=== PATIENT | female | born 1985 | race Caucasian/White ===

== ENCOUNTER 2017-05-02 11:37 | Emergency (ER) | payer MEDICAID, SELFPAY ==
[2017-05-02 11:39] VITALS: BP 131/87; PULSE 113; RESP 16; TEMP 37.2; O2SAT 97; BMI 32.8
--- NOTE | 2017-05-02 12:11 | CT_ITS ---
STUDY: CT BRAIN WITHOUT CONTRAST REASON FOR EXAM: Female, 31 years old. History of seizures. RADIATION DOSAGE (If Supplied By Facility): CTDIvol = ( 44.99 ) mGy, DLP = ( 796.11 ) mGycm TECHNIQUE: Transaxial CT imaging of the brain was performed without administration of intravenous contrast material. Individualized dose optimization techniques were used for this CT. COMPARISON: None. FINDINGS: Normal soft tissue structures. Normal calvarium. Normal size ventricles and extra-axial spaces for the patient's age. Normal white matter tracts of the cerebral hemispheres. Normal basal ganglia and thalami. Normal brainstem. Normal cerebellum. There is no intracranial hemorrhage. There are no findings of an acute ischemic infarction. Normal visualized paranasal sinuses. CT/Brain/Head without Contrast IMPRESSION: Normal unenhanced CT scan of the brain. Electronically Signed: Jorden Liu MD at 13:20 EST Tel [phone], Service support ,
[2017-05-02] MEDS: HYDROcodone Bitartrate/Apap 5/325 Tablet PO (12:34)
[2017-05-02 12:36] LABS: BUN 16 mg/dL (7-18); Creatinine, Serum 1.02 mg/dL (0.55-1.02); Estimated Creatinine Clearance 71.25 ml/min; Glucose 60 mg/dL (70-110)
[2017-05-02 12:37] LABS: Anion Gap 14 (5-15); BUN/Creat Ratio 15.7 RATIO (10-20); Calcium,Total 8.4 mg/dL (8.5-10.1); Chloride 106 mmol/L (98-107); EST Glomerular Filtration Rate 67 mL/min (>60); Est Glom Filt Rate - Afr Amer 81 mL/min (>60); Sodium Level 141 mmol/L (136-145)
[2017-05-02 12:41] LABS: Pregnancy, Serum, hCG Quali. NEGATIVE Negative (0-9 Nonpreg)
[2017-05-02 12:53] LABS: Absolute Lymphocyte Count 1.13 X10^3/ul (0.83-4.51); Absolute Neutrophil Count 3.8 X10^3/uL (2.0-7.7); Basophil# 0.03 X10^3/uL; Basophil% 0.5 % (0-1); Eosinophil# 0.19 X10^3/uL; Eosinophils% 3.4 % (0-5); Hematocrit 39.5 % (37-47); Hemoglobin 12.4 g/dl (12.0-15.0); Lymphocyte # 1.13 X10^3/ul (4.0); Lymphocyte % 19.9 % (19-41); Mean Corp Hgb Conc 31.4 g/gl (32-36); Mean Corpuscular Hgb 25.5 pg (27.0-32.0); Mean Corpuscular Volume 81.3 fL (81-99); Mean Platelet Vol. 10.1 fl (6.2-12.0); Monocyte% 8.8 % (0-10); Neutrophil # 3.82 X10^3/uL (2.7-7.7); Neutrophil % 67.4 % (47-70); Platelet Count 224 K/mm3 (150-450); RBC Distribution Width CV 15.9 % (11.6-14.6); RBC Distribution Width SD 47.3 fl (35.1-43.9); Red Blood Count 4.86 M/mm3 (4.2-5.4); White Blood Count 5.7 K/mm3 (4.4-11.0)
[2017-05-02 12:55] LABS: POSITIVE COUNT NO; POSITIVE DIFFERENTIAL NO; POSITIVE MORPHOLOGY NO
--- OUTSIDE RECORDS SUMMARY | 2017-05-02 13:24 | XMS RPT_ITS ---
:1985 Author Organization OHIP Care Team Providers Name Role Phone Minnie SELBY (PA-C) Attending Unavailable PAUL CHEEMA Referring Unavailable PAUL CHEEMA Referring Unavailable PAUL CHEEMA Attending Unavailable PAUL CHEEMA Attending Unavailable PAUL CHEEMA Attending Unavailable PAUL CHEEMA Attending Unavailable PAUL CHEEMA Attending Unavailable PAUL CHEEMA Referring Unavailable LETTY CURRY Attending Unavailable LILIANA PEREYRA (PA) Attending Unavailable HILARIO CAMPBELL Attending Unavailable Minnie SELBY (PA-C) Referring Unavailable HILARIO CAMPBELL Attending Unavailable HILARIO CAMPBELL Referring Unavailable Letty Curry Attending Unavailable Paul Cheema Primary Care Unavailable Paul Cheema Primary Care Unavailable Fredrick Harrell Attending Unavailable PROBLEMS PROBLEMS DATE TYPE CONDITION / CODE ATTENDING STATUS SOURCE 08/29/2016 Active Iron deficiency / NA Active [facility] E61.1(ICD-10) Clinic Main [place] Repository 09/22/2015 Active Personal history of NA Active [facility] urinary (tract) Clinic Main infections / [place] Z87.440(ICD-10) Repository 09/08/2015 Active Bariatric surgery NA Active [facility] status / Clinic Main Z98.84(ICD-10) [place] Repository 02/18/2017 Active Restless legs NA Active [facility] syndrome / Clinic Main G25.81(ICD-10) [place] Repository 02/18/2017 Active Other vitamin B12 NA Active [facility] deficiency anemias / Clinic Main D51.8(ICD-10) [place] Repository 08/23/2016 Admitting PERIANAL VENOUS [place], Active [facility] diagnosis THROMBOSIS / [facility] K64.5(ICD-10) Hospital Repository 08/23/2016 Admitting ANEMIA, UNSPECIFIED Rosa, Active [facility] diagnosis / D64.9(ICD-10) [facility] Hospital Repository 08/23/2016 Admitting PERSONAL HISTORY OF Rosa, Active [place] diagnosis OTH DISEASES OF THE [facility] FEMALE GEN / Hospital Z87.42(ICD-10) Repository 08/23/2016 Admitting PERSONAL HISTORY OF Rosa, Active [place] diagnosis URINARY CALCULI / [facility] Z87.442(ICD-10) Hospital Repository 05/31/2016 Active Other specified NA Active [place] [facility] Main states / [place] Z98.890(ICD-10) Repository 05/31/2016 Active Unknown / Minnie SELBY Active [place] UNK([address] (PA-C) Clinic Main Unknown) [place] Repository PROCEDURES PROCEDURES No Procedure Records FoundRESULTS RESULTS BASIC METABOLIC Collected: 05/02/2017 Status: F Source: EM PROFILE (BMP) 11:45 AM [facility] REPOSITORY TYPE CODE TESTS RESULT OUT OF RANGE REFERENCE UNITS LAB L501.0100 Low 70-110 mg/dL GLU 60 LAB L501.1000 Normal 7-18 mg/dL BUN 16 LAB L501.1100 Normal 0.55-1.02 mg/dL 1.02 CREAT,SERUM Result Comment: The validity of the calculated GFR AND GFRAA in patients over70 years has not been determined. Clinical correlation isessential. LAB L501.1110 Normal >60 mL/min EST GFR 67 Result Comment: Non- GFR Calc LAB L501.1115 Normal >60 mL/min EST GFR - 81 AA Result Comment: GFR Calc LAB L501.1255 Normal ml/min Estimated 71.25 CRCL LAB L501.1300 Normal 10-20 RATIO BUN/CRE 15.7 LAB L501.2200 Low 8.5-10 mg/dL CA 8.4 .1 LAB L501.5300 Normal 136-14 mmol/L NA 141 5 LAB L501.5600 Normal 3.5-5. mmol/L K 4.0 1 LAB L501.5900 Normal 98-107 mmol/L CL 106 LAB L501.6100 Normal 21.0-3 mmol/L CO2 21.0 2.0 LAB L501.6200 Normal 5-15 GAP 14 Performed By: #### L500.2500 ####[facility] [address] [place], [address] URINALYSIS WITH Collected: 05/01/2017 Status: F Source: [facility] 4:47 PM [facility] REPOSITORY TYPE CODE TESTS RESULT OUT OF RANGE REFERENCE UNITS LAB UCOL Abnormal Yellow Color Shyla Alert LAB [facility] Abnormal Clear Clarity Cloudy Alert LAB UGLUC Negative mg/dL Glucose, Urine Negative LAB UBIL Negative Bilirubin, Urine Negative LAB UKET Negative Ketones, Urine Negative LAB USPG 1.005-1.030 Specific 1.029 [place], Ur LAB UHGB Negative Hemoglobin/Blood, Negative Ur LAB UPH 4.5-8.0 pH 5.0 LAB UPROT Abnormal Negative mg/dL Protein, Urine 30 Alert LAB UUROB Normal Urobilinogen Normal LAB UNITR Abnormal Negative Nitrites Alert Positive LAB ULKEST Abnormal Negative Leukest 3+ Alert LAB UCOM Comments SEE COMMENT Result Comment: N/A LAB [facility] Urine [facility] SEE COMMENT Comment Result Comment: Interpret results with caution. Urine preservative tube not filled to the required volume. The BD Vacutainer Urinalysis preservative Plus tube must be filled with at least 7 mL and not more than 9 mL of urine in order to maintain the proper additive to urine ratio. LAB UWBC Abnormal Alert 0-5 /HPF WBC >25 LAB URBC 0-3 /HPF RBC 0-3 LAB UEPI /HPF Epithelial SEE Cells COMMENT Result Comment: FewSquamous Epithelial Cells LAB UCRYS Abnormal Alert 0 /HPF Crystals SEE COMMENT Result Comment: FewCalcium Oxalate Crystal Performed By: #### UAWMIC ####[facility] [address] [place], [place] [phone] IRON AND TIBC Collected: 05/01/2017 Status: F Source: [place] 4:42 PM [facility] REPOSITORY TYPE CODE TESTS RESULT OUT OF REFERENCE UNITS RANGE LAB IRN Low 41-186 ug/dL Iron 35 LAB TIBC High 232-386 ug/dL TIBC 525 LAB SAT Low 15-57 % Transferrin 7 Saturatn Performed By: #### IRON, CBCDIF ####[facility] [place], [place] [phone] CBC AND DIFFERENTIAL Collected: 05/01/2017 Status: F Source: [place] 4:42 PM [facility] REPOSITORY TYPE CODE TESTS RESULT OUT OF REFERENCE UNITS RANGE LAB WBC 3.70-11.00 k/uL WBC 6.26 LAB RBC 3.90-5.20 m/uL RBC 4.90 LAB HGB 11.5-15.5 g/dL Hemoglobin 12.7 LAB HCT 36.0-46.0 % Hematocrit 40.5 LAB MCV 80.0-100.0 fL MCV 82.7 LAB MCH Low 26.0-34.0 pG MCH 25.9 LAB MCHC 30.5-36.0 g/dL MCHC 31.4 LAB RDWCV High 11.5-15.0 % RDW-CV 15.9 LAB PLTCT 150-400 k/uL Platelet 272 Count LAB MPV 9.0-12.7 fL MPV 11.2 LAB ANEUT % Neut% 55.3 LAB AANEUT 1.45-7.50 k/uL Abs Neut 3.45 LAB ALYMP % Lymph% 32.4 LAB AALYMP 1.00-4.00 k/uL Abs Lymph 2.03 LAB AMONO % [place]% 8.3 LAB AAMONO <0.87 k/uL Abs [place] 0.52 LAB AEOS % Eosin% 3.5 LAB AAEOS <0.46 k/uL Abs Eosin 0.22 LAB ABASO % Baso% 0.5 LAB AABASO <0.11 k/uL Abs Baso 0.03 LAB AUNRBC 0 /100 WBC NRBCs 0.0 LAB ABNRBC <0.01 k/uL Absolute nRBC <0.01 LAB DTYP DTYPE Auto Diff Performed By: #### IRON, CBCDIF ####[facility] [place], [place] [phone] PROGRESS Observed: 05/01/2017 Status: COMPLETED Source: [place] 4:08 PM [facility] REPOSITORY HNO ID: [id number]: Paul Carbajal: (none) Author Type: PhysicianType: Progress NotesFiled: 05/01/2017 5:08 PMNote Text:Patient presents with:Anemia: discuss iron supplements and b12HPI: Patient presents today for office visit for office visit.Nursing Notes:Isabel Rodriges HEIDY 05/01/2017 4: 01 PM SignedStopped iron about 3 weeks ago due to constipation.Last B12 injection was January.Having issues with iron due to constipation.Is better since she stopped it.Discussed using fruit juice or try a different type of iron with stoolsoftener.No bloody or black stools.She wonders if she can have a uti. Has noticed an odor. No fever orchills.MEDICATIONS:Current Outpatient Prescriptions:buPROPion HCl ( WELLBUTRIN SR) 200 mg 12 hr tablet Take 1 tablet by mouthtwice daily.NUVARING 0.12-0.015 mg/24 hr vaginal ring INSERT 1 RING VAGINALLY ASDIRECTED. REMOVE AFTER 3 WEEKS AND WAIT 7 DAYS BEFORE INSERTING A NEW RINGcyanocobalamin (VITAMIN B-12) 1,000 mcg/mL soln Inject 1 mLintramuscularly once every month. 1 DOSE MONTHLYgabapentin ( NEURONTIN) 300 mg capsule Take 3 capsules by mouth daily atbedtime.valACYclovir (VALTREX) 500 mg tablet TAKE 1 TABLET BY MOUTH TWICE DAILY X3 DAYS THEN ONCE DAILYferrous sulfate 325 mg (65 mg iron) tablet Take 1 tablet by mouth twicedaily with meals. (Patient not taking: Reported on 05/01/2017)No current facility-administered medications for this visit.ALLERGIES:ALLERGIESAllergen Reactions- Adhesive Tape (Maite* Rash- Effexor [Venlafaxin* Other: See Comments Dry heaves, shaking uncotrollable- Latex RashPAST MEDICAL HISTORYDiagnosis Date- Anemia- Chlamydia 2003,2008,2013 x3 - Herpes simplex virus (HSV) infection- Hypoglycemia 08/12/13- Kidney stone- Marijuana use- Mental disorder- RLS (restless legs syndrome) Amezquita- Seizure Overdose of Wellbutrin- Thrombosed hemorrhoids 2013PA SURGICAL HISTORYProcedure Laterality Date- DELIVERY ONLY , low cervical- DELIVERY ONLY N/ A 04/23/2016- GASTRIC BYPASS HX 04/2011- PAST SURGICAL HISTORY OF kidney stoneFAMILY HISTORYProblem Relation Age of Onset- Alcohol/Drug Father- Hypertension Maternal Grandfather CHF- Heart Maternal Grandfather [place]- Cancer Paternal Grandmother throat cancer- Stroke Paternal Grandmother Social History Marital status: Spouse name: Years of education: 12 Number of children: 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 *Social History Main Topics Smoking status: Current Every Day Smoker Packs/day: 0.50 Years: 13.00 Types: Cigarettes Smokeless status: Never Used Alcohol use: Yes Comment: social, not while Drug use: No Comment: Hx marijuana use Sexual activity: Yes control/protection: Other Comment: depo provera, mirena removed 09/29/07Reviewed current medications, allergies, past medical history, surgicalhistory, family history and social history today.REVIEW OF SYSTEMSAll other reviewed and negative other than HPI.VITALS:BP 104/72 Pulse 88 Resp 14 Wt 91.2 kg (201 lb) BMI 33.45 kg/m2Last 4 Encounter Wt Readings: Date: Wt: 05/01/2017 91.2 kg (201 lb) 02/18/2017 91.6 kg (202 lb ) 12/26/2016 88.9 kg (196 lb) 11/05/2016 88.2 kg (194 lb 6.4 oz)PHYSICAL EXAMINATION:General appearance: Well appearing, alert, in no acute distress,well-hydrated, well nourished.Skin: Skin color, texture, turgor normal , no suspicious rashes or lesionsHead: Normocephalic, no masses, lesions, tenderness or abnormalitiesNeck: Supple, no adenopathy; thyroid symmetric, normal size, no bruitsBack: Normal examLungs: Lungs clear to auscultation. No wheezing, rhonchi , ralesHeart: RRR without murmur, gallop, or rubs. No ectopyAbdomen: Normal abdominal exam, Abdomen soft, non-tender. Bowel soundsnormal. No masses, organomegalyExtremities: No deformities, edema, skin discoloration, clubbing orcyanosis. Good capillary refill.ASSESSMENT/PLAN:1. Iron deficiency - ICD9: 280.9, ICD10: E61.1 (primary diagnosis)- recheck labs. Call if any issues. May need to consider other ways ofgetting iron as above or even iv iron. Check ifobt as ordered.- IRON + TIBC- CBC + DIFF2. Other vitamin B12 deficiency anemia - ICD9: 281.1, ICD10: D51.8- continue b123. History of gastric bypass - ICD9: V45.86, ICD10: Z98.84- IRON + TIBC- CBC + DIFF4. History of recurrent UTI (urinary tract infection) - ICD9 : V13.02,ICD10: Z87.440- recheck urine.- URINALYSIS WITH MICROSCOPIC- URINE CULTUREPaul Cheema MD CNOV Observed: 05/01/2017 Status: COMPLETED Source: [place] 3:40 PM [facility] REPOSITORY Office Visit (FAMPWS) ---------CITLALI BECKWITH ([id number]) 1985 [facility] Time Provider Department05/01/17 3:40 PM [facility] During your visit today, we recorded the following information about you: Pulse Respiration Blood pressure Weight 88/minute 14/minute 104/72 91.2 kgIsabel Ritchieherminio MOODY 05/01/2017 4:01 PM SignedStopped iron about 3 weeks ago due to constipation.Last B12 injection was January.Paul Cheema MD 05/01/2017 5:08 PM SignedPatient presents with:Anemia: discuss iron supplements and b12HPI: Patient presents today for office visit for office visit.Nursing Notes:Isabel Zahira MOODY 05/01/2017 4:01 PM SignedStopped iron about 3 weeks ago due to constipation.Last B12 injection was January.Having issues with iron due to constipation.Is better since she stopped it.Discussed using fruit juice or try a different type of iron with stoolsoftener.No bloody or black stools.She wonders if she can have a uti. Has noticed an odor. No fever or chills.MEDICATIONS:Current Outpatient Prescriptions:buPROPion HCl ( WELLBUTRIN SR) 200 mg 12 hr tablet Take 1 tablet by mouth twicedaily.NUVARING 0.12-0.015 mg/24 hr vaginal ring INSERT 1 RING VAGINALLY DIRECTED.REMOVE AFTER 3 WEEKS ANDamp; WAIT 7 DAYS BEFORE INSERTING A NEW RINGcyanocobalamin (VITAMIN B-12) 1,000 mcg/mL soln Inject 1 mL intramuscularlyonce every month. 1 DOSE MONTHLYgabapentin (NEURONTIN) 300 mg capsule Take 3 capsules by mouth daily atbedtime.valACYclovir (VALTREX) 500 mg tablet TAKE 1 TABLET BY MOUTH TWICE DAILY X 3DAYS THEN ONCE DAILYferrous sulfate 325 mg (65 mg iron) tablet Take 1 tablet by mouth twice dailywith meals. (Patient not taking: Reported on 05/01/2017)No current facility-administered medications for this visit.ALLERGIES:ALLERGIESAllergen Reactions- Adhesive Tape (Maite* Rash- Effexor [Venlafaxin* Other: See Comments Dry heaves, shaking uncotrollable- Latex RashPAST MEDICAL HISTORYDiagnosis Date- Anemia- Chlamydia 2003,2008,2013 x3- Herpes simplex virus (HSV) infection- Hypoglycemia 08/12/13- Kidney stone- Marijuana use- Mental disorder- RLS ( restless legs syndrome) Amezquita- Seizure Overdose of Wellbutrin- Thrombosed hemorrhoids 2013PA SURGICAL HISTORYProcedure Laterality Date- DELIVERY ONLY , low cervical- DELIVERY ONLY N/A 04/23/2016- GASTRIC BYPASS HX 04/2011- PAST SURGICAL HISTORY OF kidney stoneFAMILY HISTORYProblem Relation Age of Onset- Alcohol/Drug Father- Hypertension Maternal Grandfather CHF- Heart Maternal Grandfather [place]- Cancer Paternal Grandmother throat cancer- Stroke Paternal Grandmother Social History Marital status: Spouse name: Years of education: 12 Number of children: 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 *Social History Main Topics Smoking status: Current Every Day Smoker Packs/day: 0.50 Years: 13.00 Types: Cigarettes Smokeless status: Never Used Alcohol use: Yes Comment: social, not while Drug use: No Comment: Hx marijuana use Sexual activity: Yes control/protection: Other Comment: depo provera, mirena removed 09/29/07Reviewed current medications, allergies, past medical history, surgicalhistory, family history and social history today.REVIEW OF SYSTEMSAll other reviewed and negative other than HPI.VITALS:BP 104/72 Pulse 88 Resp 14 Wt 91.2 kg (201 lb) BMI 33.45 kg/ m2Last 4 Encounter Wt Readings: Date: Wt: 05/01/2017 91.2 kg (201 lb) 02/18/2017 91.6 kg (202 lb) 12/26/2016 88.9 kg (196 lb) 11/05/2016 88.2 kg (194 lb 6.4 oz)PHYSICAL EXAMINATION:General appearance: Well appearing, alert, in no acute distress, well-hydrated,well nourished.Skin: Skin color, texture, turgor normal, no suspicious rashes or lesionsHead: Normocephalic, no masses, lesions, tenderness or abnormalitiesNeck: Supple, no adenopathy; thyroid symmetric, normal size, no bruitsBack: Normal examLungs: Lungs clear to auscultation. No wheezing, rhonchi , ralesHeart: RRR without murmur, gallop, or rubs. No ectopyAbdomen: Normal abdominal exam, Abdomen soft, non-tender. Bowel sounds normal.No masses, organomegalyExtremities: No deformities, edema, skin discoloration, clubbing or cyanosis.Good capillary refill.ASSESSMENT/PLAN:1. Iron deficiency - ICD9: 280.9, ICD10: E61.1 (primary diagnosis)- recheck labs. Call if any issues. May need to consider other ways of gettingiron as above or even iv iron. Check ifobt as ordered.- IRON + TIBC- CBC + DIFF2. Other vitamin B12 deficiency anemia - ICD9: 281.1, ICD10: D51.8- continue b123. History of gastric bypass - ICD9: V45.86, ICD10: Z98.84- IRON + TIBC- CBC + DIFF4. History of recurrent UTI (urinary tract infection) - ICD9: V13.02, ICD10:Z87.440- recheck urine.- URINALYSIS WITH MICROSCOPIC- URINE CULTURESTEVE Ashleyeferring Provider: SELF [200]Allergies As of Date: Noted Allergy ReactionADHESIVE TAPE (ROSINS) 08/14/2013 2 - RashEFFEXOR ( VENLAFAXINE) 05/01/2017 14 - Other: See Comments Comments: Dry heaves, shaking uncotrollableLATEX 07/09/2007 2 - RashDate Reviewed: 05/01/2017Reviewed by: Isabel Rodriges LPN - Fully AssessedReason for Visit: Anemia [6] Cmt: discuss iron supplements and [id number] Visit Diagnosis:Iron deficiency [E61.1] Other Visit Diagnoses:Other vitamin B12 deficiency anemia [D51.8] 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] History of recurrent UTI (urinary tract infection) [Z87.440]Order(s ):IRON + TIBC [SQIRON] Order #: [id number] FUTURE CBC + DIFF [SQCBCDIF] Order #: [id number] FUTURE URINALYSIS WITH MICROSCOPIC [SQUAWMIC] Order #: [id number]. #: [id number] URINE CULTURE [SQURCUL] Order #: [id number] FUTURE cyanocobalamin 1,000 mcg/mL solnInject 1 mL intramuscularly once every month.Disp: 1 mLRfl: 12Prescriptions as of 05/01/2017 Sig: BUPROPION HCL SR 200 MG TABLE* Take 1 tablet by mouth twice * NUVARING 0.12 MG -0.015 MG/24* INSERT 1 RING VAGINALLY DI* CYANOCOBALAMIN (VIT B- 12) 1,0* Inject 1 mL intramuscularly o* GABAPENTIN 300 MG CAPSULE Take 3 capsules by mouth madina* CYANOCOBALAMIN (VIT B-12) 1,0* Inject 1 mL intramuscularly o* VALACYCLOVIR 500 MG TABLET TAKE 1 TABLET BY MOUTH TWICE * FERROUS SULFATE 325 MG (65 MG* Take 1 tablet by mouth twice * Patient not taking: Reported on 05/01/2017Problem List As Of Date Noted Resolved ADJUSTMENT REACTION NOS [F43.20] INVALID FOR*07/14/2007 Seborrheic dermatitis, unspecified [L21.9] INVALID FOR*08/29/2016 Attention deficit disorder [F98.8] INVALID FOR*08/29/2016 More... Adjustment disorder with depressed mood [F43.21]INVALID FOR*08/29/2016 Tobacco use disorder [F17.200] INVALID FOR*09/13/2015 More... [facility]* INVALID FOR*09/13/2015 Class: Chronic More... Routine gynecological examination [Z01.419] INVALID FOR*09/13/2015 Class: Chronic More... Morbid obesity (HCC) [E66.01] INVALID FOR*09/13/2015 Insomnia [G47.00] INVALID FOR* Thrombosed external hemorrhoid [K64.5] INVALID FOR*09/13/2015 Recurrent UTI ( urinary tract infection) complic*INVALID FOR*08/29/2016 More... Kidney stones [N20.0] INVALID FOR*09/13/2015 Marijuana abuse [F12.10] INVALID FOR* 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] INVALID FOR* History of delivery , currently pregnan*INVALID FOR*05/07/2016 More... History of recurrent UTI (urinary tract infecti*INVALID FOR* More... History of herpes genitalis [Z86.19] INVALID FOR* More... History of depression [Z86.59] INVALID FOR* More... Tobacco use in [O99.330] INVALID FOR*08/29/2016 More... History of marijuana use [Z87.898] INVALID FOR* More... H/O macrosomia in infant in prior , cu*INVALID FOR* More... Patient requested diagnostic testing [Z01.89] INVALID FOR*11/21/2015 More... History of kidney stones [Z87.442] INVALID FOR*09/13/2015 Trichomonal vaginitis during in secon*INVALID FOR*08/29/2016 More... Urgency of urination [R39.15] INVALID FOR*08/29/2016 Frequency of micturition [R35.0] INVALID FOR* UTI (urinary tract infection) in , ant*INVALID FOR*02/16/2016 RLS (restless legs syndrome) [G25.81] INVALID FOR* Iron deficiency [E61.1] INVALID FOR * Anemia due to vitamin B12 deficiency [D51.9] INVALID FOR*Visit Notes:>> Isabel Rodriges LPN Wed May 01, 2017 3:57 PM Status: SignedStopped iron about 3 weeks ago due to constipation.Last B12 injection was January.Prescriptions ordered this encounter Disp Refills Start End CYANOCOBALAMIN (VIT B-12) 1,000 MCG/* 1 mL 12 05/01/2017 Class: Back Office Route: INTRAMUSCULA Sig: Inject 1 mL intramuscularly once every month.Medications Discontinued During This Encounter cyanocobalamin (VITAMIN B-12) 1,000 * 1 mL 0 12/26/2016 05/01/2017 Class: Back Office Route: INTRAMUSCULAR Sig: Inject 1 mL intramuscularly one time only for 1 dose. Disc: Reason for discontinue is not on file. cyanocobalamin (VITAMIN B-12) 1,000 * 1 mL 11 12/28/2015 05/01/2017 Class: Back Office Route: INTRAMUSCULAR Sig: Inject 1 mL intramuscularly one time only for 1 dose. Disc: Reason for discontinue is not on file. cyanocobalamin 1,000 mcg/mL soln 1 mL 0 11/01/2015 05/01/2017 Class: Back Office Route: INTRAMUSCULAR Sig: Inject 1 mL intramuscularly one time only for 1 dose. Disc: Reason for discontinue is not on file.Disposition: Return in about 6 months (around 10/29/2017).Follow-up and Disposition History RecordedEncounter Number: [id number] Status:Closed by PAUL CHEEMA MD on 05/01/17 OBSOLETE Observed: 03/06/2017 Status: COMPLETED Source: [place] 12:00 AM [facility] REPOSITORY Refill (WOOB) -------CITLALI BECKWITH ([id number]) 1985 [facility] Time Provider Vjzormdhlt72/6/17 ANA SALINAS (JACKY) WOOB During your visit today, we recorded the following information about you:Christa Zaragoza RN 03/07/2017 8: 15 AM SignedPatient last seen for exam on 05/30/16.Christa BUCKLEYllergies As of Date: 03/06/2017 Noted Allergy ReactionADHESIVE TAPE (ROSINS) 08/14/2013 2 - RashLATEX 07/09/2007 2 - RashDate Reviewed: 02/18/2017Reviewed by: Isable Rodriges LPN - Fully AssessedReason for Visit: Refill Request [94]Order(s):valACYclovir (VALTREX) 500 mg tabletTAKE 1 TABLET BY MOUTH TWICE DAILY X 3 DAYS THEN ONCE DAILYDisp: 90 tabletRfl : 0Prescriptions as of 03/06/2017 Sig: VALACYCLOVIR 500 MG TABLET TAKE 1 TABLET BY MOUTH TWICE * NUVARING 0.12 MG -0.015 MG/24* INSERT 1 RING VAGINALLY DI* FERROUS SULFATE 325 MG (65 MG* Take 1 tablet by mouth twice * CYANOCOBALAMIN (VIT B-12) 1,0* Inject 1 mL intramuscularly o* BUPROPION XL 300 MG 24 HR TAB Take 1 tablet by mouth once d* GABAPENTIN 300 MG CAPSULE Take 3 capsules by mouth madina*Problem List As Of Date 03/06/2017 Noted Resolved ADJUSTMENT REACTION NOS [F43.20] INVALID FOR*2007 Seborrheic dermatitis, unspecified [L21.9] INVALID FOR*08/29/2016 Attention deficit disorder [F98.8] INVALID FOR*08/29/2016 More... Adjustment disorder with depressed mood [F43.21]INVALID FOR*08/29/2016 Tobacco use disorder [F17.200] INVALID FOR*09/13/2015 More... [facility]* INVALID FOR*09/13/2015 Class: Chronic More... Routine gynecological examination [Z01.419] INVALID FOR*09/13/2015 Class: Chronic More... Morbid obesity (HCC) [E66.01] INVALID FOR*09/13/2015 Insomnia [G47.00] INVALID FOR*09/13/2015 Thrombosed external hemorrhoid [K64.5] INVALID FOR*09/13/2015 Recurrent UTI (urinary tract infection) complic*INVALID FOR*08/29/2016 More... Kidney stones [ N20.0] INVALID FOR*09/13/2015 Marijuana abuse [F12.10] INVALID FOR*08/29/2016 History of gastric bypass [Z98.890] INVALID FOR* History of delivery, currently pregnan*INVALID FOR*05/07/2016 More... History of recurrent UTI (urinary tract infecti*INVALID FOR* More... History of herpes genitalis [Z86.19] INVALID FOR* More... History of depression [Z86.59] INVALID FOR* More... Tobacco use in [O99.330] INVALID FOR*08/29/2016 More... History of marijuana use [Z87.898] INVALID FOR* More... H/O macrosomia in in prior , cu*INVALID FOR*08/29/2016 More... Patient requested diagnostic testing [ Z01.89] INVALID FOR*11/21/2015 More... History of kidney stones [Z87.442] INVALID FOR*09/13/2015 Trichomonal vaginitis during in secon*INVALID FOR*08/29/2016 More... Urgency of urination [R39.15] INVALID FOR*08/29/2016 Frequency of micturition [R35.0] INVALID FOR*08/29/2016 UTI (urinary tract infection) in , ant*INVALID FOR*02/16/2016 RLS (restless legs syndrome) [G25.81] INVALID FOR* Iron deficiency [E61.1] INVALID FOR* Anemia due to vitamin B12 deficiency [D51.9] INVALID FOR*Prescriptions ordered this encounter Disp Refills Start End VALACYCLOVIR 500 MG TABLET 90 t* 0 03/07/2017 Sig: TAKE 1 TABLET BY MOUTH TWICE DAILY X 3 DAYS THEN ONCE DAILYEncounter Number: [id number] Status:Closed by LUCIO DAVID MD on 03/07/17 OBSOLETE Observed: 03/05/2017 Status: COMPLETED Source: [place] 12:00 AM [facility] REPOSITORY Refill (WOOB) -------CITLALI BECKWITH ([id number]) 1985 [facility] Time Provider Auapueztww47/5/17 HILARIO CAMPBELL During your visit today, we recorded the following information about you:Christa Zaragoza RN 03/05/2017 9: 33 AM SignedRefill request received from pharmacy for patients Nuvaring Rx. Patient lastseen in the office on 05/30/16 for exam. Please file refill ifappropriate.Christa Zaragoza RNAllergies As of Date: 03/05/2017 Noted Allergy ReactionADHESIVE TAPE (ROSINS) 08/14 2 - RashLATEX 07/09/2007 2 - RashDate Reviewed: 2016Reviewed by: Isabel Rodriges LPN - Fully AssessedReason for Visit: Refill Request [94]Order(s): NUVARING 0.12-0.015 mg/24 hr vaginal ringINSERT 1 RING VAGINALLY DIRECTED. REMOVE AFTER 3 WEEKS AND WAIT 7 DAYS BEFORE INSERTING A NEW RINGDisp: 1 EachRfl: 3Prescriptions as of 03/05/2017 Sig: NUVARING 0.12 MG -0.015 MG/24* INSERT 1 RING VAGINALLY DI* FERROUS SULFATE 325 MG (65 MG* Take 1 tablet by mouth twice * CYANOCOBALAMIN (VIT B-12) 1,0* Inject 1 mL intramuscularly o* BUPROPION XL 300 MG 24 HR TAB Take 1 tablet by mouth once d* GABAPENTIN 300 MG CAPSULE Take 3 capsules by mouth madina*Problem List As Of Date 03/05/2017 Noted Resolved ADJUSTMENT REACTION NOS [F43.20] INVALID FOR*2007 Seborrheic dermatitis, unspecified [L21.9] INVALID FOR*08/29/2016 Attention deficit disorder [F98.8] INVALID FOR*08/29/2016 More... Adjustment disorder with depressed mood [F43.21]INVALID FOR*08/29/2016 Tobacco use disorder [F17.200] INVALID FOR*09/13/2015 More... [facility]* INVALID FOR*09/13/2015 Class: Chronic More... Routine gynecological examination [Z01.419] INVALID FOR*09/13/2015 Class: Chronic More... Morbid obesity (HCC) [E66.01] INVALID FOR*09/13/2015 Insomnia [G47.00] INVALID FOR*09/13/2015 Thrombosed external hemorrhoid [K64.5] INVALID FOR*09/13/2015 Recurrent UTI (urinary tract infection) complic*INVALID FOR*08/29/2016 More... Kidney stones [ N20.0] INVALID FOR*09/13/2015 Marijuana abuse [F12.10] INVALID FOR*08/29/2016 History of gastric bypass [Z98.890] INVALID FOR* History of delivery, currently pregnan*INVALID FOR*05/07/2016 More... History of recurrent UTI (urinary tract infecti*INVALID FOR* More... History of herpes genitalis [Z86.19] INVALID FOR* More... History of depression [Z86.59] INVALID FOR* More... Tobacco use in [O99.330] INVALID FOR*08/29/2016 More... History of marijuana use [Z87.898] INVALID FOR* More... H/O macrosomia in in prior , cu*INVALID FOR*08/29/2016 More... Patient requested diagnostic testing [ Z01.89] INVALID FOR*11/21/2015 More... History of kidney stones [Z87.442] INVALID FOR*09/13/2015 Trichomonal vaginitis during in secon*INVALID FOR*08/29/2016 More... Urgency of urination [R39.15] INVALID FOR*08/29/2016 Frequency of micturition [R35.0] INVALID FOR*08/29/2016 UTI (urinary tract infection) in , ant*INVALID FOR*02/16/2016 RLS (restless legs syndrome) [G25.81] INVALID FOR* Iron deficiency [E61.1] INVALID FOR* Anemia due to vitamin B12 deficiency [D51.9] INVALID FOR*Prescriptions ordered this encounter Disp Refills Start End NUVARING 0.12 MG -0.015 MG/24 HR VAG* 1 Ea* 3 03/05/2017 Sig: INSERT 1 RING VAGINALLY DIRECTED. REMOVE AFTER 3 WEEKS AND WAIT 7 DAYS BEFORE INSERTING A NEW RINGMedications Discontinued During This Encounter Etonogestrel-Ethinyl Estradiol (NUVA* 1 Ea* 12 05/30/2016 03/05/2017 Class: Print RX Route: VAGINAL Sig: Use 1 Each vaginally as directed. use one ring for 3-4 weeks, remove for 4-7 days and repeat Disc: Reason for discontinue is not on file. Status:Closed by HILARIO CAMPBELL MD on 03/05/17 CBC AND DIFFERENTIAL Collected: 02/18/2017 Status: F Source: [place] 9:22 AM [facility] REPOSITORY TYPE CODE TESTS RESULT OUT OF REFERENCE UNITS RANGE LAB WBC 3.70-11.00 k/uL WBC 5.89 LAB RBC 3.90-5.20 m/uL RBC 4.57 LAB HGB Low 11.5-15.5 g/dL Hemoglobin 10.9 LAB HCT 36.0-46.0 % Hematocrit 36.3 LAB MCV Low 80.0-100.0 fL MCV 79.4 LAB MCH Low 26.0-34.0 pG MCH 23.9 LAB MCHC Low 30.5-36.0 g/dL MCHC 30.0 LAB RDWCV High 11.5-15.0 % RDW-CV 15.4 LAB PLTCT 150-400 k/uL Platelet 315 Count LAB MPV 9.0-12.7 fL MPV 10.6 LAB ANEUT % Neut% 70.3 LAB AANEUT 1.45-7.50 k/uL Abs Neut 4.12 LAB ALYMP % Lymph% 22.4 LAB AALYMP 1.00-4.00 k/uL Abs Lymph 1.32 LAB AMONO % [place]% 5.4 LAB AAMONO <0.87 k/uL Abs [place] 0.32 LAB AEOS % Eosin% 1.4 LAB AAEOS <0.46 k/uL Abs Eosin 0.08 LAB ABASO % Baso% 0.5 LAB AABASO <0.11 k/uL Abs Baso 0.03 LAB AUNRBC 0 /100 WBC NRBCs 0.0 LAB ABNRBC <0.01 k/uL Absolute nRBC <0.01 LAB DTYP DTYPE Auto Diff Performed By: #### CBCDIF, BMP, IRON, B12 ####[facility] [address] [place], [place] [phone] BASIC METABOLIC PANL Collected: 02/18/2017 Status: F Source: [place] 9:22 AM [facility] REPOSITORY TYPE CODE TESTS RESULT OUT OF REFERENCE UNITS RANGE LAB GLU 74-99 mg/dL Glucose 96 Result Comment: The [place] [employer] (ADA) provides guidance for cutoff values for fasting glucose and random glucose. The ADA defines fasting as no caloric intake for at least 8 hours. Fasting plasma glucose results between 100 to 125 mg/dL indicate increased risk for diabetes (prediabetes).Fasting plasma glucose results greater than or equal to 126 mg/dL meet the criteria for diagnosis of diabetes. In the absence of unequivocal hyperglycemia, results should be confirmed by repeat testing. In a patient with classic symptoms of hyperglycemia or hyperglycemic crisis, random plasma glucose results greater than or equal to 200 mg/dL meet the criteria for diagnosis of diabetes.Reference: Standards of Medical Care in Diabetes 2016 , [place] [employer] Association. Diabetes Care. 2016.39(Suppl 1). LAB BUN 7-21 mg/dL BUN 12 LAB CRET 0.58-0.96 mg/dL Creatinine 0.81 LAB NA 136-144 mmol/L Sodium 137 LAB K 3.7-5.1 mmol/L Potassium 3.9 LAB CL 97-105 mmol/L Chloride 101 LAB CO2 22-30 mmol/L CO2 24 LAB AGAP 9-18 mmol/L Anion Gap 12 LAB CA 8.5-10.2 mg/dL Calcium, Total 8.6 LAB GFRAA eGFR- Amer. >60 LAB GFRNAA . eGFR-All Other Races >60 Result Comment: eGFR (Estimated GFR) Units of measure: mL/min/1.73 meters squaredeGFR is derived from the reexpressed MDRD Study equation using the following parameters: serum creatinine, age, gender and race. The creatinine assay has been calibrated to be traceable to IDMS.An eGFR <60 mL/min/1.73m2 for >3 months is consistent with chronic kidney disease. Refer to KDOQI guidelines for clinical interpretation.In patients with unstable renal function, e.g. those with acute kidney injury, the eGFR may not accurately reflect actual GFR. Performed By: #### CBCDIF, BMP, IRON, B12 ####[facility] [place], [place] [phone] IRON AND TIBC Collected: 02/18/2017 Status: F Source: [place] 9:22 AM [facility] REPOSITORY TYPE CODE TESTS RESULT OUT OF REFERENCE UNITS RANGE LAB IRN Low 41-186 ug/dL Iron 30 LAB TIBC High 232-386 ug/dL TIBC 510 LAB SAT Low 15-57 % Transferrin 6 Saturatn Performed By: #### CBCDIF, BMP, IRON, B12 ####[facility] [place], [place] [phone] VITAMIN B12 Collected: 02/18/2017 Status: F Source: [place] 9:22 AM [facility] REPOSITORY TYPE CODE TESTS RESULT OUT OF REFERENCE UNITS RANGE LAB B12 High 211-946 pg/mL Vitamin B12 >2000 Performed By: #### CBCDIF, BMP, IRON, B12 ####[facility] [place], [place] [phone] PROGRESS Observed: 02/18/2017 Status: COMPLETED Source: [place] 8:51 AM [facility] REPOSITORY HNO ID: [id number]: Paul Carbajal: (none) Author Type: PhysicianType: Progress NotesFiled: 02/18/2017 9:52 AMNote Text:Patient presents with:RecheckPain (foot): bottom of left foot 2 months tried OTC wart treatmentHPI: Patient presents today for office visit for follow up.Psych: overall is better but could still improve. Set up an appt to [facility]. Sees them on 03/11.meds overall area doing well. No side effects. Has been able to decreasetobacco.Still doing b12. Overall doing well.DERM: has a spot on the bottom of her foot. Did several freeze offtreatments at home. Is not sure what it is.No trauma.RLS is stable.MEDICATIONS:Current Outpatient Prescriptions:buPROPion XL (WELLBUTRIN XL) 300 mg 24 hr tablet Take 1 tablet by mouthonce daily.gabapentin (NEURONTIN) 300 mg capsule Take 3 capsules by mouth daily atbedtime.cyanocobalamin (VITAMIN B-12) 1,000 mcg/mL soln Inject 1 mLintramuscularly once every month. 1 DOSE MONTHLYEtonogestrel-Ethinyl Estradiol (NUVARING) 0.12-0.015 mg/24 hr vaginal ringUse 1 Each vaginally as directed. use one ring for 3-4 weeks, remove for4-7 days and repeatNo current facility-administered medications for this visit.ALLERGIES:ALLERGIESAllergen Reactions- Adhesive Tape (Maite* Rash- Latex RashPAST MEDICAL HISTORYDiagnosis Date- Anemia- Chlamydia 2003,2008, 2013 x3- Herpes simplex virus (HSV) infection- Hypoglycemia 08/12/13- Kidney stone- Marijuana use- Mental disorder- RLS (restless legs syndrome) Amezquita- Seizure Overdose of Wellbutrin- Thrombosed hemorrhoids 2013PA SURGICAL HISTORYProcedure Laterality Date- DELIVERY ONLY , low cervical- DELIVERY ONLY N/ A 04/23/2016- GASTRIC BYPASS HX 04/2011- PAST SURGICAL HISTORY OF kidney stoneFAMILY HISTORYProblem Relation Age of Onset- Alcohol/Drug Father- Hypertension Maternal Grandfather CHF- Heart Maternal Grandfather [place]- Cancer Paternal Grandmother throat cancer- Stroke Paternal Grandmother Social History Marital status: Spouse name: Years of education: 12 Number of children: 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 *Social History Main Topics Smoking status: Current Every Day Smoker Packs/day: 0.50 Years: 13.00 Types: Cigarettes Alcohol use: Yes Comment: social, not while Drug use: No Comment: Hx marijuana use Sexual activity: Yes control/protection: Other Comment: depo provera, mirena removed 09/29/07Reviewed current medications, allergies, past medical history, surgicalhistory, family history and social history today.REVIEW OF SYSTEMSAll other reviewed and negative other than HPI.HEALTH MAINTENANCE:Reviewed health maintenance issues today and recommended the following indetail.ONE PNEUMOVAX PRIOR TO AGE 65 due on 12/30/2003HPV EVERY 5 YEARS due on 2014VITALS:BP 104/72 Pulse 80 Resp 14 Wt 91.6 kg (202 lb) BMI 33.61 kg/m2Last 4 Encounter Wt Readings: Date: Wt: 02/18/2017 91.6 kg (202 lb) 12/26/2016 88.9 kg (196 lb) 2016 88.2 kg (194 lb 6.4 oz) 08/29/2016 90.7 kg (200 lb)PHYSICAL EXAMINATION: General appearance: Well appearing, alert, in no acute distress,well-hydrated, well nourished.Skin: Skin color, texture, turgor normal, no suspicious rashes or lesionsLungs: Lungs clear to auscultation. No wheezing, rhonchi, ralesHeart: RRR without murmur, gallop, or rubs. No ectopyAbdomen: Normal abdominal exam, Abdomen soft, non-tender. Bowel soundsnormal. No masses, organomegalyExtremities: No deformities, edema, skin discoloration, clubbing orcyanosis. Good capillary refill.Small callus vs early plantars wart on right foot.ASSESSMENT/PLAN:1. RLS (restless legs syndrome) - ICD9: 333.94, ICD10: G25.81 (primarydiagnosis)- slightly worse. Check labs that were previously ordered.- BASIC METABOLIC PNL2. Other vitamin B12 deficiency anemia - ICD9: 281.1, ICD10: D51.8-continue.- CYANOCOBALAMIN ( VIT B-12) 1,000 MCG/ML INJECTION SOLUTION3. History of gastric bypass - ICD9: V45.86, ICD10: Z98.890- CYANOCOBALAMIN (VIT B-12) 1,000 MCG/ML INJECTION SOLUTION4. Iron deficiency - ICD9: 280.9, ICD10: E61.1- check labs.5. Plantar wart - ICD9: 078.12, ICD10: B07.0- try compound w treatments. Call if not better in a month and considercryo.SHERRI Ashley in six months and prn. CNOV Observed: 02/18/2017 Status: COMPLETED Source: [place] 8:40 AM [facility] REPOSITORY Office Visit (FAMPWS) ---------CITLALI BECKWITH ([id number]) 1985 [facility] Time Provider Zzandmyrzo80/20/17 8:40 AM PAUL CHEEMA During your visit today, we recorded the following information about you: Pulse Respiration Blood pressure Weight 80/minute 14/minute 104/72 91.6 kgIsabel Rodriges HEIDY 02/18/2017 8:41 AM SignedBottom of left foot with painful area for about 2 months. Thought was maybe aplantars wart so tried OTC treatment twice and no change. Not sure if maybejust area of dry skin.Paul Cheema MD 02/18/2017 9:52 AM SignedPatient presents with: RecheckPain (foot): bottom of left foot 2 months tried OTC wart treatmentHPI: Patient presents today for office visit for follow up.Psych: overall is better but could still improve. Set up an appt to [facility]. Sees them on 03/11.meds overall area doing well. No side effects. Has been able to decreasetobacco.Still doing b12. Overall doing well.DERM: has a spot on the bottom of her foot. Did several freeze off treatmentsat home. Is not sure what it is.No trauma.RLS is stable.MEDICATIONS:Current Outpatient Prescriptions:buPROPion XL (WELLBUTRIN XL ) 300 mg 24 hr tablet Take 1 tablet by mouth oncedaily.gabapentin (NEURONTIN) 300 mg capsule Take 3 capsules by mouth daily atbedtime.cyanocobalamin (VITAMIN B-12) 1,000 mcg/mL soln Inject 1 mL intramuscularlyonce every month. 1 DOSE MONTHLYEtonogestrel-Ethinyl Estradiol (NUVARING) 0.12- 0.015 mg/24 hr vaginal ring Use1 Each vaginally as directed. use one ring for 3-4 weeks, remove for 4- 7 daysand repeatNo current facility-administered medications for this visit.ALLERGIES: ALLERGIESAllergen Reactions- Adhesive Tape (Maite* Rash- Latex RashPAST MEDICAL HISTORYDiagnosis Date- Anemia- Chlamydia 2003,2008,2013 x3- Herpes simplex virus (HSV) infection- Hypoglycemia 08/12/13- Kidney stone- Marijuana use- Mental disorder- RLS (restless legs syndrome) Amezquita- Seizure Overdose of Wellbutrin- Thrombosed hemorrhoids 2013PA SURGICAL HISTORYProcedure Laterality Date- DELIVERY ONLY , low cervical- DELIVERY ONLY N/A 04/23/2016- GASTRIC BYPASS HX 04/2011- PAST SURGICAL HISTORY OF kidney stoneFAMILY HISTORYProblem Relation Age of Onset- Alcohol/Drug Father- Hypertension Maternal Grandfather CHF- Heart Maternal Grandfather [place]- Cancer Paternal Grandmother throat cancer- Stroke Paternal Grandmother Social History Marital status: Spouse name: Years of education: 12 Number of children: 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 *Social History Main Topics Smoking status: Current Every Day Smoker Packs/day: 0.50 Years: 13.00 Types: Cigarettes Alcohol use: Yes Comment: social, not while Drug use: No Comment: Hx marijuana use Sexual activity: Yes control/ protection: Other Comment: depo provera, mirena removed 09/29/07Reviewed current medications, allergies, past medical history, surgicalhistory, family history and social history today.REVIEW OF SYSTEMSAll other reviewed and negative other than HPI.HEALTH MAINTENANCE:Reviewed health maintenance issues today and recommended the following indetail.ONE PNEUMOVAX PRIOR TO AGE 64 due on 2003HPV EVERY 5 YEARS due on 2014VITALS:BP 104/72 Pulse 80 Resp 14 Wt 91.6 kg (202 lb) BMI 33.61 kg/m2Last 4 Encounter Wt Readings: Date: Wt: 02/18/2017 91.6 kg (202 lb) 88.9 kg (196 lb) 11/05/2016 88.2 kg (194 lb 6.4 oz) 08/29/2016 90.7 kg (200 lb) PHYSICAL EXAMINATION:General appearance: Well appearing, alert, in no acute distress, well-hydrated,well nourished.Skin: Skin color, texture, turgor normal, no suspicious rashes or lesionsLungs: Lungs clear to auscultation. No wheezing, rhonchi, ralesHeart: RRR without murmur, gallop, or rubs. No ectopyAbdomen: Normal abdominal exam, Abdomen soft, non-tender. Bowel sounds normal.No masses, organomegalyExtremities: No deformities, edema, skin discoloration, clubbing or cyanosis.Good capillary refill.Small callus vs early plantars wart on right foot.ASSESSMENT/ PLAN:1. RLS (restless legs syndrome) - ICD9: 333.94, ICD10: G25.81 (primarydiagnosis)- slightly worse. Check labs that were previously ordered.- BASIC METABOLIC PNL2. Other vitamin B12 deficiency anemia - ICD9: 281.1, ICD10: D51.8-continue.- CYANOCOBALAMIN (VIT B-12) 1,000 MCG/ML INJECTION SOLUTION3. History of gastric bypass - ICD9: V45.86, ICD10: Z98.890- CYANOCOBALAMIN (VIT B-12) 1, 000 MCG/ML INJECTION SOLUTION4. Iron deficiency - ICD9: 280.9, ICD10: E61.1- check labs.5. Plantar wart - ICD9: 078.12, ICD10: B07.0- try compound w treatments. Call if not better in a month and consider cryo.SHERRI Ashley in six months and prn.Referring Provider: SELF [200]Allergies As of Date: 02/18/2017 Noted Allergy ReactionADHESIVE TAPE (ROSINS) 08/14/2013 2 - RashLATEX 07/09/2007 2 - RashDate Reviewed: 02/18/2017Reviewed by: Isabel Rodriges LPN - Fully AssessedReason for Visit: Recheck [92] Pain (foot) [760] Cmt: bottom of left foot 2 months tried OTC wart treatmentReason For Visit History RecordedPrimary Visit Diagnosis:RLS (restless legs syndrome) [G25.81] Other Visit Diagnoses:Other vitamin B12 deficiency anemia [ D51.8] History of gastric bypass [Z98.890] Iron deficiency [E61.1] Plantar wart [B07.0]Order(s):cyanocobalamin (VITAMIN B-12) 1,000 mcg/mL solnInject 1 mL intramuscularly once every month. 1 DOSE MONTHLYDisp: 1 mLRfl: 11 BASIC METABOLIC PNL [SQBMP] Order #: [id number] FUTUREPrescriptions as of 02/18/2017 Sig : CYANOCOBALAMIN (VIT B-12) 1,0* Inject 1 mL intramuscularly o* BUPROPION XL 300 MG 24 HR TAB Take 1 tablet by mouth once d* GABAPENTIN 300 MG CAPSULE Take 3 capsules by mouth madina* ETONOGESTREL-ETHINYL ESTRADIO* Use 1 Each vaginally as direc*Problem List As Of Date 02/18/2017 Noted Resolved ADJUSTMENT REACTION NOS [F43.20] INVALID FOR*07/14/2007 Seborrheic dermatitis, unspecified [L21.9] INVALID FOR* Attention deficit disorder [F98.8] INVALID FOR*08/29/2016 More... Adjustment disorder with depressed mood [F43.21]INVALID FOR*08/29/2016 Tobacco use disorder [F17.200] INVALID FOR*09/13/2015 More... [facility]*INVALID FOR*09/13/2015 Class: Chronic More... Routine gynecological examination [Z01.419] INVALID FOR*09/13/2015 Class: Chronic More... Morbid obesity (HCC) [ E66.01] INVALID FOR*09/13/2015 Insomnia [G47.00] INVALID FOR*09/13/2015 Thrombosed external hemorrhoid [K64.5] INVALID FOR*09/13/2015 Recurrent UTI (urinary tract infection) complic*INVALID FOR*08/29/2016 More... Kidney stones [N20.0] INVALID FOR*09/13/2015 Marijuana abuse [F12.10] INVALID FOR*08/29/2016 History of gastric bypass [Z98.890] INVALID FOR* History of delivery, currently pregnan*INVALID FOR*05/07/2016 More... History of recurrent UTI ( urinary tract infecti*INVALID FOR* More... History of herpes genitalis [Z86.19] INVALID FOR* More... History of depression [Z86.59] INVALID FOR* More... Tobacco use in [O99.330] INVALID FOR*08/29/2016 More... History of marijuana use [Z87.898] INVALID FOR* More... H/O macrosomia in in prior , cu*INVALID FOR*08/29/2016 More... Patient requested diagnostic testing [ Z01.89] INVALID FOR*11/21/2015 More... History of kidney stones [Z87.442] INVALID FOR*09/13/2015 Trichomonal vaginitis during in secon*INVALID FOR*08/29/2016 More... Urgency of urination [R39.15] INVALID FOR*08/29/2016 Frequency of micturition [R35.0] INVALID FOR*08/29/2016 UTI (urinary tract infection) in , ant *INVALID FOR*02/16/2016 RLS (restless legs syndrome) [G25.81] INVALID FOR* Iron deficiency [E61.1] INVALID FOR* Anemia due to vitamin B12 deficiency [D51.9] INVALID FOR*Visit Notes:>> Isabel Rodriges LPN Mon Feb 18, 2017 8:40 AM Status: SignedBottom of left foot with painful area for about 2 months. Thought wasmaybe a plantars wart so tried OTC treatment twice and no change. Not sureif maybe just area of dry skin.Prescriptions ordered this encounter Disp Refills Start End CYANOCOBALAMIN (VIT B -12) 1,000 MCG/* 1 mL 11 02/18/2017 02/18/2018 Class: In Office Route: INTRAMUSCULA Sig: Inject 1 mL intramuscularly once every month. 1 DOSE MONTHLYMedications Discontinued During This Encounter cyanocobalamin (VITAMIN B-12) 1,000 * 1 mL 11 11/05/2016 02/18/2017 Class: In Office Route: INTRAMUSCULAR Sig: Inject 1 mL intramuscularly once every month. 1 DOSE MONTHLY Disc: Reason for discontinue is not on file. cyanocobalamin (VITAMIN B-12) 1,000 * 1 mL 11 08/29/2016 02/18/2017 Class: Back Office Route: INTRAMUSCULAR Sig: Inject 1 mL intramuscularly once every month. 1 DOSE MONTHLY Disc: Reason for discontinue is not on file. Ferrous Gluconate 324 mg (36 mg iron* 60 t* 5 06/01/2016 02/18/2017 Route: ORAL Sig: Take 1 tablet by mouth twice daily with meals. Patient not taking: Reported on 02/18/2017 Disc: Reason for discontinue is not on file. cyanocobalamin (VITAMIN B-12) 1, 000 * 1 mL 11 05/31/2016 02/18/2017 Class: In Office Route: INTRAMUSCULAR Sig: Inject 1 mL intramuscularly once every month. 1 DOSE MONTHLY Disc: Reason for discontinue is not on file.Disposition: Return in about 6 months (around 08/18/2017).Follow-up and Disposition History RecordedEncounter Number: [id number] Status:Closed by PAUL CHEEMA MD on 02/18/17 CNOV Observed: 12/26/2016 Status: COMPLETED Source: [place] 3:20 PM [facility] REPOSITORY Office Visit (FAMPWS) ---------CITLALI BECKWITH ([id number]) 1985 [facility] Time Provider Department12/26/16 3:20 PM PAUL CHEEMAWS During your visit today, we recorded the following information about you: Pulse Respiration Blood pressure Weight 98/minute 16/minute 120/82 88.9 kgPaul Cheema MD 12/26/2016 5:24 PM SignedPatient presents with:Medication Follow- upHPI: Patient presents today for office visit. Does feel like meds are helping.Less smoking.Increased to 300 mg on her own last week. Sleeping well. No suicidal ideation.Increased stress. Will be seeing psych in JanuaryMEDICATIONS:Current Outpatient Prescriptions:buPROPion XL (WELLBUTRIN XL) 300 mg 24 hr tablet Take 1 tablet by mouth oncedaily.gabapentin (NEURONTIN) 300 mg capsule Take 3 capsules by mouth daily atbedtime.Etonogestrel-Ethinyl Estradiol (NUVARING) 0.12-0.015 mg/ 24 hr vaginal ring Use1 Each vaginally as directed. use one ring for 3-4 weeks, remove for 4-7 daysand repeatcyanocobalamin (VITAMIN B-12) 1,000 mcg/mL soln Inject 1 mL intramuscularlyonce every month. 1 DOSE MONTHLYcyanocobalamin (VITAMIN B-12) 1,000 mcg/mL soln Inject 1 mL intramuscularlyonce every month. 1 DOSE MONTHLYFerrous Gluconate 324 mg (36 mg iron) tab Take 1 tablet by mouth twice dailywith meals.cyanocobalamin (VITAMIN B-12) 1,000 mcg/mL soln Inject 1 mL intramuscularlyonce every month. 1 DOSE MONTHLYNo current facility-administered medications for this visit.ALLERGIES:ALLERGIESAllergen Reactions- Adhesive Tape (Maite* Rash- Latex Rash- Wellbutrin [Bupropi* Other: See Comments Seizure-was on overdose. Has taken it since then and done fine.PAST MEDICAL HISTORYDiagnosis Date- Anemia- Chlamydia 2004,2008,2013 x3- Herpes simplex virus (HSV) infection- Hypoglycemia 08/12/13- Kidney stone- Marijuana use- Mental disorder- RLS (restless legs syndrome) Amezquita- Seizure Overdose of Wellbutrin- Thrombosed hemorrhoids 2014PAST SURGICAL HISTORYProcedure Laterality Date- DELIVERY ONLY , low cervical- DELIVERY ONLY N/A 04/23/2016- GASTRIC BYPASS HX 04/2011- PAST SURGICAL HISTORY OF kidney stoneFAMILY HISTORYProblem Relation Age of Onset- Alcohol/Drug Father- Hypertension Maternal Grandfather CHF- Heart Maternal Grandfather [place]- Cancer Paternal Grandmother throat cancer- Stroke Paternal Grandmother Social History Marital status: Spouse name: Years of education: 12 Number of children: 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 No BMI32.62 kg/m2PE:General:awake and alert today. Speech appropriate. orientedNeck:supple. No thyromegaly or masses.Lungs: breathing comfortably. No accessory muscle use. No rales or rhonchiHeart: RRR, s1 and s2 are normal. No new murmur noted.Abdomen: soft, nondistended, normal bowel sounds. No masses, guarding or reboundExtremities: no new edema on exam.PSYCH:Affect normal. Normal speech. Normal eye contactASSESSMENT/PLAN:1. Depression, unspecified depression type - ICD9: 311, ICD10: F32.9- call if any issues. Stay on higher dose.- BUPROPION XL 300 MG 24 HR TABWilliaJeanne Ravi Ma 2016 3:45 PM SignedThe patient is here for an injection of Vitamin B12 (Cyanocobalamin).Dose : 1 mlAmount wasted: none.Route: IntramuscularSite: left deltoidManufacturer: Haload.Lot #: [id number] Date: nov 2017The date due for the next injection is one monthNicolasa Cespedes MaReferring Provider: SELF [200]Allergies As of Date: 12/26/2016 Noted Allergy ReactionADHESIVE TAPE (ROSINS) 08/14/2013 2 - RashLATEX 07/09/2007 2 - RashDate Reviewed: 12/26/2016Reviewed by: Nicolasa Cespedes Ma - Fully AssessedReason for Visit: Medication Follow-up [270]Primary Visit Diagnosis: Other vitamin B12 deficiency anemia [D51.8] Other Visit Diagnosis:Depression, unspecified depression type [F32.9]Order(s):buPROPion XL (WELLBUTRIN XL) 300 mg 24 hr tabletTake 1 tablet by mouth once daily.Disp: 30 tabletRfl: 5 cyanocobalamin (VITAMIN B-12) 1,000 mcg/mL solnInject 1 mL intramuscularly one time only for 1 dose.Disp: 1 mLRfl: 0Prescriptions as of 12/26/2016 Sig: BUPROPION XL 300 MG 24 HR TAB Take 1 tablet by mouth once d* GABAPENTIN 300 MG CAPSULE Take 3 capsules by mouth madina* ETONOGESTREL-ETHINYL ESTRADIO* Use 1 Each vaginally as direc* CYANOCOBALAMIN (VIT B-12) 1,0* Inject 1 mL intramuscularly o* CYANOCOBALAMIN (VIT B-12) 1,0* Inject 1 mL intramuscularly o* CYANOCOBALAMIN (VIT B-12) 1,0* Inject 1 mL intramuscularly o* FERROUS GLUCONATE 324 MG (36 * Take 1 tablet by mouth twice * CYANOCOBALAMIN (VIT B-12) 1,0* Inject 1 mL intramuscularly o*Problem List As Of Date 12/26/2016 Noted Resolved ADJUSTMENT REACTION NOS [F43.20] INVALID FOR*07/14/2007 Seborrheic dermatitis, unspecified [L21.9] INVALID FOR*08/29/2016 Attention deficit disorder [ F98.8] INVALID FOR*08/29/2016 More... Adjustment disorder with depressed mood [ F43.21]INVALID FOR*08/29/2016 Tobacco use disorder [F17.200] INVALID FOR* More... Routine general medical examination at [facility]*INVALID FOR*09/13/2015 Class: Chronic More... Routine gynecological examination [Z01.419] INVALID FOR*2015 Class: Chronic More... Morbid obesity (HCC) [E66.01] INVALID FOR*2015 Insomnia [G47.00] INVALID FOR*09/13/2015 Thrombosed external hemorrhoid [K64.5] INVALID FOR*09/13/2015 Recurrent UTI (urinary tract infection ) complic*INVALID FOR*08/29/2016 More... Kidney stones [N20.0] INVALID FOR*09/13/2015 Marijuana abuse [F12.10] INVALID FOR*08/29/2016 History of gastric bypass [Z98.890] INVALID FOR* History of delivery, currently pregnan*INVALID FOR*05/07/2016 More... History of recurrent UTI (urinary tract infecti* INVALID FOR* More... History of herpes genitalis [Z86.19] INVALID FOR* More... History of depression [Z86.59] INVALID FOR* More... Tobacco use in [ O99.330] INVALID FOR*08/29/2016 More... History of marijuana use [Z87.898] INVALID FOR* More... H/O macrosomia in in prior , cu*INVALID FOR*2016 More... Patient requested diagnostic testing [Z01.89] INVALID FOR*11/21/2015 More... History of kidney stones [Z87.442] INVALID FOR*09/13/2015 Trichomonal vaginitis during in secon*INVALID FOR*08/29/2016 More... Urgency of urination [R39.15] INVALID FOR*08/29/2016 Frequency of micturition [R35.0] INVALID FOR* UTI (urinary tract infection) in , ant*INVALID FOR*02/16/2016 RLS (restless legs syndrome) [G25.81] INVALID FOR* Iron deficiency [E61.1] INVALID FOR * Anemia due to vitamin B12 deficiency [D51.9] INVALID FOR*Visit Notes:>> Nicolasa Erica Cespedes Ma SatDec 26, 2016 3:45 PM Status: SignedThe patient is here for an injection of Vitamin B12 (Cyanocobalamin).Dose: 1 mlAmount wasted: none.Route: IntramuscularSite: left deltoidManufacturer: Haload.Lot #: [id number] Date: nov 2017The date due for the next injection is one monthVilevon Cespedes MaPrescriptions ordered this encounter Disp Refills Start End BUPROPION XL 300 MG 24 HR TAB 30 t* 5 2016 Route: ORAL Sig: Take 1 tablet by mouth once daily. CYANOCOBALAMIN (VIT B-12) 1,000 MCG/* 1 mL 0 12/26/2016 12/26/2016 Class: Back Office Route: INTRAMUSCULA Sig: Inject 1 mL intramuscularly one time only for 1 dose.Medications Discontinued During This Encounter buPROPion XL ( WELLBUTRIN XL) 150 mg * 30 t* 5 11/05/2016 12/26/2016 Route: ORAL Sig: Take 1 tablet by mouth once daily. Disc: Reason for discontinue is not on file.Disposition: Return in about 6 weeks (around 02/06/2017).Follow-up and Disposition History RecordedEncounter Number: [id number] Status:Closed by APUL CHEEMA MD on 12/26/16 PROGRESS Observed: 12/26/2016 Status: COMPLETED Source: [place] 3:16 PM [facility] [place] REPOSITORY HNO ID: [id number]: Paul Carbajal: (none) Author Type: PhysicianType: Progress NotesFiled: 12/26/2016 5:24 PMNote Text:Patient presents with:Medication Follow-upHPI: Patient presents today for office visit. Does feel like meds arehelping. Less smoking.Increased to 300 mg on her own last week. Sleeping well. No suicidalideation.Increased stress. Will be seeing psych in JanuaryMEDICATIONS:Current Outpatient Prescriptions:buPROPion XL (WELLBUTRIN XL) 300 mg 24 hr tablet Take 1 tablet by mouthonce daily.gabapentin (NEURONTIN) 300 mg capsule Take 3 capsules by mouth daily atbedtime.Etonogestrel-Ethinyl Estradiol (NUVARING) 0.12-0.015 mg/24 hr vaginal ringUse 1 Each vaginally as directed. use one ring for 3-4 weeks, remove for4-7 days and repeatcyanocobalamin (VITAMIN B-12) 1,000 mcg/mL soln Inject 1 mLintramuscularly once every month. 1 DOSE MONTHLYcyanocobalamin (VITAMIN B-12) 1,000 mcg/mL soln Inject 1 mLintramuscularly once every month. 1 DOSE MONTHLYFerrous Gluconate 324 mg (36 mg iron) tab Take 1 tablet by mouth twicedaily with meals.cyanocobalamin (VITAMIN B-12) 1,000 mcg/mL soln Inject 1 mLintramuscularly once every month. 1 DOSE MONTHLYNo current facility-administered medications for this visit.ALLERGIES:ALLERGIESAllergen Reactions- Adhesive Tape (Maite* Rash- Latex Rash- Wellbutrin [Bupropi* Other: See Comments Seizure-was on overdose. Has taken it since then and done fine.PAST MEDICAL HISTORYDiagnosis Date- Anemia- Chlamydia 2003,2008,2013 x3- Herpes simplex virus (HSV) infection- Hypoglycemia 08/12/13- Kidney stone- Marijuana use- Mental disorder- RLS (restless legs syndrome) - Seizure Overdose of Wellbutrin- Thrombosed hemorrhoids 2013PA SURGICAL HISTORYProcedure Laterality Date- DELIVERY ONLY , low cervical- DELIVERY ONLY N/A 04/23/2016- GASTRIC BYPASS HX 04/2011- PAST SURGICAL HISTORY OF kidney stoneFAMILY HISTORYProblem Relation Age of Onset- Alcohol/ Drug Father- Hypertension Maternal Grandfather CHF- Heart Maternal Grandfather [place]- Cancer Paternal Grandmother throat cancer- Stroke Paternal Grandmother Social History Marital status: Spouse name: Years of education: 12 Number of children: 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 No BMI 32.62 kg/m2PE:General:awake and alert today. Speech appropriate. orientedNeck:supple. No thyromegaly or masses.Lungs: breathing comfortably. No accessory muscle use. No rales or rhonchiHeart: RRR, s1 and s2 are normal. No new murmur noted.Abdomen: soft, nondistended, normal bowel sounds. No masses, guarding orreboundExtremities: no new edema on exam.PSYCH:Affect normal. Normal speech. Normal eye contactASSESSMENT/PLAN:1. Depression, unspecified depression type - ICD9: 311, ICD10: F32.9- call if any issues. Stay on higher dose.- BUPROPION XL 300 MG 24 HR Belen Cheema MD OBSOLETE Observed: 12/20/2016 Status: COMPLETED Source: [place] 12:00 AM [facility] REPOSITORY Refill (FAMPWS) ---------[facility]ECK[facility] ([id number]) 1985 [facility] Department12[facility]20/16 Minnie SELBY ([facility]) [facility] During your visit today, we recorded the following information about you:Sveta Enrique, StanislavD 12/20/2016 3: 58 PM SignedPharmacist Refill Authorization ReviewName: Citlali BeckwithMRN: [id number]: 12/20/2016Time: 3:58 PMRefill authorization request(s) received via pharmacy request and reviewedunder effective consult agreement. Upon review, did confirm that an activepatient-provider relationship exists and that the prescriber is a participatingphysician under the consult agreement.The medication(s) fall under the following categories:Category 1: 1 corresponding medication(s) qualifies for renewal due to up todate labs and provider visits.Additional actions taken: Prescription(s ) issued.Sveta Enrique, PharmDPharmacy Managed Authorization [place] Current Outpatient Prescriptions:gabapentin (NEURONTIN) 300 mg capsule Take 3 capsules by mouth daily atbedtime.cyanocobalamin (VITAMIN B-12) 1,000 mcg/mL soln Inject 1 mL intramuscularlyonce every month. 1 DOSE MONTHLYbuPROPion XL (WELLBUTRIN XL) 150 mg 24 hr tablet Take 1 tablet by mouth oncedaily.cyanocobalamin (VITAMIN B-12) 1,000 mcg/mL soln Inject 1 mL intramuscularlyonce every month. 1 DOSE MONTHLYFerrous Gluconate 324 mg (36 mg iron) tab Take 1 tablet by mouth twice dailywith meals.cyanocobalamin (VITAMIN B-12) 1,000 mcg/mL soln Inject 1 mL intramuscularlyonce every month. 1 DOSE MONTHLYEtonogestrel-Ethinyl Estradiol (NUVARING) 0.12- 0.015 mg/24 hr vaginal ring Use1 Each vaginally as directed. use one ring for 3-4 weeks, remove for 4- 7 daysand repeatNo current facility-administered medications for this visit.Allergies As of Date: 12/20/2016 Noted Allergy ReactionADHESIVE TAPE (ROSINS) 08/14/2013 2 - RashLATEX 07/09/2007 2 - RashWELLBUTRIN (BUPROPION HCL) 11/28/2006 14 - Other: See Comments Comments: Seizure-was on overdose. Has taken it since then and done fine.Date Reviewed: 11/05/2016Reviewed by: Yvonne Sanchez [facility] - Fully AssessedReason for Visit: Refill Request [94]Order(s):gabapentin (NEURONTIN) 300 mg capsuleTake 3 capsules by mouth daily at bedtime.Disp: 270 capsuleRfl: 1Prescriptions as of 12/20/2016 Sig: GABAPENTIN 300 MG CAPSULE Take 3 capsules by mouth madina* CYANOCOBALAMIN (VIT B-12) 1,0* Inject 1 mL intramuscularly o* BUPROPION XL 150 MG TAB Take 1 tablet by mouth once d* CYANOCOBALAMIN (VIT B-12) 1,0* Inject 1 mL intramuscularly o* FERROUS GLUCONATE 324 MG (36 * Take 1 tablet by mouth twice * CYANOCOBALAMIN (VIT B-12) 1,0* Inject 1 mL intramuscularly o* ETONOGESTREL-ETHINYL ESTRADIO* Use 1 Each vaginally as direc*Problem List As Of Date 12/20/2016 Noted Resolved ADJUSTMENT REACTION NOS [F43.20] INVALID FOR*2007 Seborrheic dermatitis, unspecified [L21.9] INVALID FOR*08/29/2016 Attention deficit disorder [F98.8] INVALID FOR*08/29/2016 More... Adjustment disorder with depressed mood [F43.21]INVALID FOR*08/29/2016 Tobacco use disorder [F17.200] INVALID FOR* More... Routine general medical examination at [facility]*INVALID FOR*09/13/2015 Class: Chronic More... Routine gynecological examination [Z01.419] INVALID FOR*2015 Class: Chronic More... Morbid obesity (HCC) [E66.01] INVALID FOR*2015 Insomnia [G47.00] INVALID FOR*09/13/2015 Thrombosed external hemorrhoid [K64.5] INVALID FOR*09/13/2015 Recurrent UTI (urinary tract infection ) complic*INVALID FOR*08/29/2016 More... Kidney stones [N20.0] INVALID FOR*09/13/2015 Marijuana abuse [F12.10] INVALID FOR*08/29/2016 History of gastric bypass [Z98.890] INVALID FOR* History of delivery, currently pregnan*INVALID FOR*05/07/2016 More... History of recurrent UTI (urinary tract infecti* INVALID FOR* More... History of herpes genitalis [Z86.19] INVALID FOR* More... History of depression [Z86.59] INVALID FOR* More... Tobacco use in [ O99.330] INVALID FOR*08/29/2016 More... History of marijuana use [Z87.898] INVALID FOR* More... H/O macrosomia in infant in prior , cu*INVALID FOR*2016 More... Patient requested diagnostic testing [Z01.89] INVALID FOR*11/21/2015 More... History of kidney stones [Z87.442] INVALID FOR*09/13/2015 Trichomonal vaginitis during in secon*INVALID FOR*08/29/2016 More... Urgency of urination [R39.15] INVALID FOR*08/29/2016 Frequency of micturition [R35.0] INVALID FOR* UTI (urinary tract infection) in , ant*INVALID FOR*02/16/2016 RLS (restless legs syndrome) [G25.81] INVALID FOR* Iron deficiency [E61.1] INVALID FOR * Anemia due to vitamin B12 deficiency [D51.9] INVALID FOR*Prescriptions ordered this encounter Disp Refills Start End GABAPENTIN 300 MG CAPSULE 270 * 1 2016 Route: ORAL Sig: Take 3 capsules by mouth daily at bedtime.Medications Discontinued During This Encounter gabapentin (NEURONTIN) 300 mg capsule 90 c* 2 08/29/2016 12/20/2016 Route: ORAL Sig: Take 3 capsules by mouth daily at bedtime. Disc: Reason for discontinue is not on file. Status:Closed by IFRAH (PHARMACIST)SVETA on 12/20/16 PROGRESS Observed: 11/05/2016 Status: COMPLETED Source: [place] 2:27 PM [facility] REPOSITORY O ID: [id number]: Paul Carbajal: (none) Author Type: PhysicianType: Progress NotesFiled: 11/05/2016 6:34 PMNote Text:Patient presents with:B-12 InjectionHPI: Patient presents today for office visit.Patient presents today for a vitamin b12 injection. Overall doing well.Having increased depression. No suicidal ideation. Was on wellbutrinbefore. Had a seizure on wellbutrin with an overdose as a teenager. Hastaken it since and done well.Not breast feeding.MEDICATIONS:Current Outpatient Prescriptions:cyanocobalamin (VITAMIN B- 12) 1,000 mcg/mL soln Inject 1 mLintramuscularly once every month. 1 DOSE MONTHLYgabapentin (NEURONTIN) 300 mg capsule Take 3 capsules by mouth daily atbedtime.Ferrous Gluconate 324 mg (36 mg iron) tab Take 1 tablet by mouth twicedaily with meals.cyanocobalamin (VITAMIN B-12) 1,000 mcg/mL soln Inject 1 mLintramuscularly once every month. 1 DOSE MONTHLYEtonogestrel-Ethinyl Estradiol (NUVARING) 0.12- 0.015 mg/24 hr vaginal ringUse 1 Each vaginally as directed. use one ring for 3-4 weeks, remove for4-7 days and repeatNo current facility-administered medications for this visit.ALLERGIES:ALLERGIESAllergen Reactions- Adhesive Tape (Maite* Rash- Latex Rash- Wellbutrin [Bupropi* SeizurePAST MEDICAL HISTORYDiagnosis Date- Anemia- Chlamydia 2003,2008,2013 x3- Herpes simplex virus (HSV) infection- Hypoglycemia 08/12/13- Kidney stone- Marijuana use- Mental disorder- RLS (restless legs syndrome) Amezquita- Seizure Overdose of Wellbutrin- Thrombosed hemorrhoids 2013 PAST SURGICAL HISTORYNo date: DELIVERY ONLY Comment: , low [id number]: DELIVERY ONLY N/: GASTRIC BYPASS HXNo date: PAST SURGICAL HISTORY OF Comment: kidney stoneFAMILY HISTORY Alcohol/Drug Father Hypertension Maternal Grandfather Comment: CHF Heart Maternal Grandfather Comment: [place] Cancer Paternal Grandmother Comment: throat cancer Stroke Paternal Grandmother Social History Marital status: Spouse name: Years of education: 12 Number of children: 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 Speech appropriate. orientedPSYCH:Affect normal. Normal speech. Normal eye contactLungs: breathing comfortably. No accessory muscle use. No rales or rhonchiHeart: RRR, s1 and s2 are normal. No new murmur noted.Abdomen: soft, nondistended, normal bowel sounds. No masses, guarding orreboundExtremities: no new edema on exam.ASSESSMENT/PLAN:1. Other vitamin B12 deficiency anemia - ICD9: 281.1, ICD10: D51.8(primary diagnosis)- continue to follow progress.2. Depression, unspecified depression type - ICD9: 311, ICD10: F32.9- Discussed risks and benefits of new medication with the patient. Advisedthem to call if any side effects or questions.- follow up in one month or prn- BUPROPION XL 150 MG TAB3. Tobacco use - ICD9: 305.1, ICD10: Z72.0- Cessation encouraged.- Physiologic and physical aspects of tobacco addiction as well asstrategies for quitting were discussed.- Counseling was given focusing on the harmful effects of this addictionespecially given the patient's medical condition(s) which will be worsenedbecause of the chemicals in tobacco.Paul Cheema MDThe documentation for this note was completed byYvonne Sanchez Cma acting as scribe for Paul Cheema MD. October 2:27 PM. CNOV Observed: 11/05/2016 Status: COMPLETED Source: [place] 2:20 PM [facility] REPOSITORY Office Visit (FAMPWS) ---------CITLALI BECKWITH ([id number]) 1985 [facility] Time Provider Department11/05/16 2:20 PM PAUL CHEEMA During your visit today, we recorded the following information about you: Pulse Respiration Blood pressure Weight 72/minute 12/minute 132/66 88.2 kgWimickie Cheema MD 11/05/2016 6:34 PM SignedPatient presents with:B-12 InjectionHPI: Patient presents today for office visit.Patient presents today for a vitamin b12 injection. Overall doing well.Having increased depression. No suicidal ideation. Was on wellbutrin before.Had a ANDquot;seizureANDquot; on wellbutrin with an overdose as a teenager. Hastaken it since and done well.Not breast feeding.MEDICATIONS:Current Outpatient Prescriptions:cyanocobalamin (VITAMIN B- 12) 1,000 mcg/mL soln Inject 1 mL intramuscularlyonce every month. 1 DOSE MONTHLYgabapentin ( NEURONTIN) 300 mg capsule Take 3 capsules by mouth daily atbedtime.Ferrous Gluconate 324 mg (36 mg iron) tab Take 1 tablet by mouth twice dailywith meals.cyanocobalamin (VITAMIN B-12) 1,000 mcg/mL soln Inject 1 mL intramuscularlyonce every month. 1 DOSE MONTHLYEtonogestrel-Ethinyl Estradiol ( NUVARING) 0.12-0.015 mg/24 hr vaginal ring Use1 Each vaginally as directed. use one ring for 3-4 weeks, remove for 4-7 daysand repeatNo current facility-administered medications for this visit.ALLERGIES:ALLERGIESAllergen Reactions- Adhesive Tape (Maite* Rash- Latex Rash- Wellbutrin [Bupropi* SeizurePAST MEDICAL HISTORYDiagnosis Date- Anemia- Chlamydia 2003,2008,2013 x3- Herpes simplex virus (HSV) infection- Hypoglycemia 08/12/13- Kidney stone- Marijuana use- Mental disorder- RLS (restless legs syndrome) Amezquita- Seizure Overdose of Wellbutrin- Thrombosed hemorrhoids 2013 PAST SURGICAL HISTORYNo date: DELIVERY ONLY Comment: , low kppasypl97/23/2017: DELIVERY ONLY N/A1: GASTRIC BYPASS HXNo date : PAST SURGICAL HISTORY OF Comment: kidney stoneFAMILY HISTORY Alcohol/Drug Father Hypertension Maternal Grandfather Comment: CHF Heart Maternal Grandfather Comment: [place] Cancer Paternal Grandmother Comment: throat cancer Stroke Paternal Grandmother Social History Marital status: Spouse name: Years of education: 12 Number of children: 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 Speech appropriate. orientedPSYCH: Affect normal. Normal speech. Normal eye contactLungs: breathing comfortably. No accessory muscle use. No rales or rhonchiHeart: RRR, s1 and s2 are normal. No new murmur noted.Abdomen: soft, nondistended, normal bowel sounds. No masses, guarding or reboundExtremities: no new edema on exam.ASSESSMENT/PLAN:1. Other vitamin B12 deficiency anemia - ICD9: 281.1, ICD10: D51.8 ( primarydiagnosis)- continue to follow progress.2. Depression, unspecified depression type - ICD9: 311, ICD10: F32.9- Discussed risks and benefits of new medication with the patient. Advised themto call if any side effects or questions.- follow up in one month or prn- BUPROPION XL 150 MG TAB3. Tobacco use - ICD9: 305.1, ICD10: Z72.0- Cessation encouraged.- Physiologic and physical aspects of tobacco addiction as well as strategiesfor quitting were discussed.- Counseling was given focusing on the harmful effects of this addictionespecially given the patient's medical condition(s) which will be worsenedbecause of the chemicals in tobacco.Paul Cheema MDThe documentation for this note was completed by Chrissy Richards acting as scribe for Paul Cheema MD. November 05, 2016 2: 27 PM.Referring Provider: SELF [200]Allergies As of Date: 11/05/2016 Noted Allergy ReactionADHESIVE TAPE (ROSINS) 08/14/2013 2 - RashLATEX 07/08 2 - RashWELLBUTRIN (BUPROPION HCL) 11/28/2006 14 - Other: See Comments Comments: Seizure-was on overdose. Has taken it since then and done fine.Date Reviewed: 11/05/2016Reviewed by: Yvonne Sanchez Cma - Fully AssessedReason for Visit: B-12 Injection [247] Primary Visit Diagnosis:Other vitamin B12 deficiency anemia [D51.8] Other Visit Diagnoses: Depression, unspecified depression type [F32.9] Tobacco use [Z72.0]Order(s): cyanocobalamin (VITAMIN B-12) 1,000 mcg/mL solnInject 1 mL intramuscularly once every month. 1 DOSE MONTHLYDisp: 1 mLRfl: 11 buPROPion XL (WELLBUTRIN XL) 150 mg 24 hr tabletTake 1 tablet by mouth once daily.Disp: 30 tabletRfl: 5Prescriptions as of 11/05/2016 Sig: CYANOCOBALAMIN (VIT B-12) 1,0* Inject 1 mL intramuscularly o* GABAPENTIN 300 MG CAPSULE Take 3 capsules by mouth madina* FERROUS GLUCONATE 324 MG (36 * Take 1 tablet by mouth twice * CYANOCOBALAMIN (VIT B-12) 1,0* Inject 1 mL intramuscularly o* ETONOGESTREL-ETHINYL ESTRADIO* Use 1 Each vaginally as direc* CYANOCOBALAMIN (VIT B-12) 1,0* Inject 1 mL intramuscularly o* BUPROPION XL 150 MG TAB Take 1 tablet by mouth once d*Problem List As Of Date 11/05/2016 Noted Resolved ADJUSTMENT REACTION NOS [F43.20] INVALID FOR*2007 Seborrheic dermatitis, unspecified [L21.9] INVALID FOR*08/29/2016 Attention deficit disorder [F98.8] INVALID FOR*08/29/2016 More... Adjustment disorder with depressed mood [F43.21]INVALID FOR*08/29/2016 Tobacco use disorder [F17.200] INVALID FOR* More... [facility]*INVALID FOR*09/13/2015 Class: Chronic More... Routine gynecological examination [Z01.419] INVALID FOR*2015 Class: Chronic More... Morbid obesity (HCC) [E66.01] INVALID FOR*2015 Insomnia [G47.00] INVALID FOR*09/13/2015 Thrombosed external hemorrhoid [K64.5] INVALID FOR*09/13/2015 Recurrent UTI (urinary tract infection ) complic*INVALID FOR*08/29/2016 More... Kidney stones [N20.0] INVALID FOR*09/13/2015 Marijuana abuse [F12.10] INVALID FOR*08/29/2016 History of gastric bypass [Z98.890] INVALID FOR* History of delivery, currently pregnan*INVALID FOR*05/07/2016 More... History of recurrent UTI (urinary tract infecti* INVALID FOR* More... History of herpes genitalis [Z86.19] INVALID FOR* More... History of depression [Z86.59] INVALID FOR* More... Tobacco use in [ O99.330] INVALID FOR*08/29/2016 More... History of marijuana use [Z87.898] INVALID FOR* More... H/O macrosomia in infant in prior , cu*INVALID FOR*2016 More... Patient requested diagnostic testing [Z01.89] INVALID FOR*11/21/2015 More... History of kidney stones [Z87.442] INVALID FOR*09/13/2015 Trichomonal vaginitis during in secon*INVALID FOR*08/29/2016 More... Urgency of urination [R39.15] INVALID FOR*08/29/2016 Frequency of micturition [R35.0] INVALID FOR* UTI (urinary tract infection) in , ant*INVALID FOR*02/16/2016 RLS (restless legs syndrome) [G25.81] INVALID FOR* Iron deficiency [E61.1] INVALID FOR * Anemia due to vitamin B12 deficiency [D51.9] INVALID FOR*Prescriptions ordered this encounter Disp Refills Start End CYANOCOBALAMIN (VIT B-12) 1,000 MCG/* 1 mL 11 201611/05/2017 Class: In Office Route: INTRAMUSCULA Sig: Inject 1 mL intramuscularly once every month. 1 DOSE MONTHLY BUPROPION XL 150 MG TAB 30 t* 5 11/05/2016 Route: ORAL Sig: Take 1 tablet by mouth once daily.Disposition: Return in about 4 weeks (around ).Follow-up and Disposition History RecordedEncounter Number: [id number] Status: Closed by PAUL CHEEMA MD on 11/05/16 PROGRESS Observed: 08/29/2016 Status: COMPLETED Source: [place] 3:41 PM [facility] REPOSITORY HNO ID: [id number]: Paul Carbajal: (none) Author Type: PhysicianType: Progress NotesFiled: 08/29/2016 4:40 PMNote Text:Patient presents with:B-12 InjectionRefill Request: gabapentinHPI: Patient presents today for office visit.RLS is doing well. Using three gabapentin at hs. No side effects. Overallfeels is working well.Still on iron and b12. Energy level is fair. Still occasional labs. Has ahx of gastric bypass. No gi issues.MEDICATIONS:Current Outpatient Prescriptions:gabapentin (NEURONTIN) 300 mg capsule Take 300-900 mg by mouth daily atbedtime.Ferrous Gluconate 324 mg (36 mg iron) tab Take 1 tablet by mouth twicedaily with meals.cyanocobalamin (VITAMIN B-12) 1,000 mcg/mL soln Inject 1 mLintramuscularly once every month. 1 DOSE MONTHLYEtonogestrel-Ethinyl Estradiol (NUVARING) 0.12-0.015 mg/24 hr vaginal ringUse 1 Each vaginally as directed. use one ring for 3-4 weeks, remove for4-7 days and repeatNo current facility- administered medications for this visit.ALLERGIES:ALLERGIESAllergen Reactions- Adhesive Tape (Maite* Rash- Latex Rash- Wellbutrin [Bupropi* SeizurePAST MEDICAL HISTORYDiagnosis Date- Anemia- Chlamydia 2003,2008,2013 x3- Herpes simplex virus (HSV) infection- Hypoglycemia 08/12/13- Kidney stone- Marijuana use- Mental disorder- RLS (restless legs syndrome) Amezquita- Seizure Overdose of Wellbutrin- Thrombosed hemorrhoids 2013 PAST SURGICAL HISTORYNo date: DELIVERY ONLY Comment: , low mnjufzcy51/23/2017: DELIVERY ONLY N/A1: GASTRIC BYPASS HXNo date: PAST SURGICAL HISTORY OF Comment: kidney stoneFAMILY HISTORY Alcohol/Drug Father Hypertension Maternal Grandfather Comment: CHF Heart Maternal Grandfather Comment: [place] Cancer Paternal Grandmother Comment: throat cancer Stroke Paternal Grandmother Social History Marital status: Spouse name: Years of education: 12 Number of children: 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 *Social History Main Topics Smoking status: Current Every Day Smoker Packs/day: 0.50 Years: 13.00 Types: Cigarettes Alcohol use: Yes Comment: social, not while Drug use: No Comment: Hx marijuana use Sexual activity: Yes control/protection: Other Comment: depo provera, mirena removed 09/29/07Reviewed past medical history, surgical history, family history and socialhistory today.REVIEW OF SYSTEMSAll other reviewed and negative other than HPI.HEALTH MAINTENANCE:Reviewed health maintenance issues today.ONE PNEUMOVAX PRIOR TO AGE 64 due on 12/30/2003HPV EVERY 5 YEARS due on 2014VITALS:BP 102/72 Pulse 76 Resp 12 Wt 90.7 kg (200 lb) BMI 33.28 kg/m2PE:General:awake and alert today. Speech appropriate. orientedLungs: breathing comfortably. No accessory muscle use. No rales or rhonchiHeart: RRR, s1 and s2 are normal. No new murmur noted.Abdomen: soft, nondistended, normal bowel sounds. No masses, guarding orreboundExtremities: no new edema on exam.ASSESSMENT/PLAN:1. Other vitamin B12 deficiency anemia - ICD9: 281.1, ICD10: D51.8(primary diagnosis)- continue b12 shots- CYANOCOBALAMIN (VIT B-12) 1,000 MCG/ML INJECTION SOLUTION- CBC + DIFF- VITAMIN B12 BLOOD2. Iron deficiency - ICD9: 280.9, ICD10: E61.1- continue iron- CBC + DIFF - IRON + TIBC3. Tobacco use disorder - ICD9: 305.1, ICD10: F17.200- Cessation encouraged.- Physiologic and physical aspects of tobacco addiction as well asstrategies for quitting were discussed.- Counseling was given focusing on the harmful effects of this addictionespecially given the patient's medical condition(s) which will be worsenedbecause of the chemicals in tobacco.4. History of gastric bypass - ICD9: V45.86, ICD10: Z98.890- continue to follow5. RLS (restless legs syndrome) - ICD9: 333.94, ICD10: G25.81- continue meds- CBC + DIFF- IRON + TIBC- VITAMIN B12 BLOOD- GABAPENTIN 300 MG Deric Cheema MDThe documentation for this note was completed by Isabel Rodriges LPN acting asscribe for Paul Cheema MD. August 29, 2016 3:41 PM. CNOV Observed: 08/29/2016 Status: COMPLETED Source: [place] 3:00 PM [facility] REPOSITORY [facility] ([facility] ---------CITLALI BECKWITH ([id number]) 1985 [facility] Time Provider Department08/29/16 3:00 PM PAUL CHEEMA During your visit today, we recorded the following information about you: Pulse Respiration Blood pressure Weight 76/minute 12/minute 102/72 90.7 kgWilliam Wilmer Cheema MD 08/29/2016 4:40 PM SignedPatient presents with:B-12 InjectionRefill Request: gabapentinHPI: Patient presents today for office visit.RLS is doing well. Using three gabapentin at hs. No side effects. Overall feelsis working well.Still on iron and b12. Energy level is fair. Still occasional labs. Has a hx ofgastric bypass. No gi issues.MEDICATIONS:Current Outpatient Prescriptions:gabapentin (NEURONTIN) 300 mg capsule Take 300-900 mg by mouth daily atbedtime.Ferrous Gluconate 324 mg (36 mg iron) tab Take 1 tablet by mouth twice dailywith meals.cyanocobalamin (VITAMIN B-12) 1,000 mcg/mL soln Inject 1 mL intramuscularlyonce every month. 1 DOSE MONTHLYEtonogestrel-Ethinyl Estradiol (NUVARING) 0.12-0.015 mg/24 hr vaginal ring Use1 Each vaginally as directed. use one ring for 3-4 weeks, remove for 4-7 daysand repeatNo current facility-administered medications for this visit.ALLERGIES:ALLERGIESAllergen Reactions- Adhesive Tape (Maite* Rash- Latex Rash- Wellbutrin [Bupropi* SeizurePAST MEDICAL HISTORYDiagnosis Date- Anemia- Chlamydia 2003,2008,2013 x3- Herpes simplex virus (HSV) infection- Hypoglycemia 08/12/13- Kidney stone- Marijuana use- Mental disorder- RLS ( restless legs syndrome) Amezquita- Seizure Overdose of Wellbutrin- Thrombosed hemorrhoids 2013 PAST SURGICAL HISTORYNo date: DELIVERY ONLY Comment: , low /23/2017: DELIVERY ONLY N/: GASTRIC BYPASS HXNo date: PAST SURGICAL HISTORY OF Comment: kidney stoneFAMILY HISTORY Alcohol/Drug Father Hypertension Maternal Grandfather Comment: CHF Heart Maternal Grandfather Comment: [place] Cancer Paternal Grandmother Comment: throat cancer Stroke Paternal Grandmother Social History Marital status: Spouse name: Years of education: 12 Number of children: 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 *Social History Main Topics Smoking status: Current Every Day Smoker Packs/day: 0.50 Years: 13.00 Types: Cigarettes Alcohol use: Yes Comment: social, not while Drug use: No Comment: Hx marijuana use Sexual activity: Yes control/protection: Other Comment: depo provera, mirena removed Reviewed past medical history, surgical history, family history and socialhistory today.REVIEW OF SYSTEMSAll other reviewed and negative other than HPI.HEALTH MAINTENANCE:Reviewed health maintenance issues today.ONE PNEUMOVAX PRIOR TO AGE 64 due on 12/30/2003HPV EVERY 5 YEARS due on 2014VITALS:BP 102/72 Pulse 76 Resp 12 Wt 90.7 kg (200 lb) BMI 33.28 kg/m2PE:General:awake and alert today. Speech appropriate. orientedLungs: breathing comfortably. No accessory muscle use. No rales or rhonchiHeart: RRR, s1 and s2 are normal. No new murmur noted.Abdomen: soft, nondistended, normal bowel sounds. No masses, guarding or reboundExtremities: no new edema on exam.ASSESSMENT/PLAN:1. Other vitamin B12 deficiency anemia - ICD9: 281.1, ICD10: D51.8 ( primarydiagnosis)- continue b12 shots- CYANOCOBALAMIN (VIT B-12) 1,000 MCG/ML INJECTION SOLUTION- CBC + DIFF - VITAMIN B12 BLOOD2. Iron deficiency - ICD9: 280.9, ICD10: E61.1- continue iron- CBC + DIFF- IRON + TIBC3. Tobacco use disorder - ICD9: 305.1, ICD10: F17.200- Cessation encouraged.- Physiologic and physical aspects of tobacco addiction as well as strategiesfor quitting were discussed.- Counseling was given focusing on the harmful effects of this addictionespecially given the patient's medical condition(s) which will be worsenedbecause of the chemicals in tobacco.4. History of gastric bypass - ICD9: V45.86, ICD10: Z98.890- continue to follow5. RLS (restless legs syndrome) - ICD9: 333.94, ICD10: G25.81- continue meds- CBC + DIFF- IRON + TIBC- VITAMIN B12 BLOOD- GABAPENTIN 300 MG CAPSULEPaul Cheema MDThe documentation for this note was completed by Isabel Rodriges LPN acting asscribe for Paul Cheema MD. August 29, 2016 3:41 PM.Referring Provider: SELF [200]Allergies As of Date: 08/29/2016 Noted Allergy ReactionADHESIVE TAPE (ROSINS) 08/14/2013 2 - RashLATEX 07/09/2007 2 - RashWELLBUTRIN (BUPROPION HCL) 2006 Comments: SeizureDate Reviewed: 08/29/2016Reviewed by: Isabel Rodriges LPN - Fully AssessedReason for Visit: B-12 Injection [247] Refill Request [508] Cmt: gabapentinPrimary Visit Diagnosis: Other vitamin B12 deficiency anemia [D51.8] Other Visit Diagnoses:Iron deficiency [E61.1] Tobacco use disorder [F17.200] History of gastric bypass [Z98.890] RLS (restless legs syndrome) [G25.81]Order(s):cyanocobalamin ( VITAMIN B-12) 1,000 mcg/mL solnInject 1 mL intramuscularly once every month. 1 DOSE MONTHLYDisp: 1 mLRfl: 11 CBC + DIFF [SQCBCDIF] Order #: [id number] FUTURE IRON + TIBC [SQIRON] Order #: [id number] FUTURE VITAMIN B12 BLOOD [SQB12] Order #: [id number] FUTURE gabapentin (NEURONTIN) 300 mg capsuleTake 3 capsules by mouth daily at bedtime.Disp: 90 capsuleRfl: 2Prescriptions as of 08/29/2016 Sig: GABAPENTIN 300 MG CAPSULE Take 3 capsules by mouth madina* FERROUS GLUCONATE 324 MG (36 * Take 1 tablet by mouth twice * CYANOCOBALAMIN (VIT B-12) 1,0* Inject 1 mL intramuscularly o* ETONOGESTREL-ETHINYL ESTRADIO* Use 1 Each vaginally as direc* CYANOCOBALAMIN (VIT B-12) 1,0* Inject 1 mL intramuscularly o*Problem List As Of Date 08/29/2016 Noted Resolved ADJUSTMENT REACTION NOS [F43.20] INVALID FOR*07/14/2007 Seborrheic dermatitis, unspecified [L21.9] INVALID FOR* Attention deficit disorder [F98.8] INVALID FOR*08/29/2016 More... Adjustment disorder with depressed mood [F43.21]INVALID FOR*08/29/2016 Tobacco use disorder [F17.200] INVALID FOR*09/13/2015 More... [facility]*INVALID FOR*09/13/2015 Class: Chronic More... Routine gynecological examination [Z01.419] INVALID FOR*09/13/2015 Class: Chronic More... Morbid obesity (HCC) [ E66.01] INVALID FOR*09/13/2015 Insomnia [G47.00] INVALID FOR*09/13/2015 Thrombosed external hemorrhoid [K64.5] INVALID FOR*09/13/2015 Recurrent UTI (urinary tract infection) complic*INVALID FOR*08/29/2016 More... Kidney stones [N20.0] INVALID FOR*09/13/2015 Marijuana abuse [F12.10] INVALID FOR*08/29/2016 History of gastric bypass [Z98.890] INVALID FOR* History of delivery, currently pregnan*INVALID FOR*05/07/2016 More... History of recurrent UTI ( urinary tract infecti*INVALID FOR* More... History of herpes genitalis [Z86.19] INVALID FOR* More... History of depression [Z86.59] INVALID FOR* More... Tobacco use in [O99.330] INVALID FOR*08/29/2016 More... History of marijuana use [Z87.898] INVALID FOR* More... H/O macrosomia in infant in prior , cu*INVALID FOR*08/29/2016 More... Patient requested diagnostic testing [ Z01.89] INVALID FOR*11/21/2015 More... History of kidney stones [Z87.442] INVALID FOR*09/13/2015 Trichomonal vaginitis during in secon*INVALID FOR*08/29/2016 More... Urgency of urination [R39.15] INVALID FOR*08/29/2016 Frequency of micturition [R35.0] INVALID FOR*08/29/2016 UTI (urinary tract infection) in , ant *INVALID FOR*02/16/2016 RLS (restless legs syndrome) [G25.81] INVALID FOR* Iron deficiency [E61.1] INVALID FOR* Anemia due to vitamin B12 deficiency [D51.9] INVALID FOR*Prescriptions ordered this encounter Disp Refills Start End CYANOCOBALAMIN (VIT B-12) 1,000 MCG/* 1 mL 11 08/29/2016 08/29/2017 Class: Back Office Route: INTRAMUSCULA Sig: Inject 1 mL intramuscularly once every month. 1 DOSE MONTHLY GABAPENTIN 300 MG CAPSULE 90 c* 2 08/29/2016 Route: ORAL Sig: Take 3 capsules by mouth daily at bedtime.Medications Discontinued During This Encounter HYDROcodone- acetaminophen (NORCO) 5-* 3 ta* 0 08/15/2016 08/29/2016 Class: Print RX Route: ORAL Sig: Take 1 tablet by mouth every 6 hours as needed for Pain. Disc: Course of therapy completed gabapentin (NEURONTIN) 300 mg capsule 08/29/2016 Class: Historical Med Route: ORAL Sig: Take 300-900 mg by mouth daily at bedtime. Disc: Reason for discontinue is not on file.Disposition: Return in about 3 months (around 11/29/2016).Follow-up and Disposition History RecordedEncounter Number: [id number] Status:Closed by PAUL CHEEMA MD on 08/29/16 PROGRESS Observed: 08/23/2016 Status: COMPLETED Source: [place] 7:23 AM [facility] REPOSITORY O ID: [id number]: Letty Lawlerervice: (none) Author Type: PhysicianType: Progress NotesFiled: 08/23/2016 7:26 AMNote Text:OPERATIVE NOTATION FOR [facility] SURGICAL PROCEDURE.August 16, 2016Citlali Beckwith 1985 [id number] femalePROCEDURE: Examination Under Anesthesia, Hemorrhoidectomy - [id number]: Greg Curry M.D. FACS PHOTOGRAPHIC DOUBLE: NoneDEPT: CHUCHO PROVIDER: E63=VrjcwxyLetty Curry MD POS: 0K7=ZRPHIXIVTRIHJDKXFEW: (K64.5) External hemorrhoid, thrombosed (primary encounterdiagnosis)ASA CLASS: 2E - mild emergencyFINDINGS:COMPLICATIONS: NonePMHx -PAST MEDICAL HISTORYDiagnosis Date- Anemia- Chlamydia 2003,2008,2013 x3- Herpes simplex virus (HSV) infection- Hypoglycemia 08/12/13- Kidney stone- Marijuana use- Mental disorder- RLS (restless legs syndrome) Amezquita- Seizure Overdose of Wellbutrin- Thrombosed hemorrhoids 2013COMORBIDITIES - NonePost Op Occurrences - NoneWound Classification - ContaminatedOperative note dictated in the [facility] dictationsystem.Letty Curry MD OPERATIVE REPORT Observed: 08/17/2016 Status: F Source: [place] 6:05 AM [facility] REPOSITORY [facility] [id number] [facility]ATNEZM[facility]ERV[place]AL[place], [place] [address]Lsregrunz ReportMR#: [id number] Acct: [id number]: CITLALI BECKWITH Rep #: [id number]: 1985 30 From: Letty Curry MDPCP: Paul Cheema MD Status: DEP SDCDATE OF SERVICE: 2016DATE OF SERVICE:08/16/2016PREOPERATIVE DIAGNOSIS:Recurrent right posterior thrombosed hemorrhoid.POSTOPERATIVE DIAGNOSIS:Right recurrent posterolateral thrombosed hemorrhoid.PROCEDURES:Examination under anesthesia, single quadrant hemorrhoidectomy.SURGEON:Letty Curry M.D.ANESTHESIA:General endotracheal.ANESTHESIOLOGIST:Dr. Sharp:SHANEL FLUIDS:____ mL.ESTIMATED BLOOD LOSS:30 mL.URINE OUTPUT:No catheter.FINDINGS:Solitary thrombosed hemorrhoid. No other abnormalities on bi-digital anoscopy exam.Complex is right posterior hemorrhoidal complex.DISPOSITION:The patient was taken to PACU in stable condition.BRIEF DESCRIPTION OF PROCEDURE:The patient was brought to the operating suite. Sign-in was performed verifying patient,site, procedure, position, critical nursing information, VT and antibiotic prophylaxis.The patient received 1 g of cefotetan, had sequential compression devices placed.Following induction of general anesthetic, the patient was positioned in the modifiedlithotomy position. Perineal area was prepped and draped in sterile fashion. Time-outwas performed verifying patient, site, procedure, position. Bi-digital exam revealedright posterior re-thrombosed external hemorrhoidal complex approximately 4 x 2 cm insize. There were no other external anal abnormalities on bi-digital exam. Anoscopydemonstrated no other abnormalities. At this point, a single quadrant hemorrhoidectomywas performed. The intra-anal and lateral anoderm aspects were marked. An ellipticalincision made in the anoderm. The hemorrhoidal complex dissected bluntly off thesphincter complex initially sharply and then bluntly and then the internal analhemorrhoidal complex was excised with cautery. Ngzott-kd-lqbns 3-0 chromic suture wasused at the apex of the intra-anal external excision and hemorrhoidal complex transectedand sent to pathology. A running locking suture transitioned to a simple suture wasperformed and closed the hemorrhoidal complex. There was good hemostasis at this point intime. An 8 mL of 0.5% Marcaine was injected subcutaneously and slightly intra-anally withcare being taken to aspirate to avoid intravascular injection. Then, 8 mL of ____ wasinjected subcutaneously, mostly laterally and a smaller amount intra-anally with carebeing taken to assure that there is not intravascularly injected. Gelfoam was placed inthe anal canal. No dibucaine was used, dressing applied. The patient was awakened,extubated, brought to recovery in stable condition.Letty Curry MDT: NTSJOB: [id number] <Electronically signed by Letty Curry MD>Date Letty Curry MDCosigner Signature (If Indicated): Date CC: Letty Curry MD; Paul Cheema MD Date Dictated: 08/16/161717Date Transcribed: 08/16/161717Transcriptionist:Signed DISCHARGE INSTRUCTION Observed: 08/16/2016 Status: F Source: [place] 5:11 PM [facility] REPOSITORY [facility]ITAL[facility] Records [id number] [place] [address]Dfwtbudhshlu for Home/Discharge Kpafrpsmgyji22/18/17 1709MR #: [id number] Acct: [id number]: CITLALI BECKWITH Rep #: [id number]: 1985 30 From: Letty Curry MDPCP: Paul Cheema MD Status: REG SDCDischarge Diet: No RestrictionsDischarge Activity: Return to Normal Activity, May Not Drive - while taking narcotic painmedications.Additional Activity Instructions:: Do not drive or work with heavy equipment or sign legaldocuments for 24 hours. Be aware that pain medications may cause nausea. You should typicallyeat light foods as you take your pain medications. Pain medications may also causeconstipation, if you have difficulty with this please discuss with your doctor.Additional Dressing/Incision Instructions:: Leave the operative bandage on for 2 days. Sitzbaths twice daily and after bowel movements.Allergies/Adverse Reactions:Allergiesadhesive tape Allergy (Verified 08/16/16 15:37) Otherbupropion [From Wellbutrin] Allergy (Verified 08/16/16 15:37)Otherlatex Allergy (Verified 08/16/16 15:37)Otheraspirin Adverse Reaction (Verified 08/16/16 15:37) OtherNSAIDS (Non-Steroidal Anti-Inflamma Adverse Reaction (Verified 08/16/16 15:37)OtherMedications to take at DischargeEtonogestrel/Ethinyl Estradiol [ Nuvaring Vaginal Ring] 1 unit VAGINAL UD 08/16/16Gabapentin 300 mg PO QHS Hydrocodone Bitart/Apap 5-325 [Franklin 5/325] 1 - 2 tablet PO Q6H PRN PRN #30 tablet The following prescriptions were given:Hydrocodone Bitart/Apap 5-325 [Franklin 5/325] 1 - 2 tablet PO Q6H PRN PRN #30 tabletPRN Reason: Mild-Moderate Pain (1-08/08)Primary Care Physician:Paul Cheema MD [Primary Care Provider] -Please Follow Up With: Letty Curry - [phone]: Plan to have a follow up approximately 7 days after surgery.08/16/16 8220 <Electronically signed by Letty Curry MD&gt ;Date Letty Curry [facility]: Paul Cheema MD HEMORRHOIDS Observed: 08/16/2016 Status: F Source: [place] 4:40 PM [facility] REPOSITORY Patient: CITLALI BECKWITH : 1985 (30/F) Acct Num : [id number] Phys: Rosa MORRIS,Letty Unit Num: [id number] Loc: [facility] Specimen: [id number] Received: 08/17/16 - 1052 Spec Type: HEMORRHOID TISSUES TISSUES: GROSS DESCRIPTION Received is one container labeled with the patient's name and designated hemorrhoids. The specimen consists of a piece of pink, congested mucosal tissue measuring 2.5 x 2 x 1.2 cm. Sections reveal congested and hemorrhagic cut surfaces. Automotive Electrical Helper sections are submitted in one cassette. / SJ:shellie 08/17/16 TC:5 CPT: 96572 HEADER OPERATION: Exam under anesthesia, hemorrhoids PRE-OP DIAGNOSIS: Status post incision and evacuation of external thrombosed hemorrhoids with recurring pain TISSUE SUBMITTED: Hemorrhoids MICROSCOPIC DESCRIPTION Slides are reviewed. MICROSCOPIC DIAGNOSIS Hemorrhoids, hemorrhoidectomy: Submucosal vascular ectasia and thrombosis consistent with hemorrhoids. AM:shellie 08/20/16 Signed Je Camille 08/20/16 < signature on file> Performed By: #### PHEM ####[facility] [address] [place], [address] CBC W/DIFF, AUTOMATED Collected: 08/16/2016 Status: F Source: [place] 3:25 PM [facility] REPOSITORY Order Comment: Comments: room 11Comments: room 11 TYPE CODE TESTS RESULT OUT OF RANGE REFERENCE UNITS LAB L100.1000 Normal 4.4-11.0 K/mm3 WBC 6.2 LAB L100.1200 Normal 4.2-5.4 M/mm3 RBC 4.43 LAB L100.1300 Low 12.0-15.0 g/dl HGB 10.7 LAB L100.1400 Low 37-47 % HCT 35.0 LAB L100.1500 Low 81-99 fL MCV 79.0 LAB L100.1600 Low 27.0-32.0 pg MCH 24.2 LAB L100.1700 Low 32-36 g/gl MCHC 30.6 LAB L100.1810 High 11.6-14.6 % RDW 16.6 CV LAB L100.1820 High 35.1-43.9 fl RDW 48.3 SD LAB L100.1900 Normal 150-450 K/mm3 PLT 256 LAB L100.2000 Normal 6.2-12.0 fl MPV 9.6 LAB L100.2100 Normal 47-70 % NEUT% 60.4 LAB L100.2200 Normal 19-41 % LY% 30.9 LAB L100.2300 Normal 0-10 % MONO% 5.6 LAB L100.2400 Normal 0-5 % EO% 2.6 LAB L100.2500 Normal 0-1 % BASO% 0.5 LAB L100.2550 Normal 0.0-0.9 % IM 0.000 GRAN % Result Comment: IG% - Immature Granulocytes (promyelocytes, myelocytes andmetamyelocytes) > 1% indicates that a LEFT SHIFT is Present. LAB L100.2620 Normal 2.0-7.7 X10 3/uL Absolute Neut 3.8 LAB L100.2720 Normal 0.83-4.51 X10 3/ul Absolute Lymph 1.92 Performed By: #### L100.0100 ####[facility] [address] [facility]. [place], [place], [id number] ,SERUM,HCG QUALI. Collected: Status: F Source: [place] 08/16/2016 3:25 PM [facility] REPOSITORY TYPE CODE TESTS RESULT OUT OF REFERENCE UNITS RANGE LAB L700.7000 Normal 0-9 Nonpreg Negative HCGSQUAL NEGATIVE LAB L700.6700 Normal =>Qualitati mIU/mL HCG Qual < 1 ve triggr Performed By: #### L700.6800 ####[facility] [address] [facility]. [place], [place], [address] PROGRESS Observed: 08/16/2016 Status: COMPLETED Source: [place] 1:51 PM [facility] [place] REPOSITORY O ID: [id number]: Letty Lawlerervice: (none) Author Type: PhysicianType: Progress NotesFiled: 08/18/2016 10:35 AMNote Text:HISTORY AND PHYSICALDana Reid Tang1984REFERRING PHYSICIAN: Paul Cheema MDCKYAWILDA COMPLAINT: Thrombosed hemorrhoidHPI: Citlali is a 30 year old female with a complaint of a thrombosedhemorrhoid. she has noticed anal pain and swelling for the past 2 days. she denies drainage from the thrombosed hemorrhoid. Citlali notes aprior history of thrombosed hemorrhoids. she denies a history ofconstipation and straining.The patient was seen by her primary care physician and was referred fortreatment.Had incision and evacuation yesterday. Pain is worse todaySIGNIFICANT MEDICAL PROBLEMS:PAST MEDICAL HISTORYDiagnosis Date- Anemia- Chlamydia 2003, 2008,2013 x3- Herpes simplex virus (HSV) infection- Hypoglycemia 08/12/13- Kidney stone- Marijuana use- Mental disorder- RLS (restless legs syndrome) Amezquita- Seizure Overdose of Wellbutrin- Thrombosed hemorrhoids 2014OPERATIONS: PAST SURGICAL HISTORYNo date: DELIVERY ONLY Comment: , low /23/2017: DELIVERY ONLY N/: GASTRIC BYPASS HXNo date: PAST SURGICAL HISTORY OF Comment: kidney stoneCURRENT MEDICATIONS:Current Outpatient Prescriptions:HYDROcodone-acetaminophen (NORCO) 5-325 mg per tablet Take 1 tablet bymouth every 6 hours as needed for Pain. Disp: 3 tablet Rfl: 0Ferrous Gluconate 324 mg (36 mg iron) tab Take 1 tablet by mouth twicedaily with meals. Disp: 60 tablet Rfl: 5cyanocobalamin (VITAMIN B-12) 1,000 mcg/mL soln Inject 1 mLintramuscularly once every month. 1 DOSE MONTHLY Disp: 1 mL Rfl: 11Etonogestrel-Ethinyl Estradiol (NUVARING) 0.12-0.015 mg/24 hr vaginal ringUse 1 Each vaginally as directed. 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 *Social History Main Topics Smoking status: Former Smoker Packs/day: 0.50 Years: 13.00 Types: Cigarettes Quit date: 03/15/2016 Alcohol use: Yes Comment: social, not while Drug use: No Comment: Hx marijuana use Sexual activity: Yes control/protection: Other Comment: depo provera, mirena removed FAMILY HISTORY:FAMILY HISTORY Alcohol/Drug Father Hypertension Maternal Grandfather Comment: CHF Heart Maternal Grandfather Comment: [place] Cancer Paternal Grandmother Comment: throat cancer Stroke Paternal GrandmotherREVIEW OF SYMPTOMS: The review of systems data was entered by the nurse and reviewed by Elizabeth ramachandran no exam notes on file for this visit.PHYSICAL EXAMINATION:General: The patient is 30 year old female, well nourished, well hydratedin no acute distress. The patient is oriented to time, place, and person.VITALS: not currently . There is no height or weight on fileto calculate BMI.HEENT: exam deferredRespiratory: exam deferredCardiac : exam deferred.Abdominal exam: exam deferredRectal exam: prolapsing thrombosed hemorrhoids in right lateral. Digitalrectal exam - deferredExtremities: exam deferredOther:LABORATORY VALUES: As NotedRADIOLOGIC STUDIES: As NotedIMPRESSION: STATUS POST INCISION AND EVACUATION OF THROMBOSED HEMORRHOID- recurring painPLAN: I plan for EUA/hemorrhoidectomy. The planned surgical procedurewas discussed extensively with the patient. The risks, benefits andanticipated outcomes of the procedure, the risks and benefits of thealternatives to the procedure, and the roles and tasks of the personnel yosvany involved, were discussed with the patient. My staff has also explainedthe procedure in understandable terms and the patient was given the optionto take printed material concerning the planned procedure. The patienthad the opportunity to ask questions concerning the planned procedure.The patient freely consents to the planned procedure.Anticipated Surgical Procedure/ CPT Code: Examination Under Anesthesia,Hemorrhoidectomy - [id number] Anesthetic : GeneralPatient weight: not currently . BMI: There is no heightor weight on file to calculate BMI.Planned antibiotic: Cefotetan 1gm IVPB recreational specialist to ORSCDs needed - YesAssistant Needed - NoDiagnoses: (K64.5) External hemorrhoid, thrombosed (primary encounterdiagnosis)Return to Clinic: The patient is instructed to follow-up with me 1 weekpost operatively. Letty Curry MD CNOV Observed: 08/16/2016 Status: COMPLETED Source: [place] 1:00 PM [facility] REPOSITORY Office Visit (GENSWS) ---------CITLALI BECKWITH ([id number]) 1985 FDate Time Provider Department08/16/16 1:00 PM LETTY CURRY During your visit today, we recorded the following information about you:Letty Curry MD 08/18/2016 10:35 AM SignedHISTORY AND PHYSICALDana Reid Beckwith1985REFERRING PHYSICIAN: Paul Cheema [facility] COMPLAINT: Thrombosed hemorrhoidHPI: Citlali is a 30 year old female with a complaint of a thrombosed hemorrhoid.she has noticed anal pain and swelling for the past 2 days. she deniesdrainage from the thrombosed hemorrhoid. Citlali notes a prior history ofthrombosed hemorrhoids. she denies a history of constipation and straining.The patient was seen by her primary care physician and was referred fortreatment.Had incision and evacuation yesterday. Pain is worse todaySIGNIFICANT MEDICAL PROBLEMS:PAST MEDICAL HISTORYDiagnosis Date- Anemia- Chlamydia 2003,2008,2013 x3- Herpes simplex virus (HSV) infection- Hypoglycemia 08/12/13- Kidney stone- Marijuana use- Mental disorder- RLS (restless legs syndrome) Amezquita- Seizure Overdose of Wellbutrin- Thrombosed hemorrhoids 2013OPERATIONS: PAST SURGICAL HISTORYNo date: DELIVERY ONLY Comment : , low nrziqqxk13/23/2017: DELIVERY ONLY N/A1: GASTRIC BYPASS HXNo date : PAST SURGICAL HISTORY OF Comment: kidney stoneCURRENT MEDICATIONS:Current Outpatient Prescriptions:HYDROcodone-acetaminophen (NORCO) 5-325 mg per tablet Take 1 tablet by mouthevery 6 hours as needed for Pain. Disp: 3 tablet Rfl: 0Ferrous Gluconate 324 mg (36 mg iron) tab Take 1 tablet by mouth twice dailywith meals. Disp: 60 tablet Rfl: 5cyanocobalamin ( VITAMIN B-12) 1,000 mcg/mL soln Inject 1 mL intramuscularlyonce every month. 1 DOSE MONTHLY Disp: 1 mL Rfl: 11Etonogestrel-Ethinyl Estradiol (NUVARING) 0.12-0.015 mg/24 hr vaginal ring Use1 Each vaginally as directed. 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 *Social History Main Topics Smoking status: Former Smoker Packs/day: 0.50 Years: 13.00 Types: Cigarettes Quit date: 03/15/2016 Alcohol use: Yes Comment: social, not while Drug use: No Comment: Hx marijuana use Sexual activity: Yes control/ protection: Other Comment: depo provera, mirena removed 09/29/07FAMILY HISTORY:FAMILY HISTORY Alcohol/Drug Father Hypertension Maternal Grandfather Comment: CHF Heart Maternal Grandfather Comment: [place] Cancer Paternal Grandmother Comment: throat cancer Stroke Paternal GrandmotherREVIEW OF SYMPTOMS: The review of systems data was entered by the nurse and reviewed by Elizabeth are no exam notes on file for this visit.PHYSICAL EXAMINATION:General: The patient is 30 year old female , well nourished, well hydrated inno acute distress. The patient is oriented to time, place, and person.VITALS: not currently . There is no height or weight on file tocalculate BMI.HEENT: exam deferredRespiratory: exam deferredCardiac: exam deferred.Abdominal exam: exam deferredRectal exam: prolapsing thrombosed hemorrhoids in right lateral. Digitalrectal exam - deferredExtremities: exam deferredOther:LABORATORY VALUES: As NotedRADIOLOGIC STUDIES: As NotedIMPRESSION: STATUS POST INCISION AND EVACUATION OF THROMBOSED HEMORRHOID -recurring painPLAN: I plan for EUA/hemorrhoidectomy. The planned surgical procedure wasdiscussed extensively with the patient. The risks, benefits and anticipatedoutcomes of the procedure, the risks and benefits of the alternatives to theprocedure, and the roles and tasks of the personnel to be involved, werediscussed with the patient. My staff has also explained the procedure inunderstandable terms and the patient was given the option to take printedmaterial concerning the planned procedure. The patient had the opportunity toask questions concerning the planned procedure. The patient freely consents tothe planned procedure.Anticipated Surgical Procedure/ CPT Code: Examination Under Anesthesia,Hemorrhoidectomy - 82289-332Izqwvilzzwd Anesthetic: GeneralPatient weight: not currently . BMI: There is no height orweight on file to calculate BMI.Planned antibiotic: Cefotetan 1gm IVPB recreational specialist to ORSCDs needed - YesAssistant Needed - NoDiagnoses : (K64.5) External hemorrhoid, thrombosed (primary encounterdiagnosis)Return to Clinic: The patient is instructed to follow-up with me 1 week postoperatively. Letty Curry, MDReferring Provider: PAUL CHEEMA [[id number]]Allergies As of Date: 08/16/2016 Noted Allergy ReactionADHESIVE TAPE (ROSINS) 08/14/2013 2 - RashGABAPENTIN 08/15/2016 5 - IntoleranceLATEX 07/09/2007 2 - RashWELLBUTRIN (BUPROPION HCL) 11/28/2006 Comments: SeizureDate Reviewed: 2016Reviewed by: Yovani Norris LPN - Fully AssessedReason for Visit: Post Op [174] Cmt: f/u Thrombosed hemorrhoid IANDE 08/15/16Primary Visit Diagnosis:External hemorrhoid, thrombosed [K64.5] Prescriptions as of 08/16/2016 Sig: HYDROCODONE 5 MG-ACETAMINOPHE* Take 1 tablet by mouth every * FERROUS GLUCONATE 324 MG (36 * Take 1 tablet by mouth twice * CYANOCOBALAMIN (VIT B-12) 1,0* Inject 1 mL intramuscularly o* ETONOGESTREL-ETHINYL ESTRADIO* Use 1 Each vaginally as direc*Problem List As Of Date 08/16/2016 Noted Resolved ADJUSTMENT REACTION NOS [F43.20] INVALID FOR*07/14/2007 Unspecified Seborrheic Dermatitis [L21.9] INVALID FOR* Attention deficit disorder [F98.8] INVALID FOR* More... Adjustment Disorder with Depressed Mood [F43.21]INVALID FOR* Tobacco use disorder [F17.200] INVALID FOR*09/13/2015 More... Routine general medical examination at [facility]*INVALID FOR*2015 Class: Chronic More... Routine gynecological examination [Z01.419] INVALID FOR*2015 Class: Chronic More... Morbid obesity (HCC) [E66.01] INVALID FOR *09/13/2015 Insomnia [G47.00] INVALID FOR*09/13/2015 Thrombosed external hemorrhoid [K64.5] INVALID FOR*09/13/2015 Recurrent UTI (urinary tract infection ) complic*INVALID FOR* More... Kidney stones [N20.0] INVALID FOR* Marijuana abuse [F12.10] INVALID FOR* History of gastric bypass [ Z98.890] INVALID FOR* History of delivery, currently pregnan*INVALID FOR*05/07 More... History of recurrent UTI (urinary tract infecti*INVALID FOR* More... History of herpes genitalis [Z86.19] INVALID FOR* More... History of depression [Z86.59] INVALID FOR* More... Tobacco use in [O99.330] INVALID FOR* More... History of marijuana use [Z87.898] INVALID FOR* More... H/O macrosomia in in prior , cu*INVALID FOR* More... Patient requested diagnostic testing [ Z01.89] INVALID FOR*11/21/2015 More... History of kidney stones [Z87.442] INVALID FOR*09/13/2015 Trichomonal vaginitis during in secon*INVALID FOR* More... Urgency of urination [R39.15] INVALID FOR* Frequency of micturition [R35.0] INVALID FOR* UTI (urinary tract infection) in , ant*INVALID FOR*2015Letter TextNURSE'S SIGNATUREDOCTOR'S SIGNATURE TIMETIMEDATEMay 2016[facility]PITALDATEMay 2016Orders verified by readback: PRE-ADMISSION TESTING PHYSICIAN'S ORDER SHEET PREOPERATIVE ORDERS:X ANTIBIOTIC: _Cefotetan 1gm IVPB recreational specialist to OR__ aware of penicillin allergy ok to administer X SCD'S__ PREP LOCATION: ___[facility] [place]___ PAINT WITH BETADINE/ CHLORAHEXIDINE PREPPRE-ADMISSION TESTING PHYSICIAN'S ORDER [id number] REV 06.12.07ANESTHESIA:__ Surgeon has notified anesthesia. Date/Time Doctor OR__ Anesthesia not yet notified of consult by surgeon. Check area of concern.System of concern: __Cardiac __ Pulmonary __Neuro __ Airway__Allergies __Other Anesthesia to see patient at PAT appointment. (PAT appt must be between1-3 pm)LAB ORDERS:X Labs done at [facility] ( Copies enclosed for [facility])__ Duplicate order__ No Labs ordered___ CBC_X__ CBC/Diff___ Basic Metabolic Profile (BUN, Lytes, Glu, Cre, Calcium)__ Glucose__ Creatinine__ BUN__ Lytes__ Protime- Dx code: PTT - Dx code: Urinalysis__ Urinalysis (complete)__ Liver Profile__ Lipid Profile__ Alk Phosphatase__ Bilirubin__ Amylase/Lipase__ Magnesium__ Phosphorous__ PSA - Dx code: CEA - Dx code: Urine Pregnancy_X Serum (Age 11-52 years old unless sterilization or pt refuses)X Screen for MRSA (PCR) if guidelinesmetOther: BLOOD BANK:__ Type AND Screen__ Type AND Cross (RC) units__ Autologous units__ Fresh Frozen Plasma units__ Platelets units ANCILLARY DEPTS:__EKG-MD to read: PA/Lat CXR 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 Adhesive Tape (Rosins); Gabapentin; Latex; Wellbutrin [BupropionHcl]Patient's Name: Pascale Beckwith Birthdate: 1985Diagnosis: (K64.5) External hemorrhoid, thrombosed (primary encounterdiagnosis) [facility]: Examination Under Anesthesia, Hemorrhoidectomy -14516- 007Surgeon / Physician: Letty Curry MD My doctor and I talked about the recommended surgery/ procedure, the reasonsit is being recommended, andwhat it generally is expected to do. We talked about major risks orcomplications that could occur. We talkedabout options other than the recommended surgery/procedure (including notreatment) and the benefits and risksof each option. I received and understand information describing the surgeryor procedure, its potential risks andcomplications. I know surgery/medicine is not an exact science. No doctor, nurse oranyone from [facility] promised or guaranteed the success or clinical outcome of thesurgery/procedure, or that a risk orcomplication could not occur. I know every surgery/procedure has risks, including the risk ofanesthesia, the risk of unplanned injury, the riskof infection and the risk of failure. I know that not every possible riskcould be covered in the written materials or intalking with the doctor. Before signing this Consent, I had an opportunity todiscuss the recommendedsurgery/procedure, other options, and risks. I am satisfied with the answersto all of my questions. I understandabout risks and knowingly accept them. If you are (or believe you may be ), tell your doctor ornurse before you sign thisConsent. Your doctor will discuss with you if there are potential risks toyour unborn child. Your consentwill be for yourself and for the unborn child. It is the Hospital's policy to require that a responsible adult drive youdirectly home when you leavethe Hospital. By signing, you accept and agree with this policy.By signing, I voluntarily and knowingly give my informed consent:O To have the doctor perform the recommended surgery/procedure.O To have such anesthetics (including moderate sedation) that are necessaryand advisable.O To have the doctor perform additional, medically necessarysurgery/procedures to treat any unforeseen or newly-discovered condition that occurs during surgery/the procedure,which needs prompt attention.O To examine, record and dispose of any tissue or body parts that areremoved.O To allow photographs that will be used strictly for documenting my medicalcondition and treatment, which will be made a part of my confidential medical record.Check, if applicable:- To give me blood or blood products during surgery/procedure and duringmy hospital stay, as medicallynecessary. The risks , benefits, and alternatives to transfusions have beendiscussed with me and all myquestions have been answered.- To not give me blood or blood products. I fully understand that thismay adversely affect my medicalmanagement and may result in my . Alternatives to blood/blood productshave been discussed with me.I read this Form, or had it read to me. I understand what it says. Patient or Responsible Person Relationship to PatientWitness to Signature Only Reason Patient Does Not Sign-- __Date and Time signed Physician's [id number] Rev 10/05 InformedConsent [address] [place], [place] [address]Informed ConsentSurgery / Procedure: Examination Under Anesthesia, Hemorrhoidectomy -07928- 007Surgeon / Physician: Letty Curry MD My doctor and I talked about the recommended surgery / procedure, thereasons it is being recommended, and what it generally is expected to do. Wetalked about major risks or complications that could occur. We talked aboutoptions other than the recommended surgery / procedure (including notreatment) and the benefits and risks of each option. I received andunderstand information describing the surgery or procedure, its potentialrisks, and complications. I know surgery / medicine is not an exact science. No doctor , nurse oranyone from [facility] promised or guaranteed the success orclinical outcome of the surgery / procedure, or that a risk or complicationcould not occur. I know every surgery / procedure has risks, including the risk ofanesthesia, the risk of unplanned injury, the risk of infection and the riskof failure. I know that not every possible risk could be covered in thewritten materials or in talking with the doctor. Before signing thisConsent, I had an opportunity to discuss the recommended surgery / procedure,other options, risks, and what may occur if I choose not to have the surgery/ procedure. I am satisfied with the answers to all of my questions. Iunderstand about risks and knowingly accept them. If you are (or believe you may be ), tell your doctor ornurse before you sign this Consent. Your doctor will discuss with you ifthere are potential risks to your unborn child. Your consent will be foryourself and for the unborn child. It is the Hospital?s policy to require that a responsible adult drive youdirectly home when you leave the Hospital. By signing, you accept and agreewith this policy.By signing, I voluntarily and knowingly give my informed consent:To have the doctor perform the recommended surgery / procedureTo have such anesthetics (including moderate / deep sedation) that arenecessary and advisable.To have the doctor perform additional, medically necessary surgery /procedures to treat any unforeseen or newly-discovered condition that occursduring surgery / the procedure, which needs prompt attention.To examine, record and dispose of any tissue or body parts that are removed.To allow photographs that will be used strictly for documenting my medicalcondition and treatment, which will be made a part of my confidential medicalrecord.To allow [facility] employees, such as an Registered NurseFirst Delivery Lead (SUBSTATION OPERATOR TRANSFORMING) to assist with my surgeryTo allow Healthcare Industry Representatives to be present during my surgeryor procedureTo allow students to participate in the care, under appropriate situations. [address] [place], [place] [address]Informed ConsentCheck One:To give me blood or blood products during surgery / procedure and during myhospital stay, as medically necessary. The risks, benefits, and alternativesto transfusions have been discussed with me and all my questions have beenanswered.To not give me blood or blood products. I fully understand that this mayadversely affect my medical management and may result in my .Alternatives to blood / blood products have been discussed with me.I read this Form, or had it read to me. I understand what it says.Patient Signature Relationship to Patient Date AND Time SignedReason Patient Does Not SignWitness to Signature Only Date and Time SignedI certify that I have explained the nature, purpose, anticipated risks andbenefits, complications, and alternatives to the proposed procedure to thepatient. I have answered all questions fully and I believe the patient fullyunderstands what I have explained.Physician?s Signature Date and TimeWoosterDeencompass health rehabilitation hospital of [facility] Lcdjrmm[address] [place], [place] [address]Rzzor: Paul Cheema MD[address] [place], [place] [address]Cjatk: [phone]: [phone]/Dear Paul Cheema MD : Thank you for allowing me to evaluate your patient, Citlali Beckwith. I sawDana on 08/16/2016. I am planning to perform a wqefsadfjh. Enclosed is a copy ofmy office dictation for Citlali which includes my evaluation andrecommendations.Again, thank you for the referral of Citlali Beckwith. If I can be of anyassistance to you in the future, please don't hesitate to call.Sincerely yours,Letty Curry MD, FACSHISTORY AND PHYSICALDana Reid Beckwith1985REFERRING PHYSICIAN: Paul Cheema, [facility] COMPLAINT: Thrombosed hemorrhoidHPI: Citlali is a 30 year old female with a complaint of a thrombosedhemorrhoid. she has noticed anal pain and swelling for the past 2 days.she denies drainage from the thrombosed hemorrhoid. Citlali notes a priorhistory of thrombosed hemorrhoids. she denies a history of constipation andstraining.The patient was seen by her primary care physician and was referred fortreatment.Had incision and evacuation yesterday. Pain is worse todaySIGNIFICANT MEDICAL PROBLEMS:PAST MEDICAL HISTORYDiagnosis Date- Anemia- Chlamydia 2003,2008,2013 x3- Herpes simplex virus (HSV) infection- Hypoglycemia 08/12/13- Kidney stone- Marijuana use- Mental disorder- RLS (restless legs syndrome) Amezquita- Seizure Overdose of Wellbutrin- Thrombosed hemorrhoids 2014OPERATIONS: PAST SURGICAL HISTORYNo date: DELIVERY ONLY Comment: , low xlsrabsf70/23/2017: DELIVERY ONLY N/: GASTRIC BYPASS HXNo date: PAST SURGICAL HISTORY OF Comment: kidney stoneCURRENT MEDICATIONS:Current Outpatient Prescriptions:HYDROcodone-acetaminophen (NORCO) 5-325 mg per tablet Take 1 tablet bymouth every 6 hours as needed for Pain. Disp: 3 tablet Rfl: 0Ferrous Gluconate 324 mg (36 mg iron) tab Take 1 tablet by mouth twicedaily with meals. Disp: 60 tablet Rfl: 5cyanocobalamin (VITAMIN B-12) 1,000 mcg/mL soln Inject 1 mLintramuscularly once every month. 1 DOSE MONTHLY Disp: 1 mL Rfl: 11Etonogestrel-Ethinyl Estradiol (NUVARING) 0.12-0.015 mg/24 hr vaginal ringUse 1 Each vaginally as directed. 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 *Social History Main Topics Smoking status: Former Smoker Packs/day: 0.50 Years: 13.00 Types: Cigarettes Quit date: 03/15/2016 Alcohol use: Yes Comment: social, not while Drug use: No Comment: Hx marijuana use Sexual activity: Yes control/protection: Other Comment: depo provera, mirena removed 09/29/07FAMILY HISTORY:FAMILY HISTORY Alcohol/Drug Father Hypertension Maternal Grandfather Comment: CHF Heart Maternal Grandfather Comment: [place] Cancer Paternal Grandmother Comment: throat cancer Stroke Paternal GrandmotherREVIEW OF SYMPTOMS: The review of systems data was entered by the nurse and reviewed by meThere are no exam notes on file for this visit.PHYSICAL EXAMINATION:General: The patient is 30 year old female, well nourished, well hydrated inno acute distress. The patient is oriented to time , place, and person.VITALS: not currently . There is no height or weight on file tocalculate BMI.HEENT: exam deferredRespiratory: exam deferredCardiac: exam deferred.Abdominal exam: exam deferredRectal exam: prolapsing thrombosed hemorrhoids in right lateral. Digitalrectal exam - deferredExtremities: exam deferredOther:LABORATORY VALUES: As NotedRADIOLOGIC STUDIES: As NotedIMPRESSION: STATUS POST INCISION AND EVACUATION OF THROMBOSED HEMORRHOID -recurring painPLAN: I plan for EUA/hemorrhoidectomy. The planned surgical procedure wasdiscussed extensively with the patient. The risks, benefits and anticipatedoutcomes of the procedure, the risks and benefits of the alternatives to theprocedure, and the roles and tasks of the personnel to be involved, werediscussed with the patient. My staff has also explained the procedure inunderstandable terms and the patient was given the option to take printedmaterial concerning the planned procedure. The patient had the opportunityto ask questions concerning the planned procedure. The patient freelyconsents to the planned procedure.Anticipated Surgical Procedure/ CPT Code: Examination Under Anesthesia,Hemorrhoidectomy - 75124-510Nwgoyagpqtr Anesthetic: GeneralPatient weight: not currently . BMI: There is no height orweight on file to calculate BMI.Planned antibiotic: Cefotetan 1gm IVPB recreational specialist to ORSCDs needed - YesAssistant Needed - NoDiagnoses : (K64.5) External hemorrhoid, thrombosed (primary encounterdiagnosis)Return to Clinic: The patient is instructed to follow-up with me 1 week postoperatively. Letty Curry MD08/16/2016HISTORY AND PHYSICALDaluisana Beckwith1984REFERRING PHYSICIAN: Paul Cheema [facility] COMPLAINT: Thrombosed hemorrhoidHPI: Citlali is a 30 year old female with a complaint of a thrombosedhemorrhoid. she has noticed anal pain and swelling for the past 2 days.she denies drainage from the thrombosed hemorrhoid. Citlali notes a priorhistory of thrombosed hemorrhoids. she denies a history of constipation andstraining.The patient was seen by her primary care physician and was referred fortreatment.Had incision and evacuation yesterday. Pain is worse todaySIGNIFICANT MEDICAL PROBLEMS:PAST MEDICAL HISTORYDiagnosis Date- Anemia- Chlamydia 2003,2008,2013 x3- Herpes simplex virus (HSV) infection- Hypoglycemia 08/12/13- Kidney stone- Marijuana use- Mental disorder- RLS (restless legs syndrome) Amezquita- Seizure Overdose of Wellbutrin- Thrombosed hemorrhoids 2013OPERATIONS: PAST SURGICAL HISTORYNo date: DELIVERY ONLY Comment: , low szoujhzj67/23/2017: DELIVERY ONLY N/: GASTRIC BYPASS HXNo date: PAST SURGICAL HISTORY OF Comment: kidney stoneCURRENT MEDICATIONS:Current Outpatient Prescriptions:HYDROcodone-acetaminophen (NORCO) 5-325 mg per tablet Take 1 tablet bymouth every 6 hours as needed for Pain. Disp: 3 tablet Rfl: 0Ferrous Gluconate 324 mg (36 mg iron) tab Take 1 tablet by mouth twicedaily with meals. Disp: 60 tablet Rfl: 5cyanocobalamin (VITAMIN B-12) 1,000 mcg/mL soln Inject 1 mLintramuscularly once every month. 1 DOSE MONTHLY Disp: 1 mL Rfl: 11Etonogestrel-Ethinyl Estradiol (NUVARING) 0.12-0.015 mg/24 hr vaginal ringUse 1 Each vaginally as directed. 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 *Social History Main Topics Smoking status: Former Smoker Packs/day: 0.50 Years: 13.00 Types: Cigarettes Quit date: 03/15/2016 Alcohol use: Yes Comment: social, not while Drug use: No Comment: Hx marijuana use Sexual activity: Yes control/protection: Other Comment: aaron ford removed 09/29/07FAMILY HISTORY:FAMILY HISTORY Alcohol/Drug Father Hypertension Maternal Grandfather Comment: CHF Heart Maternal Grandfather Comment: [place] Cancer Paternal Grandmother Comment: throat cancer Stroke Paternal GrandmotherREVIEW OF SYMPTOMS: The review of systems data was entered by the nurse and reviewed by meThere are no exam notes on file for this visit.PHYSICAL EXAMINATION:General: The patient is 30 year old female, well nourished, well hydrated inno acute distress. The patient is oriented to time , place, and person.VITALS: not currently . There is no height or weight on file tocalculate BMI.HEENT: exam deferredRespiratory: exam deferredCardiac: exam deferred.Abdominal exam: exam deferredRectal exam: prolapsing thrombosed hemorrhoids in right lateral. Digitalrectal exam - deferredExtremities: exam deferredOther:LABORATORY VALUES: As NotedRADIOLOGIC STUDIES: As NotedIMPRESSION: STATUS POST INCISION AND EVACUATION OF THROMBOSED HEMORRHOID -recurring painPLAN: I plan for EUA/hemorrhoidectomy. The planned surgical procedure wasdiscussed extensively with the patient. The risks, benefits and anticipatedoutcomes of the procedure, the risks and benefits of the alternatives to theprocedure, and the roles and tasks of the personnel to be involved, werediscussed with the patient. My staff has also explained the procedure inunderstandable terms and the patient was given the option to take printedmaterial concerning the planned procedure. The patient had the opportunityto ask questions concerning the planned procedure. The patient freelyconsents to the planned procedure.Anticipated Surgical Procedure/ CPT Code: Examination Under Anesthesia,Hemorrhoidectomy - 54922-441Dohrckiqukr Anesthetic: GeneralPatient weight: not currently . BMI: There is no height orweight on file to calculate BMI.Planned antibiotic: Cefotetan 1gm IVPB recreational specialist to ORSCDs needed - YesAssistant Needed - NoDiagnoses : (K64.5) External hemorrhoid, thrombosed (primary encounterdiagnosis)Return to Clinic: The patient is instructed to follow-up with me 1 week postoperatively. HERIBERTO Gutierrez have reviewed the above history and physical exam.There have been no significant changes Letty Curry MD08/16/2016Encounter Number: [id number] Status:Closed by LETTY CURRY MD on 08/18/16 PROGRESS Observed: 08/16/2016 Status: COMPLETED Source: [place] 10:47 AM [facility] REPOSITORY HNO ID: [id number]: Liliana Dominique) GrafService: (none) Author Type: Physician AssistantType: Progress NotesFiled: 08/16/2016 10:49 AMNote Text:HISTORY AND PHYSICALDana Reid Tang1984REFERRING PHYSICIAN: SelfCHIEF COMPLAINT: Thrombosed hemorrhoidHPI: Citlali is a 30 year old female with a complaint of a thrombosedhemorrhoid. she has noticed anal pain and swelling for the past day.she denies drainage from the thrombosed hemorrhoid. Citlali NOTES a priorhistory of thrombosed hemorrhoids and states this feels just like when shehad had these in the past. she denies a history of constipation andstraining.SIGNIFICANT MEDICAL PROBLEMS:PAST MEDICAL HISTORYDiagnosis Date- Anemia- Chlamydia 2003,2008,2013 x3- Herpes simplex virus (HSV) infection- Hypoglycemia 08/12/13- Kidney stone- Marijuana use- Mental disorder- RLS (restless legs syndrome) Amezquita- Seizure Overdose of Wellbutrin- Thrombosed hemorrhoids 2014OPERATIONS: PAST SURGICAL HISTORYNo date : DELIVERY ONLY Comment: , low subvldux64/23/2017: DELIVERY ONLY N/: GASTRIC BYPASS HXNo date: PAST SURGICAL HISTORY OF Comment: kidney stoneCURRENT MEDICATIONS:Current Outpatient Prescriptions:HYDROcodone-acetaminophen (NORCO) 5-325 mg per tablet Take 1 tablet bymouth every 6 hours as needed for Pain. Disp: 3 tablet Rfl: 0Ferrous Gluconate 324 mg (36 mg iron) tab Take 1 tablet by mouth twicedaily with meals. Disp: 60 tablet Rfl: 5cyanocobalamin (VITAMIN B-12) 1,000 mcg/mL soln Inject 1 mLintramuscularly once every month. 1 DOSE MONTHLY Disp: 1 mL Rfl: 11Etonogestrel-Ethinyl Estradiol (NUVARING) 0.12-0.015 mg/24 hr vaginal ringUse 1 Each vaginally as directed. 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 *Social History Main Topics Smoking status: Former Smoker Packs/day: 0.50 Years: 13.00 Types: Cigarettes Quit date: 03/15/2016 Alcohol use: Yes Comment: social, not while Drug use: No Comment: Hx marijuana use Sexual activity: Yes control/protection: Other Comment: depo provera, mirena removed FAMILY HISTORY:FAMILY HISTORY Alcohol/Drug Father Hypertension Maternal Grandfather Comment: CHF Heart Maternal Grandfather Comment: [place] Cancer Paternal Grandmother Comment: throat cancer Stroke Paternal GrandmotherREVIEW OF SYMPTOMS: The review of systems data was entered by the nurse and reviewed by Elizabeth are no exam notes on file for this visit.PHYSICAL EXAMINATION:General: The patient is 30 year old female, well nourished, well hydratedin no acute distress. The patient is oriented to time, place, and person.VITALS: not currently . There is no height or weight on fileto calculate BMI.HEENT: exam deferredRespiratory: exam deferredCardiac : exam deferred.Abdominal exam: exam deferredRectal exam: Large prolapsing thrombosed hemorrhoids in right upperquadrant. Digital rectal exam - deferredExtremities : exam deferredOther:LABORATORY VALUES: As NotedRADIOLOGIC STUDIES: As NotedPROCEDURE : INCISION AND EVACUATION OF THROMBOSED HEMORRHOIDAfter consent was obtained and the site, person, and procedure verified,the patient`s skin was prepped and draped in the usual fashion. Acombination of Lidocaine and Marcaine was injected into the skin and thehemorrhoidal complex. A linear incision was made over the point ofthrombosis. A small amount of thrombus was evacuated. Pressure was heldto obtain hemostasis. The patient tolerated the procedure well.IMPRESSION: STATUS POST INCISION AND EVACUATION OF THROMBOSED HEMORRHOIDPLAN: Citlali is instructed to perform sitz baths twice a day and aftereach bowel movement. Place dibucaine ointment on anus as needed andbefore all bowel movements. Keep stools soft and avoid straining ifpossible.Some bleeding from the incision site where the blood clot was removed iscommon. If bleeding presists, press on the area with a clean gauze ortowel.If pain increases, a new thrombosed hemorrhoid may be present. Returnimmediately.Return if symptoms fail to improve.Diagnoses: (K64.5) External hemorrhoid, thrombosed (primary encounterdiagnosis) BRYANT Grace Observed: 08/16/2016 Status: COMPLETED Source: [place] 12:00 AM [facility] REPOSITORY Operative Note (Enc) (GENSWS) ---------Progress Notes:Letty Curry MD 08/23/2016 7:26 AM SignedOPERATIVE NOTATION FOR [facility] SURGICAL PROCEDURE.August 16, 2016Citlali Beckwith 1985 [id number] femalePROCEDURE: Examination Under Anesthesia, Hemorrhoidectomy - [id number]: Greg Curry M.D. FACS PHOTOGRAPHIC DOUBLE: NoneDEPT: CHUCHO PROVIDER: P38 =Letty Curry MD POS:3O8=[id number]: (K64.5) External hemorrhoid, thrombosed (primary encounterdiagnosis)ASA CLASS: 2E - mild emergencyFINDINGS:COMPLICATIONS: NonePMHx -PAST MEDICAL HISTORYDiagnosis Date- Anemia- Chlamydia 2003,2008,2013 x3- Herpes simplex virus (HSV) infection- Hypoglycemia 08/12/13- Kidney stone- Marijuana use- Mental disorder- RLS ( restless legs syndrome) Amezquita- Seizure Overdose of Wellbutrin- Thrombosed hemorrhoids 2013COMORBIDITIES - NonePost Op Occurrences - NoneWound Classification - ContaminatedOperative note dictated in the [facility] dictation system.Letty Curry MDEncounter Status:Closed by LETTY CURRY MD on 08/23/16Encounter Number: [id number] CNOV Observed: 08/15/2016 Status: COMPLETED Source: [place] 3:30 PM [facility] REPOSITORY Office Visit (GENSWS) ---------CITLALI BECKWITH ([id number]) 1985 [facility] Department08/15/16 3:30 PM LILIANA PEREYRA) GENSWS During your visit today, we recorded the following information about you:Liliana Pereyra PA-C 08/15/2016 3: 47 PM Signed-Follow up in 1 week or sooner if symptoms worsenThe following instructions are important for you related to your office visittoday with the [facility] General Surgeons.Instructions After THROMBOSED HEMORRHOID IANDamp;DSTATUS POST INCISION AND EVACUATION OF THROMBOSED HEMORRHOIDDana is instructed to perform sitz baths twice a day and after each bowelmovement. Place dibucaine ointment on anus as needed and before all bowelmovements. Keep stools soft and avoid straining if possible.Some bleeding from the incision site where the blood clot was removed iscommon. If bleeding presists, press on the area with a clean gauze or towel.If pain increases, a new thrombosed hemorrhoid may be present. Returnimmediately.Return if symptoms fail to improve.If you note any additional difficulties, questions, or concerns, you shouldcontact our office immediately @ [phone] and ask to be [facility].Liliana Pereyra PA-C 08/16/2016 10:49 AM SignedHISTORY AND PHYSICALDana Reid Beckwith1985REFERRING PHYSICIAN: SelfCHIEF COMPLAINT: Thrombosed hemorrhoidHPI: Citlali is a 30 year old female with a complaint of a thrombosed hemorrhoid.she has noticed anal pain and swelling for the past day. she deniesdrainage from the thrombosed hemorrhoid. Citlali NOTES a prior history ofthrombosed hemorrhoids and states this feels just like when she had had thesein the past. she denies a history of constipation and straining.SIGNIFICANT MEDICAL PROBLEMS:PAST MEDICAL HISTORYDiagnosis Date- Anemia- Chlamydia 2003,2008,2013 x3- Herpes simplex virus (HSV) infection- Hypoglycemia 08/12/13- Kidney stone- Marijuana use- Mental disorder- RLS (restless legs syndrome) Amezquita- Seizure Overdose of Wellbutrin- Thrombosed hemorrhoids 2014OPERATIONS: PAST SURGICAL HISTORYNo date: DELIVERY ONLY Comment: , low /23/2017: DELIVERY ONLY N/A1: GASTRIC BYPASS HXNo date: PAST SURGICAL HISTORY OF Comment: kidney stoneCURRENT MEDICATIONS: Current Outpatient Prescriptions:HYDROcodone-acetaminophen (NORCO) 5-325 mg per tablet Take 1 tablet by mouthevery 6 hours as needed for Pain. Disp: 3 tablet Rfl: 0Ferrous Gluconate 324 mg (36 mg iron) tab Take 1 tablet by mouth twice dailywith meals. Disp: 60 tablet Rfl: 5cyanocobalamin ( VITAMIN B-12) 1,000 mcg/mL soln Inject 1 mL intramuscularlyonce every month. 1 DOSE MONTHLY Disp: 1 mL Rfl: 11Etonogestrel-Ethinyl Estradiol (NUVARING) 0.12-0.015 mg/24 hr vaginal ring Use1 Each vaginally as directed. 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 *Social History Main Topics Smoking status: Former Smoker Packs/day: 0.50 Years: 13.00 Types: Cigarettes Quit date: 03/15/2016 Alcohol use: Yes Comment: social, not while Drug use: No Comment: Hx marijuana use Sexual activity: Yes control/ protection: Other Comment: aaron ford removed 09/29/07FAMILY HISTORY:FAMILY HISTORY Alcohol/Drug Father Hypertension Maternal Grandfather Comment: CHF Heart Maternal Grandfather Comment: [place] Cancer Paternal Grandmother Comment: throat cancer Stroke Paternal GrandmotherREVIEW OF SYMPTOMS: The review of systems data was entered by the nurse and reviewed by Elizabeth are no exam notes on file for this visit.PHYSICAL EXAMINATION:General: The patient is 30 year old female , well nourished, well hydrated inno acute distress. The patient is oriented to time, place, and person.VITALS: not currently . There is no height or weight on file tocalculate BMI.HEENT: exam deferredRespiratory: exam deferredCardiac: exam deferred.Abdominal exam: exam deferredRectal exam: Large prolapsing thrombosed hemorrhoids in right upper quadrant.Digital rectal exam - deferredExtremities: exam deferredOther:LABORATORY VALUES: As NotedRADIOLOGIC STUDIES: As NotedPROCEDURE: INCISION AND EVACUATION OF THROMBOSED HEMORRHOIDAfter consent was obtained and the site, person, and procedure verified, thepatient`s skin was prepped and draped in the usual fashion. A combination ofLidocaine and Marcaine was injected into the skin and the hemorrhoidal complex. A linear incision was made over the point of thrombosis. A small amount ofthrombus was evacuated. Pressure was held to obtain hemostasis. The patienttolerated the procedure well.IMPRESSION: STATUS POST INCISION AND EVACUATION OF THROMBOSED HEMORRHOIDPLAN: Citlali is instructed to perform sitz baths twice a day and after eachbowel movement. Place dibucaine ointment on anus as needed and before allbowel movements. Keep stools soft and avoid straining if possible.Some bleeding from the incision site where the blood clot was removed iscommon. If bleeding presists , press on the area with a clean gauze or towel.If pain increases, a new thrombosed hemorrhoid may be present. Returnimmediately.Return if symptoms fail to improve.Diagnoses: (K64.5) External hemorrhoid, thrombosed (primary encounterdiagnosis) MARCI Grace-CReferring Provider: SELF [200]Allergies As of Date: 08/15/2016 Noted Allergy ReactionADHESIVE TAPE (ROSINS) 08/14/2013 2 - RashGABAPENTIN 08/15 5 - IntoleranceLATEX 07/09/2007 2 - RashWELLBUTRIN ( BUPROPION HCL) 11/28/2006 Comments: SeizureDate Reviewed: 05/31/2016Reviewed by: Mirian Campbell LPN - Fully AssessedReason for Visit: Hemorrhoids [42306]Primary Visit Diagnosis:External hemorrhoid, thrombosed [K64.5]Order(s):HYDROcodone-acetaminophen (NORCO) 5-325 mg per tabletTake 1 tablet by mouth every 6 hours as needed for Pain.Disp: 3 tabletRfl: 0Prescriptions as of 08/15/2016 Sig: HYDROCODONE 5 MG-ACETAMINOPHE* Take 1 tablet by mouth every * FERROUS GLUCONATE 324 MG (36 * Take 1 tablet by mouth twice * CYANOCOBALAMIN (VIT B-12) 1,0* Inject 1 mL intramuscularly o* ETONOGESTREL-ETHINYL ESTRADIO* Use 1 Each vaginally as direc*Problem List As Of Date 08/15/2016 Noted Resolved ADJUSTMENT REACTION NOS [F43.20 ] INVALID FOR*07/14/2007 Unspecified Seborrheic Dermatitis [L21.9] INVALID FOR* Attention deficit disorder [F98.8] INVALID FOR* More... Adjustment Disorder with Depressed Mood [F43.21]INVALID FOR* Tobacco use disorder [F17.200] INVALID FOR*09/13/2015 More... [facility]*INVALID FOR*2015 Class: Chronic More... Routine gynecological examination [Z01.419] INVALID FOR*2015 Class: Chronic More... Morbid obesity (HCC) [E66.01] INVALID FOR *09/13/2015 Insomnia [G47.00] INVALID FOR*09/13/2015 Thrombosed external hemorrhoid [K64.5] INVALID FOR*09/13/2015 Recurrent UTI (urinary tract infection ) complic*INVALID FOR* More... Kidney stones [N20.0] INVALID FOR* Marijuana abuse [F12.10] INVALID FOR* History of gastric bypass [ Z98.890] INVALID FOR* History of delivery, currently pregnan*INVALID FOR*05/07 More... History of recurrent UTI (urinary tract infecti*INVALID FOR* More... History of herpes genitalis [Z86.19] INVALID FOR* More... History of depression [Z86.59] INVALID FOR* More... Tobacco use in [O99.330] INVALID FOR* More... History of marijuana use [Z87.898] INVALID FOR* More... H/O macrosomia in in prior , cu*INVALID FOR* More... Patient requested diagnostic testing [ Z01.89] INVALID FOR*11/21/2015 More... History of kidney stones [Z87.442] INVALID FOR*09/13/2015 Trichomonal vaginitis during in secon*INVALID FOR* More... Urgency of urination [R39.15] INVALID FOR* Frequency of micturition [R35.0] INVALID FOR* UTI (urinary tract infection) in , ant*INVALID FOR*02/16/2016 Other instructions from your clinician: -Follow up in 1 week or sooner if symptoms worsen The following instructions are important for you related to your office visit today with the [facility] General Surgeons. Instructions After THROMBOSED HEMORRHOID IANDD STATUS POST INCISION AND EVACUATION OF THROMBOSED HEMORRHOID Citlali is instructed to perform sitz baths twice a day and after each bowel movement. Place dibucaine ointment on anus as needed and before all bowel movements. Keep stools soft and avoid straining if possible. Some bleeding from the incision site where the blood clot was removed is common. If bleeding presists, press on the area with a clean gauze or towel. If pain increases, a new thrombosed hemorrhoid may be present. Return immediately. Return if symptoms fail to improve. If you note any additional difficulties, questions, or concerns, you should contact our office immediately @ [phone] and ask to be transferred to the General Surgery department.Prescriptions ordered this encounter Disp Refills Start End HYDROCODONE 5 MG-ACETAMINOPHEN 325 M* 3 ta* 0 2016 Class: Print RX Route: ORAL Sig: Take 1 tablet by mouth every 6 hours as needed for Pain.Medications Discontinued During This Encounter buPROPion SR (WELLBUTRIN SR) 150 mg * 60 t* 2 06/12/2016 08/15/2016 Route: ORAL Sig: Take 1 tablet by mouth twice daily. Disc: Reason for discontinue is not on file. gabapentin (NEURONTIN) 300 mg capsule 180 * 1 05/31/201608/15 Sig: Take 1 to 2 capsules by mouth daily at bedtime. Disc: Reason for discontinue is not on file. Status:Closed by LILIANA PEREYRA PA-C on 08/16/16 OBSOLETE Observed: 06/12/2016 Status: COMPLETED Source: [place] 12:00 AM [facility] REPOSITORY Refill (WOOB) -------CITLALI BECKWITH ([id number]) 1985 FDate Time Provider Department06/12/16 HILARIO CAMPBELL During your visit today, we recorded the following information about you:Kami Broderick RN 06/12/2016 10: 26 AM SignedPharmacy request for medication is as follows:Note Allergy Alert Patient last refill 3-17-60Jbrtcxr Prescriptions Disp Refills BUPROPION HCL SR 150 MG TABLET, SUSTAINED-RELEASE 60 tablet 2 Sig: Take 1 tablet by mouth twice daily. OSCAR: NoPrescription(s) as above. Please process accordingly.Kami Broderick RNAllergies As of Date: 06/12/2016 Noted Allergy ReactionADHESIVE TAPE (ROSINS) 08/14/2013 2 - RashLATEX 07/09/2007 2 - RashWELLBUTRIN (BUPROPION HCL) 11/28/2006 Comments : SeizureDate Reviewed: 05/31/2016Reviewed by: Mirian Quinn ADVERTISING EXECUTIVE - Fully AssessedReason for Visit: Refill Request [94]Order(s):buPROPion SR (WELLBUTRIN SR) 150 mg 12 hr tabletTake 1 tablet by mouth twice daily.Disp: 60 tabletRfl: 2Prescriptions as of 06/12/2016 Sig : BUPROPION HCL SR 150 MG TABLE* Take 1 tablet by mouth twice * FERROUS GLUCONATE 324 MG ( 36 * Take 1 tablet by mouth twice * GABAPENTIN 300 MG CAPSULE Take 1 to 2 capsules by mouth* CYANOCOBALAMIN (VIT B-12) 1,0* Inject 1 mL intramuscularly o* ETONOGESTREL- ETHINYL ESTRADIO* Use 1 Each vaginally as direc*Problem List As Of Date 06/12/2016 Noted Resolved ADJUSTMENT REACTION NOS [F43.20] INVALID FOR*2007 Unspecified Seborrheic Dermatitis [L21.9] INVALID FOR* Attention deficit disorder [ F98.8] INVALID FOR* More... Adjustment Disorder with Depressed Mood [F43.21] INVALID FOR* Tobacco use disorder [F17.200] INVALID FOR*09/13/2015 More... [facility]*INVALID FOR*09/13/2015 Class: Chronic More... Routine gynecological examination [Z01.419] INVALID FOR*09/13/2015 Class: Chronic More... Morbid obesity (HCC) [E66.01] INVALID FOR*09/13/2015 Insomnia [G47.00] INVALID FOR*09/13/2015 Thrombosed external hemorrhoid [ K64.5] INVALID FOR*09/13/2015 Recurrent UTI (urinary tract infection) complic* INVALID FOR* More... Kidney stones [N20.0] INVALID FOR*09/13/2015 Marijuana abuse [F12.10] INVALID FOR* History of gastric bypass [Z98.890] INVALID FOR* History of delivery, currently pregnan*INVALID FOR*05/07/2016 More... History of recurrent UTI (urinary tract infecti*INVALID FOR* More... History of herpes genitalis [Z86.19] INVALID FOR* More... History of depression [Z86.59] INVALID FOR* More... Tobacco use in [O99.330] INVALID FOR* More... History of marijuana use [Z87.898] INVALID FOR* More... H/O macrosomia in in prior , cu*INVALID FOR* More... Patient requested diagnostic testing [ Z01.89] INVALID FOR*11/21/2015 More... History of kidney stones [Z87.442] INVALID FOR*09/13/2015 Trichomonal vaginitis during in secon*INVALID FOR* More... Urgency of urination [R39.15] INVALID FOR* Frequency of micturition [R35.0] INVALID FOR* UTI (urinary tract infection) in , ant*INVALID FOR*2015Prescriptions ordered this encounter Disp Refills Start End BUPROPION HCL SR 150 MG TABLET,SUSTA* 60 t* 2 06/12/2016 Route: ORAL Sig: Take 1 tablet by mouth twice daily. Status:Closed by HILARIO CAMPBELL MD on 06/12/16 IRON AND TIBC Collected: 05/31/2016 Status: F Source: [place] 4:03 [facility] REPOSITORY TYPE CODE TESTS RESULT OUT OF REFERENCE UNITS RANGE LAB IRN Low 41-186 ug/dL Iron 19 LAB TIBC High 232-386 ug/dL TIBC 509 LAB SAT Low 15-57 % Transferrin 4 Saturatn Performed By: #### IRON, B12, SERFOL, CBCDIF ####[facility] [id number] [place], [place] [id number] VITAMIN B12 Collected: 05/31/2016 Status: F Source: [place] 4:03 [facility] REPOSITORY TYPE CODE TESTS RESULT OUT OF REFERENCE UNITS RANGE LAB B12 211-946 pg/mL Vitamin 436 B12 Performed By: #### IRON, B12, SERFOL, CBCDIF ####[facility] [id number] [place], [place] [phone] FOLATE, SERUM Collected: 05/31/2016 Status: F Source: [place] 4:03 [facility] REPOSITORY TYPE CODE TESTS RESULT OUT OF REFERENCE UNITS RANGE LAB SERFOL >4.7 ng/mL 16.0 Folate, Serum Performed By: #### IRON, B12, SERFOL, CBCDIF ####[facility] [place], [place] [phone] CBC AND DIFFERENTIAL Collected: 05/31/2016 Status: F Source: [place] 4:03 PM [facility] REPOSITORY TYPE CODE TESTS RESULT OUT OF REFERENCE UNITS RANGE LAB WBC 3.70-11.00 k/uL WBC 5.77 LAB RBC 3.90-5.20 m/uL RBC 4.47 LAB HGB Low 11.5-15.5 g/dL Hemoglobin 10.4 LAB HCT Low 36.0-46.0 % Hematocrit 35.7 LAB MCV Low 80.0-100.0 fL MCV 79.9 LAB MCH Low 26.0-34.0 pG MCH 23.3 LAB MCHC Low 30.5-36.0 g/dL MCHC 29.1 LAB RDWCV High 11.5-15.0 % RDW-CV 15.1 LAB PLTCT 150-400 k/uL Platelet 339 Count LAB MPV 9.0-12.7 fL MPV 10.0 LAB ANEUT % Neut% 57.7 LAB AANEUT 1.45-7.50 k/uL Abs Neut 3.33 LAB ALYMP % Lymph% 32.6 LAB AALYMP 1.00-4.00 k/uL Abs Lymph 1.88 LAB AMONO % [place]% 5.9 LAB AAMONO 0.00-0.86 k/uL Abs [place] 0.34 LAB AEOS % Eosin% 3.5 LAB AAEOS 0.00-0.45 k/uL Abs Eosin 0.20 LAB ABASO % Baso% 0.3 LAB AABASO 0.00-0.10 k/uL Abs Baso 0.02 LAB DTYP DTYPE Auto Diff Performed By: #### IRON, B12, SERFOL, CBCDIF ####[facility] [place], [place] [phone] PROGRESS Observed: 05/31/2016 Status: COMPLETED Source: [place] 3:23 PM [facility] REPOSITORY HNO ID: [id number]: Minnie Palomares (Bryant) BartonService: (none)Author Type: Physician AssistantType: Progress NotesFiled: 05/31/2016 3:45 PMNote Text:Patient presents with:Medication Follow-up: would like to go back on gabaentin and B12 injHPI: Patient presents today for office visit.30 y/o female here for renewal medication RLS: gabapentin before bed.MEDICATIONS:Current Outpatient Prescriptions:Etonogestrel-Ethinyl Estradiol (NUVARING) 0.12-0.015 mg/24 hr vaginal ringUse 1 Each vaginally as directed. use one ring for 3-4 weeks, remove for4- 7 days and repeatCYANOCOBALAMIN, VITAMIN B-12, (SHEET ROCK HANGER-B12 INJECTION) by INJECTION(UNSPECIFIEDPARENTERAL ROUTES) route.No current facility-administered medications for this visit.ALLERGIES:ALLERGIESAllergen Reactions- Adhesive Tape (Maite* Rash- Latex Rash- Wellbutrin [Bupropi* SeizurePAST MEDICAL HISTORYNo date: Dyakwc6190,2008,2013: Chlamydia Comment: x3No date: Herpes simplex virus (HSV) infection08/12/13: HypoglycemiaNo date: Kidney stoneNo date: Marijuana useNo date: Mental disorderNo date: RLS (restless legs syndrome) Comment: Janak date: Seizure Comment: Overdose of [id number]: Thrombosed hemorrhoids PAST SURGICAL HISTORYNo date: DELIVERY ONLY Comment: , low wivyijzt28/23/2017: DELIVERY ONLY N/: GASTRIC BYPASS HXNo date : PAST SURGICAL HISTORY OF Comment: kidney stoneFAMILY HISTORY Alcohol/Drug Father Hypertension Maternal Grandfather Comment: CHF Heart Maternal Grandfather Comment: [place] Cancer Paternal Grandmother Comment: throat cancer Stroke Paternal Grandmother Social History Marital status: Spouse name: Years of education: 12 Number of children: 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 *Social History Main Topics Smoking status: Former Smoker Packs/day: 0.50 Years: 13.00 Types: Cigarettes Quit date: 03/15/2016 Alcohol use: Yes Comment: social, not while Drug use: No Comment: Hx marijuana use Sexual activity: Yes control/protection: Other Comment: depo provera, mirena removed Reviewed past medical history, surgical history, family history and socialhistory today.HEALTH MAINTENANCE:Reviewed health maintenance issues today.ONE PNEUMOVAX PRIOR TO AGE 64 due on 12/30/2003HPV EVERY 5 YEARS due on 2014VITALS:BP 112/72 Pulse 68 Resp 12 Wt 93 kg (205 lb) LMP 05/30/2016 BMI34.11 kg/m2PE:General:awake and alert today. Speech appropriate. OrientedSkin warm, dry, pink to lips and nailbeds.Neck:supple. No thyromegaly or masses. Carotids show no bruitsbilaterallyLungs: breathing comfortably. No accessory muscle use. No rales or rhonchiHeart: RRR, s1 and s2 are normal. No new murmur noted.Assessment: Restless leg syndromeOther vitamin b12 deficiency anemia (primary encounter diagnosis) History of gastric bypassPlan:Office Visit on 05/31/16-VITAMIN B12 BLOOD-CBC + DIFF-FOLATE SERUM-IRON + TIBCThe following approved medication requests have been transmittedelectronically.Signed Prescriptions Disp Refills gabapentin ( NEURONTIN) 300 mg capsule 180 capsule 1 Sig: Take 1 to 2 capsules by mouth daily at bedtime. OSCAR: No cyanocobalamin (VITAMIN B-12) 1,000 mcg/mL soln 1 mL 11 Sig: Inject 1 mL intramuscularly once every month. 1 DOSE MONTHLYGreg Blum orders and/or patient instructions. Patient ( or Guardian) expressedunderstanding of instructions on review.Gosia Blum documentation for this note was completed by Mirian Campbell LPN actingas scribe for Minnie Selby PA-C. May 31, 2016 3:23 PM.Modified Minnie Selby PA-C May 31, 2016 3:44 PM. CNOV Observed: 05/31/2016 Status: COMPLETED Source: [place] 3:20 PM [facility] REPOSITORY Office Visit (FAMPWS) ---------CITLALI BECKWITH ([id number]) 1985 FDate Time Provider Department05/31/16 3:20 PM Minnie SELBY) FAMPWS During your visit today, we recorded the following information about you: Pulse Respiration Blood pressure Weight 68/minute 12/minute 112/72 93 kg Last Period 05/30/16M Ave Selby PA-C 05/31/2016 3:45 PM SignedPatient presents with:Medication Follow-up: would like to go back on gabaentin and B12 injHPI: Patient presents today for office visit.30 y/o female here for renewal medication RLS: gabapentin before bed.MEDICATIONS:Current Outpatient Prescriptions:Etonogestrel-Ethinyl Estradiol (NUVARING) 0.12-0.015 mg/24 hr vaginal ring Use1 Each vaginally as directed. use one ring for 3-4 weeks, remove for 4-7 daysand repeatCYANOCOBALAMIN, VITAMIN B-12, (SHEET ROCK HANGER-B12 INJECTION) by INJECTION( UNSPECIFIEDPARENTERAL ROUTES) route.No current facility-administered medications for this visit.ALLERGIES: ALLERGIESAllergen Reactions- Adhesive Tape (Maite* Rash- Latex Rash- Wellbutrin [ Bupropi* SeizurePAST MEDICAL HISTORYNo date: Tyaxyf8983,2008,2013: Chlamydia Comment: x3No date: Herpes simplex virus (HSV) infection08/12/13: HypoglycemiaNo date: Kidney stoneNo date: Marijuana useNo date: Mental disorderNo date: RLS (restless legs syndrome) Comment: Novak date: Seizure Comment: Overdose of [id number]: Thrombosed hemorrhoids PAST SURGICAL HISTORYNo date: DELIVERY ONLY Comment: , low apxzkhxi61/23/2017: DELIVERY ONLY N/: GASTRIC BYPASS HXNo date: PAST SURGICAL HISTORY OF Comment: kidney stoneFAMILY HISTORY Alcohol/ Drug Father Hypertension Maternal Grandfather Comment: CHF Heart Maternal Grandfather Comment: [place] Cancer Paternal Grandmother Comment: throat cancer Stroke Paternal Grandmother Social History Marital status: Spouse name: Years of education: 12 Number of children: 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 *Social History Main Topics Smoking status: Former Smoker Packs/day : 0.50 Years: 13.00 Types: Cigarettes Quit date: 03/15/2016 Alcohol use: Yes Comment: social, not while Drug use: No Comment: Hx marijuana use Sexual activity: Yes control/protection: Other Comment: depo provera, mirena removed Reviewed past medical history, surgical history, family history and socialhistory today.HEALTH MAINTENANCE:Reviewed health maintenance issues today.ONE PNEUMOVAX PRIOR TO AGE 64 due on 12/30/2003HPV EVERY 5 YEARS due on 2014VITALS:BP 112/72 Pulse 68 Resp 12 Wt 93 kg (205 lb) LMP 05/30 BMI 34.11kg/m2PE:General:awake and alert today. Speech appropriate. OrientedSkin warm, dry, pink to lips and nailbeds.Neck:supple. No thyromegaly or masses. Carotids show no bruits bilaterallyLungs: breathing comfortably. No accessory muscle use. No rales or rhonchiHeart: RRR, s1 and s2 are normal. No new murmur noted.Assessment:Restless leg syndromeOther vitamin b12 deficiency anemia (primary encounter diagnosis)History of gastric bypassPlan:Office Visit on 05/31/16- VITAMIN B12 BLOOD-CBC + DIFF-FOLATE SERUM-IRON + TIBCThe following approved medication requests have been transmitted electronically.Signed Prescriptions Disp Refills gabapentin (NEURONTIN) 300 mg capsule 180 capsule 1 Sig: Take 1 to 2 capsules by mouth daily at bedtime. OSCAR: No cyanocobalamin (VITAMIN B-12) 1,000 mcg/mL soln 1 mL 11 Sig: Inject 1 mL intramuscularly once every month. 1 DOSE MONTHLYGreg Blum orders and/or patient instructions. Patient ( or Guardian) expressedunderstanding of instructions on review.Gosia Blum documentation for this note was completed by Mirian Campbell LPN acting asscribe for Minnie Selby PA-C. May 31, 2016 3:23 PM.Modified Minnie Selby PA-C May 31, 2016 3:44 PM.Referring Provider: SELF [[id number]]Allergies As of Date: 05/31/2016 Noted Allergy ReactionADHESIVE TAPE (ROSINS) 08/14/2013 2 - RashLATEX 07/09/2007 2 - RashWELLBUTRIN (BUPROPION HCL) 2006 Comments: SeizureDate Reviewed: 05/31/2016Reviewed by: Mirian Campbell LPN - Fully AssessedReason for Visit: Medication Follow-up [270] Cmt: would like to go back on gabaentin and B12 injPrimary Visit Diagnosis:Other vitamin B12 deficiency anemia [D51.8 ] Other Visit Diagnoses:Restless leg syndrome [G25.81] History of gastric bypass [Z98.890]Order(s):gabapentin (NEURONTIN) 300 mg capsuleTake 1 to 2 capsules by mouth daily at bedtime.Disp: 180 capsuleRfl: 1 VITAMIN B12 BLOOD [SQB12] Order #: [id number] FUTURE CBC + DIFF [SQCBCDIF] Order #: [id number] FUTURE FOLATE SERUM [ SQSERFOL] Order #: [id number] FUTURE IRON + TIBC [SQIRON] Order #: [id number] FUTURE cyanocobalamin (VITAMIN B-12) 1,000 mcg/mL solnInject 1 mL intramuscularly once every month. 1 DOSE MONTHLYDisp: 1 mLRfl: 11Prescriptions as of 05/31/2016 Sig: ETONOGESTREL-ETHINYL ESTRADIO* Use 1 Each vaginally as direc* GABAPENTIN 300 MG CAPSULE Take 1 to 2 capsules by mouth* CYANOCOBALAMIN (VIT B-12) 1,0* Inject 1 mL intramuscularly o*Medication notes this encounter CYANOCOBALAMIN (VIT B-12) 1,000 MCG/ML INJECTION SOLUTION >> Mirian Campbell LPN 05/31/2016 4:17 PM >> MIRIAN CAMPBELL LPN SatMay 31, 2016 4:17 PM The patient is here for an injection of Vitamin B12 (Cyanocobalamin). Dose: 1000mcg/ml Amount wasted: n/ a. 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 Lot #: [id number] Expiration Date: 08/28/17 The date due for the next injection is 1 month Mirian Campbell LPNProblem List As Of Date 05/31/2016 Noted Resolved ADJUSTMENT REACTION NOS [F43.20] INVALID FOR*07/14/2007 Unspecified Seborrheic Dermatitis [L21.9] INVALID FOR* Attention deficit disorder [F98.8] INVALID FOR* More... Adjustment Disorder with Depressed Mood [F43.21]INVALID FOR* Tobacco use disorder [F17.200] INVALID FOR*09/13/2015 More... Routine general medical examination at [facility]* INVALID FOR*09/13/2015 Class: Chronic More... Routine gynecological examination [Z01.419] INVALID FOR*09/13/2015 Class: Chronic More... Morbid obesity (HCC) [E66.01] INVALID FOR*09/13/2015 Insomnia [G47.00] INVALID FOR* Thrombosed external hemorrhoid [K64.5] INVALID FOR*09/13/2015 Recurrent UTI ( urinary tract infection) complic*INVALID FOR* More... Kidney stones [N20.0] INVALID FOR*09/13/2015 Marijuana abuse [F12.10] INVALID FOR* History of gastric bypass [Z98.890] INVALID FOR* History of delivery, currently pregnan*INVALID FOR*05/07/2016 More... History of recurrent UTI (urinary tract infecti* INVALID FOR* More... History of herpes genitalis [Z86.19] INVALID FOR* More... History of depression [Z86.59] INVALID FOR* More... Tobacco use in [ O99.330] INVALID FOR* More... History of marijuana use [Z87.898] INVALID FOR* More... H/O macrosomia in infant in prior , cu*INVALID FOR* More... Patient requested diagnostic testing [Z01.89] INVALID FOR*11/21/2015 More... History of kidney stones [Z87.442] INVALID FOR*09/13/2015 Trichomonal vaginitis during in secon*INVALID FOR* More... Urgency of urination [R39.15] INVALID FOR* Frequency of micturition [R35.0] INVALID FOR* UTI (urinary tract infection) in , ant*INVALID FOR*02/16/2016Prescriptions ordered this encounter Disp Refills Start End GABAPENTIN 300 MG CAPSULE 180 * 1 05/31/2016 Sig: Take 1 to 2 capsules by mouth daily at bedtime. CYANOCOBALAMIN (VIT B-12) 1,000 MCG/* 1 mL 11 05/31/201605/2017 Class: In Office Route: INTRAMUSCULA Sig: Inject 1 mL intramuscularly once every month. 1 DOSE MONTHLYMedications Discontinued During This Encounter CYANOCOBALAMIN, VITAMIN B-12, (SHEET ROCK HANGER-B* 05/31/2016 Class: Historical Med Route: INJECTION( UNSPECIFIED PARENTERAL ROUTES) Sig: by INJECTION(UNSPECIFIED PARENTERAL ROUTES) route. Disc: Reason for discontinue is not on file. Status:Closed by Minnie MORALES on 05/31/16 PROGRESS Observed: 05/30/2016 Status: COMPLETED Source: [place] 3:27 [facility] REPOS[facility] HNO ID: [id number]: Hilario Wright: (none) Author Type: PhysicianType: Progress NotesFiled: 05/30/2016 3:40 PMNote Text: VISITObstetric History T2 TAB0 SAB0 E0 M0 L2Name of Baby 1 : Fabrice Date: 11/24/02 GA: 40w1d Delivery: , Other Apgar1: Not recorded Apgar5: Not recorded Living: YesName of Baby 2: Fadi Date: 04/23/16 GA: 38w5d Delivery: , LowTransverse Apgar1: 8 Apgar5: 9 Living: YesDaluisana Mathews Tang is a 30 year old year old here for visit.Delivery Summary:repeat c/sPostpartum Recovery:Feeding: Bottle feedingBreastfeeding problems: NoneMenses since delivery: Not resumedMenstrual pattern prior to : Regular periodsIntercourse since delivery: ResumedDepression: denies symptoms of depression. See depressionscreening tab.Emotional support: Yes,Bowel symptoms: Negative for abdominal discomfort, blood in stools orblack stools and change in bowel habitsBladder symptoms: No dysuria, gross hematuria, urinary frequency, urinaryurgency, or incontinenceOther issues: NoneLast Pap: 2016 normalPAST MEDICAL HISTORYNo date: Qkdbel6053,2009,2014: Chlamydia Comment: x3No date: Herpes simplex virus ( HSV) infection08/12/13: HypoglycemiaNo date: Kidney stoneNo date: Marijuana useNo date: Mental disorderNo date: RLS (restless legs syndrome) Comment: NovakNo date: Seizure Comment: Overdose of [id number]: Thrombosed hemorrhoidsPAST SURGICAL HISTORYNo date: DELIVERY ONLY Comment: , low phmydjxv6704/23: DELIVERY ONLY N/A1/2011: GASTRIC BYPASS HXNo date: PAST SURGICAL HISTORY OF Comment: kidney stoneFAMILY HISTORY Alcohol/Drug Father Hypertension Maternal Grandfather Comment: CHF Heart Maternal Grandfather Comment: [place] Cancer Paternal Grandmother Comment: throat cancer Stroke Paternal GrandmotherSOCIAL HISTORY Social History Marital status: Spouse name: Years of education: 12 Number of children: 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 *Social History Main Topics Smoking status: Former Smoker Packs/day: 0.50 Years: 13.00 Types: Cigarettes Quit date: 03/15/2016 Alcohol use: Yes Comment: social, not while Drug use: No Comment: Hx marijuana use Sexual activity: Yes control/protection: Other Comment: depo provera, mirena removed PHYSICAL EXAMINATION:There were no vitals taken for this visit.GENERAL: pleasant, female in no apparent distressHEENT: Normocephalic, atraumatic, mucus membranes moist and no lesionsNECK: Supple, full range of motion, no adenopathy and thyroid normalDERMATOLOGY: Normal, without lesions, non-icteric and non-hirsuteBREAST: soft, non-tender, symmetric, no dominant mass, normalnipple-areolar complex, no lymphadenopathy and no nipple dischargeCHEST: Normal inspiratory effortABDOMEN : soft, non-tender and no masses. No incisional redness, swelling,or drainage.PELVIC: external genitalia normal, normal Bartholin's glands, urethra,[place]'s glands, no vulvar lesions, no cervical lesions, good vaginalsupport, physiologic discharge present, normal appearing perineal body andperianal regionBIMANUAL: uterus normal size, shape and consistency, no adnexal masses andnon-tenderNEURO: alert and oriented x3,exam grossly non-focalEXTREMITIES: normalASSESSMENT AND PLAN:30 year old status post CS with normal course.Contraception plan: nuvaringFollow up: RTC for annual exams and Dary Campbell MD HOSP Observed: 05/30/2016 Status: COMPLETED Source: [place] 3:20 PM [facility] [place] REPOSITORY Office Visit (WOOB) -------CITLALI BECKWITH ([id number]) 1985 FDate Time Provider Department05/30/16 3:20 PM HILARIO CAMPBELL During your visit today, we recorded the following information about you: Blood pressure Weight 108/58 92.6 kgRejaci Campbell MD 05/30/2016 3:40 PM SignedPOSTPARTUM VISITObstetric History T2 TAB0 SAB0 E0 M0 L2Name of Baby 1: Fabrice Date: 11/24/02 GA: 40w1d Delivery: , Other Apgar1: Not recorded Apgar5: Not recorded Living: YesName of Baby 2: Fadi Date: 04/23/16 GA: 38w5d Delivery: , LowTransverse Apgar1: 8 Apgar5: 9 Living: YesDana Reid Tang is a 30 year old year old here for visit.Delivery Summary:repeat c/sPostpartum Recovery: Feeding: Bottle feedingBreastfeeding problems: NoneMenses since delivery: Not resumedMenstrual pattern prior to : Regular periodsIntercourse since delivery: ResumedDepression: denies symptoms of depression. See depression screeningtab.Emotional support: Yes, Bowel symptoms: Negative for abdominal discomfort, blood in stools or blackstools and change in bowel habitsBladder symptoms: No dysuria, gross hematuria, urinary frequency, urinaryurgency, or incontinenceOther issues: NoneLast Pap: 2016 normalPAST MEDICAL HISTORYNo date: Mlfmiv3660,2008,2013: Chlamydia Comment: x3No date: Herpes simplex virus ( HSV) infection08/12/13: HypoglycemiaNo date: Kidney stoneNo date: Marijuana useNo date: Mental disorderNo date: RLS (restless legs syndrome) Comment: Novak date: Seizure Comment: Overdose of [id number]: Thrombosed hemorrhoidsPAST SURGICAL HISTORYNo date : DELIVERY ONLY Comment: , low zvnaioam80/23/2017: DELIVERY ONLY N/: GASTRIC BYPASS HXNo date: PAST SURGICAL HISTORY OF Comment: kidney stoneFAMILY HISTORY Alcohol/Drug Father Hypertension Maternal Grandfather Comment: CHF Heart Maternal Grandfather Comment: [place] Cancer Paternal Grandmother Comment: throat cancer Stroke Paternal GrandmotherSOCIAL HISTORY Social History Marital status: Spouse name: Years of education: 12 Number of children: 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 *Social History Main Topics Smoking status: Former Smoker Packs/day: 0.50 Years: 13.00 Types: Cigarettes Quit date: 2015 Alcohol use: Yes Comment: social, not while Drug use: No Comment: Hx marijuana use Sexual activity: Yes control/protection: Other Comment: depo provera, mirena removed 09/29/07PHYSICAL EXAMINATION:There were no vitals taken for this visit.GENERAL: pleasant, female in no apparent distressHEENT: Normocephalic, atraumatic, mucus membranes moist and no lesionsNECK: Supple, full range of motion, no adenopathy and thyroid normalDERMATOLOGY: Normal, without lesions, non-icteric and non-hirsuteBREAST: soft, non-tender, symmetric , no dominant mass, normal nipple-areolarcomplex, no lymphadenopathy and no nipple dischargeCHEST: Normal inspiratory effortABDOMEN: soft, non-tender and no masses. No incisional redness, swelling , ordrainage.PELVIC: external genitalia normal, normal Bartholin's glands, urethra, [place]'sglands, no vulvar lesions, no cervical lesions, good vaginal support,physiologic discharge present, normal appearing perineal body and perianalregionBIMANUAL: uterus normal size, shape and consistency, no adnexal masses andnon-tenderNEURO: alert and oriented x3,exam grossly non- focalEXTREMITIES: normalASSESSMENT AND PLAN:30 year old status post CS with normal course.Contraception plan: nuvaringFollow up: RTC for annual exams and PRNREse Carballo MD 05/30/2016 3:41 PM SignedAddended by: HILARIO CAMPBELL MD on: 05/30/2016 03:41 PM Modules accepted: Luisa Campbell MD 05/30/2016 3:42 PM SignedAddended by: HILARIO CAMPBELL MD on: 05/30/2016 03:42 PM Modules accepted: OrdersReferring Provider: HILARIO CAMPBELL [[id number]]Allergies As of Date: 05/30/2016 Noted Allergy ReactionADHESIVE TAPE (ROSINS) 08/14/2013 2 - RashLATEX 07/09/2007 2 - RashWELLBUTRIN (BUPROPION HCL) 11/28/2006 Comments: SeizureDate Reviewed: 05/30/2016Reviewed by: Addis Song Ma - Fully AssessedPrimary Visit Diagnosis: care and examination [Z39.2]Order(s):Etonogestrel-Ethinyl Estradiol (NUVARING) 0.12- 0.015 mg/24 hr vaginal ringUse 1 Each vaginally as directed. use one ring for 3-4 weeks, remove for 4-7 days and repeatDisp: 1 EachRfl: 12Prescriptions as of 05/30/2016 Sig: ETONOGESTREL-ETHINYL ESTRADIO* Use 1 Each vaginally as direc* SHEET ROCK HANGER-B12 INJECTION by INJECTION(UNSPECIFIED PARE*Medication notes this encounter RANITIDINE 300 MG TABLET >> Addis Song Ma 05/30/2016 3:31 PM >> ADDIS SONG MA SatMay 30, 2016 3:31 PM Not taking PROMETHAZINE 25 MG TABLET >> Addis Song Ma 05/30/2016 3:30 PM >> ADDIS SONG MA SatMay 30, 2016 3:30 PM Not takingProblem List As Of Date 05/30/2016 Noted Resolved ADJUSTMENT REACTION NOS [F43.20] INVALID FOR*07/14/2007 Unspecified Seborrheic Dermatitis [L21.9] INVALID FOR* Attention deficit disorder [F98.8] INVALID FOR* More... Adjustment Disorder with Depressed Mood [F43.21]INVALID FOR* Tobacco use disorder [F17.200] INVALID FOR*09/13/2015 More... [facility]*INVALID FOR*2015 Class: Chronic More... Routine gynecological examination [Z01.419] INVALID FOR *09/13/2015 Class: Chronic More... Morbid obesity (HCC) [E66.01] INVALID FOR*09/13/2015 Insomnia [G47.00] INVALID FOR*09/13/2015 Thrombosed external hemorrhoid [K64.5] INVALID FOR*09/13/2015 Recurrent UTI (urinary tract infection) complic*INVALID FOR* More... Kidney stones [N20.0] INVALID FOR*09/13/2015 Marijuana abuse [F12.10] INVALID FOR* History of gastric bypass [Z98.890] INVALID FOR* History of delivery, currently pregnan*INVALID FOR*05/07/2016 More... History of recurrent UTI (urinary tract infecti* INVALID FOR* More... History of herpes genitalis [Z86.19] INVALID FOR* More... History of depression [Z86.59] INVALID FOR* More... Tobacco use in [ O99.330] INVALID FOR* More... History of marijuana use [Z87.898] INVALID FOR* More... H/O macrosomia in in prior , cu*INVALID FOR* More... Patient requested diagnostic testing [Z01.89] INVALID FOR*11/21/2015 More... History of kidney stones [Z87.442] INVALID FOR*09/13/2015 Trichomonal vaginitis during in secon*INVALID FOR* More... Urgency of urination [R39.15] INVALID FOR* Frequency of micturition [R35.0] INVALID FOR* UTI (urinary tract infection) in , ant*INVALID FOR*02/16/2016Prescriptions ordered this encounter Disp Refills Start End ETONOGESTREL-ETHINYL ESTRADIOL 0.12 * 1 Ea* 12 05/30/2016 Class: Print RX Route: VAGINAL Sig: Use 1 Each vaginally as directed. use one ring for 3-4 weeks, remove for 4-7 days and repeatMedications Discontinued During This Encounter buPROPion SR (WELLBUTRIN SR) 150 mg * 60 t* 2 02/13/2016 05/30/2016 Route: ORAL Sig: Take 1 tablet by mouth twice daily. Disc: Reason for discontinue is not on file. Ranitidine HCl ( ZANTAC) 300 mg tablet 30 t* 5 01/30/2016 05/30/2016 Route: ORAL Sig: Take 1 tablet by mouth daily at bedtime. Patient taking differently: Take 300 mg by mouth at bedtime as needed. Disc: Reason for discontinue is not on file. promethazine (PHENERGAN) 25 mg tablet 30 t* 1 10/13/2015 05/30/2016 Route: ORAL Sig: Take 0.5-1 tablets by mouth every 6 hours as needed. Disc: Reason for discontinue is not on file. Szdqzdnk-Sd-Vyr-Fe-FA tab 05/30/2016 Class: Historical Med Route: ORAL Sig: Take 1 tablet by mouth. Disc: Reason for discontinue is not on file. acyclovir (ZOVIRAX) 400 mg tablet 60 t* 1 03/29/2016 05/30/2016 Route: ORAL Sig: Take 1 tablet by mouth twice daily. Disc: Reason for discontinue is not on file.Disposition: Return in about 1 year ( around 05/30/2017).Follow-up and Disposition History RecordedLetter Femi Campbell M.D.[facility] [id number] [place] [id number]: [phone]: Citlali BeckwithDOB: 1985To Whom It May Concern:Citlali has been under my care and may return to work with no restrictions on06/04/2016SinHilario alaniz M.D. Status:Closed by HILARIO CAMPBELL MD on 05/30/16 PROGRESS Observed: 05/07/2016 Status: COMPLETED Source: [place] 11:25 AM [facility] REPOSITORY O ID: [id number]: Hilario CampbellService: (none) Author Type: PhysicianType: Progress NotesFiled: 05/07/2016 3:50 PMNote Text: VISITDaluisana Beckwith is a 30 year old year old here for visit.Delivery Summary:repeat c/sPostpartum Recovery:Feeding: Breast and bottle feedingBreastfeeding problems: NoneMenses since delivery: Not resumedMenstrual pattern prior to : Regular periodsIntercourse since delivery: Not resumedDepression: denies symptoms of depression. See depressionscreening tab.Emotional support: yesBowel symptoms: Negative for abdominal discomfort, blood in stools orblack stools and change in bowel habitsBladder symptoms: No dysuria, gross hematuria, urinary frequency, urinaryurgency, or incontinenceOther issues: NonePAST SURGICAL HISTORY DELIVERY ONLY Comment , low cervical GASTRIC BYPASS HX 04/2011 PAST SURGICAL HISTORY OF Comment kidney stone DELIVERY ONLY N/A 04/23/2016FAMILY HISTORY Alcohol/Drug Father Hypertension Maternal Grandfather Comment: CHF Heart Maternal Grandfather Comment: [place] Cancer Paternal Grandmother Comment: throat cancer Stroke Paternal GrandmotherSOCIAL HISTORY Social History Marital status: Spouse name: Years of education: 12 Number of children: 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 *Social History Main Topics Smoking status: Former Smoker Packs/day: 0.50 Years: 13.00 Types: Cigarettes Quit date: 03/15/2016 Alcohol use: Yes Comment: social, not while Drug use: No Comment: Hx marijuana use Sexual activity: Yes control/protection: Other Comment: depo provera, mirena removed PHYSICAL EXAMINATION:LMP 06/29/2015GENERAL: pleasant, female in no apparent distressABDOMEN: soft, non-tender, no masses and incision clean, dry and intact..ASSESSMENT AND PLAN:30 year old status post CS with normal course.plans nuvaring for contraceptionHilario Campbell MD HOSP Observed: 05/07/2016 Status: COMPLETED Source: [place] 11:10 AM [facility] REPOSITORY Office Visit (WOOB) -------CITLALI BECKWITH ([id number]) 1985 FDate Time Provider Department05/07/16 11:10 AM HILARIO CAMPBELL During your visit today, we recorded the following information about you: Blood pressure Weight 114/62 95.4 kgHilario Campbell MD 05/07/2016 3:50 PM SignedPOSTPARTUM VISITDaluisana Beckwith is a 30 year old year old here for visit.Delivery Summary:repeat c/ sPostpartum Recovery:Feeding: Breast and bottle feedingBreastfeeding problems: NoneMenses since delivery: Not resumedMenstrual pattern prior to : Regular periodsIntercourse since delivery: Not resumedDepression: denies symptoms of depression. See depression screeningtab.Emotional support: yesBowel symptoms: Negative for abdominal discomfort, blood in stools or blackstools and change in bowel habitsBladder symptoms: No dysuria, gross hematuria, urinary frequency, urinaryurgency, or incontinenceOther issues: NonePAST SURGICAL HISTORY DELIVERY ONLY Comment , low cervical GASTRIC BYPASS HX 04/2011 PAST SURGICAL HISTORY OF Comment kidney stone DELIVERY ONLY N/A 04/23/2016FAMILY HISTORY Alcohol/Drug Father Hypertension Maternal Grandfather Comment: CHF Heart Maternal Grandfather Comment: [place] Cancer Paternal Grandmother Comment: throat cancer Stroke Paternal GrandmotherSOCIAL HISTORY Social History Marital status: Spouse name: Years of education: 12 Number of children: 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 .ASSESSMENT AND PLAN:30 year old status post CS with normal course.plans nuvaring for contraceptionRejaci Campbell, MDReferring Provider: SELF [200]Allergies As of Date: 05/07/2016 Noted Allergy ReactionADHESIVE TAPE (ROSINS) 08/14/2013 2 - RashLATEX 07/09/2007 2 - RashWELLBUTRIN (BUPROPION HCL) 2006 Comments: SeizureDate Reviewed: 05/07/2016Reviewed by: Bryson Sales Tumble Tailstock Turret Lathe Operator - Fully AssessedReason for Visit: Follow Up [171] Cmt: diarrhea x 4 daysPrimary Visit Diagnosis: care and examination [Z39.2] Other Visit Diagnosis:Diarrhea of presumed infectious origin [A09] Order(s):C. DIFFICILE PCR [SQCDPCR] Order #: [id number] as of 05/07/2016 Sig: ACYCLOVIR 400 MG TABLET Take 1 tablet by mouth twice * BUPROPION HCL SR 150 MG TABLE * Take 1 tablet by mouth twice * RANITIDINE 300 MG TABLET Take 1 tablet by mouth daily * Patient taking differently: Take 300 mg by mouth at bedti* PROMETHAZINE 25 MG TABLET Take 0.5-1 tablets by mouth e* [id number]-F* Take 1 tablet by mouth. SHEET ROCK HANGER-B12 INJECTION by INJECTION(UNSPECIFIED PARE*Medication notes this encounter [id number]-FE-[id number] TABLET >> Bryson Sales Cma 05/07/2016 11:25 AM >> HUY RICHARDS, BRYSON Funes Mon May 07, 2016 11:25 AM No longer usingProblem List As Of Date 05/07/2016 Noted Resolved ADJUSTMENT REACTION NOS [F43.20] INVALID FOR*07/14/2007 Unspecified Seborrheic Dermatitis [L21.9] INVALID FOR* Attention deficit disorder [F98.8] INVALID FOR* More... Adjustment Disorder with Depressed Mood [ F43.21]INVALID FOR* Tobacco use disorder [F17.200] INVALID FOR*09/13/2015 More... Routine [facility]*INVALID FOR*09/13/2015 Class: Chronic More... Routine gynecological examination [Z01.419] INVALID FOR*09/13/2015 Class: Chronic More... Morbid obesity (HCC) [E66.01] INVALID FOR*09/13/2015 Insomnia [G47.00] INVALID FOR*09/13/2015 Thrombosed external hemorrhoid [ K64.5] INVALID FOR*09/13/2015 Recurrent UTI (urinary tract infection) complic* INVALID FOR* More... Kidney stones [N20.0] INVALID FOR*09/13/2015 Marijuana abuse [F12.10] INVALID FOR* History of gastric bypass [Z98.890] INVALID FOR* History of delivery, currently pregnan*INVALID FOR*05/07/2016 More... History of recurrent UTI (urinary tract infecti*INVALID FOR* More... History of herpes genitalis [Z86.19] INVALID FOR* More... History of depression [Z86.59] INVALID FOR* More... Tobacco use in [O99.330] INVALID FOR* More... History of marijuana use [Z87.898] INVALID FOR* More... H/O macrosomia in in prior , cu*INVALID FOR* More... Patient requested diagnostic testing [ Z01.89] INVALID FOR*11/21/2015 More... History of kidney stones [Z87.442] INVALID FOR*09/13/2015 Trichomonal vaginitis during in secon*INVALID FOR* More... Urgency of urination [R39.15] INVALID FOR* Frequency of micturition [R35.0] INVALID FOR* UTI (urinary tract infection) in , ant*INVALID FOR*2015Disposition: Return in about 1 year (around 05/07/2017).Follow-up and Disposition History RecordedEncounter Number: [id number] Status:Closed by HILARIO CAMPBELL MD on 05/07/16 ALLERGIES ALLERGIES DATE TYPE / NAME / CODE REACTION SEVERITY SOURCE CODE 05/02/2017 Drug NSAIDS Other Unknown Em Allergy/41 (Non-Steroidal Community [id number]( Anti-Inflamma/F00 [facility]) 2272355(RXNORM) Repository 05/02/2017 Drug aspirin/[id number] Other Unknown Em Allergy/41 7(RXNORM) [facility] [id number]([facility]) Repository 05/02/2017 Drug adhesive Other Unknown Em Allergy/41 tape/[id number](R Community 5641958( XNORM) [facility]) Repository 05/02/2017 Drug bupropion/[id number] Other Unknown Em Allergy/41 611(RXNORM) [facility] 9390449([facility]) Repository 05/02/2017 Drug latex/[id number]( Other Unknown Em Allergy/41 RXNORM) [facility] 5894370([facility]) Repository 05/01/2017 DRUG VENLAFAXINE OTHER: SEE C [facility] INGREDI/41 [place] 4007620(SN Repository OMED CT) 08/16/2016 AdvReac/42 NSAIDS Other [place] 8479155(SN (Non-Steroidal Community OMED CT) Anti-Inflamma Hospital Repository 08/16/2016 AdvReac/42 aspirin Other [place] 8402751(SN Community OMED CT) Hospital Repository 08/16/2016 Allergy/42 adhesive tape Other [place] 6316902( Community OMED CT) Hospital Repository 08/16/2016 Allergy/42 bupropion Other [place] 1571192(SN Community OMED CT) Hospital Repository 08/16/2016 Allergy/42 latex Other [place] 5050978( Community OMED CT) Hospital Repository 08/15/2016 DRUG GABAPENTIN INTOLERANCE [place] [address] [address] [place] 6774419(SN Repository OMED CT) 07/05/2014 Drug NSAIDS [facility] Class/4195 (NON-STEROIDAL [place] [address](SNOM ANTI-INFLAMMATORY Repository ED CT) DRUG) 08/14/2013 Chemical/4 ADHESIVE TAPE RASH [facility] [id number](S (ROSINS) [place] NOMED CT) Repository 08/14/[address] 7069814(SN Repository OMED CT) 07/09/2007 DRUG LATEX RASH [place] [address] [address] [place] 2261866(SN Repository OMED CT) 11/28/2006 DRUG BUPROPION HCL OTHER: SEE C [address] 2382358(SN Repository OMED CT) 11/28/2006 DRUG BUPROPION HCL [address] 4448942(SN Repository OMED CT) ENCOUNTERS ENCOUNTERS ADMIT/DISCHARGE ACCOUNT ADMITTING ENCOUNTER LOCATION SOURCE NUMBER CLASS 05/02/2017 [id number] Emergency [facility] ing:ED Repository 05/01/2017/05/01/19 [id number] Ambulatory [address] [place] Repository 05/01/2017/05/01/19 [id number] Ambulatory [address] [place] Repository 02/18/2017/02/19/20 [id number] Ambulatory [address] [place] Repository 02/18/2017/02/19/20 [id number] Ambulatory [address] [place] Repository 12/26/2016/12/29/19 [id number] Ambulatory [address] [place] Repository 11/05/2016/11/08/19 [id number] Ambulatory [address] [place] Repository 08/29/2016/08/31/19 [id number] Ambulatory [address] Repository 08/16/2016/08/17/19 [id number] Ambulatory Em Em [address] [place] [address] ing:SDC Repository 08/16/2016/10/10/19 [id number] Ambulatory [address] Repository 08/15/2016/09/05/19 [id number] Ambulatory [address] Repository 05/31/2016 [id number] Ambulatory [facility] Repository 05/31/2016/06/02/19 [id number] Ambulatory [address] Repository 05/30/2016/06/01/19 [id number] Ambulatory [address] Repository 05/07/2016/05/11/19 [id number] Ambulatory [address] Repository PAYERS PAYERS ENCOUNTER GUARANTOR PAYER SUBSCRIBER SOURCE 05/02/2017 Citlali Badillo9 Primary Citlali D Em [place] [id number] [address]ke: PLANPolicy Number: Repository [id number] (HP) Date:1783-10-59ZJ [address] [place] [address] 26028KQ: 05/02/2017 Secondary NOT GIVENUNK [place] Insurance:SELF PAY [facility] Number: Effective Repository Date:2017-05-02 08/16/2016 CITLALI BECKWITH829 Primary CITLALI HARRISDOB: [place] Insurance:VANDERWAGEN [id number] [facility] [address]Iyk: PLANPolicy Number: Repository [id number] (HP) Date:[address] [place] [address]JH:
--- NOTE | 2017-05-02 13:30 | ED.DCSUM_ITS ---
- ER Visit Summary Date of Service: 05/02/17 Chief Complaint: Seizure History of Present Illness: The patient is a [address] Cheema. She reports that she had a seizure today that coworker saw. It lasted approximately 1-2 minutes. She was diffuse convulsions. She did have a postictal episode. She did not bite her tongue. Did not have any urinary incontinence. Only complaint now is a headache that 6 out of 10 severity. Patient reports that she had a seizure approximately 15 years ago after an accidental overdose on Wellbutrin. She was placed back on Wellbutrin approximately 1 year ago and had not had problems until today. Review of systems: General: No fever, chills, cold sweats. Cardiovascular: No chest pain, palpitations. Respiratory: No cough, shortness of breath, dyspnea on exertion. Gastrointestinal: No abdominal pain, nausea, vomiting, diarrhea, melena, or hematochezia. Genitourinary: No dysuria, frequency, hematuria. Skin: No rash. Neuro: No headache, numbness, weakness. Physical Examination: Vitals: Stable. Afebrile. General: Well-nourished and well-developed. Head: Normocephalic atraumatic. Neck: Supple, no lymphadenopathy. No JVD. Nontender. Cardiovascular: Regular rate and rhythm. No murmurs. Respiratory: No respiratory distress. Clear to auscultation bilaterally. Abdominal: Soft, nontender, nondistended, normal bowel sounds. No guarding, rebound, or peritoneal signs. Back: Nontender. Extremities: Nontender, no edema. Skin: Normal color, no rash. Neurologic: Alert and oriented ?3. Cranial nerves II through XII are intact. Normal strength and sensation. Psych: Normal affect. Test Results: CT head is normal. CBC is normal. Chem-7 is more for glucose of 16 calcium 8.4. test is negative. Emergency Department Course and Treatment: Patient was able to eat here without difficulty. She is given [place] p.o. She is resting comfortably. Treatment Plan: The patient was discussed with Dr. Woods. She will be written for an outpatient EEG. She is instructed to stop the Wellbutrin. She will have Paxil given in place of this. She is instructed not to drive for 6 months. Follow-up with Dr. Woods in 3-4 weeks for another exam. Return to the emergency department for any worsening symptoms. Disposition: To home in improved and stable condition. Impression: 1. Seizure, new onset. This note was generated with [employer] dictation software. It may contain incorrect words, spelling, and punctuation that were not noted in review of the chart prior to signing ED Disposition - Plan for ED Patient: Disposition: Home or Assisted Living Chief Complaint: Seizure Instructions: ED Seizure New Onset Unk Cause Prescriptions: Paroxetine HCl [Paxil] 20 mg PO DAILY #30 tablet Referrals: Shelly Woods MD [STAFF PHYSICIAN] - 1-2 Weeks
[2017-05-02 14:03] VITALS: BP 127/84; PULSE 78; RESP 16; O2SAT 96
== END 2017-05-02 14:04 | disposition home or self-care (01) ==
LOC: ED 12:26
PROVIDERS: Emergency Provider Emergency Medicine; Family Provider Family Medicine; PCP Family Medicine
DX: R56.9 Unspecified convulsions (principal); Z87.442 Personal history of urinary calculi; Z72.0 Tobacco use; Z79.899 Other long term (current) drug therapy
CPT/HCPCS: 70450; 80048; 84703; 85025; 96360; 99285; J7030; J7040; A4216

== ENCOUNTER → 2018-01-29 14:08 | Outpatient (CLI) | payer MEDICAID, SELFPAY ==
--- NOTE | 2018-01-29 14:13 | CT_ITS ---
STUDY: CT ABDOMEN AND PELVIS WITHOUT CONTRAST REASON FOR EXAM: Female, 32 years old. UTI and chronic kidney stones RADIATION DOSAGE (If Supplied By Facility): CTDIvol = ( 12.93 ) mGy, DLP = ( 640.93 ) mGycm TECHNIQUE: Transaxial images were obtained from the dome of the diaphragm to the symphysis pubis without oral contrast, and without intravenous contrast. Sagittal and coronal images were reconstructed. Individualized dose optimization techniques were used for this CT. COMPARISON: None. FINDINGS: The visualized lung bases are unremarkable. The visualized portions of the heart are within normal limits. Hepatomegaly. The gallbladder is contracted. Normal spleen. Normal pancreas. Normal bilateral adrenal glands. Multiple nonobstructing right renal stones measuring up to 3 mm. Normal left kidney. Gastric bypass. Normal colon. The appendix is visualized and appears normal. Normal abdominal aorta. Normal inferior vena cava. Normal retroperitoneum. Normal urinary bladder. A cervical ring is present. Normal abdominal wall. Normal osseous structures. CT/Abdomen/Pelvis without Cont IMPRESSION: No CT evidence of acute abdominopelvic pathology. No evidence of appendicitis, acute intestinal pathology, or acute obstructive uropathy. Hepatomegaly. Electronically Signed: Paul Nolen MD at 6:42 EDT Tel , Service support ,
== END ==
PROVIDERS: Family Provider Family Medicine; PCP Family Medicine; Referring Provider Urology; Visit Provider Urology
DX: N39.0 Urinary tract infection, site not specified (principal); N20.0 Calculus of kidney
CPT/HCPCS: 74176

== ENCOUNTER → 2018-04-15 09:22 | Outpatient (CLI) | payer MEDICAID, SELFPAY ==
--- NOTE | 2018-04-15 09:28 | RAD_ITS ---
STUDY: X-RAY - ABDOMEN/PELVIS REASON FOR EXAM: Female, 32 years old. Follow-up renal calculus. Recent hernia surgery. TECHNIQUE: Two AP supine views of the abdomen and pelvis. COMPARISON: CT scan abdomen and pelvis 01/28 04/08. FINDINGS: Normal visualized lung bases. There is an unremarkable bowel gas pattern. There is no demonstrated free abdominal air. There are 4 mm and 3 mm right lower pole renal calculi. No other urinary calculi are identified. Other surgical clips overlying left upper quadrant of the abdomen, consistent with previous gastric bypass surgery. Normal soft tissue structures. Normal visualized osseous structures. RAD/Abdomen Single View IMPRESSION: 4 mm and 3 mm right lower pole renal calculi. Previous gastric bypass surgery. Nonspecific bowel gas pattern. Electronically Signed: Reagan Bautista MD at 2:16 EST , Service support ,
== END ==
PROVIDERS: Family Provider Family Medicine; PCP Family Medicine; Referring Provider Urology; Visit Provider Urology
DX: N20.0 Calculus of kidney (principal)
CPT/HCPCS: 74018

== ENCOUNTER → 2018-06-17 07:42 | Outpatient (CLI) | payer MEDICAID, SELFPAY ==
[2016-04-23 13:47] VITALS: BMI 38.1
--- NOTE | 2018-06-17 10:35 | NEURO ---
NCS and/or EMG Patient Report Ordering Doctor: Paul Cheema DATE OF SERVICE: 06/17/18 This is a right upper extremity EMG and nerve conduction study performed on this 32-year-old female with numbness tingling and pain in the right hand and arm worse while asleep progressively worse for years. She is healthy although she has had gastric bypass approximately 7 years ago and reports that she has been compliant with vitamin replacement therapy. Right upper extremity sensory and motor nerve conduction studies performed demonstrating mild to moderate prolongation of the median motor and sensory responses with preservation of amplitudes and conduction velocities. The ulnar motor and sensory and radial sensory responses are normal. The median and ulnar F-wave latencies are normal. Right upper extremity needle electromyography is performed. Muscles evaluated included the first interosseous, abductor pollicis brevis, brachioradialis, biceps, triceps and deltoid muscles. All muscles demonstrated normal insertional activity with absence of pathologic spontaneous activity. Motor unit potential recruitment pattern and amplitude is normal in all muscles tested. Impression: This is an abnormal electrophysiologic study of the right upper extremity consistent with mild carpal tunnel syndrome the right.
== END ==
PROVIDERS: Family Provider Family Medicine; PCP Family Medicine; Referring Provider Family Medicine; Visit Provider Family Medicine
DX: G56.01 Carpal tunnel syndrome, right upper limb (principal)
CPT/HCPCS: 95886; 95910

== ENCOUNTER 2019-09-09 10:30 | Outpatient (RCR) | payer MEDICAID, SELFPAY ==
[2019-08-11 09:47] VITALS: BMI 32.8
--- NOTE | 2019-08-18 11:53 | HP.OTEVAL ---
Patient's Visit Information CITLALI GOULD is a 33 year old F, referred to Occupational Therapy by Dr. Kala Ramirez DC, with a diagnosis of Bilateral CTS. Date of Evaluation: 08/17/19 Occupational Therapist: Karen Eugene, CHEIKH/Marin, CHT - Subjective This 33 year old female was seen for OT bryce with dx of CTS. Pt states she has had CTS for about 4 years and the symptoms continue to increase. pt states she has been doing more yard work and painting and has noticed a increase in symptoms the last few weeks. Pt has a brace for both wrist to wear at night but typically wears right as its symptoms of numb/tingling are more. 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 pt would like to decrease her symptoms to sleep throughout the night and perform ADLs and IADLs as needed. pt has wrist brace for bilateral hands. - Pain Bilateral hands 4 Pain Intensity Range: 0, 4 - ROM ROM Comments: pt demo BUE ROM WNL grossly throughout - Strength Liquid Flavor Compounder: right 50# left 60# Lateral Pinch: right 6# left 6# Tripod Pinch: right 12# left 12# Tip-to-Tip Pinch: right 10# left 10# - Sensation Thumb: right 2.83 left 2.83 Index: right 2.83 left 2.83 Middle: right 2.83 left 2.83 Ring: right 2.83 left 2.83 Little: right 2.83 left 2.83 Sensation Comments: pts tested sensation WNL - Special Tests Phalen's (Carpal Tunnel): positive R/L Median Nerve Compression Test: positive R/L - Quick DASH-Disab of Arm,Shoulder& Hand Quick DASH Score: 40.0000 - Carpal Tunnel Syndrome Total Score of Symptom & Functional Sections: 36 - Goals Goal:: Pt will demo a increase in bilateral data operations manager strength by 15# or greater by d/c to increase pts ind. with ADLs and IADls. Goal:: pt will report pain no greater than 1/10 to increase ind. with ADLS and IADLS by d/c Goal:: PT will report a decline in symptoms of numb/tingling to less than 3 x in two week period by d/c Goal:: Pt will demo the understanding of work station ergo to decrease nerve compression for extended periods of time while working by d/c - Rehabilitation General Assessment: Pt demo positive median nerve compression. Pt would benefit from skilled OT services 2x week for 3 weeks for therapist to ed. pt on median and ulnar nerve glides, UE stretches, and work station ergonomics to decrease pts symptoms of ting/numbness. Today pt was ed on nerve glide for median and ulnar nerve- pt was ed. on limiting prolong positions of wrist or elbow flex/ext. Rehabilitation Potential: Good - Anticipated Interventions A/AAROM/PROM, Sensory Retraining, Modalities, Joint Protection/Energy Conservation, Ergonomic Education, Home Program - Visit Plan Frequency: 1-2x /Week Duration: 3 Weeks TEXT: Thank you for the opportunity to evaluate your patient. For Medicare and Medicare HMO plans, please review the plan of care and approve it. It will need to be FAXED BACK to us at [phone] for Medicare purposes. Please let me know if there are questions or concerns regarding this plan of care. Physician Signature: Date:
--- NOTE | 2019-09-09 10:56 | HP.OTDCSUM ---
It has been my pleasure to treat CITLALI GOULD under orders from Dr. Kala Ramirez DC, for the diagnosis of Bilateral CTS for a total of 5 visit(s). Please see the following information for a summary of their discharge status. Objective/Function: pt demo understanding of conservative CTS tx as wearing wrist brace, forearm stretches and median nerve glides. pt to cont. with HEP until she is able to schedule apt. with DrYodit Patient Goals: Use Hand/Wrist/Arm Normally Again, Sleep Better, Decrease Tingling/Numbness, Be More Independent in ADLS Goal:: Pt will demo a increase in bilateral ocean forwarder strength by 15# or greater by d/c to increase pts ind. with ADLs and IADls. Goal:: pt will report pain no greater than 1/10 to increase ind. with ADLS and IADLS by d/c Goal:: PT will report a decline in symptoms of numb/tingling to less than 3 x in two week period by d/c Goal:: Pt will demo the understanding of work station ergo to decrease nerve compression for extended periods of time while working by d/c Plan: D/C Discharge Comments: pt was seen for 5 OT sessions. During this time pt had a right cortisone shot and this improved her right handed symptoms. Pt waited on the left but due to CTS on left have not changed in past 2 weeks pt would like to return to for cortisone shot. therapist advised pt to cont with median nerve glides, forearm stretches and use of wrist brace at night until she returns to pt demo understanding. If there are questions or concerns regarding this patient's occupational therapy, please fell free to call me at [phone]. Thank you for the referral of this patient. Sincerely, Karen Eugene, OTR/L, CHT
== END 2019-09-09 19:00 | disposition home or self-care (01) ==
LOC: OT 10:30
PROVIDERS: PCP Family Medicine; Referring Provider Chiropractor; Visit Provider Chiropractor
DX: G56.00 Carpal tunnel syndrome, unspecified upper limb (principal)
CPT/HCPCS: 97035; 97110; 97140; 97166; 97530

== ENCOUNTER → 2019-10-21 22:45 | Outpatient (CLI) | payer MEDICAID, SELFPAY ==
[2019-08-11 09:47] VITALS: BMI 32.8
== END ==
PROVIDERS: PCP Family Medicine; Visit Provider Family Medicine
DX: G47.9 Sleep disorder, unspecified (principal)
CPT/HCPCS: 95810

== ENCOUNTER 2020-10-18 12:02 | Emergency (ER) | payer MEDICAID, SELFPAY ==
[2019-08-11 09:47] VITALS: BMI 32.8
[2020-10-18 12:03] VITALS: BP 125/69; PULSE 75; RESP 16; TEMP 36.4; O2SAT 98; BMI 32.8
--- NOTE | 2020-10-18 12:27 | EX.ED.DYSGE1 ---
HPI History of Present Illness Chief Complaint: Complaint Detail of Chief Complaint: Patient presents with concern for possible UTI Informant: patient Narrative Narrative: Patient presents to the emergency department thinking she might have a urinary tract infection. Patient states that she used to get frequent urinary tract infections that were not responsive to certain antibiotics. Patient over the last week or so has been feeling fatigued and frequently urinating at night. She denies dysuria or hematuria. Patient has had history of kidney stones in the past and has seen a urologist at [facility]. Patient denies any fevers or sweats. She complains of some body aches. She denies cough. She denies Covid exposures. She has not had Covid and did not get the Covid vaccine. Prior similar symptoms: Yes PFSH PFSH Medical History (Updated 10/18/20 @ 13:[address] Gianluca Barajas, DO) Allergies Anemia Bilateral headaches Carpal tunnel syndrome history of gastric byoass History of seizures Hypoglycemia Vitamin D deficiency Home Medications famotidine 20 mg PO BID #28 tab 10/29/15 [Rx Last Taken 04/21/16] etonogestrel-ethinyl estradiol 1 unit VAGINAL UD 08/16/16 [History Last Taken Unknown] gabapentin 900 mg PO QHS 08/16/16 [History Last Taken Unknown] ciprofloxacin HCl [Cipro] 500 mg PO BID #14 tab 10/18/20 [Rx Last Taken Unknown] lisdexamfetamine [Vyvanse] 20 mg PO DAILY 10/18/20 [History Last Taken Unknown] Allergy/AdvReac Type Severity Reaction Status Date / Time adhesive tape Allergy Other Verified 10/18/20 12:05 aspirin Allergy Other Verified 10/18/20 12:05 bupropion [From Wellbutrin] Allergy Other Verified 10/18/20 12:05 latex Allergy Hives Verified 10/18/20 12:05 NSAIDS (Non-Steroidal Allergy Other Verified 10/18/20 12:05 Anti-Inflamma bupropion HCl AdvReac Other Verified 10/18/20 12:05 [From Wellbutrin] venlafaxine [From Effexor] AdvReac Upset Verified 10/18/20 12:05 Stomach Family History (Updated 08/11/19 @ 09:49 by Inga Santiago) Other Cancer Surgical History History of section Social History (Updated 08/11/19 @ 10:[address] Kala Ramirez, GARCIA) Smoking Status: Current every day smoker tobacco type: cigarettes quit status: not considering quitting counseling given: provider counseling alcohol intake: never substance use type: does not use what type of physical activity do you participate in: none ROS ROS ED ROS Narrative Generalized weakness and fatigue Constitutional Constitutional ED: Reports systems reviewed and no addt'l complaints, except as documented; Denies body ache(s), change in weight or chills Eyes Eyes: Denies acute decrease in peripheral vision, change in vision, double vision or loss of vision ENT ENT ED: Reports none; Denies ear pain, lip swelling, loss taste/smell, neck pain, otalgia or sore throat Cardiovascular Cardiovascular: Reports none; Denies abdominal pain, chest pain with activity, leg edema, lightheadedness, palpitations, rapid heart rate or syncope Respiratory/Chest Respiratory/Chest: Reports none; Denies change in mental status, dry cough, dyspnea, hemoptysis, shortness of breath at rest or shortness of breath with exertion Gastrointestinal Gastrointestinal: Reports none; Denies abdominal pain, change in stool character, diarrhea, hematemesis, hematochezia, melena, rectal bleeding or vomiting Genitourinary Genitourinary ED: Reports none and urinary frequency; Denies abdominal discomfort, anuria, dysuria, genital pain or polyuria Musculoskeletal Musculoskeletal: Reports none; Denies arthralgias, back pain, difficulty walking, extremity pain, muscle weakness or myalgias Integumentary Reports none; Denies abscess or rash Neurologic Neurologic: Reports none; Denies abnormal gait, confusion, focal weakness, frequent falls, headache(s), loss of vision, numbness, paresthesias, radicular pain, vertigo or weakness Psychiatric Psychiatric: Reports systems reviewed and no addt'l complaints, except as documented and none; Denies behavioral changes, confusion, difficulty concentrating, hallucinations, suicidal ideation, tactile hallucinations or visual hallucinations Endocrine Endocrinology: Denies none, cold intolerance, excessive sweating, fatigue or heat intolerance Hematologic/Lymphatic Hematologic/Lymphatic: Reports none; Denies anemia, easy bleeding or easy bruising Allergic/Immunologic Allergic/Immunologic ED: Denies as per HPI, none, lip swelling, mouth swelling, throat swelling, tongue swelling or hives EXAM Physical Exam Const Vital Signs: 10/18/20 12:03 Temperature 97.6 F L Temperature Source Temporal Pulse Rate 75 Respiratory Rate 16 Blood Pressure 125/69 H Blood Pressure Mean 87 Pulse Ox 98 Oxygen Delivery Method Room Air Positive well nourished and well developed General Appearance ED: well developed and NAD HEENT Reports TM's clear and moist mucous membranes normocephalic and atraumatic; Negative for trauma or tenderness Tympanic Membrane ED: Yes TM's clear Eyes PERRL and EOMs intact bilaterally General Eye ED: Negative for pale conjunctiva or scleral icterus Neck no lymphadenopathy, supple and no JVD General: Negative for tenderness Chest Wall inspection of chest normal and palpation of chest normal Chest: Negative for tenderness Resp normal respiratory effort and clear to auscultation bilaterally Effort and Inspection: Negative for respiratory distress or pain with movement Auscultation: Negative for rhonchi, wheezes or diminished lung sounds Cardio regular rate, regular rhythm, S1 normal heart sound, S2 normal heart sound and no murmurs Peripheral Pulses: pulses 2+ throughout GI normal to inspection, nondistended, normoactive bowel sounds, soft to palpation, non-tender, non-distended and no masses Back/Spine no CVA tenderness and no thoracic nor lumbar tenderness Extremity normal to inspection General Extremety ED: Negative for edema General Extremity: Negative for edema Neuro oriented x3, CN's II-XII intact bilaterally, no sensory deficits noted and gait normal Sensorium / Orientation: awake, alert, oriented to person, oriented to place and oriented to time Motor Exam: strength 5/5 throughout and strength abnormal Psych mental status grossly normal Skin no rashes or lesions noted and no wounds MDM MDM MDM Narrative Medical decision making narrative: Patient's lab work was unremarkable. Her urine was concerning for UTI and that she had positive nitrites as well as 500 leukocyte esterase and 5-10 WBCs and +1 bacteria. I did review her prior urine cultures similar which grew out Klebsiella as well as Enterococcus faecalis and E. coli. These bacteria seem to be sensitive at that time to Cipro. I will cover her with Cipro as she does not appear ill currently or toxic. Patient advised to follow-up with her primary care physician within next 3 to 5 days. She is to return if fever, vomiting, or condition should worsen anyway. Lab Data Attestation: I reviewed the patient's lab results. Labs: Laboratory Results - last 24 hr 10/18/20 10/18/20 10/18/20 12:24 12:35 12:35 WBC 5.4 RBC 4.61 Hgb 13.8 Hct 42.3 MCV 91.8 MCH 29.9 MCHC 32.6 RDW Std Deviation 40.9 RDW Coeff of Gail 12.2 Plt Count 195 MPV 10.2 Immature Gran % (Auto) 0.200 Neut % (Auto) 64.6 Lymph % (Auto) 24.7 [place] % (Auto) 7.7 Eos % (Auto) 2.4 Baso % (Auto) 0.4 Absolute Neuts (auto) 3.5 Absolute Lymphs (auto) 1.34 Nucleated RBC % 0 Sodium 140 Potassium 4.3 Chloride 111 H Carbon Dioxide 25.0 Anion Gap 4 L BUN 13 Creatinine 0.75 Estim Creat Clear Calc 94.21 Est GFR (MDRD) Af Amer 113 Est GFR (MDRD) Non-Af 93 BUN/Creatinine Ratio 17.4 Glucose 83 Lactic Acid Calcium 8.0 L Serum , Qual Urine Color Yellow Urine Clarity Clear Urine pH 5.0 Ur Specific [place] 1.025 Urine Protein 15 H Urine Glucose (UA) Normal Urine Ketones Negative Urine Occult Blood 150 H Urine Nitrite Positive H Urine Bilirubin Negative Urine Urobilinogen Normal Ur Leukocyte Esterase 500 H Urine RBC 0 SEEN Urine WBC 5-10 SEEN Ur Squamous Epith Cells 5-10 SEEN Urine Bacteria 1+ Urine Mucus 1+ 10/18/20 10/18/20 12:35 12:35 WBC RBC Hgb Hct MCV MCH MCHC RDW Std Deviation RDW Coeff of Gail Plt Count MPV Immature Gran % (Auto) Neut % (Auto) Lymph % (Auto) [place] % (Auto) Eos % (Auto) Baso % (Auto) Absolute Neuts (auto) Absolute Lymphs (auto) Nucleated RBC % Sodium Potassium Chloride Carbon Dioxide Anion Gap BUN Creatinine Estim Creat Clear Calc Est GFR (MDRD) Af Amer Est GFR (MDRD) Non-Af BUN/Creatinine Ratio Glucose Lactic Acid 0.7 Calcium Serum , Qual NEGATIVE Urine Color Urine Clarity Urine pH Ur Specific [place] Urine Protein Urine Glucose (UA) Urine Ketones Urine Occult Blood Urine Nitrite Urine Bilirubin Urine Urobilinogen Ur Leukocyte Esterase Urine RBC Urine WBC Ur Squamous Epith Cells Urine Bacteria Urine Mucus Discharge Plan Triage Chief Complaint: Complaint ED Provider: Gianluca Barajas Dx/Rx/DC Orders Clinical Impression: UTI (urinary tract infection) Instructions: ED CYSTITIS Female Adult Prescriptions: New ciprofloxacin HCl [Cipro] 500 mg tablet 500 mg PO BID Qty: 14 RF: 0 No Action famotidine 20 MG tablet 20 mg PO BID Qty: 28 RF: 0 gabapentin 300 MG capsule 900 mg PO QHS RF: 0 etonogestrel-ethinyl estradiol 1 EACH ring 1 unit vaginal UD RF: 0 Vyvanse 20 mg Capsule 20 mg PO DAILY RF: 0 Primary Care Provider: Paul Cheema Referrals: Paul Cheema MD [Primary Care Provider] - 3-5 Days Disposition Disposition: Home, Self Care
[2020-10-18 12:29] LABS: Red Blood Cells-Urine 0 SEEN /hpf (0-5)
[2020-10-18 12:38] LABS: Color, Urine Yellow (Yellow); Glucose, Dipstick Normal (Normal); Ketone-Dipstick Negative (Negative); Leukocyte Esterase-Dipstick 500 /ul (Negative); Nitrite-Dipstick Positive (Negative); Occult Blood-Urine 150 /ul (Negative); Protein-Dipstick 15 mg/dl (Negative); Specific Gravity, Urine 1.025 (1.002-1.030); Urine Bilirubin Dipstick Negative (Negative); Urine Clarity Clear (Clear); Urine Urobilinogen Normal (Normal)
[2020-10-18] MEDS: 0.9% Normal Saline 1,000 ML 150 ML IV (12:41)
[2020-10-18 12:45] LABS: Absolute Lymphocyte Count 1.34 X10^3/uL (0.83-4.51); Absolute Neutrophil Count 3.5 X10^3/uL (2.0-7.7); Basophil# 0.02 X10^3/uL; Basophil% 0.4 % (0-1); Eosinophil# 0.13 X10^3/uL; Eosinophils% 2.4 % (0-5); Hematocrit 42.3 % (37-47); Hemoglobin 13.8 g/dL (12.0-15.0); Lymphocyte # 1.34 X10^3/ul (0.83-4.51); Lymphocyte % 24.7 % (19-41); Mean Corp Hgb Conc 32.6 g/dL (32-36); Mean Corpuscular Hgb 29.9 pg (27.0-32.0); Mean Corpuscular Volume 91.8 fL (81-99); Mean Platelet Vol. 10.2 fl (6.2-12.0); Monocyte# 0.42 X10^3/uL; Monocyte% 7.7 % (0-10); NRBC Flagged by Analyzer 0 % (0-5); Neutrophil % 64.6 % (47-70); Platelet Count 195 K/mm3 (150-450); RBC Distribution Width CV 12.2 % (11.6-14.6); RBC Distribution Width SD 40.9 fl (35.1-43.9); Red Blood Count 4.61 M/mm3 (4.2-5.4); White Blood Count 5.4 K/mm3 (4.4-11.0)
[2020-10-18 12:46] LABS: Bacteria 1+ /hpf (None Seen); Mucous, Urine 1+ /hpf (<or=2+); Squamous Epithelial Cells - UA 5-10 SEEN /hpf (5-10); White Blood Cells 5-10 SEEN /hpf (0-5)
[2020-10-18 12:55] LABS: Internal QC Validated? YES +Cl - CLEAR BKGD; Pregnancy, Serum, hCG Quali. NEGATIVE Negative
[2020-10-18 12:57] LABS: BUN 13 mg/dL (7-18); BUN/Creat Ratio 17.4 RATIO (10-20); Chloride 111 mmol/L (98-107); Creatinine, Serum 0.75 mg/dL (0.55-1.02); EST Glomerular Filtration Rate 93 mL/min (>60); Est Glom Filt Rate - Afr Amer 113 mL/min (>60); Estimated Creatinine Clearance 94.21 ml/min; Glucose 83 mg/dL (74-106); Potassium 4.3 mmol/L (3.5-5.1); Sodium Level 140 mmol/L (136-145)
[2020-10-18 12:58] LABS: Anion Gap 4 (5-15)
[2020-10-18 13:11] LABS: Lactic Acid 0.7 mmol/L (0.4-1.9)
[2020-10-18] MEDS: Ciprofloxacin 250 MG Tablet 500 MG PO (13:58)
== END 2020-10-18 14:00 | disposition home or self-care (01) ==
PROVIDERS: Emergency Provider Emergency Medicine; PCP Family Medicine
DX: N39.0 Urinary tract infection, site not specified (principal); F17.210 Nicotine dependence, cigarettes, uncomplicated; Z87.440 Personal history of urinary (tract) infections; Z79.899 Other long term (current) drug therapy; Z87.442 Personal history of urinary calculi
CPT/HCPCS: 80048; 81001; 83605; 84703; 85025; 87077; 87086; 87088; 87186; 99282; J7030

== ENCOUNTER 2021-06-22 09:14 | Emergency (ER) | payer MEDICAID, SELFPAY ==
[2021-06-22 09:15] VITALS: BP 136/106; PULSE 124; RESP 22; TEMP 35.8; O2SAT 100; BMI 32.4
--- NOTE | 2021-06-22 09:44 | CT_ITS ---
STUDY: CT ABDOMEN AND PELVIS WITHOUT CONTRAST REASON FOR EXAM: Female, 35 years old. Abdominal pain. Prior gastric bypass surgery. History of renal calculi. RADIATION DOSAGE (If Supplied By Facility): CTDIvol = ( 9.70 ) mGy, DLP = ( 501.82 ) mGycm TECHNIQUE: Transaxial images were obtained from the dome of the diaphragm to the symphysis pubis without oral contrast, and without intravenous contrast. Sagittal and coronal images were reconstructed. Individualized dose optimization techniques were used for this CT. COMPARISON: None. FINDINGS: The visualized lung bases are unremarkable. The visualized portions of the heart are within normal limits. Normal liver. Mildly distended gallbladder lumen. Tiny gallstone seen along its dependent portion. Normal spleen. Normal pancreas. Normal bilateral adrenal glands. Moderate degree of the right sided hydronephrosis and right hydroureter due to a 5.9 mm calculus at the right ureterovesical junction. There is a 5.3 mm nonobstructive calculus in the lower pole calyx of the right kidney. 3 mm calculus in the lower pole calyx of the left kidney. Subtotal gastrectomy and compared with prior gastric bypass surgery. Normal small intestine. Normal colon. The appendix is visualized and appears normal. Normal abdominal aorta. Normal inferior vena cava. Normal retroperitoneum. Normal urinary bladder. IUD is seen within the uterus. Normal abdominal wall. Normal osseous structures. CT/Abdomen/Pelvis without Cont IMPRESSION: 5.9 mm calculus at the right ureterovesical junction causing right-sided hydronephrosis and hydroureter. Bilateral nonobstructive intrarenal calculi. Tiny gallstone seen within a mildly distended gallbladder. Status post gastric bypass surgery. Electronically Signed: Jorden Liu MD at 11:29 EDT ,
--- NOTE | 2021-06-22 09:46 | EDS_ITS ---
HPI <ROBERT Pavon - Last Filed: 06/22/21 12:10> History of Present Illness Chief Complaint: Flank Pain Narrative Narrative: 35-year-old female with history of kidney stones presents to the emergency department right-sided flank pain that began last evening. Patient states that it got much more severe this morning, she was unable to perform her daily activities, patient states she had blood in her urine and had difficulty urinating. She denies any fevers or chills. PFSH <ROBERT Pavon - Last Filed: 06/22/21 12:10> [facility] Medical History (Updated 06/30/21 @ 00:01 by Glenn Frost) Allergies Anemia Bilateral headaches Carpal tunnel syndrome history of gastric byoass History of seizures Hypoglycemia Sleep apnea Ureteral calculus Vitamin D deficiency Home Medications famotidine 20 mg PO BID #28 tab 10/29/15 [Rx Last Taken 04/21/16] gabapentin 900 mg PO QHS 08/16/16 [History Last Taken Unknown] Vyvanse 20 mg PO DAILY 10/18/20 [History Last Taken Unknown] cephalexin 500 mg PO Q6 #28 cap 06/22/21 [Rx Last Taken Unknown] ondansetron 4 mg PO Q8H PRN #10 tab 06/22/21 [Rx Last Taken Unknown] oxycodone-acetaminophen [Percocet] 1 tab PO Q6H PRN 3 Days #10 tab 06/22/21 [Rx Last Taken Unknown] trazodone 50 mg PO QHS 06/22/21 [History Last Taken Unknown] Allergy/AdvReac Type Severity Reaction Status Date / Time adhesive tape Allergy Other Verified 06/22/21 09:15 aspirin Allergy Other Verified 06/22/21 09:15 bupropion [From Wellbutrin] Allergy Other Verified 06/22/21 09:15 latex Allergy Hives Verified 06/22/21 09:15 NSAIDS (Non-Steroidal Allergy Other Verified 06/22/21 09:15 Anti-Inflamma bupropion HCl AdvReac Other Verified 06/22/21 09:15 [From Wellbutrin] venlafaxine [From Effexor] AdvReac Upset Verified 06/22/21 09:15 Stomach Family History Other Cancer Surgical History History of section S/P tubal ligation Social History Smoking Status: Current every day smoker tobacco type: cigarettes quit status: not considering quitting counseling given: provider counseling alcohol intake: never substance use type: does not use what type of physical activity do you participate in: none ROS <ROBERT Pavon - Last Filed: 06/22/21 12:10> ROS ED ROS Narrative Constitutional: Negative for fever, chills, weight loss or gain, weakness Eyes: Negative for vision loss, vision change, double vision ENT: Negative for any hearing changes, ringing in the ears, dizziness, discharge, pain Nose: Negative for any congestion, runny nose, sinus pain, allergies Throat: Negative for any sore throat hoarseness, voice changes, Cardiovascular: Negative for any chest pain, tightness, palpitations, racing heartbeat Respiratory: Negative for any coughs, sputum production, coughing, hemoptysis, shortness of breath, shortness of breath on exertion, Gastrointestinal: Negative for any vomiting, diarrhea, constipation, blood in stool, blood in vomit. Positive for right-sided flank pain, nausea : Negative for any incontinence, retention. Positive for dysuria, blood in urine Muscle skeletal: Negative for any muscle joint pain, stiffness, myalgias, arthralgias, neck pain, back pain Neurological: Negative for any headache, head injury, dizziness, syncope, numbness or tingling Skin: Negative for any rashes, lumps, itching, abrasions, lacerations Psychiatric: Negative for any depression, anxiety, stress, suicidal ideation, homicidal ideation Hematologic: Negative for any easy bruising, excessive bruising, easy bleeding Allergies: Negative for any eczema, hives, rash EXAM <ROBERT Pavon - Last Filed: 06/22/21 12:10> Physical Exam Const Vital Signs: 06/22/21 09:15 Temperature 96.4 F L Temperature Source Temporal Pulse Rate 124 H Respiratory Rate 22 H Blood Pressure 136/106 H Blood Pressure Mean 116 Pulse Ox 100 Oxygen Delivery Method Room Air Constitutional Narrative: Patient arrives in mild to moderate distress, patient is unconsolable during initial exam. Eyes PERRL Chest Wall inspection of chest normal Resp normal respiratory effort and clear to auscultation bilaterally Cardio Rate: tachycardic GI non-tender and non-distended Back/Spine General Back: CVA tenderness right Extremity normal to inspection Neuro oriented x3 and CN's II-XII intact bilaterally Sensorium / Orientation: alert Psych mental status grossly normal Skin no rashes or lesions noted <Dr. Sudhir Dubois DO - Last Filed: 07/03/21 07:18> Physical Exam Const Vital Signs: 06/22/21 09:15 Temperature 96.4 F L Temperature Source Temporal Pulse Rate 124 H Respiratory Rate 22 H Blood Pressure 136/106 H Blood Pressure Mean 116 Pulse Ox 100 Oxygen Delivery Method Room Air MDM <ROBERT Pavon - Last Filed: 06/22/21 12:10> [facility] Lab Data Labs: Laboratory Results - last 24 hr 06/22/21 06/22/21 06/22/21 10:05 10:05 10:05 WBC 6.0 RBC 4.33 Hgb 13.7 Hct 39.5 MCV 91.2 MCH 31.6 MCHC 34.7 RDW Std Deviation 41.3 RDW Coeff of Gail 12.6 Plt Count 201 MPV 10.4 Immature Gran % (Auto) 0.300 Neut % (Auto) 63.4 Lymph % (Auto) 26.6 [place] % (Auto) 7.9 Eos % (Auto) 1.3 Baso % (Auto) 0.5 Absolute Neuts (auto) 3.8 Absolute Lymphs (auto) 1.58 Nucleated RBC % 0 Sodium 139 Potassium 3.5 Chloride 106 Carbon Dioxide 26.0 Anion Gap 7 BUN 17 Creatinine 0.75 Estim Creat Clear Calc 93.31 Est GFR (MDRD) Af Amer 112 Est GFR (MDRD) Non-Af 92 BUN/Creatinine Ratio 22.6 H Glucose 97 Calcium 8.7 Serum , Qual NEGATIVE Urine Color Urine Clarity Urine pH Ur Specific [place] U Specif Grav (Refrac) Urine Protein Urine Glucose (UA) Urine Ketones Urine Occult Blood Urine Nitrite Urine Bilirubin Urine Urobilinogen Ur Leukocyte Esterase Urine RBC Urine WBC Ur Squamous Epith Cells Ur Transition Epith Cell Ur Renal Epithelial Cell Calcium Oxalate Crystal Uric Acid Crystals Triple Phos Crystals Other Crystals Amorphous Sediment Urine Bacteria Hyaline Casts Fine Granular Casts Coarse Granular Casts Waxy Casts RBC Casts WBC Casts Urine Mucus Urine Trichomonas Urine Yeast Urine Test 06/22/21 06/22/21 10:05 10:05 WBC RBC Hgb Hct MCV MCH MCHC RDW Std Deviation RDW Coeff of Gail Plt Count MPV Immature Gran % (Auto) Neut % (Auto) Lymph % (Auto) [place] % (Auto) Eos % (Auto) Baso % (Auto) Absolute Neuts (auto) Absolute Lymphs (auto) Nucleated RBC % Sodium Potassium Chloride Carbon Dioxide Anion Gap BUN Creatinine Estim Creat Clear Calc Est GFR (MDRD) Af Amer Est GFR (MDRD) Non-Af BUN/Creatinine Ratio Glucose Calcium Serum , Qual Urine Color Yellow Cancelled Urine Clarity Cloudy Cancelled Urine pH 6.0 Cancelled Ur Specific [place] 1.015 Cancelled U Specif Grav (Refrac) Cancelled Urine Protein 30 H Cancelled Urine Glucose (UA) Normal Cancelled Urine Ketones 5 H Cancelled Urine Occult Blood 150 H Cancelled Urine Nitrite Negative Cancelled Urine Bilirubin 1 H Cancelled Urine Urobilinogen 8 H Cancelled Ur Leukocyte Esterase 500 H Cancelled Urine RBC 0 SEEN Cancelled Urine WBC >100 SEEN Cancelled Ur Squamous Epith Cells 0-5 SEEN Cancelled Ur Transition Epith Cell Cancelled Ur Renal Epithelial Cell Cancelled Calcium Oxalate Crystal Cancelled Uric Acid Crystals Cancelled Triple Phos Crystals Cancelled Other Crystals Cancelled Amorphous Sediment Cancelled Urine Bacteria 3+ Cancelled Hyaline Casts Cancelled Fine Granular Casts Cancelled Coarse Granular Casts Cancelled Waxy Casts Cancelled RBC Casts Cancelled WBC Casts Cancelled Urine Mucus 0 SEEN Cancelled Urine Trichomonas Cancelled Urine Yeast Cancelled Urine Test Negative Radiography Diagnostic Testing: Clinical Impression(s) from Imaging Studies Abdomen/Pelvis CT 06/22/21 09:44 IMPRESSION: 5.9 mm calculus at the right ureterovesical junction causing right-sided hydronephrosis and hydroureter. Bilateral nonobstructive intrarenal calculi. Tiny gallstone seen within a mildly distended gallbladder. Status post gastric bypass surgery. Electronically Signed: Jorden Liu MD at 11:29 EDT , Patient is a 5.9 callus of the right UVJ junction. As well as hydronephrosis, hydroureter. Treatment and Re-Evaluation Narrative: Patient initial arrival was in mild to moderate distress secondary to pain to the right flank. Patient was medicated with IV morphine, Zofran, Toradol. These medications greatly reduce the patient's pain, patient did receive an abdominal flank pain work-up. Patient's laboratory studies were unremarkable, patient's urinalysis does show blood, infection. This will be sent for culture. Patient's CT scan showed a 5.9 m calculus at the right UVJ causing right-sided hydronephrosis hydroureter. This does explain the patient's pain. At this time, on reassessment, the patient was eating and drink, patient states that she feels very well and would like to be discharged. Patient will follow up closely with her established urologist, she will be placed on pain medicine, antibiotics, Zofran, Flomax for home. Patient given strict return precautions to return for any worsening pain, fever, chills, back pain, nausea or vomiting. Patient stable for discharge and will follow up outpatient. <Dr. Sudhir Dubois, DO - Last Filed: 07/03/21 07:18> [facility] MDM Narrative Medical decision making narrative: Patient seen in conjunction with nurse practitioner. I do agree with overall assessment, evaluation, treatment. Patient presented with flank pain secondary to likely kidney stone and was medicated with morphine, Zofran, Toradol. Pain was controlled. Patient CBC and BMP are unremarkable.Patient's urinalysis consistent with infection she does have a CT scan which shows concern for a5.9 mm calculus at the right ureterovesical junction causing right-sided hydronephrosis and hydroureter. On reevaluation patient is well-appearing, nontoxic, vital signs are stable. I believe she can be discharged home on antibiotics and pain medication. She will follow-up with her urologist. She is given return precautions. Impression: 1. Right flank pain 2. 5.9 mm UVJ calculus 3. Hydroureter 4. Hydronephrosis 5. Hematuria 6. Urinary tract infection Lab Data Labs: Laboratory Results - last 24 hr 06/22/21 06/22/21 06/22/21 10:05 10:05 10:05 WBC 6.0 RBC 4.33 Hgb 13.7 Hct 39.5 MCV 91.2 MCH 31.6 MCHC 34.7 RDW Std Deviation 41.3 RDW Coeff of Gail 12.6 Plt Count 201 MPV 10.4 Immature Gran % (Auto) 0.300 Neut % (Auto) 63.4 Lymph % (Auto) 26.6 [place] % (Auto) 7.9 Eos % (Auto) 1.3 Baso % (Auto) 0.5 Absolute Neuts (auto) 3.8 Absolute Lymphs (auto) 1.58 Nucleated RBC % 0 Sodium 139 Potassium 3.5 Chloride 106 Carbon Dioxide 26.0 Anion Gap 7 BUN 17 Creatinine 0.75 Estim Creat Clear Calc 93.31 Est GFR (MDRD) Af Amer 112 Est GFR (MDRD) Non-Af 92 BUN/Creatinine Ratio 22.6 H Glucose 97 Calcium 8.7 Serum , Qual NEGATIVE Urine Color Urine Clarity Urine pH Ur Specific [place] U Specif Grav (Refrac) Urine Protein Urine Glucose (UA) Urine Ketones Urine Occult Blood Urine Nitrite Urine Bilirubin Urine Urobilinogen Ur Leukocyte Esterase Urine RBC Urine WBC Ur Squamous Epith Cells Ur Transition Epith Cell Ur Renal Epithelial Cell Calcium Oxalate Crystal Uric Acid Crystals Triple Phos Crystals Other Crystals Amorphous Sediment Urine Bacteria Hyaline Casts Fine Granular Casts Coarse Granular Casts Waxy Casts RBC Casts WBC Casts Urine Mucus Urine Trichomonas Urine Yeast Urine Test 06/22/21 06/22/21 10:05 10:05 WBC RBC Hgb Hct MCV MCH MCHC RDW Std Deviation RDW Coeff of Gail Plt Count MPV Immature Gran % (Auto) Neut % (Auto) Lymph % (Auto) [place] % (Auto) Eos % (Auto) Baso % (Auto) Absolute Neuts (auto) Absolute Lymphs (auto) Nucleated RBC % Sodium Potassium Chloride Carbon Dioxide Anion Gap BUN Creatinine Estim Creat Clear Calc Est GFR (MDRD) Af Amer Est GFR (MDRD) Non-Af BUN/Creatinine Ratio Glucose Calcium Serum , Qual Urine Color Yellow Cancelled Urine Clarity Cloudy Cancelled Urine pH 6.0 Cancelled Ur Specific [place] 1.015 Cancelled U Specif Grav (Refrac) Cancelled Urine Protein 30 H Cancelled Urine Glucose (UA) Normal Cancelled Urine Ketones 5 H Cancelled Urine Occult Blood 150 H Cancelled Urine Nitrite Negative Cancelled Urine Bilirubin 1 H Cancelled Urine Urobilinogen 8 H Cancelled Ur Leukocyte Esterase 500 H Cancelled Urine RBC 0 SEEN Cancelled Urine WBC >100 SEEN Cancelled Ur Squamous Epith Cells 0-5 SEEN Cancelled Ur Transition Epith Cell Cancelled Ur Renal Epithelial Cell Cancelled Calcium Oxalate Crystal Cancelled Uric Acid Crystals Cancelled Triple Phos Crystals Cancelled Other Crystals Cancelled Amorphous Sediment Cancelled Urine Bacteria 3+ Cancelled Hyaline Casts Cancelled Fine Granular Casts Cancelled Coarse Granular Casts Cancelled Waxy Casts Cancelled RBC Casts Cancelled WBC Casts Cancelled Urine Mucus 0 SEEN Cancelled Urine Trichomonas Cancelled Urine Yeast Cancelled Urine Test Negative Radiography Diagnostic Testing: Clinical Impression(s) from Imaging Studies Abdomen/Pelvis CT 06/22/21 09:44 IMPRESSION: 5.9 mm calculus at the right ureterovesical junction causing right-sided hydronephrosis and hydroureter. Bilateral nonobstructive intrarenal calculi. Tiny gallstone seen within a mildly distended gallbladder. Status post gastric bypass surgery. Electronically Signed: Jorden Liu MD at 11:29 EDT , Discharge Plan Triage Chief Complaint: Flank Pain ED Midlevel Provider: Andrea Schaefer ED Provider: Sudhir Dubois Dx/Rx/DC Orders Clinical Impression: UTI (urinary tract infection), Kidney calculi, Hydronephrosis Instructions: Urinary Tract Infections in Women, ED Kidney Stone, Passed, ED Kidney Stone w/ Colic Prescriptions: New cephalexin 500 mg capsule 500 mg PO Q6 Qty: 28 RF: 0 oxycodone-acetaminophen [Percocet] 5-325 mg tablet 1 tab PO Q6H PRN (Reason: pain) 3 Days Qty: 10 RF: 0 ondansetron 4 mg tablet,disintegrating 4 mg PO Q8H PRN (Reason: nausea and vomiting) Qty: 10 RF: 0 No Action famotidine 20 MG tablet 20 mg PO BID Qty: 28 RF: 0 gabapentin 300 MG capsule 900 mg PO QHS RF: 0 Vyvanse 20 mg Capsule 20 mg PO DAILY RF: 0 trazodone 50 mg tablet 50 mg PO QHS RF: 0 Stand Alone Forms: ED Work / School Excuse Primary Care Provider: Paul Cheema Referrals: Desirae Steen MD [STAFF PHYSICIAN] - 3-5 Days (Please follow-up as soon as possible.) Paul Cheema MD [Primary Care Provider] - Print Language: Faroese Disposition Disposition: Home, Self Care Discharge Date/Time: 06/22/21 23:59
[2021-06-22] MEDS: Ondansetron 4 MG/2 ML Vial IV (10:11)
[2021-06-22] MEDS: Ketorolac 15 MG/ML Vial IV (10:11)
[2021-06-22] MEDS: Morphine 4 MG/ML Syringe IV (10:11)
[2021-06-22] MEDS: 0.9% Normal Saline 1,000 ML 1000 ML IV (10:11)
[2021-06-22 10:16] LABS: Mucous, Urine 0 SEEN /hpf (<or=2+); Red Blood Cells-Urine 0 SEEN /hpf (0-5)
[2021-06-22 10:19] LABS: Absolute Lymphocyte Count 1.58 X10^3/uL (0.83-4.51); Absolute Neutrophil Count 3.8 X10^3/uL (2.0-7.7); Basophil# 0.03 X10^3/uL; Basophil% 0.5 % (0-1); Eosinophil# 0.08 X10^3/uL; Eosinophils% 1.3 % (0-5); Hematocrit 39.5 % (37-47); Hemoglobin 13.7 g/dL (12.0-15.0); Lymphocyte # 1.58 X10^3/ul (0.83-4.51); Lymphocyte % 26.6 % (19-41); Mean Corp Hgb Conc 34.7 g/dL (32-36); Mean Corpuscular Hgb 31.6 pg (27.0-32.0); Mean Corpuscular Volume 91.2 fL (81-99); Mean Platelet Vol. 10.4 fl (6.2-12.0); Monocyte# 0.47 X10^3/uL; Monocyte% 7.9 % (0-10); NRBC Flagged by Analyzer 0 % (0-5); Neutrophil # 3.77 X10^3/uL (2.7-7.7); Neutrophil % 63.4 % (47-70); Platelet Count 201 K/mm3 (150-450); RBC Distribution Width CV 12.6 % (11.6-14.6); RBC Distribution Width SD 41.3 fl (35.1-43.9); Red Blood Count 4.33 M/mm3 (4.2-5.4)
[2021-06-22 10:21] LABS: Color, Urine Yellow (Yellow); Glucose, Dipstick Normal (Normal); Ketone-Dipstick 5 mg/dl (Negative); Leukocyte Esterase-Dipstick 500 /ul (Negative); Nitrite-Dipstick Negative (Negative); Occult Blood-Urine 150 /ul (Negative); Protein-Dipstick 30 mg/dl (Negative); Specific Gravity, Urine 1.015 (1.002-1.030); Urine Clarity Cloudy (Clear); Urine Urobilinogen 8 mg/dl (Normal)
[2021-06-22 10:22] LABS: Urine Bilirubin Dipstick 1 mg/dL (Negative)
[2021-06-22 10:27] LABS: Bacteria 3+ /hpf (None Seen); Squamous Epithelial Cells - UA 0-5 SEEN /hpf (5-10); White Blood Cells >100 SEEN /hpf (0-5)
[2021-06-22 10:45] LABS: Internal QC Validated? YES +Cl - CLEAR BKGD; Pregnancy, Serum, hCG Quali. NEGATIVE Negative
[2021-06-22 10:46] LABS: Anion Gap 7 (5-15); BUN 17 mg/dL (7-18); BUN/Creat Ratio 22.6 RATIO (10-20); Calcium,Total 8.7 mg/dL (8.5-10.1); Chloride 106 mmol/L (98-107); Creatinine, Serum 0.75 mg/dL (0.55-1.02); EST Glomerular Filtration Rate 92 mL/min (>60); Est Glom Filt Rate - Afr Amer 112 mL/min (>60); Estimated Creatinine Clearance 93.31 ml/min; Glucose 97 mg/dL (74-106); Potassium 3.5 mmol/L (3.5-5.1); Sodium Level 139 mmol/L (136-145)
[2021-06-22 10:53] LABS: Internal QC Validated? YES +Cl - CLEAR BKGD; Pregnancy, Urine Negative Negative
[2021-06-22] MEDS: Cephalexin 250 MG Capsule 500 MG PO (12:19)
[2021-06-22 12:20] VITALS: BP 128/79; PULSE 72; RESP 16; TEMP 36; O2SAT 98
== END 2021-06-22 12:22 | disposition home or self-care (01) ==
PROVIDERS: Nurse Practitioner; Emergency Provider Student in an Organized Health Care Education/Training Program; PCP Family Medicine; Visit Provider Student in an Organized Health Care Education/Training Program
DX: N39.0 Urinary tract infection, site not specified (principal); N13.2 Hydronephrosis with renal and ureteral calculous obstruction; F17.210 Nicotine dependence, cigarettes, uncomplicated
CPT/HCPCS: 84703; 80048; J2405; 74176; 81001; 87086; 81025; 85025; J7030; A4216

== ENCOUNTER 2021-06-22 19:04 | Observation (INO) | payer MEDICAID, SELFPAY ==
[2021-06-22 18:42] VITALS: BMI 32.4
[2021-06-22 18:50] VITALS: BP 124/83; PULSE 101; RESP 18; TEMP 36.4; O2SAT 90
[2021-06-22] MEDS: Morphine 4 MG/ML Syringe IV (19:25)
[2021-06-22] MEDS: 0.9% Saline Lock 10 ML Syringe IV ×2 (19:26→20:58)
[2021-06-22] MEDS: Dextrose 5%-Lactated Ringers 1,000 ML 150 ML IV (20:54)
[2021-06-22] MEDS: Ketorolac 30 MG/ML Syringe IV (20:55)
[2021-06-22] MEDS: Cefazolin 1 GM/50 ML BAG IV (20:55)
[2021-06-22 21:27] LABS: Internal QC Validated? YES +Cl - CLEAR BKGD; Pregnancy, Urine Negative Negative
[2021-06-22] MEDS: Famotidine 20 MG Tablet PO (22:13)
[2021-06-22] MEDS: Tamsulosin HCl 0.4 MG Capsule PO (22:13)
[2021-06-22] MEDS: traZODone 50 MG Tablet PO (22:13)
[2021-06-22] MEDS: Gabapentin 300 MG Capsule 900 MG PO (22:13)
[2021-06-23] VITALS (7 sets, daily range): BP systolic 90–110; BP diastolic 54–68; PULSE 62–83; RESP 16–18; TEMP 36.5–37.4; O2SAT 97–100; BMI 31.2
[2021-06-23] MEDS: 0.9% Normal Saline 1,000 ML 999 ML IV (00:26)
[2021-06-23] MEDS: Ketorolac 30 MG/ML Syringe IV ×2 (05:05→13:32)
[2021-06-23] MEDS: Cefazolin 1 GM/50 ML BAG IV (05:05)
[2021-06-23] MEDS: Dextrose 5%-Lactated Ringers 1,000 ML 150 ML IV (05:11)
[2021-06-23 05:43] LABS: Absolute Lymphocyte Count 0.81 X10^3/uL (0.83-4.51); Absolute Neutrophil Count 8.4 X10^3/uL (2.0-7.7); Basophil# 0.02 X10^3/uL; Basophil% 0.2 % (0-1); Eosinophil# 0.06 X10^3/uL; Eosinophils% 0.6 % (0-5); Hematocrit 33.6 % (37-47); Hemoglobin 11.6 g/dL (12.0-15.0); Lymphocyte # 0.81 X10^3/ul (0.83-4.51); Lymphocyte % 8.1 % (19-41); Mean Corp Hgb Conc 34.5 g/dL (32-36); Mean Corpuscular Hgb 31.4 pg (27.0-32.0); Mean Corpuscular Volume 91.1 fL (81-99); Mean Platelet Vol. 10.2 fl (6.2-12.0); Monocyte# 0.65 X10^3/uL; Monocyte% 6.5 % (0-10); NRBC Flagged by Analyzer 0 % (0-5); Neutrophil # 8.38 X10^3/uL (2.7-7.7); Neutrophil % 84.3 % (47-70); Platelet Count 142 K/mm3 (150-450); RBC Distribution Width CV 12.7 % (11.6-14.6); Red Blood Count 3.69 M/mm3 (4.2-5.4)
--- NOTE | 2021-06-23 05:55 | EKG12_ITS ---
Test Reason : PRE-OP Blood Pressure : / mmHG Vent. Rate : 068 BPM Atrial Rate : 068 BPM P-R Int : 122 ms QRS Dur : 100 ms QT Int : 398 ms P-R-T Axes : 035 082 047 degrees QTc Int : 423 ms Normal sinus rhythm Normal ECG No previous ECGs available Confirmed by GUILHERME MORRIS, [place] ([id number]), advertising editor ESTEPHANIA VAZQUEZ ([id number]) on 06/26/2021 10:48:47 AM Referred By: BERTA MARIANO Confirmed By:AUSTIN VANEGAS MD
[2021-06-23 05:56] LABS: Partial Thromboplast Time 29.9 Seconds (24.1-36.2)
--- NOTE | 2021-06-23 11:27 | NURSING ---
Pt taken off the floor via bed to go to surgery at this time.
--- NOTE | 2021-06-23 12:22 | HP.PCM_ITS ---
HPI - General General Date of Admission: 06/22/21 HPI Narrative CITLALI GOULD, is a 35 F who presents with uncontrolled pain, nausea from a distal right ureteral stone diagnosed in the ER. No fever or chills, but she is crying from the pain. History of stones and had gastric bypass. [facility] Medical History (Updated 06/23/21 @ 12:[address] Desirae Steen MD) Allergies Anemia Bilateral headaches Carpal tunnel syndrome history of gastric byoass History of seizures Hypoglycemia Sleep apnea Ureteral calculus Vitamin D deficiency Home Medications famotidine 20 mg PO BID #28 tab 10/29/15 [Rx Last Taken 04/21/16] gabapentin 900 mg PO QHS 08/16/16 [History Last Taken Unknown] lisdexamfetamine [Vyvanse] 20 mg PO DAILY 10/18/20 [History Last Taken Unknown] cephalexin 500 mg PO Q6 #28 cap 06/22/21 [Rx Last Taken Unknown] ondansetron 4 mg PO Q8H PRN #10 tab 06/22/21 [Rx Last Taken Unknown] oxycodone-acetaminophen [Percocet] 1 tab PO Q6H PRN 3 Days #10 tab 06/22/21 [Rx Last Taken Unknown] tamsulosin [Flomax] 0.4 mg PO DAILY #4 cap 06/22/21 [Rx Last Taken Unknown] trazodone 50 mg PO QHS 06/22/21 [History Last Taken Unknown] Allergy/AdvReac Type Severity Reaction Status Date / Time adhesive tape Allergy Other Verified 06/22/21 09:15 aspirin Allergy Other Verified 06/22/21 09:15 bupropion [From Wellbutrin] Allergy Other Verified 06/22/21 09:15 latex Allergy Hives Verified 06/22/21 09:15 NSAIDS (Non-Steroidal Allergy Other Verified 06/22/21 09:15 Anti-Inflamma bupropion HCl AdvReac Other Verified 06/22/21 09:15 [From Wellbutrin] venlafaxine [From Effexor] AdvReac Upset Verified 06/22/21 09:15 Stomach Family History Other Cancer Surgical History History of section S/P tubal ligation Social History Smoking Status: Current every day smoker tobacco type: cigarettes quit status: not considering quitting counseling given: provider counseling alcohol intake: never substance use type: does not use what type of physical activity do you participate in: none ROS Constitutional Constitutional: Denies chills, fatigue or fever(s) Eyes Eyes: Denies change in vision ENT HEENT: Reports systems reviewed and no addt'l complaints, except as documented Cardiovascular Cardiovascular: Reports abdominal pain and nausea; Denies chest pain or dyspnea Respiratory/Chest Respiratory/Chest: Denies chest congestion, cough or dyspnea Gastrointestinal Gastrointestinal: Reports abdominal pain, cramping and nausea Genitourinary Genitourinary: Reports difficulty urinating, flank pain and urinary urgency Musculoskeletal Musculoskeletal: Reports systems reviewed and no addt'l complaints, except as documented Integumentary Integumentary: Reports systems reviewed and no addt'l complaints, except as documented Neurologic Neurologic: Reports systems reviewed and no addt'l complaints, except as documented Psychiatric Psychiatric: Reports systems reviewed and no addt'l complaints, except as documented Endocrine Endocrinology: Reports systems reviewed and no addt'l complaints, except as documented Hematologic/Lymphatic Hematologic/Lymphatic: Reports systems reviewed and no addt'l complaints, except as documented Allergic/Immunologic Allergic/Immunologic: Reports systems reviewed and no addt'l complaints, except as documented Vital Signs Vital Signs Vital Signs: 06/22/21 18:50 06/22/21 19:50 06/23/21 02:00 Temperature 97.5 F L 97.7 F L Temperature Source Oral Temporal Pulse Rate 101 H 69 Respiratory Rate 18 16 Respiratory Effort Normal Non-Labored Respiratory Depth Normal Respiratory Pattern Normal Blood Pressure 124/83 H 110/61 Blood Pressure Mean 96 77 Blood Pressure Source Monitor Monitor Blood Pressure Position Semi-Fowlers Semi-Fowlers Blood Pressure Location Right Arm Right Forearm Pulse Ox 90 100 Oxygen Delivery Method Room Air Room Air Room Air 06/23/21 10:10 06/23/21 11:18 Temperature 99.1 F 99.1 F Temperature Source Oral Oral Pulse Rate 70 70 Respiratory Rate 16 18 Respiratory Effort Respiratory Depth Respiratory Pattern Blood Pressure 90/58 L 97/54 L Blood Pressure Mean 68 68 Blood Pressure Source Monitor Monitor Blood Pressure Position Semi-Fowlers Semi-Fowlers Blood Pressure Location Right Arm Left Arm Pulse Ox 99 99 Oxygen Delivery Method Room Air Room Air Weight Weight: 85.275 kg Body Mass Index (BMI) 31.2 Physical Exam Const alert and oriented x3 General Appearance: well kempt, well developed and ill appearing Positive for acutely (crying due to severe pain on right side abdomen and back) HEENT normocephalic, head/scalp atraumatic, hearing grossly normal bilaterally, external ears normal and external nose normal Eyes no scleral icterus General Eye: normal appearance of both eyes Neck supple General: trachea midline Lymph Lymphatic: no lymphedema noted Chest Chest: symmetrical chest wall rise Resp normal respiratory effort, normal air movement, no retractions and no use of accessory muscles Effort and Inspection: able to speak in complete sentences and symmetric chest movement Cardio regular rate and regular rhythm GI soft to palpation and non-distended Bladder / Kidney Exam: CVA tenderness right Back/Spine General Back: CVA tenderness right Extremity normal to inspection Skin no rashes or lesions noted, no wounds, skin turgor normal, no jaundice, no petechiae and no mottling Neuro oriented x3, CN's II-XII intact bilaterally and moves all extremities Psych mental status grossly normal and thought process normal Results Lab / Micro Data Result Diagrams: 06/23/21 05:35 Labs: Laboratory Results - last 24 hr 06/22/21 20:15: Urine Test Negative 06/23/21 05:35: WBC 10.0, RBC 3.69 L, Hgb 11.6 L, Hct 33.6 L, MCV 91.1, MCH 31.4, MCHC 34.5, RDW Std Deviation 42.0, RDW Coeff of Gail 12.7, Plt Count 142 L, MPV 10.2, Immature Gran % (Auto) 0.300, Neut % (Auto) 84.3 H, Lymph % (Auto) 8.1 L, [place] % (Auto) 6.5, Eos % (Auto) 0.6, Baso % (Auto) 0.2, Absolute Neuts (auto) 8.4 H, Absolute Lymphs (auto) 0.81 L, Nucleated RBC % 0 06/23/21 05:35: APTT 29.9 Micro: Microbiology 06/22/21 20:15 Nasal Secretion SARS-CoV-2 Antigen (Rapid) - Final Assessment & Plan Assessment/Plan (1) Hydronephrosis: (2) Kidney calculi: (3) Ureteral calculus: PLAN: supportive care antibiotics surgery with cystoscopy, ureteroscopy, laser lithotripsy and ureteral stent insertion informed consent obtained
--- NOTE | 2021-06-23 12:28 | OP.PCM_ITS ---
Problems Associated Problem List Diagnoses (1) Ureteral calculus: (2) Hydronephrosis: Report of Operation Date of Procedure: 06/23/21 Pre-Operative Diagnosis: right ureteral stone with hydronephrosis Post-Operative Diagnosis: same Surgery/Procedure Performed:: cystoscopy, right ureteral stent insertion Surgeon: Desirae tSeen Type of Anesthesia: General Description of Procedure: The patient is a 35-year-old female with a large right distal ureteral calculus and hydronephrosis who presents for surgical intervention. Informed consent was obtained. The patient was taken to the operating room placed on the operating room table. Anesthesia monitored the head, neck, airway, IV access and vital signs throughout the case. Once anest hesia was appropriate ministered, the patient was placed into dorsal lithotomy position was prepped and draped in usual sterile fashion. At this time the cystoscope was inserted through the urethra under direct visualization into the urinary bladder which was filled with cloudy purulent urine. At this time the bladder was emptied and a large stone was seen at the base of the bladder. It was grasped with forceps and removed. On further evaluation, the right ureteral orifice was emptying some purulent fluid and was edematous and erythematous and appearance. The decision was made to place a temporary ureteral stent in order to adequately drain the right kidney. A 6 [place] 24 JJ stent with a string intact was used. Good positioning was confirmed on fluoroscopic visualization in the kidney and the distal aspect was seen within the urinary bladder. At this time the patient's bladder was emptied and the case was terminated. The patient was awakened and taken the recovery room in good condition. There were no complications during this procedure. Grafts/Implants Used: [id number] JJ stent Complications None Admit VTE Documentation VTE Present on Admission: Yes VTE Mechan Device Prophylaxis: SCD's VTE Pharm Prophylaxis ordered?: No Reason prophylaxis not ordered:: Treatment Not Indicated
--- NOTE | 2021-06-23 12:30 | CALC_PTH ---
PATIENT: CITLALI GOULD LOC: MS3 U#:[id number] AGE/SX: 35/F ROOM: [facility] [place]06/22/[address]: Dr. Desirae Steen MD : 1985 BED: 1 DIS: 06/23/2021 SPEC #: [id number] RECD: 06/23/21 13:35 STATUS: KENDRA ESPINO #: [id number] BOBY: 06/23/21 12:[address]: Desirae Steen DEPT: SURGICAL PATHOLOGY RECD BY: Bri Anderson ENTERED: 06/26/21 08:08 SP TYPE: Calculi OTHR DR: Dr. Paul Cheema MD Tissues: CALCULI Procedures: Surgery Specimen Level I HEADER OPERATION: Cystoscopy, right ureteral stent insertion PRE-OP DIAGNOSIS: Right ureteral stone with hydronephrosis TISSUE SUBMITTED: Right ureteral calculi, urinary GROSS DIAGNOSIS A fragment of stone, clinically right ureteral calculus. SJ:shellie 06/26/2021 COMMENT The calculus is submitted in its entirety for chemical stone analysis. The results from this study will be reported separately. GROSS DESCRIPTION Received without fixative labeled with the patient's name and designated right ureteral calculi. The specimen consists of a alcantara-light brown stone measuring 0.7 x 0.4 x 0.3 cm. The entire specimen is submitted for stone analysis. / FRANC:shellie 06/26/2021 CPT: 51874
--- NOTE | 2021-06-23 12:32 | PCM.DC ---
Discharge Instructions Diet Discharge Diet: No restrictions Activity Discharge Activity: Return to Normal Activity Dressing / Incision Call your doctor if you observe: Fever of 101 or Higher, Inability to urinate and Inability to have a bowel movement Additional Dressing/Incision Instructions:: Carefully pulled the string and remove the right ureteral stent tomorrow morning Follow Up Care Please Follow Up With: Desirae Steen MD When: call office for follow up appt. Test Results: Test results from this visit will be discussed in further detail at your follow-up appointment, if applicable. Discharge Plan Admission Admit Date/Time: 06/22/21 19:04 Attending Provider: Desirae Steen Primary Care Provider: Paul Cheema Discharge Orders/Prescriptions Prescriptions: Continued famotidine 20 MG tablet 20 mg PO BID Qty: 28 RF: 0 gabapentin 300 MG capsule 900 mg PO QHS RF: 0 Vyvanse 20 mg Capsule 20 mg PO DAILY RF: 0 cephalexin 500 mg capsule 500 mg PO Q6 Qty: 28 RF: 0 oxycodone-acetaminophen [Percocet] 5-325 mg tablet 1 tab PO Q6H PRN (Reason: pain) 3 Days Qty: 10 RF: 0 ondansetron 4 mg tablet,disintegrating 4 mg PO Q8H PRN (Reason: nausea and vomiting) Qty: 10 RF: 0 trazodone 50 mg tablet 50 mg PO QHS RF: 0 Discontinued tamsulosin [Flomax] 0.4 mg capsule 0.4 mg PO DAILY Qty: 4 RF: 0 Referrals / Follow Up: Paul Cheema MD [Primary Care Provider] - Disposition Disposition (needs filled in before D/C Order can be placed): Home, Self Care
== END 2021-06-23 15:57 | disposition home or self-care (01) ==
PROVIDERS: Anesthesiology; Admitting Provider Urology; PCP Family Medicine; Visit Provider Urology
PROC: 0TJ98ZZ Inspection of Ureter, Via Natural or Artificial Opening Endoscopic (ICD-10-PCS; CPT 52352; principal; 2021-06-23 12:20)
DX: N13.2 Hydronephrosis with renal and ureteral calculous obstruction (principal); G40.909 Epilepsy, unspecified, not intractable, without status epilepticus; Z98.84 Bariatric surgery status; G47.30 Sleep apnea, unspecified; Z79.899 Other long term (current) drug therapy; F17.210 Nicotine dependence, cigarettes, uncomplicated
CPT/HCPCS: 52332; 00910; C2617; 36415; 74176; 76000; 80048; 81001; 81025; 82360; 84703; 85025; 85730; 87077; 87086; 87088; 87186; 87426; 88300; 93005; 96361; 96365; 96366; 96374; 96375; 96376; 99218; 99285; 99406; J7030; A4216; G0378; J2405

== ENCOUNTER 2021-09-14 12:43 | Day surgery (SDC) | payer MEDICAID, SELFPAY ==
[2021-09-14 13:17] VITALS: BP 103/67; PULSE 66; RESP 16; TEMP 36.2; O2SAT 100
[2021-09-14] MEDS: Lactated Ringers 1,000 ML 15 ML IV (13:24)
[2021-09-14] MEDS: Cefazolin 2 GM in 0.9% Normal Saline 100 ML IV (14:25)
--- NOTE | 2021-09-14 14:39 | PCM.DC.BLA ---
Discharge Plan Admission Attending Provider: Desirae Steen Primary Care Provider: Paul Cheema Discharge Orders/Prescriptions Prescriptions: No Action gabapentin 300 MG capsule 900 mg PO QHS Label Comments: TAKE 1 TO 2 CAPSULES BY MOUTH DAILY AT BEDTIME. Vyvanse 20 mg Capsule 60 mg PO DAILY ondansetron 4 mg tablet,disintegrating 4 mg PO Q8H PRN (Reason: nausea and vomiting) Qty: 10 0RF trazodone 50 mg tablet 50 mg PO QHS Label Comments: take 1 tablet by mouth at bedtime folic acid 1 mg tablet 1 mg PO DAILY ergocalciferol (vitamin D2) [Vitamin D2] 1,250 mcg (50,000 unit) capsule 50,000 mcg PO QWEEK Label Comments: take 1 capsule by mouth TWO TIMES PER WEEK vitamin B complex Injectable 1 ea QMONTH Referrals / Follow Up: Paul Cheema MD [Primary Care Provider] - Disposition Disposition (needs filled in before D/C Order can be placed): Home, Self Care
--- NOTE | 2021-09-14 14:40 | PCM.OPRPT ---
Report of Operation Date of Procedure: 09/14/21 Pre-Operative Diagnosis: Right renal calculus Post-Operative Diagnosis: Same Surgery/Procedure Performed:: Right renal extracorporal shockwave lithotripsy Surgeon: Desirae Steen Type of Anesthesia: General Description of Procedure: The patient is a 35-year-old female with a history of stones and identified as having a large right lower pole calculus. She now presents for definitive surgical intervention. We discussed placing a right ureteral stent, the patient does not tolerate stents well and she agreed to proceed with the risk that she may need to be present for insertion of a right ureteral stent if she has difficulty with passing stone fragments. Informed consent was obtained. The patient was taken the operating room and placed on the operating room table. Anesthesia monitored the head, neck, airway, IV access and vital signs throughout the case. Once anesthesia was appropriate ministered, the patient was aligned with the lithotripter. The stones were easily visualized. 3000 shocks were applied and the stones appeared to be well fragmented at the conclusion of the case. The patient was then awakened and taken the recovery room in good condition. There were no complications during this procedure. Complications None Admit VTE Documentation VTE Present on Admission: Yes VTE Mechan Device Prophylaxis: SCD's VTE Pharm Prophylaxis ordered?: No Reason prophylaxis not ordered:: Treatment Not Indicated
--- NOTE | 2021-09-14 14:44 | DCINST_ITS ---
Discharge Instructions Diet Discharge Diet: No restrictions Activity Discharge Activity: Return to Normal Activity Dressing / Incision Call your doctor if you observe: Fever of 101 or Higher, Inability to urinate and Inability to have a bowel movement Follow Up Care Please Follow Up With: Desirae Steen MD When: in 2-3 weeks with KUB, call for appt Test Results: Test results from this visit will be discussed in further detail at your follow- up appointment, if applicable. Discharge Plan Admission Attending Provider: Desirae Steen Primary Care Provider: Paul Cheema Discharge Orders/Prescriptions Prescriptions: New ondansetron HCl [ondansetron HCl] 8 mg tablet 8 mg PO Q8H PRN PRN (Reason: Nausea) 7 Days Qty: 20 0RF oxycodone-acetaminophen [oxycodone-acetaminophen] 5-325 mg tablet 2 tab PO Q8H PRN PRN (Reason: Pain) 7 Days Qty: 20 0RF Continued gabapentin 300 MG capsule 900 mg PO QHS Label Comments: TAKE 1 TO 2 CAPSULES BY MOUTH DAILY AT BEDTIME. Vyvanse 20 mg Capsule 60 mg PO DAILY ondansetron 4 mg tablet,disintegrating 4 mg PO Q8H PRN (Reason: nausea and vomiting) Qty: 10 0RF trazodone 50 mg tablet 50 mg PO QHS Label Comments: take 1 tablet by mouth at bedtime folic acid 1 mg tablet 1 mg PO DAILY ergocalciferol (vitamin D2) [Vitamin D2] 1,250 mcg (50,000 unit) capsule 50,000 mcg PO QWEEK Label Comments: take 1 capsule by mouth TWO TIMES PER WEEK vitamin B complex Injectable 1 ea QMONTH Referrals / Follow Up: Paul Cheema MD [Primary Care Provider] - Disposition Disposition (needs filled in before D/C Order can be placed): Home, Self Care
[2021-09-14 15:24] VITALS: BP 103/67; BP 114/82; PULSE 60; RESP 16; TEMP 36.3; O2SAT 93
[2021-09-14 15:30] VITALS: BP 101/76; BP 103/67; PULSE 59; RESP 16; O2SAT 97
[2021-09-14 15:40] VITALS: BP 103/67; BP 112/76; PULSE 59; RESP 16; O2SAT 97
[2021-09-14 15:47] VITALS: BP 103/67; BP 104/70; PULSE 55; RESP 16; TEMP 36.4; O2SAT 98
[2021-09-14 16:01] VITALS: BP 103/67; BP 110/70; PULSE 60; RESP 16; O2SAT 98
== END 2021-09-14 16:23 | disposition home or self-care (01) ==
LOC: SDC 12:44 → AC 12:46
PROVIDERS: PCP Family Medicine; Referring Provider Urology; Visit Provider Urology
PROC: (CPT 50590; principal; 2021-09-14 14:20)
DX: N20.0 Calculus of kidney (principal); Z98.84 Bariatric surgery status; N39.0 Urinary tract infection, site not specified; R35.0 Frequency of micturition; R39.15 Urgency of urination; F17.210 Nicotine dependence, cigarettes, uncomplicated; K21.9 Gastro-esophageal reflux disease without esophagitis
CPT/HCPCS: 50590; J7120; J2405

== ENCOUNTER → 2021-10-04 | Outpatient (CLI) | payer MEDICAID, SELFPAY ==
--- NOTE | 2021-10-04 15:11 | RAD_ITS ---
STUDY: X-RAY - ABDOMEN/PELVIS REASON FOR EXAM: Female, 35 years old. KIDNEY CALC TECHNIQUE: Single AP view of the abdomen / pelvis. COMPARISON: Comparison is made with prior study dated 04/04/2014. FINDINGS: There is a moderate amount of colonic fecal material. Questionable faint calcifications seen overlying the midportion of the right kidney. IUD is seen within the pelvis. Normal visualized osseous structures. RAD/Abdomen Single View IMPRESSION: Questionable faint calcification overlying the midportion of the right kidney. IUD is seen within the pelvis. Electronically Signed: Jorden Liu MD at 15:25 EDT ,
== END | disposition home or self-care (01) ==
LOC: MTRAD 15:10
PROVIDERS: PCP Family Medicine; Referring Provider Urology; Visit Provider Urology
DX: N20.0 Calculus of kidney (principal)
CPT/HCPCS: 74018

== ENCOUNTER → 2022-05-16 | Outpatient (CLI) | payer MEDICAID, SELFPAY ==
--- NOTE | 2022-05-16 13:24 | RAD_ITS ---
HISTORY: STONES. TECHNIQUE: XR Abdomen 1 View. COMPARISON: 10/04/2021. FINDINGS: BOWEL GAS PATTERN: Scattered mildly distended bowel loops. Possible small bowel wall thickening in the left lower quadrant. FREE AIR: Not assessed on supine view. CALCIFICATIONS: 5 mm calcification at the right renal shadow again noted. BONES: Unremarkable. SOFT TISSUES: Intrauterine device in the left pelvis again noted. RAD/Abdomen Single View IMPRESSION: Possible mild enteritis. Right nephrolithiasis. Electronically Signed: Luanne Martinez MD at 9:48 EST ,
== END | disposition home or self-care (01) ==
PROVIDERS: PCP Family Medicine; Referring Provider Urology; Visit Provider Urology
DX: N20.0 Calculus of kidney (principal)
CPT/HCPCS: 74018

== ENCOUNTER → 2022-07-11 | Outpatient (CLI) | payer MEDICAID, SELFPAY ==
--- NOTE | 2022-07-11 15:33 | US_ITS ---
INDICATION: R FLANK PAIN EXAMINATION: Ultrasound US Kidney(s) complete (eg, kidneys and bladder) TECHNIQUE: Gomez scale and color doppler images were obtained of the kidneys. COMPARISON: None. FINDINGS: RIGHT KIDNEY:11.4 x 5.7 x 3.9 cm. The cortex is 13 mm. There is no hydronephrosis. There is a lower pole nonobstructive 7 x 11 mm stone. LEFT KIDNEY: 10.9 x 5.2 x 5.6 cm. The cortex is 20 mm. There is no hydronephrosis. No shadowing calculus or perinephric collection is demonstrated. There is a 1 cm cyst. URINARY BLADDER: Partially distended with a volume of 39 cc. US/Kidney and Bladder IMPRESSION: Nonobstructing right renal stone. Left renal cyst. Electronically Signed: John Angeles DO at 17:59 EDT ,
== END | disposition home or self-care (01) ==
LOC: US 15:32
PROVIDERS: PCP Family Medicine; Referring Provider Urology; Visit Provider Urology
DX: R10.9 Unspecified abdominal pain (principal); N20.0 Calculus of kidney
CPT/HCPCS: 76770

== ENCOUNTER → 2022-07-17 | Outpatient (CLI) | payer MEDICAID, SELFPAY ==
--- NOTE | 2022-07-17 12:37 | RAD_ITS ---
INDICATION: KUB- KIDNEY STONE EXAMINATION/TECHNIQUE: X-RAY - XR Abdomen 1 View COMPARISON: None FINDINGS: BOWEL GAS PATTERN: Non-obstructive. Moderate amount retained stool in the colon. FREE AIR: Not assessed on a single supine view. ORGANOMEGALY: Not seen. CALCIFICATIONS: No abnormal calcifications observed. LOWER CHEST: No acute pathology. BONES AND SOFT TISSUES: No acute pathology. RAD/Abdomen Single View IMPRESSION: No calcifications seen projecting over the expected locations of the kidneys or ureters. Electronically Signed: Romeo Hernandez MD at 19:21 EDT ,
== END | disposition home or self-care (01) ==
LOC: MTRAD 12:35
PROVIDERS: PCP Family Medicine; Referring Provider Urology; Visit Provider Urology
DX: N20.0 Calculus of kidney (principal)
CPT/HCPCS: 74018

== ENCOUNTER → 2024-03-02 | Outpatient (CLI) | payer OTHER, SELFPAY ==
--- NOTE | 2024-03-02 11:09 | RAD_ITS ---
EXAM: XR LUMBOSACRAL SPINE, 2 OR 3 VIEWS CLINICAL INDICATION: LUMBAR RADIOPATHY TECHNIQUE: Frontal and lateral views of the lumbar spine and sacrum. COMPARISON: No relevant prior studies available. FINDINGS: VERTEBRAE: Unremarkable. Preserved vertebral body height. No fracture. No spondylolisthesis. Preservation of the normal lumbar lordosis. No significant facet arthropathy. DISC SPACES: There is mild disc space narrowing at L5-S1. GASTROINTESTINAL TRACT: Unremarkable as visualized. Included bowel gas pattern is non-obstructive. RAD/Lumbar Spine 2 or 3 Views IMPRESSION: Mild degenerative changes with disc space narrowing at L5-S1. There are no acute osseous abnormalities. Electronically Signed: Jace Raines MD at 0:13 EST ,
== END | disposition home or self-care (01) ==
PROVIDERS: PCP Family Medicine; Referring Provider Chiropractor; Visit Provider Chiropractor
DX: M54.16 Radiculopathy, lumbar region (principal)
CPT/HCPCS: 72100

== ENCOUNTER 2024-03-03 09:13 | Emergency (ER) | payer OTHER, SELFPAY ==
[2024-03-03 09:13] VITALS: BP 127/104; PULSE 104; RESP 20; TEMP 36.8; O2SAT 99; BMI 33.8
[2024-03-03] MEDS: Ondansetron 4 MG/2 ML Vial IV (10:07)
[2024-03-03] MEDS: morphine 8 MG/ML Syringe IV (10:07)
--- NOTE | 2024-03-03 10:18 | EDS_ITS ---
HPI History of Present Illness Chief Complaint: Back Informant: patient Narrative Narrative: Patient is a 38-year-old female with history of kidney stones, gastric bypass, seizure disorder presenting for worsening back pain. Patient states that about 2 and half months ago she thought she maybe pulled a muscle in her left butt cheek. She been dealing with that pain however it became unbearable about 2 and half weeks ago. She saw a chiropractor who told her that she had muscle spasms and a ruptured disc in her back. She states that she has been having severe pain since yesterday. She notes that she had outpatient x-ray ordered yesterday. She tells me the past 2 and half weeks she does not feel it she has had much control of her bladder. She denies any incontinence but states that she has to really push to urinate. She denies any saddle anesthesia. She does feel that she has decrease in station her left calf and she states just be careful when shaving her legs. She notes that she has been taking ibuprofen with only minimal relief of the pain but she is not supposed to take NSAIDs because of her history of gastric bypass. Denies any trauma or injuries. Does not feel that she is dragging her legs. Says she has a hard time getting comfor table. Movement makes it worse. States the pain in her back is over her tailbone. [facility] Medical History Right renal stone Wears glasses Wears contact lenses Restless legs Smoker Ureteral calculus Sleep apnea history of gastric byoass Vitamin D deficiency History of seizures Hypoglycemia Bilateral headaches Carpal tunnel syndrome Anemia Allergies Home Medications ?Medication ?Instructions ?Recorded ?Last Taken ?Type gabapentin 300 mg capsule 900 mg PO QHS 08/16/16 Unknown History lisdexamfetamine 20 mg capsule 60 mg PO DAILY 10/18/20 Unknown History (Vyvanse) ondansetron 4 mg disintegrating 4 mg PO Q8H PRN nausea and 06/22/21 Unknown Rx tablet vomiting #10 tabs trazodone 50 mg tablet 50 mg PO QHS 06/22/21 Unknown History ergocalciferol (vitamin D2) 1,250 50,000 mcg PO QWEEK 09/07/21 Unknown History mcg (50,000 unit) capsule (Vitamin D2) folic acid 1 mg tablet 1 mg PO DAILY 09/07/21 Unknown History vitamin B complex 1 ea QMONTH 09/07/21 Unknown History ondansetron HCl 8 mg tablet 8 mg PO Q8H PRN PRN Nausea 7 days 09/14/21 Unknown Rx #20 TABLETS oxycodone-acetaminophen 5 mg-325 2 tab PO Q8H PRN PRN Pain 7 days 09/14/21 Unknown Rx mg tablet #20 tabs omeprazole 20 mg capsule,delayed 20 mg PO DAILY #14 CAPSULES 03/03/24 Unknown Rx release ondansetron 4 mg disintegrating 4 mg PO Q8H PRN PRN Nausea #20 tabs 03/03/24 Unknown Rx tablet oxycodone-acetaminophen 5 mg-325 1 tab PO Q6H PRN pain 3 days #12 03/03/24 Unknown Rx mg tablet (Percocet) tabs prednisone 20 mg tablet 40 mg (2 x 20 mg) PO DAILY #10 tabs 03/03/24 Unknown Rx Allergy/AdvReac Type Severity Reaction Status Date / Time adhesive tape Allergy Other Verified 03/03/24 09:15 aspirin Allergy Other Verified 03/03/24 09:15 bupropion (From Wellbutrin) Allergy Other Verified 03/03/24 09:15 latex Allergy Hives Verified 03/03/24 09:15 NSAIDS (Non-Steroidal Allergy Other Verified 03/03/24 09:15 Anti-Inflamma bupropion HCl (From AdvReac Other Verified 03/03/24 09:15 Wellbutrin) venlafaxine (From Effexor) AdvReac Upset Verified 03/03/24 09:15 Stomach Family History Other Cancer Surgical History History of gastric bypass History of ear surgery History of lithotripsy Hx of carpal tunnel repair S/P tubal ligation History of section Social History Smoking Status: Current every day smoker tobacco type: cigarettes quit status: not considering quitting alcohol intake: never substance use type: does not use what type of physical activity do you participate in: none ROS ROS ED Constitutional Constitutional ED: Denies chills or fever(s) Respiratory/Chest Respiratory/Chest: Denies dyspnea Gastrointestinal Gastrointestinal: Denies abdominal pain, nausea or vomiting Genitourinary Genitourinary ED: Denies dysuria, hematuria or urinary frequency Musculoskeletal Musculoskeletal: Reports back pain Integumentary Denies rash Neurologic Neurologic: Reports paresthesias LLE Psychiatric Psychiatric: Reports anxiety EXAM Physical Exam Const Vital Signs: 03/03/24 09:13 03/03/24 11:13 Temperature 98.2 F Temperature Source Oral Pulse Rate 104 H 78 Respiratory Rate 20 H 16 Blood Pressure 127/104 H 126/89 H Blood Pressure Mean 111 101 Pulse Ox 99 96 Oxygen Delivery Method Room Air Room Air Positive well nourished and well developed Constitutional Narrative: Sobbing in the room, uncomfortable secondary to pain General Appearance ED: well developed HEENT Reports moist mucous membranes Eyes PERRL Neck supple Resp normal respiratory effort and clear to auscultation bilaterally Cardio regular rate and regular rhythm Cardio Narrative: 2+ DP pulses GI normal to inspection, nondistended, normoactive bowel sounds, soft to palpation and non-tender Back/Spine no thoracic nor lumbar tenderness Back/Spine Narrative: Patient points to her sacrum as her area of pain. Is not highly reproducible with palpation. General Back: Negative for CVA tenderness Cervical Spine: Negative for cervical spine tenderness Thoracic Spine / Upper Back: Negative for paraspinal muscle tenderness Lumbar Spine / Lower Back: straight leg raise positive right and straight leg raise positive - left Extremity normal to inspection General Extremety ED: Negative for edema General Extremity: Negative for edema Neuro oriented x3 Neuro Narrative: Sensation intact to light touch in all dermatomes of the lower extremity. 5/5 strength with dorsal and plantarflexion of the feet. 5/5 strength with flexion of the hips. Sensorium / Orientation: alert Motor Exam: strength 5/5 throughout Psych mental status grossly normal Psych Narrative: Anxious Mood & Affect: tearful Skin no rashes or lesions noted and no wounds MDM MDM MDM Narrative Medical decision making narrative: Patient is evaluated for worsening back pain. The back pain seems more over her sacrum and radiates down her legs. She reports subjective paresthesias to her left calf. Vital signs upon arrival significant for mild tachycardia. Patient is sobbing upon arrival. She is able to ambulate however. Physical exam highly consistent with sciatica. Differential also includes piriformis syndrome, cauda equina syndrome, epidural abscess. Patient does not have any red flag symptoms consistent with cauda equina syndrome or risk factors for epidural abscess. She has normal rectal tone on exam (performed chaperoned with nursing staff) and does not have any urinary retention on postvoid bladder scan. Her symptoms are not consistent with kidney stone. She has 0-5 red blood cells with epithelial contamination. I do not think she requires kidney stone workup. Patient initially given 8 mg IV morphine as well as Zofran for symptom control. She has improvement until she walks to the bathroom. After coming back from the bathroom she starts crying again saying her pain is back. She is given dose of IV Toradol and additional 6 mg IV morphine. On repeat evaluation patient is now laying much more comfortably in the bed. She still has pain but has improved. At this time I do not think she requires admission for intractable back pain. I do not think she requires an emergent MRI. Will be discharged home with short course of steroids, Percocet and Zofran. Given return precautions and follow-up information for spine. Patient verbalized agreement or stands plan. Mother at the bedside is also in agreement. Patient discharged home in stable and improved condition. Discussed risk and benefits of patient of prednisone since she has had prior gastric surgery. She is over 10 years out at this time I think a short course of prednisone (in addition to starting an antacid) outweighs the risk. Lab Data Attestation: I reviewed the patient's lab results. Labs: Laboratory Results - last 24 hr 03/03/24 10:55 Urine Color Yellow Urine Clarity Sl. Cloudy Urine pH 6.0 Ur Specific Galliano 1.020 Urine Protein 30 H Urine Glucose (UA) Normal Urine Ketones Negative Urine Occult Blood 50 H Urine Nitrite Negative Urine Bilirubin 1 H Urine Urobilinogen 4 H Ur Leukocyte Esterase 25 H Urine RBC 0-5 SEEN Urine WBC 0-5 SEEN Ur Squamous Epith Cells 5-10 SEEN Calcium Oxalate Crystal 1+ Urine Bacteria 2+ Urine Mucus 0 SEEN Urine Test Negative Discharge Plan Triage Chief Complaint: Back ED Provider: Virginia Peter Dx/Rx/DC Orders Clinical Impression: Acute left-sided back pain with sciatica Instructions: ED Sciatica Prescriptions: New oxycodone-acetaminophen [Percocet] 5-325 mg tablet 1 tab PO Q6H PRN (Reason: pain) 3 Days Qty: 12 0RF ondansetron 4 mg tablet,disintegrating 4 mg PO Q8H PRN PRN (Reason: Nausea) Qty: 20 0RF prednisone 20 mg tablet 40 mg PO DAILY Qty: 10 0RF omeprazole 20 mg capsule,delayed release(DR/EC) 20 mg PO DAILY Qty: 14 0RF No Action gabapentin 300 MG capsule 900 mg PO QHS Patient Comments: TAKE 1 TO 2 CAPSULES BY MOUTH DAILY AT BEDTIME. Vyvanse 20 mg Capsule 60 mg PO DAILY ondansetron 4 mg tablet,disintegrating 4 mg PO Q8H PRN (Reason: nausea and vomiting) Qty: 10 0RF trazodone 50 mg tablet 50 mg PO QHS Patient Comments: take 1 tablet by mouth at bedtime folic acid 1 mg tablet 1 mg PO DAILY ergocalciferol (vitamin D2) [Vitamin D2] 1,250 mcg (50,000 unit) capsule 50,000 mcg PO QWEEK Patient Comments: take 1 capsule by mouth TWO TIMES PER WEEK vitamin B complex Injectable 1 ea QMONTH ondansetron HCl [ondansetron HCl] 8 mg tablet 8 mg PO Q8H PRN PRN (Reason: Nausea) 7 Days Qty: 20 0RF oxycodone-acetaminophen [oxycodone-acetaminophen] 5-325 mg tablet 2 tab PO Q8H PRN PRN (Reason: Pain) 7 Days Qty: 20 0RF Primary Care Provider: Paul Cheema Referrals: Barney Rajan MD [Med Staff - Active Staff] - As soon as possible Paul Cheema MD [Primary Care Provider] - Activity Restrictions/Additional Instructions: Please follow-up with your primary care doctor as well as spinal specialist (you were given referral for Dr. Rajan). Call to arrange follow-up. If you develop fever, inability to walk, urinary incontinence or intractable pain please return to the emergency room. I have also prescribed an antacid to help align of your stomach while you are taking the steroids. Print Language: German Disposition Disposition: Home, Self Care
[2024-03-03 10:58] LABS: Mucous, Urine 0 SEEN /hpf (<or=2+)
[2024-03-03 11:04] LABS: Color, Urine Yellow (Yellow); Glucose, Dipstick Normal (Normal); Ketone-Dipstick Negative (Negative); Leukocyte Esterase-Dipstick 25 /ul (Negative); Nitrite-Dipstick Negative (Negative); Occult Blood-Urine 50 /ul (Negative); Protein-Dipstick 30 mg/dl (Negative); Urine Clarity Sl. Cloudy (Clear); Urine Urobilinogen 4 mg/dl (Normal)
[2024-03-03 11:06] LABS: Urine Bilirubin Dipstick 1 mg/dL (Negative)
[2024-03-03] MEDS: Ketorolac 15 MG/ML Vial IV (11:11)
[2024-03-03 11:13] VITALS: BP 126/89; PULSE 78; RESP 16; O2SAT 96
[2024-03-03 11:15] LABS: Bacteria 2+ /hpf (None Seen); Calcium Oxalate Crystals Ur 1+ /hpf (<or=2+); Red Blood Cells-Urine 0-5 SEEN /hpf (0-5); Squamous Epithelial Cells - UA 5-10 SEEN /hpf (5-10); White Blood Cells 0-5 SEEN /hpf (0-5)
[2024-03-03 11:16] LABS: Internal QC Validated? YES +Cl - CLEAR BKGD; Pregnancy, Urine Negative Negative
[2024-03-03] MEDS: morphine 8 MG/ML Syringe 6 MG IV (12:14)
[2024-03-03 13:09] VITALS: BP 133/71; PULSE 81; RESP 19; TEMP 36.7; O2SAT 99
== END 2024-03-03 13:10 | disposition home or self-care (01) ==
PROVIDERS: Emergency Provider Emergency Medicine; PCP Family Medicine; Visit Provider Emergency Medicine
DX: M54.42 Lumbago with sciatica, left side (principal); G40.909 Epilepsy, unspecified, not intractable, without status epilepticus; E55.9 Vitamin D deficiency, unspecified; G25.81 Restless legs syndrome; F17.210 Nicotine dependence, cigarettes, uncomplicated; Z98.84 Bariatric surgery status; Z87.442 Personal history of urinary calculi; Z79.899 Other long term (current) drug therapy
CPT/HCPCS: 81001; 81025; 96374; 96375; 96376; 99282; A4216; J2405

== ENCOUNTER → 2024-04-13 | Outpatient (CLI) | payer OTHER, SELFPAY ==
--- NOTE | 2024-04-13 08:45 | MRI_ITS ---
STUDY: MRI LUMBAR SPINE WITHOUT CONTRAST REASON FOR EXAM: Female, 38 years old. RADICULOPATHY, LOW BACK PAIN INTO L LEG TECHNIQUE: Standardized fat and water weighted pulse sequences were obtained in the sagittal and axial planes. COMPARISON: Lumbar spine x-rays March 02, 2024 FINDINGS: T12-L1: Normal endplates. Narrowed disc space with minimal annular bulge. Normal bilateral facet joints. Normal central canal and bilateral lateral recesses. Normal bilateral intervertebral neural foramina. Normal lumbar lordosis. There is no substantial scoliosis. Normal conus medullaris that terminates at T12-L1 L1-2: Normal endplates. Normal disc height, hydration and morphology. Normal bilateral facet joints. Normal central canal and bilateral lateral recesses. Normal bilateral intervertebral neural foramina. L2-3: Normal endplates. Normal disc height, hydration and morphology. Normal bilateral facet joints. Normal central canal and bilateral lateral recesses. Normal bilateral intervertebral neural foramina. L3-4: Normal endplates. Normal disc height, hydration and morphology. Normal bilateral facet joints. Normal central canal and bilateral lateral recesses. Normal bilateral intervertebral neural foramina. L4-5: Normal endplates. Normal disc height, hydration and morphology. Normal bilateral facet joints. Normal central canal and bilateral lateral recesses. Normal bilateral intervertebral neural foramina. L5-S1: Normal endplates. Normal disc height, desiccation and minor annular bulge with large broad-based left paracentral/posterolateral disc extrusion with posterior and inferior migration as well as mild superior migration of disc fragment. Normal bilateral facet joints. There is minor narrowing of the central canal but severe left recess and subarticular stenosis with compression of the thecal sac which is mildly displaced posteriorly towards the right as well as displacement and compression of the descending S1 nerve root. Normal visualized sacral ala. Normal visualized paraspinous soft tissue structures. No significant change since prior exam given inherent differences in imaging modalities MRI/Spine Lumbar (Routine) IMPRESSION: No acute fracture or other significant bony pathology. Severe spinal stenosis on the left at L5-S1 with compression and displacement of the thecal sac as well as the descending left S1 nerve root secondary to large broad-based left paracentral/posterolateral disc extrusion Electronically Signed: Abilio Sparrow MD at 16:11 EST Reading Location ID and State: [address] [place] [address] Tel , Service support ,
== END | disposition home or self-care (01) ==
PROVIDERS: PCP Family Medicine; Referring Provider Anesthesiology; Visit Provider Anesthesiology
DX: M54.16 Radiculopathy, lumbar region (principal)
CPT/HCPCS: 72148

== ENCOUNTER 2024-04-16 17:30 | Outpatient (RCR) | payer OTHER, SELFPAY ==
--- NOTE | 2024-04-10 07:03 | HP.PTEVAL ---
Patient's Visit Information Visit Information Visit Information: CITLALI GOULD is a 38 year old F referred to Physical Therapy by Dr. Shayne Blas MD with a diagnosis of LBP with L LE radiculopathy. Date of Evaluation: 04/09/24 Physical Therapist: Ambrose Calixto, PT, ATC Visit Plan Frequency: 2x /Week Duration: 2 Weeks Plan: Postural edu, REIL, core stab ex's, body mechanics, and HEP Subjective Subjective: Pt reports she has had LBP for 4 months. Pt reports she has been in severe pain, as the pain has progressively worsened over this time span. Pt reports she has had x-rays, pain injections, and director critical care recently which has not given her any relief. Pt reports her pain is severe in nature, and notes her pain radiates down her L LE all the way to her foot. Pt notes her L foot is numb today. Pt notes she continues to have sleep difficulty secondary to pain. 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 Pt reports she has to negotiate them one step at a time. No PMHx of LBP. Pt reports her LBP had an insidious onset in nature. Pain LBP: Pain Intensity (Out of 10): 0 Pain Intensity Range: 10 L LE pain: Pain Intensity (Out of 10): 10 Pain Intensity Range: 10 Objective Objective: Neuro: B LE sensation is WNL to light touch MMT: L hip flexion and knee flex= 4-/5. All other B LE MMT 5/5 throughout ROM: Pt is limited in all planes this date Repeated movements: Prone prop 1 min x 2 decreased pain, REIL 10x2 abolished L LE radiculopathy Balance/Special Test Scores Oswestry Low Back Score: 36 Goals Goal 1:: Decrease LBP x 50% to aid with sleep Goal Time Frame: 2-4 Weeks Goal 2:: Decrease the frequency and intensity of L LE radiculopathy x 50% to aid with ambulation Goal Time Frame: 2-4 Weeks Goal 3:: I with HEP Goal Time Frame: 2-4 Weeks Rehabilitation Potential Physical Therapy Diagnosis: Pt has LBP, L LE radiculopathy, and difficulty with ambulation secondary to L/S disc derrangement Rehabilitation Potential: Good Anticipated Interventions Patient/Client Instruction: Educate patient on: Condition and Plan of Care For the Purpose of:: To improve self management Therapeutic Exercise to Include: Strength training, Body mechanics, Postural training, Dynamic Lumbar Stabilization and Shyla Exercises For the Purpose of:: To decrease pain, To increase ROM and To improve muscle performance and motor function Text: Thank you for the opportunity to evaluate your patient. For Medicare and Medicare HMO plans, please review the plan of care and approve it. It will need to be FAXED BACK to us at [phone] for Medicare purposes. For Medicare only, by signing this I certify the plan of care. Please let me know if there are questions or concerns regarding this plan of care. Physician Signature: Date:
--- NOTE | 2024-06-16 08:55 | HP.PT.NRP ---
Patient Information Patient Information: CITLALI GOULD was seen in my office for initial evaluation on 04/09/24. The following Plan of Care was established for this patient: POC Established Initial Frequency: 2x /Week Initial Duration: 2 Weeks Anticipated Interventions Patient/Client Instruction: Educate patient on: Condition and Plan of Care For the Purpose of:: To improve self management Therapeutic Exercise to Include: Strength training, Body mechanics, Postural training, Dynamic Lumbar Stabilization and Shyla Exercises For the Purpose of:: To decrease pain, To increase ROM and To improve muscle performance and motor function Last Seen Last Seen: This patient was last seen in our office . Pertinent comments regarding their Physical therapy will appear below: Pt has not returned for greater than 30 days and is discontinued at this time. At this point I will be discontinuing this patient from physical therapy. I would be happy to see this patient again in the future if found appropriate by the physician. Thank you! Ambrose Calixto, PT, ATC Balance/Gait/Functional tests Balance/Special Test Scores Oswestry Low Back Score: 36
== END 2024-04-16 19:00 | disposition home or self-care (01) ==
LOC: PT 17:30
PROVIDERS: PCP Family Medicine; Referring Provider Anesthesiology; Visit Provider Anesthesiology
DX: M54.16 Radiculopathy, lumbar region (principal)
CPT/HCPCS: 97110; 97161

== ENCOUNTER → 2024-09-23 | Outpatient (CLI) | payer OTHER, SELFPAY ==
[2024-09-23 16:40] LABS: ALB/GLOB Ratio 1.6 RATIO (0.9-2.4); AST(SGOT) 23 U/L (<=31); Alanine Aminotransfer ALT/SGPT 24 U/L (<=34); Alkaline Phosphatase 72 U/L (35-104); Anion Gap 9 (5-15); BUN 13 mg/dL (4-19); BUN/Creat Ratio 14.3 RATIO (10-20); Calcium,Total 8.8 mg/dL (7.6-11.0); Carbon Dioxide 24.9 mmol/L (21.0-32.0); Chloride 106 mmol/L (98-108); Creatinine, Serum 0.89 mg/dL (0.70-1.20); EST Glomerular Filtration Rate 84 (>60); Globulin 2.6 g/dL (2.2-4.2); Glucose 94 mg/dL (70-99); Potassium 3.8 mmol/L (3.3-5.1); Protein, Total 6.6 g/dL (5.9-8.4); Sodium Level 140 mmol/L (133-145); Total Bilirubin 1.56 mg/dL (0.00-1.30)
[2024-09-23 17:30] LABS: Iron 48 ug/dL (50-170); Iron Binding Capacity,Total 361 ug/dL (250-450); Iron Binding Capacity,Unsat 313 ug/dL (228-428)
[2024-09-23 17:32] LABS: Vitamin B12 1160 pg/mL (180-914)
== END | disposition home or self-care (01) ==
LOC: LAB 14:19
PROVIDERS: PCP Family Medicine; Referring Provider Family Medicine; Visit Provider Family Medicine
DX: Z98.84 Bariatric surgery status (principal)
CPT/HCPCS: 80053; 82607; 82746; 83540; 83550; 84425

== ENCOUNTER 2024-09-30 05:27 | Day surgery (SDC) | payer OTHER, SELFPAY ==
[2024-09-23 14:59] LABS: Hematocrit 36.7 % (37-47); Hemoglobin 12.4 g/dL (12.0-15.0); Immature Granulocytes Count 0.010 X10^3/uL (0.0-0.0); Mean Corp Hgb Conc 33.8 g/dL (32-36); Mean Corpuscular Volume 87.8 fL (81-99); Mean Platelet Vol. 10.0 fl (6.2-12.0); NRBC Flagged by Analyzer 0 % (0-5); Platelet Count 240 K/mm3 (150-450); RBC Distribution Width CV 12.4 % (11.6-14.6); RBC Distribution Width SD 39.7 fl (35.1-43.9); Red Blood Count 4.18 M/mm3 (4.2-5.4); White Blood Count 5.8 K/mm3 (4.4-11.0)
[2024-09-23 16:21] LABS: Anion Gap 11 (5-15); BUN 13 mg/dL (4-19); BUN/Creat Ratio 14.0 RATIO (10-20); Calcium,Total 8.8 mg/dL (7.6-11.0); Carbon Dioxide 23.7 mmol/L (21.0-32.0); Chloride 106 mmol/L (98-108); Glucose 92 mg/dL (70-99); Potassium 3.8 mmol/L (3.3-5.1)
[2024-09-23 16:25] LABS: Magnesium 2.1 mg/dL (1.5-2.2)
[2024-09-23 17:38] LABS: HIV Nonreactive (Nonreactive); Hepatitis C Antibody Nonreactive (Nonreactive)
[2024-09-30] VITALS (13 sets, daily range): BP systolic 97–134; BP diastolic 70–86; PULSE 49–86; RESP 14–18; TEMP 36.4–36.8; O2SAT 97–100; BMI 34.0
--- OUTSIDE RECORDS SUMMARY | 2024-09-30 05:31 | XMS RPT_ITS | CCD ---
Author Organization [facility] Care Team Providers Care Hospice Art Therapist Name Role Phone KERRIE KOLB Unavailable Unavailable KERRIE KOLB Unavailable Unavailable Paul Kendrick MD Primary Care Provider Dr. Paul Kendrick Primary Care Provider Dr. Anselmo Maritn Attending Provider Dr. Lyle Mas Referring Provider Paul Kendrick MD Primary Care Provider Paul Kendrick MD Primary Care Provider Paul Kendrick MD Primary Care Provider Paul Kendrick MD Primary Care Provider Dr. Paul Kendrick MD Primary Care Provider [facility] GARCIA, Dr. Ang Attending Provider [facility] GARCIA, Dr. Ang Referring Provider Dr. Virginia Peter DO Attending Provider Dr. Virginia Peter DO Emergency Provider Dr. Shayne Blas MD Attending Provider Dr. Shayne Blas MD Referring Provider Dr. Barney Rajan MD Attending Provider Dr. Anselmo Martin MD Attending Provider Haagen CUSTOM FEED MILL OPERATOR HELPER.CERTIFIED CODING SPECIALIST, Adelia Unavailable Suppan CUSTOM FEED MILL OPERATOR HELPER.CERTIFIED CODING SPECIALIST, Marry A Unavailable Dr. Paul Kendrick MD Primary Care Provider Dr. Paul Kendrick MD Referring Provider Dr. Barney Rajan MD Attending Provider Dr. Paul Kendrick MD Attending Provider MARRY PAREDES Attending Unavailable PAUL KENDRICK Primary Care Unavailable AROLDO, PAUL Guillen Primary Care Unavailable AROLDO, PAUL Guillen Attending Unavailable MARRY PAREDES Attending Unavailable AROLDO, PAUL Guillen Primary Care Unavailable Aroldo, Paul Primary Care Unavailable Anselmo Martin Attending Unavailable Barney Rajan Attending Unavailable [place], Paul Primary Care Unavailable Aroldo, Paul Referring Unavailable Barney Rajan Attending Unavailable Aroldo, Paul Primary Care Unavailable PraShayne corley Referring Unavailable PraysShayne holland Attending Unavailable PraShayne corley Referring Unavailable [place], Paul Primary Care Unavailable Aroldo, Paul Primary Care Unavailable Virginia Peter Attending Unavailable Barney Rajan Referring Unavailable Aroldo, Paul Primary Care Unavailable Barney Rajan Attending Unavailable Aroldo, Paul Primary Care Unavailable Aroldo, Paul Attending Unavailable Aroldo, Paul Referring Unavailable [place], Paul Primary Care Unavailable Sav Montes Attending Unavailable Sav Montes Referring Unavailable PraShayne corley Attending Unavailable Shayne Blas Referring Unavailable Aroldo, Paul Primary Care Unavailable Allergies Allergy Classification Reported Allergen(s) Allergy Type Date of Onset Reaction(s) Facility (20 sources) Adhesive Tape; Translations: [ADHESIVE TAPE (ROSINS)] Propensity to adverse reactions (disorder) 4 [facility] Repository (20 sources) Aspirin; Translations: [ASPIRIN] Drug Allergy 4 Other [facility] Repository (20 sources) buPROPion; Translations: [BUPROPION HCL] Drug Allergy 7 Other: See Comments [facility] Repository (20 sources) Latex; Translations: [LATEX] Propensity to adverse reactions to drug (disorder) 8 [facility] Repository (20 sources) NSAIDs; Translations: [NSAIDS (NON-STEROIDAL ANTI-INFLAMMATO RY DRUG)] Propensity to adverse reactions to drug (disorder) 5 [facility] Repository (20 sources) venlafaxine; Translations: [VENLAFAXINE] Drug Allergy 8 Other: See Comments [facility] Repository (10 sources) Adhesive Tape; Translations: [adhesive tape] Allergy to substance 2 Other [facility] (9 sources) buPROPion Drug Allergy 2 Other [facility] (10 sources) NSAIDS (Non-Steroidal Anti-Inflamma; Translations: [NSAIDS (Non-Steroidal Anti-Inflamma] Allergy to substance 2 Other [facility] (1 source) buPROPion Drug Allergy 5 [facility] Repository Medications Current Medications Medication Drug Class(es) Dates Sig (Normalized) Sig (Original) cephalexin 250 mg oral capsule (20 sources) Cephalosporin Antibacterial Start: 04-30-2023 End: 11-30-2024 take 1 capsule by mouth once daily cephALEXin (KEFLEX) 250 mg capsule Indications: Recurrent UTI (urinary tract infection) Take 1 capsule by mouth once daily. 90 capsule 09/01/2024 11/30/2024 Active Start: 06-22-2021 take 500 mg by mouth every six hours Cephalexin Active 500 MG PO EVERY 6 HOURS June 22, 2021 12:05pm hasn't started yet Comment on above: TAKE ONE TABLET BY M OUTH AT BEDTIME FOR 90 DAYS, THEN AFTER intercourse cholecalciferol 0.025 mg oral capsule (20 sources) Vitamin D Start: 2022 End: 2024 take 1 capsule by mouth once daily Cholecalciferol, Vitamin D3, 25 mcg (1,000 unit) cap Take 1 capsule by mouth once daily. 30 capsule 11 10/19/2022 Active Comment on above: Take 1 capsule by mo uth once daily. ciprofloxacin 500 mg oral tablet (1 source) Quinolone Antimicrobial Start: 2020 take 1 tablet by mouth twice daily Ciprofloxacin Hcl (Cipro) 500 mg tablet Active 500 MG PO TWICE A DAY October 18, 2020 1:43pm clindamycin 20 mg/ml vaginal cream (2 sources) Lincosamide Antibacterial Start: 2024 End: 2024 clindamycin phosphate 2 % vaginal cream Indications: Recurrent UTI (urinary tract infection) Use 1 applicatorful vaginally daily at bedtime for 7 days. 40 g 09/01/2024 09/08/2024 Active dextroamphetamine sulfate 15 mg oral tablet (19 sources) Central Nervous System Stimulant Start: 2024 Dextroamphetamine Sulfate 15 mg tablet Active 15 mg PO 1600 September 22, 2024 12:00am Start: 05-05-2024 Dextroamphetam ine Sulfate 15 mg capsule, extended release Active mg PO May 05, 2024 1:00am Start: 12-24-2023 take 2 capsules by m outh twice daily dextroamphetamine SR (DEXEDRINE SPANSULE) 15 mg biphasic capsule TAKE 2 CAPSULES BY MOUTH 2 TIMES A DAY (MORNING AND AFTERNOON) 12/24/2023 Active famotidine 20 mg oral tablet (2 sources) Histamine-2 Receptor Antagonist Start: 10-29-2015 take 20 mg by mouth twice daily Famotidine Active 20 MG PO TWICE A DAY October 29, 2015 10:03pm ferrous gluconate 324 mg oral tablet (2 sources) Start: 09-28-2024 End: 09-28-2025 take 1 tablet by mouth once daily ferrous gluconate 324 mg (37.5 mg iron) tablet Indications: Low iron Take 1 tablet by mouth once daily. 30 tablet 11 09/28/2024 09/28/2025 Active fluconazole 150 mg oral tablet (4 sources) Azole Antifungal Start: 09-01-2024 End: 09-01-2024 take 1 tablet by mouth once fluconazole (DIFLUCAN) 150 mg tablet Indications: Recurrent UTI (urinary tract infection) Take 1 tablet by mouth one time only for 1 dose. 1 tablet 1 09/01/2024 09/01/2024 Active Start: 05-17-2023 End: 05-17-2023 take 1 tablet by mouth once fluconazole (DIFLUCAN) 150 mg tablet Take 1 tablet by mouth one time only for 1 dose. 1 tablet 0 05/17/2023 05/17/2023 Active Start: 07-31-2021 End: 07-31-2021 take 1 tablet by mouth once fluconazole (DIFLUCAN) 150 mg tablet Take 1 tablet by mouth one time only for 1 dose. 1 tablet 0 07/31/2021 07/31/2021 Active Comment on above: Take 1 tablet by vira one time only for 1 dose. gabapentin 300 mg oral capsule (20 sources) Anti-epileptic Agent Start: 05-07-2023 End: 02-28-2025 take 3 capsules by mouth once daily at bedtime gabapentin (NEURONTIN) 300 mg capsule Indications: RLS (restless legs syndrome) Take 3 capsules by mouth daily at bedtime for 180 days. 270 capsule 1 09/01/2024 02/28/2025 Active Start: 12-17-2022 End: 03-17-2023 take 3 capsules by mouth once daily at bedtime gabapentin (NEURONTIN) 300 mg capsule Indications: RLS (restless legs syndrome) Take 3 capsules by mouth daily at bedtime for 90 days. 90 capsule 5 12/17/2022 03/17/2023 Active Start: 08-16-2016 End: 12-13-2022 take 3 capsules by mouth once daily at bedtime gabapentin (NEURONTIN) 300 mg capsule Indications: RLS (restless legs syndrome) Take 3 capsules by mouth daily at bedtime for 90 days. 90 capsule 2 09/14/2022 12/13/2022 Active Start: 08-16-2016 take 900 mg by mouth at bedtim e Gabapentin Active 900 MG PO AT BEDTIME August 16, 2016 12:00am Comment on above: Take 3 capsules by m outh daily at bedtime for 90 days. Take 3 capsules by m outh daily at bedtime for 180 days. lactobacillus acidophilus [id number] unt / pectin 100 mg oral tablet (20 sources) Start: 2023 take 1 tablet by mouth once Acidophilus-Pectin, [place]Daisy 25 million cell -100 mg tab Take 1 tablet by mouth every afternoon. 05/08/2023 Active Comment on above: Take 1 tablet by vira th every afternoon. lansoprazole 30 mg delayed release oral capsule (20 sources) Proton Pump Inhibitor Start: 2023 End: 2024 take 1 capsule by mouth once daily before breakfast lansoprazole (PREVACID) 30 mg capsule Indications: GERD without esophagitis Take 1 capsule by mouth daily before breakfast. 1/2 hr before meal. 90 capsule 3 01/13/2024 01/12/2025 Active Comment on above: Take 1 capsule by mo uth daily before breakfast. 1/2 hr before meal. levonorgestrel 0.529366 mg/hr intrauterine system (20 sources) Progestin, Progestin-containing Intrauterine Device Start: 2021 End: 2026 levonorgestrel (MIRENA) 20 mcg/24 hours (7 yrs) 52 mg IUD Indications: Encounter for IUD insertion 1 Each by INTRAUTERINE route as directed. 1 Each 06/07/2021 06/06/2026 Active Comment on above: 1 Each by INTRAUTERI NE route as directed. lidocaine hydrochloride 0.02 mg/mg topical gel (20 sources) Antiarrhythmic, Amide Local Anesthetic Start: 2023 take 5 mL transmucosal route every eight hours as needed lidocaine urojet (GLYDO) 2 % jelp Apply 5 mL to affected area three times a day as needed. 20 mL 1 05/17/2023 Active Comment on above: Apply 5 mL to affect ed area three times a day as needed. metroNIDAZOLE 0.0075 mg/mg vaginal gel (8 sources) Nitroimidazole Antimicrobial Start: 2022 End: 2022 metroNIDAZOLE (METROGEL VAGINAL) 0.75 % (37.5mg/5 gram) Vaginal Gel Use 1 Applicator vaginally twice daily for 5 days. 70 g 0 06/07/2022 06/12/2022 Active Start: 06-07-2022 End: 06-07-2022 take 1 tablet by mouth twice daily metroNIDAZOLE (FLAGYL) 500 mg tablet Take 1 tablet by mouth twice daily for 7 days. 14 tablet 0 06/07/2022 06/07/2022 Discontinued (Allergic response) Start: 02-12-2022 End: 02-19-2022 take 1 tablet by mouth twice daily metroNIDAZOLE (FLAGYL) 500 mg tablet Indications: BV (bacterial vaginosis) Take 1 tablet by mouth twice daily for 7 days. 14 tablet 0 02/12/2022 02/19/2022 Active Start: 03-01-2021 End: 07-13-2021 metroNIDAZOLE (METROGEL VAGI NAL) 0.75 % Vaginal Gel Use 1 Applicator vaginally twice daily. 70 g 0 03/01/2021 07/13/2021 Discontinued Comment on above: Use 1 Applicator vag inally twice daily. Take 1 tablet by vira twice daily for 7 days. Use 1 Applicator vag inally twice daily for 5 days. nitrofurantoin, macrocrystals 25 mg / nitrofurantoin, monohydrate 75 mg oral capsule (1 source) Nitrofuran Antibacterial Start: End: take 1 capsule by mouth twice daily at mealtime nitrofurantoin monohydrate and macrocrystal (MACROBID) 100 mg capsule Indications: Recurrent UTI (urinary tract infection) Take 1 capsule by mouth two times a day with meals for 7 days. 14 capsule 09/01/2024 09/08/2024 Active omeprazole 20 mg delayed release oral capsule (20 sources) Proton Pump Inhibitor Start: 024 take 1 capsule by mouth once daily Omeprazole 20 mg capsule,delayed release(DR/EC) Active 20 mg PO DAILY 14 March 03, 2024 1:00am Start: 10-03-2021 End: 04-05-2022 take 1 capsule by mouth once daily before breakfast omeprazole (PRILOSEC) 20 mg capsule Indications: GERD without esophagitis Take 1 capsule by mouth daily before breakfast. 1/2 hr before meal. 30 capsule 1 10/03/2021 04/05/2022 Discontinued Comment on above: Take 1 capsule by mo [facility] daily before breakfast. 1/2 hr before meal. traZODone hydrochloride 100 mg oral tablet (20 sources) Serotonin Reuptake Inhibitor Start: End: take 1 tablet by mouth once daily at bedtime traZODone (DESYREL) 100 mg tablet Indications: Seizure disorder (HCC) Take 1 tablet by mouth daily at bedtime. 90 tablet 1 08/27/2024 02/23/2025 Active Start: 05-19-2023 End: 07-11-2024 take 1 tablet by mouth once daily at bedtime traZODone (DESYREL) 100 mg tablet Indications: Seizure disorder (HCC) Take 1 tablet by mouth daily at bedtime. 90 tablet 1 01/13/2024 07/11/2024 Active Start: 06-11-2022 End: 05-16-2023 take 1 tablet by mouth once daily at bedtime traZODone (DESYREL) 100 mg tablet Take 1 tablet by mouth daily at bedtime. 30 tablet 5 05/07/2023 05/16/2023 Discontinued Start: 09-30-2022 take 1 tablet by vira th once daily at bedtime traZODone (DESYREL) 100 mg tablet Take 1 tablet by mouth daily at bedtime. 30 tablet 5 2021 Active Start: 10-10-2021 End: 04-08-2022 take 1.5 tablets by mouth once daily at bedtime traZODone (DESYREL) 50 mg tablet Indications: Chronic insomnia Take 1.5 tablets by mouth daily at bedtime. 135 tablet 1 10/10/2021 2021 Discontinued Start: 06-22-2021 take 2 tablets by mo uth at bedtime Trazodone 50 mg tablet Active 100 mg PO AT BEDTIME June 22, 2021 12:00am Start: 06-05-2021 End: 11-27-2021 take 1 tablet by mouth at bedtime Trazodone 50 mg tablet Active 50 mg PO AT BEDTIME June 22, 2021 12:00am Start: 06-02-2020 End: 09-01-2020 take 1 tablet by mouth once daily at bedtime traZODone (DESYREL) 50 mg tablet Indications: Chronic insomnia Take 1 tablet by mouth daily at bedtime. 30 tablet 2 06/02/2020 09/01/2020 Discontinued Comment on above: Take 1 tablet by vira th daily at bedtime. Take 1.5 tablets by mouth daily at bedtime. tretinoin 0.001 mg/mg topical gel (20 sources) Retinoid Start: 10-03-2022 End: 04-01-2023 tretinoin Microsphere (RETIN-A MICRO) 0.1 % gel Indications: Acne comedone Apply to affected area daily at bedtime. 30 g 2 10/03/2022 04/01/2023 Active Start: 10-03-2021 End: 04-01-2022 tretinoin Microsphere (RETIN -A MICRO) 0.1 % gel Indications: Acne comedone Apply to affected area daily at bedtime. 30 g 2 10/03/2021 04/01/2022 Active Comment on above: Apply to affected ar ea daily at bedtime. valACYclovir 500 mg oral tablet (20 sources) Herpesvirus Nucleoside Analog DNA Polymerase Inhibitor, Herpes Simplex Virus Nucleoside Analog DNA Polymerase Inhibitor, Herpes Zoster Virus Nucleoside Analog DNA Polymerase Inhibitor Start: take 1 tablet by mouth once daily valACYclovir (VALTREX) 500 mg tablet Take one tablet by mouth once a day. 90 tablet 2 05/29/2023 Active Comment on above: Take one tablet by m outh once a day. Vitamin B Complex (4 sources) Start: Vitamin B Complex Active 1 EACH EVERY MONTH September 06, 2021 11:00pm Start: 09-07-2021 Vitamin B Comp genevieve Active 1 EACH EVERY MONTH September 07, 2021 12:00am vitamin b12 1 mg/ml injectable solution (20 sources) Vitamin B12 Start: 05-05-2024 Cyanocobalamin (Vitamin B-12) 1,000 mcg/mL solution Active 1000 ug IM every 4 weeks May 05, 2024 1:00am Start: 05-19-2023 End: 09-01-2024 inject 1 mL by intramuscular injection every month cyanocobalamin 1,000 mcg/mL Inject 1 mL intramuscularly once every month. 1 mL 11/26/2023 Active Start: 11-12-2022 End: 05-16-2023 inject 1 mL by intramuscular injection every month cyanocobalamin 1,000 mcg/mL Indications: Other vitamin B12 deficiency anemia Inject 1 mL intramuscularly once every month. 1 mL 12 11/12/2022 05/16/2023 Discontinued Start: 10-03-2022 inject 1 mL by intra muscular injection every month cyanocobalamin 1,000 mcg/mL Indications: Other vitamin B12 deficiency anemia Inject 1 mL intramuscularly once every month. 1 mL 12 10/03/2022 Active Start: 12-08-2021 End: 12-02-2022 cyanocobalamin 1,000 mcg inj ection Start: 12-07-2020 End: 12-01-2021 cyanocobalamin 1,000 mcg inj ection Comment on above: Inject 1 mL intramus cularly once every month. Completed/Discontinued Medications Medication Drug Class(es) Dates Sig (Normalized) Sig (Original) acetaminophen 325 mg / oxyCODONE hydrochloride 5 mg oral tablet (12 sources) Opioid Agonist Start: 03-03-2024 End: 05-05-2024 Oxycodone-Acetamino phen (Percocet) 5-325 mg tablet Discontinued 1 {tbl} PO EVERY 6 HOURS as needed for pain 12 3 0 March 03, 2024 May 05, 2024 9:44am Acute left-sided back pain with sciatica Lumbago with sciatica, left side Start: 09-14-2021 End: 05-05-2024 Oxycodone-Acetaminophen 5-32 5 mg tablet Discontinued 2 {tbl} PO EVERY 8 HOURS NEEDED as needed for Pain 20 7 0 September 14, 2021 May 05, 2024 9:43am Calculus of right kidney Calculus of kidney Start: 09-14-2021 take 2 tablets by mo uth every eight hours as needed Oxycodone-Acetaminophen Active 2 TABLET PO EVERY 8 HOURS NEEDED 20 7 September 14, 2021 Start: 06-22-2021 take 1 tablet by vira th every six hours Oxycodone-Acetaminophen (Percocet) 5-325 mg tablet Active 1 TABLET PO EVERY 6 HOURS 10 3 June 22, 2021 12:06pm cetirizine hydrochloride 10 mg oral tablet (1 source) Histamine-1 Receptor Antagonist End: 01-25-2021 take 1 tablet by mouth once daily cetirizine (ZYRTEC) 10 mg tablet Take 10 mg by mouth once daily. 01/25/2021 Discontinued (Course of therapy completed) CPAP (12 sources) Start: 04-28-2020 End: 07-31-2021 CPAP Indications: FLOR (obstructive sleep apnea) 30 day download, send 30 day detailed download. mask (pt pref), nasal pillows may be too big, try nasal, filters, heated humidity & tubing. Lifetime supplies. FLOR G47.33npi [id number] 1 Device 04/28/2020 07/31/2021 Discontinued (Course of therapy completed) Start: 04-28-2020 End: 07-31-2021 CPAP Indications: FLOR (obstr uctive sleep apnea) 30 day download, send 30 day detailed download. mask (pt pref), nasal pillows may be too big, try nasal, filters, heated humidity & tubing. Lifetime supplies. FLOR G47.33npi [id number] 1 Device 0 04/28/2020 07/31/2021 Discontinued (Course of therapy completed) Start: 04-28-2020 CPAP Indicatio ns: FLOR (obstructive sleep apnea) 30 day download, send 30 day detailed download. mask (pt pref), nasal pillows may be too big, try nasal, filters, heated humidity & tubing. Lifetime supplies. FLOR G47.33npi [id number] 1 Device 0 04/28/2020 Active Start: 10-28-2019 End: 07-13-2021 CPAP Indications: FLOR (obstr uctive sleep apnea) Initiate Auto PAP @ 5-20 cm of water with humidification. Mask (per patient preference) optional chin strap (if indicated) , filters, tubing, humidifier and lifetime supplies. 1 Device 10/28/2019 07/13/2021 Discontinued Start: 10-28-2019 End: 07-13-2021 CPAP Indications: FLOR (obstr uctive sleep apnea) Initiate Auto PAP @ 5-20 cm of water with humidification. Mask (per patient preference) optional chin strap (if indicated) , filters, tubing, humidifier and lifetime supplies. 1 Device 0 10/28/2019 07/13/2021 Discontinued Start: 10-28-2019 CPAP Indicatio ns: FLOR (obstructive sleep apnea) Initiate Auto PAP @ 5-20 cm of water with humidification. Mask (per patient preference) optional chin strap (if indicated) , filters, tubing, humidifier and lifetime supplies. 1 Device 0 10/28/2019 Active Comment on above: Initiate Auto PAP @ 5-20 cm of water with humidification. Mask (per patient preference) optional chin strap (if indicated) , filters, tubing, humidifier and lifetime supplies. 30 day download, sen d 30 day detailed download. mask (pt pref), nasal pillows may be too big, try nasal, filters, heated humidity & tubing. Lifetime supplies. FLOR G47.33npi [id number] doxycycline hyclate 100 mg oral capsule (20 sources) Tetracycline-class Drug Start: 05-27-19 End: 09-15-19 take 1 capsule by mouth twice daily doxycycline hyclate (VIBRAMYCIN) 100 mg capsule Take 1 capsule by mouth two times a day. 6 capsule 05/27/2023 09/14/2024 Discontinued Start: 05-21-2023 End: 05-28-2023 take 1 tablet by mouth twice daily doxycycline (VIBRA-TABS) 100 mg tablet Take 1 tablet by mouth two times a day for 7 days. 14 tablet 0 05/21/2023 05/28/2023 Comment on above: Take 1 tablet by vira th two times a day for 7 days. Take 1 capsule by mo [facility] two times a day. ergocalciferol 1.25 mg oral capsule (20 sources) Provitamin D2 Compound Start: 09-07-2021 End: 05-05-2024 Ergocalciferol (Vitamin D2) (Vitamin D2) 1,250 mcg (50,000 unit) capsule Discontinued 30971 ug PO EVERY WEEK September 07, 2021 12:00am May 05, 2024 9:43am Start: 07-14-2021 End: 04-04-2022 take 1 capsule by mouth two times weekly ergocalciferol 50,000 unit capsule (VITAMIN D2, DRISDOL) Indications: Vitamin D deficiency , History of Angelika-en-Y gastric bypass Take 1 capsule by mouth two times a week. 24 capsule 3 07/14/2021 04/04/2022 Discontinued Start: 01-22-2019 End: 01-25-2021 take 1 capsule by mouth every week ergocalciferol 50,000 unit capsule (VITAMIN D2, DRISDOL) Indications: Vitamin D deficiency Take 1 capsule by mouth one time a week. 4 capsule 5 01/22/2019 01/25/2021 Discontinued (Course of therapy completed) Comment on above: Take 1 capsule by [facility] two times a week. 21 day ethinyl estradiol 0.349764 mg/hr / etonogestrel 0.005 mg/hr vaginal system (2 sources) Progestin, Estrogen Start: 02-03-2020 End: 10-24-2020 ELURYNG 0.12-0.015 mg/24 hr vaginal ring INSERT 1 RING VAGINALLY DIRECTED. REMOVE AFTER 3 WEEKS & WAIT 7 DAYS BEFORE INSERTING A NEW RING 3 Each 3 02/03/2020 10/24/2020 Discontinued Start: 08-16-2016 Etonogestrel-E thinyl Estradiol Active 1 UNIT VAGINAL DIRECTED August 16, 2016 3:37pm ferrous sulfate 325 mg oral tablet (2 sources) Start: 09-28-2024 End: 09-28-2024 take 1 tablet by mouth twice daily ferrous sulfate (IRON) 325 mg (65 mg iron) tablet Indications: Low iron Take 1 tablet by mouth two times a day. 60 tablet 5 09/28/2024 09/28/2024 Discontinued fluticasone propionate 0.05 mg/actuat metered dose nasal spray (1 source) Corticosteroid End: 01-25-2021 take 1 spray(s) nasal route once daily fluticasone (FLONASE ALLERGY RELIEF) 50 mcg/actuation nasal spray Use 1 [place] in each nostril once daily. 01/25/2021 Discontinued (Course of therapy completed) folic acid 1 mg oral tablet (20 sources) Start: 04-11-2021 End: 05-05-2024 take 1 tablet by mouth once daily Folic Acid 1 mg tablet Discontinued 1 mg PO DAILY September 07, 2021 12:00am May 05, 2024 9:43am Comment on above: Take 1 tablet by vira th once daily. lisdexamfetamine dimesylate 20 mg oral capsule (20 sources) Central Nervous System Stimulant Start: 10-18-2020 End: 05-05-2024 take 1 capsule by mouth once daily Lisdexamfetamine (Vyvanse) 20 mg Capsule Discontinued 60 mg PO DAILY October 18, 2020 12:00am May 05, 2024 9:43am Start: 01-17-2018 End: 05-17-2023 VYVANSE 60 mg capsule 1 caps ule once daily. 01/17/2018 05/17/2023 Discontinued (Course of therapy completed) Comment on above: 1 capsule once daily . bx rating 24 hr methylphenidate hydrochloride 54 mg extended release oral tablet (12 sources) Central Nervous System Stimulant Start: End: take 1 tablet by mouth once daily methylphenidate ER (CONCERTA) 54 mg biphasic tablet Take 1 tablet by mouth once daily for 30 days. 0 05/19/2023 01/13/2024 Discontinued (Discontinued by another Health Care Provider) Comment on above: Take 1 tablet by vira th once daily for 30 days. 24 hr nicotine 0.875 mg/hr transdermal system (1 source) Cholinergic Nicotinic Agonist Start: End: apply 1 dose transdermal route every twenty-four hours nicotine (NICODERM) 21 mg/24 hr Indications: Tobacco use Apply 1 Patch as directed every 24 hours. 30 Patch 08/05/2019 01/25/2021 Discontinued (Course of therapy completed) ondansetron 4 mg disintegrating oral tablet (19 sources) Serotonin-3 Receptor Antagonist Start: 022 End: 025 take 1 tablet by mouth every eight hours as needed for nausea Ondansetron Hcl 8 mg tablet Discontinued 8 mg PO EVERY 8 HOURS NEEDED as needed for Nausea 20 7 0 September 14, 2021 12:00am May 05, 2024 9:43am Start: 06-22-2021 End: 05-05-2024 take 1 tablet by mouth every eight hours as needed for nausea Ondansetron 4 mg tablet,disintegrating Discontinued 4 mg PO EVERY 8 HOURS NEEDED as needed for Nausea 20 0 March 03, 2024 1:00am May 05, 2024 9:43am pantoprazole 40 mg delayed release oral tablet (20 sources) Proton Pump Inhibitor Start: 05-19-2023 End: 05-18-2024 take 1 tablet by mouth once daily before breakfast pantoprazole DR (PROTONIX) 40 mg tablet Take 1 tablet by mouth daily before breakfast. Take on empty stomach, 1/2 hr before meal. 30 tablet 11 05/19/2023 01/13/2024 Discontinued (Discontinued by Patient) Start: 04-05-2022 End: 05-16-2023 take 1 tablet by mouth once daily before breakfast pantoprazole DR (PROTONIX) 40 mg tablet Take 1 tablet by mouth daily before breakfast. Take on empty stomach, 1/2 hr before meal. 30 tablet 11 04/05/2022 05/16/2023 Discontinued Comment on above: Take 1 tablet by vira th daily before breakfast. Take on empty stomach, 1/2 hr before meal. predniSONE 20 mg oral tablet (3 sources) Start: 4 End: 5 take 2 tablets by mouth once daily Prednisone 20 mg tablet Discontinued 40 mg PO DAILY 10 March 03, 2024 1:00am May 05, 2024 9:44am tamsulosin hydrochloride 0.4 mg oral capsule (9 sources) alpha-Adrenergic Roman Start: 2 End: 2 take 1 capsule by mouth once daily Tamsulosin (Flomax) 0.4 mg capsule Discontinued 0.4 mg PO DAILY 4 June 22, 2021 12:00am June 23, 2021 12:34pm Vitamin B Complex Injectable (3 sources) Start: 2 End: 5 Vitamin B Complex Injectable Discontinued 1 NMA EVERY MONTH September 07, 2021 12:00am May 05, 2024 9:44am Problems Active Problems Problem Classification Problem Date Documented Da te Episodic/Chronic Abdominal pain (1 source) Vaginal pain; Translations: [Pelvic and perineal pain] 05-17-2023 Episodic Complication of device; implant or graft (1 source) IUD threads lost; Translations: [Displacement of intrauterine contraceptive device, initial encounter] Episodic Contraceptive and procreative management (1 source) Intrauterine contraceptive device in situ; Translations: [Presence of (intrauterine) contraceptive device] Episodic Deficiency and other anemia (2 sources) Deficiency anemias; Translations: [Other specified nutritional anemias] Episodic Epilepsy; convulsions (3 sources) Seizure disorder; Translations: [Epilepsy, unspecified, not intractable, without status epilepticus] Onset: 4 01-13-2024 Chronic Esophageal disorders (20 sources) Gastroesophageal reflux disease without esophagitis; Translations: [Gastro-esophageal reflux disease without esophagitis] Onset: 2 Chronic Immunizations and screening for infectious disease (2 sources) Patient encounter status; Translations: [Encounter for screening for infections with a predominantly sexual mode of transmission] Episodic Inflammatory diseases of female pelvic organs (1 source) Bacterial vaginosis; Translations: [Acute vaginitis] Episodic Miscellaneous mental health disorders (3 sources) Chronic insomnia; Translations: [Psychophysiologic insomnia] Chronic Noninfectious gastroenteritis (1 source) Gastroenteritis; Translations: [Noninfective gastroenteritis and colitis, unspecified] Episodic Nutritional deficiencies (20 sources) Vitamin D deficiency; Translations: [Vitamin D deficiency, unspecified] Onset: 2 07-12-2021 Chronic Other connective tissue disease (1 source) Tendinitis of hand; Translations: [Other enthesopathies, not elsewhere classified] 06-11-2020 Episodic Other diseases of kidney and ureters (9 sources) Hydronephrosis; Translations: [Unspecified hydronephrosis] 06-30-2021 Episodic Other diseases of kidney and ureters (1 source) Unspecified hydronephrosis; Translations: [Hydronephrosis] Episodic Other female genital disorders (5 sources) Vaginal discharge; Translations: [Other specified noninflammatory disorders of vagina] Episodic Other female genital disorders (1 source) Pruritus of vagina; Translations: [Other specified noninflammatory disorders of vagina] Episodic Other female genital disorders (1 source) Vaginal odor; Translations: [Other specified noninflammatory disorders of vagina] Episodic Other gastrointestinal disorders (2 sources) Bariatric surgery status; Translations: [History of Angelika-en-Y gastric bypass] Onset: 0 Episodic Other hereditary and degenerative nervous system conditions (20 sources) Restless legs; Translations: [Restless legs syndrome] Onset: 7 Chronic Other hereditary and degenerative nervous system conditions (1 source) Restless legs syndrome; Translations: [RLS (restless legs syndrome)] Onset: 7 Chronic Other nervous system disorders (20 sources) Carpal tunnel syndrome; Translations: [Carpal tunnel syndrome, bilateral upper limbs] Onset: 3 04-04-2022 Chronic Other nervous system disorders (1 source) Carpal tunnel syndrome, unspecified upper limb; Translations: [Carpal tunnel syndrome, unspecified laterality] Onset: 3 Chronic Other nervous system disorders (1 source) Other acute postprocedural pain; Translations: [Other acute postprocedural pain] Onset: 9 Episodic Other nutritional; endocrine; and metabolic disorders (20 sources) Hyperbilirubinemia; Translations: [Other disorders of bilirubin metabolism] Onset: 3 Chronic Other nutritional; endocrine; and metabolic disorders (1 source) Other disorders of bilirubin metabolism; Translations: [Hyperbilirubinemia] Onset: 3 Chronic Other screening for suspected conditions (not mental disorders or infectious disease) (4 sources) Raised TSH level; Translations: [Other specified abnormal findings of blood chemistry] Onset: 5 Episodic Other skin disorders (2 sources) Comedonal acne; Translations: [Acne vulgaris] Episodic Other skin disorders (1 source) Loss of hair; Translations: [Nonscarring hair loss, unspecified] Episodic Poisoning by other medications and drugs (1 source) Poisoning by vitamin D; Translations: [Poisoning by vitamins, undetermined, sequela] Episodic Residual codes; unclassified (20 sources) Obstructive sleep apnea syndrome; Translations: [Obstructive sleep apnea (adult) (pediatric)] Onset: 0 10-28-2019 Chronic Residual codes; unclassified (1 source) Obstructive sleep apnea (adult) (pediatric); Translations: [FLOR (obstructive sleep apnea)] Onset: 3 Chronic Spondylosis; intervertebral disc disorders; other back problems (4 sources) Prolapsed lumbar intervertebral disc; Translations: [Other intervertebral disc displacement, lumbar region] 05-05-2024 Chronic Substance-related disorders (20 sources) History of clinical finding in subject; Translations: [History of marijuana use] Onset: 6 Resolved: 7 03-27-2021 Chronic Unclassified (1 source) Low back pain, unspecified; Translations: [Low back pain, unspecified] Onset: 5 Urinary tract infections (13 sources) Urinary tract infectious disease; Translations: [Urinary tract infection, site not specified] Onset: 5 06-22-2021 Episodic Past or Other Problems Problem Classification Problem Date Documented Da te Episodic/Chronic Adjustment disorders (20 sources) Adjustment disorder; Translations: [Adjustment disorder, unspecified] Onset: 7 Resolved: 7 10-10-2023 Chronic Calculus of urinary tract (20 sources) Kidney stone; Translations: [Calculus of kidney] Onset: 5 Resolved: 6 Episodic Cancer of cervix (20 sources) Atypical squamous cells of undetermined significance on cervical Papanicolaou smear; Translations: [Atypical squamous cells of undetermined significance on cytologic smear of cervix (ASC-US)] Onset: 4 05-29-2023 Episodic Deficiency and other anemia (20 sources) Nutritional anemia; Translations: [Vitamin B12 deficiency anemia, unspecified] Onset: 7 08-29-2016 Episodic Deficiency and other anemia (20 sources) Anemia; Translations: [Anemia, unspecified] Onset: 8 08-07-2017 Episodic Deficiency and other anemia (1 source) Other specified nutritional anemias; Translations: [Other specified nutritional anemias] Onset: 8 Episodic Deficiency and other anemia (1 source) Other vitamin B12 deficiency anemias; Translations: [Other vitamin B12 deficiency anemia] Onset: 7 Episodic Disorders usually diagnosed in infancy, childhood, or adolescence (20 sources) Attention deficit hyperactivity disorder, predominantly inattentive type; Translations: [Other specified behavioral and emotional disorders with onset usually occurring in childhood and adolescence] Onset: 8 Resolved: 7 10-10-2023 Chronic Epilepsy; convulsions (20 sources) Seizure; Translations: [Unspecified convulsions] Onset: 0 03-09-2020 Episodic Genitourinary symptoms and ill-defined conditions (20 sources) History of recurrent urinary tract infection; Translations: [Personal history of urinary (tract) infections] Onset: 6 Resolved: 7 03-27-2021 Episodic Hemorrhoids (20 sources) Thrombosed external hemorrhoids; Translations: [Perianal venous thrombosis] Onset: 4 Resolved: 6 09-13-2015 Episodic Nutritional deficiencies (20 sources) Folic acid deficiency (non anemic); Translations: [Deficiency of other specified B group vitamins] Onset: 7 Resolved: 0 Episodic Other complications of (20 sources) Urinary tract infection in ; Translations: [Unspecified infection of urinary tract in , unspecified trimester] Onset: 5 Resolved: 7 03-27-2021 Episodic Other complications of (20 sources) Maternal tobacco use in ; Translations: [Smoking (tobacco) complicating , unspecified trimester] Onset: 6 Resolved: 7 03-27-2021 Episodic Other complications of (20 sources) History of delivery of macrosomal infant; Translations: [Supervision of with other poor reproductive or obstetric history, unspecified trimester] Onset: 6 Resolved: 7 03-27-2021 Episodic Other complications of (20 sources) Trichomonal vaginitis in ; Translations: [Infection of other part of genital tract in , second trimester] Onset: 6 Resolved: 7 08-29-2016 Episodic Other gastrointestinal disorders (20 sources) H/O: GIT by-pass; Translations: [Bariatric surgery status] Onset: 0 03-09-2020 Episodic Other gastrointestinal disorders (20 sources) History of bypass of stomach; Translations: [Bariatric surgery status] Onset: 6 Resolved: 0 Episodic Other infections; including parasitic (20 sources) History of sexually transmitted disease; Translations: [Personal history of other infectious and parasitic diseases] Onset: 6 03-27-2021 Episodic Other inflammatory condition of skin (20 sources) Seborrheic dermatitis; Translations: [Seborrheic dermatitis, unspecified] Onset: 8 Resolved: 7 08-29-2016 Episodic Other nutritional; endocrine; and metabolic disorders (20 sources) Morbid obesity; Translations: [Morbid (severe) obesity due to excess calories] Onset: 0 Resolved: 6 09-13-2015 Chronic Residual codes; unclassified (20 sources) Tobacco use and exposure - finding; Translations: [Tobacco use] Onset: 8 03-09-2020 Episodic Residual codes; unclassified (19 sources) History of clinical finding in subject; Translations: [Personal history of other specified conditions] Onset: 6 03-27-2021 Episodic Residual codes; unclassified (20 sources) Insomnia; Translations: [Insomnia, unspecified] Onset: 0 Resolved: 6 09-13-2015 Episodic Screening and history of mental health and substance abuse codes (20 sources) H/O: depression; Translations: [Personal history of other mental and behavioral disorders] Onset: 6 03-27-2021 Episodic Sexually transmitted infections (not HIV or hepatitis) (20 sources) Human papillomavirus deoxyribonucleic acid test positive, high risk on cervical specimen; Translations: [Cervical high risk human papillomavirus (HPV) DNA test positive] Onset: 9 08-06-2018 Episodic Spondylosis; intervertebral disc disorders; other back problems (10 sources) Lumbar radiculopathy; Translations: [Radiculopathy, lumbar region] Onset: 5 03-03-2024 Episodic Unclassified (5 sources) history of gastric byoass 10-19-2021 Comment on above: 2011 Unclassified (1 source) Patient encounter status 09-14-2024 Results Test Name Value Interpretation Reference Range Facility [facility] 09-29-2024 [facility] Telephone ([facility]) -- CITLALI BECKWITH ([id number]) 1985 F Date Time Provider Department 09/29/24 PAUL KENDRICK [facility] During your visit today, we recorded the following information about you: Liliana Smith RN 09/29/2024 9:13 AM Signed Shanna with [facility] called in and was asking about the ferrous gluconate and ferrous sulfate that were called in yesterday. I told her the ferrous sulfate had been canceled. She verbalized understanding. Liliana Smith RN Allergies As of Date: 09/29/2024 Noted Allergy Reaction ADHESIVE TAPE (ROSINS) 08/14/2013 2 - Rash ASPIRIN 08/14/2013 Comments: Unable to take aspirin after having gastric bypass surgery EFFEXOR (VENLAFAXINE) 05/01/2017 14 - Other: See Comments Comments: Dry heaves, shaking uncotrollable LATEX 07/09/2007 2 - Rash NSAIDS (NON-STEROIDAL ANTI-INFLAM*07/05/2014 Comments: due to gastric bypass WELLBUTRIN (BUPROPION HCL) 11/28/2006 14 - Other: See Comments Comments: Seizure-was on overdose. Has taken it since then and done fine. Date Reviewed: 09/14/2024 Reviewed by: Isabel Rodriges LPN - Fully Assessed Prescriptions as of 09/29/2024 - ferrous gluconate 324 mg (37.5 mg iron) tablet Take 1 tablet by mouth once daily. - cephALEXin (KEFLEX) 250 mg capsule Take 1 capsule by mouth once daily. - gabapentin (NEURONTIN) 300 mg capsule Take 3 capsules by mouth daily at bedtime for 180 days. - traZODone (DESYREL) 100 mg tablet Take 1 tablet by mouth daily at bedtime. - dextroamphetamine SR (DEXEDRINE SPANSULE) 15 mg biphasic capsule TAKE 2 CAPSULES BY MOUTH 2 TIMES A DAY (MORNING AND AFTERNOON) - lansoprazole (PREVACID) 30 mg capsule Take 1 capsule by mouth daily before breakfast. 1/2 hr before meal. - cyanocobalamin 1,000 mcg/mL Inject 1 mL intramuscularly once every month. - valACYclovir (VALTREX) 500 mg tablet Take one tablet by mouth once a day. - lidocaine urojet (GLYDO) 2 % jelp Apply 5 mL to affected area three times a day as needed. - Acidophilus-Pectin, Soddy-Daisy 25 million cell -100 mg tab Take 1 tablet by mouth every afternoon. - Cholecalciferol, Vitamin D3, 25 mcg (1,000 unit) cap Take 1 capsule by mouth once daily. - levonorgestrel (MIRENA) 20 mcg/24 hours (7 yrs) 52 mg IUD 1 Each by INTRAUTERINE route as directed. Problem List As Of Date 09/29/2024 Noted Resolved ADJUSTMENT REACTION NOS [F43.20] 12/19/2006 07/14/2007 Seborrheic dermatitis, unspecified [L21.9] 06/12/2007 08/29/2016 Attention deficit disorder [F98.8] 07/14/2007 08/29/2016 Adjustment disorder with depressed mood [F43.21]07/14/2007 08/29/2016 Tobacco use [Z72.0] 08/26/2007 Routine general medical examination at [facility]*06/30/2009 09/13/2015 Class: Chronic Routine gynecological examination [Z01.419] 06/30/2009 09/13/2015 Class: Chronic Morbid obesity (HCC) [E66.01] 06/30/2009 09/13/2015 Insomnia [G47.00] 06/30/2009 09/13/2015 Thrombosed external hemorrhoid [K64.5] 08/14/2013 09/13/2015 Recurrent UTI (urinary tract infection) complic*07/22/2014 08/29/2016 Kidney stones [N20.0] 07/22/2014 09/13/2015 Marijuana abuse [F12.10] 04/27/2015 08/29/2016 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] 09/08/2015 12/04/2019 History of delivery, currently pregnan*09/08/2015 05/07/2016 History of recurrent UTI (urinary tract infecti*09/08/2015 History of herpes genitalis [Z86.19] 09/08/2015 History of depression [Z86.59] 09/08/2015 Tobacco use in [O99.330] 09/08/2015 08/29/2016 History of marijuana use [F12.91] 09/08/2015 H/O macrosomia in in prior , cu*09/08/2015 08/29/2016 Patient requested diagnostic testing [Z01.89] 09/08/2015 11/21/2015 History of kidney stones [Z87.442] 09/08/2015 09/13/2015 Trichomonal vaginitis during in secon*11/28/2015 08/29/2016 Urgency of urination [R39.15] 01/19/2016 08/29/2016 Frequency of micturition [R35.0] 01/19/2016 08/29/2016 UTI (urinary tract infection) in , ant*02/16/2016 02/16/2016 RLS (restless legs syndrome) [G25.81] 08/29/2016 Iron deficiency [E61.1] 08/29/2016 12/04/2019 Anemia due to vitamin B12 deficiency [D51.9] 08/29/2016 Anemia [D64.9] 08/07/2017 Cervical high risk HPV (human papillomavirus) t*08/06/2018 FLOR (obstructive sleep apnea) [G47.33] 10/28/2019 Seizures (HCC) [R56.9] 03/09/2020 History of Angelika-en-Y gastric bypass [Z98.84] 03/09/2020 Vitamin D deficiency [E55.9] 07/12/2021 Folic acid deficiency (non anemic) [E53.8] 07/13/2021 GERD without esophagitis [K21.9] 10/03/2021 Carpal tunnel syndrome [G56.00] 04/04/2022 Hyperbilirubinemia [E80.6] 04/04/2022 ASCUS with positive high risk HPV cervical [R87*05/29/2023 Encounter Status:Closed by LILIANA SMITH on 09/29/24 Normal [facility] Vitamin B1, Thiamineon 09-28 VIT B1 THIAMINE 98.5 nmol/L Normal 66.5-200.0 [facility] Comment on above: Order Comment: Test( s) [id number]-Nrq. B1, Whole Bloodwas developed and its performance characteristicsdetermined by [facility]. It has not been cleared or approvedby the Food and Drug Administration. Result Comment: Perf ormed at: - [facility] [id number] Director Of Academic Support: Lisa Ruvalcaba MD, Phone: [phone] Performed By: #### L 506.0200, L503.0106, L503.6030, L500.4050, L3300.8000 ####[facility] [address] [place], [address] [facility] 09-25-2024 [facility] -- CITLALI BECKWITH ([id number]) 1985 F Date Time Provider Department 09/25/24 [facility]ENDRICK [facility] During your visit today, we recorded the following information about you: Nicole Duff MA 09/25/2024 9:53 AM Signed View External Labs - Miscellaneous Lab [ID [id number]] View External Labs - Miscellaneous Lab [ID [id number]] View External Labs - [facility]-Blood type [ID [id number]] Paul Kendrick MD 09/28/2024 11:58 AM Signed Blood counts are ok. Iron is low. Likely due to her history of gi surgery. After surgery, start on iron iron once a day. Recheck cbc and iron in four to six weeks. Make sure no signs of black or bloody stools. Nicole Duff MA 09/28/2024 12:56 PM Signed Patient made aware of provider message. She declines of any black or bloody stools. She will start the iron as advised and recheck labs Allergies As of Date: 09/25/2024 Noted Allergy Reaction ADHESIVE TAPE (ROSINS) 08/14/2013 2 - Rash ASPIRIN 08/14/2013 Comments: Unable to take aspirin after having gastric bypass surgery EFFEXOR (VENLAFAXINE) 05/01/2017 14 - Other: See Comments Comments: Dry heaves, shaking uncotrollable LATEX 07/09/2007 2 - Rash NSAIDS (NON-STEROIDAL ANTI-INFLAM*07/05/2014 Comments: due to gastric bypass WELLBUTRIN (BUPROPION HCL) 11/28/2006 14 - Other: See Comments Comments: Seizure-was on overdose. Has taken it since then and done fine. Date Reviewed: 09/14/2024 Reviewed by: Isabel Rodriges LPN - Fully Assessed Reason for Visit: Results [95] Primary Visit Diagnosis:Low iron [E61.1] Order(s):COMPLETE BLOOD COUNT AND DIFFERENTIAL [SQCBCDIF] Order #: [id number] FUTURE IRON AND TIBC [SQIRON] Order #: [id number] FUTURE ferrous sulfate (IRON) 325 mg (65 mg iron) tabletTake 1 tablet by mouth two times a day.Disp: 60 tabletRfl: 5 Prescriptions as of 09/28/2024 - ferrous sulfate (IRON) 325 mg (65 mg iron) tablet Take 1 tablet by mouth two times a day. - cephALEXin (KEFLEX) 250 mg capsule Take 1 capsule by mouth once daily. - gabapentin (NEURONTIN) 300 mg capsule Take 3 capsules by mouth daily at bedtime for 180 days. - traZODone (DESYREL) 100 mg tablet Take 1 tablet by mouth daily at bedtime. - dextroamphetamine SR (DEXEDRINE SPANSULE) 15 mg biphasic capsule TAKE 2 CAPSULES BY MOUTH 2 TIMES A DAY (MORNING AND AFTERNOON) - lansoprazole (PREVACID) 30 mg capsule Take 1 capsule by mouth daily before breakfast. 1/2 hr before meal. - cyanocobalamin 1,000 mcg/mL Inject 1 mL intramuscularly once every month. - valACYclovir (VALTREX) 500 mg tablet Take one tablet by mouth once a day. - lidocaine urojet (GLYDO) 2 % jelp Apply 5 mL to affected area three times a day as needed. - Acidophilus-Pectin, Soddy-Daisy 25 million cell -100 mg tab Take 1 tablet by mouth every afternoon. - Cholecalciferol, Vitamin D3, 25 mcg (1,000 unit) cap Take 1 capsule by mouth once daily. - levonorgestrel (MIRENA) 20 mcg/24 hours (7 yrs) 52 mg IUD 1 Each by INTRAUTERINE route as directed. Problem List As Of Date 09/25/2024 Noted Resolved ADJUSTMENT REACTION NOS [F43.20] 12/19/2006 07/14/2007 Seborrheic dermatitis, unspecified [L21.9] 06/12/2007 08/29/2016 Attention deficit disorder [F98.8] 07/14/2007 08/29/2016 Adjustment disorder with depressed mood [F43.21]07/14/2007 08/29/2016 Tobacco use [Z72.0] 08/26/2007 Routine general medical examination at [facility]*06/30/2009 09/13/2015 Class: Chronic Routine gynecological examination [Z01.419] 06/30/2009 09/13/2015 Class: Chronic Morbid obesity (HCC) [E66.01] 06/30/2009 09/13/2015 Insomnia [G47.00] 06/30/2009 09/13/2015 Thrombosed external hemorrhoid [K64.5] 08/14/2013 09/13/2015 Recurrent UTI (urinary tract infection) complic*07/22/2014 08/29/2016 Kidney stones [N20.0] 07/22/2014 09/13/2015 Marijuana abuse [F12.10] 04/27/2015 08/29/2016 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] 09/08/2015 12/04/2019 History of delivery, currently pregnan*09/08/2015 05/07/2016 History of recurrent UTI (urinary tract infecti*09/08/2015 History of herpes genitalis [Z86.19] 09/08/2015 History of depression [Z86.59] 09/08/2015 Tobacco use in [O99.330] 09/08/2015 08/29/2016 History of marijuana use [F12.91] 09/08/2015 H/O macrosomia in infant in prior , cu*09/08/2015 08/29/2016 Patient requested diagnostic testing [Z01.89] 09/08/2015 11/21/2015 History of kidney stones [Z87.442] 09/08/2015 09/13/2015 Trichomonal vaginitis during in secon*11/28/2015 08/29/2016 Urgency of urination [R39.15] 01/19/2016 08/29/2016 Frequency of micturition [R35.0] 01/19/2016 08/29/2016 UTI (urinary tract infection) in , ant*02/16/2016 02/16/2016 RLS (restless legs syndrome) [G25.81] 08/29/2016 Iron deficiency [E61.1] 08/29/2016 12/04/2019 Anemia due to vitamin B12 deficiency [D51.9] 08/29/2016 Anemia [D64.9] 08/07/2017 Cervical high risk HPV (human (more content not included)... Normal [facility] Hepatitis A AB, Totalon 08-31 HEPATITIS A,TOT Negative Normal Negative [facility] Comment on above: Result Comment: Comm ent: The HAV total antibody assay detects both IgG and IgM but does not differentiate between them. A negative result suggests susceptibility to infection. A positive result could be due to vaccination, previously resolved infection or active infection. Testing for HAV IgM should be performed if active HAV infection is suspected. [facility] offers profiles that will automatically reflex positive HAV total antibody results to IgM (e.g., panel #[id number] HAV Antibody w/ Rfx). Performed at: [place] [id number] Director Of Academic Support: Shashi Jarvis PhD, Phone: [phone] Performed By: #### L 501.9985, BTSPAT, M100.651, L3100.0300, L100.0100, L3890.6006, L500.2500, L3890.6202, L3890.6301 ####[facility] [address] [place], [address] Anion gap in Serum or Plasma Ordered By: aPul Kendrick on 09-23-2024 Anion gap [Moles/Vol] 9 mmol/L 08-13 [facility] BUN/creatinine ratioOrdered By: Paul Kendrick on 09-23-2024 Urea nitrogen/Creatinine [Mass ratio] 14.3 mg/mg 01-18 [facility] Basic Metabolic Profile (BMP )on 09-23-2024 BUN/CRE 14.0 RATIO Normal 10-20 [facility] Comment on above: Performed By: #### L 501.9985, BTSPAT, M100.651, L3100.0300, L100.0100, L3890.6006, L500.2500, L3890.6202, L3890.6301 ####[facility] [address] [place], [address] Calcium [Mass/Vol] 8.8 mg/dL Normal 7.6-11.0 [facility] Comment on above: Performed By: #### L 501.9985, BTSPAT, M100.651, L3100.0300, L100.0100, L3890.6006, L500.2500, L3890.6202, L3890.6301 ####[facility] [address] [place], [address] Chloride [Moles/Vol] 106 mmol/L Normal 98-108 [facility] Comment on above: Performed By: #### L 501.9985, BTSPAT, M100.651, L3100.0300, L100.0100, L3890.6006, L500.2500, L3890.6202, L3890.6301 ####[facility] [address] [place], [address] CO2 [Moles/Vol] 23.7 mmol/L Normal 21.0-32.0 [facility] Comment on above: Performed By: #### L 501.9985, BTSPAT, M100.651, L3100.0300, L100.0100, L3890.6006, L500.2500, L3890.6202, L3890.6301 ####[facility] [address] [place], [address] Creatinine [Mass/Vol] 0.91 mg/dL Normal 0.70-1.20 [facility] Comment on above: Performed By: #### L 501.9985, BTSPAT, M100.651, L3100.0300, L100.0100, L3890.6006, L500.2500, L3890.6202, L3890.6301 ####[facility] [address] [place], [address] GAP 11 Normal 5-15 [facility] Comment on above: Performed By: #### L 501.9985, BTSPAT, M100.651, L3100.0300, L100.0100, L3890.6006, L500.2500, L3890.6202, L3890.6301 ####[facility] [address] [place], [address] GFR/1.73 sq M.predicted among non-blacks MDRD (S/P/Bld) [Vol rate/Area] 82 mL/min/{1.73_m2} Normal >60 [facility] Comment on above: Result Comment: mL/m in/1.73m2 CKD-EPI Creatinine Equation (2020) Performed By: #### L 501.9985, BTSPAT, M100.651, L3100.0300, L100.0100, L3890.6006, L500.2500, L3890.6202, L3890.6301 ####[facility] [address] [place], [address] Glucose [Mass/Vol] 92 mg/dL Normal 70-99 [facility] Comment on above: Performed By: #### L 501.9985, BTSPAT, M100.651, L3100.0300, L100.0100, L3890.6006, L500.2500, L3890.6202, L3890.6301 ####[facility] [address] [place], [address] Potassium [Moles/Vol] 3.8 mmol/L Normal 3.3-5.1 [facility] Comment on above: Performed By: #### L 501.9985, BTSPAT, M100.651, L3100.0300, L100.0100, L3890.6006, L500.2500, L3890.6202, L3890.6301 ####[facility] [address] [place], [address] Sodium [Moles/Vol] 140 mmol/L Normal 133-145 [facility] Comment on above: Performed By: #### L 501.9985, BTSPAT, M100.651, L3100.0300, L100.0100, L3890.6006, L500.2500, L3890.6202, L3890.6301 ####[facility] [address] [place], [address] Urea nitrogen [Mass/Vol] 13 mg/dL Normal 4-19 [facility] Comment on above: Performed By: #### L 501.9985, BTSPAT, M100.651, L3100.0300, L100.0100, L3890.6006, L500.2500, L3890.6202, L3890.6301 ####[facility] [address] [place], [address] Bilirubin, totalOrdered By: Paul Kendrick on 09-23-2024 Bilirubin [Mass/Vol] 1.56 mg/dL High 0.00-1.30 [facility] CBC W/Diff, Automatedon 08-31 Absolute Lymph 1.50 X10 3/uL Normal 0.83-4.51 [facility] Comment on above: Order Comment: DR CHAVIRA ALSO ORDERED CBCD Performed By: #### L 501.9985, BTSPAT, M100.651, L3100.0300, L100.0100, L3890.6006, L500.2500, L3890.6202, L3890.6301 #### [facility] [address] [place], [address] Absolute Neut 3.7 X10 3/uL Normal 2.0-7.7 [facility] Comment on above: Order Comment: DR CHAVIRA ALSO ORDERED CBCD Performed By: #### L 501.9985, BTSPAT, M100.651, L3100.0300, L100.0100, L3890.6006, L500.2500, L3890.6202, L3890.6301 #### [facility] [address] [place], [address] Basophils/100 WBC (Bld) 0.7 % Normal 0-1 [facility] Comment on above: Order Comment: DR CHAVIRA ALSO ORDERED CBCD Performed By: #### L 501.9985, BTSPAT, M100.651, L3100.0300, L100.0100, L3890.6006, L500.2500, L3890.6202, L3890.6301 #### [facility] [address] [place], [address] Eosinophils/100 WBC (Bld) 2.1 % Normal 0-5 [facility] Comment on above: Order Comment: DR CHAVIRA ALSO ORDERED CBCD Performed By: #### L 501.9985, BTSPAT, M100.651, L3100.0300, L100.0100, L3890.6006, L500.2500, L3890.6202, L3890.6301 #### [facility] [address] [place], [address] Erythrocyte distribution width (RBC) [Ratio] 12.4 % Normal 11.6-14.6 [facility] Comment on above: Order Comment: DR CHAVIRA ALSO ORDERED CBCD Performed By: #### L 501.9985, BTSPAT, M100.651, L3100.0300, L100.0100, L3890.6006, L500.2500, L3890.6202, L3890.6301 #### [facility] [address] [facility] [place], [address] Hematocrit (Bld) [Volume fraction] 36.7 % Low 37-47 [facility] Comment on above: Order Comment: DR CHAVIRA ALSO ORDERED CBCD Performed By: #### L 501.9985, BTSPAT, M100.651, L3100.0300, L100.0100, L3890.6006, L500.2500, L3890.6202, L3890.6301 #### [facility] [address] [place], [address] Hemoglobin (Bld) [Mass/Vol] 12.4 g/dL Normal 12.0-15.0 [facility] Comment on above: Order Comment: DR CHAVIRA ALSO ORDERED CBCD Performed By: #### L 501.9985, BTSPAT, M100.651, L3100.0300, L100.0100, L3890.6006, L500.2500, L3890.6202, L3890.6301 #### [facility] [address] [place], [address] IG% 0.200 Normal 0.0-0.9 [facility] Comment on above: Order Comment: DR CHAVIRA ALSO ORDERED CBCD Result Comment: IG% - Immature Granulocytes (promyelocytes, myelocytes and metamyelocytes) > 1% indicates that a LEFT SHIFT is Present. Performed By: #### L 501.9985, BTSPAT, M100.651, L3100.0300, L100.0100, L3890.6006, L500.2500, L3890.6202, L3890.6301 #### [facility] [address] [place], [address] Lymphocytes/100 WBC (Bld) 26.0 % Normal 19-41 [facility] Comment on above: Order Comment: DR CHAVIRA ALSO ORDERED CBCD Performed By: #### L 501.9985, BTSPAT, M100.651, L3100.0300, L100.0100, L3890.6006, L500.2500, L3890.6202, L3890.6301 #### [facility] [address] [place], [address] MCH (RBC) [Entitic mass] 29.7 pg Normal 27.0-32.0 [facility] Comment on above: Order Comment: DR CHAVIRA ALSO ORDERED CBCD Performed By: #### L 501.9985, BTSPAT, M100.651, L3100.0300, L100.0100, L3890.6006, L500.2500, L3890.6202, L3890.6301 #### [facility] [address] [place], [address] MCHC (RBC) [Mass/Vol] 33.8 g/dL Normal 32-36 [facility] Comment on above: Order Comment: DR CHAVIRA ALSO ORDERED CBCD Performed By: #### L 501.9985, BTSPAT, M100.651, L3100.0300, L100.0100, L3890.6006, L500.2500, L3890.6202, L3890.6301 #### [facility] [address] [place], [address] MCV (RBC) [Entitic vol] 87.8 fL Normal 81-99 [facility] Comment on above: Order Comment: DR CHAVIRA ALSO ORDERED CBCD Performed By: #### L 501.9985, BTSPAT, M100.651, L3100.0300, L100.0100, L3890.6006, L500.2500, L3890.6202, L3890.6301 #### [facility] [address] [place], [address] Monocytes/100 WBC (Bld) 6.4 % Normal 0-10 [facility] Comment on above: Order Comment: DR CHAVIRA ALSO ORDERED CBCD Performed By: #### L 501.9985, BTSPAT, M100.651, L3100.0300, L100.0100, L3890.6006, L500.2500, L3890.6202, L3890.6301 #### [facility] [address], [address] Neutrophils/100 WBC (Bld) 64.6 % Normal 47-70 [facility] Comment on above: Order Comment: DR CHAVIRA ALSO ORDERED CBCD Performed By: #### L 501.9985, BTSPAT, M100.651, L3100.0300, L100.0100, L3890.6006, L500.2500, L3890.6202, L3890.6301 #### [facility] [address] [place], [address] Nucleated RBC (Bld) [#/Vol] 0 10*3/uL Normal 0-5 [facility] Comment on above: Order Comment: DR CHAVIRA ALSO ORDERED CBCD Performed By: #### L 501.9985, BTSPAT, M100.651, L3100.0300, L100.0100, L3890.6006, L500.2500, L3890.6202, L3890.6301 #### [facility] [address] [facility] [place], [address] Platelet mean volume (Bld) [Entitic vol] 10.0 fL Normal 6.2-12.0 [facility] Comment on above: Order Comment: DR CHAVIRA ALSO ORDERED CBCD Performed By: #### L 501.9985, BTSPAT, M100.651, L3100.0300, L100.0100, L3890.6006, L500.2500, L3890.6202, L3890.6301 #### [facility] [address] [facility] [place], [address] Platelets (Bld) [#/Vol] 240 10*3/uL Normal 150-450 [facility] Comment on above: Order Comment: DR CHAVIRA ALSO ORDERED CBCD Performed By: #### L 501.9985, BTSPAT, M100.651, L3100.0300, L100.0100, L3890.6006, L500.2500, L3890.6202, L3890.6301 #### [facility] [address] [place], [address] RBC (Bld) [#/Vol] 4.18 10*6/uL Low 4.2-5.4 [facility] Comment on above: Order Comment: DR CHAVIRA ALSO ORDERED CBCD Performed By: #### L 501.9985, BTSPAT, M100.651, L3100.0300, L100.0100, L3890.6006, L500.2500, L3890.6202, L3890.6301 #### [facility] [address] [place], [address] RDW SD 39.7 fl Normal 35.1-43.9 [facility] Comment on above: Order Comment: DR CHAVIRA ALSO ORDERED CBCD Performed By: #### L 501.9985, BTSPAT, M100.651, L3100.0300, L100.0100, L3890.6006, L500.2500, L3890.6202, L3890.6301 #### [facility] [address] [place], [address] WBC (Bld) [#/Vol] 5.8 10*3/uL Normal 4.4-11.0 [facility] Comment on above: Order Comment: DR CHAVIRA ALSO ORDERED CBCD Performed By: #### L 501.9985, BTSPAT, M100.651, L3100.0300, L100.0100, L3890.6006, L500.2500, L3890.6202, L3890.6301 #### [facility] [address] [place], [address] Carbon dioxide, total [Moles /volume] in Central venous bloodOrdered By: Paul Kendrick on 09-23-2024 CO2 [Moles/Vol] 24.9 mmol/L 21.0-32.0 [facility] Chloride assayOrdered By: Rosa millscassius Aroldo on 09-23-2024 Chloride [Moles/Vol] 106 mmol/L 98-108 [facility] Comprehensive Metabolic Prof ilon 09-23-2024 Albumin [Mass/Vol] 4.0 g/dL Normal 3.5-5.0 [facility] Comment on above: Performed By: #### L 506.0200, L503.0106, L503.6030, L500.4050, L3300.8000 ####[facility] [address] [place], [address] Albumin/Globulin [Mass ratio] 1.6 {ratio} Normal 0.9-2.4 [facility] Comment on above: Performed By: #### L 506.0200, L503.0106, L503.6030, L500.4050, L3300.8000 ####[facility] [address] [place], [address] ALK PHOS 72 U/L Normal 35-104 [facility] Comment on above: Performed By: #### L 506.0200, L503.0106, L503.6030, L500.4050, L3300.8000 ####[facility] [address] [place], [address] ALT [Catalytic activity/Vol] 24 U/L Normal <=34 [facility] Comment on above: Performed By: #### L 506.0200, L503.0106, L503.6030, L500.4050, L3300.8000 ####[facility] [address] [place], [address] AST [Catalytic activity/Vol] 23 U/L Normal <=31 [facility] Comment on above: Performed By: #### L 506.0200, L503.0106, L503.6030, L500.4050, L3300.8000 ####[facility] [address] [place], [address] Bilirubin [Mass/Vol] 1.56 mg/dL High 0.00-1.30 [facility] Comment on above: Performed By: #### L 506.0200, L503.0106, L503.6030, L500.4050, L3300.8000 ####[facility] [address] [place], [address] BUN/CRE 14.3 RATIO Normal 10-20 [facility] Comment on above: Performed By: #### L 506.0200, L503.0106, L503.6030, L500.4050, L3300.8000 ####[facility] [address] [place], [address] Calcium [Mass/Vol] 8.8 mg/dL Normal 7.6-11.0 [facility] Comment on above: Performed By: #### L 506.0200, L503.0106, L503.6030, L500.4050, L3300.8000 ####[facility] [address] [place], [address] Chloride [Moles/Vol] 106 mmol/L Normal 98-108 [facility] Comment on above: Performed By: #### L 506.0200, L503.0106, L503.6030, L500.4050, L3300.8000 ####[facility] [address] [place], [address] CO2 [Moles/Vol] 24.9 mmol/L Normal 21.0-32.0 [facility] Comment on above: Performed By: #### L 506.0200, L503.0106, L503.6030, L500.4050, L3300.8000 ####[facility] [address] [place], [address] Creatinine [Mass/Vol] 0.89 mg/dL Normal 0.70-1.20 [facility] Comment on above: Performed By: #### L 506.0200, L503.0106, L503.6030, L500.4050, L3300.8000 ####[facility] [address] [place], [address] GAP 9 Normal 5-15 [facility] Comment on above: Performed By: #### L 506.0200, L503.0106, L503.6030, L500.4050, L3300.8000 ####[facility] [address] [place], [address] GFR/1.73 sq M.predicted among non-blacks MDRD (S/P/Bld) [Vol rate/Area] 84 mL/min/{1.73_m2} Normal >60 [facility] Comment on above: Result Comment: mL/m in/1.73m2 CKD-EPI Creatinine Equation (2020) Performed By: #### L 506.0200, L503.0106, L503.6030, L500.4050, L3300.8000 ####[facility] [address] [place], [address] Globulin (S) [Mass/Vol] 2.6 g/dL Normal 2.2-4.2 [facility] Comment on above: Performed By: #### L 506.0200, L503.0106, L503.6030, L500.4050, L3300.8000 ####[facility] [address] [place], [address] Glucose [Mass/Vol] 94 mg/dL Normal 70-99 [facility] Comment on above: Performed By: #### L 506.0200, L503.0106, L503.6030, L500.4050, L3300.8000 ####[facility] [address] [place], [address] Potassium [Moles/Vol] 3.8 mmol/L Normal 3.3-5.1 [facility] Comment on above: Performed By: #### L 506.0200, L503.0106, L503.6030, L500.4050, L3300.8000 ####[facility] [address] [place], [address] Sodium [Moles/Vol] 140 mmol/L Normal 133-145 [facility] Comment on above: Performed By: #### L 506.0200, L503.0106, L503.6030, L500.4050, L3300.8000 ####[facility] [address] [place], [address] T PROT 6.6 g/dL Normal 5.9-8.4 [facility] Comment on above: Performed By: #### L 506.0200, L503.0106, L503.6030, L500.4050, L3300.8000 ####[facility] [address] [place], [address] Urea nitrogen [Mass/Vol] 13 mg/dL Normal 4-19 [facility] Comment on above: Performed By: #### L 506.0200, L503.0106, L503.6030, L500.4050, L3300.8000 ####[facility] [address] [place], [address] Folate [Moles/volume] in Ser um or PlasmaOrdered By: Paul Kendrick on 09-23-2024 Folate [Moles/Vol] 18.00 ng/mL 4.60-34.80 [facility] Folates,Serum (Folic Acid)on 09-23-2024 FOLATES,SERUM 18.00 ng/mL Normal 4.60-34.80 [facility] Comment on above: Order Comment: N Performed By: #### L 506.0200, L503.0106, L503.6030, L500.4050, L3300.8000 ####[facility] [address] [place], [place], [address] Glomerular filtration rate ( GFR) estimation/1.73 sq m using serum, plasma, or whole bOrdered By: Paul Kendrick on 09-23-2024 GFR/1.73 sq M.predicted among non-blacks MDRD (S/P/Bld) [Vol rate/Area] 84 mL/min/{1.73_m2} >60 [facility] Comment on above: mL/min/1.73m2 CKD-EP I Creatinine Equation (2020) HIVon 09-23-2024 HIV Non-Reactive Normal Nonreactive [facility] Comment on above: Result Comment: Non- Reactive Reactive Repeatedly reactive samples must be confirmed according to CDC recommended confirmatory algorithms. The subresults for either HIVAG or AHIV can be used as an aid in the selection of the confirmation algorithm for reactive samples. Send out specimens with Reactive results to [facility] for confirmation. Order the HIV antibody detection and differentiation: #[id number] AMENDED REPORT 09/23/24 1738 HIV previously reported as: No_Result Non-Reactive Reactive Repeatedly reactive samples must be confirmed according to CDC recommended confirmatory algorithms. The subresults for either HIVAG or AHIV can be used as an aid in the selection of the confirmation algorithm for reactive samples. Send out specimens with Reactive results to [facility] for confirmation. Order the HIV antibody detection and differentiation: lc#[id number] Performed By: #### L 501.9985, BTSPAT, M100.651, L3100.0300, L100.0100, L3890.6006, L500.2500, L3890.6202, L3890.6301 ####[facility] [address] [place], [place], [address] Hemoglobin A1con 09-23-2024 HbA1c (Bld) [Mass fraction] 5.2 % Normal <=5.6 [facility] Comment on above: Result Comment: Norm al < 5.7 % Prediabetic 5.7 - 6.4 % Diabetic >or= 6.5 % Please note range changes. Performed By: #### L 501.9985, BTSPAT, M100.651, L3100.0300, L100.0100, L3890.6006, L500.2500, L3890.6202, L3890.6301 #### [facility] [address] [facility] [place], [place], [address] Hepatitis B Surface Antibody on 09-23-2024 HEP B Surf Ab Non-Reactive Normal [facility] Comment on above: Result Comment: <8.5 mIU/mL: Non-Reactive 8.5<= x <11.5 mIU/mL: Indeterminate >=11.5 mIU/mL: Reactive Non Reactive: Inconsistent with immunity less than <10 mIU/mL Reactive: Consistent with immunity greater than or equal to 10 mIU/mL Performed By: #### L 501.9985, BTSPAT, M100.651, L3100.0300, L100.0100, L3890.6006, L500.2500, L3890.6202, L3890.6301 #### [facility] [address] [facility] [place], [place], [address] Hepatitis C Antibodyon 09-23 Hepatitis C Ab Non-Reactive Normal Nonreactive [facility] Comment on above: Result Comment: Reac tive: Presumptive evidence of antibodies to HCV. Follow CDC recommendations for supplemental testing. Non-Reactive: Antibodies to HCV were not detected; does not exclude the possibility of exposure to HCV Reactive Results are presumptive evidence of antibodies to HCV. Follow CDC recommendations for supplemental testing. Order confirmation testing: HCV Quant by PCR testing - HCVPCR lc#[id number] Non Reactive: < 0.8 Equivocal: >/= 0.8 to < 1.0 Reactive: >/= 1.0 The CDC requires that a reactive/equivocal HCV antibody result be sent out for confirmation. HCV Quant by PCR testing. AMENDED REPORT 09/23/24 1738 HEPATITIS C AB previously reported as: No_Result Reactive: Presumptive evidence of antibodies to HCV. Follow CDC recommendations for supplemental testing. Non-Reactive: Antibodies to HCV were not detected; does not exclude the possibility of exposure to HCV Reactive Results are presumptive evidence of antibodies to HCV. Follow CDC recommendations for supplemental testing. Order confirmation testing: HCV Quant by PCR testing - HCVPCR lc#[id number] Performed By: #### L 501.9985, BTSPAT, M100.651, L3100.0300, L100.0100, L3890.6006, L500.2500, L3890.6202, L3890.6301 ####[facility] [address] [place], [address] Iron measurement (mass/mass) Ordered By: Paul Kendrick on 09-23-2024 Iron (Unsp spec) [Mass/Mass] 48 ug/dL Low 50-170 [facility] Iron+Iron Binding Capacityon 09-23-2024 Iron [Mass/Vol] 48 ug/dL Low 50-170 [facility] Comment on above: Performed By: #### L 506.0200, L503.0106, L503.6030, L500.4050, L3300.8000 ####[facility] [address] [place], [address] IRON SATURATION 13.0 Normal 13-59 [facility] Comment on above: Performed By: #### L 506.0200, L503.0106, L503.6030, L500.4050, L3300.8000 ####[facility] [address] [place], [address] TIBC 361 ug/dL Normal 250-450 [facility] Comment on above: Performed By: #### L 506.0200, L503.0106, L503.6030, L500.4050, L3300.8000 ####[facility] [address] [place], [address] UIBC 313 ug/dL Normal 228-428 [facility] Comment on above: Performed By: #### L 506.0200, L503.0106, L503.6030, L500.4050, L3300.8000 ####[facility] [address] [place], [address] Laboratory - Chemistry and C hemistry - challengeOrdered By: Paul Kendrick on 09-23-2024 AST [Catalytic activity/Vol] 23 U/L <32 [facility] MRSA/SAID NASAL SCREENon MRSA+SAID SCRN Reason for Exam: Salima ruy MRSA MRSA Negative S. AUREUS S. aureus Negative Normal [facility] Comment on above: Performed By: #### L 501.9985, BTSPAT, M100.651, L3100.0300, L100.0100, L3890.6006, L500.2500, L3890.6202, L3890.6301 ####[facility] [address] [place], [place], [address] Magnesiumon 09-23-2024 Magnesium [Mass/Vol] 2.1 mg/dL Normal 1.5-2.2 [facility] Comment on above: Performed By: #### L 501.5200 ####[facility] [address] [place], [place], [address] No Panel InformationOrdered By: Paul Kendrick on 09-23-2024 Unsaturated Iron Binding Capacity 313 ug/dL 228-428 [facility] Potassium measurement (mass/ volume)Ordered By: Paul Kendrick on 09-23-2024 Potassium (Unsp spec) [Mass/Vol] 3.8 mmol/L 3.3-5.1 [facility] Serum creatinine measurement (mass/volume)Ordered By: Paul Kendrick on 09-23-2024 Creatinine [Mass/Vol] 0.89 mg/dL 0.70-1.20 [facility] Serum globulin measurementOr dered By: Paul Kendrick on 09-23-2024 Globulin (S) [Mass/Vol] 2.6 g/dL 2.2-4.2 [facility] Serum glucose measurement (m ass/volume)Ordered By: Paul Kendrick on 09-23-2024 Glucose [Mass/Vol] 94 mg/dL 70-99 [facility] Serum or plasma alanine barrow otransferase (ALT) measurementOrdered By: Paul Kendrick on 09-23-2024 ALT [Catalytic activity/Vol] 24 U/L <35 [facility] Serum or plasma albumin sheryl urement (mass/volume)Ordered By: Paul Kendrick on 09-23-2024 Albumin [Mass/Vol] 4.0 g/dL 3.5-5.0 [facility] Serum or plasma albumin/glob ulin mass ratioOrdered By: Paul Kendrick on 09-23-2024 Albumin/Globulin [Mass ratio] 1.6 {ratio} 0.9-2.4 [facility] Serum or plasma alkaline suzy sphatase measurementOrdered By: Paul Kendrick on 09-23-2024 ALP [Catalytic activity/Vol] 72 U/L 35-104 [facility] Serum or plasma calcium sheryl urement (mass/volume)Ordered By: Paul Kendrick on 09-23-2024 Calcium [Mass/Vol] 8.8 mg/dL 7.6-11.0 [facility] Serum or plasma iron saturat ion measurement (mass fraction)Ordered By: Paul Kendrick on 09-23-2024 Iron saturation [Mass fraction] 13.0 % 13-59 [facility] Serum or plasma urea nitroge n measurement (mass/volume)Ordered By: Paul Kendrick on 09-23-2024 Urea nitrogen [Mass/Vol] 13 mg/dL 4-19 [facility] Sodium levelOrdered By: Pepe harveym Aroldo on 09-23-2024 Sodium [Moles/Vol] 140 mmol/L 133-145 [facility] Total proteinOrdered By: Erick Kendrick on 09-23-2024 Protein [Mass/Vol] 6.6 g/dL 5.9-8.4 [facility] Type AND Screen - PAT ONLYon 09-23-2024 ABO and Rh group Nom (Bld) Blood group A Rh(D) positive Normal [facility] Comment on above: Order Comment: Surge ry Date: 09/30/24 Reason for Laboratory Test PREOP [id number] No N N S LUMBER DISCECTOMY L5-S1 Performed By: #### L 501.9985, BTSPAT, M100.651, L3100.0300, L100.0100, L3890.6006, L500.2500, L3890.6202, L3890.6301 #### [facility] [address] [place], [place], [address] Vitamin B12on 09-23-2024 Cobalamin (Vitamin B12) [Mass/Vol] 1160 pg/mL High 180-914 [facility] Comment on above: Performed By: #### L 506.0200, L503.0106, L503.6030, L500.4050, L3300.8000 ####[facility] [address] [place], [address] Vitamin B12 ser/plasOrdered By: Paul Kendrick on 09-23-2024 Cobalamin (Vitamin B12) [Mass/Vol] 1160 pg/mL High 180-914 [facility] CNPNon 09-22-2024 CNPN Telephone (TENZIN) -- CITLALI BECKWITH ([id number]) 1985 F Date Time Provider Department 09/22/24 [facility] During your visit today, we recorded the following information about you: Mercedez Rojas, RN 09/22/2024 9:14 AM Signed Pt calling in as she is scheduled for surgery on 09/30. Pt had an EKG in the office on 09/[address] Kendrick. No report found yet. Pt states the hospital pre op dept had called over for it and was told no report. Pt wanted to call and confirm that she had it done. Per Dr. Kendrick's OV note under assessment and plan, he documents the following: ASSESSMENT AND PLAN 1. 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 - Scheduled for L5-S1 left microdiscectomy on 09/30/24 by Dr. Pizano at [facility]. - No previous anesthesia complications reported. - Ordered EKG to ensure cardiac stability prior to surgery. EKG normal with NSR - Medical clearance form completed. Pt is going to call and see if that will suffice and if it doesn't, she will send [facility] ms requesting report. Mercedez Rjoas RN 09/22/2024 9:40 AM Signed Called pt and got phone number for nurse at [facility]. Called and spoke with Carmita and fax # is [phone]. She would like the actual copy of the EKG faxed when we get it. Nicole Duff MA 09/22/2024 9:41 AM Signed EKG was retransmitted and printed and faxed as requested. Will scan to the chart as well Allergies As of Date: 09/22/2024 Noted Allergy Reaction ADHESIVE TAPE (ROSINS) 08/14/2013 2 - Rash ASPIRIN 08/14/2013 Comments: Unable to take aspirin after having gastric bypass surgery EFFEXOR (VENLAFAXINE) 05/01/2017 14 - Other: See Comments Comments: Dry heaves, shaking uncotrollable LATEX 07/09/2007 2 - Rash NSAIDS (NON-STEROIDAL ANTI-INFLAM*07/05/2014 Comments: due to gastric bypass WELLBUTRIN (BUPROPION HCL) 11/28/2006 14 - Other: See Comments Comments: Seizure-was on overdose. Has taken it since then and done fine. Date Reviewed: 09/14/2024 Reviewed by: Isabel Rodriges LPN - Fully Assessed Reason for Visit: Patient Question [6143] Cmt: Re: EKG report Prescriptions as of 09/22/2024 - cephALEXin (KEFLEX) 250 mg capsule Take 1 capsule by mouth once daily. - gabapentin (NEURONTIN) 300 mg capsule Take 3 capsules by mouth daily at bedtime for 180 days. - traZODone (DESYREL) 100 mg tablet Take 1 tablet by mouth daily at bedtime. - dextroamphetamine SR (DEXEDRINE SPANSULE) 15 mg biphasic capsule TAKE 2 CAPSULES BY MOUTH 2 TIMES A DAY (MORNING AND AFTERNOON) - lansoprazole (PREVACID) 30 mg capsule Take 1 capsule by mouth daily before breakfast. 1/2 hr before meal. - cyanocobalamin 1,000 mcg/mL Inject 1 mL intramuscularly once every month. - valACYclovir (VALTREX) 500 mg tablet Take one tablet by mouth once a day. - lidocaine urojet (GLYDO) 2 % jelp Apply 5 mL to affected area three times a day as needed. - Acidophilus-Pectin, Soddy-Daisy 25 million cell -100 mg tab Take 1 tablet by mouth every afternoon. - Cholecalciferol, Vitamin D3, 25 mcg (1,000 unit) cap Take 1 capsule by mouth once daily. - levonorgestrel (MIRENA) 20 mcg/24 hours (7 yrs) 52 mg IUD 1 Each by INTRAUTERINE route as directed. Problem List As Of Date 09/22/2024 Noted Resolved ADJUSTMENT REACTION NOS [F43.20] 12/19/2006 07/14/2007 Seborrheic dermatitis, unspecified [L21.9] 06/12/2007 08/29/2016 Attention deficit disorder [F98.8] 07/14/2007 08/29/2016 Adjustment disorder with depressed mood [F43.21]07/14/2007 08/29/2016 Tobacco use [Z72.0] 08/26/2007 Routine general medical examination at [facility]*06/30/2009 09/13/2015 Class: Chronic Routine gynecological examination [Z01.419] 06/30/2009 09/13/2015 Class: Chronic Morbid obesity (HCC) [E66.01] 06/30/2009 09/13/2015 Insomnia [G47.00] 06/30/2009 09/13/2015 Thrombosed external hemorrhoid [K64.5] 08/14/2013 09/13/2015 Recurrent UTI (urinary tract infection) complic*07/22/2014 08/29/2016 Kidney stones [N20.0] 07/22/2014 09/13/2015 Marijuana abuse [F12.10] 04/27/2015 08/29/2016 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] 09/08/2015 12/04/2019 History of delivery, currently pregnan*09/08/2015 05/07/2016 History of recurrent UTI (urinary tract infecti*09/08/2015 History of herpes genitalis [Z86.19] 09/08/2015 History of depression [Z86.59] 09/08/2015 Tobacco use in [O99.330] 09/08/2015 08/29/2016 History of marijuana use [F12.91] 09/08/2015 H/O macrosomia in in prior , cu*09/08/2015 08/29/2016 Patient requested diagnostic testing [Z01.89] 09/08/2015 11/21/2015 History of kidney stones [Z87.442] 09/08/2015 09/13/2015 Trichomonal vaginitis during in secon*11/28/2015 08/29/2016 Urgency of urination [R39.15] 01/19/2016 08/29/2016 Frequency of micturition [R35.0] 01/19/2016 08/29/2016 UTI (urinary tract infection) in pregna (more content not included)... Normal [facility] CNOVon 09-14-2024 CNOV Office Visit (FAMPWS ) -- CITLALI BECKWITH ([id number]) 1985 F Date Time Provider Department 09/14/24 6:40 PM [facility] During your visit today, we recorded the following information about you: Pulse Blood pressure Weight 95/minute 122/64 93.4 kg Paul Kendrick MD 09/14/2024 7:44 PM Signed - Expect a phone call on September 14 to confirm your surgery time for the L5-S1 left microdiscectomy with Dr. Pizano at [facility], and another call the day before. If you do not receive these calls, contact the surgical scrub technician?s office. - Arrange blood tests (complete blood count, B12 level, iron, folate) at your convenience - Continue taking your nightly dose of Keflex as prescribed for your urinary tract infection prophylaxis. - Remind the surgical and anesthesia teams that you have mild sleep apnea so they can monitor your breathing after surgery. Paul Kendrick MD 09/14/2024 8:17 PM Signed Citlali Beckwith is a 38-year-old female with a history of recurrent UTIs, nephrolithiasis, and sleep apnea, presenting for preoperative evaluation prior to L5-S1 microdiscectomy. HPI Preoperative Evaluation: - Scheduled for L5-S1 left microdiscectomy on 09/30/2024 at [facility]. - No known personal or family history of anesthesia complications. - No history of cardiac or pulmonary issues. - No history of coagulopathy or bleeding disorders. - No recent seizures. - No current signs of infection, cough, urinary symptoms, nausea, or emesis. - History of severe sleep apnea, now mild; not currently treated. - History of Angelika-en-Y gastric bypass; previously diagnosed with B12 and folate deficiencies. L5-S1 Disc Herniation: - Symptoms began at the end of November, initially perceived as a cold muscle in the buttock. - MRI revealed a large disc herniation causing left S1 radiculopathy. - Last corticosteroid injection was in April. - Reports significant pain exacerbated by chiropractic adjustments. - Denies known trauma or injury. - She states she has a phone call before surgery but does not require preop testing. Recurrent UTIs: - Ongoing UTI issues secondary to nephrolithiasis. - Recent UTI treated with Keflex. - Currently on low-dose Keflex nightly for UTI prophylaxis. - Concerns about antibiotic resistance due to recurrent infections. - No current urinary symptoms. MEDICATIONS: Current Outpatient Medications Medication Sig cephALEXin (KEFLEX) 250 mg capsule Take 1 capsule by mouth once daily. gabapentin (NEURONTIN) 300 mg capsule Take 3 capsules by mouth daily at bedtime for 180 days. traZODone (DESYREL) 100 mg tablet Take 1 tablet by mouth daily at bedtime. dextroamphetamine SR (DEXEDRINE SPANSULE) 15 mg biphasic capsule TAKE 2 CAPSULES BY MOUTH 2 TIMES A DAY (MORNING AND AFTERNOON) lansoprazole (PREVACID) 30 mg capsule Take 1 capsule by mouth daily before breakfast. 1/2 hr before meal. cyanocobalamin 1,000 mcg/mL Inject 1 mL intramuscularly once every month. levonorgestrel (MIRENA) 20 mcg/24 hours (7 yrs) 52 mg IUD 1 Each by INTRAUTERINE route as directed. valACYclovir (VALTREX) 500 mg tablet Take one tablet by mouth once a day. lidocaine urojet (GLYDO) 2 % jelp Apply 5 mL to affected area three times a day as needed. Acidophilus-Pectin, Soddy-Daisy 25 million cell -100 mg tab Take 1 tablet by mouth every afternoon. Cholecalciferol, Vitamin D3, 25 mcg (1,000 unit) cap Take 1 capsule by mouth once daily. No current facility-administered medications for this visit. ALLERGIES: ALLERGIES Allergen Reactions Adhesive Tape (Maite* Rash Aspirin Unable to take aspirin after having gastric bypass surgery Effexor [Venlafaxin* Other: See Comments Dry heaves, shaking uncotrollable Latex Rash Nsaids (Non-Steroid* due to gastric bypass Wellbutrin [Bupropi* Other: See Comments Seizure-was on overdose. Has taken it since then and done fine. PAST MEDICAL HISTORY Diagnosis Date Anemia ASCUS with positive high risk HPV cervical 05/29/2023 Chlamydia 2003,2008,2013 x3 Herpes simplex virus (HSV) infection History of gastric bypass 09/08/2015 Hypoglycemia 08/12/13 Iron deficiency 08/29/2016 Kidney stone Marijuana use Mental disorder RLS (restless legs syndrome) Amezquita Seizure Overdose of Wellbutrin Seizures (HCC) Thrombosed hemorrhoids 2013 PAST SURGICAL HISTORY Procedure Laterality Date DELIVERY ONLY 2002 , low cervical DELIVERY ONLY N/A 04/23/2016 GASTRIC BYPASS HX 04/2011 HEMORRHOIDECTOMY NEUROPLASTY AND/TRANSPOS MEDIAN NRV CARPAL TUNNE Right 02/11/2020 Right carpal tunnel release PAST SURGICAL HISTORY OF kidney stone PAST SURGICAL HISTORY OF 01/2020 bilateral fallopian tubes removed REPAIR FIRST ABDOMINAL WALL HERNIA 04/08/2018 Hernia repair, incisional REVISE MEDIAN N/CARPAL TUNNEL SURG Left 03/11/2020 (more content not included)... Normal [facility] UA DIP, URINE (POC)on 2024 BILIRUBIN UA (POCT) Negative Negative [facility] CLARITY UA (POCT) Clear [facility] COLOR UA (POCT) Yellow [facility] GLUCOSE UA (POCT) Negative Negative mg/dL [facility] Hemoglobin Ql (U) Negative Negative [facility] Interpretation and review of laboratory results Abnormal [facility] KETONE UA (POCT) Negative Negative mg/dL [facility] LEUKOCYTES UA (POCT) Negative Negative [facility] NITRITE UA (POCT) Negative Negative [facility] PH UA (POCT) 6.5 4.5 - 8.0 [facility] Protein Ql (U) Trace Abnormal Negative mg/dL [facility] SPECIFIC GRAVITY UA (POCT) 1.025 1.005 - 1.030 [facility] UROBILINOGEN UA (POCT) 1 Normal E.U./dL [facility] Location:[address], [place], [address] [facility] POINT OF CARE [facility] Orthopedic Visit Reporton Orthopedic Visit Report [facility] [facility] [address] [place] [address] OFFICE VISIT Date of Service: 09/08/24 MR#: [id number] Acct: [id number] Name: CITLALI BECKWITH Rep #: [id number] : 1985 Provider: Dr. Barney Rajan MD Age/Sex: 38/F Location: [facility].JOSSIE Status: Signed Intake Vital Signs 05/05/24 08:22 Height 5 ft 5 in Weight: 204 lb 2 oz BMI 34.0 Intake Visit Reasons: lumbar spine Allergies adhesive tape Allergy (Verified 09/08/24 13:38) Other aspirin Allergy (Verified 09/08/24 13:38) Other bupropion (From Wellbutrin) Allergy (Verified 09/08/24 13:38) Other latex Allergy (Verified 09/08/24 13:38) Hives NSAIDS (Non-Steroidal Anti-Inflamma Allergy (Verified 09/08/24 13:38) Other bupropion HCl (From Wellbutrin) Adverse Reaction (Verified 09/08/24 13:38) Other venlafaxine (From Effexor) Adverse Reaction (Verified 09/08/24 13:38) Upset Stomach Medications ???Medication ???Instructions ???Recorded ???Confirmed ???Type gabapentin 300 mg capsule 900 mg PO QHS 08/16/16 09/08/24 Hi story trazodone 50 mg tablet 50 mg PO QHS 06/22/21 09/08/24 His tory omeprazole 20 mg capsule,delayed 20 mg PO DAILY #14 CAPSULES 09/08/24 Rx release cyanocobalamin (vitamin B-12) 1,000 mcg IM Q4W 05/05/24 09/08/24 History 1,000 mcg/mL injection solution dextroamphetamine sulfate 15 mg mg PO 05/05/24 09/08/24 History capsule,extended release PFSH Medical History Right renal stone Wears glasses Wears contact lenses Restless legs Smoker Ureteral calculus Sleep apnea history of gastric byoass Vitamin D deficiency History of seizures Hypoglycemia Bilateral headaches Carpal tunnel syndrome Anemia Allergies Surgical History History of gastric bypass History of ear surgery History of lithotripsy Hx of carpal tunnel repair S/P tubal ligation History of section Family History Other Cancer Social History Smoking Status: Current every day smoker tobacco type: cigarettes quit status: not considering quitting alcohol intake: never substance use type: does not use what type of physical activity do you participate in: none HPI lumbar spine Details: This documentation accurately reflects the service provided and the decisions made by me, Dr. Barney Rajan MD 09/08/24 2615. Part of today???s visit was documented by Violeta EDUARDO and May Ramsey RN, acting as scribe. CITLALI BECKWIHT is a 38 year old F here today for f/u on lumbar spine to discuss surgery. She denies having any recent injections since her last visit. Her last injection was in April and she reports this was helpful until . She reports working in the yard and garden the day before the pain started. She has not been on oral steroids recently. Since she has been experiencing low back pain that is worse on the left side. The pain does radiate down into her left hip and posterior leg. The pain is interfering with her daily activities and she is not able to garden. She is able to walk the entire grocery store but she does limp She reports standing from a seated position is difficult and she has weakness in her left leg. She feels as though this is affecting her function and quality of life. 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 She denies diabetes, heart or lung problems. She does not take blood thinners. 05/05/24: CITLALI BECKWITH is a 38 year old F here today NEW patient for low back pain that she has been having since the end of December of 2023. She denies any known injury. She does have pain that radiates into her left leg and sometimes extends into her foot. She does have numbness in her calf and the heel of her left foot. She does see Dr. Roth for pain management. She has had an MRI and xrays done at [facility] of her lumbar spine. She states that in March Dr. Blas gave her injection that helped but only for 2 weeks then about 3 weeks ago she has an injection by Dr. Roth that has been seeming to last a little longer. She has been doing PT here at [facility] which seems to be helping some with her pain. She denies taking anything for pain. Ortho Exam General General: Yes no acute distress Neurologic: Yes alert Psychologic: Yes reasonable and appropriate Spine SPINE TESTING CERVICAL THORACIC LUMBAR Musculoskeletal Strength 0=absent - 5=normal Details: Examination the back shows left paraspinal tenderness. Neurologic valuation of lower extremity shows 5 x 5 power normal shows normal sensations in all dermatomes. Passive straight leg raise test (more content not included)... Normal [facility] Bacteria Ur Culton 5 Bacteria identified Cx Nom (U) ORGANISM ID: 1 >=100,000 CFU/ml Escherichia coli ORGANISM ID: 1 (ESCHERICHIA COLI) ANTIBIOTIC INTERPRETATION GLENN STATUS REFERENCE RANGE Ampicillin S 4 F Susceptible <=8 , Intermediate >8 , Resistant >16 Cefazolin S <=4 F Susceptible 0-16 , Intermediate <0 or >16 , Resistant >16 For uncomplicated urinary tract infections, cefazolin results can be used to predict susceptibility or resistance to cephalexin. Ceftriaxone S <=1 F Susceptible <=1 , Intermediate >1 , Resistant >=4 Cefepime S <=1 F Susceptible <=2 , Susceptible-Dose Dependent >2 , Resistant >=16 Ertapenem S <=0.5 F Susceptible <=0.5 , Intermediate >.5 , Resistant >1 Meropenem S <=0.25 F Susceptible <=1 , Intermediate >1 , Resistant >2 Ampicillin/Sulbact S <=2 F Susceptible <=8 , Intermediate >8 , Resistant >16 Piperacillin/Tazobac S <=4 F Susceptible <16 , Susceptible-Dose Dependent >=16 , Resistant >=32 Gentamicin S <=1 F Susceptible <=2 , Intermediate >2 , Resistant >=8 Tobramycin S <=1 F Susceptible <4 , Intermediate >=4 , Resistant >=8 Trimeth sulfameth S <=20 F Susceptible <=40 , Resistant >40 Ciprofloxacin S <=0.25 F Susceptible <0.5 , Intermediate >=.5 , Resistant >=1 Nitrofurantoin S <=16 F Susceptible <=32 , Intermediate >32 , Resistant >64 Abnormal [facility] Comment on above: Performed By: #### 6 - ####[facility] LABCLIA [id number] [address] OF [facility] CNOVon 09-01-2024 CNOV Office Visit (FAMPWS ) -- CITLALI BECKWITH ([id number]) 1985 F Date Time Provider Department 09/01/24 11:40 AM [facility] During your visit today, we recorded the following information about you: Pulse Blood pressure Weight 84/minute 118/78 93.9 kg Marry Paredes APRN.CNP 09/01/2024 12:14 PM Signed This is a 38 year old female who presents today with: Patient presents with: UTI HISTORY OF PRESENT ILLNESS: Citlali Beckwith is a 38 year old female. Patient presents with: UTI Ran out of cephalexin that she uses daily for UTI prevention with history of kidney stones. Burning with urination. No fever or chills. Citlali is a 38-year-old female with a history of recurrent UTIs and nephrolithiasis, presenting for UTI prophylaxis management and back pain. Recurrent UTIs: - History of recurrent UTIs, managed with daily cephalexin. - Ran out of cephalexin; last dose taken on Saturday. - Noted gradual worsening of symptoms since missing doses. - Reports that cephalexin has been less effective over the past year. - Denies fever or chills. - Allergic to Flagyl; tolerates Macrobid. Nephrolithiasis: - History of nephrolithiasis; taking cephalexin for prophylaxis. Back Pain: - Severe back pain; scheduling back surgery next week. - Previously prescribed gabapentin, but prescription . PAST MEDICAL HISTORY: PAST MEDICAL HISTORY Diagnosis Date Anemia ASCUS with positive high risk HPV cervical 05/29/2023 Chlamydia 2004,2008,2013 x3 Herpes simplex virus (HSV) infection History of gastric bypass 09/08/2015 Hypoglycemia 08/12/13 Iron deficiency 08/29/2016 Kidney stone Marijuana use Mental disorder RLS (restless legs syndrome) Amezquita Seizure Overdose of Wellbutrin Seizures (HCC) Thrombosed hemorrhoids 2013 PAST SURGICAL HISTORY Procedure Laterality Date DELIVERY ONLY 2002 , low cervical DELIVERY ONLY N/A 04/23/2016 GASTRIC BYPASS HX 04/2011 HEMORRHOIDECTOMY NEUROPLASTY AND/TRANSPOS MEDIAN NRV CARPAL TUNNE Right 02/11/2020 Right carpal tunnel release PAST SURGICAL HISTORY OF kidney stone PAST SURGICAL HISTORY OF 01/2020 bilateral fallopian tubes removed REPAIR FIRST ABDOMINAL WALL HERNIA 04/08/2018 Hernia repair, incisional REVISE MEDIAN N/CARPAL TUNNEL SURG Left 03/11/2020 ALLERGIES Adhesive Tape (Rosins), Aspirin, Effexor [Venlafaxine], Latex, Nsaids (Non-Steroidal Anti-Inflammatory Drug), and Wellbutrin [Bupropion Hcl] MEDICATIONS Current Outpatient Medications Medication Sig cephALEXin (KEFLEX) 250 mg capsule Take 1 capsule by mouth once daily. fluconazole (DIFLUCAN) 150 mg tablet Take 1 tablet by mouth one time only for 1 dose. clindamycin phosphate 2 % vaginal cream Use 1 applicatorful vaginally daily at bedtime for 7 days. traZODone (DESYREL) 100 mg tablet Take 1 tablet by mouth daily at bedtime. traZODone (DESYREL) 100 mg tablet Take 1 tablet by mouth daily at bedtime for 7 days. dextroamphetamine SR (DEXEDRINE SPANSULE) 15 mg biphasic capsule TAKE 2 CAPSULES BY MOUTH 2 TIMES A DAY (MORNING AND AFTERNOON) gabapentin (NEURONTIN) 300 mg capsule Take 3 capsules by mouth daily at bedtime for 180 days. lansoprazole (PREVACID) 30 mg capsule Take 1 capsule by mouth daily before breakfast. 1/2 hr before meal. cyanocobalamin 1,000 mcg/mL Inject 1 mL intramuscularly once every month. cyanocobalamin 1,000 mcg/mL Inject 1 mL intramuscularly once every month. valACYclovir (VALTREX) 500 mg tablet Take one tablet by mouth once a day. doxycycline hyclate (VIBRAMYCIN) 100 mg capsule Take 1 capsule by mouth two times a day. lidocaine urojet (GLYDO) 2 % jelp Apply 5 mL to affected area three times a day as needed. Acidophilus-Pectin, Soddy-Daisy 25 million cell -100 mg tab Take 1 tablet by mouth every afternoon. Cholecalciferol, Vitamin D3, 25 mcg (1,000 unit) cap Take 1 capsule by mouth once daily. Cholecalciferol, Vitamin D3, 25 mcg (1,000 unit) cap Take 1 capsule by mouth once daily. levonorgestrel (MIRENA) 20 mcg/24 hours (7 yrs) 52 mg IUD 1 Each by INTRAUTERINE route as directed. No current facility-administered medications for this visit. FAMILY HISTORY Problem Relation Age of Onset Alcohol/Drug Father Hypertension Maternal Grandfather CHF Heart Maternal Grandfather [place] Cancer Paternal Grandmother throat cancer Stroke Paternal Grandmother Blood Clots No Family History Clotting Disorder No Family History Anesthesia Problems No Family History Social History Tobacco Use Smoking status: Every Day Current packs/day: 0.50 Average packs/day: 0.5 packs/day for 15.0 years (7.5 ttl pk-yrs) Types: Cigarettes Smokeless tobacco: Never Vaping Use Vaping status: Never Used Substance Use Topics Alcohol use: Yes Comment: social Drug use: No Comment: Hx marijuana use REVIEW OF SYSTEMS Co (more content not included)... Normal [facility] UA DIP, URINE (POC)on 2024 BILIRUBIN UA (POCT) Negative Negative [facility] CLARITY UA (POCT) Slightly Cloudy Cl [facility] COLOR UA (POCT) Yellow [facility] GLUCOSE UA (POCT) Negative Negative mg/dL [facility] Hemoglobin Ql (U) Moderate Abnormal Negative [facility] Interpretation and review of laboratory results Abnormal [facility] KETONE UA (POCT) Negative Negative mg/dL [facility] LEUKOCYTES UA (POCT) Trace Abnormal Negative [facility] NITRITE UA (POCT) Positive Abnormal Negative [facility] PH UA (POCT) 7 4.5 - 8.0 [facility] Protein Ql (U) Negative Negative mg/dL [facility] SPECIFIC GRAVITY UA (POCT) 1.02 1.005 - 1.030 [facility] UROBILINOGEN UA (POCT) 2 Abnormal Normal E.U./dL [facility] Location:[address], [id number] [place] [address] POINT OF CARE [facility] L/S Spine Bending Flex/Jackson 05-05-2024 L/S Spine Bending Flex/Ext [facility] Imaging Services [address] [place] [address] L/S Spine Bending Flex/Ext MR#: [id number] Acct: [id number] Name: CITLALI BECKWITH Rep #: [id number] : 1985 F 38 From: Abilio Tran DO PCP: Dr. Paul Kendrick MD Status: DEP [facility] Study: L/S Spine Bending Flex/Ext Date of Exam: 05/05 Exam# [id number] Ordering Dr: Nupur Canales PROCEDURE: L/S SPINE BENDING FLEX/EXT REASON FOR EXAM: Back pain TECHNIQUE: Flexed, and extended lateral views of the lumbar spine. COMPARISON: None. FINDINGS: Normal lumbar vertebral heights. No acute fractures or dislocations are identified. No malalignment. No abnormal motion. Mild disc space height loss minimal endplate changes seen at the L5-S1 level. Remaining intervertebral disc spaces appear relatively well preserved. Remaining visualized osseous structures appear intact. Intrauterine device is suggested. RAD/L/S Spine Bending Flex/Ext IMPRESSION: 1. No acute lumbar spine fractures or dislocations are identified. 2. No abnormal motion. 3. Mild spondylotic changes involving the L5-S1 level, as described Reading [facility] CC: MARCI Catherine; Dr. Paul Kendrick MD Electrical Estimator: Signed Normal [facility] Orthopedic Visit Reporton Orthopedic Visit Report [facility] [address] [place] [address] OFFICE VISIT Date of Service: 05/05/24 MR#: [id number] Acct: [id number] Name: CITLALI BECKWITH Rep #: [id number] : 1985 Provider: Dr. Barney Rajan MD Age/Sex: 38/F Location: [facility] [facility] Status: Signed Intake Vital Signs 03/03/24 09:13 04/28/24 12:10 05/05/24 08:22 Height 5 ft 5 in 5 ft 5 in 5 ft 5 in Weight: 204 lb 2 oz BMI 34.0 Intake Visit Reasons: LUMBAR SPINE Allergies adhesive tape Allergy (Verified 05/05/24 08:24) Other aspirin Allergy (Verified 05/05/24 08:24) Other bupropion (From Wellbutrin) Allergy (Verified 05/05/24 08:24) Other latex Allergy (Verified 05/05/24 08:24) Hives NSAIDS (Non-Steroidal Anti-Inflamma Allergy (Verified 05/05/24 08:24) Other bupropion HCl (From Wellbutrin) Adverse Reaction (Verified 05/05/24 08:24) Other venlafaxine (From Effexor) Adverse Reaction (Verified 05/05/24 08:24) Upset Stomach Medications ???Medication ???Instructions ???Recorded ???Confirmed ???Type gabapentin 300 mg capsule 900 mg PO QHS 08/16/16 05/05/24 Hi story trazodone 50 mg tablet 50 mg PO QHS 06/22/05/05/24 His tory omeprazole 20 mg capsule,delayed 20 mg PO DAILY #14 CAPSULES Rx release cyanocobalamin (vitamin B-12) 1,000 mcg IM Q4W 05/05/24 05/05/24 History 1,000 mcg/mL injection solution dextroamphetamine sulfate 15 mg mg PO 05/05/24 05/05/24 History capsule,extended release [facility] Medical History Right renal stone Wears glasses Wears contact lenses Restless legs Smoker Ureteral calculus Sleep apnea history of gastric byoass Vitamin D deficiency History of seizures Hypoglycemia Bilateral headaches Carpal tunnel syndrome Anemia Allergies Surgical History History of gastric bypass History of ear surgery History of lithotripsy Hx of carpal tunnel repair S/P tubal ligation History of section Family History Other Cancer Social History Smoking Status: Current every day smoker tobacco type: cigarettes quit status: not considering quitting alcohol intake: never substance use type: does not use what type of physical activity do you participate in: none HPI LUMBAR SPINE Details: This documentation accurately reflects the service provided and the decisions made by me, Dr. Barney Rajan MD 05/05/24 08. Part of today???s visit was documented by Violeta EDUARDO, acting as scribe. CITLALI BECKWITH is a 38 year old F here today NEW patient for low back pain that she has been having since the end of December of 2023. She denies any known injury. She does have pain that radiates into her left leg and sometimes extends into her foot. She does have numbness in her calf and the heel of her left foot. She does see Dr. Roth for pain management. She has had an MRI and xrays done at [facility] of her lumbar spine. She states that in March Dr. Blas gave her injection that helped but only for 2 weeks then about 3 weeks ago she has an injection by Dr. Roth that has been seeming to last a little longer. She has been doing PT here at [facility] which seems to be helping some with her pain. She denies taking anything for pain. Ortho Exam General General: Yes no acute distress Neurologic: Yes alert and Yes oriented x3 Spine SPINE TESTING CERVICAL THORACIC LUMBAR Musculoskeletal Strength 0=absent - 5=normal Details: Examination the back shows left paraspinal tenderness. Neurologic valuation of lower extremity shows 5 x 5 power normal shows normal sensations in all dermatomes. Passive straight leg raise test is positive on the left. Coding Level of Care Code Off vis,new,level 4 Diagnoses Lumbar disc herniation M51.26 Time Spent (min) 45 Assessment and Plan Assessment and Plan (1) Lumbar disc herniation: Status: Acute Orders: Orders L/S Spine Bending Flex/Ext Today M54.50 - Low back pain, unspecified Plan Reviewed x-rays and MRI of the lumbar spine. These show L5-S1 disc height loss with large left paracentral disc herniation causing lateral recess stenosis. No dynamic instability on flexion- extension views. Explained imaging findings in detail. Patient has a large disc herniation causing left S1 radiculopathy. She has had the radicular pain at least since November. She has undergone 2 epidural steroid injections as well as multiple courses of oral steroids along with chiropractic treatment without significant help. She is also been doing physical therapy without much help. She continues to avoid bending forward and has been usin (more content not included)... Normal [facility] Spine Lumbar (Routine)on Spine Lumbar (Routine) [facility] Imaging Services [address] [place] [address] Spine Lumbar (Routine) MR#: [id number] Acct: [id number] Name: CITLALI BECKWITH Rep #: [id number] : 1985 F 38 From: Abilio Sparrow MD PCP: Dr. Paul Kendrick MD Status: REG CLI Study: Spine Lumbar (Routine) Date of Exam: 04/13/24 Exam# [id number] Ordering Dr: Shayne Blas MD [id number] STUDY: MRI LUMBAR SPINE WITHOUT CONTRAST REASON FOR EXAM: Female, 38 years old. RADICULOPATHY, LOW BACK PAIN INTO L LEG TECHNIQUE: Standardized fat and water weighted pulse sequences were obtained in the sagittal and axial planes. COMPARISON: Lumbar spine x-rays March 02, 2024 FINDINGS: T12-L1: Normal endplates. Narrowed disc space with minimal annular bulge. Normal bilateral facet joints. Normal central canal and bilateral lateral recesses. Normal bilateral intervertebral neural foramina. Normal lumbar lordosis. There is no substantial scoliosis. Normal conus medullaris that terminates at T12-L1 L1-2: Normal endplates. Normal disc height, hydration and morphology. Normal bilateral facet joints. Normal central canal and bilateral lateral recesses. Normal bilateral intervertebral neural foramina. L2-3: Normal endplates. Normal disc height, hydration and morphology. Normal bilateral facet joints. Normal central canal and bilateral lateral recesses. Normal bilateral intervertebral neural foramina. L3-4: Normal endplates. Normal disc height, hydration and morphology. Normal bilateral facet joints. Normal central canal and bilateral lateral recesses. Normal bilateral intervertebral neural foramina. L4-5: Normal endplates. Normal disc height, hydration and morphology. Normal bilateral facet joints. Normal central canal and bilateral lateral recesses. Normal bilateral intervertebral neural foramina. L5-S1: Normal endplates. Normal disc height, desiccation and minor annular bulge with large broad-based left paracentral/posterolateral disc extrusion with posterior and inferior migration as well as mild superior migration of disc fragment. Normal bilateral facet joints. There is minor narrowing of the central canal but severe left recess and subarticular stenosis with compression of the thecal sac which is mildly displaced posteriorly towards the right as well as displacement and compression of the descending S1 nerve root. Normal visualized sacral ala. Normal visualized paraspinous soft tissue structures. No significant change since prior exam given inherent differences in imaging modalities MRI/Spine Lumbar (Routine) IMPRESSION: No acute fracture or other significant bony pathology. Severe spinal stenosis on the left at L5-S1 with compression and displacement of the thecal sac as well as the descending left S1 nerve root secondary to large broad-based left paracentral/posterolateral disc extrusion Electronically Signed: Abilio Sparrow MD at 16:11 EST , CC: Dr. Shayne Blas MD; Dr. Paul Kendrick MD Electrical Estimator: Signed Normal [facility] Inital Evaluation (1) - PTon 04-10-2024 Inital Evaluation (1) - PT [facility] Physical Therapy [facility] [address] [place] [address] / REHABILITATION SERVICES INITIAL EVALUATION MR#: [id number] Acct: [id number] Name: CITLALI BECKWITH Rep #: [id number] : 1985 38 From: Ambrose Calixto PT, ATC Referring Dr.: Dr. Shayne Blas MD Status: REG RCR Insurance: [employer] SELF PAY INSURANCE Patient's Visit Information Visit Information Visit Information: CITLALI BECKWITH is a 38 year old F referred to Physical Therapy by Dr. Shayne Blas MD with a diagnosis of LBP with L LE radiculopathy. Date of Evaluation: 04/09/24 Physical Therapist: Ambrose Calixto, PT, ATC Visit Plan Frequency: 2x /Week Duration: 2 Weeks Plan: Postural edu, REIL, core stab ex's, body mechanics, and HEP Subjective Subjective: Pt reports she has had LBP for 4 months. Pt reports she has been in severe pain, as the pain has progressively worsened over this time span. Pt reports she has had x-rays, pain injections, and care transitions nurse recently which has not given her any relief. Pt reports her pain is severe in nature, and notes her pain radiates down her L LE all the way to her foot. Pt notes her L foot is numb today. Pt notes she continues to have sleep difficulty secondary to pain. Pt works for the formerly [employer] in a building with 3 floors, which requires her to negotiate stairs throughout the day. Pt reports she has to negotiate them one step at a time. No PMHx of LBP. Pt reports her LBP had an insidious onset in nature. Pain LBP: Pain Intensity (Out of 10): 0 Pain Intensity Range: 10 L LE pain: Pain Intensity (Out of 10): 10 Pain Intensity Range: 10 Objective Objective: Neuro: B LE sensation is WNL to light touch MMT: L hip flexion and knee flex= 4-/5. All other B LE MMT 5/5 throughout ROM: Pt is limited in all planes this date Repeated movements: Prone prop 1 min x 2 decreased pain, REIL 10x2 abolished L LE radiculopathy Balance/Special Test Scores Oswestry Low Back Score: 36 Goals Goal 1:: Decrease LBP x 50% to aid with sleep Goal Time Frame: 2-4 Weeks Goal 2:: Decrease the frequency and intensity of L LE radiculopathy x 50% to aid with ambulation Goal Time Frame: 2-4 Weeks Goal 3:: I with HEP Goal Time Frame: 2-4 Weeks Rehabilitation Potential Physical Therapy Diagnosis: Pt has LBP, L LE radiculopathy, and difficulty with ambulation secondary to L/S disc derrangement Rehabilitation Potential: Good Anticipated Interventions Patient/Client Instruction: Educate patient on: Condition and Plan of Care For the Purpose of:: To improve self management Therapeutic Exercise to Include: Strength training, Body mechanics, Postural training, Dynamic Lumbar Stabilization and Shyla Exercises For the Purpose of:: To decrease pain, To increase ROM and To improve muscle performance and motor function Text: Thank you for the opportunity to evaluate your patient. For Medicare and Medicare HMO plans, please review the plan of care and approve it. It will need to be FAXED BACK to us at [phone] for Medicare purposes. For Medicare only, by signing this I certify the plan of care. Please let me know if there are questions or concerns regarding this plan of care. Physician Signature: Date: 04/10/24 0703 CC: Dr. Shayne Blas MD; Dr. Paul Kendrick MD [facility] Signed [facility] CITLALI BECKWITH ([id number]) 1985 F Date Time Provider Department 03/04/24 PAUL KENDRICK During your visit today, we recorded the following information about you: Gina Kim RN 03/04/2024 11:11 AM Signed Patient calls to request referral to pain management, demographics, and x-ray results be faxed to Dr. Roth. Faxed per request to [phone]. Gina Kim RN Allergies As of Date: 03/04/2024 Noted Allergy Reaction ADHESIVE TAPE (ROSINS) 08/14/2013 2 - Rash ASPIRIN 08/14/2013 Comments: Unable to take aspirin after having gastric bypass surgery EFFEXOR (VENLAFAXINE) 05/01/2017 14 - Other: See Comments Comments: Dry heaves, shaking uncotrollable LATEX 07/09/2007 2 - Rash NSAIDS (NON-STEROIDAL ANTI-INFLAM*07/05/2014 Comments: due to gastric bypass WELLBUTRIN (BUPROPION HCL) 11/28/2006 14 - Other: See Comments Comments: Seizure-was on overdose. Has taken it since then and done fine. Date Reviewed: 01/13/2024 Reviewed by: Marry Paredes APRN.CERTIFIED CODING SPECIALIST - Fully Assessed Reason for Visit: Consult [502] Prescriptions as of 03/04/2024 - dextroamphetamine SR (DEXEDRINE SPANSULE) 15 mg biphasic capsule TAKE 2 CAPSULES BY MOUTH 2 TIMES A DAY (MORNING AND AFTERNOON) - gabapentin (NEURONTIN) 300 mg capsule Take 3 capsules by mouth daily at bedtime for 180 days. - lansoprazole (PREVACID) 30 mg capsule Take 1 capsule by mouth daily before breakfast. 1/2 hr before meal. - traZODone (DESYREL) 100 mg tablet Take 1 tablet by mouth daily at bedtime. - cyanocobalamin 1,000 mcg/mL Inject 1 mL intramuscularly once every month. - cyanocobalamin 1,000 mcg/mL Inject 1 mL intramuscularly once every month. - valACYclovir (VALTREX) 500 mg tablet Take one tablet by mouth once a day. - doxycycline hyclate (VIBRAMYCIN) 100 mg capsule Take 1 capsule by mouth two times a day. - lidocaine urojet (GLYDO) 2 % jelp Apply 5 mL to affected area three times a day as needed. - cephALEXin (KEFLEX) 250 mg capsule TAKE ONE TABLET BY MOUTH AT BEDTIME FOR 90 DAYS, THEN AFTER intercourse - Acidophilus-Pectin, Soddy-Daisy 25 million cell -100 mg tab Take 1 tablet by mouth every afternoon. - Cholecalciferol, Vitamin D3, 25 mcg (1,000 unit) cap Take 1 capsule by mouth once daily. - Cholecalciferol, Vitamin D3, 25 mcg (1,000 unit) cap Take 1 capsule by mouth once daily. - levonorgestrel (MIRENA) 20 mcg/24 hours (7 yrs) 52 mg IUD 1 Each by INTRAUTERINE route as directed. Problem List As Of Date 03/04/2024 Noted Resolved ADJUSTMENT REACTION NOS [F43.20] 12/19/2006 07/14/2007 Seborrheic dermatitis, unspecified [L21.9] 06/12/2007 08/29/2016 Attention deficit disorder [F98.8] 07/14/2007 08/29/2016 Adjustment disorder with depressed mood [F43.21]07/14/2007 08/29/2016 Tobacco use [Z72.0] 08/26/2007 Routine general medical examination at [facility]*06/30/2009 09/13/2015 Class: Chronic Routine gynecological examination [Z01.419] 06/30/2009 09/13/2015 Class: Chronic Morbid obesity (HCC) [E66.01] 06/30/2009 09/13/2015 Insomnia [G47.00] 06/30/2009 09/13/2015 Thrombosed external hemorrhoid [K64.5] 08/14/2013 09/13/2015 Recurrent UTI (urinary tract infection) complic*07/22/2014 08/29/2016 Kidney stones [N20.0] 07/22/2014 09/13/2015 Marijuana abuse [F12.10] 04/27/2015 08/29/2016 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] 09/08/2015 12/04/2019 History of delivery, currently pregnan*09/08/2015 05/07/2016 History of recurrent UTI (urinary tract infecti*09/08/2015 History of herpes genitalis [Z86.19] 09/08/2015 History of depression [Z86.59] 09/08/2015 Tobacco use in [O99.330] 09/08/2015 08/29/2016 History of marijuana use [F12.91] 09/08/2015 H/O macrosomia in in prior , cu*09/08/2015 08/29/2016 Patient requested diagnostic testing [Z01.89] 09/08/2015 11/21/2015 History of kidney stones [Z87.442] 09/08/2015 09/13/2015 Trichomonal vaginitis during in secon*11/28/2015 08/29/2016 Urgency of urination [R39.15] 01/19/2016 08/29/2016 Frequency of micturition [R35.0] 01/19/2016 08/29/2016 UTI (urinary tract infection) in , ant*02/16/2016 02/16/2016 RLS (restless legs syndrome) [G25.81] 08/29/2016 Iron deficiency [E61.1] 08/29/2016 12/04/2019 Anemia due to vitamin B12 deficiency [D51.9] 08/29/2016 Anemia [D64.9] 08/07/2017 Cervical high risk HPV (human papillomavirus) t*08/06/2018 FLOR (obstructive sleep apnea) [G47.33] 10/28/2019 Seizures (HCC) [R56.9] 03/09/2020 History of Angelika-en-Y gastric bypass [Z98.84] 03/09/2020 Vitamin D deficiency [E55.9] 07/12/2021 Folic acid deficiency (non anemic) [E53.8] 07/13/2021 GERD without esophagitis [K21.9] 10/03/2021 Carpal tunnel syndrome [G56.00] 04/04/2022 Hyperbilirubinemia [E80.6] 04/04/2022 ASCUS with positive high risk HPV cervical [R87*05/29/2023 Encount (more content not included)... Normal [facility] Bilirubin Test strip Ql (U)O rdered By: Virginia Peter on 03-03-2024 Bilirubin Ql (U) 1 mg/dL High Negative [facility] Comment on above: COLOR OF URINE MAY A FFECT DIPSTICK RESULTS. Calcium oxalate crystals LM Ql (Urine sed)Ordered By: Virginia Peter on 03-03-2024 Urine Calcium Oxalate Crystals 1+ /hpf [facility] Emergency Department Summary on 03-03-2024 Emergency Department Summary [facility] Medical Records Department [address] [place] [address] Emergency Department Summary 03/03/24 MR#: [id number] Acct: [id number] Name: CITLALI BECKWITH Rep #: [id number] : 1985 38 From: Virginia Peter DO PCP: Dr. Paul Kendrick MD Status:DEP ER Location: ED HPI History of Present Illness Chief Complaint: Back Informant: patient Narrative Narrative: Patient is a 38-year-old female with history of kidney stones, gastric bypass, seizure disorder presenting for worsening back pain. Patient states that about 2 and half months ago she thought she maybe pulled a muscle in her left butt cheek. She been dealing with that pain however it became unbearable about 2 and half weeks ago. She saw a chiropractor who told her that she had muscle spasms and a ruptured disc in her back. She states that she has been having severe pain since yesterday. She notes that she had outpatient x-ray ordered yesterday. She tells me the past 2 and half weeks she does not feel it she has had much control of her bladder. She denies any incontinence but states that she has to really push to urinate. She denies any saddle anesthesia. She does feel that she has decrease in station her left calf and she states just be careful when shaving her legs. She notes that she has been taking ibuprofen with only minimal relief of the pain but she is not supposed to take NSAIDs because of her history of gastric bypass. Denies any trauma or injuries. Does not feel that she is dragging her legs. Says she has a hard time getting comfortable. Movement makes it worse. States the pain in her back is over her tailbone. [facility] Medical History Right renal stone Wears glasses Wears contact lenses Restless legs Smoker Ureteral calculus Sleep apnea history of gastric byoass Vitamin D deficiency History of seizures Hypoglycemia Bilateral headaches Carpal tunnel syndrome Anemia Allergies Home Medications ???Medication ???Instructions ???Recorded ???Last Taken ???Type gabapentin 300 mg capsule 900 mg PO QHS 08/16/16 Unknown History lisdexamfetamine 20 mg capsule 60 mg PO DAILY 10/18/20 Unknown History (Vyvanse) ondansetron 4 mg disintegrating 4 mg PO Q8H PRN nausea and 06/22/21 Unknown Rx tablet vomiting #10 tabs trazodone 50 mg tablet 50 mg PO QHS 06/22/21 Unknown History ergocalciferol (vitamin D2) 1,250 50,000 mcg PO QWEEK 09/07/21 Unknown History mcg (50,000 unit) capsule (Vitamin D2) folic acid 1 mg tablet 1 mg PO DAILY 09/07/21 Unknown History vitamin B complex 1 ea QMONTH 09/07/21 Unknown History ondansetron HCl 8 mg tablet 8 mg PO Q8H PRN PRN Nausea 7 days 09/14/21 Unknown Rx #20 TABLETS oxycodone-acetaminophen 5 mg-325 2 tab PO Q8H PRN PRN Pain 7 days 09/14/21 Unknown Rx mg tablet #20 tabs omeprazole 20 mg capsule,delayed 20 mg PO DAILY #14 CAPSULES 03/03/24 Unknown Rx release ondansetron 4 mg disintegrating 4 mg PO Q8H PRN PRN Nausea #20 tabs 03/03/24 Unknown Rx tablet oxycodone-acetaminophen 5 mg-325 1 tab PO Q6H PRN pain 3 days #12 03/03/24 Unknown Rx mg tablet (Percocet) tabs prednisone 20 mg tablet 40 mg (2 x 20 mg) PO DAILY #10 tabs 03/03/24 Unknown Rx Allergy/AdvReac Type Severity Reaction Status Date / Time adhesive tape Allergy Other Verified 03/03/24 09:15 aspirin Allergy Other Verified 03/03/24 09:15 bupropion (From Wellbutrin) Allergy Other Verified 03/03/24 09:15 latex Allergy Hives Verified 03/03/24 09:15 NSAIDS (Non-Steroidal Allergy Other Verified 03/03/24 09:15 Anti-Inflamma bupropion HCl (From AdvReac Other Verified 03/03/24 09:15 Wellbutrin) venlafaxine (From Effexor) AdvReac Upset Verified 03/03/24 09:15 Stomach Family History Other Cancer Surgical History History of gastric bypass History of ear surgery History of lithotripsy Hx of carpal tunnel repair S/P tubal ligation History of section Social History Smoking Status: Current every day smoker tobacco type: cigarettes quit status: not considering quitting alcohol intake: never substance use type: does not use what type of physical activity do you participate in: none ROS ROS ED Constitutional Constitutional ED: Denies chills or fever(s) Respiratory/Chest Respiratory/Chest: Denies dyspnea Gastrointestinal Gastrointestinal: Denies abdominal pain, nausea or vomiting Genitourinary Genitourinary ED: Denies dysuria, hematuria or urinary frequency Musculoskeletal Musculoskeletal: Reports back pain Integumentary Denies rash Neurologic Neurologic: Reports paresthesias LLE Psychiatric (more content not included)... Normal [facility] Epithelial cells.squamous LM Ql (Urine sed)Ordered By: Virginia Peter on 03-03-2024 Epithelial cells.squamous LM.HPF (Urine sed) [#/Area] 5 /[HPF] 5-10 [facility] Glucose Ql (U)Ordered By: Ronald Peter on 03-03-2024 Urine Glucose (UA) Normal mg/dl Normal [facility] Ketones Test strip Ql (U)Ord ered By: Virginia Peter on 03-03-2024 Ketones Ql (U) Negative Negative [facility] Microscopic analysis of urin e for red blood cells (RBC)Ordered By: Virginia Peter on 03-03-2024 Urine RBC 0-5 SEEN /hpf 0-5 [facility] Mucus LM Ql (Urine sed)Order ed By: Virginia Peter on 03-03-2024 Mucus Ql (Urine sed) 0 SEEN /hpf [facility] Nitrite Test strip Ql (U)Ord ered By: Virginia Peter on 03-03-2024 Nitrite Ql (U) Negative Negative [facility] ,Urineon 03-03-2024 Beta HCG ( test) Ql (U) Negative Normal [facility] Comment on above: Order Comment: NENITA TYSONOR TO SPECIFY Result Comment: Very dilute urine specimens, as indicated by a low specific gravity, may not contain financial services sales representative levels of hCG. If is still suspected, a first morning urine specimen should be collected 48 hours later and tested. Performed By: #### L 400.7600, L400.0001 ####[facility] [address] [place], [address] Protein Test strip Ql (U)Ord ered By: Virginia Peter on 03-03-2024 Protein Ql (U) 30 mg/dl High Negative [facility] Urinalysis, Completeon 03-03 BACTERIA 2+ /hpf Normal None Seen [facility] Comment on above: Order Comment: NENITA TYSONOR TO SPECIFY Performed By: #### L 400.7600, L400.0001 ####[facility] [address] [place], [address] CA OX CRYSTAL 1+ /hpf Normal [facility] Comment on above: Order Comment: NENITA TYSONOR TO SPECIFY Performed By: #### L 400.7600, L400.0001 ####[facility] [address] [place], [address] EPI,SQUAMOUS 5-10 SEEN Normal 5-10 [facility] Comment on above: Order Comment: NENITA CTOR TO SPECIFY Performed By: #### L 400.7600, L400.0001 ####[facility] [address] [place], [address] RBC 0-5 SEEN Normal 0-5 [facility] Comment on above: Order Comment: NENITA CTOR TO SPECIFY Performed By: #### L 400.7600, [id number] ####[facility] [address] [place], [address] WBC 0-5 SEEN Normal 0-5 [facility] Comment on above: Order Comment: NENITA CTOR TO SPECIFY Performed By: #### L 400.7600, L400.0001 ####[facility] [address] [place], [address] Mucus Ql (Urine sed) 0 SEEN Normal [facility] Comment on above: Order Comment: NENITA CTOR TO SPECIFY Performed By: #### L 400.7600, L400.0001 ####[facility] [address] [place], [address] Urine blood detectionOrdered By: Virginia Peter on 03-03-2024 Urine Occult Blood 50 /ul High Negative [facility] Urine clarityOrdered By: Linsey Peter on 03-03-2024 Clarity (U) Sl. Cloudy Clear [facility] Urine color determinationOrd ered By: Virginia Peter on 03-03-2024 Color (U) Yellow Yellow [facility] Urine leukocyte esterase det ection by dipstickOrdered By: Virginia Peter on 03-03-2024 Leukocyte esterase Test strip Ql (U) 25 /ul High Negative [facility] Urine pHOrdered By: Virginia forrest on 03-03-2024 pH (U) 6.0 [pH] 5.0 - 8.0 [facility] Urine testOrdered By: Virginia Peter on 03-03-2024 HCG ( test) Ql (U) Negative [facility] Comment on above: Very dilute urine sp ecimens, as indicated by a low specificgravity, may not contain financial services sales representative levels of hCG. If is still suspected, a first morning urinespecimen should be collected 48 hours later and tested. Urine sediment bacteria coun t by microscopy (number/high power field)Ordered By: Virginia Peter on 03-03-2024 Bacteria LM.HPF (Urine sed) [#/Area] 2 /[HPF] None Seen [facility] Urine specific gravity measu rementOrdered By: Virginia Peter on 03-03-2024 Specific gravity (U) [Rel density] 1.020 1.002-1.030 [facility] Urobilinogen Ql (U)Ordered B y: Virginia Peter on 03-03-2024 Urobilinogen (U) [Mass/Vol] 4 mg/dL High Normal [facility] White blood cell countOrdere d By: Virginia Peter on 03-03-2024 Urine WBC 0-5 SEEN /hpf 0-5 [facility] CNPNon 03-02-2024 CNPN Telephone (FAMPWS) -- CITLALI BECKWITH ([id number]) 1985 F Date Time Provider Department 03/02/24 PAUL KENDRICK [facility] During your visit today, we recorded the following information about you: Mirian Campbell LPN 03/02/2024 12:00 PM Signed Citlali calling with complaints of a shifted pelvis. Complains of pain in left buttocks that radiates down her thigh into calf and causes foot to be numb. Denies any incontinence in bowel or bladder. Has been seeing the chiropractor with no relief in the pain. Rates pain 10:10 currently. Pain started about 2 months ago and has worsened in the last 3 weeks. Did see a nurse at her work who gave her prednisone 40mg daily for 10 days but this was not effective at all. Denies any injury. Had x-ray completed today at [facility] but not resulted yet. Is asking about a cortisone injection? Is aware may need to see ortho for injection and she had seen Dr. Coronado in the past. Is not able to afford multiply co-payments and declined an appointment with PCP at this time. Paul Kendrick MD 03/02/2024 12:11 PM Signed Usually injections like that involve seeing someone like pain management, not ortho. What she describes actually sounds like spine. Hard to decide without one of us seeing her. Sometimes do physical therapy also. Likely needs seen Liliana Smith, CARINA 03/02/2024 1:00 PM Signed Pt called and is notified of providers message and instructions. Pt voices understanding. She states she has been to the chiropractor and they told her she has two ruptured discs. Pt states she doesn't have enough money to keep seeing doctors when I asked if she would like me to make her an appointment. She states I would have to have an appointment with them and that would be a co-pay, then they would refer me to a specialist and that co-pay would be double. Pt states she will wait for the results from the x-rays from [facility]. CARINA Dhaliwal Lisa, MA 03/03/2024 8:42 AM Signed X-ray scanned in for review Nicole Duff MA March 03, 2024 8:27 AM Paul Kendrick MD 03/03/2024 11:04 AM Signed Xray shows some degenerative changes. I can refer her to pain management or spine med. Let me know if interested. Meche Walsh MA 03/03/2024 1:53 PM Signed Patient was notified and will do pain management please file order Meche Walsh MA Allergies As of Date: 03/02/2024 Noted Allergy Reaction ADHESIVE TAPE (ROSINS) 08/14/2013 2 - Rash ASPIRIN 08/14/2013 Comments: Unable to take aspirin after having gastric bypass surgery EFFEXOR (VENLAFAXINE) 05/01/2017 14 - Other: See Comments Comments: Dry heaves, shaking uncotrollable LATEX 07/09/2007 2 - Rash NSAIDS (NON-STEROIDAL ANTI-INFLAM*07/05/2014 Comments: due to gastric bypass WELLBUTRIN (BUPROPION HCL) 11/28/2006 14 - Other: See Comments Comments: Seizure-was on overdose. Has taken it since then and done fine. Date Reviewed: 01/13/2024 Reviewed by: Marry Paredes APRN.CERTIFIED CODING SPECIALIST - Fully Assessed Reason for Visit: Back Pain [12] Primary Visit Diagnosis:Lumbar radiculopathy [M54.16] Order(s):CONSULT TO PAIN MGT [668805] Order #: [id number]: 1 FUTURE Prescriptions as of 03/05/2024 - dextroamphetamine SR (DEXEDRINE SPANSULE) 15 mg biphasic capsule TAKE 2 CAPSULES BY MOUTH 2 TIMES A DAY (MORNING AND AFTERNOON) - gabapentin (NEURONTIN) 300 mg capsule Take 3 capsules by mouth daily at bedtime for 180 days. - lansoprazole (PREVACID) 30 mg capsule Take 1 capsule by mouth daily before breakfast. 1/2 hr before meal. - traZODone (DESYREL) 100 mg tablet Take 1 tablet by mouth daily at bedtime. - cyanocobalamin 1,000 mcg/mL Inject 1 mL intramuscularly once every month. - cyanocobalamin 1,000 mcg/mL Inject 1 mL intramuscularly once every month. - valACYclovir (VALTREX) 500 mg tablet Take one tablet by mouth once a day. - doxycycline hyclate (VIBRAMYCIN) 100 mg capsule Take 1 capsule by mouth two times a day. - lidocaine urojet (GLYDO) 2 % jelp Apply 5 mL to affected area three times a day as needed. - cephALEXin (KEFLEX) 250 mg capsule TAKE ONE TABLET BY MOUTH AT BEDTIME FOR 90 DAYS, THEN AFTER intercourse - Acidophilus-Pectin, Soddy-Daisy 25 million cell -100 mg tab Take 1 tablet by mouth every afternoon. - Cholecalciferol, Vitamin D3, 25 mcg (1,000 unit) cap Take 1 capsule by mouth once daily. - Cholecalciferol, Vitamin D3, 25 mcg (1,000 unit) cap Take 1 capsule by mouth once daily. - levonorgestrel (MIRENA) 20 mcg/24 hours (7 yrs) 52 mg IUD 1 Each by INTRAUTERINE route as directed. Problem List As Of Date 03/02/2024 Noted Resolved ADJUSTMENT REACTION NOS [F43.20] 12/19/2006 07/14/2007 Seborrheic dermatitis, unspecified [L21.9] 06/12/2007 08/29/2016 Attention deficit disorder [F98.8] 07/14/2007 08/29/2016 Adjustment disorder with depressed mood [F43.21]07/14/2007 08/29/2016 Tobacco use [Z72.0] 08/26/2007 Routine (more content not included)... Normal [facility] Lumbar Spine 2 or 3 Viewson 03-02-2024 Lumbar Spine 2 or 3 Views [facility] [address] [place] [address] Lumbar Spine 2 or 3 Views MR#: [id number] Acct: [id number] Name: CITLALI BECKWITH Rep #: [id number] : 1985 F 38 From: Jace Raines MD PCP: Dr. Paul Kendrick MD Status: REG CLI Study: Lumbar Spine 2 or 3 Views Date of Exam: Exam# [id number] Ordering Dr: Sav Montes D.C. [id number] EXAM: XR LUMBOSACRAL SPINE, 2 OR 3 VIEWS CLINICAL INDICATION: LUMBAR RADIOPATHY TECHNIQUE: Frontal and lateral views of the lumbar spine and sacrum. COMPARISON: No relevant prior studies available. FINDINGS: VERTEBRAE: Unremarkable. Preserved vertebral body height. No fracture. No spondylolisthesis. Preservation of the normal lumbar lordosis. No significant facet arthropathy. DISC SPACES: There is mild disc space narrowing at L5-S1. GASTROINTESTINAL TRACT: Unremarkable as visualized. Included bowel gas pattern is non-obstructive. RAD/Lumbar Spine 2 or 3 Views IMPRESSION: Mild degenerative changes with disc space narrowing at L5-S1. There are no acute osseous abnormalities. Electronically Signed: Jace Raines MD at 0:13 EST , CC: GARCIA Montes; Dr. Paul Kendrick MD Electrical Estimator: Signed [facility] 01-15-2024 [facility] Telephone (FAMPWS) -- CITLALI BECKWITH ([id number]) 1985 F Date Time Provider Department 01/15/24 [facility] During your visit today, we recorded the following information about you: Meche Walsh MA 01/15/2024 11:46 AM Signed Received PA request from pharmacy for lansoprazole submitted through covermymeds Méndez:[id number] JAMIE Morel Elizabeth, MA 01/15/2024 1:51 PM Signed PA approved till 01/25 Patient notified Allergies As of Date: 01/15/2024 Noted Allergy Reaction ADHESIVE TAPE (ROSINS) 08/14/2013 2 - Rash ASPIRIN 08/14/2013 Comments: Unable to take aspirin after having gastric bypass surgery EFFEXOR (VENLAFAXINE) 05/01/2017 14 - Other: See Comments Comments: Dry heaves, shaking uncotrollable LATEX 07/09/2007 2 - Rash NSAIDS (NON-STEROIDAL ANTI-INFLAM*07/05/2014 Comments: due to gastric bypass WELLBUTRIN (BUPROPION HCL) 11/28/2006 14 - Other: See Comments Comments: Seizure-was on overdose. Has taken it since then and done fine. Date Reviewed: 01/13/2024 Reviewed by: Marry Paredes APRN.CERTIFIED CODING SPECIALIST - Fully Assessed Reason for Visit: Insurance Authorization [[id number]] Cmt: lansoprazole Prescriptions as of 01/15/2024 - dextroamphetamine SR (DEXEDRINE SPANSULE) 15 mg biphasic capsule TAKE 2 CAPSULES BY MOUTH 2 TIMES A DAY (MORNING AND AFTERNOON) - gabapentin (NEURONTIN) 300 mg capsule Take 3 capsules by mouth daily at bedtime for 180 days. - lansoprazole (PREVACID) 30 mg capsule Take 1 capsule by mouth daily before breakfast. 1/2 hr before meal. - traZODone (DESYREL) 100 mg tablet Take 1 tablet by mouth daily at bedtime. - cyanocobalamin 1,000 mcg/mL Inject 1 mL intramuscularly once every month. - cyanocobalamin 1,000 mcg/mL Inject 1 mL intramuscularly once every month. - valACYclovir (VALTREX) 500 mg tablet Take one tablet by mouth once a day. - doxycycline hyclate (VIBRAMYCIN) 100 mg capsule Take 1 capsule by mouth two times a day. - lidocaine urojet (GLYDO) 2 % jelp Apply 5 mL to affected area three times a day as needed. - cephALEXin (KEFLEX) 250 mg capsule TAKE ONE TABLET BY MOUTH AT BEDTIME FOR 90 DAYS, THEN AFTER intercourse - Acidophilus-Pectin, Soddy-Daisy 25 million cell -100 mg tab Take 1 tablet by mouth every afternoon. - Cholecalciferol, Vitamin D3, 25 mcg (1,000 unit) cap Take 1 capsule by mouth once daily. - Cholecalciferol, Vitamin D3, 25 mcg (1,000 unit) cap Take 1 capsule by mouth once daily. - levonorgestrel (MIRENA) 20 mcg/24 hours (7 yrs) 52 mg IUD 1 Each by INTRAUTERINE route as directed. Problem List As Of Date 01/15/2024 Noted Resolved ADJUSTMENT REACTION NOS [F43.20] 12/19/2006 07/14/2007 Seborrheic dermatitis, unspecified [L21.9] 06/12/2007 08/29/2016 Attention deficit disorder [F98.8] 07/14/2007 08/29/2016 Adjustment disorder with depressed mood [F43.21]07/14/2007 08/29/2016 Tobacco use [Z72.0] 08/26/2007 Routine general medical examination at [facility]*06/30/2009 09/13/2015 Class: Chronic Routine gynecological examination [Z01.419] 06/30/2009 09/13/2015 Class: Chronic Morbid obesity (HCC) [E66.01] 06/30/2009 09/13/2015 Insomnia [G47.00] 06/30/2009 09/13/2015 Thrombosed external hemorrhoid [K64.5] 08/14/2013 09/13/2015 Recurrent UTI (urinary tract infection) complic*07/22/2014 08/29/2016 Kidney stones [N20.0] 07/22/2014 09/13/2015 Marijuana abuse [F12.10] 04/27/2015 08/29/2016 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] 09/08/2015 12/04/2019 History of delivery, currently pregnan*09/08/2015 05/07/2016 History of recurrent UTI (urinary tract infecti*09/08/2015 History of herpes genitalis [Z86.19] 09/08/2015 History of depression [Z86.59] 09/08/2015 Tobacco use in [O99.330] 09/08/2015 08/29/2016 History of marijuana use [F12.91] 09/08/2015 H/O macrosomia in in prior , cu*09/08/2015 08/29/2016 Patient requested diagnostic testing [Z01.89] 09/08/2015 11/21/2015 History of kidney stones [Z87.442] 09/08/2015 09/13/2015 Trichomonal vaginitis during in secon*11/28/2015 08/29/2016 Urgency of urination [R39.15] 01/19/2016 08/29/2016 Frequency of micturition [R35.0] 01/19/2016 08/29/2016 UTI (urinary tract infection) in , ant*02/16/2016 02/16/2016 RLS (restless legs syndrome) [G25.81] 08/29/2016 Iron deficiency [E61.1] 08/29/2016 12/04/2019 Anemia due to vitamin B12 deficiency [D51.9] 08/29/2016 Anemia [D64.9] 08/07/2017 Cervical high risk HPV (human papillomavirus) t*08/06/2018 FLOR (obstructive sleep apnea) [G47.33] 10/28/2019 Seizures (HCC) [R56.9] 03/09/2020 History of Angelika-en-Y gastric bypass [Z98.84] 03/09/2020 Vitamin D deficiency [E55.9] 07/12/2021 Folic acid deficiency (non anemic) [E53.8] 07/13/2021 GERD without esophagitis [K21.9] 10/03/2021 Carpal tunnel syndrome [G56.00] 04/04/2022 Hyperbilirubinemia [E80.6] 04/04/2022 ASCUS with positiv (more content not included)... Normal [facility] CNOVon 01-13-2024 CNOV Office Visit (FAMPWS ) -- CITLALI BECKWITH ([id number]) 1985 F Date Time Provider Department 01/13/24 3:40 PM MARRY PAREDES During your visit today, we recorded the following information about you: Pulse Respiration Blood pressure Weight 71/minute 16/minute 120/76 91.2 kg Marry Paredes APRN.CERTIFIED CODING SPECIALIST 01/13/2024 4:30 PM Signed Chief Reason For Appointment Patient presents with: Yearly Exam Citlali Beckwith is a 38 year old female who presents for annual exam. Last office visit date: 10/03/2022 Accompanied By self only Have you had any critical events, hospital stays, ER visits, surgeries or procedures since your last visit here in our office: No Specialists/Other Healthcare Providers Seen: Patient Care Team: Paul Kendrick MD as PCP - General (Family Medicine) Concerns today: None HPI Hasn't slept well since 2018 Active Problems ACTIVE PROBLEM LIST Ascus With Positive High Risk Hpv Cervical - 05/29/2023 Comment: 2023. Colpo ordered. Carpal Tunnel Syndrome - 04/04/2022 Hyperbilirubinemia - 04/04/2022 Gerd Without Esophagitis - 10/03/2021 Folic Acid Deficiency (Non Anemic) - 07/13/2021 Vitamin D Deficiency - 07/12/2021 Seizures (Hcc) - 03/09/2020 History of Angelika-En-Y Gastric Bypass - 03/09/2020 Flor (Obstructive Sleep Apnea) - 10/28/2019 Comment: Not treating. Cervical High Risk Hpv (Human Papillomavirus) Test Positive - 08/06/2018 Comment: 07/29/18-Pap smear negative. HPV HR type positive. Repeat co-testing in one year. Benita Scott APRN.CNM Anemia - 08/07/2017 Comment: Added automatically from request for surgery [id number] Rls (Restless Legs Syndrome) - 08/29/2016 Anemia Due to Vitamin B12 Deficiency - 08/29/2016 History of Recurrent Uti (Urinary Tract Infection) - 09/08/2015 Comment: 09/08/2015Pt has a history of recurrent UTI.Sees Dr Rushing. Discussed importance of reporting the onset of any symptoms of a UTI should it occur during .TKRN September 22, 2015 Klebsiella bacturia, treated w/ keflex. Carlie Campbell MD History of Herpes Genitalis - 09/08/2015 Comment: 10/13/15 Outbreak reported. Rx Valtex sent and will continue suppressive therapy. 09/08/2015Pt has a history of genital herpes. Discussed with pt. importance of reporting any outbreaks during should they occur.TKRN History of Depression - 09/08/2015 Comment: 09/18/2015Pt has a history of depression diagnosed at age 14. She has been off medication since April . Discussed increased risks of depression during and and importance of reporting the development or worsening of symptoms should they occur.Pt denies ever having any suicidal thoughts or tendencies or thoughts of hurting others.TKRN History of Marijuana Use - 09/08/2015 Comment: 09/08/2015Patient states she has used marijuana in the past, but none for the past 1-2 months. Denies any other drug use. Discussed with patient importance of avoiding any drug use in . TKRN January 31, 2016 + tox for amphetamines and THC. Carlie Campbell MD Tobacco Use - 08/26/2007 Comment: Since age 14 or so, currently at 1/2 ppd (05/2009) ROS: REVIEW OF SYSTEMS GENERAL: No weight loss, malaise or fevers/chills HEENT: Negative for frequent or significant headaches, No changes in hearing or vision. NECK: Negative for lumps, goiter, pain and significant neck swelling RESPIRATORY: Negative for cough, hemoptysis, wheezing, dyspnea or shortness of breath CARDIOVASCULAR: Negative for chest pain, leg swelling, orthopnea, or palpitations GI: No nausea, vomiting, or diarrhea/constipation. No hematochezia/melena. No heartburn or reflux symptoms. : No history of dysuria, frequency or incontinence MUSCULOSKELETAL: Negative for joint pain or swelling. SKIN: Negative for lesions, rash, and itching ENDOCRINE: Negative for cold or heat intolerance, polyuria, polydipsia and goiter NEURO: No history of headaches, syncope, paralysis, seizures or tremors MOOD: Negative for depression, anxiety, or suicidal ideation. PAST MEDICAL HISTORY Diagnosis Date Anemia ASCUS with positive high risk HPV cervical 05/29/2023 Chlamydia 2004,2008,2013 x3 Herpes simplex virus (HSV) infection History of gastric bypass 09/08/2015 Hypoglycemia 08/12/13 Iron deficiency 08/29/2016 Kidney stone Marijuana use Mental disorder RLS (restless legs syndrome) Amezquita Seizure Overdose of Wellbutrin Seizures (HCC) Thrombosed hemorrhoids 2013 PAST SURGICAL HISTORY Procedure Laterality Date DELIVERY ONLY 2002 , low cervical DELIVERY ONLY N/A 04/23/2016 GASTRIC BYPASS HX 04/2011 HEMORRHOIDECTOMY NEUROPLASTY AND/TRANSPOS MEDIAN NRV CARPAL TUNNE Right 02/11/2020 Right carpal tunnel release PAST SURGICAL HISTORY OF kidney stone PAST SURGICAL HISTORY OF 01/2020 b (more content not included)... Normal [facility] CNPNon 12-18-2023 CNPN Telephone (FAMPWS) -- CITLALI BECKWITH ([id number]) 1985 F Date Time Provider Department 12/18/23 PAUL KENDRICK [facility] During your visit today, we recorded the following information about you: Liliana Smith RN 12/18/2023 9:13 AM Signed Pt called in and reports the employee health nurse at their work gives her her B12 injections. She states she needs Reid Kendrick to send in a new letter stating she can get them done there. Provider had written a letter on 11/15/22, that was good for a year. She is asking if he could write a new one and send it to Kristin Tejdea at the [facility], fax # [phone]. Pt states she is due to have an injection today. Paul Kendrick MD 12/18/2023 9:51 AM Signed written Liliana Smith RN 12/18/2023 11:10 AM Signed Letter printed and faxed to Kristinyissel Tejeda at the [facility], fax # [phone]. Allergies As of Date: 12/18/2023 Noted Allergy Reaction ADHESIVE TAPE (ROSINS) 08/14/2013 2 - Rash ASPIRIN 08/14/2013 Comments: Unable to take aspirin after having gastric bypass surgery EFFEXOR (VENLAFAXINE) 05/01/2017 14 - Other: See Comments Comments: Dry heaves, shaking uncotrollable LATEX 07/09/2007 2 - Rash NSAIDS (NON-STEROIDAL ANTI-INFLAM*07/05/2014 Comments: due to gastric bypass WELLBUTRIN (BUPROPION HCL) 11/28/2006 14 - Other: See Comments Comments: Seizure-was on overdose. Has taken it since then and done fine. Date Reviewed: 05/17/2023 Reviewed by: Evelin Lund APRN.CERTIFIED CODING SPECIALIST - Fully Assessed Reason for Visit: Injection Letter [Other] Prescriptions as of 12/18/2023 - traZODone (DESYREL) 100 mg tablet Take 1 tablet by mouth daily at bedtime. - gabapentin (NEURONTIN) 300 mg capsule Take 3 capsules by mouth daily at bedtime for 180 days. - cyanocobalamin 1,000 mcg/mL Inject 1 mL intramuscularly once every month. - cyanocobalamin 1,000 mcg/mL Inject 1 mL intramuscularly once every month. - valACYclovir (VALTREX) 500 mg tablet Take one tablet by mouth once a day. - doxycycline hyclate (VIBRAMYCIN) 100 mg capsule Take 1 capsule by mouth two times a day. - pantoprazole DR (PROTONIX) 40 mg tablet Take 1 tablet by mouth daily before breakfast. Take on empty stomach, 1/2 hr before meal. - lansoprazole (PREVACID) 30 mg capsule Take 1 capsule by mouth daily before breakfast. 1/2 hr before meal. - methylphenidate ER (CONCERTA) 54 mg biphasic tablet Take 1 tablet by mouth once daily for 30 days. - lidocaine urojet (GLYDO) 2 % jelp Apply 5 mL to affected area three times a day as needed. - cephALEXin (KEFLEX) 250 mg capsule TAKE ONE TABLET BY MOUTH AT BEDTIME FOR 90 DAYS, THEN AFTER intercourse - Acidophilus-Pectin, Soddy-Daisy 25 million cell -100 mg tab Take 1 tablet by mouth every afternoon. - Cholecalciferol, Vitamin D3, 25 mcg (1,000 unit) cap Take 1 capsule by mouth once daily. - Cholecalciferol, Vitamin D3, 25 mcg (1,000 unit) cap Take 1 capsule by mouth once daily. - levonorgestrel (MIRENA) 20 mcg/24 hours (7 yrs) 52 mg IUD 1 Each by INTRAUTERINE route as directed. Problem List As Of Date 12/18/2023 Noted Resolved ADJUSTMENT REACTION NOS [F43.20] 12/19/2006 07/14/2007 Seborrheic dermatitis, unspecified [L21.9] 06/12/2007 08/29/2016 Attention deficit disorder [F98.8] 07/14/2007 08/29/2016 Adjustment disorder with depressed mood [F43.21]07/14/2007 08/29/2016 Tobacco use [Z72.0] 08/26/2007 Routine general medical examination at [facility]*06/30/2009 09/13/2015 Class: Chronic Routine gynecological examination [Z01.419] 06/30/2009 09/13/2015 Class: Chronic Morbid obesity (HCC) [E66.01] 06/30/2009 09/13/2015 Insomnia [G47.00] 06/30/2009 09/13/2015 Thrombosed external hemorrhoid [K64.5] 08/14/2013 09/13/2015 Recurrent UTI (urinary tract infection) complic*07/22/2014 08/29/2016 Kidney stones [N20.0] 07/22/2014 09/13/2015 Marijuana abuse [F12.10] 04/27/2015 08/29/2016 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] 09/08/2015 12/04/2019 History of delivery, currently pregnan*09/08/2015 05/07/2016 History of recurrent UTI (urinary tract infecti*09/08/2015 History of herpes genitalis [Z86.19] 09/08/2015 History of depression [Z86.59] 09/08/2015 Tobacco use in [O99.330] 09/08/2015 08/29/2016 History of marijuana use [F12.91] 09/08/2015 H/O macrosomia in in prior , cu*09/08/2015 08/29/2016 Patient requested diagnostic testing [Z01.89] 09/08/2015 11/21/2015 History of kidney stones [Z87.442] 09/08/2015 09/13/2015 Trichomonal vaginitis during in secon*11/28/2015 08/29/2016 Urgency of urination [R39.15] 01/19/2016 08/29/2016 Frequency of micturition [R35.0] 01/19/2016 08/29/2016 UTI (urinary tract infection) in , ant*02/16/2016 02/16/2016 RLS (restless legs syndrome) [G25.81] 08/29/2016 Iron deficiency [E61.1] 08/29/2016 12/04/2019 Anemia due to vitamin B12 de (more content not included)... Normal [facility] CBC W Auto Differential pane l (Bld)on 10-03-2022 Basophils (Bld) [#/Vol] 0.06 10*3/uL <0.11 k/uL [facility] Basophils/100 WBC (Bld) 1.0 % [facility] Differential cell count method Nom (Bld) Auto [facility] Eosinophils (Bld) [#/Vol] 0.13 10*3/uL <0.46 k/uL [facility] Eosinophils/100 WBC (Bld) 2.2 % [facility] Erythrocyte distribution width (RBC) [Ratio] 12.2 % 11.5 - 15.0 % [facility] Hematocrit (Bld) [Volume fraction] 37.5 % 36.0 - 46.0 % [facility] Hemoglobin (Bld) [Mass/Vol] 12.5 g/dL 11.5 - 15.5 g/dL [facility] Immature granulocytes (Bld) [#/Vol] <0.10 k/uL [facility] Immature granulocytes/100 WBC (Bld) 0.2 % [facility] Lymphocytes (Bld) [#/Vol] 1.73 10*3/uL 1.00 - 4.00 k/uL [facility] Lymphocytes/100 WBC (Bld) 29.3 % [facility] MCH (RBC) [Entitic mass] 30.6 pg 26.0 - 34.0 pg [facility] MCHC (RBC) [Mass/Vol] 33.3 g/dL 30.5 - 36.0 g/dL [facility] MCV (RBC) [Entitic vol] 91.9 fL 80.0 - 100.0 fL [facility] Monocytes (Bld) [#/Vol] 0.47 10*3/uL <0.87 k/uL [facility] Monocytes/100 WBC (Bld) 8.0 % [facility] Neutrophils (Bld) [#/Vol] 3.50 10*3/uL 1.45 - 7.50 k/uL [facility] Neutrophils/100 WBC (Bld) 59.3 % [facility] Nucleated RBC (Bld) [#/Vol] <0.01 k/uL [facility] Nucleated RBC/100 WBC (Bld) [Ratio] 0.0 /100 WBC [facility] Platelet mean volume (Bld) [Entitic vol] 10.5 fL 9.0 - 12.7 fL [facility] Platelets (Bld) [#/Vol] 195 10*3/uL 150 - 400 k/uL [facility] RBC (Bld) [#/Vol] 4.08 10*6/uL 3.90 - 5.2 0 m/uL [facility] WBC (Bld) [#/Vol] 5.90 10*3/uL 3.70 - 11. 00 k/uL [facility] Comprehensive metabolic 2000 panelon 10-03-2022 Albumin [Mass/Vol] 4.5 g/dL 3.9 - 4.9 g/dL [facility] ALP [Catalytic activity/Vol] 57 U/L 34 - 123 U/L [facility] ALT [Catalytic activity/Vol] 25 U/L 7 - 38 U/L [facility] Anion gap [Moles/Vol] 12 mmol/L 9 - 18 mmol/L [facility] AST [Catalytic activity/Vol] 24 U/L 13 - 35 U/L [facility] Bilirubin [Mass/Vol] 1.9 mg/dL High 0.2 - 1 .3 mg/dL [facility] Calcium [Mass/Vol] 8.9 mg/dL 8.5 - 10. 2 mg/dL [facility] Chloride [Moles/Vol] 104 mmol/L 97 - 10 5 mmol/L [facility] CO2 [Moles/Vol] 23 mmol/L 22 - 30 mmol/L [facility] Creatinine [Mass/Vol] 0.76 mg/dL 0.58 - 0.96 mg/dL [facility] Estimated Glomerular Filtration Rate 104 mL/min/1.73m >=60 mL/min/1.73m [facility] Glucose [Mass/Vol] 97 mg/dL 74 - 99 mg/dL [facility] Potassium [Moles/Vol] 3.9 mmol/L 3.7 - 5.1 mmol/L [facility] Protein [Mass/Vol] 6.3 g/dL 6.3 - 8.0 g/dL [facility] Sodium [Moles/Vol] 139 mmol/L 136 - 144 mmol/L [facility] Urea nitrogen [Mass/Vol] 15 mg/dL 7 - 21 mg/dL [facility] FOLATE SERUMon 10-03-2022 Folate [Mass/Vol] >4.7 ng/mL [facility] Iron and Iron binding capaci ty panelon 10-03-2022 Iron [Mass/Vol] 72 ug/dL 41 - 186 ug/dL [facility] [facility] Iron binding capacity [Mass/Vol] 337 ug/dL 232 - 386 ug/dL [facility] Iron/TIBC [Molar ratio] 21.4 % 15.0 - 57.0 % [facility] VITAMIN B12 BLOODon 10-04-19 Cobalamin (Vitamin B12) [Mass/Vol] High 232 - 1,245 pg/mL [facility] Absolute lymphocyte counton 06-23-2021 Lymphocytes Auto (Unsp spec) [#/Vol] 0.81 10*3/uL 0.83-4.51 [facility] Work Phone: Basophil percentageon 2021 Basophils/100 WBC (Bld) 0.2 % 0-1 [facility] Work Phone: Eosinophils/100 WBC (Bld) 0.6 % 0-5 [facility] Work Phone: Neutrophils (Bld) [#/Vol] 8.4 10*3/uL 2.0-7.7 [facility] Work Phone: Neutrophils/100 WBC (Bld) 84.3 % 47-70 [facility] Work Phone: WBC (Bld) [#/Vol] 10.0 10*3/uL 4.4-11.0 [facility] Work Phone: Blood erythrocytes count (nu mber/volume)on 06-23-2021 RBC (Bld) [#/Vol] 3.69 10*6/uL 4.2-5.4 [facility] Work Phone: Blood hemoglobin measurement (mass/volume)on 06-23-2021 Hemoglobin (Bld) [Mass/Vol] 11.6 g/dL 12.0-15.0 [facility] Work Phone: Blood lymphocytes/100 leukoc yteson 06-23-2021 Lymphocytes/100 WBC (Bld) 8.1 % 19-41 [facility] Work Phone: Blood monocytes/100 leukocyt eson 06-23-2021 Monocytes/100 WBC (Bld) 6.5 % 0-10 [facility] Work Phone: Blood platelet mean volumeon 06-23-2021 Platelet mean volume (Bld) [Entitic vol] 10.2 fL 6.2-12.0 [facility] Work Phone: Color of specimen determinat ionon 06-23-2021 Color (Unsp spec) Not Reportable [facility] Work Phone: Determination of erythrocyte mean corpuscular volume (MCV)on 06-23-2021 MCV (RBC) [Entitic vol] 91.1 fL 81-99 [facility] Work Phone: Hematocrit Auto (Bld) [Volum e fraction]on 06-23-2021 Hematocrit (Bld) [Volume fraction] 33.6 % 37-47 [facility] Work Phone: Laboratory - Coagulationon 0 06-23-2021 aPTT Coag (Bld) [Time] 29.9 s 24.1-36.2 [facility] Work Phone: Laboratory - Hematology and Cell countson 06-23-2021 Erythrocyte distribution width (RBC) [Entitic vol] 42.0 fL 35.1-43.9 [facility] Work Phone: Erythrocyte distribution width (RBC) [Ratio] 12.7 % 11.6-14.6 [facility] Work Phone: Immature granulocytes/100 WBC (Bld) 0.300 % 0.0-0.9 [facility] Work Phone: Comment on above: IG% - Immature Granu locytes (promyelocytes, myelocytes and metamyelocytes) > 1% indicates that a LEFT SHIFT is Present. MCH (RBC) [Entitic mass] 31.4 pg 27.0-32.0 [facility] Work Phone: Nucleated RBC/100 WBC (Bld) [Ratio] 0 % 0-5 [facility] Work Phone: MCHC Auto (RBC) [Mass/Vol]on 06-23-2021 MCHC (RBC) [Mass/Vol] 34.5 g/dL 32-36 [facility] Work Phone: Measurement of weight of sto neon 06-23-2021 Weight (Stone) Not Reportable [facility] Work Phone: Origin of Stoneon 06-23-2021 Origin Nom (Stone) See comment [facility] Work Phone: Comment on above: TEST RESULT UNITS RE F INTERVALStone AnalysisSource Right UreterColor TanSize 6x4 mm Single piece received.Weight 89 mgComposition Percentage (Represents the % composition)Calcium OxalateMonohydrate 75 %Calcium Oxalate Dihydrate 20 %Hydroxyapatite 5 %Comment Calculus received in liquid. Wet calculi must be driedbefore analysis, which delays reporting of results. Leavingcalculi in liquid (such as water, saline, blood, urine) maylead to changes in composition.Photo Photograph will follow under a separate coverComment: Physician questions regarding Calculi Analysis [facility] at: [phone].Please note: Calculi report will follow via computer, mail or courierdelivery.Disclaimer: This test was developed and its performance characteristicsdetermined by [employer]. It has not been cleared or approvedby the Food and Drug Administration. TESTING PERFORMED AT [facility]. ORIGINAL REPORT ON FILE IN LAB CONTAINS ADDITIONAL TEST SITE INFORMATION. Platelets bldon 06-23-2021 Platelets (Bld) [#/Vol] 142 10*3/uL 150-450 [facility] Work Phone: Size of stoneon 06-23-2021 Size (Stone) [Entitic vol] Not Reportable [facility] Work Phone: Absolute lymphocyte counton 06-22-2021 Lymphocytes Auto (Unsp spec) [#/Vol] 1.58 10*3/uL 0.83-4.51 [facility] Work Phone: Basophil percentageon 2021 Basophil percentage >100 SEEN /hpf 0-5 [facility] Work Phone: Basophils/100 WBC (Bld) 0.5 % 0-1 [facility] Work Phone: Chloride [Moles/Vol] 106 mmol/L 98-107 [facility] Work Phone: Eosinophils/100 WBC (Bld) 1.3 % 0-5 [facility] Work Phone: Glucose [Mass/Vol] 97 mg/dL 74-106 [facility] Work Phone: Neutrophils (Bld) [#/Vol] 3.8 10*3/uL 2.0-7.7 [facility] Work Phone: Neutrophils/100 WBC (Bld) 63.4 % 47-70 [facility] Work Phone: Potassium [Moles/Vol] 3.5 mmol/L 3.5-5.1 [facility] Work Phone: Sodium [Moles/Vol] 139 mmol/L 136-145 [facility] Work Phone: WBC (Bld) [#/Vol] 6.0 10*3/uL 4.4-11.0 [facility] Work Phone: Beta hCG serum qualon 2021 Beta HCG ( test) Ql Negative [facility] Work Phone: Bilirubin Test strip Ql (U)o n 06-22-2021 Bilirubin Ql (U) 1 mg/dL Negative [facility] Work Phone: Comment on above: COLOR OF URINE MAY A FFECT DIPSTICK RESULTS. Blood erythrocytes count (nu mber/volume)on 06-22-2021 RBC (Bld) [#/Vol] 4.33 10*6/uL 4.2-5.4 [facility] Work Phone: Blood hemoglobin measurement (mass/volume)on 06-22-2021 Hemoglobin (Bld) [Mass/Vol] 13.7 g/dL 12.0-15.0 [facility] Work Phone: Blood lymphocytes/100 leukoc yteson 06-22-2021 Lymphocytes/100 WBC (Bld) 26.6 % 19-41 [facility] Work Phone: Blood monocytes/100 leukocyt eson 06-22-2021 Monocytes/100 WBC (Bld) 7.9 % 0-10 [facility] Work Phone: Blood platelet mean volumeon 06-22-2021 Platelet mean volume (Bld) [Entitic vol] 10.4 fL 6.2-12.0 [facility] Work Phone: Determination of erythrocyte mean corpuscular volume (MCV)on 06-22-2021 MCV (RBC) [Entitic vol] 91.2 fL 81-99 [facility] Work Phone: Hematocrit Auto (Bld) [Volum e fraction]on 06-22-2021 Hematocrit (Bld) [Volume fraction] 39.5 % 37-47 [facility] Work Phone: Ketones Test strip Ql (U)on 06-22-2021 Ketones Ql (U) 5 mg/dl Negative [facility] Work Phone: Laboratory - Chemistry and C hemistry - challengeon 06-22-2021 HCG ( test) Ql (U) Negative [facility] Work Phone: Comment on above: Very dilute urine sp ecimens, as indicated by a low specificgravity, may not contain financial services sales representative levels of hCG. If is still suspected, a first morning urinespecimen should be collected 48 hours later and tested. CO2 [Moles/Vol] 26.0 mmol/L 21.0-32.0 [facility] Work Phone: HCG ( test) Ql (U) Negative [facility] Work Phone: Comment on above: Very dilute urine sp ecimens, as indicated by a low specificgravity, may not contain financial services sales representative levels of hCG. If is still suspected, a first morning urinespecimen should be collected 48 hours later and tested. Urea nitrogen/Creatinine [Mass ratio] 22.6 mg/mg 10-20 [facility] Work Phone: Laboratory - Hematology and Cell countson 06-22-2021 Erythrocyte distribution width (RBC) [Entitic vol] 41.3 fL 35.1-43.9 [facility] Work Phone: Erythrocyte distribution width (RBC) [Ratio] 12.6 % 11.6-14.6 [facility] Work Phone: Immature granulocytes/100 WBC (Bld) 0.300 % 0.0-0.9 [facility] Work Phone: Comment on above: IG% - Immature Granu locytes (promyelocytes, myelocytes and metamyelocytes) > 1% indicates that a LEFT SHIFT is Present. MCH (RBC) [Entitic mass] 31.6 pg 27.0-32.0 [facility] Work Phone: Nucleated RBC/100 WBC (Bld) [Ratio] 0 % 0-5 [facility] Work Phone: MCHC Auto (RBC) [Mass/Vol]on 06-22-2021 MCHC (RBC) [Mass/Vol] 34.7 g/dL 32-36 [facility] Work Phone: Mucus LM Ql (Urine sed)on Mucus Ql (Urine sed) 0 SEEN /hpf [facility] Work Phone: Nitrite Test strip Ql (U)on 06-22-2021 Nitrite Ql (U) Negative Negative [facility] Work Phone: No Panel Informationon 06-22 Estimated Creatinine Clearance Calc 93.31 ml/min [facility] Work Phone: Estimated GFR (MDRD) Amer 112 mL/min >60 [facility] Work Phone: Comment on above: GFR Calc Estimated GFR (MDRD) Non-Af Amer 92 mL/min >60 [facility] Work Phone: Comment on above: Non- GFR Calc Platelets bldon 06-22-2021 Platelets (Bld) [#/Vol] 201 10*3/uL 150-450 [facility] Work Phone: Protein Test strip Ql (U)on 06-22-2021 Protein Ql (U) 30 mg/dl Negative [facility] Work Phone: Serum or plasma calcium sheryl urement (mass/volume)on 06-22-2021 Calcium [Mass/Vol] 8.7 mg/dL 8.5-10.1 [facility] Work Phone: Serum or plasma creatinine m easurement (mass/volume)on 06-22-2021 Creatinine [Mass/Vol] 0.75 mg/dL 0.55-1.02 [facility] Work Phone: Comment on above: The validity of the calculated GFR & GFRAA in patients over 70 years has not been determined. Clinical correlation is essential. Serum or plasma urea nitroge n measurement (mass/volume)on 06-22-2021 Urea nitrogen [Mass/Vol] 17 mg/dL 7-18 [facility] Work Phone: Squamous epithelial cells de tection in urine sediment by light microscopyon 06-22-2021 Epithelial cells.squamous LM Ql (Urine sed) 0-5 SEEN /hpf 5-10 [facility] Work Phone: Thin prep Papanicolaou smear with manual screeningon 06-22-2021 Thin prep Papanicolaou smear with manual screening 7 5-15 [facility] Work Phone: Urine blood detectionon 05-31 RBC Ql (U) 150 /ul Negative [facility] Work Phone: RBC Ql (U) 0 SEEN /hpf 0-5 [facility] Work Phone: Urine clarityon 06-22-2021 Clarity (U) Cloudy Clear [facility] Work Phone: Urine color determinationon 06-22-2021 Color (U) Yellow Yellow [facility] Work Phone: Urine glucose detectionon Glucose Ql (U) Normal mg/dl Normal [facility] Work Phone: Urine leukocyte esterase det ection by dipstickon 06-22-2021 Leukocyte esterase Test strip Ql (U) 500 /ul Negative [facility] Work Phone: Urine pHon 06-22-2021 pH (U) 6.0 [pH] 5.0 - 8.0 [facility] Work Phone: Urine sediment bacteria coun t by microscopy (number/high power field)on 06-22-2021 Bacteria LM.HPF (Urine sed) [#/Area] 3 /[HPF] None Seen [facility] Work Phone: Urine specific gravity measu rementon 06-22-2021 Specific gravity (U) [Rel density] 1.015 1.002-1.030 [facility] Work Phone: Urobilinogen Auto test strip Ql (U)on 06-22-2021 Urobilinogen Ql (U) 8 mg/dl Normal [facility] Work Phone: XR Finger - right AP and Lat eral and obliqueon 06-12-2020 IMPRESSION: Negative Electrical Estimator: ARMEN Transcribe Date/Time: Jun 12 2020 10:08A Dictated by : FRANKIE COBB MD This examination was interpreted and the report reviewed and electronically signed by: FRANKIE COBB MD on Jun 12 2020 10:09AM [facility] DIVISION OF RADIOLOGY * * *Final Report* * * DATE OF EXAM: Jun 11 2020 9:26AM WOX [id number] - XR DIGIT 3V FRONTAL/LAT/OBL RT / PROCEDURE REASON: Thumb tendonitis * * * * Physician Interpretation * * * * PROCEDURE: Right thumb INDICATION: Thumb tendonitis .right PIP joint pain in thumb 1st finger. Can't do buttons or small things. TECHNIQUE: XR DIGIT 3V FRONTAL/LAT/OBL RT COMPARISON: None FINDINGS: No fractures or dislocations are seen. The bones, joint spaces and soft tissues are unremarkable. DIVISION OF RADIOLOGY Provider, [facility] - 06/12/2020 * * *Final Report* * * DATE OF EXAM: Jun 11 2020 9:26AM WOX [id number] - XR DIGIT 3V FRONTAL/LAT/OBL RT / PROCEDURE REASON: Thumb tendonitis * * * * Physician Interpretation * * * * PROCEDURE: Right thumb INDICATION: Thumb tendonitis .right PIP joint pain in thumb 1st finger. Can't do buttons or small things. TECHNIQUE: XR DIGIT 3V FRONTAL/LAT/OBL RT COMPARISON: None FINDINGS: No fractures or dislocations are seen. The bones, joint spaces and soft tissues are unremarkable. IMPRESSION IMPRESSION: Negative Electrical Estimator: PSCB Transcribe Date/Time: Jun 12 2020 10:08A Dictated by : FRANKIE COBB MD This examination was interpreted and the report reviewed and electronically signed by: FRANKIE COBB MD on Jun 12 2020 10:09AM EST [facility] XR Finger - right AP and Lat eral and obliqueOrdered By: [facility] Provider on 06-12-2020 [facility] XR Finger - right AP and Lat eral and obliqueon 06-11-2020 Radiology Study observation (narrative) [facility] ANES POSTPROC EVALon 020 ANES POSTPROC EVAL HNO ID: [id number] Author: Yovani Danielle Service: ? Author Type: Anesthesiologist Type: Anesthesia Postprocedure Evaluation Filed: 03/11/2020 2:47 PM Note Text: POST ANESTHESIA EVALUATION NOTE : 1985 Procedure Summary Date: 03/11/20 Room / Location: [facility] OR03 / [facility] OR Anesthesia Start: 1010 Anesthesia Stop: 104 Procedure: DECOMPRESSION NERVE MEDIAN CARPAL TUNNEL (Left Hand) Diagnosis: Carpal tunnel syndrome of left wrist Surgeons: Asif Coronado Responsible Provider: Yovani Danielle Anesthesia Type: MAC ASA Status: 2 Anesthesia Type: MAC Last vitals Vitals Value Taken Time BP 99/63 03/11/20 1122 Temp 36 03/11/20 1446 Pulse 88 03/11/20 1122 Resp 16 03/11/20 1122 SpO2 98 % 03/11/20 1122 Post Anesthesia Patient Status Patient Evaluation: PACU. PACU/ICU Patient Condition: stable. Anticipated Disposition: phase 2 then home. Neurological Status: aware and responsive. Pulmonary Status: breathing comfortably on room air Airway Control: returned to baseline unsupported. Cardiovascular Status: stable. Pain Management: clinically adequate - multimodal analgesia pain management approach Postoperative Hydration: acceptable. Intraoperative Events: no significant anesthesia events Post Operative Nausea/Vomiting Status: Anesthetic Observations: no significant anesthetic observations Recommendation: continue current plan of care. SIGNATURE: Yovani Danielle MD PATIENT NAME: Citlali Beckwith DATE: March 11, 2020 TIME: 2:46 PM CSN: [id number] [facility] ANES PRE-OPon 03-11-2020 ANES PRE-OP HNO ID: [id number] Author: Yovani Danielle Service: ? Author Type: Anesthesiologist Type: Anesthesia Preprocedure Evaluation Filed: 03/11/2020 9:22 AM Note Text: ANESTHESIOLOGY DAY OF SURGERY NOTE : 1985 Procedure(s) (LRB): DECOMPRESSION NERVE MEDIAN CARPAL TUNNEL (Left) Surgeon(s): Asif Coronado Estimated body mass index is 33.28 kg/m? as calculated from the following: Height as of this encounter: 165.1 cm (5' 5). Weight as of this encounter: 90.7 kg (200 lb). Most recent hematocrit and potassium results: Hematocrit 40.8 01/18/2020 Potassium 3.7 01/21/2019 Relevant Problems ANESTHESIA (+) FLOR (obstructive sleep apnea) NEURO-PSYCH (+) History of depression (+) History of herpes genitalis (+) History of marijuana use (+) History of recurrent UTI (urinary tract infection) (+) Seizures (HCC) PULMONARY (+) History of herpes genitalis (+) History of recurrent UTI (urinary tract infection) (+) FLOR (obstructive sleep apnea) I - PHYSICAL EVALUATION AIRWAY Patient intubated: No. Mallampati: II. TM distance: >3 FB. Neck ROM: full ROM without neurological symptoms. Mouth opening: adequate. Short neck: no. Thick neck: no DENTAL Normal dental observations. Dental findings: teeth intact. II - ANESTHESIA PLAN ASA Score: 2 Anesthetic Plan: spinal and regional Anesthetic plan additional comments: (pre op adductor canal block) + MAC Sedation. NPO Status: adequate Monitoring plan: Standard ASA. Postoperative analgesic plan: parenteral or oral opioids, multimodal analgesia and peripheral nerve block. Anesthetic Risks, Benefits, Alternatives, Personnel Discussed. Consent obtained from: patient. Patient / Surrogate agrees to blood products: yes DNR status not reviewed with patient and/or family prior to surgery. Significant changes in the patient condition since the History and Physical, not otherwise documented in primary service progress note: no. Potential Anesthesia issues that may suggest increased risk of complications or contraindication to planned procedure: none. Vitals Value Taken Time BP 140/77 03/11/20 0847 Pulse 75 03/11/20 0847 Resp 16 03/11/2047 Temp 36.9 ?C (98.4 ?F) 03/11/20 0847 SpO2 100 % 03/11/20 0847 Facility-Administered Medications as of 03/11/2020 Medication Dose Route Frequency - lidocaine 10 mg/mL (1 %) 1-2 mg injection (XYLOCAINE) 0.1-0.2 mL INTRADERMAL PRN - lactated ringers infusion 5-30 mL/hr INTRAVENOUS CONTINUOUS - ceFAZolin iv piggyback 2 g in D5W (iso-osmotic) 100 mL (ANCEF) 2 g INTRAVENOUS Pre-Op Once Outpatient Medications as of 03/11/2020 Medication Sig - traZODone (DESYREL) 50 mg tablet Take 1 tablet by mouth daily at bedtime. - ELURYNG 0.12-0.015 mg/24 hr vaginal ring INSERT 1 RING VAGINALLY DIRECTED. REMOVE AFTER 3 WEEKS AND WAIT 7 DAYS BEFORE INSERTING A NEW RING - CPAP [place] access to [facility], send detailed download. mask (pt pref), nasal pillows may be too big, try nasal, filters, heated humidity AND tubing. Lifetime supplies. FLOR G47.33npi [id number] - gabapentin (NEURONTIN) 300 mg capsule Take 3 capsules by mouth daily at bedtime for 90 days. TAKE 4 CAPSULES BY MOUTH DAILY AT BEDTIME. - CPAP Initiate Auto PAP @ 5-20 cm of water with humidification. Mask (per patient preference) optional chin strap (if indicated) , filters, tubing, humidifier and lifetime supplies. - nicotine (NICODERM) 21 mg/24 hr Apply 1 Patch as directed every 24 hours. - fluticasone (FLONASE ALLERGY RELIEF) 50 mcg/actuation nasal spray Use 1 [place] in each nostril once daily. - cetirizine (ZYRTEC) 10 mg tablet Take 10 mg by mouth once daily. - ergocalciferol 50,000 unit capsule (VITAMIN D2, DRISDOL) Take 1 capsule by mouth one time a week. - VYVANSE 60 mg capsule 1 capsule once daily. I have interviewed and examined the patient. I have reviewed the medical record and/or the pre-anesthesia evaluation, pertinent labs, and test results. This contains updated information obtained within 48 hours of Surgery/Procedure. SIGNATURE: Yovani Danielle MD PATIENT NAME: Citlali Beckwith DATE: March 11, 2020 TIME: 9:22 AM CSN: [id number] [facility] OPERATIVE NOon 03-11-2020 OPERATIVE NO HNO ID: [id number] Author: Asif Coronado Service: Orthopaedic Surgery Author Type: Physician Type: Operative Report Filed: 03/15/2020 7:46 AM Note Text: [place] [id number] [place] OPERATIVE REPORT NAME:Citlali Beckwith [id number] DATE: March 15, 2020 AGE: [age] year old SURGEON 1: Asif Coronado M.D. OPERATION: Left carpal tunnel release, open. ANESTHESIA: MAC with local. PREOPERATIVE DIAGNOSIS: Left carpal tunnel syndrome. POSTOPERATIVE DIAGNOSIS: Left carpal tunnel syndrome. OPERATIVE INDICATIONS: This is a pleasant 34 year old female who had worsening, numbness, and tingling. She declined nerve testing, but had successful previous cortisone injection. She exhausted conservative management and in the office, we discussed the risks, benefits, alternatives, and potential complications involving carpal tunnel release and she wished to pursue surgical intervention. OPERATIVE FINDINGS: Consistent with postoperative diagnosis. OPERATIVE PROCEDURE: On March 15, 2020, the patient was clearly identified in the preoperative area and marked accordingly on the Left palm by myself. She was taken to the operative suite and placed in the supine position with an armboard on the Left. She received 2 g of Ancef in the IV within 1 hour of incision or tourniquet. Anesthesia assumed care of the head and neck for the remainder of the case and began a MAC anesthetic. All other bony landmarks were appropriately padded in standard fashion. The upper extremity had a well-padded upper brachium tourniquet applied with Webril padding and set at 250 mmHg, but not yet inflated. The arm was then sterilely prepped and draped in standard fashion. An appropriate time-out was conducted and all in the room were in agreement, signed consent form was on the chart. The upper extremity was exsanguinated with an Esmarch bandage and the tourniquet was applied at 250 mmHg. Local anesthetic was provided at the palm and wrist with 1% lidocaine plain and 0.25% Marcaine plain in a 1:1 ratio for total of 4 mL. A longitudinal incision was made with in line with the third web space from 1 cm distal of the wrist crease to Faustin's cardinal line. I used Aguila Rakes to retract the soft tissues. Bipolar electrocautery was used for hemostasis. I bluntly dissected down with Littler scissors to distal edge of the transverse carpal ligament until a flash of fat was noted. I directly divided distal edge of the transverse carpal ligament with a #15 blade. Attention was then focused on the proximal portion and I used Littler scissors to bluntly dissect off the volar surface of the transverse carpal ligament. A carpal tunnel and median nerve protection guide was slid directly under the ligament for dilation and a second time for appropriate positioning, this was passed freely without any resistance. Subsequently, I selected a mini meniscotome Craig blade and slid this in the protective guide, completely dividing the transverse carpal ligament. Aguila rakes were used to view up the wound to visualize for complete release and a Helton elevator was used to palpate for complete release. At this point, the tourniquet was taken down and hemostasis was observed. The wound was copiously irrigated with normal saline and I closed with 3-0 nylons in horizontal mattress fashion for a total of 3. Xeroform gauze, sterile 4 x 4 gauze, Webril padding, and a Bias roll was used for final bandage. There were no complications during the procedure. The patient was safely awoken and transferred to the Postanesthetic Care Unit in stable condition. Incision/Procedure Start Time: 10:19 AM Incision Close/Procedure End Time: 10:33 AM ESTIMATED BLOOD LOSS: None. DRAINS: None SPECIMENS: None. Asif Coronado M.D. [facility] 02-29-2020 [facility] Patient:Citlali Beckwith MRN: Height:5' 5(1.651 m) Weight:200 lb (90.719 kg) Outpatient Medications as of 03/11/20: traZODone (DESYREL) 50 mg tablet ELURYNG 0.12-0.015 mg/24 hr vaginal ring CPAP gabapentin (NEURONTIN) 300 mg capsule CPAP nicotine (NICODERM) 21 mg/24 hr fluticasone (FLONASE ALLERGY RELIEF) 50 mcg/actuation nasal spray cetirizine (ZYRTEC) 10 mg tablet ergocalciferol 50,000 unit capsule (VITAMIN D2, DRISDOL) VYVANSE 60 mg capsule Admission/Clinic Administered Medications as of 03/11/20: lidocaine 10 mg/mL (1 %) 1-2 mg injection (XYLOCAINE) lactated ringers infusion ceFAZolin iv piggyback 2 g in D5W (iso-osmotic) 100 mL (ANCEF) Problem List: Tobacco use [Z72.0] History of recurrent UTI (urinary tract infection) [Z87.440] History of herpes genitalis [Z86.19] History of depression [Z86.59] History of marijuana use [Z87.898] RLS (restless legs syndrome) [G25.81] Anemia due to vitamin B12 deficiency [D51.9] Anemia [D64.9] Cervical high risk HPV (human papillomavirus) test positive [R87.810] FLOR (obstructive sleep apnea) [G47.33] Seizures (HCC) [R56.9] 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 SURGERY AND DATE: 02/11/20 PATHOLOGY: benign SUBJECTIVE/INTERVAL HISTORY: Citlali Beckwith reports that she feels well. No fever or chills. minimal pain. States she did well overall. BM and urination back to normal. OBJECTIVE: ABDOMEN: Abdomen soft, non-tender, no hepatosplenomegaly. Incisions healing well. ASSESSMENT: postp bilateral salpingectomy PLAN: 1. Discussed results of pathology and implications with patient. 2. Postop restrictions reviewed. Carlie Campbell MD Previous Version Progress Notes ([facility]): Radha Dickens RN 03/01/2020 8:00 AM Signed Called pt. and appt. changed. [facility] ANES POSTPROC EVALon 020 ANES POSTPROC EVAL HNO ID: [id number] Author: Get Ramirez Service: ? Author Type: Physician Type: Anesthesia Postprocedure Evaluation Filed: 02/11/2020 10:30 AM Note Text: POST ANESTHESIA EVALUATION NOTE : 1985 Procedure Summary Date: 02/11/20 Room / Location: PA OR03 / PA OR Anesthesia Start: 738 Anesthesia Stop: 902 Procedures: LAPAROSCOPIC SALPINGECTOMY (Bilateral Abdomen quadrant lower) DECOMPRESSION NERVE MEDIAN CARPAL TUNNEL (Right ) Diagnosis: Request for sterilization Surgeons: Carlie Campbell; Asif Coronado Responsible Provider: Get Ramirez Anesthesia Type: general ASA Status: 2 Anesthesia Type: general Last vitals Vitals Value Taken Time BP 100/61 02/11/20 1004 Temp 36.2 ?C (97.2 ?F) 02/11/20 1000 Pulse 52 02/11/20 1005 Resp 33 02/11/20 1005 SpO2 95 % 02/11/20 1005 Vitals shown include unvalidated device data. Post Anesthesia Patient Status Patient Evaluation: bedside. Anticipated Disposition: phase 2 then home. Neurological Status: aware and responsive. Pulmonary Status: breathing comfortably on room air Airway Control: returned to baseline unsupported. Cardiovascular Status: stable. Pain Management: clinically adequate Postoperative Hydration: acceptable. Intraoperative Events: no significant anesthesia events Post Operative Nausea/Vomiting Status: no significant post operative nausea or vomiting Anesthetic Observations: no significant anesthetic observations Recommendation: continue current plan of care. SIGNATURE: Get Ramirez MD PATIENT NAME: Citlali Beckwith DATE: February 11, 2020 TIME: 10:30 AM CSN: [id number] [facility] ANES PRE-OPon 02-11-2020 ANES PRE-OP HNO ID: [id number] Author: Get Ramirez Service: ? Author Type: Physician Type: Anesthesia Preprocedure Evaluation Filed: 02/11/2020 7:06 AM Note Text: ANESTHESIOLOGY DAY OF SURGERY NOTE : 1985 Procedure(s) (LRB): LAPAROSCOPIC SALPINGECTOMY (Bilateral) DECOMPRESSION NERVE MEDIAN CARPAL TUNNEL (Right) Surgeon(s): Carlie Coronado Estimated body mass index is 33.92 kg/m? as calculated from the following: Height as of this encounter: 166.4 cm (5' 5.5). Weight as of this encounter: 93.9 kg (207 lb). Most recent hematocrit and potassium results: Hematocrit 40.8 01/18/2020 Potassium 3.7 01/21/2019 Relevant Problems ANESTHESIA (+) FLOR (obstructive sleep apnea) NEURO-PSYCH (+) History of depression (+) History of herpes genitalis (+) History of marijuana use (+) History of recurrent UTI (urinary tract infection) PULMONARY (+) History of herpes genitalis (+) History of recurrent UTI (urinary tract infection) (+) FLOR (obstructive sleep apnea) I - PHYSICAL EVALUATION AIRWAY Patient intubated: No. Mallampati: II. Neck ROM: full ROM without neurological symptoms. Mouth opening: adequate. Short neck: no. Thick neck: no DENTAL Dental findings: teeth intact. Additional exam findings: yes. CARDIOVASCULAR Normal cardiovascular observations. Rhythm: regular Rate: normal Additional comments: Normal S1 and S2. PULMONARY Additional comments: Normal vesicular breath sounds. II - ANESTHESIA PLAN ASA Score: 2 Anesthetic Plan: general Airway type: ETT The patient is not a current smoker. NPO Status: adequate Monitoring plan: standard ASA. Postoperative analgesic plan: multimodal analgesia. Anesthetic Risks, Benefits, Alternatives, Personnel Discussed. Consent obtained from: patient. Patient / Surrogate agrees to blood products: blood products not planned Significant changes in the patient condition since the History and Physical, not otherwise documented in primary service progress note: no. Potential Anesthesia issues that may suggest increased risk of complications or contraindication to planned procedure: none. Vitals Value Taken Time BP 108/66 02/11/20 0642 Pulse 66 02/11/20 0642 Resp 16 02/11/20641 Temp 36.3 ?C (97.3 ?F) 02/11/20641 SpO2 98 % 02/11/20641 Facility-Administered Medications as of 02/11/2020 Medication Dose Route Frequency - lidocaine 10 mg/mL (1 %) 1-2 mg injection (XYLOCAINE) 0.1-0.2 mL INTRADERMAL PRN - lactated ringers infusion 5-30 mL/hr INTRAVENOUS CONTINUOUS - [COMPLETED] ketorolac 60 mg injection (TORADOL) 60 mg INTRAMUSCULAR Pre-Op Once - [COMPLETED] acetaminophen 1,000 mg tab(s) (TYLENOL) 1,000 mg ORAL Pre-Op Once - [COMPLETED] gabapentin 600 mg tab(s) (NEURONTIN) 600 mg ORAL Pre-Op Once - scopolamine 1 mg over 3 days 1 Patch (TRANSDERM-SCOP) 1 Patch TRANSDERMAL ONCE Outpatient Medications as of 02/11/2020 Medication Sig - gabapentin (NEURONTIN) 300 mg capsule Take 3 capsules by mouth daily at bedtime for 90 days. TAKE 4 CAPSULES BY MOUTH DAILY AT BEDTIME. - traZODone (DESYREL) 50 mg tablet Take 1 tablet by mouth daily at bedtime. - CPAP Initiate Auto PAP @ 5-20 cm of water with humidification. Mask (per patient preference) optional chin strap (if indicated) , filters, tubing, humidifier and lifetime supplies. - nicotine (NICODERM) 21 mg/24 hr Apply 1 Patch as directed every 24 hours. - fluticasone (FLONASE ALLERGY RELIEF) 50 mcg/actuation nasal spray Use 1 [place] in each nostril once daily. - cetirizine (ZYRTEC) 10 mg tablet Take 10 mg by mouth once daily. - ergocalciferol 50,000 unit capsule (VITAMIN D2, DRISDOL) Take 1 capsule by mouth one time a week. - VYVANSE 60 mg capsule 1 capsule once daily. I have interviewed and examined the patient. I have reviewed the medical record and/or the pre-anesthesia evaluation, pertinent labs, and test results. This contains updated information obtained within 48 hours of Surgery/Procedure. SIGNATURE: Get Ramirez MD PATIENT NAME: Citlali Beckwith DATE: February 11, 2020 TIME: 7:06 AM CSN: [id number] [facility] NURSING PROGon 02-11-2020 NURSING PROG HNO ID: [id number] Author: Radha BurrRn) CARINA Mcarthur Service: Nursing Author Type: Registered Nurse Type: Nursing Progress Note Filed: 02/11/2020 9:48 AM Note Text: 09 report from Rama LIM in PACU. Pt shivering, Demerol given per Rama LIM, will continue to monitor. Pt. c/o 9/10 abd pain. R wrist drsg DANDI. Abd lap sites x3 PATIENT SERVICE REPRESENTATIVE no drng with skin glue. Joseline pad in place mesh panties applies. PIV DANDI. VSS no s/sx of distress. 0927 pt continues to shiver, Demerol given. 0945 pt c/o pain 3/10 denies pain meds @ this time. Takes PO ice chips denies nausea. [facility] NURSING PROG HNO ID: [id number] Author: Leslie BurrRn) CARINA Madsen Service: ? Author Type: Registered Nurse Type: Nursing Progress Note Filed: 02/11/2020 8:34 AM Note Text: DR CAMPBELL END 0822. DR CORONADO START 0832 [facility] OPERATIVE NOon 02-11-2020 OPERATIVE NO HNO ID: [id number] Author: Asif Coronado Service: Orthopaedic Surgery Author Type: Physician Type: Operative Report Filed: 02/11/2020 9:09 AM Note Text: [place] [id number] [place] OPERATIVE REPORT NAME:Citlali Beckwith [id number] DATE: February 11, 2020 AGE: [age] year old SURGEON 1: Asif Coronado M.D. OPERATION: Right carpal tunnel release, open. ANESTHESIA: MAC with local. PREOPERATIVE DIAGNOSIS: Right carpal tunnel syndrome. POSTOPERATIVE DIAGNOSIS: Right carpal tunnel syndrome. OPERATIVE INDICATIONS: This is a pleasant 34 year old female who had worsening, numbness, and tingling. Her electrodiagnostic showed Mild carpal tunnel syndrome. She exhausted conservative management and in the office, we discussed the risks, benefits, alternatives, and potential complications involving carpal tunnel release and she wished to pursue surgical intervention. She hoped to have her surgery at the same time as her tubal. Thus, a second note by Dr. Campbell was independently completed. OPERATIVE FINDINGS: Consistent with postoperative diagnosis. OPERATIVE PROCEDURE: On February 11, 2020, the patient was clearly identified in the preoperative area and marked accordingly on the Right palm by myself. She was taken to the operative suite and had her set up for her STITCHDOWN TOE FORMER procedure. At the completion of her tubal ligation, she was then positioned in the supine position with an armboard on the Right. She did not require joseline-operative abx. Anesthesia assumed care of the head and neck for the remainder of the case and continued her anesthetic. All other bony landmarks were appropriately padded in standard fashion. The upper extremity had a well-padded upper brachium tourniquet applied with Webril padding and set at 250 mmHg, but not yet inflated. The arm was then sterilely prepped and draped in standard fashion. An appropriate time-out was conducted for this portion of her procedures and all in the room were in agreement, signed consent form was on the chart. The upper extremity was exsanguinated with an Esmarch bandage and the tourniquet was applied at 250 mmHg. Local anesthetic was provided at the palm and wrist with 1% lidocaine plain and 0.25% Marcaine plain in a 1:1 ratio for total of 4 mL. A longitudinal incision was made with in line with the third web space from 1 cm distal of the wrist crease to Faustin's cardinal line. I used Aguila Rakes to retract the soft tissues. Bipolar electrocautery was used for hemostasis. I bluntly dissected down with Littler scissors to distal edge of the transverse carpal ligament until a flash of fat was noted. I directly divided distal edge of the transverse carpal ligament with a #15 blade. Attention was then focused on the proximal portion and I used Littler scissors to bluntly dissect off the volar surface of the transverse carpal ligament. A carpal tunnel and median nerve protection guide was slid directly under the ligament for dilation and a second time for appropriate positioning, this was passed freely without any resistance. Subsequently, I selected a mini meniscotome Craig blade and slid this in the protective guide, completely dividing the transverse carpal ligament. Aguila rakes were used to view up the wound to visualize for complete release and a Helton elevator was used to palpate for complete release. At this point, the tourniquet was taken down and hemostasis was observed. The wound was copiously irrigated with normal saline and I closed with 3-0 nylons in horizontal mattress fashion for a total of 3. Xeroform gauze, sterile 4 x 4 gauze, Webril padding, and a Bias roll was used for final bandage. There were no complications during the procedure. The patient was safely awoken and transferred to the Postanesthetic Care Unit in stable condition. Incision/Procedure Start Time: 7:58 AM Incision Close/Procedure End Time: 8:54 AM ESTIMATED BLOOD LOSS: None. DRAINS: None SPECIMENS: None. Asif Coronado M.D. [facility] OPERATIVE NO HNO ID: [id number] Author: Carlie Campbell Service: Gynecology Author Type: Physician Type: Operative Report Filed: 02/11/2020 8:34 AM Note Text: STITCHDOWN TOE FORMER OPERATIVE/PROCEDURE REPORT LOG ID: [id number] Surgery/Procedure Date: 02/11/2020 Incision/Procedure Start Time: 7:58 AM Incision Close/Procedure End Time: 0822 Surgeon(s)/Proceduralist(s ) and [employer](s): Surgeon(s) and Role: Panel 1: * Carlie Campbell - Primary Panel 2: * Asif Coronado - Primary Informed Consent: Informed Consent obtained and on the chart Procedure: Laparoscopy Salpingectomy- bilateral Pre-Op/Pre-Procedure Diagnosis: sterilization request Post-Op/Post-Procedure Diagnosis: Same as pre-op diagnosis Antibiotic: None Procedure Details: Patient was taken to the operating room where the sign-in and time out were completed. General anesthesia was induced and found to be adequate. Once anesthesia was found to be adequate, her arms were then tucked to the side, she was placed in dorsal lithotomy position her legs were placed in Yellowfin stirrups with careful attention not to hyperflex or hyperextend the knees or hips. SCDs were placed and turned on for DVT prophylaxis. Exam under anesthesia was performed. Patient was prepped and draped in the usual fashion. The urinary bladder was drained with a straight catheter. A weighted speculum was placed in the patient's vagina with clear visualization of the cervix. The anterior lip of the cervix was grasped with a single tooth tenaculum. and the cervix was serially dilated to allow placement of a Rumy device was placed in the uterus and left in place throughout the laparoscopic portion of the procedure. Attention was turned to the abdomen with clean sterile gloves. Prior to making the incision the area was injected with 0.5%. , A 5 mm intraumbilical incision was made with the knife. and An optical visualization trochar was placed into the peritoneal cavity while the anterior abdominal wall was elevated. The abdomen was insufflated with CO2 gas. The lower abdominal wall was transilluminated and an avascular site was selected in the Left lower abdominal quadrant. Under direction visualization the following trochars were placed LLQ 5 mm . Through these sites a 5 mm trochar and sleeve were inserted under direct visualization. Inferior to the trochar site the Alligator grasping forceps were placed under direct visualization Findings: Uterus: Normal Right Ovary: Normal Left Ovary: Normal Right Fallopian Tube: Normal Left Fallopian Tube: Normal Posterior cul-de-sac: Normal Appendix: Not seen Liver: Seen: normal Other: n/a Additional techniques Include: SALPINGECTOMY: An atraumatic grasping forceps was passed through the Left port and used to elevate the Left tube away from the sidewall. Placing the LigaSure across the fallopian tube. The LigaSure was used to serially transect the fallopian tube from the mesosalpinx. The tube was then transected from the uterus. The same procedure was performed on the contralateral side. All skin incisions were closed. The skin was closed with skin glue.. The instruments were removed from the vagina. Sign-out was completed. IV Fluids: 800 Urine Output: 100 mL Estimated Blood Loss: 10 mL Specimens: Left fallopian tube and Right fallopian tube Implantable Devices: None Drains: None Complications: None A digital sweep of the vaginal canal was performed by Carlie Campbell MD and it was ascertained that no instruments or other foreign bodies are retained within the cavity. Sponge, lap, and needle counts were correct times two and the patient was taken to the recovery room with stable vital signs after tolerating the procedure well. I/primary surgeon/proceduralist performed the procedure with assistance. SIGNATURE: Carlie Campbell MD PATIENT NAME: Citlali Beckwith DATE: February 11, 2020 TIME: 8:29 AM PAGER/CONTACT #: Normal [facility] SURGICAL PATHOLOGYon 020 SURGICAL PATHOLOGY Specimen originated from [facility] Specimen #: [id number] Submitting Physician: Carlie Campbell M.D. FINAL DIAGNOSIS Fallopian tubes, bilateral salpingectomy - Two fallopian tubes, each with complete cross section and fimbriated end represented. NAYA/tara 02/15/2020 Kaden Proctor M.D. (Electronic Signature) SPECIMEN SUBMITTED A: BILATERAL FALLOPIAN TUBES CLINICAL DATA DESIRES STERILIZATION LAPAROSCOPIC BILATERAL SALPINGECTOMY GROSS DESCRIPTION Received in formalin labeled bilateral fallopian tubes are two undesignated fallopian tubes with attached fimbriated ends. Fallopian tube #1 measures 6 cm in length x 0.4 cm in diameter without paratubal cysts. The fimbriated end is scant and villous. Sectioning reveals a pinpoint lumen. Fallopian tube #2 measures 6 cm in length x 0.5 cm in diameter. The fimbriated end is scant and villous without paratubal cysts. Sectioning reveals an unremarkable pinpoint lumen. Credit Risk Analytics Manager sections are submitted as follows: A1 fallopian tube #1 fimbriated end bisected and mid cross section, A2 fallopian tube #2 fimbriated end bisected and mid cross section. OLS/td 02/11/2020 Gross examination performed at [facility], [address] [place] [id number] Date of Report: 02/15/2020 Date of Procedure: 02/11/2020 Date of Receipt: 02/11/2020 Submitted by: Carlie Campbell M.D. Location: [facility] Diagnostic interpretation performed at [facility], [facility] [place] [address]. IA Number: [id number] [facility] JESICAAndie 02-04-2020 CNPN Telephone (PREANME) -- LUIS FERNANDOCITLALI Reid ([id number]) 1985 F Date Time Provider Department 02/04/20 FLAVIO RIVERA (RN) PREANME During your visit today, we recorded the following information about you: Flavio Rivera RN, RN 02/04/2020 10:37 AM Addendum Site clarification: Per patient she is having surgery to right hand by Dr. Coronado on 02/11/2020. Danyelle Fleming Ma 02/05/2020 9:02 AM Signed I called and spoke with patient. She would like to have right hand carpal tunnel release. Lian at [facility] has been notified. Allergies As of Date: 02/04/2020 Noted Allergy Reaction ADHESIVE TAPE (ROSINS) 08/14/2013 2 - Rash ASPIRIN 08/14/2013 Comments: Unable to take aspirin after having gastric bypass surgery EFFEXOR (VENLAFAXINE) 05/01/2017 14 - Other: See Comments Comments: Dry heaves, shaking uncotrollable LATEX 07/09/2007 2 - Rash NSAIDS (NON-STEROIDAL ANTI-INFLAM*07/05/2014 Comments: due to gastric bypass WELLBUTRIN (BUPROPION HCL) 11/28/2006 14 - Other: See Comments Comments: Seizure-was on overdose. Has taken it since then and done fine. Date Reviewed: 02/03/2020 Reviewed by: Jael Marie RN, RN - Fully Assessed Reason for Visit: Preparations For Surgery [898] Prescriptions as of 02/04/2020 Sig: ELURYNG 0.12 MG-0.015 MG/24 H* INSERT 1 RING VAGINALLY DI* CPAP Modem access to [place] [facility]* GABAPENTIN 300 MG CAPSULE Take 3 capsules by mouth maidna* TRAZODONE 50 MG TABLET Take 1 tablet by mouth daily * CPAP Initiate Auto PAP @ 5-20 cm o* NICOTINE 21 MG/24 HR DAILY TR* Apply 1 Patch as directed lesli* FLUTICASONE PROPIONATE 50 MCG* Use 1 [place] in each nostril o* CETIRIZINE 10 MG TABLET Take 10 mg by mouth once madina* ERGOCALCIFEROL (VITAMIN D2) 1* Take 1 capsule by mouth one t* VYVANSE 60 MG CAPSULE 1 capsule once daily. Problem List As Of Date 02/04/2020 Noted Resolved ADJUSTMENT REACTION NOS [F43.20] 12/19/2006 07/14/2007 Seborrheic dermatitis, unspecified [L21.9] 06/12/2007 08/29/2016 Attention deficit disorder [F98.8] 07/14/2007 08/29/2016 More... Adjustment disorder with depressed mood [F43.21]07/14/2007 08/29/2016 Tobacco use disorder [F17.200] 08/26/2007 09/13/2015 More... Routine general medical examination at [facility]*06/30/2009 09/13/2015 Class: Chronic More... Routine gynecological examination [Z01.419] 06/30/2009 09/13/2015 Class: Chronic More... Morbid obesity (HCC) [E66.01] 06/30/2009 09/13/2015 Insomnia [G47.00] 06/30/2009 09/13/2015 Thrombosed external hemorrhoid [K64.5] 08/14/2013 09/13/2015 Recurrent UTI (urinary tract infection) complic*07/22/2014 08/29/2016 More... Kidney stones [N20.0] 07/22/2014 09/13/2015 Marijuana abuse [F12.10] 04/27/2015 08/29/2016 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] 09/08/2015 12/04/2019 History of delivery, currently pregnan*09/08/2015 05/07/2016 More... History of recurrent UTI (urinary tract infecti*09/08/2015 More... History of herpes genitalis [Z86.19] 09/08/2015 More... History of depression [Z86.59] 09/08/2015 More... Tobacco use in [O99.330] 09/08/2015 08/29/2016 More... History of marijuana use [Z87.898] 09/08/2015 More... H/O macrosomia in in prior , cu*09/08/2015 08/29/2016 More... Patient requested diagnostic testing [Z01.89] 09/08/2015 11/21/2015 More... History of kidney stones [Z87.442] 09/08/2015 09/13/2015 Trichomonal vaginitis during in secon*11/28/2015 08/29/2016 More... Urgency of urination [R39.15] 01/19/2016 08/29/2016 Frequency of micturition [R35.0] 01/19/2016 08/29/2016 UTI (urinary tract infection) in , ant*02/16/2016 02/16/2016 RLS (restless legs syndrome) [G25.81] 08/29/2016 Iron deficiency [E61.1] 08/29/2016 12/04/2019 Anemia due to vitamin B12 deficiency [D51.9] 08/29/2016 Anemia [D64.9] 08/07/2017 More... Cervical high risk HPV (human papillomavirus) t*08/06/2018 More... FLOR (obstructive sleep apnea) [G47.33] 10/28/2019 Encounter Status:Closed by WENDIE RIVERA on 02/04/20 [facility] HOSPon 12-11-2019 HOSP Patient:Citlali Beckwith MRN: Height:5' 5.5(1.664 m) Weight:207 lb 8 oz (94.121 kg) Outpatient Medications as of 02/11/20: ELURYNG 0.12-0.015 mg/24 hr vaginal ring CPAP gabapentin (NEURONTIN) 300 mg capsule traZODone (DESYREL) 50 mg tablet CPAP nicotine (NICODERM) 21 mg/24 hr fluticasone (FLONASE ALLERGY RELIEF) 50 mcg/actuation nasal spray cetirizine (ZYRTEC) 10 mg tablet ergocalciferol 50,000 unit capsule (VITAMIN D2, DRISDOL) VYVANSE 60 mg capsule Admission/Clinic Administered Medications as of 02/11/20: lidocaine 10 mg/mL (1 %) 1-2 mg injection (XYLOCAINE) lactated ringers infusion scopolamine 1 mg over 3 days 1 Patch (TRANSDERM-SCOP) Problem List: History of recurrent UTI (urinary tract infection) [Z87.440] History of herpes genitalis [Z86.19] History of depression [Z86.59] History of marijuana use [Z87.898] RLS (restless legs syndrome) [G25.81] Anemia due to vitamin B12 deficiency [D51.9] Anemia [D64.9] Cervical high risk HPV (human papillomavirus) test positive [R87.810] FLOR (obstructive sleep apnea) [G47.33] Allergies: Adhesive Tape (Rosins) Aspirin Effexor [Venlafaxine] Latex Nsaids (Non-Steroidal Anti-Inflammatory Drug) Wellbutrin [Bupropion Hcl] Date Verified: 02/11/20 Lab Values Lab Value Units Date High Low NUHA* 40.8 % 01/18/2020 46.0 36.0 Progress Notes ([facility]): Flavio Rivera RN, RN 02/04/2020 10:37 AM Addendum Site clarification: Per patient she is having surgery to right hand by Dr. Coronado on 02/11/2020. Previous Version Danyelle Fleming Ma 02/05/2020 9:02 AM Signed I called and spoke with patient. She would like to have right hand carpal tunnel release. Lian at [facility] scheduling has been notified. Progress Notes ([facility] [employer] [employer] [facility]): Sarah Martinez RN 02/03/2020 8:51 AM Signed Scheduled for tubal 02/11/20. Planning to continue control after surgery still. Patient has been identified by name and date of : Yes Pending Prescriptions Disp Refills ELURYNG 0.12 MG-0.015 MG/24 HR VAGINAL RING 3 Each 3 Sig: INSERT 1 RING VAGINALLY DIRECTED. REMOVE AFTER 3 WEEKS AND WAIT 7 DAYS BEFORE INSERTING A NEW RING OSCAR: Yes RX INSTRUCTIONS: Patient aware RX will be sent to pharmacy. No need to notify patient. Sarah Martinez RN [facility] .Auto Diffon 04-01-2018 Ammonia (P) [Mass/Vol] 0.40 10 3/mcL Normal 0.15-1.00 [facility] ([place]) Comment on above: Performed By: #### B MP, GFR, LAC #### [place] [address] #### CBC, ADIFF, ANEU #### [address] [address] Basophils (Bld) [#/Vol] 0.00 10 3/mcL Normal 0.00-0.19 [facility] ([place]) Comment on above: Performed By: #### B MP, GFR, LAC #### [place] [address] #### CBC, ADIFF, ANEU #### [address] [address] Basophils/100 WBC (Bld) 0.6 % Normal 0.0-2.5 [facility] ([place]) Comment on above: Performed By: #### B MP, GFR, LAC #### [place] [address] #### CBC, ADIFF, ANEU #### [address] [address] Eosinophils (Bld) [#/Vol] 0.20 10 3/mcL Normal 0.00-0.40 [facility] ([place]) Comment on above: Performed By: #### B MP, GFR, LAC #### [place] [address] #### CBC, ADIFF, ANEU #### [address] [address] Eosinophils/100 WBC (Bld) 2.5 % Normal 0.0-7.0 [facility] ([place]) Comment on above: Performed By: #### B MP, GFR, LAC #### [place] [address] #### CBC, ADIFF, ANEU #### [address] [address] Lymphocytes (Bld) [#/Vol] 1.10 10 3/mcL Normal 0.77-3.85 Formerly [facility] ([place]) Comment on above: Performed By: #### B MP, GFR, LAC #### [address] [address] #### CBC, ADIFF, ANEU #### [address] [address] Lymphocytes/100 WBC (Bld) 17.7 % Normal 10.0-50.0 Formerly [facility] ([place]) Comment on above: Performed By: #### B MP, GFR, LAC #### [place] [address] #### CBC, ADIFF, ANEU #### [address] [address] Monocytes/100 WBC (Bld) 7.2 % Normal 1.7-13.0 Formerly [facility] ([place]) Comment on above: Performed By: #### B MP, GFR, LAC #### [place] [address] #### CBC, ADIFF, ANEU #### [address] [address] Neutrophils/100 WBC (Bld) 72.0 % Normal 37.0-80.0 Formerly [facility] ([place]) Comment on above: Performed By: #### B MP, GFR, LAC #### [place] [address] #### CBC, ADIFF, ANEU #### [address] [address] .GFRon 04-01-2018 GFR Non- 95 ml/min/1.73sqm Normal Formerly [facility] ([place]) Comment on above: Result Comment: GFR Population mean for , Non- Americans Ages 20-29 = 116 mL/min/1.73 sq.m. Ages 30-39 = 107 mL/min/1.73 sq.m. Ages 40-49 = 99 mL/min/1.73 sq.m. Ages 50-59 = 93 mL/min/1.73 sq.m. Ages 60-69 = 85 mL/min/1.73 sq.m. Ages 70+ = 75 mL/min/1.73 sq.m. Chronic Kidney Disease: Less than 60 mL/min/1.73 square meters End Stage Renal Disease: Less than 15 mL/min/1.73 square meters Performed By: #### B MP, GFR, LAC #### [place] [address] #### CBC, ADIFF, ANEU #### [address] [address] GFR 115 ml/min/1.73sqm Normal Formerly [facility] ([place]) Comment on above: Result Comment: GFR Population mean for , Non- Americans Ages 20-29 = 116 mL/min/1.73 sq.m. Ages 30-39 = 107 mL/min/1.73 sq.m. Ages 40-49 = 99 mL/min/1.73 sq.m. Ages 50-59 = 93 mL/min/1.73 sq.m. Ages 60-69 = 85 mL/min/1.73 sq.m. Ages 70+ = 75 mL/min/1.73 sq.m. Chronic Kidney Disease: Less than 60 mL/min/1.73 square meters End Stage Renal Disease: Less than 15 mL/min/1.73 square meters Performed By: #### B MP, GFR, LAC #### [place] [address] #### CBC, ADIFF, ANEU #### [address] [address] .NEUABSon 04-01-2018 Neutrophils (Bld) [#/Vol] 4.50 10 3/mcL Normal 2.85-6.16 Formerly [facility] ([place] Comment on above: Performed By: #### B MP, GFR, LAC #### [place] [address] #### CBC, ADIFF, ANEU #### [address] [address] BMPon 04-01-2018 Calcium [Mass/Vol] 8.1 mg/dL Low 8.4-10.2 [facility] ([place]) Comment on above: Performed By: #### B MP, GFR, LAC #### [address] [address] #### CBC, ADIFF, ANEU #### [address] [address] Chloride [Moles/Vol] 106 mmol/L Normal 98-107 [facility] ([place]) Comment on above: Performed By: #### B MP, GFR, LAC #### [address] [address] #### CBC, ADIFF, ANEU #### [address] [address] CO2 [Moles/Vol] 28 mmol/L Normal 22-29 [facility]ly [facility] ([place] Comment on above: Performed By: #### B MP, GFR, LAC #### [address] [address] #### CBC, ADIFF, ANEU #### [address] [address] Creatinine [Mass/Vol] 0.71 mg/dL Normal 0.55-1.02 [facility] ([place]) Comment on above: Performed By: #### B MP, GFR, LAC #### [place] [address] #### CBC, ADIFF, ANEU #### [address] [address] Electrolyte Balance 9.0 mEq/L Normal [facility] ([place]) Comment on above: Performed By: #### B MP, GFR, LAC #### [address] [address] #### CBC, ADIFF, ANEU #### [address] [address] Glucose [Mass/Vol] 82 mg/dL Normal 70-105 [facility] ([place]) Comment on above: Performed By: #### B MP, GFR, LAC #### [address] [address] #### CBC, ADIFF, ANEU #### [address] [address] Potassium [Moles/Vol] 4.2 mmol/L Normal 3.5-5.1 [facility] ([place] Comment on above: Performed By: #### B MP, GFR, LAC #### [address] [address] #### CBC, ADIFF, ANEU #### [address] [address] Sodium [Moles/Vol] 143 mmol/L Normal 136-145 [facility] ([place]) Comment on above: Performed By: #### B MP, GFR, LAC #### [address] [address] #### CBC, ADIFF, ANEU #### [address] [address] Urea nitrogen [Mass/Vol] 20 mg/dL High 7-18 [facility] ([place] Comment on above: Performed By: #### B MP, GFR, LAC #### [place] [address] #### CBC, ADIFF, ANEU #### [address] [address] Urea nitrogen/Creatinine [Mass ratio] 28 ratio High 7 [facility] ([place] Comment on above: Performed By: #### B MP, GFR, LAC #### [place] [address] #### CBC, ADIFF, ANEU #### [address] [address] CBCon 04-01-2018 Erythrocyte distribution width (RBC) [Ratio] 13.3 % Normal 11.5-14.5 [facility] ([place] Comment on above: Performed By: #### B MP, GFR, LAC #### [address] [address] #### CBC, ADIFF, ANEU #### [address] [address] Hematocrit (Bld) [Volume fraction] 37.5 % Normal 37.0-47.0 [facility] ([place] Comment on above: Performed By: #### B MP, GFR, LAC #### [place] [address] #### CBC, ADIFF, ANEU #### [address] [address] Hemoglobin (Bld) [Mass/Vol] 12.8 G/dL Normal 12.0-16.0 [facility] ([place] Comment on above: Performed By: #### B MP, GFR, LAC #### [place] [address] #### CBC, ADIFF, ANEU #### [address] [address] MCH (RBC) [Entitic mass] 31.0 pg Normal 27.0-31.2 [facility] ([place] Comment on above: Performed By: #### B MP, GFR, LAC #### [place] [address] #### CBC, ADIFF, ANEU #### [address] [address] MCHC (RBC) [Mass/Vol] 34.2 G/dL Normal 33.0-37.0 [facility] ([place] Comment on above: Performed By: #### B MP, GFR, LAC #### [place] [address] #### CBC, ADIFF, ANEU #### [address] [address] MCV (RBC) [Entitic vol] 90.7 fL Normal 80.0-94.0 [facility] ([place] Comment on above: Performed By: #### B MP, GFR, LAC #### [place] [address] #### CBC, ADIFF, ANEU #### [address] [address] Platelet mean volume (Bld) [Entitic vol] 8.4 fL Normal 7.4-10.4 [facility] ([place] Comment on above: Performed By: #### B MP, GFR, LAC #### [place] [address] #### CBC, ADIFF, ANEU #### [address] [address] Platelets (Bld) [#/Vol] 182 10 3/mcL Normal 130-400 [facility] ([place] Comment on above: Performed By: #### B MP, GFR, LAC #### [place] [address] #### CBC, ADIFF, ANEU #### [address] [address] RBC (Bld) [#/Vol] 4.14 10 6/mcL Low 4.20-5.40 [facility] ([place]) Comment on above: Performed By: #### B MP, GFR, LAC #### [place] [address] #### CBC, ADIFF, ANEU #### [address] [address] WBC (Bld) [#/Vol] 6.20 10 3/mcL Normal 4.60-10.80 [facility] ([place]) Comment on above: Performed By: #### B MP, GFR, LAC #### [place] [address] #### CBC, ADIFF, ANEU #### [address] [address] [address] ABD/PELVIS W/ IV CONTRAST ONLYon 04-01-2018 CT ABD/PELVIS W/ IV CONTRAST ONLY ORIGINAL CT Abdomen and Pelvis with IV contrast enhancement Clinical Statement: r/o strangulated hernia, abdominal pain, supraumbilical lump, gastric bypass surgery 2011 Comparison: None This exam was performed according to our departmental dose-optimization program which includes automated exposure control, adjustment of the mA and/or kVp according to patient size and/or use of iterative reconstruction technique where applicable. Findings: A somewhat heterogeneous appearance of the liver could be related to timing of contrast enhancement. The gallbladder, pancreas, and spleen are unremarkable. No bowel dilatation, ascites, or pneumoperitoneum is seen. The appendix is normal. No abdominal or pelvic adenopathy is noted. There is a 2.6 cm ventral hernia containing omental fat with some soft tissue stranding. There is no bowel herniation. No aortic aneurysm. The kidneys show no hydronephrosis. There is a 6 mm nonobstructing stone in the inferior pole of the RIGHT kidney. The partially distended urinary bladder is grossly unremarkable. IMPRESSION: Small 2.6 cm ventral hernia containing omental fat with some soft tissue stranding may be due to fat infarction. No bowel herniation. Otherwise, no acute process. Interpreted By: Sotero Herrera DO Preliminary Report By: Sotero Herrera DO Electronically Signed By: Sotero Herrera DO Dictated Date: 04/01/2018 12:14:02 PM Prelim Date: 04/01/2018 12:14:02 PM Sign Date: 04/01/2018 12:20:12 PM Normal [facility] ([place]) LACon 04-01-2018 Lactic Acid Lvl 0.6 mmol/L Normal 0.4-2.0 [facility]ly [facility] ([place] Comment on above: Performed By: #### B MP, GFR, LAC #### [place] [address] #### CBC, ADIFF, ANEU #### [address] [address] PREGUon 04-01-2018 HCG ( test) Ql (U) Negative Normal [facility] ([place] Comment on above: Performed By: #### P REGU #### [address] [address] test (u) int HCG not detected. [facility] ([place] Comment on above: Performed By: #### P REGU #### [address] [address] Culture, urine Bacteria identified Cx Nom (U) Klebsiella pneumoniae sp pneum [facility] Work Phone: Vital Signs Date Time Vital Sign Value Performing Clinician Facility 09-14-2024 18:49-0400 Body mass index (BMI) [Ratio] 34.28 kg/m2 Paul Kendrick MD Work Phone: [facility] 09-14-2024 18:49-0400 Body weight 93.44 kg Paul Kendrick MD Work Phone: [facility] 09-14-2024 18:49-0400 Diastolic blood pressure 64 mm[Hg] Paul Kendrick MD Work Phone: [facility] 09-14-2024 18:49-0400 Heart rate 95 /min Paul Kendrick MD Work Phone: [facility] 09-14-2024 18:49-0400 SaO2% (BldA) [Mass fraction] 98 % Paul Kendrick MD Work Phone: [facility] 09-14-2024 18:49-0400 Systolic blood pressure 122 mm[Hg] Paul Kendrick MD Work Phone: [facility] 09-01-2024 11:48-0400 Body mass index (BMI) [Ratio] 34.45 kg/m2 Marry Suppan CUSTOM FEED MILL OPERATOR HELPER.CERTIFIED CODING SPECIALIST Work Phone: [facility] 09-01-2024 11:48-0400 Body weight 93.89 kg Marry Suppan CUSTOM FEED MILL OPERATOR HELPER.CERTIFIED CODING SPECIALIST Work Phone: [facility] 09-01-2024 11:48-0400 Diastolic blood pressure 78 mm[Hg] Marry Suppan CUSTOM FEED MILL OPERATOR HELPER.CERTIFIED CODING SPECIALIST Work Phone: [facility] 09-01-2024 11:48-0400 Heart rate 84 /min Marry Suppan CUSTOM FEED MILL OPERATOR HELPER.CERTIFIED CODING SPECIALIST Work Phone: [facility] 09-01-2024 11:48-0400 SaO2% (BldA) [Mass fraction] 98 % Marry Suppan CUSTOM FEED MILL OPERATOR HELPER.CERTIFIED CODING SPECIALIST Work Phone: [facility] 09-01-2024 11:48-0400 Systolic blood pressure 118 mm[Hg] Marry Suppan CUSTOM FEED MILL OPERATOR HELPER.CERTIFIED CODING SPECIALIST Work Phone: [facility] 05-05-2024 08:22-0500 Body height 165.[address] Paul Kendrick MD Work Phone: [facility] 05-05-2024 08:22-0500 Body mass index (BMI) [Ratio] 34 kg/m2 Dr. Paul Kendrick MD Work Phone: 6(516)194-949535 [place] [address] 05-05-2024 08:22-0500 Body weight 92.[address] Paul Kendrick MD Work Phone: 8(389)694-250835 [place] [address] 03-03-2024 13:09-0500 Body temperature 98.1 [degF] Dr. Paul Kendrick MD Work Phone: 6(510)730-373535 [place] [address] 03-03-2024 13:09-0500 Diastolic blood pressure 71 mm[Hg] Dr. Paul Kendrick MD Work Phone: 7(991)067-614535 [place] [address] 03-03-2024 13:09-0500 Heart rate 81 /min Dr. Paul Kendrick MD Work Phone: 8(504)263-170235 [place] [address] 03-03-2024 13:09-0500 Respiratory rate 19 /min Dr. Paul Kendrick MD Work Phone: 2(671)773-138535 [place] [address] 03-03-2024 13:09-0500 SaO2% (BldA) [Mass fraction] 99 % Dr. Paul Kendrick MD Work Phone: 5(285)989-858635 [place] [address] 03-03-2024 13:09-0500 Systolic blood pressure 133 mm[Hg] Dr. Paul Kendrick MD Work Phone: 1(127)749-265035 [place] [address] 03-03-2024 09:13-0500 Body mass index (BMI) [Ratio] 33.8 kg/m2 Dr. Paul Kendrick MD Work Phone: 3(184)373-535935 [place] [address] 03-03-2024 09:13-0500 Body weight 92.[address] Paul Kendrick MD Work Phone: 0(200)713-175735 [place] [address] 01-13-2024 16:01-0400 Body mass index (BMI) [Ratio] 33.45 kg/m2 Marry Paredes CUSTOM FEED MILL OPERATOR HELPER.CERTIFIED CODING SPECIALIST Work Phone: 9(031)020-859794 [place] [address] 01-13-2024 16:01-0400 Body weight 91.17 kg Marry Paredes APRN.CERTIFIED CODING SPECIALIST Work Phone: 0(691)841-316994 [place] [address] 01-13-2024 16:01-0400 Diastolic blood pressure 76 mm[Hg] Marry Suppan CUSTOM FEED MILL OPERATOR HELPER.CERTIFIED CODING SPECIALIST Work Phone: [facility] 01-13-2024 16:01-0400 Heart rate 71 /min Marry Suppan CUSTOM FEED MILL OPERATOR HELPER.CERTIFIED CODING SPECIALIST Work Phone: [facility] 01-13-2024 16:01-0400 Respiratory rate 16 /min Marry Suppan CUSTOM FEED MILL OPERATOR HELPER.CERTIFIED CODING SPECIALIST Work Phone: [facility] 01-13-2024 16:01-0400 SaO2% (BldA) [Mass fraction] 98 % Marry Suppan CUSTOM FEED MILL OPERATOR HELPER.CERTIFIED CODING SPECIALIST Work Phone: [facility] 01-13-2024 16:01-0400 Systolic blood pressure 120 mm[Hg] Marry Suppan CUSTOM FEED MILL OPERATOR HELPER.CERTIFIED CODING SPECIALIST Work Phone: [facility] 05-17-2023 13:20-0500 Body weight 89.09 kg Evelin Haury CUSTOM FEED MILL OPERATOR HELPER.CERTIFIED CODING SPECIALIST Work Phone: [facility] 05-17-2023 13:20-0500 Diastolic blood pressure 76 mm[Hg] Evelin Haury CUSTOM FEED MILL OPERATOR HELPER.CERTIFIED CODING SPECIALIST Work Phone: [facility] 05-17-2023 13:20-0500 Systolic blood pressure 110 mm[Hg] Evelin Haury CUSTOM FEED MILL OPERATOR HELPER.CERTIFIED CODING SPECIALIST Work Phone: [facility] 05-15-2023 09:09-0500 Body temperature 98.49 [degF] Krislyn Aberegg PA Work Phone: [facility] 05-15-2023 09:09-0500 Body weight 88.72 kg Krislyn Aberegg PA Work Phone: [facility] 05-15-2023 09:09-0500 Diastolic blood pressure 78 mm[Hg] Krislyn Aberegg PA Work Phone: [facility] 05-15-2023 09:09-0500 Heart rate 97 /min Krislyn Aberegg PA Work Phone: [facility] 05-15-2023 09:09-0500 Respiratory rate 21 /min Krislyn Aberegg PA Work Phone: [facility] 05-15-2023 09:09-0500 SaO2% (BldA) [Mass fraction] 98 % Krislyn Aberegg PA Work Phone: [facility] 05-15-2023 09:09-0500 Systolic blood pressure 100 mm[Hg] Krislyn Aberegg PA Work Phone: [facility] 10-03-2022 10:35-0400 Body height 165.1 cm Paul Kendrick MD Work Phone: [facility] 10-03-2022 10:35-0400 Body weight 83.01 kg Paul Kendrick MD Work Phone: [facility] 10-03-2022 10:35-0400 Diastolic blood pressure 68 mm[Hg] Paul Kendrick MD Work Phone: [facility] 10-03-2022 10:35-0400 Heart rate 81 /min Paul Kendrick MD Work Phone: [facility] 10-03-2022 10:35-0400 SaO2% (BldA) [Mass fraction] 98 % Paul Kendrick MD Work Phone: [facility] 10-03-2022 10:35-0400 Systolic blood pressure 108 mm[Hg] Paul Kendrick MD Work Phone: [facility] 06-05-2022 14:44-0500 Body height 165.1 cm Tomasa Alarcon APRN.CNM Work Phone: [facility] 06-05-2022 14:44-0500 Body weight 81.19 kg Tomasa Alarcon CUSTOM FEED MILL OPERATOR HELPER.CNM Work Phone: [facility] 06-05-2022 14:44-0500 Diastolic blood pressure 70 mm[Hg] Tomasa Alarcon CUSTOM FEED MILL OPERATOR HELPER.CNM Work Phone: [facility] 06-05-2022 14:44-0500 Systolic blood pressure 110 mm[Hg] Tomasa Alarcon CUSTOM FEED MILL OPERATOR HELPER.CNM Work Phone: [facility] 04-04-2022 14:06-0500 Body height 165.1 cm Paul Kendrick MD Work Phone: [facility] 04-04-2022 14:06-0500 Body weight 82.1 kg Paul Kendrick MD Work Phone: [facility] 04-04-2022 14:06-0500 Diastolic blood pressure 68 mm[Hg] Paul Kendrick MD Work Phone: [facility] 04-04-2022 14:06-0500 Heart rate 89 /min Paul Kendrick MD Work Phone: [facility] 04-04-2022 14:06-0500 SaO2% (BldA) [Mass fraction] 98 % Paul Kendrick MD Work Phone: [facility] 04-04-2022 14:06-0500 Systolic blood pressure 112 mm[Hg] Paul Kendrick MD Work Phone: [facility] 02-09-2022 10:48-0500 Body weight 81.28 kg Asia Miller MD Work Phone: [facility] 02-09-2022 10:48-0500 Diastolic blood pressure 64 mm[Hg] Asia Miller MD Work Phone: [facility] 02-09-2022 10:48-0500 Systolic blood pressure 100 mm[Hg] Asia Miller MD Work Phone: [facility] 10-03-2021 13:43-0400 Body weight 83.01 kg NA Selby PA-C Work Phone: [facility] 10-03-2021 13:43-0400 Diastolic blood pressure 72 mm[Hg] NA Selby PA-C Work Phone: [facility] 10-03-2021 13:43-0400 Heart rate 60 /min NA Selby PA-C Work Phone: [facility] 10-03-2021 13:43-0400 Respiratory rate 16 /min NA Selby PA-C Work Phone: [facility] 10-03-2021 13:43-0400 SaO2% (BldA) [Mass fraction] 98 % NA Selby PA-C Work Phone: [facility] 10-03-2021 13:43-0400 Systolic blood pressure 120 mm[Hg] NA Selby PA-C Work Phone: [facility] 09-14-2021 16:01-0400 Diastolic blood pressure 70 mm[Hg] Dr. Paul Kendrick Work Phone: [facility] Work Phone: 09-14-2021 16:01-0400 Heart rate 60 /min Dr. Paul Kendrick Work Phone: [facility] Work Phone: 09-14-2021 16:01-0400 Respiratory rate 16 /min Dr. Paul Kendrick Work Phone: [facility] Work Phone: 09-14-2021 16:01-0400 SaO2% (BldA) [Mass fraction] 98 % Dr. Paul Kendrick Work Phone: [facility] Work Phone: 09-14-2021 16:01-0400 Systolic blood pressure 110 mm[Hg] Dr. Paul Kendrick Work Phone: [facility] Work Phone: 09-14-2021 15:47-0400 Body temperature 97.5 [degF] Dr. Paul Kendrick Work Phone: [facility] Work Phone: 09-14-2021 13:17-0400 Body height 165.[address] Paul Kendrick Work Phone: [facility] Work Phone: 09-14-2021 13:17-0400 Body mass index (BMI) [Ratio] 30 kg/m2 Dr. Paul Kendrick Work Phone: [facility] Work Phone: 09-14-2021 13:17-0400 Body weight [address] Paul Kendrick Work Phone: [facility] Work Phone: 07-31-2021 13:35-0400 Body weight 86.18 kg Tomasa Alarcon CUSTOM FEED MILL OPERATOR HELPER.CNM Work Phone: [facility] 07-31-2021 13:35-0400 Diastolic blood pressure 70 mm[Hg] Tomasa Plotts CUSTOM FEED MILL OPERATOR HELPER.CNM Work Phone: [facility] 07-31-2021 13:35-0400 Systolic blood pressure 108 mm[Hg] Tomasa Plotts CUSTOM FEED MILL OPERATOR HELPER.CNM Work Phone: [facility] 07-12-2021 15:11-0400 Body weight 84.6 kg Asia Miller MD Work Phone: [facility] 07-12-2021 15:11-0400 Diastolic blood pressure 80 mm[Hg] Asia Miller MD Work Phone: [facility] 07-12-2021 15:11-0400 Systolic blood pressure 120 mm[Hg] Asia Miller MD Work Phone: [facility] 07-12-2021 14:43-0400 Body temperature 98.49 [degF] Milan Hernandez MD Work Phone: [facility] 07-12-2021 14:43-0400 Body weight 84.82 kg Milan Hernandez MD Work Phone: [facility] 07-12-2021 14:43-0400 Diastolic blood pressure 75 mm[Hg] Milan Hernandez MD Work Phone: [facility] 07-12-2021 14:43-0400 Heart rate 82 /min Milan Hernandez MD Work Phone: [facility] 07-12-2021 14:43-0400 Systolic blood pressure 157 mm[Hg] Milan Hernandez MD Work Phone: [facility] 06-23-2021 14:35-0400 Body temperature 98.1 [degF] [facility] Work Phone: 06-23-2021 14:35-0400 Diastolic blood pressure 54 mm[Hg] [facility] Work Phone: 06-23-2021 14:35-0400 Heart rate 83 /min [facility] Work Phone: 06-23-2021 14:35-0400 Respiratory rate 16 /min [facility] Work Phone: 06-23-2021 14:35-0400 SaO2% (BldA) [Mass fraction] 99 % [facility] Work Phone: 06-23-2021 14:35-0400 Systolic blood pressure 101 mm[Hg] [facility] Work Phone: 06-23-2021 11:18-0400 Body height 165.1 cm [facility] Work Phone: 06-23-2021 11:18-0400 Body mass index (BMI) [Ratio] 31.2 kg/m2 [facility] Work Phone: 06-23-2021 11:18-0400 Body weight 85.27 kg [facility] Work Phone: 06-22-2021 12:20-0400 Body temperature 96.8 [degF] [facility] Work Phone: 06-22-2021 12:20-0400 Diastolic blood pressure 79 mm[Hg] [facility] Work Phone: 06-22-2021 12:20-0400 Heart rate 72 /min [facility] Work Phone: 06-22-2021 12:20-0400 Respiratory rate 16 /min [facility] Work Phone: 06-22-2021 12:20-0400 SaO2% (BldA) [Mass fraction] 98 % [facility] Work Phone: 06-22-2021 12:20-0400 Systolic blood pressure 128 mm[Hg] [facility] Work Phone: 06-22-2021 09:15-0400 Body height 165.1 cm [facility] Work Phone: 06-22-2021 09:15-0400 Body mass index (BMI) [Ratio] 32.4 kg/m2 [facility] Work Phone: 06-22-2021 09:15-0400 Body weight 88.45 kg [facility] Work Phone: Encounters Encounter Date Encounter Type Care Provider Facility Start: 09-30-2024 ambulatory [facility] Facility:[facility] Start: 09-29-2024 End: 09-29-2024 Telephone encounter Paul Kendrick MD Work Phone: [facility] Start: 09-29-2024 Encounter for other preprocedural examination [facility] Start: 09-28-2024 End: 09-28-2024 ambulatory Paul Kendrick MD Work Phone: [facility] Comment on above: Iron supplements Start: 09-25-2024 End: 09-28-2024 Telephone encounter Paul Kendrick MD Work Phone: [facility] Comment on above: Results Start: 09-23-2024 End: 09-23-[address] Paul Kendrick MD Work Phone: -Laboratory Start: 09-23-2024 End: 09-23-[address] Paul Kendrick MD -Laboratory Work Phone: Start: 09-22-2024 End: 09-23-2024 Get Medical Advice Paul Kendrick MD Work Phone: [facility] Comment on above: Lab orders Patient Question (Re : EKG report) Start: 09-14-2024 End: 09-14-2024 Patient encounter procedure Paul Kendrick MD Work Phone: [facility] Comment on above: Lumbar radiculopathy (Primary Dx); RLS (restless legs syndrome); Seizures (HCC); Carpal tunnel syndrome, unspecified laterality; FLOR (obstructive sleep apnea); Other vitamin B12 deficiency anemia; GERD without esophagitis; Hyperbilirubinemia; Other specified nutritional anemias; Vitamin D deficiency; Folic acid deficiency (non anemic); History of Angelika-en-Y gastric bypass; Frequent UTI; Screening, heart disease, ischemic Start: 09-14-2024 End: 09-14-2024 ambulatory PAUL KENDRICK Facility:[facility] Start: 09-08-2024 End: 09-08-[address] Barney Rajan MD -[facility] Work Phone: Start: 09-08-2024 End: 09-08-[address] Paul Kendrick MD Work Phone: [facility] Work Phone: Start: 09-01-2024 End: 09-01-2024 ambulatory MARRY Torie PAREDES Facility:[facility] Start: 09-01-2024 End: 09-01-2024 Office outpatient visit 15 minutes Marry Torie Paredes CUSTOM FEED MILL OPERATOR HELPER.CERTIFIED CODING SPECIALIST Work Phone: [facility] Comment on above: Recurrent UTI (urina ry tract infection) (Primary Dx); RLS (restless legs syndrome) Start: 08-27-2024 End: 08-27-2024 ambulatory Paul Kendrick MD Work Phone: [facility] Comment on above: Trazodone Start: 05-05-2024 End: 05-05-2024 Patient encounter procedure Dr. Barney Rajan MD -[facility] Work Phone: Start: 05-05-2024 End: 05-05-2024 ambulatory Barney Rajan Facility:[facility] [place] Start: 04-16-2024 End: 04-16-[address] Paul Kendrick MD Work Phone: [facility] Work Phone: Start: 04-16-2024 End: 04-16-[address] Shayne Blas MD -Physical Therapy Work Phone: Start: 04-13-2024 End: 04-13-[address] Shayne Blas MD -MRI - [facility] Work Phone: Start: 04-13-2024 End: 04-13-2024 ambulatory Shayne Blas Facility:[facility] Start: 03-04-2024 End: 03-04-2024 ambulatory No Pcp CUSTOM FEED MILL OPERATOR HELPER [facility] Start: 03-04-2024 End: 03-04-2024 Patient encounter procedure No Pcp CUSTOM FEED MILL OPERATOR HELPER [facility] Start: 03-04-2024 End: 03-04-2024 Telephone encounter Paul Kendrick MD Work Phone: [facility] Comment on above: Consult Start: 03-03-2024 End: 03-03-2024 ambulatory Paul Kendrick MD Work Phone: [facility] Comment on above: Low Back Pain Start: 03-03-2024 End: 03-03-2024 Emergency department patient visit Dr. Virginia Peter DO -Emergency Department Work Phone: Start: 03-02-2024 End: 03-03-2024 Telephone encounter Pual Kendrick MD Work Phone: [facility] Comment on above: Back Pain Start: 03-02-2024 End: 03-02-[address] Sav Montes DC -Radiology, [facility] Work Phone: Start: 03-02-2024 End: 03-02-2024 [facility] Facility[facility] Start: 01-15-2024 End: 01-15-2024 ambulatory Marry A Suppan CUSTOM FEED MILL OPERATOR HELPER.CERTIFIED CODING SPECIALIST Work Phone: [facility] Comment on above: Prior Authorization Start: 01-15-2024 End: 01-15-2024 Telephone encounter Paul Kendrick MD Work Phone: [facility] Comment on above: Insurance Authorizat ion (lansoprazole) Start: 01-13-2024 End: 01-13-2024 ambulatory MARRY A SUPPAN Facility:[facility] Start: 01-13-2024 End: 01-13-2024 Periodic preventive med est patient 18-39 yrs Marry Vogt Yovani CORTESN.CERTIFIED CODING SPECIALIST Work Phone: [facility] Comment on above: GERD without esophag itis (Primary Dx); RLS (restless legs syndrome); Seizures (HCC); Seizure disorder (HCC); Screening for depression; Encounter for screening examination for other mental health and behavioral disorders; Other vitamin B12 deficiency anemia; History of Angelika-en-Y gastric bypass Start: 12-26-2023 End: 12-27-2023 Refill Paul Kendrick MD Work Phone: [facility] [place] Comment on above: Refill Request Start: 12-18-2023 End: 12-18-2023 Telephone encounter Paul Kendrick MD Work Phone: [facility] Comment on above: Injection Letter Start: 11-26-2023 End: 11-26-2023 Refill Paul Kendrick MD Work Phone: [facility] Comment on above: Refill Request Start: 11-13-2023 ambulatory Paul Kendrick MD Work Phone: [facility] [place] Comment on above: B12 Start: 10-28-2023 Refill Paul Kendrick MD Work Phone: [facility] Comment on above: Refill Request Start: 07-17-2023 Refill Paul Kendrick MD Work Phone: [facility] Comment on above: Refill Request Start: 06-29-2023 ambulatory Paul Kendrick MD Work Phone: [facility] Comment on above: [facility] Start: 05-29-2023 Telephone encounter Evelin dey APRN.CERTIFIED CODING SPECIALIST Work Phone: OB/Gynecology Comment on above: Results; Orders Start: 05-28-2023 ambulatory Cassius holland PA-C Work Phone: [facility] [place] Comment on above: [facility] Start: 05-28-2023 Telephone encounter Paul Kendrick MD Work Phone: [facility] Comment on above: Medication Problem Start: 05-21-2023 Telephone encounter Evelin dey KIRTI.CERTIFIED CODING SPECIALIST Work Phone: OB/Gynecology Comment on above: Results Start: 05-17-2023 End: 05-17-2023 Patient encounter procedure Evelin Lund KIRTI.CERTIFIED CODING SPECIALIST Work Phone: OB/Gynecology Comment on above: Vaginal pain (Primar y Dx); Vaginal discharge; Cervical cancer screening; Special screening examination for human papillomavirus (HPV) Start: 05-16-2023 End: 05-16-2023 ambulatory Cassius Jelani Selby PA-C Work Phone: [facility] Comment on above: GERD without esophag itis (Primary Dx); Seizures (HCC); FLOR (obstructive sleep apnea); RLS (restless legs syndrome); History of recurrent UTI (urinary tract infection); History of herpes genitalis; Tobacco use; Other vitamin B12 deficiency anemia Start: 05-16-2023 End: 05-16-2023 Telemedicine consultation with patient Cassius Palomares Bal HURTADO Work Phone: [facility] Start: 05-15-2023 End: 05-15-2023 Patient encounter procedure Radha COVARRUBIAS Work Phone: [facility] Comment on above: Vaginal discharge (P rimary Dx) Start: 05-06-2023 Refill Paul Kendrick MD Work Phone: [facility] Comment on above: Refill Request Start: 12-16-2022 Refill Paul Kendrick MD Work Phone: [facility] [place] Comment on above: Refill Request Start: 11-28-2022 Telephone encounter Paul Kendrick MD Work Phone: [facility] [place] Comment on above: Patient Question Start: 11-15-2022 ambulatory Paul Kendrick MD Work Phone: [facility] Comment on above: B12 Start: 11-04-2022 ambulatory Paul Kendrick MD Work Phone: [facility] [place] Comment on above: Trazodone Start: 10-03-2022 End: 10-03-2022 Patient encounter procedure Paul Kendrick MD Work Phone: [facility] Comment on above: RLS (restless legs s yndrome) (Primary Dx); Seizures (HCC); FLOR (obstructive sleep apnea); Other vitamin B12 deficiency anemia; Folic acid deficiency (non anemic); History of Angelika-en-Y gastric bypass; Vitamin D deficiency; Acne comedone Start: 08-08-2022 End: 08-08-2022 Nursing evaluation of patient and report Mi Nurse Work Phone: [facility] Comment on above: Other vitamin B12 de ficiency anemia (Primary Dx); History of gastric bypass Start: 07-17-2022 End: 07-17-2022 ambulatory [facility] Work Phone: Start: 07-17-2022 End: 07-17-2022 Patient encounter procedure [facility]-Radiology, [place] Start: 07-11-2022 End: 07-11-2022 Patient encounter procedure [facility]-Ultrasound, [facility] Start: 07-09-2022 End: 07-09-2022 Nursing evaluation of patient and report Mi Nurse Work Phone: [facility] Comment on above: Other vitamin B12 de ficiency anemia (Primary Dx); History of gastric bypass Start: 07-03-2022 ambulatory Paul Kendrick MD Work Phone: [facility] Comment on above: Gabapentin Start: 07-02-2022 Refill Paul Kendrick MD Work Phone: [facility] Comment on above: Refill Request; Refi ll Request Start: 06-08-2022 End: 06-08-2022 Nursing evaluation of patient and report Mi Nurse Work Phone: [facility] Comment on above: Other vitamin B12 de ficiency anemia (Primary Dx); History of gastric bypass Start: 06-07-2022 Telephone encounter Tomasa rodriguez APRN.CNM Work Phone: OB/Gynecology Comment on above: Medication Problem Start: 06-05-2022 End: 06-05-2022 Patient encounter procedure Tomasa Alarcon CUSTOM FEED MILL OPERATOR HELPER.CNM Work Phone: OB/Gynecology Comment on above: Encounter for gyneco logical examination (general) (routine) without abnormal findings (Primary Dx); Screening for STD (sexually transmitted disease); Intrauterine contraceptive device threads lost, initial encounter Start: 06-05-2022 End: 06-05-2022 Patient encounter status Tomasa Alarcon CUSTOM FEED MILL OPERATOR HELPER.CNM Work Phone: OB/Gynecology Start: 05-16-2022 End: 05-16-2022 ambulatory [facility] Work Phone: Start: 05-16-2022 End: 05-16-2022 Patient encounter procedure [facility] Start: 05-11-2022 End: 05-11-2022 Nursing evaluation of patient and report Mi Nurse Work Phone: [facility] Comment on above: Other vitamin B12 de ficiency anemia (Primary Dx); History of gastric bypass Start: 04-26-2022 Telephone encounter Paul Kendrick MD Work Phone: [facility] Comment on above: Vit D Rx Start: 04-24-2022 Telephone encounter Paul Kendrick MD Work Phone: [facility] [place] Comment on above: Results Start: 04-10-2022 End: 04-10-2022 Nursing evaluation of patient and report Mi Nurse Work Phone: [facility] [place] Comment on above: Other vitamin B12 de ficiency anemia (Primary Dx); History of gastric bypass Start: 04-09-2022 ambulatory Cassius holland PA-C Work Phone: [facility] [place] Comment on above: vit D level Start: 04-09-2022 E-mail encounter fro m caregiver Cassius Selby PA-C Work Phone: [facility] Start: 04-04-2022 End: 04-04-2022 Patient encounter procedure Paul Kendrick MD Work Phone: [facility] Comment on above: Seizures (HCC) (Prim roe Dx); RLS (restless legs syndrome); FLOR (obstructive sleep apnea); Other vitamin B12 deficiency anemia; Folic acid deficiency (non anemic); Other specified nutritional anemias; Vitamin D deficiency; History of depression; Poisoning by vitamin D, undetermined intent, sequela; Folate deficiency; History of gastric bypass; Hair loss; Hyperbilirubinemia Start: 03-08-2022 End: 03-08-2022 Nursing evaluation of patient and report Mi Nurse Work Phone: [facility] Comment on above: Other vitamin B12 de ficiency anemia (Primary Dx); History of gastric bypass Start: 02-12-2022 Telephone encounter Asia langford MD Work Phone: OB/Gynecology Comment on above: Orders Start: 02-09-2022 End: 02-09-2022 Patient encounter procedure Asia Miller MD Work Phone: OB/Gynecology Comment on above: Vaginal discharge (P rimary Dx); Vaginal odor Start: 02-08-2022 End: 02-08-2022 Nursing evaluation of patient and report Mi Nurse Work Phone: [facility] [place] Comment on above: Other vitamin B12 de ficiency anemia (Primary Dx) Start: 02-04-2022 Refill Paul Kendrick MD Work Phone: [facility] Comment on above: Refill Request Start: 01-04-2022 Refill Cassius Holder on PA-C Work Phone: [facility] Comment on above: Refill Request Start: 2021 ambulatory Cassius Holder on PA-C Work Phone: [facility] Comment on above: Trazodone Start: 12-08-2021 End: 12-08-2021 Nursing evaluation of patient and report Mi Nurse Work Phone: [facility] [place] Comment on above: Other vitamin B12 de ficiency anemia (Primary Dx); History of gastric bypass Start: 12-06-2021 Telephone encounter Paul Kendrick MD Work Phone: [facility] Comment on above: Orders Start: 11-08-2021 End: 11-08-2021 Nursing evaluation of patient and report Mi Nurse Work Phone: [facility] Comment on above: Other vitamin B12 de ficiency anemia (Primary Dx); History of gastric bypass Start: 10-17-2021 Telephone encounter Paul Kendrick MD Work Phone: [facility] Comment on above: Insurance Authorizat ion (RETINA-A cream ) Start: 10-08-2021 ambulatory Cassius Jelani holland PA-C Work Phone: [facility] Start: 10-08-2021 Follow-up encounter Cassius Jelani COVARRUBIAS-C Work Phone: [facility] Comment on above: Follow up Start: 10-06-2021 Telephone encounter Paul Kendrick MD Work Phone: [facility] Comment on above: Opened In Error Start: 10-06-2021 End: 10-06-2021 Nursing evaluation of patient and report Mi Nurse Work Phone: [facility] Comment on above: Other vitamin B12 de ficiency anemia (Primary Dx); History of gastric bypass Start: 10-04-2021 End: 10-04-[address] Paul Kendrick Work Phone: [facility] Start: 10-03-2021 Telephone encounter Paul Kendrick MD Work Phone: [facility] Comment on above: Insurance Authorizat ion (Tretinoin Microsphere Gel) Start: 10-03-2021 End: 10-03-2021 Patient encounter procedure Cassius Jelani COVARRUBIAS-C Work Phone: [facility] Comment on above: GERD without esophag itis (Primary Dx); RLS (restless legs syndrome); Gastroenteritis; Acne comedone; Chronic insomnia; FLOR (obstructive sleep apnea); Vitamin D deficiency Start: 09-14-2021 End: 09-14-2021 Admission to same day surgery center Dr. Paul Kendrick Work Phone: [facility] Start: 09-08-2021 End: 09-08-2021 Nursing evaluation of patient and report Mi Nurse Work Phone: [facility] Comment on above: Other vitamin B12 de ficiency anemia (Primary Dx); History of gastric bypass Start: 08-28-2021 Refill Paul Kendrick MD Work Phone: [facility] Comment on above: Refill Request Start: 08-08-2021 End: 08-08-2021 Nursing evaluation of patient and report Ny Nurse Work Phone: [facility] Comment on above: Other vitamin B12 de ficiency anemia (Primary Dx); History of gastric bypass Start: 07-31-2021 End: 07-31-2021 Patient encounter procedure Tomasa Alarcon APRN.CNM Work Phone: OB/Gynecology Comment on above: Vaginal discharge (P rimary Dx); Vaginal pruritus Start: 07-14-2021 Telephone encounter Milan Hernandez MD Work Phone: Hematology/Oncology Comment on above: Results; Medication Problem Start: 07-12-2021 End: 07-12-2021 ambulatory Milan Hernandez MD Work Phone: Hematology/Oncology Comment on above: History of Angelika-en-Y gastric bypass (Primary Dx); Vitamin D deficiency; Folic acid deficiency (non anemic); Anemia due to vitamin B12 deficiency, unspecified B12 deficiency type Start: 07-12-2021 End: 07-12-2021 Patient encounter procedure Asia Miller MD Work Phone: OB/Gynecology Comment on above: Vaginal discharge (P rimary Dx); IUD (intrauterine device) in place Start: 07-10-2021 End: 07-10-2021 Refill Paul Kendrick MD Work Phone: [facility] Comment on above: Refill Request Other vitamin B12 de ficiency anemia (Primary Dx) Start: 06-23-2021 Non-patient / Non-visit Dr. Rosa Kendrick Work Phone: [facility] Start: 06-22-2021 End: 06-23-2021 Evaluation and management of inpatient [facility] 3 Start: 06-22-2021 End: 06-22-2021 [facility] Start: 06-11-2020 End: 06-11-2020 Subsequent hospital visit by physician [facility] Work Phone: Radiology Comment on above: Thumb tendonitis [M7 7.8] Start: 04-08-2018 End: 04-08-2018 Patient encounter procedure KERRIE KOLB [facility] Start: 09-08-2015 End: 11-21-2015 Patient requested procedure Paul Kendrick MD Work Phone: [facility] Start: 06-30-2009 End: 09-13-2015 Patient encounter status Paul Kendrick MD Work Phone: [facility] Procedures Date Procedure Procedure Detail Performing Clinician Start: 09-23-2024 Total iron binding capacity measurement Dr. Paul Kendrick MD Work Phone: Start: 09-14-2024 Urnls dip stick/tablet rgnt auto w/o microscopy Paul Kendrick MD Work Phone: Start: 09-01-2024 Urnls dip stick/tablet rgnt auto w/o microscopy Marry Paredes CUSTOM FEED MILL OPERATOR HELPER.CERTIFIED CODING SPECIALIST Work Phone: Start: 05-05-2024 X-ray of lumbosacral spine Dr. Paul abdi MD Work Phone: Start: 04-13-2024 MRI of lumbar spine Dr. Paul Kendrick MD Work Phone: Start: 03-02-2024 X-ray of lumbar spine, two or three views Dr. Paul Kendrick MD Work Phone: Start: 01-13-2024 Adult depression screening assessment Marry Paredes CUSTOM FEED MILL OPERATOR HELPER.CERTIFIED CODING SPECIALIST Work Phone: Start: 07-17-2022 Diagnostic radiography of abdomen Start: 07-11-2022 US urinary tract Start: 05-16-2022 Diagnostic radiography of abdomen Start: 10-04-2021 Diagnostic radiography of abdomen Dr. Paul Kendrick Work Phone: Start: 09-14-[address] 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 Paul Chavira Work Phone: Viral antigen assay Dr. Pepe Kendrick Work Phone: Plan of Treatment Date Care Activity Detail Author Start: 05-17-2028 Screening for malignant neoplasm of cervix [facility] Start: 06-06-2027 HPV TESTING HPV TESTING [facility] Start: 06-06-2027 PAP TESTING PAP TESTING [facility] Start: 06-06-2027 Screening for malignant neoplasm of cervix [facility] Start: 02-12-2026 Urine microalbumin profile [facility] Start: 01-12-2025 Anxiety Screening Anxiety Screening [facility] Start: 01-12-2025 Covid-19 Vaccine ( season) Covid-19 Vaccine () [facility] Comment on above: Postponed from 12/01/2023 (Declined at t his time) Start: 01-12-2025 Depression Screening Depression Screening [facility] Start: 01-12-2025 Pneumococcal vaccination Pneumococcal Vaccine (1 of 2 - PCV) [facility] Comment on above: Postponed from 1990 (Declined at t his time) Postponed from 12/29 (Declined at this time) Start: 11-30-2024 Influenza vaccination [facility] Start: 10-28-2024 End: 01-27-2025 CBC W Auto Differential panel - Blood COMPLETE BLOOD COUNT AND DIFFERENTIAL Lab Routine Low iron Expected: 10/28/2024, Expires: 01/27/2025 [facility] Work Phone: Comment on above: Expected: 10/28/2024, Expires: Start: 10-28-2024 End: 01-27-2025 Iron and Iron binding capacity panel - Serum or Plasma IRON AND TIBC Lab Routine Low iron Expected: 10/28/2024, Expires: 01/27/2025 [facility] Comment on above: Expected: 10/28/2024, Expires: Start: 10-26-2024 End: 10-26-2024 Patient encounter procedure 10/26/2024 8:15 AM EDT Office Visit OB/Gynecology [address] [place] [address] Tomasa Alarcon APRN.[facility] [address] [place] [address] Annual OB/Gynecology Comment on above: Annual Start: 09-28-2024 Influenza vaccination Influenza Vaccine (#1) [place] Cynthia marks Comment on above: Postponed from 12/01/2023 (Declined at t his time) Start: 09-23-2024 [facility] Start: 09-14-2024 End: 12-14-2024 CBC W Auto Differential panel - Blood COMPLETE BLOOD COUNT AND DIFFERENTIAL Lab Routine History of Angelika-en-Y gastric bypass Expected: 09/14/2024, Expires: 12/14/2024 [facility] Work Phone: Comment on above: Expected: 09/14/2024, Expires: Start: 09-14-2024 End: 12-14-2024 Cobalamin (Vitamin B12) [Mass/volume] in Serum or Plasma VITAMIN B12 Lab Routine History of Angelika-en-Y gastric bypass Expected: 09/14/2024, Expires: 12/14/2024 [facility] Comment on above: Expected: 09/14/2024, Expires: Start: 09-14-2024 End: 12-14-2024 Comprehensive metabolic 2000 panel - Serum or Plasma COMPREHENSIVE METABOLIC PANEL Lab Routine History of Angelika-en-Y gastric bypass Expected: 09/14/2024, Expires: 12/14/2024 [facility] Comment on above: Expected: 09/14/2024, Expires: Start: 09-14-2024 End: 12-14-2024 Folate [Mass/volume] in Serum or Plasma FOLATE, SERUM Lab Routine History of Angelika-en-Y gastric bypass Expected: 09/14/2024, Expires: 12/14/2024 [facility] Comment on above: Expected: 09/14/2024, Expires: Start: 09-14-2024 End: 12-14-2024 Iron and Iron binding capacity panel - Serum or Plasma IRON AND TIBC Lab Routine History of Angelika-en-Y gastric bypass Expected: 09/14/2024, Expires: 12/14/2024 [facility] Comment on above: Expected: 09/14/2024, Expires: Start: 09-14-2024 End: 12-14-2024 VITAMIN B1 (THIAMINE), WHOLE BLOOD VITAMIN B1 (THIAMINE), WHOLE BLOOD Lab Routine History of Angelika-en-Y gastric bypass Expected: 09/14/2024, Expires: 12/14/2024 [facility] Comment on above: Expected: 09/14/2024, Expires: Start: 09-08-2024 HPV TESTING HPV TESTING [facility] Start: 09-08-2024 PAP TESTING PAP TESTING [facility] Start: 05-17-2024 Screening for malignant neoplasm of cervix Cervical Cancer Screening [facility] Start: 03-03-2024 [facility] Start: 01-13-2024 End: 01-13-2024 Patient encounter procedure 01/13/2024 3:40 PM EDT Office Visit [facility] [address] [place] [address] Marry Paredes APRN.CERTIFIED CODING SPECIALIST [address] [place] [address] Physical [facility] [place] Comment on above: Physical Start: 01-13-2024 End: 04-13-2024 25-hydroxyvitamin D3 [Mass/volume] in Serum or Plasma VITAMIN D 25 HYDROXY Lab Routine History of Angelika-en-Y gastric bypass Expected: 01/13/2024, Expires: 04/13/2024 [facility] Comment on above: Expected: 01/13/2024, Expires: Start: 01-13-2024 End: 04-13-2024 CBC W Auto Differential panel - Blood COMPLETE BLOOD COUNT AND DIFFERENTIAL Lab Routine RLS (restless legs syndrome) History of Angelika-en-Y gastric bypass Expected: 01/13/2024, Expires: 04/13/2024 [facility] Work Phone: Comment on above: Expected: 01/13/2024, Expires: Start: 01-13-2024 End: 04-13-2024 Cobalamin (Vitamin B12) [Mass/volume] in Serum or Plasma VITAMIN B12 Lab Routine Other vitamin B12 deficiency anemia Expected: 01/13/2024, Expires: 04/13/2024 [facility] Comment on above: Expected: 01/13/2024, Expires: Start: 01-13-2024 End: 04-13-2024 Comprehensive metabolic 2000 panel - Serum or Plasma COMPREHENSIVE METABOLIC PANEL Lab Routine History of Angelika-en-Y gastric bypass Expected: 01/13/2024, Expires: 04/13/2024 [facility] Comment on above: Expected: 01/13/2024, Expires: Start: 01-13-2024 End: 04-13-2024 Hemoglobin A1c in Blood HEMOGLOBIN A1C Lab Routine History of Angelika-en-Y gastric bypass Expected: 01/13/2024, Expires: 04/13/2024 [facility] Comment on above: Expected: 01/13/2024, Expires: Start: 01-13-2024 End: 04-13-2024 LIPID PANEL, NONFASTING LIPID PANEL, NONFASTING Lab Routine History of Angelika-en-Y gastric bypass Expected: 01/13/2024, Expires: 04/13/2024 [facility] Comment on above: Expected: 01/13/2024, Expires: Start: 01-13-2024 End: 04-13-2024 Magnesium [Mass/volume] in Serum or Plasma MAGNESIUM Lab Routine RLS (restless legs syndrome) Expected: 01/13/2024, Expires: 04/13/2024 [facility] Comment on above: Expected: 01/13/2024, Expires: Start: 01-13-2024 End: 04-13-2024 Thyrotropin [Units/volume] in Serum or Plasma THYROID STIMULATING HORMONE Lab Routine Seizure disorder (HCC) Other vitamin B12 deficiency anemia Expected: 01/13/2024, Expires: 04/13/2024 [facility] Comment on above: Expected: 01/13/2024, Expires: Start: 12-01-2023 Covid-19 Vaccine ( season) Covid-19 Vaccine ( season) [facility] Start: 12-01-2023 Covid-19 Vaccine ( season) Covid-19 Vaccine ( season) [facility] Start: 12-01-2023 Influenza vaccination [facility] Start: 11-14-2023 End: 02-13-2024 CBC W Auto Differential panel - Blood CBC + DIFF Lab Routine GERD without esophagitis Seizures (HCC) Expected: 11/14/2023, Expires: 02/13/2024 [facility] Work Phone: Comment on above: Expected: 11/14/2023, Expires: Start: 11-14-2023 End: 02-13-2024 Comprehensive metabolic 2000 panel - Serum or Plasma COMP METABOLIC PANEL Lab Routine GERD without esophagitis Seizures (HCC) Expected: 11/14/2023, Expires: 02/13/2024 [facility] Work Phone: Comment on above: Expected: 11/14/2023, Expires: 4 Start: 04-04-2023 COVID-19 VACCINE (#1) COVID-19 VACCINE (#1) [facility] Comment on above: Postponed from 06/28/1985 (Declined at t his time) Start: 04-04-2023 PNEUMOCOCCAL (1 - PCV) PNEUMOCOCCAL (1 - PCV) [facility] Comment on above: Postponed from 1990 (Declined at t his time) Start: 04-04-2023 Pneumococcal vaccination Pneumococcal Vaccine (1 - PCV) [facility] Comment on above: Postponed from 1990 (Declined at t his time) Start: 04-01-2023 Behavioral Health Screening Behavioral Health Screening [facility] Start: 04-01-2023 Depression Assessment Depression Assessment [facility] Start: 11-30-2022 Covid-19 Vaccine ( season) Covid-19 Vaccine ( season) [facility] Start: 11-30-2022 Influenza vaccination [facility] Start: 10-03-2022 End: 12-03-2022 25-hydroxyvitamin D3 [Mass/volume] in Serum or Plasma [facility] Work Phone: Comment on above: Expected: 10/03/2022, Expires: 3 Start: 10-03-2022 End: 12-03-2022 VITAMIN B1 (THIAMINE), WHOLE BLOOD [facility] Work Phone: Comment on above: Expected: 10/03/2022, Expires: 3 Start: 09-28-2022 Influenza vaccination INFLUENZA (#1) [facility] Comment on above: Postponed from 11/30/2021 (Declined at t his time) Start: 07-11-2022 Adult depression screening assessment DEPRESSION SCREENING [facility] Start: 04-24-2022 End: 06-24-2022 THYROID PEROXIDASE ANTIBODY BLOOD THYROID PEROXIDASE ANTIBODY BLOOD Lab Routine Elevated TSH Expected: 04/24/2022, Expires: 06/24/2022 [facility] Work Phone: Comment on above: Expected: 04/24/2022, Expires: 3 Start: 04-24-2022 End: 06-24-2022 Thyrotropin [Units/volume] in Serum or Plasma TSH BLD Lab Routine Elevated TSH Expected: 04/24/2022, Expires: 06/24/2022 [facility] Work Phone: Comment on above: Expected: 04/24/2022, Expires: Start: 04-24-2022 End: 06-24-2022 Thyroxine (T4) free [Mass/volume] in Serum or Plasma T4 FREE/FREE THYROX Lab Routine Elevated TSH Expected: 04/24/2022, Expires: 06/24/2022 [facility] Work Phone: Comment on above: Expected: 04/24/2022, Expires: 3 Start: 04-24-2022 End: 06-24-2022 Triiodothyronine (T3) [Mass/volume] in Serum or Plasma T3 BLD Lab Routine Elevated TSH Expected: 04/24/2022, Expires: 06/24/2022 [facility] Work Phone: Comment on above: Expected: 04/24/2022, Expires: Start: 04-05-2022 End: 06-05-2022 25-hydroxyvitamin D3 [Mass/volume] in Serum or Plasma VITAMIN D 25 HYDROXY Lab Routine Vitamin D deficiency Expected: 04/05/2022, Expires: 06/05/2022 [facility] Work Phone: Comment on above: Expected: 04/05/2022, Expires: Start: 04-05-2022 End: 06-05-2022 CBC W Auto Differential panel - Blood CBC + DIFF Lab Routine RLS (restless legs syndrome) Gastroenteritis GERD without esophagitis Expected: 04/05/2022, Expires: 06/05/2022 [facility] Work Phone: Comment on above: Expected: 04/05/2022, Expires: 3 Start: 04-05-2022 End: 06-05-2022 Comprehensive metabolic 2000 panel - Serum or Plasma COMP METABOLIC PANEL Lab Routine RLS (restless legs syndrome) Gastroenteritis GERD without esophagitis Expected: 04/05/2022, Expires: 06/05/2022 [facility] Work Phone: Comment on above: Expected: 04/05/2022, Expires: 3 Start: 04-05-2022 End: 06-05-2022 Magnesium [Mass/volume] in Serum or Plasma MAGNESIUM BLD Lab Routine Gastroenteritis GERD without esophagitis Expected: 04/05/2022, Expires: 06/05/2022 [facility] Work Phone: Comment on above: Expected: 04/05/2022, Expires: Start: 04-04-2022 End: 06-04-2022 25-hydroxyvitamin D3 [Mass/volume] in Serum or Plasma VITAMIN D 25 HYDROXY Lab Routine Poisoning by vitamin D, undetermined intent, sequela Expected: 04/04/2022, Expires: 06/04/2022 [facility] Work Phone: Comment on above: Expected: 04/04/2022, Expires: 3 Start: 04-04-2022 End: 06-04-2022 Cobalamin (Vitamin B12) [Mass/volume] in Serum or Plasma VITAMIN B12 BLOOD Lab Routine Other vitamin B12 deficiency anemia History of gastric bypass Expected: 04/04/2022, Expires: 06/04/2022 [facility] Work Phone: Comment on above: Expected: 04/04/2022, Expires: 3 Start: 04-04-2022 End: 06-04-2022 Folate [Mass/volume] in Serum or Plasma FOLATE SERUM Lab Routine Folate deficiency Expected: 04/04/2022, Expires: 06/04/2022 [facility] Work Phone: Comment on above: Expected: 04/04/2022, Expires: 3 Start: 04-04-2022 End: 06-04-2022 Iron and Iron binding capacity panel - Serum or Plasma IRON + TIBC Lab Routine History of gastric bypass Expected: 04/04/2022, Expires: 06/04/2022 [facility] Work Phone: Comment on above: Expected: 04/04/2022, Expires: 3 Start: 04-04-2022 End: 06-04-2022 bilirubin panel [Mass/volume] - Serum or Plasma BILIRUBIN FRACTION Lab Routine Hyperbilirubinemia Expected: 04/04/2022, Expires: 06/04/2022 [facility] Work Phone: Comment on above: Expected: 04/04/2022, Expires: 3 Start: 04-04-2022 End: 06-04-2022 Thyrotropin [Units/volume] in Serum or Plasma TSH BLD Lab Routine Hair loss Expected: 04/04/2022, Expires: 06/04/2022 [facility] Work Phone: Comment on above: Expected: 04/04/2022, Expires: 3 Start: 04-04-2022 End: 06-04-2022 VITAMIN B1 (THIAMINE), WHOLE BLOOD VITAMIN B1 (THIAMINE), WHOLE BLOOD Lab Routine History of gastric bypass Expected: 04/04/2022, Expires: 06/04/2022 [facility] Work Phone: Comment on above: Expected: 04/04/2022, Expires: 3 Start: 04-01-2022 Adult depression screening assessment DEPRESSION SCREENING [facility] Start: 11-30-2021 Influenza vaccination [facility] Start: 09-14-2021 Patient discharge [facility] Work Phone: Start: 09-14-2021 Anes lithotrp xtrcorp shock wave w/o water bath ANESTH KIDNEY STONE DESTRUCT [facility] Work Phone: Start: 09-14-2021 Lithotripsy xtrcorp shock wave FRAGMENTING OF KIDNEY STONE [facility] Work Phone: Start: 07-12-2021 End: 09-11-2021 VITAMIN D 25 HYDROXY [facility] Work Phone: Comment on above: Expected: 07/12/2021, Expires: Start: 06-23-2021 Patient discharge [facility] Work Phone: Start: 06-22-2021 Application of intermittent pneumatic compression device [facility] Work Phone: Start: 06-22-2021 Collection of urine and strain for calculus [facility] Work Phone: Start: 06-22-2021 Incentive spirometry [facility] Work Phone: Start: 06-22-2021 Admission procedure [facility] Work Phone: Start: 06-22-2021 Assessment of risk of venous thromboembolism [facility] Work Phone: Start: 06-22-2021 Insertion of catheter into peripheral vein [facility] Work Phone: Start: 06-22-2021 Providing care according to standard [facility] Work Phone: Start: 06-22-2021 End: 06-22-2021 [facility] Work Phone: Start: 06-22-2021 Ambulation without limitation [facility] Work Phone: Start: 06-22-2021 Measuring intake and output [facility] Work Phone: Start: 06-22-2021 Following clinical pathway protocol [facility] Work Phone: Start: 06-22-2021 Anes transurethral w/urethrocystoscopy nos ANESTH BLADDER SURGERY [facility] Work Phone: Start: 06-22-2021 Basic metabolic panel calcium total METABOLIC PANEL TOTAL CA [facility] Work Phone: Start: 06-22-2021 Blood count complete auto&auto difrntl wbc COMPLETE CBC W/AUTO DIFF WBC [facility] Work Phone: Start: 06-22-2021 Ct abdomen & pelvis w/o contrast material CT ABD & PELVIS W/O CONTRAST [facility] Work Phone: Start: 06-22-2021 Culture bacterial quanttative colony count urine URINE CULTURE/COLONY COUNT [facility] Work Phone: Start: 06-22-2021 Cysto w/insert ureteral stent CYSTOSCOPY AND TREATMENT [facility] Work Phone: Start: 06-22-2021 Gonadotropin chorionic qualitative CHORIONIC GONADOTROPIN ASSAY [facility] Work Phone: Start: 06-22-2021 Urine culture Urine Culture [facility] Work Phone: Start: 06-22-2021 Urine test visual color cmprsn meths URINE TEST [facility] Work Phone: Start: 06-22-2021 Urnls dip stick/tablet reagent auto microscopy URINALYSIS AUTO W/SCOPE [facility] Work Phone: Start: 04-01-2021 DEPRESSION ASSESSMENT DEPRESSION ASSESSMENT [facility] Start: 12-30-2003 ONE PNEUMOVAX PRIOR TO AGE 65 ONE PNEUMOVAX PRIOR TO AGE 64 [facility] Start: 2002 Anxiety Screening Anxiety Screening [facility] Start: 2002 Depression Screening Depression Screening [facility] Start: 1990 PNEUMOCOCCAL (1 - PCV) PNEUMOCOCCAL (1 - PCV) [facility] Start: 1990 Pneumococcal vaccination Pneumococcal Vaccine (1 of 2 - PCV) [facility] Start: 1989 COVID-19 VACCINE (#1) COVID-19 VACCINE (#1) [facility] Start: 1989 COVID-19 VACCINE (1) COVID-19 VACCINE (1) [facility] Start: 06-28-1985 COVID-19 VACCINE (#1) COVID-19 VACCINE (#1) [facility] Start: 1984 HEPATITIS B (1 of 3 - 3-dose series) HEPATITIS B (1 of 3 - 3-dose series) [facility] Bacteria identified in Urine by Culture BACTERIAL CULTURE, URINE Microbiology Routine Recurrent UTI (urinary tract infection) 09/01/2024 12:22 PM EDT [facility] Work Phone: BACTERIAL VAGINOSIS AMPLIFICATION BACTERIAL VAGINOSIS AMPLIFICATION Lab Routine Vaginal discharge Vaginal odor 02/09/2022 11:29 AM EST [facility] Work Phone: BACTERIAL VAGINOSIS AMPLIFICATION BACTERIAL VAGINOSIS AMPLIFICATION Lab Routine Screening for STD (sexually transmitted disease) 06/05/2022 5:00 PM EST [facility] Work Phone: BACTERIAL VAGINOSIS NAAT BACTERI AL VAGINOSIS NAAT Lab Routine Vaginal discharge Ordered: 05/15/2023 [facility] Work Phone: Comment on above: Ordered: 05/15/2023 BACTERIAL VAGINOSIS NAAT BACTERI AL VAGINOSIS NAAT Lab Routine Vaginal discharge 05/17/2023 1:47 PM EST [facility] Work Phone: BARRIE / TRICHOMONA S AMPLIFICATION BARRIE / TRICHOMONAS AMPLIFICATION Microbiology Routine Vaginal discharge Vaginal odor 02/09/2022 11:29 AM EST [facility] Work Phone: BARRIE / TRICHOMONA S AMPLIFICATION BARRIE / TRICHOMONAS AMPLIFICATION Microbiology Routine Screening for STD (sexually transmitted disease) 06/05/2022 5:00 PM EST [facility] Work Phone: BARRIE/TRICHOMONAS NAAT BARRIE /TRICHOMONAS NAAT Lab Routine Vaginal discharge Ordered: 05/15/2023 [facility] Work Phone: Comment on above: Ordered: 05/15/2023 BARRIE/TRICHOMONAS NAAT BARRIE /TRICHOMONAS NAAT Lab Routine Vaginal discharge 05/17/2023 1:47 PM EST [facility] Work Phone: Chlamydia trachomatis+Neisseria gonorrhoeae DNA [Presence] in Unspecified specimen by NADIR with probe detection GC/CHLAMYDIA DNA DET Lab Routine Vaginal discharge Vaginal odor 02/09/2022 11:29 AM EST [facility] Work Phone: Chlamydia trachomatis+Neisseria gonorrhoeae DNA [Presence] in Unspecified specimen by NADIR with probe detection GC/CHLAMYDIA DNA DET Lab Routine Screening for STD (sexually transmitted disease) 06/05/2022 3:28 PM EST [facility] Work Phone: Chlamydia trachomatis+Neisseria gonorrhoeae DNA [Presence] in Unspecified specimen by NADIR with probe detection GONORRHEA/CHLAMYDIA NAAT Lab Routine Vaginal discharge Ordered: 05/15/2023 [facility] Work Phone: Comment on above: Ordered: 05/15/2023 COLPOSCOPY COLPOSCOPY Proce dures Routine ASCUS with positive high risk HPV cervical Ordered: 05/29/2023 [facility] Work Phone: Comment on above: Ordered: 05/29/2023 ECG COMPLETE ECG COMPLETE ECG Routine Screening, heart disease, ischemic Ordered: 09/14/2024 [facility] Comment on above: Ordered: 09/14/2024 Microscopic observat ion [Identifier] in Vaginal fluid by Gram stain BACT/BARRIE VAG GRAM STAIN Microbiology Routine Vaginal discharge 07/12/2021 3:36 PM EDT [facility] Work Phone: Microscopic observat ion [Identifier] in Vaginal fluid by Gram stain BACT/BARRIE VAG GRAM STAIN Microbiology Routine Vaginal discharge 07/31/2021 1:51 PM EDT [facility] Work Phone: PAP FLUID CERVICAL SCREENING PAP FLUID CERVICAL SCREENING Lab Routine Encounter for gynecological examination (general) (routine) without abnormal findings 06/05/2022 3:28 PM [facility] Work Phone: PAP TEST PAP TEST Lab [facility] Cervical cancer screening Special screening examination for human papillomavirus (HPV) 05/17/2023 1:47 PM [facility] Work Phone: Patient Education [facility] Work Phone: Patient referral [facility] Work Phone: UROGENITAL UREAPLASM A AND MYCOPLASMA SPECIES BY PCR, FOR GENITAL, RECTAL, URINE SAMPLES UROGENITAL UREAPLASMA AND MYCOPLASMA SPECIES BY PCR, FOR GENITAL, RECTAL, URINE SAMPLES Lab Routine Vaginal pain 05/17/2023 1:47 PM [facility] Work Phone: End: 07-07-2023 Us transvaginal US FEMALE PELVIS TRANSVAG Radiology Routine Intrauterine contraceptive device threads lost, initial encounter 1 Occurrences starting 06/05/2022 until 07/07/2023 [facility] Work Phone: Comment on above: 1 Occurrences starting 06/05/2022 until 07/07/2023 [facility] Immunizations Immunization Date Immunization Notes Care Provider [facility] 03-31-2018 influenza virus vacc ine, unspecified formulation Paul Kendrick MD Work Phone: [facility] 02-13-2016 influenza, injectabl e, quadrivalent, preservative free Paul Kendrick MD Work Phone: [facility] 02-13-2016 tetanus toxoid, redu anjel diphtheria toxoid, and acellular pertussis vaccine, adsorbed Paul Kendrick MD Work Phone: [facility] 02-19-2014 influenza, live, intranasal, quadrivalent NA Bal HURTADO Work Phone: [facility] Payers Date Payer Category Payer Self-pay [id number] 2023 Private Health Insurance [id number] 2022 Private Health Insurance [id number] 2016 Unknown [id number] 2014 Medicaid [employer] [place] [id number] 2014-Present [phone] [place] [address] Medicaid [id number] 2014 Medicaid [id number] Unknown [id number] 62 Unknown [id number] 62 Unknown [id number] 62 Unknown [id number] 62 Unknown [id number] 62 Unknown [id number] 62 Unknown [id number] 62 Unknown [id number] 62 Unknown [id number] 62 Social History Date Type Detail Facility [facility] Work Phone: Start: 06-22-2021 End: 09-07-2021 Tobacco smoking status OKIS Unknown if ever smoked [facility] Start: 1985 Sex Assigned At Female [facility] Start: 08-29-2016 End: 01-13-2024 Tobacco smoking status NHIS Smokes tobacco daily [facility] History of tobacco use Cigarette Smoker C [facility] Start: 08-29-2016 End: 08-08-2022 Cigarettes smoked current (pack per day) - Reported 0.5 [facility] Start: 08-29-2016 End: 01-13-2024 Tobacco use and exposure Smokeless tobacco non-user [facility] Start: 06-07-2021 End: 09-24-2024 Alcohol intake Current drinker of alcohol (finding) [facility] Start: 04-01-2021 End: 03-28-2022 History SDOH Alcohol Frequency 4 [facility] Start: 04-01-2021 End: 03-28-2022 History SDOH Alcohol Std Drinks 1 [facility] Start: 02-14-2021 History SDOH Alcohol Comment social [facility] Start: 04-01-2021 End: 03-28-2022 History SDOH Social Connections Phone 5 [facility] Start: 04-01-2021 End: 03-28-2022 History SDOH Social Connections Yazdanism 3 [facility] Start: 04-01-2021 End: 03-28-2022 History SDOH Physical Activity DPW 2 [facility] Start: 08-04-2019 Education 12 [facility] Start: 04-24-2020 End: 07-31-2021 Exposure to SARS-CoV-2 (event) Not sure [facility] Start: 03-28-2022 History SDOH Physical Activity MPS 6 [facility] Start: 03-28-2022 End: 08-08-2022 Social connection and isolation panel [facility] Do you belong to any clubs or organizations such as judaism groups, unions, fraternal or athletic groups, or school groups? Yes [facility] Are you now , , , , never or living with a partner? [facility] How often to you hav e a drink containing alcohol? 2-3 time sa week [facility] How many standard dr inks containing alcohol do you have on a typical day? 1 or 2 [facility] How often do you hav e 6 or more drinks on 1 occasion? Never [facility] How hard is it for y ou to pay for the very basics like food, housing, medical care, and heating Not very hard [facility] Adult Depression Screening Assessment 0 [facility] Do you feel stress - tense, restless, nervous, or anxious, or unable to sleep at night because your mind is troubled all the time - these days [OSQ] Only a little [facility] (I/We) worried chrissy er (my/our) food would run out before (I/we) got money to buy more. Never true [facility] In the past 12 month s, was there a time when you were not able to pay the mortgage or rent on time? No [facility] Start: 04-09-2020 Gender identity Identifies as female gender (finding) [facility] Start: 04-09-2020 Sexual orientation Heterosexual (finding) [facility] How often to you hav e a drink containing alcohol? Monthly or less [facility] How hard is it for y ou to pay for the very basics like food, housing, medical care, and heating Somewhat hard [facility] Do you feel stress - tense, restless, nervous, or anxious, or unable to sleep at night because your mind is troubled all the time - these days [OSQ] Rather much [facility] Start: 03-09-2020 Alcohol Comment one drink a month [facility] Start: 06-16-2024 Sex Female (finding) [facility] Do you feel stress - tense, restless, nervous, or anxious, or unable to sleep at night because your mind is troubled all the time - these days [OSQ] To some extent [facility] Start: 09-22-2024 Tobacco smoking status NHIS Ex-smoker (finding) [facility] Medical Equipment Procedure Code Equipment Code Equipment Origin al Text Equipment Identifier Dates Cystoscopy, with retrograde pyelogram, ureteroscopy, laser procedure, and stent inser STENT,URETERAL PIGTAIL [id number] FDA Start: 06-23-2021 Cystoscopy, with retrograde pyelogram, ureteroscopy, laser procedure, and stent inser STENT,URETERAL PIGTAIL [id number] FDA Start: 06-23-2021 Cystoscopy, with retrograde pyelogram, ureteroscopy, laser procedure, and stent inser STENT,URETERAL PIGTAIL [id number] FDA Start: 06-23-2021 Cystoscopy, with retrograde pyelogram, ureteroscopy, laser procedure, and stent inser STENT,URETERAL PIGTAIL [id number] FDA Start: 06-23-2021 Cystoscopy, with retrograde pyelogram, ureteroscopy, laser procedure, and stent inser STENT,URETERAL PIGTAIL [id number] FDA Start: 06-23-2021 Cystoscopy, with retrograde pyelogram, ureteroscopy, laser procedure, and stent inser STENT,URETERAL PIGTAIL [id number] FDA Start: 06-23-2021 Cystoscopy, with retrograde pyelogram, ureteroscopy, laser procedure, and stent inser STENT,URETERAL PIGTAIL [id number] FDA Start: 06-23-2021 Goals Date Patient Goal Desired Activity /State Functional Status Date Assessment Result Facility 09-01-2024 Total score [AUDIT-C] 0 09/02/19 7:03 AM EDT User, Nemesio [facility] 09-01-2024 How often to you hav e a drink containing alcohol? Never 09/01/2024 7:03 AM EDT User, Jasmint Never [facility] 09-01-2024 Functional status Patient does n ot drink 09/01/2024 7:03 AM EDT User, Nemesio Patient does not drink [facility] 09-01-2024 How often do you hav e 6 or more drinks on 1 occasion? Never 09/01/2024 7:03 AM EDT User, Jasmint Never [facility] 06-23-2021 Functional status Ambulates [facility] Work Phone: 10-19-2014 Are you deaf, or do you have serious difficulty hearing No 10/19/2014 9:45 AM Debby Short RN No [facility] 10-19-2014 Are you blind, or do you have serious difficulty seeing, even when wearing glasses No 10/19/2014 9:45 AM Debby Short RN No [facility] 10-19-2014 Do you have serious difficulty walking or climbing stairs No 10/19/2014 9:45 AM Debby Short RN No [facility] 10-19-2014 Do you have difficul ty dressing or bathing No 10/19/2014 9:45 AM Debby Short RN No [facility] 10-19-2014 Because of a physica l, mental, or emotional condition, do you have difficulty doing errands alone such as visiting a physician's office or shopping No 10/19/2014 9:45 AM Debby Short RN No [facility] Mental Status Date Assessment Result Facility 09-14-2021 Cognitive function Voice/Name [facility] Work Phone: 06-23-2021 Cognitive function Level Of Cons ciousness Awake;Alert;Appropriate;Fol lows Commands [facility] Work Phone: 06-23-2021 Cognitive function Voice/Name [facility] Work Phone: 10-19-2014 Because of a physica l, mental, or emotional condition, do you have serious difficulty concentrating, remembering, or making decisions No 10/19/2014 9:45 AM EDT Debby Wilkins RN No [facility] Clinical Notes 08-29-2016 to 09-29-2024 Telephone Encounter - Liliana Smith RN - 09/29/2024 9:10 AM EDTTelephone Encounter - Liliana Smith RN - 09/29/2024 9:10 AM EDTTelephone Encounter - Nicole Duff MA - 09/28/2024 12:55 PM EDT Note Date & Type Note Facility 09-29-2024 Telephone encounter Note Shanna with [facility] called in and was asking about the ferrous gluconate and ferrous sulfate that were called in yesterday. I told her the ferrous sulfate had been canceled. She verbalized understanding. Liliana Smith RN [facility] 09-29-2024 Miscellaneous Notes Shanna with [facility] called in and was asking about the ferrous gluconate and ferrous sulfate that were called in yesterday. I told her the ferrous sulfate had been canceled. She verbalized understanding. Liliana Smith RN documented in this encounter [facility] 09-28-2024 Telephone encounter Note Patient made aware of provider message. She declines of any black or bloody stools. She will start the iron as advised and recheck labs [facility] 09-28-2024 Miscellaneous Notes Patient made aware of provider message. She declines of any black or bloody stools. She will start the iron as advised and recheck labs Blood counts are ok. Iron is low. Likely due to her history of gi surgery. After surgery, start on iron iron once a day. Recheck cbc and iron in four to six weeks. Make sure no signs of black or bloody stools. View External Labs - Miscellaneous Lab [ID [id number]] View External Labs - Miscellaneous Lab [ID [id number]] View External Labs - [facility]-Blood type [ID [id number]] documented in this encounter [facility] 09-28-2024 Telephone encounter Note Blood counts are ok. Iron is low. Likely due to her history of gi surgery. After surgery, start on iron iron once a day. Recheck cbc and iron in four to six weeks. Make sure no signs of black or bloody stools. [facility] 09-25-2024 Telephone encounter Note View External Labs - Miscellaneous Lab [ID [id number]] View External Labs - Miscellaneous Lab [ID [id number]] View External Labs - [facility]-Blood type [ID [id number]] [facility] 09-22-2024 Telephone encounter Note EKG was retransmitted and printed and faxed as requested. Will scan to the chart as well [facility] 09-22-2024 Miscellaneous Notes EKG was retransmitted and printed and faxed as requested. Will scan to the chart as well Called pt and got phone number for nurse at [facility]. Called and spoke with Carmita and fax # is [phone]. She would like the actual copy of the EKG faxed when we get it. Pt calling in as she is scheduled for surgery on 09/30. Pt had an EKG in the office on 09/[address] Kendrick. No report found yet. Pt states the hospital pre op dept had called over for it and was told no report. Pt wanted to call and confirm that she had it done. Per Dr. Kendrick's OV note under assessment and plan, he documents the following: ASSESSMENT AND PLAN 1. 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 - Scheduled for L5-S1 left microdiscectomy on 09/30/[address] Pizano at [facility]. - No previous anesthesia complications reported. - Ordered EKG to ensure cardiac stability prior to surgery. EKG normal with NSR - Medical clearance form completed. Pt is going to call and see if that will suffice and if it doesn't, she will send [facility] msg requesting report. documented in this encounter [facility] 09-22-2024 Telephone encounter Note Called pt and got phone number for nurse at [facility]. Called and spoke with Carmita and fax # is [phone]. She would like the actual copy of the EKG faxed when we get it. [facility] 09-22-2024 Telephone encounter Note Pt calling in as she is scheduled for surgery on 09/30. Pt had an EKG in the office on 09/[address] Kendrick. No report found yet. Pt states the hospital pre op dept had called over for it and was told no report. Pt wanted to call and confirm that she had it done. Per Dr. Kendrick's OV note under assessment and plan, he documents the following: ASSESSMENT AND PLAN 1. 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 - Scheduled for L5-S1 left microdiscectomy on 09/30/[address] Pizano at [facility]. - No previous anesthesia complications reported. - Ordered EKG to ensure cardiac stability prior to surgery. EKG normal with NSR - Medical clearance form completed. Pt is going to call and see if that will suffice and if it doesn't, she will send [facility] msg requesting report. [facility] 09-14-2024 Note HNO ID: [id number] Author: PAUL KENDRICK MD Service: ? Author Type: Physician Type: Progress Notes Filed: 09/14/2024 20:17 Note Text: Citlali Beckwith is a 38-year-old female with a history of recurrent UTIs, nephrolithiasis, and sleep apnea, presenting for preoperative evaluation prior to L5-S1 microdiscectomy. HPI Preoperative Evaluation: - Scheduled for L5-S1 left microdiscectomy on 09/30/2024 at [facility]. - No known personal or family history of anesthesia complications. - No history of cardiac or pulmonary issues. - No history of coagulopathy or bleeding disorders. - No recent seizures. - No current signs of infection, cough, urinary symptoms, nausea, or emesis. - History of severe sleep apnea, now mild; not currently treated. - History of Angelika-en-Y gastric bypass; previously diagnosed with B12 and folate deficiencies. L5-S1 Disc Herniation: - Symptoms began at the end of November, initially perceived as a cold muscle in the buttock. - MRI revealed a large disc herniation causing left S1 radiculopathy. - Last corticosteroid injection was in April. - Reports significant pain exacerbated by chiropractic adjustments. - Denies known trauma or injury. - She states she has a phone call before surgery but does not require preop testing. Recurrent UTIs: - Ongoing UTI issues secondary to nephrolithiasis. - Recent UTI treated with Keflex. - Currently on low-dose Keflex nightly for UTI prophylaxis. - Concerns about antibiotic resistance due to recurrent infections. - No current urinary symptoms. MEDICATIONS: Current Outpatient Medications Medication Sig cephALEXin (KEFLEX) 250 mg capsule Take 1 capsule by mouth once daily. gabapentin (NEURONTIN) 300 mg capsule Take 3 capsules by mouth daily at bedtime for 180 days. traZODone (DESYREL) 100 mg tablet Take 1 tablet by mouth daily at bedtime. dextroamphetamine SR (DEXEDRINE SPANSULE) 15 mg biphasic capsule TAKE 2 CAPSULES BY MOUTH 2 TIMES A DAY (MORNING AND AFTERNOON) lansoprazole (PREVACID) 30 mg capsule Take 1 capsule by mouth daily before breakfast. 1/2 hr before meal. cyanocobalamin 1,000 mcg/mL Inject 1 mL intramuscularly once every month. levonorgestrel (MIRENA) 20 mcg/24 hours (7 yrs) 52 mg IUD 1 Each by INTRAUTERINE route as directed. valACYclovir (VALTREX) 500 mg tablet Take one tablet by mouth once a day. lidocaine urojet (GLYDO) 2 % jelp Apply 5 mL to affected area three times a day as needed. Acidophilus-Pectin, Soddy-Daisy 25 million cell -100 mg tab Take 1 tablet by mouth every afternoon. Cholecalciferol, Vitamin D3, 25 mcg (1,000 unit) cap Take 1 capsule by mouth once daily. No current facility-administered medications for this visit. ALLERGIES: ALLERGIES Allergen Reactions Adhesive Tape (Maite* Rash Aspirin Unable to take aspirin after having gastric bypass surgery Effexor [Venlafaxin* Other: See Comments Dry heaves, shaking uncotrollable Latex Rash Nsaids (Non-Steroid* due to gastric bypass Wellbutrin [Bupropi* Other: See Comments Seizure-was on overdose. Has taken it since then and done fine. PAST MEDICAL HISTORY Diagnosis Date Anemia ASCUS with positive high risk HPV cervical 05/29/2023 Chlamydia 2003,2008,2013 x3 Herpes simplex virus (HSV) infection History of gastric bypass 09/08/2015 Hypoglycemia 08/12/13 Iron deficiency 08/29/2016 Kidney stone Marijuana use Mental disorder RLS (restless legs syndrome) Amezquita Seizure Overdose of Wellbutrin Seizures (HCC) Thrombosed hemorrhoids 2013 PAST SURGICAL HISTORY Procedure Laterality Date DELIVERY ONLY 2002 , low cervical DELIVERY ONLY N/A 04/23/2016 GASTRIC BYPASS HX 04/2011 HEMORRHOIDECTOMY NEUROPLASTY AND/TRANSPOS MEDIAN NRV CARPAL TUNNE Right 02/11/2020 Right carpal tunnel release PAST SURGICAL HISTORY OF kidney stone PAST SURGICAL HISTORY OF 01/2020 bilateral fallopian tubes removed REPAIR FIRST ABDOMINAL WALL HERNIA 04/08/2018 Hernia repair, incisional REVISE MEDIAN N/CARPAL TUNNEL SURG Left 03/11/2020 FAMILY HISTORY Problem Relation Age of Onset Alcohol/Drug Father Hypertension Maternal Grandfather CHF Heart Maternal Grandfather [place] Cancer Paternal Grandmother throat cancer Stroke Paternal Grandmother Blood Clots No Family History Clotting Disorder No Family History Anesthesia Problems No Family History Social History Tobacco Use Smoking status: Every Day Current packs/day: 0.50 Average packs/day: 0.5 packs/day for 15.0 years (7.5 ttl pk-yrs) Types: Cigarettes Smokeless tobacco: Never Vaping Use Vaping status: Never Used Substance Use Topics Alcohol use: Yes Comment: social Drug use: No Comment: Hx marijuana use Reviewed current medications, allergies, past medical history, surgical history, family history and social history today. REVIEW OF SYSTEMS Cardiovascular: (-) chest pain, (-) swelling Respiratory: (more content not included)... [facility] 09-14-2024 History of Present illness Narrative Citlali Beckwith is a 38-year-old female with a history of recurrent UTIs, nephrolithiasis, and sleep apnea, presenting for preoperative evaluation prior to L5-S1 microdiscectomy. HPI Preoperative Evaluation: - Scheduled for L5-S1 left microdiscectomy on 09/30/2024 at [facility]. - No known personal or family history of anesthesia complications. - No history of cardiac or pulmonary issues. - No history of coagulopathy or bleeding disorders. - No recent seizures. - No current signs of infection, cough, urinary symptoms, nausea, or emesis. - History of severe sleep apnea, now mild; not currently treated. - History of Angelika-en-Y gastric bypass; previously diagnosed with B12 and folate deficiencies. L5-S1 Disc Herniation: - Symptoms began at the end of November, initially perceived as a cold muscle in the buttock. - MRI revealed a large disc herniation causing left S1 radiculopathy. - Last corticosteroid injection was in April. - Reports significant pain exacerbated by chiropractic adjustments. - Denies known trauma or injury. - She states she has a phone call before surgery but does not require preop testing. Recurrent UTIs: - Ongoing UTI issues secondary to nephrolithiasis. - Recent UTI treated with Keflex. - Currently on low-dose Keflex nightly for UTI prophylaxis. - Concerns about antibiotic resistance due to recurrent infections. - No current urinary symptoms. MEDICATIONS: Current Outpatient Medications Medication Sig cephALEXin (KEFLEX) 250 mg capsule Take 1 capsule by mouth once daily. gabapentin (NEURONTIN) 300 mg capsule Take 3 capsules by mouth daily at bedtime for 180 days. traZODone (DESYREL) 100 mg tablet Take 1 tablet by mouth daily at bedtime. dextroamphetamine SR (DEXEDRINE SPANSULE) 15 mg biphasic capsule TAKE 2 CAPSULES BY MOUTH 2 TIMES A DAY (MORNING AND AFTERNOON) lansoprazole (PREVACID) 30 mg capsule Take 1 capsule by mouth daily before breakfast. 1/2 hr before meal. cyanocobalamin 1,000 mcg/mL Inject 1 mL intramuscularly once every month. levonorgestrel (MIRENA) 20 mcg/24 hours (7 yrs) 52 mg IUD 1 Each by INTRAUTERINE route as directed. valACYclovir (VALTREX) 500 mg tablet Take one tablet by mouth once a day. lidocaine urojet (GLYDO) 2 % jelp Apply 5 mL to affected area three times a day as needed. Acidophilus-Pectin, Soddy-Daisy 25 million cell -100 mg tab Take 1 tablet by mouth every afternoon. Cholecalciferol, Vitamin D3, 25 mcg (1,000 unit) cap Take 1 capsule by mouth once daily. No current facility-administered medications for this visit. ALLERGIES: ALLERGIES Allergen Reactions Adhesive Tape (Maite* Rash Aspirin Unable to take aspirin after having gastric bypass surgery Effexor [Venlafaxin* Other: See Comments Dry heaves, shaking uncotrollable Latex Rash Nsaids (Non-Steroid* due to gastric bypass Wellbutrin [Bupropi* Other: See Comments Seizure-was on overdose. Has taken it since then and done fine. PAST MEDICAL HISTORY Diagnosis Date Anemia ASCUS with positive high risk HPV cervical 05/29/2023 Chlamydia 2003,2008,2013 x3 Herpes simplex virus (HSV) infection History of gastric bypass 09/08/2015 Hypoglycemia 08/12/13 Iron deficiency 08/29/2016 Kidney stone Marijuana use Mental disorder RLS (restless legs syndrome) Amezquita Seizure Overdose of Wellbutrin Seizures (HCC) Thrombosed hemorrhoids 2013 PAST SURGICAL HISTORY Procedure Laterality Date DELIVERY ONLY 2002 , low cervical DELIVERY ONLY N/A 04/23/2016 GASTRIC BYPASS HX 04/2011 HEMORRHOIDECTOMY NEUROPLASTY &/TRANSPOS MEDIAN NRV CARPAL TUNNE Right 02/11/2020 Right carpal tunnel release PAST SURGICAL HISTORY OF kidney stone PAST SURGICAL HISTORY OF 01/2020 bilateral fallopian tubes removed REPAIR FIRST ABDOMINAL WALL HERNIA 04/08/2018 Hernia repair, incisional REVISE MEDIAN N/CARPAL TUNNEL SURG Left 03/11/2020 FAMILY HISTORY Problem Relation Age of Onset Alcohol/Drug Father Hypertension Maternal Grandfather CHF Heart Maternal Grandfather [place] Cancer Paternal Grandmother throat cancer Stroke Paternal Grandmother Blood Clots No Family History Clotting Disorder No Family History Anesthesia Problems No Family History Social History Tobacco Use Smoking status: Every Day Current packs/day: 0.50 Average packs/day: 0.5 packs/day for 15.0 years (7.5 ttl pk-yrs) Types: Cigarettes Smokeless tobacco: Never Vaping Use Vaping status: Never Used Substance Use Topics Alcohol use: Yes Comment: social Drug use: No Comment: Hx marijuana use Reviewed current medications, allergies, past medical history, surgical history, family history and social history today. REVIEW OF SYSTEMS Cardiovascular: (-) chest pain, (-) swelling Respiratory: (-) breathing problems, (-) cough Gastrointestinal: (-) nausea, (-) vomiting Genitourinary: (-) urinary symptoms Musculoskeletal: (+) buttock pain Neurological: (-) seizures Hematologic/Lymphatic: (-) bleeding HEALTH MAINTENANCE: Reviewed health maintenance issues today and recommended the following in detail. Cervical Cancer Screening due on 05/17/2024 LAB REVIEWED: Labs: - Urine culture: 100,000 CFU of Escherichia coli Imaging: - MRI: Large disc herniation causing left S1 radiculopathy VITALS: BP 122/64 Pulse 95 Wt 93.4 kg (206 lb) LMP 05/10/2021 SpO2 98% BMI 34.28 kg/m Last 4 Encounter Wt Readings: Date: Wt: 09/14/2024 93.4 kg (206 lb) 09/01/2024 93.9 kg (207 lb) 01/13/2024 91.2 kg (201 lb) 05/17/2023 89.1 kg (196 lb 6.4 oz) PHYSICAL EXAMINATION: GENERAL: NAD, alert and oriented. SKIN: Unremarkable, no rash or skin lesions. NECK: Supple, no lymphadenopathy, normal thyroid, no carotid bruits. LUNGS: Clear to auscultation bilaterally, no wheezes/rhonchi/rales. HEART: Regular rate and rhythm, no murmurs. No ectopy. EXTREMITIES: Normal, no deformities, no skin discoloration, no edema. NEURO: Awake, alert and oriented x3, cranial nerves II-XII grossly intact, normal gait, no involuntary motions. ASSESSMENT AND PLAN 1. 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 - Scheduled for L5-S1 left microdiscectomy on 09/30/[address] Pizano at [facility]. - No previous anesthesia complications reported. - Ordered EKG to ensure cardiac stability prior to surgery. EKG normal with NSR - Medical clearance form completed. 2. RLS (restless legs syndrome) (G25.81) stable. 3. Seizures (HCC) (R56.9) - No recent seizure activity reported; history of seizures secondary to medication. 4. Carpal tunnel syndrome, unspecified laterality (G56.00) - stable. 5. FLOR (obstructive sleep apnea) (G47.33) - Previously severe, now mild tycw-Ipmv-gc-Y gastric bypass. - No current treatment; anesthesia team to be informed for postoperative monitoring. 6. Other vitamin B12 deficiency anemia (D51.8) 7. Other specified nutritional anemias (D53.8) 8. Vitamin D deficiency (E55.9) 9. Folic acid deficiency (non anemic) (E53.8) - History of deficiencies; ordered preoperative labs including CBC, B12, folate, and vitamin D levels. - Labs to be completed at patient's convenience , will do soon if can find transportation. 10. GERD without esophagitis (K21.9) - stable. 11. Hyperbilirubinemia (E80.6) - stable. 12. History of Angelika-en-Y gastric bypass (Z98.84) - as above. check labs. 13. Frequent UTI (N39.0) - Chronic UTIs secondary to kidney stones; currently on Keflex prophylaxis. - Recent urine culture showed 100,000 colonies of E. coli. - Ordered urine dipstick test today to ensure clearance before surgery. - urine negative. 14. Screening, heart disease, ischemic (Z13.6) - No history of cardiac issues; EKG ordered to rule out ischemic heart disease prior to surgery. (See patient after visit summary for additional instructions to patient) Paul Kendrick MD Recording using [facility] software for draft documentation of the visit was discussed with the patient/authorized financial services sales representative; all questions welcomed and answered. Patient/authorized financial services sales representative agreed to proceed documented in this encounter [facility] 09-14-2024 Instructions Paul Kendrick MD - 09/14/2024 7:44 PM EDT - Expect a phone call on September 14 to confirm your surgery time for the L5-S1 left microdiscectomy with Dr. Pizano at [facility], and another call the day before. If you do not receive these calls, contact the surgical scrub technician s office. - Arrange blood tests (complete blood count, B12 level, iron, folate) at your convenience - Continue taking your nightly dose of Keflex as prescribed for your urinary tract infection prophylaxis. - Remind the surgical and anesthesia teams that you have mild sleep apnea so they can monitor your breathing after surgery. documented in this encounter [facility] 09-08-2024 Evaluation note Diagnosis Onset Date Resolution Lumbar disc herniation with radiculopathy acute September 08 1:35pm [facility] Work Phone: [phone]) 132-211806-03-2025 Instructions* Patient Instructions* Marry Paredes APRN.JESICA - 09/01/2024 12:13 PM EDT - Continue your nightly cephalexin; refill has been sent to [facility]. - Start clindamycin and fluconazole (Diflucan) from your local pharmacy to treat your current bacterial and yeast symptoms. - You may use nitrofurantoin (Macrobid) for urinary infection management; prescription sent to [facility]. - A urine culture has been sent; results are expected in 1-2 days and will guide any changes in your treatment. - Your gabapentin prescription has been renewed; please pick it up at your pharmacy. - Follow up with Dr. Degroot (urologist) for long-term management of your antibiotic regimen. [facility] NoteHNO ID: [id number] Author: MARRY PAREDES APRN.CNP Service: ? Author Type: Nurse Practitioner Type: Progress Notes Filed: 09/01/2024 12:14 Note Text: This is a 38 year old female who presents today with: Patient presents with: UTI HISTORY OF PRESENT ILLNESS: Citlali Beckwith is a 38 year old female. Patient presents with: UTI Ran out of cephalexin that she uses daily for UTI prevention with history of kidney stones. Burning with urination. No fever or chills. Citlali is a 38-year-old female with a history of recurrent UTIs and nephrolithiasis, presenting for UTI prophylaxis management and back pain. Recurrent UTIs: - History of recurrent UTIs, managed with daily cephalexin. - Ran out of cephalexin; last dose taken on Saturday. - Noted gradual worsening of symptoms since missing doses. - Reports that cephalexin has been less effective over the past year. - Denies fever or chills. - Allergic to Flagyl; tolerates Macrobid. Nephrolithiasis: - History of nephrolithiasis; taking cephalexin for prophylaxis. Back Pain: - Severe back pain; scheduling back surgery next week. - Previously prescribed gabapentin, but prescription . PAST MEDICAL HISTORY: PAST MEDICAL HISTORY Diagnosis Date Anemia ASCUS with positive high risk HPV cervical 05/29/2023 Chlamydia 2003,2008,2013 x3 Herpes simplex virus (HSV) infection History of gastric bypass 09/08/2015 Hypoglycemia 08/12/13 Iron deficiency 08/29/2016 Kidney stone Marijuana use Mental disorder RLS (restless legs syndrome) Amezquita Seizure Overdose of Wellbutrin Seizures (HCC) Thrombosed hemorrhoids 2013 PAST SURGICAL HISTORY Procedure Laterality Date DELIVERY ONLY 2002 , low cervical DELIVERY ONLY N/A 04/23/2016 GASTRIC BYPASS HX 04/2011 HEMORRHOIDECTOMY NEUROPLASTY AND/TRANSPOS MEDIAN NRV CARPAL TUNNE Right 02/11/2020 Right carpal tunnel release PAST SURGICAL HISTORY OF kidney stone PAST SURGICAL HISTORY OF 01/2020 bilateral fallopian tubes removed REPAIR FIRST ABDOMINAL WALL HERNIA 04/08/2018 Hernia repair, incisional REVISE MEDIAN N/CARPAL TUNNEL SURG Left 03/11/2020 ALLERGIES Adhesive Tape (Rosins), Aspirin, Effexor [Venlafaxine], Latex, Nsaids (Non-Steroidal Anti-Inflammatory Drug), and Wellbutrin [Bupropion Hcl] MEDICATIONS Current Outpatient Medications Medication Sig cephALEXin (KEFLEX) 250 mg capsule Take 1 capsule by mouth once daily. fluconazole (DIFLUCAN) 150 mg tablet Take 1 tablet by mouth one time only for 1 dose. clindamycin phosphate 2 % vaginal cream Use 1 applicatorful vaginally daily at bedtime for 7 days. traZODone (DESYREL) 100 mg tablet Take 1 tablet by mouth daily at bedtime. traZODone (DESYREL) 100 mg tablet Take 1 tablet by mouth daily at bedtime for 7 days. dextroamphetamine SR (DEXEDRINE SPANSULE) 15 mg biphasic capsule TAKE 2 CAPSULES BY MOUTH 2 TIMES A DAY (MORNING AND AFTERNOON) gabapentin (NEURONTIN) 300 mg capsule Take 3 capsules by mouth daily at bedtime for 180 days. lansoprazole (PREVACID) 30 mg capsule Take 1 capsule by mouth daily before breakfast. 1/2 hr before meal. cyanocobalamin 1,000 mcg/mL Inject 1 mL intramuscularly once every month. cyanocobalamin 1,000 mcg/mL Inject 1 mL intramuscularly once every month. valACYclovir (VALTREX) 500 mg tablet Take one tablet by mouth once a day. doxycycline hyclate (VIBRAMYCIN) 100 mg capsule Take 1 capsule by mouth two times a day. lidocaine urojet (GLYDO) 2 % jelp Apply 5 mL to affected area three times a day as needed. Acidophilus-Pectin, Soddy-Daisy 25 million cell -100 mg tab Take 1 tablet by mouth every afternoon. Cholecalciferol, Vitamin D3, 25 mcg (1,000 unit) cap Take 1 capsule by mouth once daily. Cholecalciferol, Vitamin D3, 25 mcg (1,000 unit) cap Take 1 capsule by mouth once daily. levonorgestrel (MIRENA) 20 mcg/24 hours (7 yrs) 52 mg IUD 1 Each by INTRAUTERINE route as directed. No current facility-administered medications for this visit. FAMILY HISTORY Problem Relation Age of Onset Alcohol/Drug Father Hypertension Maternal Grandfather CHF Heart Maternal Grandfather [place] Cancer Paternal Grandmother throat cancer Stroke Paternal Grandmother Blood Clots No Family History Clotting Disorder No Family History Anesthesia Problems No Family History Social History Tobacco Use Smoking status: Every Day Current packs/day: 0.50 Average packs/day: 0.5 packs/day for 15.0 years (7.5 ttl pk-yrs) Types: Cigarettes Smokeless tobacco: Never Vaping Use Vaping status: Never Used Substance Use Topics Alcohol use: Yes Comment: social Drug use: No Comment: Hx marijuana use REVIEW OF SYSTEMS Constitutional: (-) fever, (-) chills Musculoskeletal: (+) back pain EXAM: BP 118/78 Pulse 84 Wt 93.9 kg (207 lb) LMP 05/10/2021 SpO2 98% BMI 34.45 kg/m? PHYSICAL EXAM: GENERAL: NAD, alert and oriented NECK: Supple, no lymph (more content not included)...[facility] 09-01-2024 History of Present illness Narrative* Marry Paredes APRN.CERTIFIED CODING SPECIALIST - 09/01/2024 12:00 PM EDT This is a 38 year old female who presents today with: Patient presents with: UTI HISTORY OF PRESENT ILLNESS: Citlali Beckwith is a 38 year old female. Patient presents with: UTI Ran out of cephalexin that she uses daily for UTI prevention with history of kidney stones. Burningwith urination. No fever or chills. Citlali is a 38-year-old female with a history of recurrent UTIs and nephrolithiasis, presenting for UTI prophylaxis management and back pain. Recurrent UTIs: - History of recurrent UTIs, managed with daily cephalexin. - Ran out of cephalexin; last dose taken on Saturday. - Noted gradual worsening of symptoms since missing doses. - Reports that cephalexin has been less effective over the past year. - Denies fever or chills. - Allergic to Flagyl; tolerates Macrobid. Nephrolithiasis: - History of nephrolithiasis; taking cephalexin for prophylaxis. Back Pain: - Severe back pain; scheduling back surgery next week. - Previously prescribed gabapentin, but prescription . PAST MEDICAL HISTORY: PAST MEDICAL HISTORY Diagnosis Date Anemia ASCUS with positive high risk HPV cervical 05/29/2023 Chlamydia 2004,2009,2014 x3 Herpes simplex virus (HSV) infection History of gastric bypass 09/08/2015 Hypoglycemia 08/12/13 Iron deficiency 08/29/2016 Kidney stone Marijuana use Mental disorder RLS (restless legs syndrome) Amezquita Seizure Overdose of Wellbutrin Seizures (HCC) Thrombosed hemorrhoids 2013 PAST SURGICAL HISTORY Procedure Laterality Date DELIVERY ONLY 2002 , low cervical DELIVERY ONLY N/A 04/23/2016 GASTRIC BYPASS HX 04/2011 HEMORRHOIDECTOMY NEUROPLASTY &/TRANSPOS MEDIAN NRV CARPAL TUNNE Right 02/11/2020 Right carpal tunnel release PAST SURGICAL HISTORY OF kidney stone PAST SURGICAL HISTORY OF 01/2020 bilateral fallopian tubes removed REPAIR FIRST ABDOMINAL WALL HERNIA 04/08/2018 Hernia repair, incisional REVISE MEDIAN N/CARPAL TUNNEL SURG Left 03/11/2020 ALLERGIES Adhesive Tape (Rosins), Aspirin, Effexor [Venlafaxine], Latex, Nsaids (Non-Steroidal Anti-Inflammatory Drug), and Wellbutrin [Bupropion Hcl] MEDICATIONS Current Outpatient Medications Medication Sig cephALEXin (KEFLEX) 250 mg capsule Take 1 capsule by mouth once daily. fluconazole (DIFLUCAN) 150 mg tablet Take 1 tablet by mouth one time only for 1 dose. clindamycin phosphate 2 % vaginal cream Use 1 applicatorful vaginally daily at bedtime for 7 days. traZODone (DESYREL) 100 mg tablet Take 1 tablet by mouth daily at bedtime. traZODone (DESYREL) 100 mg tablet Take 1 tablet by mouth daily at bedtime for 7 days. dextroamphetamine SR (DEXEDRINE SPANSULE) 15 mg biphasic capsule TAKE 2 CAPSULES BY MOUTH 2 TIMES ADAY (MORNING AND AFTERNOON) gabapentin (NEURONTIN) 300 mg capsule Take 3 capsules by mouth daily at bedtime for 180 days. lansoprazole (PREVACID) 30 mg capsule Take 1 capsule by mouth daily before breakfast. 1/2 hr beforemeal. cyanocobalamin 1,000 mcg/mL Inject 1 mL intramuscularly once every month. cyanocobalamin 1,000 mcg/mL Inject 1 mL intramuscularly once every month. valACYclovir (VALTREX) 500 mg tablet Take one tablet by mouth once a day. doxycycline hyclate (VIBRAMYCIN) 100 mg capsule Take 1 capsule by mouth two times a day. lidocaine urojet (GLYDO) 2 % jelp Apply 5 mL to affected area three times a day as needed. Acidophilus-Pectin, Soddy-Daisy 25 million cell -100 mg tab Take 1 tablet by mouth every afternoon. Cholecalciferol, Vitamin D3, 25 mcg (1,000 unit) cap Take 1 capsule by mouth once daily. Cholecalciferol, Vitamin D3, 25 mcg (1,000 unit) cap Take 1 capsule by mouth once daily. levonorgestrel (MIRENA) 20 mcg/24 hours (7 yrs) 52 mg IUD 1 Each by INTRAUTERINE route as directed. No current facility-administered medications for this visit. FAMILY HISTORY Problem Relation Age of Onset Alcohol/Drug Father Hypertension Maternal Grandfather CHF Heart Maternal Grandfather [place] Cancer Paternal Grandmother throat cancer Stroke Paternal Grandmother Blood Clots No Family History Clotting Disorder No Family History Anesthesia Problems No Family History Social History Tobacco Use Smoking status: Every Day Current packs/day: 0.50 Average packs/day: 0.5 packs/day for 15.0 years (7.5 ttl pk-yrs) Types: Cigarettes Smokeless tobacco: Never Vaping Use Vaping status: Never Used Substance Use Topics Alcohol use: Yes Comment: social Drug use: No Comment: Hx marijuana use REVIEW OF SYSTEMS Constitutional: (-) fever, (-) chills Musculoskeletal: (+) back pain EXAM: BP 118/78 Pulse 84 Wt 93.9 kg (207 lb) LMP 05/10/2021 SpO2 98% BMI 34.45 kg/m PHYSICAL EXAM: GENERAL: NAD, alert and oriented NECK: Supple, no lymphadenopathy, normal thyroid, no carotid bruits. LUNGS: Clear to auscultation bilaterally, no wheezes/rhonchi/rales. HEART: Regular rate and rhythm, no murmurs. No ectopy. LABS: urine dip- + nitrates, leukocytes, and mod blood ASSESSMENT/PLAN: 1. Recurrent UTI (urinary tract infection) (N39.0) - Patient has been on daily cephalexin prophylaxis prescribed by urology, but has run out and has not taken it since Saturday night. - Reports feeling progressively worse each day without the medication. - Urine culture ordered to identify causative organism and guide further treatment. - Refilled cephalexin for daily use. - Prescribed Macrobid for 7 days; patient has tolerated this medication well in the past. - Discussed that bacterial resistance can develop, necessitating changes in antibiotic therapy. - Advised patient to continue using clindamycin and Diflucan locally as needed. - Long-term management to be addressed by Dr. Degroot after culture results are available. 2. RLS (restless legs syndrome) (G25.81) - Renew gabapentin Discussed treatment plan and patient voices understanding. Patient's questions answered appropriately. Medications and potential side effects were discussed and patient voices understanding. Return to the office as scheduled or as needed for worsening/no improvement. Marry Paredes APRN.CERTIFIED CODING SPECIALIST [facility] Note* Addendum Note - Paul Kendrick MD - 08/27/2024 8:21 AM EDTAddended by: PAUL KENDRICK on: 08/27/2024 08:21 AM Modules accepted: Orders [facility]05-29-2025 Miscellaneous Notes* Addendum Note - Paul Kendrick MD - 08/27/2024 8:21 AM EDTAddended by: PAUL KENDRICK on: 08/27/2024 08:21 AM Modules accepted: Orders * Telephone Encounter - Isabel Rodriges LPN - 08/27/2024 7:03 AM EDT Prescription Refill Information The patient has been identified by name and date of : Yes Caregiver verified no other encounters exist for this prescription request: Yes Caregiver confirmed with patient/requestor that no other refills are due, in the near future, with this provider at this time: Yes The last office visit in the department: Oct Does the patient have a future office visit with this provider/department: No Requested Prescriptions Pending Prescriptions Disp Refills traZODone (DESYREL) 100 mg tablet 90 tablet 1 Sig: Take 1 tablet by mouth daily at bedtime. Isabel Rodriges LPN August 27, 2024 7:04 AM documented in this encounter[facility]05-29-2025 Telephone encounter Note * Telephone Encounter - Isabel Rodriges LPN - 08/27/2024 7:03 AM EDT Prescription Refill Information The patient has been identified by name and date of : Yes Caregiver verified no other encounters exist for this prescription request: Yes Caregiver confirmed with patient/requestor that no other refills are due, in the near future, with this provider at this time: Yes The last office visit in the department: Oct Does the patient have a future office visit with this provider/department: No Requested Prescriptions Pending Prescriptions Disp Refills traZODone (DESYREL) 100 mg tablet 90 tablet 1 Sig: Take 1 tablet by mouth daily at bedtime. Isabel Rodriges LPN August 27, 2024 7:04 AM [facility]03-18-2025 Discharge summary Author Ambrose Calixto [facility] Note Date/Time June 16, 2024 8:5 5am [facility] Physical [facility] [address] [place] [address] [address] [place] [address] / REHABILITATION SERVICES DISCHARGE SUMMARY MR#: [id number] Acct: [id number] Name: CITLALI BECKWITH Rep #: [id number] : 1985 38 From: Ambrose Calixto PT, ATC Referring Dr.: Dr. Shayne Blas MD Status : REG RCR Insurance: [employer] INSURANCE Patient Information Patient Information: CITLALI BECKWITH was seen in my office for initial evaluation on 04/09/24. The following Plan of Care was established for this patient: POC Established Initial Frequency: 2x /Week Initial Duration: 2 Weeks Anticipated Interventions Patient/Client Instruction: Educate patient on: Condition and Plan of Care For the Purpose of:: To improve self management Therapeutic Exercise to Include: Strength training, Body mechanics, Postural training, Dynamic Lumbar Stabilization and Shyla Exercises For the Purpose of:: To decrease pain, To increase ROM and To improve muscle performance and motor function Last Seen Last Seen: This patient was last seen in our office . Pertinent comments regarding their Physical therapy will appear below: Pt has not returned for greater than 30 days and is discontinued at this time. At this point I will be discontinuing this patient from physical therapy. I would be happy to see this patient again in the future if found appropriate by the physician. Thank you! Ambrose Calixto PT, ATC Balance/Gait/Functional tests Balance/Special Test Scores Oswestry Low Back Score: 36 <Electronically signed by Ambrose Calixto PT, ATC> 06/16/24 0855 CC: Dr. Shayne Blas MD; Dr. Paul Kendrick MD ~ [facility] Signed [facility] Work Phone: 1(101) 897-781003-18-2025 Discharge summary [facility] [address] [place] [address] [address] [place] [address] / REHABILITATION SERVICES DISCHARGE SUMMARY MR#: [id number] Acct: [id number] Name: CITLALI BECKWITH Rep #: [id number] : 1985 38 From: Ambrose Calixto PT, ATC Referring Dr.: Dr. Shayne Blas MD Status : REG RCR Insurance: [employer] SELF PAY INSURANCE Patient Information Patient Information: CITLALI BECKWITH was seen in my office for initial evaluation on 04/09/24. The following Plan of Care was established for this patient: POC Established Initial Frequency: 2x /Week Initial Duration: 2 Weeks Anticipated Interventions Patient/Client Instruction: Educate patient on: Condition and Plan of Care For the Purpose of:: To improve self management Therapeutic Exercise to Include: Strength training, Body mechanics, Postural training, Dynamic Lumbar Stabilization and Shyla Exercises For the Purpose of:: To decrease pain, To increase ROM and To improve muscle performance and motor function Last Seen Last Seen: This patient was last seen in our office . Pertinent comments regarding their Physical therapy willappear below: Pt has not returned for greater than 30 days and is discontinued at this time. At this point I will be discontinuing this patient from physical therapy. I would be happy to see this patient again in the future if found appropriate by the physician. Thank you! Ambrose Calixto, PT, ATC Balance/Gait/Functional tests Balance/Special Test Scores Oswestry Low Back Score: 36 06/16/24 0855 CC: Dr. Shayne Blas MD; Dr. Paul Kendrick MD ~ [facility] Signed [facility]02-04-2025 Evaluation note* Diagnosis Onset Date Resolution Status Admit Date Lumbar disc herniation acute Fe brubronx 2024 8:12am [facility] Work Phone: 1(578) 431-223512-04-2024 Telephone encounter Note* Telephone Encounter - Gina Kim RN - 03/04/2024 11:10 AM EST Patient calls to request referral to pain management, demographics, and x-ray results be faxed to Dr. Roth. Faxed per request to [phone]. Gina Kim RN [facility]12-04-2024 Miscellaneous Notes* Telephone Encounter - Gina Kim RN - 03/04/2024 11:10 AM EST Patient calls to request referral to pain management, demographics, and x-ray results be faxed to Dr. Roth. Faxed per request to [phone]. Gina Kim RN documented in this encounterU[facility]12-04-2024 NoteHNO ID: [id number] Author: ?, ?, ? Service: ? Author Type: ? Type: Progress Notes Filed: 03/04/2024 11:05 Note Text: POPULATION HEALTH NAVIGATION OUTREACH Action/[facility] Support: Called pt to schedule an appt in Pain Management. Wants to see a provider closer to home Reason for Outreach Care Gap/HCC or Scheduling Wellness Visits Care Gaps due: N/A Patient Contacted: Spoke to patient/parent/or legal guardian Patient identified by name and : Yes Care Gap/HCC/Scheduling Wellness actions taken: Patient declined: Patient Declines Navigation Scheduling / Outreach Navigation Signature: Paulina Wiley March 04, 2024 11:04 [facility]12-04-2024 History of Present illness Narrative* Paulina Wiley - 03/04/2024 11:04 AM EST POPULATION HEALTH NAVIGATION OUTREACH Action/[facility] Support: Called pt to schedule an appt in Pain Management. Wants to see a provider closer to home Reason for Outreach Care Gap/HCC or Scheduling Wellness Visits Care Gaps due: N/A Patient Contacted: Spoke to patient/parent/or legal guardian Patient identified by name and : Yes Care Gap/HCC/Scheduling Wellness actions taken: Patient declined: Patient Declines Navigation Scheduling / Outreach Navigation Signature: Paulina Wiley March 04, 2024 11:04 AM documented in this encounterU[facility]12-04-2024 NotePatient Outreach (NETNAV) CITLALI BECKWITH ([id number]) 1985 F Date Time Provider Department 03/04/24 NO PCP NETNAV During your visit today, we recorded the following information about you: Paulina Wiley 03/04/2024 11:05 AM Signed POPULATION HEALTH NAVIGATION OUTREACH [facility] Support: Called pt to schedule an appt in Pain Management. Wants to see a provider closer to home Reason for Outreach Care Gap/HCC or Scheduling Wellness Visits Care Gaps due: N/A Patient Contacted: Spoke to patient/parent/or legal guardian Patient identified by name and : Yes Care Gap/HCC/Scheduling Wellness actions taken: Patient declined: Patient Declines Navigation Scheduling / Outreach Navigation Signature: Paulina Wiley March 04, 2024 11:04 AM Allergies As of Date: 03/04/2024 Noted Allergy Reaction ADHESIVE TAPE (ROSINS) 08/14/2013 2 - Rash ASPIRIN 08/14/2013 Comments: Unable to take aspirin after having gastric bypass surgery EFFEXOR (VENLAFAXINE) 05/01/2017 14 - Other: See Comments Comments: Dry heaves, shaking uncotrollable LATEX 07/09/2007 2 - Rash NSAIDS (NON-STEROIDAL ANTI-INFLAM*07/05/2014 Comments: due to gastric bypass WELLBUTRIN (BUPROPION HCL) 11/28/2006 14 - Other: See Comments Comments: Seizure-was on overdose. Has taken it since then and done fine. Date Reviewed: 01/13/2024 Reviewed by: Marry Paredes APRN.CERTIFIED CODING SPECIALIST - Fully Assessed Prescriptions as of 03/04/2024 - dextroamphetamine SR (DEXEDRINE SPANSULE) 15 mg biphasic capsule TAKE 2 CAPSULES BY MOUTH 2 TIMES A DAY (MORNING AND AFTERNOON) - gabapentin (NEURONTIN) 300 mg capsule Take 3 capsules by mouth daily at bedtime for 180 days. - lansoprazole (PREVACID) 30 mg capsule Take 1 capsule by mouth daily before breakfast. 1/2 hr before meal. - traZODone (DESYREL) 100 mg tablet Take 1 tablet by mouth daily at bedtime. - cyanocobalamin 1,000 mcg/mL Inject 1 mL intramuscularly once every month. - cyanocobalamin 1,000 mcg/mL Inject 1 mL intramuscularly once every month. - valACYclovir (VALTREX) 500 mg tablet Take one tablet by mouth once a day. - doxycycline hyclate (VIBRAMYCIN) 100 mg capsule Take 1 capsule by mouth two times a day. - lidocaine urojet (GLYDO) 2 % jelp Apply 5 mL to affected area three times a day as needed. - cephALEXin (KEFLEX) 250 mg capsule TAKE ONE TABLET BY MOUTH AT BEDTIME FOR 90 DAYS, THEN AFTER intercourse - Acidophilus-Pectin, Soddy-Daisy 25 million cell -100 mg tab Take 1 tablet by mouth every afternoon. - Cholecalciferol, Vitamin D3, 25 mcg (1,000 unit) cap Take 1 capsule by mouth once daily. - Cholecalciferol, Vitamin D3, 25 mcg (1,000 unit) cap Take 1 capsule by mouth once daily. - levonorgestrel (MIRENA) 20 mcg/24 hours (7 yrs) 52 mg IUD 1 Each by INTRAUTERINE route as directed. Problem List As Of Date 03/04/2024 Noted Resolved ADJUSTMENT REACTION NOS [F43.20] 12/19/2006 07/14/2007 Seborrheic dermatitis, unspecified [L21.9] 06/12/2007 08/29/2016 Attention deficit disorder [F98.8] 07/14/2007 08/29/2016 Adjustment disorder with depressed mood [F43.21]07/14/2007 08/29/2016 Tobacco use [Z72.0] 08/26/2007 Routine general medical examination at [facility]*06/30/2009 09/13/2015 Class: Chronic Routine gynecological examination [Z01.419] 06/30/2009 09/13/2015 Class: Chronic Morbid obesity (HCC) [E66.01] 06/30/2009 09/13/2015 Insomnia [G47.00] 06/30/2009 09/13/2015 Thrombosed external hemorrhoid [K64.5] 08/14/2013 09/13/2015 Recurrent UTI (urinary tract infection) complic*07/22/2014 08/29/2016 Kidney stones [N20.0] 07/22/2014 09/13/2015 Marijuana abuse [F12.10] 04/27/2015 08/29/2016 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] 09/08/2015 12/04/2019 History of delivery, currently pregnan*09/08/2015 05/07/2016 History of recurrent UTI (urinary tract infecti*09/08/2015 History of herpes genitalis [Z86.19] 09/08/2015 History of depression [Z86.59] 09/08/2015 Tobacco use in [O99.330] 09/08/2015 08/29/2016 History of marijuana use [F12.91] 09/08/2015 H/O macrosomia in infant in prior , cu*09/08/2015 08/29/2016 Patient requested diagnostic testing [Z01.89] 09/08/2015 11/21/2015 History of kidney stones [Z87.442] 09/08/2015 09/13/2015 Trichomonal vaginitis during in secon*11/28/2015 08/29/2016 Urgency of urination [R39.15] 01/19/2016 08/29/2016 Frequency of micturition [R35.0] 01/19/2016 08/29/2016 UTI (urinary tract infection) in , ant*02/16/2016 02/16/2016 RLS (restless legs syndrome) [G25.81] 08/29/2016 Iron deficiency [E61.1] 08/29/2016 12/04/2019 Anemia due to vitamin B12 deficiency [D51.9] 08/29/2016 Anemia [D64.9] 08/07/2017 Cervical high risk HPV (human papillomavirus) t*08/06/2018 FLOR (obstructive sleep apnea) [G47.33] 10/28/2019 Seizures (HCC) [R56.9] 03/09/2020 History of Angelika-en-Y gastric bypass [Z98.84] 12 (more content not included)... [facility]12-03-2024 Telephone encounter Note* Telephone Encounter - Meche Walsh MA - 03/03/2024 1:50 PM EST Patient was notified and will do pain management please file order Meche Walsh MA [facility]12-03-2024 Miscellaneous Notes* Telephone Encounter - Meche Walsh MA - 03/03/2024 1:50 PM EST Patient was notified and will do pain management please file order Meche Walsh MA * Telephone Encounter - Paul Kendrick MD - 03/03/2024 11:04 AM EST Xray shows some degenerative changes. I can refer her to pain management or spine med. Let me know if interested. * Telephone Encounter - Nicole Duff MA - 03/03/2024 8:26 AM EST X-ray scanned in for review Nicole Duff MA March 03, 2024 8:27 AM * Telephone Encounter - Liliana Smith, CARINA - 03/02/2024 12:56 PM EST Pt called and is notified of providers message and instructions. Pt voices understanding. She states she has been to the chiropractor and they told her she has two ruptured discs. Pt states she doesn't have enough money to keep seeing doctors when I asked if she would like me to make her an appointment. She states I would have to have an appointment with them and that would be a co-pay, then theywould refer me to a specialist and that co-pay would be double. Pt states she will wait for the results from the x-rays from [facility]. Liliana Smith, RN * Telephone Encounter - Paul Kendrick MD - 03/02/2024 12:09 PM EST Usually injections like that involve seeing someone like pain management, not ortho. What she describes actually sounds like spine. Hard to decide without one of us seeing her. Sometimes do physical therapy also. Likely needs seen * Telephone Encounter - Mirian Campbell LPN - 03/02/2024 11:46 AM EST Citlali calling with complaints of a shifted pelvis. Complains of pain in left buttocks that radiates down her thigh into calf and causes foot to be numb. Denies any incontinence in bowel or bladder. Has been seeing the chiropractor with no relief in the pain. Rates pain 10:10 currently. Pain started about 2 months ago and has worsened in the last 3 weeks. Did see a nurse at her work who gave her prednisone 40mg daily for 10 days but this was not effective at all. Denies any injury. Had x-ray completed today at [facility] but not resulted yet. Is asking about a cortisone injection? Is aware may need to see ortho for injection and she had seen Dr. Coronado in the past. Is not able to afford multiply co-payments and declined an appointment with PCP at this time. documented in [facility] encounter[facility]12-[facility]-2024 Telephone encounter Note * Telephone Encounter - Paul Kendrick MD - 03/03/2024 11:04 AM EST Xray shows some degenerative changes. I can refer her to pain management or spine med. Let me know if interested. [facility]12-03-[facility] Telephone encounter Note* Telephone Encounter - Liliana Smith RN - 03/03/2024 8:36 AM EST Protocol recommends go to ER now. Pt will be going to [facility] ER. Care plan reviewed with patient. Patient voices understanding. Advised patient that if symptoms get worse to call 911. Reason for Disposition [1] Unable to urinate (or only a few drops) > 4 hours AND [2] bladder feels very full (e.g., palpable bladder or strong urge to urinate) Answer Assessment - Initial Assessment Questions 1. ONSET: Pain begain 2 1/2 months ago, excruciating pain began 3 weeks ago 2. LOCATION: Pt reports it's whole lower back, goes into L buttock, L thigh, L calf, and L foot. 3. SEVERITY: - MILD (1-3): Doesn't interfere with normal activities. - MODERATE (4-7): Interferes with normal activities or awakens from sleep. - SEVERE (8-10): Excruciating pain, unable to do any normal activities. 1000/10 constant for past 3 weeks but transfers over past 3 weeks and sharp burning. 4. PATTERN: The pain constant. 5. RADIATION: The pain shoots into L leg. 6. CAUSE: Does not know. 7. BACK OVERUSE: Denies any recent lifting of heavy objects, strenuous work or exercise. 8. MEDICINES: Has taken Ibuprofen for the pain, doesn't take the edge off. 9. NEUROLOGIC SYMPTOMS: Weakness in the L side but states she can control it, numbness in L calf and foot, or problems with bowel/bladder control (When has to urinate has to push it out). 10. OTHER SYMPTOMS: Pt denies fever, abdomen pain, burning with urination, blood in urine. 11. : Pt had a tubal but has a Mirania. Protocols used: Back [id number] [facility]12-03-2024 Miscellaneous Notes* Telephone Encounter - Liliana Smith RN - 03/03/2024 8:36 AM EST Protocol recommends go to ER now. Pt will be going to [facility] ER. Care plan reviewed with patient. Patient voices understanding. Advised patient that if symptoms get worse to call 911. Reason for Disposition [1] Unable to urinate (or only a few drops) > 4 hours AND [2] bladder feels very full (e.g., palpable bladder or strong urge to urinate) Answer Assessment - Initial Assessment Questions 1. ONSET: Pain begain 2 1/2 months ago, excruciating pain began 3 weeks ago 2. LOCATION: Pt reports it's whole lower back, goes into L buttock, L thigh, L calf, and L foot. 3. SEVERITY: - MILD (1-3): Doesn't interfere with normal activities. - MODERATE (4-7): Interferes with normal activities or awakens from sleep. - SEVERE (8-10): Excruciating pain, unable to do any normal activities. 1000/10 constant for past 3 weeks but transfers over past 3 weeks and sharp burning. 4. PATTERN: The pain constant. 5. RADIATION: The pain shoots into L leg. 6. CAUSE: Does not know. 7. BACK OVERUSE: Denies any recent lifting of heavy objects, strenuous work or exercise. 8. MEDICINES: Has taken Ibuprofen for the pain, doesn't take the edge off. 9. NEUROLOGIC SYMPTOMS: Weakness in the L side but states she can control it, numbness in L calf and foot, or problems with bowel/bladder control (When has to urinate has to push it out). 10. OTHER SYMPTOMS: Pt denies fever, abdomen pain, burning with urination, blood in urine. 11. : Pt had a tubal but has a Mirania. Protocols used: Back [id number] documented in this encounter[facility]12-[facility]-2024 Telephone encounter Note * Telephone Encounter - Nicole Duff MA - 03/03/2024 8:26 AM EST X-ray scanned in for review Nicole Duff MA March 03, 2024 8:27 AM [facility]12-02-2024 Telephone encounter Note* Telephone Encounter - Liliana Smith RN - 03/02/2024 12:56 PM EST Pt called and is notified of providers message and instructions. Pt voices understanding. She states she has been to the chiropractor and they told her she has two ruptured discs. Pt states she doesn't have enough money to keep seeing doctors when I asked if she would like me to make her an appointment. She states I would have to have an appointment with them and that would be a co-pay, then theywould refer me to a specialist and that co-pay would be double. Pt states she will wait for the results from the x-rays from [facility]. Liliana Smith RN [facility] [facility] Telephone encounter Note* Telephone Encounter - Paul Kendrick MD - 03/02/2024 12:09 PM EST Usually injections like that involve seeing someone like pain management, not ortho. What she describes actually sounds like spine. Hard to decide without one of us seeing her. Sometimes do physical therapy also. Likely [facility]12-02[facility] Telephone encounter Note* Telephone Encounter - Mirian Campbell LPN - 03/02/2024 11:46 AM EST Citlali calling with complaints of a shifted pelvis. Complains of pain in left buttocks that radiates down her thigh into calf and causes foot to be numb. Denies any incontinence in bowel or bladder. Has been seeing the chiropractor with no relief in the pain. Rates pain 10:10 currently. Pain started about 2 months ago and has worsened in the last 3 weeks. Did see a nurse at her work who gave her prednisone 40mg daily for 10 days but this was not effective at all. Denies any injury. Had x-ray completed today at [facility] but not resulted yet. Is asking about a cortisone injection? Is aware may need to see ortho for injection and she had seen Dr. Coronado in the past. Is not able to afford multiply co-payments and declined an appointment with PCP at this time. [facility]10-16-2024 Telephone encounter Note* Telephone Encounter - Meche Walsh MA - 01/15/2024 1:51 PM EDT Images from the original note were not included. PA approved till 01/25 Patient notified [facility]10-16-2024 Miscellaneous Notes* Telephone Encounter - Meche Walsh MA - 01/15/2024 1:51 PM EDT Images from the original note were not included. PA approved till 01/25 Patient notified * Telephone Encounter - Meche Walsh MA - 01/15/2024 11:44 AM EDT Received PA request from pharmacy for lansoprazole submitted through [employer] Méndez:[email or web address] Meche Walsh MA [facility] Telephone encounter Note * Telephone Encounter - Meche Walsh MA - 01/15/2024 11:44 AM EDT Received PA request from pharmacy for lansoprazole submitted through [employer] Méndez:[email or web address] Meche Walsh MA [facility]10-14-2024 Instructions* Patient Instructions* Marry Paredes APRN.CNP - 01/13/2024 4:29 PM EDT 1) Check labs - non fasting 2) Follow up in 6 months documented in [facility]-2024 NoteHNO ID: [id number] Author: MARRY PAREDES APRN.CNP Service: ? Author Type: Clinical Nurse Specialist Type: Progress Notes Filed: 01/13/2024 16:30 Note Text: Chief Reason For Appointment Patient presents with: Yearly Exam Citlali Beckwith is a 38 year old female who presents for annual exam. Last office visit date: 10/03/2022 Accompanied By self only Have you had any critical events, hospital stays, ER visits, surgeries or procedures since your last visit here in our office: No Specialists/Other Healthcare Providers Seen: Patient Care Team: Paul Kendrick MD as PCP - General (Family Medicine) Concerns today: None HPI Hasn't slept well since 2018 Active Problems ACTIVE PROBLEM LIST Ascus With Positive High Risk Hpv Cervical - 05/29/2023 Comment: 2023. Colpo ordered. Carpal Tunnel Syndrome - 04/04/2022 Hyperbilirubinemia - 04/04/2022 Gerd Without Esophagitis - 10/03/2021 Folic Acid Deficiency (Non Anemic) - 07/13/2021 Vitamin D Deficiency - 07/12/2021 Seizures (Hcc) - 03/09/2020 History of Angelika-En-Y Gastric Bypass - 03/09/2020 Flor (Obstructive Sleep Apnea) - 10/28/2019 Comment: Not treating. Cervical High Risk Hpv (Human Papillomavirus) Test Positive - 08/06/2018 Comment: 07/29/18-Pap smear negative. HPV HR type positive. Repeat co-testing in one year. Benita Scott APRN.CNM Anemia - 08/07/2017 Comment: Added automatically from request for surgery [id number] Rls (Restless Legs Syndrome) - 08/29/2016 Anemia Due to Vitamin B12 Deficiency - 08/29/2016 History of Recurrent Uti (Urinary Tract Infection) - 09/08/2015 Comment: 09/08/2015Pt has a history of recurrent UTI.Sees Dr Rushing. Discussed importance of reporting the onset of any symptoms of a UTI should it occur during .TKRN September 22, 2015 Klebsiella bacturia, treated w/ keflex. Carlie Campbell MD History of Herpes Genitalis - 09/08/2015 Comment: 10/13/15 Outbreak reported. Rx Valtex sent and will continue suppressive therapy. MH 09/08/2015Pt has a history of genital herpes. Discussed with pt. importance of reporting any outbreaks during should they occur.TKRN History of Depression - 09/08/2015 Comment: 09/18/2015Pt has a history of depression diagnosed at age 14. She has been off medication since April . Discussed increased risks of depression during and and importance of reporting the development or worsening of symptoms should they occur.Pt denies ever having any suicidal thoughts or tendencies or thoughts of hurting others.TKRN History of Marijuana Use - 09/08/2015 Comment: 09/08/2015Patient states she has used marijuana in the past, but none for the past 1-2 months. Denies any other drug use. Discussed with patient importance of avoiding any drug use in . TKRN January 31, 2016 + tox for amphetamines and THC. Carlie Campbell MD Tobacco Use - 08/26/2007 Comment: Since age 14 or so, currently at 1/2 ppd (05/2009) ROS: REVIEW OF SYSTEMS GENERAL: No weight loss, malaise or fevers/chills HEENT: Negative for frequent or significant headaches, No changes in hearing or vision. NECK: Negative for lumps, goiter, pain and significant neck swelling RESPIRATORY: Negative for cough, hemoptysis, wheezing, dyspnea or shortness of breath CARDIOVASCULAR: Negative for chest pain, leg swelling, orthopnea, or palpitations GI: No nausea, vomiting, or diarrhea/constipation. No hematochezia/melena. No heartburn or reflux symptoms. : No history of dysuria, frequency or incontinence MUSCULOSKELETAL: Negative for joint pain or swelling. SKIN: Negative for lesions, rash, and itching ENDOCRINE: Negative for cold or heat intolerance, polyuria, polydipsia and goiter NEURO: No history of headaches, syncope, paralysis, seizures or tremors MOOD: Negative for depression, anxiety, or suicidal ideation. PAST MEDICAL HISTORY Diagnosis Date Anemia ASCUS with positive high risk HPV cervical 05/29/2023 Chlamydia 2004,2008,2013 x3 Herpes simplex virus (HSV) infection History of gastric bypass 09/08/2015 Hypoglycemia 08/12/13 Iron deficiency 08/29/2016 Kidney stone Marijuana use Mental disorder RLS (restless legs syndrome) Amezquita Seizure Overdose of Wellbutrin Seizures (HCC) Thrombosed hemorrhoids 2013 PAST SURGICAL HISTORY Procedure Laterality Date DELIVERY ONLY 2003 , low cervical DELIVERY ONLY N/A 04/23/2016 GASTRIC BYPASS HX 04/2011 HEMORRHOIDECTOMY NEUROPLASTY AND/TRANSPOS MEDIAN NRV CARPAL TUNNE Right 02/11/2020 Right carpal tunnel release PAST SURGICAL HISTORY OF kidney stone PAST SURGICAL HISTORY OF 01/2020 bilateral fallopian tubes removed REPAIR FIRST ABDOMINAL WALL HERNIA 04/08/2018 Hernia repair, incisional REVISE MEDIAN N/CARPAL TUNNEL SURG Left 03/11/2020 Medication List Current Outpatient Medications Medication Sig Dispense Refill dextroamphetami (more content not included)...[facility] 01-13-2024 History of Present illness Narrative* Marry Paredes APRN.CERTIFIED CODING SPECIALIST - 01/13/2024 4:13 PM EDT Chief Reason For Appointment Patient presents with: Yearly Exam Citlali Beckwith is a 38 year old female who presents for annual exam. Last office visit date: 10/03/2022 Accompanied By self only Have you had any critical events, hospital stays, ER visits, surgeries or procedures since your last visit here in our office: No Specialists/Other Healthcare Providers Seen: Patient Care Team: Paul Kendrick MD as PCP - General (Family Medicine) Concerns today: None HPI Hasn't slept well since 2018 Active Problems ACTIVE PROBLEM LIST Ascus With Positive High Risk Hpv Cervical - 05/29/2023 Comment: 2023. Colpo ordered. Carpal Tunnel Syndrome - 04/04/2022 Hyperbilirubinemia - 04/04/2022 Gerd Without Esophagitis - 10/03/2021 Folic Acid Deficiency (Non Anemic) - 07/13/2021 Vitamin D Deficiency - 07/12/2021 Seizures (Hcc) - 03/09/2020 History of Angelika-En-Y Gastric Bypass - 03/09/2020 Flor (Obstructive Sleep Apnea) - 10/28/2019 Comment: Not treating. Cervical High Risk Hpv (Human Papillomavirus) Test Positive - 08/06/2018 Comment: 07/29/18-Pap smear negative. HPV HR type positive. Repeat co-testing in one year. Benita Scott APRN.CNM Anemia - 08/07/2017 Comment: Added automatically from request for surgery [id number] Rls (Restless Legs Syndrome) - 08/29/2016 Anemia Due to Vitamin B12 Deficiency - 08/29/2016 History of Recurrent Uti (Urinary Tract Infection) - 09/08/2015 Comment: 09/08/2015Pt has a history of recurrent UTI.Sees Dr Rushing. Discussed importance of reporting the onset of any symptoms of a UTI should it occur during .TKRN September 22, 2015 Klebsiella bacturia, treated w/ keflex. Carlie Campbell MD History of Herpes Genitalis - 09/08/2015 Comment: 10/13/15 Outbreak reported. Rx Valtex sent and will continue suppressive therapy. MH 09/08/2015Pt has a history of genital herpes. Discussed with pt. importance of reporting any outbreaks during should they occur.TKRN History of Depression - 09/08/2015 Comment: 09/18/2015Pt has a history of depression diagnosed at age 14. She has been off medication since April . Discussed increased risks of depression during and and importance of reporting the development or worsening of symptoms should they occur.Pt denies ever having any suicidal thoughts or tendencies or thoughts of hurting others.TKRN History of Marijuana Use - 09/08/2015 Comment: 09/08/2015Patient states she has used marijuana in the past, but none for the past 1-2 months. Denies any other drug use. Discussed with patient importance of avoiding any drug use in . TKRN January 31, 2016 + tox for amphetamines and THC. Carlie Campbell MD Tobacco Use - 08/26/2007 Comment: Since age 14 or so, currently at 1/2 ppd (05/2009) ROS: REVIEW OF SYSTEMS GENERAL: No weight loss, malaise or fevers/chills HEENT: Negative for frequent or significant headaches, No changes in hearing or vision. NECK: Negative for lumps, goiter, pain and significant neck swelling RESPIRATORY: Negative for cough, hemoptysis, wheezing, dyspnea or shortness of breath CARDIOVASCULAR: Negative for chest pain, leg swelling, orthopnea, or palpitations GI: No nausea, vomiting, or diarrhea/constipation. No hematochezia/melena. No heartburn or reflux symptoms. : No history of dysuria, frequency or incontinence MUSCULOSKELETAL: Negative for joint pain or swelling. SKIN: Negative for lesions, rash, and itching ENDOCRINE: Negative for cold or heat intolerance, polyuria, polydipsia and goiter NEURO: No history of headaches, syncope, paralysis, seizures or tremors MOOD: Negative for depression, anxiety, or suicidal ideation. PAST MEDICAL HISTORY Diagnosis Date Anemia ASCUS with positive high risk HPV cervical 05/29/2023 Chlamydia 2004,2008,2014 x3 Herpes simplex virus (HSV) infection History of gastric bypass 09/08/2015 Hypoglycemia 08/12/13 Iron deficiency 08/29/2016 Kidney stone Marijuana use Mental disorder RLS (restless legs syndrome) Amezquita Seizure Overdose of Wellbutrin Seizures (HCC) Thrombosed hemorrhoids 2013 PAST SURGICAL HISTORY Procedure Laterality Date DELIVERY ONLY 2003 , low cervical DELIVERY ONLY N/A 04/23/2016 GASTRIC BYPASS HX 04/2011 HEMORRHOIDECTOMY NEUROPLASTY &/TRANSPOS MEDIAN NRV CARPAL TUNNE Right 02/11/2020 Right carpal tunnel release PAST SURGICAL HISTORY OF kidney stone PAST SURGICAL HISTORY OF 01/2020 bilateral fallopian tubes removed REPAIR FIRST ABDOMINAL WALL HERNIA 04/08/2018 Hernia repair, incisional REVISE MEDIAN N/CARPAL TUNNEL SURG Left 03/11/2020 Medication List Current Outpatient Medications Medication Sig Dispense Refill dextroamphetamine SR (DEXEDRINE SPANSULE) 15 mg biphasic capsule TAKE 2 CAPSULES BY MOUTH 2 TIMES ADAY (MORNING AND AFTERNOON) cyanocobalamin 1,000 mcg/mL Inject 1 mL intramuscularly once every month. 3 mL 3 cyanocobalamin 1,000 mcg/mL Inject 1 mL intramuscularly once every month. 1 mL 12 valACYclovir (VALTREX) 500 mg tablet Take one tablet by mouth once a day. 90 tablet 2 doxycycline hyclate (VIBRAMYCIN) 100 mg capsule Take 1 capsule by mouth two times a day. 6 capsule 0 lidocaine urojet (GLYDO) 2 % jelp Apply 5 mL to affected area three times a day as needed. 20 mL 1 cephALEXin (KEFLEX) 250 mg capsule TAKE ONE TABLET BY MOUTH AT BEDTIME FOR 90 DAYS, THEN AFTER intercourse Acidophilus-Pectin, Soddy-Daisy 25 million cell -100 mg tab Take 1 tablet by mouth every afternoon. levonorgestrel (MIRENA) 20 mcg/24 hours (7 yrs) 52 mg IUD 1 Each by INTRAUTERINE route as directed.1 Each 0 gabapentin (NEURONTIN) 300 mg capsule Take 3 capsules by mouth daily at bedtime for 180 days. 270 capsule 1 lansoprazole (PREVACID) 30 mg capsule Take 1 capsule by mouth daily before breakfast. 1/2 hr beforemeal. 90 capsule 3 traZODone (DESYREL) 100 mg tablet Take 1 tablet by mouth daily at bedtime. [address] (PROTONIX) 40 mg tablet Take 1 tablet by mouth daily before breakfast. Take on empty stomach, 1/2 hr before meal. (Patient not taking: Reported on 01/13/2024) 30 tablet 11 methylphenidate ER (CONCERTA) 54 mg biphasic tablet Take 1 tablet by mouth once daily for 30 days. 0 Cholecalciferol, Vitamin D3, 25 mcg (1,000 unit) cap Take 1 capsule by mouth once daily. 30 [id number] Cholecalciferol, Vitamin D3, 25 mcg (1,000 unit) cap Take 1 capsule by mouth once daily. 30 No current facility-administered medications for this visit. Weight Summary: Weight Change: Body mass index is 33.45 kg/m . Last Wt 01/13/24 : 91.2 kg (201 lb) 05/17/23 : 89.1 kg (196 lb 6.4 oz) 05/15/23 : 88.7 kg (195 lb 9.6 oz) 10/03/22 : 83 kg (183 lb) 06/05/22 : 81.2 kg (179 lb) Physical Exam:General Appearance: well appearing, alert and oriented. Skin: no suspicious lesion, no rash, no open sores Head: normocephalic, no obvious masses, lesions, tenderness or abnormalities. Nose/Sinuses: some clear drainage Neck: trachea midline, thyroid without mass or nodularity, thyroid moves normally with swallow, no regional lymphadenopathy. Carotids normal upstroke, no bruit or thrill. Lungs: Chest rise & fall symmetrical, Lungs clear to auscultation. No wheezing or rhonchi. No rales. Abdomen: normal bowel sounds, no mass, non-tender Heart: S1S2, no gallop, no rub, no murmur Ext: no clubbing, cyanosis or edema. Mood: bright affect, speech clear, answers questions appropriately SCREENINGS Health Maintenance Listing Pneumococcal Vaccine(1 of 2 - PCV) Depression Screening Anxiety Screening Influenza Vaccine(1) Covid-19 Vaccine( season) Cervical Cancer Screening TEST RESULTS: Lab Studies: Date of lab studies: check labs - glucose - potassium - Creatinine, gfr - LFTs Lipid: WBC, H&H, Platelets: A1C: Vitamin D: Other: A/P: ASSESSMENT/PLAN: 1. GERD without esophagitis - ICD9: 530.81, ICD10: K21.9 (primary diagnosis) - Stable - LANSOPRAZOLE 30 MG CAPSULE,DELAYED RELEASE 2. RLS (restless legs syndrome) - ICD9: 333.94, ICD10: G25.81 Check labs - GABAPENTIN 300 MG CAPSULE - COMPLETE BLOOD COUNT AND DIFFERENTIAL - MAGNESIUM 3. Seizures (HCC) - ICD9: 780.39, ICD10: R56.9 Due to Wellbutrin 4. Seizure disorder (HCC) - ICD9: 345.90, ICD10: G40.909 No further seizures - TRAZODONE 100 MG TABLET - THYROID STIMULATING HORMONE 5. Screening for depression - ICD9: V79.0, ICD10: Z13.31 Stable - DEPRESSION SCREENING 6. Encounter for screening examination for other mental health and behavioral disorders - ICD9: V79.8, ICD10: Z13.39 Check labs - ANXIETY SCREENING 7. Other vitamin B12 deficiency anemia - ICD9: 281.1, ICD10: D51.8 Check labs - VITAMIN B12 - THYROID STIMULATING HORMONE 8. History of Angelika-en-Y gastric bypass - ICD9: V45.86, ICD10: Z98.84 Get labs updated - COMPLETE BLOOD COUNT AND DIFFERENTIAL - COMPREHENSIVE METABOLIC PANEL - HEMOGLOBIN A1C - VITAMIN D 25 HYDROXY Discussed treatment plan and patient voices understanding. Patient's questions answered appropriately. Medications and potential side effects were discussed and patient voices understanding. Return to the office as scheduled or as needed for worsening/no improvement. Marry Paredes APRN.CNP Follow Up Plans: 6 months [facility] Telephone encounter Note * Telephone Encounter - Marry Hunter LPN - 12/27/2023 8:17 AM EDT Prescription Refill Information The patient has been identified by name and date of : Yes Caregiver verified no other encounters exist for this prescription request: Yes Caregiver confirmed with patient/requestor that no other refills are due, in the near future, with this provider at this time: Yes The last office visit in the department: 05/16/2023 Does the patient have a future office visit with this provider/department: No Requested Prescriptions Pending Prescriptions Disp Refills gabapentin (NEURONTIN) 300 mg capsule 90 capsule 0 Sig: Take 3 capsules by mouth daily at bedtime for 180 days. Marry Hunter LPN December 27, 2023 8:18 AM [facility]09-27-2024 Miscellaneous Notes* Telephone Encounter - Marry Hunter LPN - 12/27/2023 8:17 AM EDT Prescription Refill Information The patient has been identified by name and date of : Yes Caregiver verified no other encounters exist for this prescription request: Yes Caregiver confirmed with patient/requestor that no other refills are due, in the near future, with this provider at this time: Yes The last office visit in the department: 05/16/2023 Does the patient have a future office visit with this provider/department: No Requested Prescriptions Pending Prescriptions Disp Refills gabapentin (NEURONTIN) 300 mg capsule 90 capsule 0 Sig: Take 3 capsules by mouth daily at bedtime for 180 days. Marry Hunter LPN December 27, 2023 8:18 AM documented in [facility] encounter[facility]09-[facility]24 Telephone encounter Note * Telephone Encounter - Liliana Smith RN - 12/18/2023 11:09 AM EDT Letter printed and faxed to Kristin Tejeda at the [facility], fax # [phone]. [facility]09-18-[facility]24 Miscellaneous Notes* Telephone Encounter - Liliana Smith RN - 12/18/2023 11:09 AM EDT Letter printed and faxed to Kristin Tejeda at the [facility], fax # [phone]. * Telephone Encounter - Paul Kendrick MD - 12/18/2023 9:51 AM EDT written * Telephone Encounter - Liliana Smith RN - 12/18/2023 9:06 AM EDT Pt called in and reports the employee health nurse at their work gives her her B12 injections. She states she needs Reid Kendrick to send in a new letter stating she can get them done there. Provider had written a letter on 11/15/22, that was good for a year. She is asking if he could write a new one and send it to Kristin Tejeda at the [facility], fax # [phone]. Pt states she is due to have an injection today. documented [facility]09-[facility] Telephone encounter Note * Telephone Encounter - Paul Kendrick MD - 12/18/2023 9:51 AM EDT written [facility]-18-[facility] Telephone encounter Note* Telephone Encounter - Liliana Smith RN - 12/18/2023 9:06 AM EDT Pt called in and reports the employee health nurse at their work gives her her B12 injections. She states she needs Reid Kendrick to send in a new letter stating she can get them done there. Provider had written a letter on 11/15/22, that was good for a year. She is asking if he could write a new one and send it to Kristin Tejeda at the [facility], fax # [phone]. Pt states she is due to have an injection today. [facility]08-27-[facility] Telephone encounter Note* Telephone Encounter - Marry Hunter LPN - 11/26/2023 10:25 AM EDT Prescription Refill Information The patient has been identified by name and date of : Yes Caregiver verified no other encounters exist for this prescription request: Yes Caregiver confirmed with patient/requestor that no other refills are due, in the near future, with this provider at this time: Yes The last office visit in the department: 05/16/2023 Does the patient have a future office visit with this provider/department: No Requested Prescriptions Pending Prescriptions Disp Refills traZODone (DESYREL) 100 mg tablet 90 tablet 1 Sig: Take 1 tablet by mouth daily at bedtime. Marry Hunter LPN November 26, 2023 10:25 AM [facility] Miscellaneous Notes* Telephone Encounter - Marry Hunter LPN - 11/26/2023 10:25 AM EDT Prescription Refill Information The patient has been identified by name and date of : Yes Caregiver verified no other encounters exist for this prescription request: Yes Caregiver confirmed with patient/requestor that no other refills are due, in the near future, with this provider at this time: Yes The last office visit in the department: 05/16/2023 Does the patient have a future office visit with this provider/department: No Requested Prescriptions Pending Prescriptions Disp Refills traZODone (DESYREL) 100 mg tablet 90 tablet 1 Sig: Take 1 tablet by mouth daily at bedtime. Marry Hunter LPN November 26, 2023 10:25 AM documented in [facility] encounter[facility]08[facility] Telephone encounter Note * Telephone Encounter - Marry Hunter LPN - 11/26/2023 10:21 AM EDT Change of pharmacy for B12 due to current pharmacy will only fill 1 month at a time. Prescription Refill Information The patient has been identified by name and date of : Yes Caregiver verified no other encounters exist for this prescription request: Yes Caregiver confirmed with patient/requestor that no other refills are due, in the near future, with this provider at this time: Yes The last office visit in the department: 05/16/2023 Does the patient have a future office visit with this provider/department: No Requested Prescriptions Pending Prescriptions Disp Refills gabapentin (NEURONTIN) 300 mg capsule 90 capsule 0 Sig: Take 3 capsules by mouth daily at bedtime for 180 days. cyanocobalamin 1,000 mcg/mL 3 mL 3 Sig: Inject 1 mL intramuscularly once every month. Marry Hunter LPN November 26, 2023 10:24 AM [facility] Miscellaneous Notes* Telephone Encounter - Marry Hunter LPN - 11/26/2023 10:21 AM EDT Change of pharmacy for B12 due to current pharmacy will only fill 1 month at a time. Prescription Refill Information The patient has been identified by name and date of : Yes Caregiver verified no other encounters exist for this prescription request: Yes Caregiver confirmed with patient/requestor that no other refills are due, in the near future, with this provider at this time: Yes The last office visit in the department: 05/16/2023 Does the patient have a future office visit with this provider/department: No Requested Prescriptions Pending Prescriptions Disp Refills gabapentin (NEURONTIN) 300 mg capsule 90 capsule 0 Sig: Take 3 capsules by mouth daily at bedtime for 180 days. cyanocobalamin 1,000 mcg/mL 3 mL 3 Sig: Inject 1 mL intramuscularly once every month. Marry Hunter LPN November 26, 2023 10:24 AM documented in [facility] encounter[facility]07-29-2024 Telephone encounter Note * Telephone Encounter - Isabel Rodriges LPN - 10/28/2023 9:56 AM EDT Prescription Refill Information The patient has been identified by name and date of : Yes Caregiver verified no other encounters exist for this prescription request: Yes Caregiver confirmed with patient/requestor that no other refills are due, in the near future, with this provider at this time: Yes The last office visit in the department: [facility] with Diomedes 05/16/23 Does the patient have a future office visit with this provider/department: No Requested Prescriptions Pending Prescriptions Disp Refills gabapentin (NEURONTIN) 300 mg capsule 42 capsule 0 Sig: Take 3 capsules by mouth daily at bedtime for 180 days. Isabel Rodriges LPN October 28, 2023 9:57 AM [facility] Miscellaneous Notes* Telephone Encounter - Isabel Rodriges LPN - 10/28/2023 9:56 AM EDT Prescription Refill Information The patient has been identified by name and date of : Yes Caregiver verified no other encounters exist for this prescription request: Yes Caregiver confirmed with patient/requestor that no other refills are due, in the near future, with this provider at this time: Yes The last office visit in the department: [facility] with Diomedes 05/16/23 Does the patient have a future office visit with this provider/department: No Requested Prescriptions Pending Prescriptions Disp Refills gabapentin (NEURONTIN) 300 mg capsule 42 capsule 0 Sig: Take 3 capsules by mouth daily at bedtime for 180 days. Isabel Rodriges LPN October 28, 2023 9:57 AM documented in this encounter[facility]24 Miscellaneous Notes* Telephone Encounter - Karen Parr RN - 07/17/2023 12:00 PM EDT Luma from [facility] calls and states that they had shipped out patient medication for gabapentin and cyanocobalamin injection in the mail on 07/12/2023. Patient has not received medication yet and tracking for medication through [facility] does not show medication is in transit. Luma asking if provider c an send in cyanocobalamin and 14 day dose of gabapentin to [facility] pharmacy. Patient has to get injection done on Saturday. Karen Parr RN documented in this encounterU[facility]02-28-2024 Miscellaneous Notes* Telephone Encounter - Evelin Lund APRN.JESICA - 05/29/2023 12:12 PM EST Called patient to discuss HSV on pap. Patient has not had outbreak in 8+ years. Discussed no lesions on exam, may have been just starting an outbreak or ending based on the pain she was having. Reports that she is feeling better now. Discussed prophylactic therapy as an option - she is not really interested in taking another med, but would like to have the rx in case she does want suppressive therapy. Ordered. ASCUS, HPV + Recommend colpo. Patient states that probably won't have done due to cost. She states she received a large bill from her most recent appointment. Financial assistance number provided. Reviewed risks of cervical dysplasia/cancer and would recommend biopsy. Patient plans to call number. Evelin Lund APRN.CERTIFIED CODING SPECIALIST documented in this encounterU[facility]02-27-2024 Miscellaneous Notes* Addendum Note - Marry Hunter LPN - 05/28/2023 2:24 PM ESTAddended by: MARRY HUNTER on: 05/28/2023 02:24 PM Modules accepted: Orders * Telephone Encounter - Marry Hunter LPN - 05/28/2023 2:19 PM EST Spoke to patient. Patient needs this sent to [facility] instead of [facility]. Please review and advise. documented in this encounterUc [facility]02-27-2024 Miscellaneous Notes* Telephone Encounter - Bonnie Brantley LPN - 05/28/2023 12:00 PM EST Images from the original note were not included. Too early to fill. Pt was notified via [employer]. Justyna Brantley LPN * Telephone Encounter - Bonnie Brantley LPN - 05/28/2023 11:51 AM EST Pt sends MyChart stating she may need a PA for Trazodone. (Pt may also be trying to fill too soon as she picked up a month supply 05/07/23.) PA sent on [employer] ([id number]) Justyna Brantley LPN documented in this encounterUc [facility]02-16-2024 History of Present illness Narrative* Evelin Lund, KIRTI.CERTIFIED CODING SPECIALIST - 05/17/2023 1:17 PM EST Design Consultant offered: Patient declines. Citlali Beckwith is a 37 year old female who presents for problem visit of vaginal pain. HPI: Citlali developed this pain after intercourse. She went to ER for STI cultures, which were negative. She was Dr. Desirae Steen, her urologist this week who also screened her for all STIs and did a urine culture. All negative. She saw a possible laceration internally. Citlali states that she has beenusing Desitin with no relief. OB History T2 L2 SAB0 IAB0 Ectopic0 Multiple0 Live Births2 Law Clerk History LMP: 05/10/2021, IUD Age at Menarche: Age at First : Age at Menopause: Law Clerk History Comments: Sexual Activity: Yes; No partner data on record; mirena Contraception: Other, Inserts PAST MEDICAL HISTORY Diagnosis Date Anemia Chlamydia 2003,2008,2013 x3 Herpes simplex virus (HSV) infection History of gastric bypass 09/08/2015 Hypoglycemia 08/12/13 Iron deficiency 08/29/2016 Kidney stone Marijuana use Mental disorder RLS (restless legs syndrome) Amezquita Seizure Overdose of Wellbutrin Seizures (HCC) Thrombosed hemorrhoids 2013 PAST SURGICAL HISTORY Procedure Laterality Date DELIVERY ONLY 2002 , low cervical DELIVERY ONLY N/A 04/23/2016 GASTRIC BYPASS HX 04/2011 HEMORRHOIDECTOMY NEUROPLASTY &/TRANSPOS MEDIAN NRV CARPAL TUNNE Right 02/11/2020 Right carpal tunnel release PAST SURGICAL HISTORY OF kidney stone PAST SURGICAL HISTORY OF 01/2020 bilateral fallopian tubes removed REPAIR FIRST ABDOMINAL WALL HERNIA 04/08/2018 Hernia repair, incisional REVISE MEDIAN N/CARPAL TUNNEL SURG Left 03/11/2020 FAMILY HISTORY Problem Relation Age of Onset Alcohol/Drug Father Hypertension Maternal Grandfather CHF Heart Maternal Grandfather [place] Cancer Paternal Grandmother throat cancer Stroke Paternal Grandmother Blood Clots No Family History Clotting Disorder No Family History Anesthesia Problems No Family History Social History Tobacco Use Smoking status: Every Day Packs/day: 0.50 Years: 15.00 Additional pack years: 0.00 Total pack years: 7.50 Types: Cigarettes Smokeless tobacco: Never Vaping Use Vaping Use: Never used Substance Use Topics Alcohol use: Yes Comment: social Drug use: No Comment: Hx marijuana use Current Outpatient Medications Medication Sig cephALEXin (KEFLEX) 250 mg capsule TAKE ONE TABLET BY MOUTH AT BEDTIME FOR 90 DAYS, THEN AFTER intercourse Acidophilus-Pectin, Soddy-Daisy 25 million cell -100 mg tab Take 1 tablet by mouth every afternoon. traZODone (DESYREL) 100 mg tablet Take 1 tablet by mouth daily at bedtime. gabapentin (NEURONTIN) 300 mg capsule Take 3 capsules by mouth daily at bedtime for 90 days. cyanocobalamin 1,000 mcg/mL Inject 1 mL intramuscularly once every month. Cholecalciferol, Vitamin D3, 25 mcg (1,000 unit) cap Take 1 capsule by mouth once daily. levonorgestrel (MIRENA) 20 mcg/24 hours (7 yrs) 52 mg IUD 1 Each by INTRAUTERINE route as directed. Cholecalciferol, Vitamin D3, 25 mcg (1,000 unit) cap Take 1 capsule by mouth once daily. VYVANSE 60 mg capsule 1 capsule once daily. No current facility-administered medications for this visit. Allergies As of Date: 05/17/2023 Allergen Noted Reaction ADHESIVE TAPE (ROSINS) 08/14/2013 Rash ASPIRIN 08/14/2013 EFFEXOR [VENLAFAXINE] 05/01/2017 Other: See Comments LATEX 07/09/2007 Rash NSAIDS (NON-STEROIDAL ANTI-INFLAM*07/05/2014 WELLBUTRIN [BUPROPION HCL] 11/28/2006 Other: See Comments Fully Assessed 05/17/2023 REVIEW OF SYSTEMS Abdomen: No bloating, early satiety, indigestion, or increased flatulence. No abdominal pain, nausea, vomiting, diarrhea + constipation (seeing PCP) Bladder: No dysuria, gross hematuria, urinary frequency, urinary urgency, or incontinence. Breast: No breast lumps, nipple d/c, overlying skin changes, redness or skin retraction. Expanded ROS: N/A Allergies and current medication updated:Yes EXAM: BP 110/76 Wt 196 lb 6.4 oz (89.1kg) LMP 05/10/2021 GENERAL: pleasant, female in no apparent distress HEENT: Normocephalic, atraumatic, mucus membranes moist, and no lesions DERMATOLOGY: Normal, without lesions, non-icteric, and non-hirsute BREAST: deferred CHEST: Normal inspiratory effort PELVIC: external genitalia normal, normal Bartholin's glands, urethra, Agra's glands, no vulvar lesions, no cervical lesions, good vaginal support, physiologic discharge present, normal appearing perineal body and perianal region + thick white discharge, no lesions or lacerations noted BIMANUAL: uterus normal size, shape and consistency, no adnexal masses, and non-tender NEURO: alert and oriented x3,exam grossly non-focal EXTREMITIES: normal ASSESSMENT AND PLAN: 1. Vaginal pain - ICD9: 625.9, ICD10: R10.2 (primary diagnosis) - Lidocaine jelly rx sent for pain - No lesions or lacerations noted - UROGENITAL UREAPLASMA AND MYCOPLASMA SPECIES BY PCR, FOR GENITAL, RECTAL, URINE SAMPLES 2. Vaginal discharge - ICD9: 623.5, ICD10: N89.8 - Thick white discharge on exam, indeterminate if it's yeast vs Desitin - Advised to avoid internal Desitin use - BARRIE/TRICHOMONAS NAAT - BACTERIAL VAGINOSIS NAAT Evelin Lund APRN.CNP Medical Decision Making: Problems: Moderate: New problem with uncertain prognosis Data: Unique test(s) ordered: 3+ Risk: Low: Low risk from testing/treatment Moderate: Drug management Medical Decision Making Level: 4 - Moderate documented in this encounterU[facility]02-15-2024 History of Present illness Narrative* Cassius Selby PA-C - 05/16/2023 2:20 PM EST MyChart Zoom Video Visit was used for evaluation of this patient. Location of patient: [place] Patient was offered a virtual/telemedicine appointment in lieu of an office visit due to recommendations to reduce patient exposure to COVID-19. Patient is aware of limitations of performing the visit without a face to face visit in the office setting and agrees. I have communicated my name and active licensure. The patient's identity and physical location wereverified at the time of this visit. Either the patient or their legal financial services sales representative has been informed of the risks and benefits of -- and alternatives to -- treatment through a remote evaluation andconsents to proceed with the evaluation remotely. 2:15 PM 37 year old female with c/o med refills Gerd without esophagitis (primary encounter diagnosis) Current medication: Pantoprazole DR 40mg daily AC Acidophilus-Pectin, Soddy-Daisy 25 million cell Current symptoms: none. Last Mg level if on PPI chronically: not recent. Heartburn is controlled: Yes. Dysphagia: No. Bloody or black stools: No. Bowel changes: No. Seizures (hcc) 2 episodes r/t wellbutrin None since stopped Rls (restless legs syndrome) Flor (obstructive sleep apnea) Current medications: Gabapentin 300mg three tabs qHS Trazedone 100mg daily Medications help sleep History of recurrent uti (urinary tract infection) History of herpes genitalis No recent issues Tobacco use Down to 3 cigs a day! Vyvanse 60mg daily for ADD, works well. Outside provider Recurrent issues with kidney stones No recent sx Constipated over last year Takes miralax daily x 6 months but makes her shaky Once a week over last Water intake: drinks all day Exercise: never sits down Straining, hemorrhoids, bled first time last week. HISTORIES FAMILY HISTORY Problem Relation Age of Onset Alcohol/Drug Father Hypertension Maternal Grandfather CHF Heart Maternal Grandfather [place] Cancer Paternal Grandmother throat cancer Stroke Paternal Grandmother Blood Clots No Family History Clotting Disorder No Family History Anesthesia Problems No Family History PAST MEDICAL HISTORY Diagnosis Date Anemia Chlamydia 2003,2008,2013 x3 Herpes simplex virus (HSV) infection History of gastric bypass 09/08/2015 Hypoglycemia 08/12/13 Iron deficiency 08/29/2016 Kidney stone Marijuana use Mental disorder RLS (restless legs syndrome) Amezquita Seizure Overdose of Wellbutrin Seizures (HCC) Thrombosed hemorrhoids 2013 PAST SURGICAL HISTORY Procedure Laterality Date DELIVERY ONLY 2003 , low cervical DELIVERY ONLY N/A 04/23/2016 GASTRIC BYPASS HX 04/2011 HEMORRHOIDECTOMY NEUROPLASTY &/TRANSPOS MEDIAN NRV CARPAL TUNNE Right 02/11/2020 Right carpal tunnel release PAST SURGICAL HISTORY OF kidney stone PAST SURGICAL HISTORY OF 01/2020 bilateral fallopian tubes removed REPAIR FIRST ABDOMINAL WALL HERNIA 04/08/2018 Hernia repair, incisional REVISE MEDIAN N/CARPAL TUNNEL SURG Left 03/11/2020 Social History Tobacco Use Smoking status: Every Day Packs/day: 0.50 Years: 15.00 Additional pack years: 0.00 Total pack years: 7.50 Types: Cigarettes Smokeless tobacco: Never Vaping Use Vaping Use: Never used Substance Use Topics Alcohol use: Yes Comment: social Drug use: No Comment: Hx marijuana use ACTIVE PROBLEM LIST Tobacco Use History of Recurrent Uti (Urinary Tract Infection) History of Herpes Genitalis History of Depression History of Marijuana Use Rls (Restless Legs Syndrome) Anemia Due to Vitamin B12 Deficiency Anemia Cervical High Risk Hpv (Human Papillomavirus) Test Positive Flor (Obstructive Sleep Apnea) Seizures (Hcc) History of Angelika-En-Y Gastric Bypass Vitamin D Deficiency Folic Acid Deficiency (Non Anemic) Gerd Without Esophagitis Carpal Tunnel Syndrome Hyperbilirubinemia Current Outpatient Medications Medication Sig Dispense Refill cephALEXin (KEFLEX) 250 mg capsule TAKE ONE TABLET BY MOUTH AT BEDTIME FOR 90 DAYS, THEN AFTER intercourse Acidophilus-Pectin, Soddy-Daisy 25 million cell -100 mg tab Take 1 tablet by mouth every afternoon. traZODone (DESYREL) 100 mg tablet Take 1 tablet by mouth daily at bedtime. 30 tablet 5 gabapentin (NEURONTIN) 300 mg capsule Take 3 capsules by mouth daily at bedtime for 90 days. 90 capsule 5 cyanocobalamin 1,000 mcg/mL Inject 1 mL intramuscularly once every month. 1 mL 12 Cholecalciferol, Vitamin D3, 25 mcg (1,000 unit) cap Take 1 capsule by mouth once daily. 30 [id number] Cholecalciferol, Vitamin D3, 25 mcg (1,000 unit) cap Take 1 capsule by mouth once daily. [id number] (PROTONIX) 40 mg tablet Take 1 tablet by mouth daily before breakfast. Take on empty stomach, 1/2 hr before meal. 30 tablet 11 levonorgestrel (MIRENA) 20 mcg/24 hours (7 yrs) 52 mg IUD 1 Each by INTRAUTERINE route as directed.1 Each 0 VYVANSE 60 mg capsule 1 capsule once daily. No current facility-administered medications for this visit. Covid-19 Vaccine(1) Never done Pneumococcal Vaccine(1 of 2 - PCV) Never done Influenza Vaccine(1) due on 11/30/2022 Depression Assessment due on 04/01/2023 EXAM: LMP 05/10/2021 Pleasant overweight but well appearing adult woman in no acute distress. Alert and oriented all spheres. Normal affect and cognition. Speech normal. No deficits to learning or comprehension. Speaking in full sentences easily. Respirations regular and unlabered Moving easily in video Oral membrane pink and moist ASSESSMENT/PLAN: 1. GERD without esophagitis - ICD9: 530.81, ICD10: K21.9 (primary diagnosis) - Discussed lifestyle modifications including losing weight, limiting caffeine, no meals three hours before sleep, and head of bed elevation - stop pantoprazole, start lanzoprazole and notify progress in 2-3 weeks 2. Seizures (HCC) - ICD9: 780.39, ICD10: R56.9 Resolved, r/t wellbutrin 3. FLOR (obstructive sleep apnea) - ICD9: 327.23, ICD10: G47.33 Noncompliant, states no benefit 4. RLS (restless legs syndrome) - ICD9: 333.94, ICD10: G25.81 Managed well with gabapentin, continue - GABAPENTIN 300 MG CAPSULE 5. History of recurrent UTI (urinary tract infection) - ICD9: V13.02, ICD10: Z87.440 No recent episodes 6. History of herpes genitalis - ICD9: V12.09, ICD10: Z86.19 No recent episodes 7. Tobacco use - ICD9: 305.1, ICD10: Z72.0 - Cessation encouraged. - Physiologic and physical aspects of tobacco addiction as well as strategies for quitting were discussed. - Counseling was given focusing on the harmful effects of this addiction especially given the patient's medical condition(s) which will be worsened because of the chemicals in tobacco. 8. Other vitamin B12 deficiency anemia - ICD9: 281.1, ICD10: D51.8 Refill - CYANOCOBALAMIN (VIT B-12) 1,000 MCG/ML INJECTION SOLUTION Follow-up 6 months or as needed. Cassius Selby PA-C documented in this encounterU[facility]02-14-[facility]24 History of Present illness Narrative* Radha Chang PA - 05/15/2023 9:18 AM EST This note was created using NoteWriter. Subjective Citlali Beckwith is a 37 year old female. HPI 37-year-old female presents for vaginal discharge and irritation. Patient states symptoms started about 5 days ago. She is currently on a 90-day antibiotic for recurrent UTI. She takes 250 mg of cephalexin at night. She states that she has history of recurrent yeast infections and BV. She has been using Monistat [id number], but has not been helping with her symptoms. She states she has white vaginal discharge, itchiness and irritation. No concern for . History of tubal ligation. She does report some irritation and a little bit of pain with intercourse. No pelvic pain or abdominal pain. Patient would also like tested for STDs. She does states she has a history of HSV, but h as not had any recent outbreaks. She is on a preventative medication. She states she has not seen any external lesions, but wants to be sure she is not having an outbreak of that either. She denies any dysuria, hematuria, back pain, vomiting, fevers. PAST MEDICAL HISTORY Diagnosis Date Anemia Chlamydia 2003,2008,2013 x3 Herpes simplex virus (HSV) infection History of gastric bypass 09/08/2015 Hypoglycemia 08/12/13 Iron deficiency 08/29/2016 Kidney stone Marijuana use Mental disorder RLS (restless legs syndrome) Amezquita Seizure Overdose of Wellbutrin Seizures (HCC) Thrombosed hemorrhoids 2013 PAST SURGICAL HISTORY Procedure Laterality Date DELIVERY ONLY 2003 , low cervical DELIVERY ONLY N/A 04/23/2016 GASTRIC BYPASS HX 04/2011 HEMORRHOIDECTOMY NEUROPLASTY &/TRANSPOS MEDIAN NRV CARPAL TUNNE Right 02/11/2020 Right carpal tunnel release PAST SURGICAL HISTORY OF kidney stone PAST SURGICAL HISTORY OF 01/2020 bilateral fallopian tubes removed REPAIR FIRST ABDOMINAL WALL HERNIA 04/08/2018 Hernia repair, incisional REVISE MEDIAN N/CARPAL TUNNEL SURG Left 03/11/2020 ALLERGIES Adhesive Tape (Rosins), Aspirin, Effexor [Venlafaxine], Latex, Nsaids (Non-Steroidal Anti-Inflammatory Drug), and Wellbutrin [Bupropion Hcl] MEDICATIONS cephALEXin (KEFLEX) 250 mg capsule TAKE ONE TABLET BY MOUTH AT BEDTIME FOR 90 DAYS, THEN AFTER intercourse Acidophilus-Pectin, Soddy-Daisy 25 million cell -100 mg tab Take 1 tablet by mouth every afternoon. traZODone (DESYREL) 100 mg tablet Take 1 tablet by mouth daily at bedtime. gabapentin (NEURONTIN) 300 mg capsule Take 3 capsules by mouth daily at bedtime for 90 days. cyanocobalamin 1,000 mcg/mL Inject 1 mL intramuscularly once every month. Cholecalciferol, Vitamin D3, 25 mcg (1,000 unit) cap Take 1 capsule by mouth once daily. levonorgestrel (MIRENA) 20 mcg/24 hours (7 yrs) 52 mg IUD 1 Each by INTRAUTERINE route as directed. Cholecalciferol, Vitamin D3, 25 mcg (1,000 unit) cap Take 1 capsule by mouth once daily. pantoprazole DR (PROTONIX) 40 mg tablet Take 1 tablet by mouth daily before breakfast. Take on empty stomach, 1/2 hr before meal. VYVANSE 60 mg capsule 1 capsule once daily. FAMILY HISTORY Problem Relation Age of Onset Alcohol/Drug Father Hypertension Maternal Grandfather CHF Heart Maternal Grandfather [place] Cancer Paternal Grandmother throat cancer Stroke Paternal Grandmother Blood Clots No Family History Clotting Disorder No Family History Anesthesia Problems No Family History Social History Tobacco Use Smoking status: Every Day Packs/day: 0.50 Years: 15.00 Additional pack years: 0.00 Total pack years: 7.50 Types: Cigarettes Smokeless tobacco: Never Vaping Use Vaping Use: Never used Substance Use Topics Alcohol use: Yes Comment: social Drug use: No Comment: Hx marijuana use Review of Systems Constitutional: Negative for chills and fever. HENT: Negative for congestion, ear pain and sore throat. Respiratory: Negative for cough and shortness of breath. Cardiovascular: Negative for chest pain. Gastrointestinal: Negative for diarrhea and vomiting. Genitourinary: Positive for dyspareunia and vaginal discharge. Negative for difficulty urinating, dysuria, vaginal bleeding and vaginal pain. Objective BP 100/78 Pulse 97 Temp 36.9 C (98.5 F) Resp 21 Wt 88.7 kg (195 lb 9.6 oz) LMP 05/10/2021 SpO2 98% BMI 32.55 kg/m Physical Exam Vitals and nursing note reviewed. 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 Constitutional: General: She is not in acute distress. Appearance: Normal appearance. She is not toxic-appearing. Cardiovascular: Rate and Rhythm: Normal rate and regular rhythm. Pulmonary: Effort: Pulmonary effort is normal. Breath sounds: Normal breath sounds. Abdominal: General: Abdomen is flat. Palpations: Abdomen is soft. Tenderness: There is no abdominal tenderness. Genitourinary: General: Normal vulva. Exam position: Lithotomy position. Pubic Area: No rash. Labia: Right: No rash, tenderness or lesion. Left: No rash, tenderness or lesion. Vagina: Vaginal discharge present. No erythema or bleeding. Cervix: Discharge present. No cervical motion tenderness. Adnexa: Right: No mass or tenderness. Left: No mass or tenderness. Comments: Patient has large amount of white vaginal discharge. She did also use Monistat cream lastnight, so possibly some residual Monistat cream. No herpetic lesions. No CMT. No erythema. She doeshave some external vaginal irritation/excoriation from itching. Neurological: Mental Status: She is alert. Assessment and Plan ASSESSMENT/PLAN: 1. Vaginal discharge - ICD9: 623.5, ICD10: N89.8 - BARRIE/TRICHOMONAS NAAT - BACTERIAL VAGINOSIS NAAT - GONORRHEA/CHLAMYDIA NAAT -Please treat based on results. -Advised to avoid sexual intercourse until symptoms are resolved. -Follow-up with supervisor drawing if pain with intercourse continues. Diagnosis and treatment plan were discussed and questions were answered to the patient's satisfaction. Pt acknowledged understanding of concepts and follow up plan. Specific signs and symptoms that would indicate the need for higher level of care were discussed in detail warranting prompt ER evaluation. MARCI Garza documented in this encounterU[facility]02-06-2024 Miscellaneous Notes* Telephone Encounter - Marry Hunter LPN - 05/07/2023 9:59 AM EST Patient has been identified by name and date of : Yes, Patient phones for refill(s): Requested Prescriptions Pending Prescriptions Disp Refills traZODone (DESYREL) 100 mg tablet 30 tablet 5 Sig: Take 1 tablet by mouth daily at bedtime. gabapentin (NEURONTIN) 300 mg capsule 90 capsule 5 Sig: Take 3 capsules by mouth daily at bedtime for 90 days. Date of last office visit in primary care: 10/03/2022 Date of next office visit in primary care: 05/16/2023 Please advise. Thank you. Marry Hunter LPN. documented in this encounterUc [facility]09-18-2023 Miscellaneous Notes* Telephone Encounter - Isabel Rodriges LPN - 12/17/2022 3:23 PM EDT Patient has been identified by name and date of : Yes Requested Prescriptions Pending Prescriptions Disp Refills gabapentin (NEURONTIN) 300 mg capsule 90 capsule 2 Sig: Take 3 capsules by mouth daily at bedtime for 90 days. RX INSTRUCTIONS: Patient aware RX will be sent to pharmacy. No need to notify patient. CLARENCE 10/03/22 Scheduled 04/03/23 Isabel Rodriges LPN documented in this encounterUc [facility]08-30-2023 Miscellaneous Notes* Telephone Encounter - Antonio Ogden LPN - 11/28/2022 11:29 AM EDT Pt notified. She verbalized understanding. Antonio Ogden LPN * Telephone Encounter - Paul Kendrick MD - 11/28/2022 11:12 AM EDT I would check with the psych office, someone should be covering. * Telephone Encounter - Karen Parr RN - 11/28/2022 10:33 AM EDT Patient calls and states that psychiatrist refills vyvanse 60 mg. 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 Patient states that because of this she is going to need a new prescription. Patient will run out of medication next Saturday. Patient has tried to call psychiatrist however psychiatrist is on vacation. Patient unsure when they will be back. Patient asking if provider would be willing to fill medicationat this time? Patient unsure which pharmacy medication should be sent to. Patient states that if provider would be willing to fill this time, she will start calling pharmacies. Please review and advise, Karen Parr, RN documented in this encounterUc [facility]08-17-2023 Miscellaneous Notes* Telephone Encounter - Yani Sutton Ma - 11/15/2022 10:48 AM EDT See pt message. Can you write letter and upload into pt chart for her to give to Wellness Nurse. Rxhas already been sent into local pharmacy. Update pt via [employer] this was already sent into [facility]. Yani Sutton Ma documented in this encounterUc [facility]08-07-2023 Miscellaneous Notes* Telephone Encounter - Isabel Rodriges LPN - 11/05/2022 8:35 AM EDT Patient has been identified by name and date of : Yes Requested Prescriptions Pending Prescriptions Disp Refills traZODone (DESYREL) 100 mg tablet 30 tablet 5 Sig: Take 1 tablet by mouth daily at bedtime. RX INSTRUCTIONS: Patient aware RX will be sent to pharmacy. No need to notify patient. Isabel Rodriges LPN [facility] History of Present illness Narrative* Paul Kendrick MD - 10/03/2022 10:35 AM EDT Patient presents with: 6 Month Exam HPI: Patient presents today for office visit for follow up. Has switched jobs since last visit and is not on her feet as much. Soles of feet are not as painful. Still needs to schedule follow up with Dr. Avelar. Taking omeprazole 20mg. Not consistent. Maybe twice weekly. No longer using CPAP. States was not seeing benefit from use. Discussed the concerns of untreated cpap. Continues on Vyvanse. Doing well. Oarrs done. No issues with meds. Helping with focus and concentration. No side effects. No chest pain or shortness of breath. No tremor. No gi issues. Sleeping well. Counseling center is writing. RLS is stable. Needed retina for her comedone acne. MEDICATIONS: Current Outpatient Medications Medication Sig gabapentin (NEURONTIN) 300 mg capsule Take 3 capsules by mouth daily at bedtime for 90 days. traZODone (DESYREL) 100 mg tablet Take 1 tablet by mouth daily at bedtime. Cholecalciferol, Vitamin D3, 25 mcg (1,000 unit) cap Take 1 capsule by mouth once daily. pantoprazole DR (PROTONIX) 40 mg tablet Take 1 tablet by mouth daily before breakfast. Take on empty stomach, 1/2 hr before meal. levonorgestrel (MIRENA) 20 mcg/24 hours (7 yrs) 52 mg IUD 1 Each by INTRAUTERINE route as directed. VYVANSE 60 mg capsule 1 capsule once daily. Current Facility-Administered Medications Medication Dose Route Frequency cyanocobalamin 1,000 mcg injection 1,000 mcg INTRAMUSCULAR q 1 MONTH ALLERGIES: ALLERGIES Allergen Reactions Adhesive Tape (Maite* Rash Aspirin Unable to take aspirin after having gastric bypass surgery Effexor [Venlafaxin* Other: See Comments Dry heaves, shaking uncotrollable Latex Rash Nsaids (Non-Steroid* due to gastric bypass Wellbutrin [Bupropi* Other: See Comments Seizure-was on overdose. Has taken it since then and done fine. PAST MEDICAL HISTORY Diagnosis Date Anemia Chlamydia 2003,2008,2013 x3 Herpes simplex virus (HSV) infection History of gastric bypass 09/08/2015 Hypoglycemia 08/12/13 Iron deficiency 08/29/2016 Kidney stone Marijuana use Mental disorder RLS (restless legs syndrome) Amezquita Seizure Overdose of Wellbutrin Seizures (HCC) Thrombosed hemorrhoids 2013 PAST SURGICAL HISTORY Procedure Laterality Date DELIVERY ONLY 2003 , low cervical DELIVERY ONLY N/A 04/23/2016 GASTRIC BYPASS HX 04/2011 HEMORRHOIDECTOMY NEUROPLASTY &/TRANSPOS MEDIAN NRV CARPAL TUNNE Right 02/11/2020 Right carpal tunnel release PAST SURGICAL HISTORY OF kidney stone PAST SURGICAL HISTORY OF 01/2020 bilateral fallopian tubes removed REPAIR FIRST ABDOMINAL WALL HERNIA 04/08/2018 Hernia repair, incisional REVISE MEDIAN N/CARPAL TUNNEL SURG Left 03/11/2020 FAMILY HISTORY Problem Relation Age of Onset Alcohol/Drug Father Hypertension Maternal Grandfather CHF Heart Maternal Grandfather [place] Cancer Paternal Grandmother throat cancer Stroke Paternal Grandmother Blood Clots No Family History Clotting Disorder No Family History Anesthesia Problems No Family History Social History Tobacco Use Smoking status: Every Day Packs/day: 0.50 Years: 15.00 Pack years: 7.50 Types: Cigarettes Smokeless tobacco: Never Vaping Use Vaping Use: Never used Substance Use Topics Alcohol use: Yes Comment: social Drug use: No Comment: Hx marijuana use Reviewed current medications, allergies, past medical history, surgical history, family history andsocial history today. REVIEW OF SYSTEMS All other reviewed and negative other than HPI. HEALTH MAINTENANCE: Reviewed health maintenance issues today and recommended the following in detail. There are no preventive care reminders to display for this patient. VITALS: BP 108/68 Pulse 81 Ht 165.1 cm (5' 5) Wt 83 kg (183 lb) LMP 05/10/2021 SpO2 98% BMI 30.45 kg/m Last 4 Encounter Wt Readings: Date: Wt: 06/05/2022 81.2 kg (179 lb) 04/04/2022 82.1 kg (181 lb) 02/09/2022 81.3 kg (179 lb 3.2 oz) 10/03/2021 83 kg (183 lb) PHYSICAL EXAMINATION: General appearance: Well appearing, alert, in no acute distress, well-hydrated, well nourished. Skin: Skin color, texture, turgor normal, no suspicious rashes or lesions Head: Normocephalic, no masses, lesions, tenderness or abnormalities Lungs: Lungs clear to auscultation. No wheezing, rhonchi, rales Heart: RRR without murmur, gallop, or rubs. No ectopy Abdomen: Normal abdominal exam, Abdomen soft, non-tender. Bowel sounds normal. No masses, organomegaly Extremities: No deformities, edema, skin discoloration, clubbing or cyanosis. Good capillary refill. Musculoskeletal: No joint swelling, deformity, or tenderness Peripheral pulses: Normal Neuro: Negative. ASSESSMENT/PLAN: 1. RLS (restless legs syndrome) - ICD9: 333.94, ICD10: G25.81 (primary diagnosis) - stable. 2. Seizures (HCC) - ICD9: 780.39, ICD10: R56.9 - none noted. 3. FLOR (obstructive sleep apnea) - ICD9: 327.23, ICD10: G47.33 - encouraged. 4. Other vitamin B12 deficiency anemia - ICD9: 281.1, ICD10: D51.8 - CYANOCOBALAMIN (VIT B-12) 1,000 MCG/ML INJECTION SOLUTION 5. Folic acid deficiency (non anemic) - ICD9: 266.2, ICD10: E53.8 - check labs. 6. History of Angelika-en-Y gastric bypass - ICD9: V45.86, ICD10: Z98.84 - stable. - CBC + DIFF - VITAMIN B12 BLOOD - FOLATE SERUM - VITAMIN B1 (THIAMINE), WHOLE BLOOD - COMP METABOLIC PANEL - IRON + TIBC 7. Vitamin D deficiency - ICD9: 268.9, ICD10: E55.9 Follow labs. - VITAMIN D 25 HYDROXY 8. Acne comedone - ICD9: 706.1, ICD10: L70.0 - retry meds. - TRETINOIN MICROSPHERES 0.1 % TOPICAL GEL Paul Kendrick MD [facility] History of Present illness Narrative* Addis Mendez LPN - 08/08/2022 2:22 PM EDT Patient presents for B-12 injection. Denies any problems at this time. Patient instructed on any SEof medication, verbalized understanding and agreed to proceed with treatment. Tolerated injection well. Adids Mendez LPN [facility] History of Present illness Narrative* Addis Mendez LPN - 07/09/2022 2:29 PM EDT Patient presents for B-12 injection. Denies any problems at this time. Patient instructed on any SEof medication, verbalized understanding and agreed to proceed with treatment. Tolerated injection well. Addis Mendez LPN [facility]04-[facility]-2023 Miscellaneous Notes* Telephone Encounter - Mercedez Ojeda LPN - 07/02/2022 12:54 PM EDT Patient phones requesting refills as follows: Requested Prescriptions Pending Prescriptions Disp Refills gabapentin (NEURONTIN) 300 mg capsule 90 capsule 2 Sig: Take 3 capsules by mouth daily at bedtime for 90 days. CLARENCE-04/04/22 Labs-05/03/22 NOV-10/03/22 Please review and advise. Mercedez Ojeda LPN documented [facility] encounter[facility]03-[facility]23 History of Present illness Narrative* Addis Mendez LPN - 06/08/2022 2:21 PM EST Patient presents for B-12 injection. Denies any problems at this time. Patient instructed on any SEof medication, verbalized understanding and agreed to proceed with treatment. Tolerated injection well. Addis Mendez LPN documented [facility] encounter[facility]03-[facility]-2023 Miscellaneous Notes* Telephone Encounter - Tomasa Alarcon APRN.CNM - 06/07/2022 10:24 AM EST Orders for Metrogel sent. Tomasa Alarcon APRN.CNM * Telephone Encounter - Amanda Ayoub LPN - 06/07/2022 9:37 AM EST Pt stated that she is unable to tolerate Flagyl and is usually given Metrogel. Can you please send this to her pharmacy. Call only if problems. Amanda Ayoub LPN * Telephone Encounter - Amanda Ayoub LPN - 06/07/2022 9:37 AM EST ----- Message from Tomasa Alarcon APRN.CNM sent at 06/07/2022 8:49 AM EST ----- Please notify patient that swab was positive for Bacterial Vaginosis. A prescription was called in for Flagyl 500mg PO BID x 7 days. No alcohol while on medication or 24 hours after last dose. No intercourse during treatment. It is also recommended that patient take a probiotic for 30 days- Floragen. Tomasa Alarcon APRN.CNM documented in [facility] encounter[facility]03-[facility] History of Present illness Narrative* Tomasa Alarcon APRN.CNM - 06/05/2022 2:41 PM EST Citlali is a 36 year old who presents for an annual gynecologic exam without complaints. Menses: no menses - Mirena IUD. Contraception: Tubal ligation/ Has IUD for periods HPV vaccine: No Last Pap: 09/14/2019 normal HPV: 09/14/2019 positive History of abnormal pap: Yes- HPV positive x2 Last mammogram: never Sexually active: Yes History of STDS: chlamydia, GC, HPV, HSV, and trichomonas Pain with intercourse: No Postcoital bleeding: No Hot flashes: No Night sweats: No Vaginal dryness: No OB History T2 L2 SAB0 IAB0 Ectopic0 Multiple0 Live Births2 Law Clerk History LMP: 05/10/2021, IUD Age at Menarche: Age at First : Age at Menopause: Law Clerk History Comments: Sexual Activity: Yes; No partner data on record; mirena Contraception: Other, Inserts PAST MEDICAL HISTORY Diagnosis Date Anemia Chlamydia 2003,2008,2014 x3 Herpes simplex virus (HSV) infection History of gastric bypass 09/08/2015 Hypoglycemia 08/12/13 Iron deficiency 08/29/2016 Kidney stone Marijuana use Mental disorder RLS (restless legs syndrome) Amezquita Seizure Overdose of Wellbutrin Seizures (HCC) Thrombosed hemorrhoids 2013 PAST SURGICAL HISTORY Procedure Laterality Date DELIVERY ONLY 2002 , low cervical DELIVERY ONLY N/A 04/23/2016 GASTRIC BYPASS HX 04/2011 HEMORRHOIDECTOMY NEUROPLASTY &/TRANSPOS MEDIAN NRV CARPAL TUNNE Right 02/11/2020 Right carpal tunnel release PAST SURGICAL HISTORY OF kidney stone PAST SURGICAL HISTORY OF 01/2020 bilateral fallopian tubes removed REPAIR FIRST ABDOMINAL WALL HERNIA 04/08/2018 Hernia repair, incisional REVISE MEDIAN N/CARPAL TUNNEL SURG Left 03/11/2020 FAMILY HISTORY Problem Relation Age of Onset Alcohol/Drug Father Hypertension Maternal Grandfather CHF Heart Maternal Grandfather [place] Cancer Paternal Grandmother throat cancer Stroke Paternal Grandmother Blood Clots No Family History Clotting Disorder No Family History Anesthesia Problems No Family History SOCIAL HISTORY Social History Tobacco Use Smoking status: Every Day Packs/day: 0.50 Years: 15.00 Pack years: 7.50 Types: Cigarettes Smokeless tobacco: Never Vaping Use Vaping Use: Never used Substance Use Topics Alcohol use: Yes Comment: social Drug use: No Comment: Hx marijuana use REVIEW OF SYSTEMS Abdomen: No abdominal pain, nausea, vomiting, diarrhea, or constipation. No bloating, early satiety, indigestion, or increased flatulence. Bladder: No dysuria, gross hematuria, urinary frequency, urinary urgency, or incontinence. Breast: No breast lumps, nipple d/c, overlying skin changes, redness or skin retraction. Allergies and current medication updated:Yes EXAM: BP 110/70 Ht 5' 5 (1.65m) Wt 179 lb (81.2kg) LMP 05/10/2021 BMI 29.79 kg/(m^2). GENERAL: pleasant, female in no apparent distress HEENT: Normocephalic and atraumatic NECK: Supple and full range of motion DERMATOLOGY: Normal and without lesions BREAST: soft, non-tender, symmetric, no dominant mass, normal nipple-areolar complex, no lymphadenopathy, and no nipple discharge CHEST: Normal inspiratory effort ABDOMEN: soft, non-tender, and no masses PELVIC: external genitalia normal, normal Bartholin's glands, urethra, Agra's glands, no vulvar lesions, no cervical lesions, good vaginal support, physiologic discharge present, normal appearing perineal body and perianal region, IUD strings NOT visable BIMANUAL: uterus normal size, shape and consistency, no adnexal masses, non- tender, and no cervicalmotion tenderness RECTOVAGINAL: deferred. NEURO: alert and oriented x3,exam grossly non-focal EXTREMITIES: normal ASSESSMENT/PLAN: 1) Health maintenance: Pap done with HPV. Nutrition, exercise and routine health maintenance exams reviewed. 2) Contraception: IUD and tubal sterilization. 3) STD screening: Accepted STD check for Gonorrhea and Chlamydia and Trichomonas. 4) Follow up one year or sooner as needed Will notify patient of results and any changes to plan of care Tomasa Alarcon APRN.CNM documented [facility] encounter[facility] History of Present illness Narrative* Addis Mendez LPN - 05/11/2022 2:25 PM EST Patient presents for B-12 injection. Denies any problems at this time. Patient instructed on any SEof medication, verbalized understanding and agreed to proceed with treatment. Tolerated injection well. Addis Mendez LPN documented [facility] encounter[facility]01-26-[facility]23 Miscellaneous Notes* Telephone Encounter - Meche Walsh Ma - 04/26/2022 11:35 AM EST Patient was notified Meche Walsh Ma * Telephone Encounter - Paul Kendrick MD - 04/26/2022 11:28 AM EST No, she just had the highest level I have seen in years last month. * Telephone Encounter - Nicole Duff Ma - 04/26/2022 11:21 AM EST Patient was advised of provider message. She feels that she would be more likely to take the once every other week than a daily supplement. Asking if the 50,000 unit at every other week can be called in. Nicole Duff Ma * Telephone Encounter - Paul Kendrick MD - 04/26/2022 11:05 AM EST Actually Diomedes said she could do one or the other and he recommended taking less of the high dose orwhat I suggested.(See 04/09 ov) I would prefer, since I have been the one managing overall and know her history better, that she not take the high dose at all since she recently was at a toxic level. Also I am the lead physician in the team who makes the final decision. I doubt they will pay for it but I can send it. * Telephone Encounter - Liliana Smith RN - 04/26/2022 10:24 AM EST Pt called and is notified of providers message and instructions. Pt states that providers are contradicting themselves. That Jelani Selby says one thing and Dr Kendrick says another. She would like it added back to her med list so her insurance will pay for instead of buying it OTC. Please call and advise. Liliana Smith RN * Telephone Encounter - Paul Kendrick MD - 04/26/2022 9:56 AM EST Her vit d is still high normal. Would only take 1000 to 2000 units once a day over the counter at this point. I don't want her on the high dose. * Telephone Encounter - Cassius Cheng RN - 04/26/2022 8:41 AM EST Patient reports she was instructed by Dr. Kendrick to stop taking vit D b/c her level was high. At thattime she d/c'd the Rx at [facility]. Then when vit D lab came back down, Diomedes, advised her take the vit D once a week. Will need provider to send new Rx to [facility] for this. documented in this encounter[facility]01-24-2023 Miscellaneous Notes* Telephone Encounter - Liliana Smith RN - 04/24/2022 11:01 AM EST Pt called and is notified of providers results and instructions. Pt voices understanding. Liliana Smith, RN * Telephone Encounter - Paul Kendrick MD - 04/24/2022 8:30 AM EST Final labs are in. Only abnormality was tsh which if borderline. Likely is ok rechek thyroid labs in two weeks. documented in this encounter[facility]01[facility]23 History of Present illness Narrative* Addis Mendez LPN - 04/10/2022 1:19 PM EST Patient presents for B-12 injection. Denies any problems at this time. Patient instructed on any SEof medication, verbalized understanding and agreed to proceed with treatment. Tolerated injection well. Addis Mendez LPN documented in this encounter[facility]01-09-2023 Miscellaneous Notes* Telephone Encounter - Cassius Selby PA-C - 04/09/2022 4:26 AM EST See [facility] chart message Diomedes Selby PA-C documented in this encounterU[facility]01-04-2023 History of Present illness Narrative* Paul Kendrick MD - 04/04/2022 2:07 PM EST Patient presents with: 6 Month Exam HPI: Patient presents today for office visit for follow up. Soles of feet still very painful. Recent new custom insoles but not helping very much. Needs to make follow up with Dr. Avelar Taking omeprazole 20mg. Not consistent. Symptoms not controlled. Severe reflux. No longer using CPAP. States was not seeing benefit from use. Discussed the concerns of untreated cpap. Continues on Vyvanse. Doing well. Concerns with hair loss and breakage X 4 months. Discuss lab results. Does not recall having covid. No weight changes or fatigued. Still on gabapentin and trazodone. Component Latest Ref Rng & Units 03/31/2022 WBC 3.70 - 11.00 k/uL 4.97 RBC 3.90 - 5.20 m/uL 4.23 Hemoglobin 11.5 - 15.5 g/dL 12.9 Hematocrit 36.0 - 46.0 % 38.9 MCV 80.0 - 100.0 fL 92.0 MCH 26.0 - 34.0 pg 30.5 MCHC 30.5 - 36.0 g/dL 33.2 RDW-CV 11.5 - 15.0 % 12.8 Platelet Count 150 - 400 k/uL 189 MPV 9.0 - 12.7 fL 10.5 Neut% % 54.1 Abs Neut (ANC) 1.45 - 7.50 k/uL 2.69 Lymph% % 32.8 Abs Lymph 1.00 - 4.00 k/uL 1.63 Loup% % 9.7 Abs Loup <0.87 k/uL 0.48 Eosin% % 2.4 Abs Eosin <0.46 k/uL 0.12 Baso% % 0.8 Abs Baso <0.11 k/uL 0.04 Immature Gran % % 0.2 IMMATURE GRANS (ABS) <0.10 k/uL <0.03 NRBC /100 WBC 0.0 Absolute nRBC <0.01 k/uL <0.01 DTYPE Auto Protein, Total 6.3 - 8.0 g/dL 6.2 (L) Albumin 3.9 - 4.9 g/dL 4.0 Calcium 8.5 - 10.2 mg/dL 8.9 Bilirubin, Total 0.2 - 1.3 mg/dL 1.5 (H) Alkaline Phosphatase 34 - 123 U/L 54 AST 13 - 35 U/L 26 ALT 7 - 38 U/L 19 Glucose 74 - 99 mg/dL 86 BUN 7 - 21 mg/dL 12 Creatinine 0.58 - 0.96 mg/dL 0.78 Sodium 136 - 144 mmol/L 139 Potassium 3.7 - 5.1 mmol/L 3.9 Chloride 97 - 105 mmol/L 105 CO2 22 - 30 mmol/L 24 Anion Gap 9 - 18 mmol/L 10 eGFR >=60 mL/min/1.73m 100 Magnesium 1.7 - 2.3 mg/dL 2.1 Vitamin D 25 Hydroxy 31.0 - 80.0 ng/mL 101.0 (H) MEDICATIONS: Current Outpatient Medications Medication Sig gabapentin (NEURONTIN) 300 mg capsule Take 3 capsules by mouth daily at bedtime for 90 days. traZODone (DESYREL) 100 mg tablet Take 1 tablet by mouth daily at bedtime. omeprazole (PRILOSEC) 20 mg capsule Take 1 capsule by mouth daily before breakfast. 1/2 hr before meal. ergocalciferol 50,000 unit capsule (VITAMIN D2, DRISDOL) Take 1 capsule by mouth two times a week. levonorgestrel (MIRENA) 20 mcg/24 hours (7 yrs) 52 mg IUD 1 Each by INTRAUTERINE route as directed. VYVANSE 60 mg capsule 1 capsule once daily. Current Facility-Administered Medications Medication Dose Route Frequency cyanocobalamin 1,000 mcg injection 1,000 mcg INTRAMUSCULAR q 1 MONTH ALLERGIES: ALLERGIES Allergen Reactions Adhesive Tape (Maite* Rash Aspirin Unable to take aspirin after having gastric bypass surgery Effexor [Venlafaxin* Other: See Comments Dry heaves, shaking uncotrollable Latex Rash Nsaids (Non-Steroid* due to gastric bypass Wellbutrin [Bupropi* Other: See Comments Seizure-was on overdose. Has taken it since then and done fine. PAST MEDICAL HISTORY Diagnosis Date Anemia Chlamydia 2003,2008,2013 x3 Herpes simplex virus (HSV) infection History of gastric bypass 09/08/2015 Hypoglycemia 08/12/13 Iron deficiency 08/29/2016 Kidney stone Marijuana use Mental disorder RLS (restless legs syndrome) Amezquita Seizure Overdose of Wellbutrin Seizures (HCC) Thrombosed hemorrhoids 2013 PAST SURGICAL HISTORY Procedure Laterality Date DELIVERY ONLY 2003 , low cervical DELIVERY ONLY N/A 04/23/2016 GASTRIC BYPASS HX 04/2011 HEMORRHOIDECTOMY NEUROPLASTY &/TRANSPOS MEDIAN NRV CARPAL TUNNE Right 02/11/2020 Right carpal tunnel release PAST SURGICAL HISTORY OF kidney stone PAST SURGICAL HISTORY OF 01/2020 bilateral fallopian tubes removed REPAIR FIRST ABDOMINAL WALL HERNIA 04/08/2018 Hernia repair, incisional REVISE MEDIAN N/CARPAL TUNNEL SURG Left 03/11/2020 FAMILY HISTORY Problem Relation Age of Onset Alcohol/Drug Father Hypertension Maternal Grandfather CHF Heart Maternal Grandfather [place] Cancer Paternal Grandmother throat cancer Stroke Paternal Grandmother Blood Clots No Family History Clotting Disorder No Family History Anesthesia Problems No Family History Social History Tobacco Use Smoking status: Every Day Packs/day: 0.50 Years: 15.00 Pack years: 7.50 Types: Cigarettes Smokeless tobacco: Never Vaping Use Vaping Use: Never used Substance Use Topics Alcohol use: Yes Comment: social Drug use: No Comment: Hx marijuana use Reviewed current medications, allergies, past medical history, surgical history, family history andsocial history today. REVIEW OF SYSTEMS All other reviewed and negative other than HPI. VITALS: BP 112/68 Pulse 89 Ht 165.1 cm (5' 5) Wt 82.1 kg (181 lb) LMP 05/10/2021 SpO2 98% BMI 30.12 kg/m Last 4 Encounter Wt Readings: Date: Wt: 02/09/2022 81.3 kg (179 lb 3.2 oz) 10/03/2021 83 kg (183 lb) 07/31/2021 86.2 kg (190 lb) 07/12/2021 84.6 kg (186 lb 8 oz) PHYSICAL EXAMINATION: General appearance: Well appearing, alert, in no acute distress, well-hydrated, well nourished. Skin: Skin color, texture, turgor normal, no suspicious rashes or lesions Head: Normocephalic, no masses, lesions, tenderness or abnormalities Neck: Supple, no adenopathy; thyroid symmetric, normal size, no bruits Lungs: Lungs clear to auscultation. No wheezing, rhonchi, rales Heart: RRR without murmur, gallop, or rubs. No ectopy Abdomen: Normal abdominal exam, Abdomen soft, non-tender. Bowel sounds normal. No masses, organomegaly Extremities: No deformities, edema, skin discoloration, clubbing or cyanosis. Good capillary refill. ASSESSMENT/PLAN: 1. Seizures (HCC) - ICD9: 780.39, ICD10: R56.9 (primary diagnosis) - no issues. 2. RLS (restless legs syndrome) - ICD9: 333.94, ICD10: G25.81 - continue meds. 3. FLOR (obstructive sleep apnea) - ICD9: 327.23, ICD10: G47.33 - consider resuming cpap 4. Other vitamin B12 deficiency anemia - ICD9: 281.1, ICD10: D51.8 - VITAMIN B12 BLOOD 5. Folic acid deficiency (non anemic) - ICD9: 266.2, ICD10: E53.8 - check lab.s 6. Other specified nutritional anemias - ICD9: 281.8, ICD10: D53.8 7. Vitamin D deficiency - ICD9: 268.9, ICD10: E55.9 - stop d and recheck labs in a few weeks 8. History of depression - ICD9: V11.8, ICD10: Z86.59 - doing much better. 9. Poisoning by vitamin D, undetermined intent, sequela - ICD9: 909.0, E989, ICD10: T45.2X4S - VITAMIN D 25 HYDROXY 10. Folate deficiency - ICD9: 266.2, ICD10: E53.8 - FOLATE SERUM 11. History of gastric bypass - ICD9: V45.86, ICD10: Z98.84 - VITAMIN B12 BLOOD - VITAMIN B1 (THIAMINE), WHOLE BLOOD - IRON + TIBC 12. Hair loss - ICD9: 704.00, ICD10: L65.9 - check labs. - TSH BLD 13. Hyperbilirubinemia - ICD9: 782.4, ICD10: E80.6 - stable. - BILIRUBIN FRACTION Paul Kendrick documented in this encounter[facility]12-[facility]22 History of Present illness Narrative* Addis Mendez LPN - 03/08/2022 1:18 PM EST Patient presents for B-12 injection. Denies any problems at this time. Patient instructed on any SEof medication, verbalized understanding and agreed to proceed with treatment. Tolerated injection well. Addis Mendez LPN documented in this encounterUc [facility]11-14-2022 Miscellaneous Notes* Telephone Encounter - Asia Miller MD - 02/12/2022 7:16 AM EST See result note Flagyl sent in documented in this encounterUc [facility]11-11-2022 History of Present illness Narrative* Asia Miller MD - 02/09/2022 10:45 AM EST Design Consultant offered: Patient declines. Citlali Beckwith is a 36 year old female who presents for vaginal odor and discharge. New sexual partner about 1 week ago. No fevers, chills, vomiting, pain, dysuria. No known STD exposure. Tubal and IUD. Past medical, surgical, social history, medications and allergies reviewed and updated. OBJECTIVE: BP 100/64 Wt 179 lb 3.2 oz (81.3kg) LMP 05/10/2021 GENERAL: Well developed, well nourished in no apparent distress ABDOMEN: soft and non-tender PELVIC: external genitalia normal, normal Bartholin's glands, urethra, Agra's glands, no vulvar lesions, no cervical lesions, good vaginal support, physiologic discharge present, normal appearing perineal body and perianal region ASSESSMENT/PLAN: Vaginal odor and discharge Office Visit on 02/09/22 BACTERIAL VAGINOSIS AMPLIFICATION GC/CHLAMYDIA DNA DET BARRIE / TRICHOMONAS AMPLIFICATION Screening as above Asia Miller DO Medical Decision Making: Problems: Low: Acute, uncomplicated illness or injury Data: Unique test(s) ordered: 3+ Medical Decision Making Level: 3 - Low [facility] History of Present illness Narrative* Addis Mendez LPN - 02/08/2022 1:18 PM EST Patient presents for B-12 injection. Denies any problems at this time. Patient instructed on any SEof medication, verbalized understanding and agreed to proceed with treatment. Tolerated injection well. Addis Mendez LPN [facility] Miscellaneous Notes* Telephone Encounter - Antonio Ogden LPN - 02/05/2022 1:50 PM EST Patient phones requesting refills as follows: Requested Prescriptions Pending Prescriptions Disp Refills gabapentin (NEURONTIN) 300 mg capsule 90 capsule 2 Sig: Take 3 capsules by mouth daily at bedtime for 90 days. CLARENCE 10/03/21 04/04/22 Please review and advise. Antonio Ogden LPN documented in this [facility]10-07-2022 Miscellaneous Notes* Telephone Encounter - Antonio Ogden LPN - 01/05/2022 8:51 AM EDT Patient phones requesting refills as follows: Requested Prescriptions Pending Prescriptions Disp Refills gabapentin (NEURONTIN) 300 mg capsule 90 capsule 2 Sig: Take 3 capsules by mouth daily at bedtime for 90 days. CLARENCE 10/03/21 04/04/22 Please review and advise. Antonio Ogden LPN documented in this [facility]09-30[facility]2022 Miscellaneous Notes* Telephone Encounter - Cassius Selby PA-C - 2021 11:26 AM EDT The following approved medication requests have been transmitted electronically. Requested Prescriptions Signed Prescriptions Disp Refills traZODone (DESYREL) 100 mg tablet 30 tablet 5 Sig: Take 1 tablet by mouth daily at bedtime. Cassius Selby PA-C documented in this [facility]09-09[facility]2022 History of Present illness Narrative* Addis Mendez LPN - 12/08/2021 1:27 PM EDT Patient presents for B-12 injection. Denies any problems at this time. Patient instructed on any SEof medication, verbalized understanding and agreed to proceed with treatment. Tolerated injection well. Addis Mendez LPN documented in this [facility]09-07-2022 Miscellaneous Notes* Telephone Encounter - Addis Mendez LPN - 12/06/2021 8:36 AM EDT Patient scheduled for nurse visit 12/08/21 to receive B-[address] new administrationorder at this time. Addis Mendez LPN [facility] History of Present illness Narrative* Addis Mendez LPN - 11/08/2021 1:15 PM EDT Patient presents for B-12 injection. Denies any problems at this time. Patient instructed on any SEof medication, verbalized understanding and agreed to proceed with treatment. Tolerated injection well. Addis Mendez LPN [facility] Miscellaneous Notes* Telephone Encounter - Meche Walsh Ma - 10/17/2021 2:12 PM EDT PA advised that all alternative options will not treat acne. Patient is aware and does have dermatology appointment set up Meche Walsh Ma * Telephone Encounter - Meche Walsh Ma - 10/17/2021 1:06 PM EDT PA received back and denied mediciad advised must try an fail alternatives: -benzoyl peroxide -clindamycin phosphate (gel, lotion, or solution) -erythomycin (gel or solution) -sodium sulfacetamide Please choose alternative and send to [facility], patient is aware that alternative will need sent Meche Walsh Ma * Telephone Encounter - Meche Walsh Ma - 10/17/2021 10:16 AM EDT Prior Authorization has been completed online at [employer] for RETINA-A gel, will await response. [id number] Please keep encounter open until final decision has been received and documented from insurance company. Meche Walsh MA [facility] Miscellaneous Notes* Telephone Encounter - Cassius Selby PA-C - 10/10/2021 6:24 PM EDT The following approved medication requests have been transmitted electronically. Signed Prescriptions Disp Refills traZODone (DESYREL) 50 mg tablet 135 tablet 1 Sig: Take 1.5 tablets by mouth daily at bedtime. OSCAR: No Cassius Selby PA-C [facility] History of Present illness Narrative* Addis Mendez LPN - 10/06/2021 1:25 PM EDT Patient presents for B-12 injection. Denies any problems at this time. Patient instructed on any SEof medication, verbalized understanding and agreed to proceed with treatment. Tolerated injection well. Addis Mendez LPN [facility] Miscellaneous Notes* Telephone Encounter - Isabel Rodriges LPN - 10/04/2021 12:41 PM EDT Spoke with patient. She is going to speak with pharmacy regarding cost and consider seeing dermatology. * Telephone Encounter - Cassius Selby PA-C - 10/04/2021 9:25 AM EDT Please advise insurance won't cover Retin-A micro without other acne treatment first. Other acne meds will not have the same effect with whiteheads. The best treatment would then be curettage: opening each comedone and removing the white kernel Could do derm consult if wanted. Thanks, Diomedes Selby PA-C * Telephone Encounter - Meche Walsh Ma - 10/03/2021 4:38 PM EDT [facility] forTretinoin Microsphere Gel denial received advised patient needs to try alternatives: -benzoyl peroxide -clindamycin phosphate -sodium sulfacetamide Please choose alternative and send to Kvng Walsh Ma * Telephone Encounter - Meche Walsh Ma - 10/03/2021 4:30 PM EDT Images from the original note were not included. Will leave open until fax received Meche Walsh Ma * Telephone Encounter - Meche Walsh Ma - 10/03/2021 3:04 PM EDT Prior Authorization has been completed online at [employer] for Tretinoin Microsphere Gel, will await response. [id number] Please keep encounter open until final decision has been received and documented from insurance company. Meche Walsh MA documented [facility] Instructions* Patient Instructions* Cassius Selby PA-C - 10/03/2021 2:14 PM EDT Cholesterol What is cholesterol? Cholesterol is a type of fat that circulates in your blood. Cholesterol comes from two sources: Your body makes some cholesterol on its own, regardless of what you eat. Cholesterol also comes from the foods you eat. Cholesterol is found only in animal products. Foods from plants do not contain cholesterol. How does cholesterol travel in the blood? Cholesterol can't travel in the blood on its own. It's carried by special proteins. Combinations ofcholesterol and protein carriers are called lipoproteins. There are two types of lipoproteins: Low-density lipoproteins (LDLs, or bad cholesterol) High-density lipoproteins (HDLs, or good cholesterol) Think of LDLs as delivery trucks and HDLs as garbage trucks. LDLs milk pickup driver cholesterol from the liver and deliver it to cells. HDLs remove excess cholesterol from the blood and take it to the liver. Sunny's total cholesterol level is a combination of LDL and HDL cholesterol. What's so bad about cholesterol? Your body produces more than enough cholesterol on its own to stay healthy. Most Americans eat far too much cholesterol and fat, which can raise blood cholesterol levels. High levels of cholesterol can lead to heart disease. Excess LDL cholesterol in your blood gets deposited in arteries, the blood vessels that feed the heart and brain. These deposits can join with other substances to form plaque. Plaque is a thick, harddeposit in the blood vessel. The name for build-up of plaque in the arteries is atherosclerosis, orhardening of the arteries. Plaque can narrow the passageway inside the artery and pinch off the flow of blood to the heart muscle. How can I get my cholesterol level checked? Your health care provider can check your cholesterol level by taking a sample of blood. The blood sample will be sent to a lab for testing. The test will show your total cholesterol level. How much cholesterol is too much? A healthy cholesterol level depends on a variety of factors, including: Your level of HDL cholesterol compared with your level of LDL cholesterol Your total cholesterol Your number of risk factors for heart disease Your age and activity level Your current health status Be sure to discuss your test results with your health care provider. High total cholesterol does not always indicate an increased risk for heart disease. If you have high total cholesterol and high HDL cholesterol, you may not have an increased risk. Women, in particular, have higher HDL levels than men. For example, a woman with high HDL levels can have a total cholesterol level of 240 or over without an increased risk. Risk factors for heart disease Diabetes Smoking High blood pressure Poor blood cholesterol Obesity Sedentary lifestyle Age (men, age 45 and older; women, age 55 and older) Family history of heart disease How can I lower my cholesterol? Here are few tips for lowering cholesterol: Eat fewer fats and fried foods. Choose non-fat and low-fat versions of foods, if available. When eating fats, select unsaturated fats. (Unsaturated fats are liquid at room temperature vegetable oils, for example. Avoid tropical oils, such as palm and coconut oil.) Choose fish and poultry more often than red meat. Limit total amount of meat, fish, poultry, and low-fat cheeses to 7 ounces or less each day. Exercise. If you smoke, quit. Lose extra weight. Eat more soluble fiber. Good sources are fruits, beans, peas, and oats. Limit egg yolks to no more than three per week. (Egg whites are fat-free.) Where can I learn more? National Heart, Lung, and Blood Iron [employer] Health Information Center Attention: Web Site [address] [address] [place] [address] TTY e-mail: For all correspondence, please indicate that your request results from your visit to the NHL[employer] website, www.nhlbi.nih.gov/health. Copyright 4026-1732 The [facility]. All rights reserved. This information is provided by the [facility] and is not intended to replace the medical advice of your doctor or health care provider. Please consult your health care provider for advice about a specific medical condition. For additional written health information, please contact the HealthInformation Center at the [facility] or toll-free extension [phone]. This document was last reviewed on: 2003 Eating to Lower Your Cholesterol It's fairly easy to lower your blood cholesterol. Here are some simple daily tips: Use up at least as many calories as you take in. Be physically active. Aim for at least 30 minutes of physical activity on most days of the week, if not all. Eat a variety of nutrient-rich foods. Eat a diet rich in vegetables and fruits. Choose whole-grain, high-fiber foods. Eat fish at least twice a week. Eat less of the nutrient-poor foods. Limit how much saturated fat, trans fat and cholesterol you eat. Choose lean meats and poultry without skin and prepare them without added saturated and trans fat. Select fat-free, 1 percent fat, and low-fat dairy products. Cut back on foods containing partially hydrogenated vegetable oils to reduce trans fat in your diet. Cut back on foods high in dietary cholesterol. Choose and prepare foods with little or no salt. If you drink alcohol, drink in moderation. Follow the [place] [employer] recommendations when you eat out. Read the nutrition facts label and ingredients list. Adapted from the [place] [employer]: www.americanheart.org Guidelines for low cholesterol, low triglyceride diets FOODS TO USE MEATS/FISH - Choose lean meats (chicken, turkey, veal, and nonfatty cuts of beef with excess fat trimmed; one serving = 3 oz. of cooked meat). Also, fresh or frozen fish, canned fish packed in water,and shellfish (lobster, crab, shrimp, oysters). Limit use to no more than one serving of one of these per week. Shellfish are high in cholesterol but low in saturated fat and should be used sparingly. Meats and fish should be broiled (jose or oven) or baked on a rack. EGGS - Egg substitutes and egg whites (use freely). Egg yolks (limit two per week). FRUITS - Eat three servings of fresh fruit per day (1 serving = 1/2 cup). Be sure to have at least one citrus fruit daily. Frozen or canned fruit with no sugar or syrup added may be used. VEGETABLES - Most vegetables are not limited (see Foods to Avoid). One dark green (string beans, escarole) or one deep yellow (squash) vegetable is recommended daily. Cauliflower, broccoli, and celery, as well as potato skins, are recommended for their fiber content (fiber is associated with cholesterol reduction). It is preferable to steam vegetables, but they may be boiled, strained, or braisedwith polyunsaturated vegetable oil (see below). BEANS - Dried peas or beans (1 serving = 1/2 cup) may be used as a bread substitute. NUTS - Almonds, walnuts, and peanuts may be used sparingly (1 serving = 1 tablespoon). Use pumpkin,sesame, or sunflower seeds. BREADS/GRAINS - One roll or one slice of whole grain or enriched bread may be used, or three soda crackers or four pieces of naga toast as a substitute. Spaghetti, rice or noodles (1/2 cup) or 1/2 large ear of corn may be used as a bread substitute. In preparing these foods, do not use butter or shortening; use soft margarine. Also use egg and sugar substitutes. Choose high fiber grains, such asoats and whole wheat. CEREALS - Use 1/2 cup of hot cereal or 1/4 cup of cold cereal per day. Add a sugar substitute if desired, with 99% fat-free or skim milk. MILK PRODUCTS - Always use 99% fat-free or skim milk, dairy products such as low-fat cheeses (hamilton's, uncreamed diet cottage), low-fat yogurt, and powdered skim milk. FATS/OILS - Use soft (not stick) margarine, vegetable oils that are high in polyunsaturated fats (such as safflower, sunflower, soybean, corn, and cottonseed). Always refrigerate meat drippings to harden the fat and remove it before preparing gravies. DESSERTS/SNACKS - Limit to two servings per day; substitute each serving for a bread/cereal serving; ice milk or water sherbet (1/4 cup); unflavored gelatin or gelatin flavored with sugar substitute (1/2 cup); pudding prepared with skim milk (1/2 cup); egg white souffles; unbuttered popcorn (1 1/2 cups). Substitute carob for chocolate. BEVERAGES - Fresh fruit juices (limit to 4 oz. per day); black coffee; plain or herbal teas; soft drinks with sugar substitutes; club soda, preferably salt- free; cocoa made with skim milk or nonfat dried milk and water (sugar substitute added, if desired); clear broth. Alcohol - limit to two servings per day (see Foods to Avoid). MISCELLANEOUS - You may use the following freely: vinegar; spices; herbs; nonfat bouillon; mustard;Worcestershire sauce; soy sauce; flavoring essence. FOODS TO AVOID MEATS/FISH - Marbled beef, pork, luu, sausage and other pork products; fatty fowl (duck, goose); skin and fat of turkey and chicken; processed meats; luncheon meats (salami, [facility]); frankfurters and fast food hambergers (they are loaded with fat); organ meats (kidneys, liver); canned fish packed in oil. EGGS - Limit egg yolks to two per week. FRUITS - Coconuts (rich in saturated fat) VEGETABLES - Avoid avocados. Starchy vegetables (potatoes, corn owusu beans, dried peas, beans) may be used only if they are substitutes for a serving of bread or cereal. (Baked potato skin, however, is desirable for its fiber content). BEANS - Commercial baked beans with sugar and/or pork added. NUTS - Avoid nuts. Limit peanuts and walnuts to one tablespoonful per day. BREADS/GRAINS - Any baked goods with shortening and/or sugar. Commercial mixes with dried eggs and whole milk. Avoid sweet rolls, doughnuts, breakfast pastries (Wolof), and sweetened packaged cereals (the added sugar converts readily to triglycerides). MILK PRODUCTS - Whole milk and whole-milk packaged goods; cream; ice cream; whole-milk puddings, yogurt, or cheeses; nondairy cream substitutes. FATS/OILS - Butter, lard, animal fats, luu drippings, gravies, cream sauces, as well as palm and coconut oils. All these are high in saturated fats. Examine labels on cholesterol free products for hydrogenated fats. (These are oils that have been hardened into solids and in the process have become saturated.) DESSERTS/SNACKS - Fried snack foods like potato chips; chocolate; candies in general; jams, jellies, syrups; whole-milk puddings; ice cream and milk sherberts; hydrogenatd peanut butter. BEVERAGES - Sugared fruit juices and soft drinks; cocoa made with whole milk and/or sugar. When using alcohol (1 oz. liquor, 5 oz. beer, or 2 1/2 oz. dry table wine per serving), one serving must be substituted for one bread or cereal serving (limit two servings of alcohol per day). Topical tretinoin (topical all-trans retinoic acid): Patient drug information Access [employer]Center[employer] Online for additional drug information, tools, and databases. Copyright 1537-2026 [employer] All rights reserved. Contributor Disclosures (For additional information see Topical tretinoin (topical all-trans retinoic acid): Drug information and see Topical tretinoin (topical all-trans retinoic acid): Pediatric drug information) You must carefully read the Consumer Information Use and Disclaimer below in order to understand and correctly use this information. Brand Names: [place] Altreno; Atralin; Avita; Refissa; Cornfields; Cornfields Pump; Retin-A; Retin-A Micro; Retin-A Micro Pump Brand Names: Christi Retin-A; Retin-A Micro; Stieva-A What is this drug used for? It is used to treat pimples (acne). It is used on the face to treat wrinkles, skin spots, and skin that feels rough. What do I need to tell my doctor BEFORE I take this drug? If you are allergic to this drug; any part of this drug; or any other drugs, foods, or substances. Tell your doctor about the allergy and what signs you had. If your skin is sunburned, sensitive to light, or you have any other skin problems. If you are taking any drugs that may make your skin more sensitive to light. There are many drugs that can do this. Ask your doctor or pharmacist if you are not sure. If you are . This is not a list of all drugs or health problems that interact with this drug. Tell your doctor and pharmacist about all of your drugs (prescription or OTC, natural products, vitamins) and health problems. You must check to make sure that it is safe for you to take this drug with all of your drugs and health problems. Do not start, stop, or change the dose of any drug withoutchecking with your doctor. What are some things I need to know or do while I take this drug? Tell all of your health care providers that you take this drug. This includes your doctors, nurses,pharmacists, and dentists. It may take several weeks to see the full effects. Do not use more than what your doctor told you to use. Do not use more often or longer than what you were told. Doing any of these things may raise the chance of very bad side effects. Do not put on sunburned skin. Do not put on cuts, scrapes, eczema, or damaged skin. Practice good skin care and avoid the sun. You may get sunburned more easily. Avoid sun, sunlamps, and tanning beds. Use sunscreen and wear clothing and eyewear that protects you from the sun. Some weather conditions may irritate the skin. Talk with the doctor. Use of other skin products while using this drug may cause more irritation. Talk with your doctor before you use other drugs or products on your skin. You may use make-up unless your doctor has told you not to. If you will be using make-up, clean thearea to be treated before putting this drug on. This drug may cause harm if swallowed. If this drug is swallowed, call a doctor or poison control center right away. This drug may cause harm to the unborn baby if you take it while you are . If you are or you get while taking this drug, call your doctor right away. Tell your doctor if you are breast-feeding. You will need to talk about any risks to your baby. What are some side effects that I need to call my doctor about right away? WARNING/CAUTION: Even though it may be rare, some people may have very bad and sometimes deadly side effects when taking a drug. Tell your doctor or get medical help right away if you have any of thefollowing signs or symptoms that may be related to a very bad side effect: Signs of an allergic reaction, like rash; hives; itching; red, swollen, blistered, or peeling skin with or without fever; wheezing; tightness in the chest or throat; trouble breathing, swallowing, ortalking; unusual hoarseness; or swelling of the mouth, face, lips, tongue, or throat. Skin reaction that is very bad, bothers you, or does not go away. What are some other side effects of this drug? All drugs may cause side effects. However, many people have no side effects or only have minor sideeffects. Call your doctor or get medical help if any of these side effects or any other side effects bother you or do not go away: Feeling of warmth. Burning or stinging. Change in color of skin. Some skin reactions may happen with this drug. These include dry skin, redness, swelling, blisters,and peeling. If these skin reactions happen, talk with your doctor. Your doctor may want you to stop using this drug for some time, change how much you use, or change how often you use this drug. These are not all of the side effects that may occur. If you have questions about side effects, call your doctor. Call your doctor for medical advice about side effects. You may report side effects to your national health agency. How is this drug best taken? Use this drug as ordered by your doctor. Read all information given to you. Follow all instructionsclosely. All products: Do not take this drug by mouth. Use on your skin only. Keep out of your mouth, nose, and eyes (may burn). If you get this drug in any of these areas, rinse well with water. Some products are to be used at bedtime. For some products it does not matter. Check with the pharmacist about how to use this drug. Wash your hands before and after use. Wash affected skin and pat dry. You may need to wait 20 to 30 minutes before use. Check with the pharmacist about how to use this drug. Put a thin layer on the affected skin and rub in gently. Wrinkle cream: Do not wash your face for at least 1 hour after putting on this drug. Do not use other skin products or makeup for at least 1 hour after putting it on. Put on a moisturizing sunscreen in the morning (SPF 15 or higher). Gel: This drug may catch on fire. Do not use near an open flame or while smoking. What do I do if I miss a dose? Skip the missed dose and go back to your normal time. Do not put on 2 doses at the same time or extra doses. How do I store and/or throw out this drug? All products: Store at room temperature. Do not freeze. Keep all drugs in a safe place. Keep all drugs out of the reach of children and pets. Throw away unused or drugs. Do not flush down a toilet or pour down a drain unless you are told to do so. Check with your pharmacist if you have questions about the best way to throw out drugs. There may be drug take-back programs in your area. Gel: Protect from heat or open flame. Pump: Store upright with the cap on. General drug facts If your symptoms or health problems do not get better or if they become worse, call your doctor. Do not share your drugs with others and do not take anyone else's drugs. Some drugs may have another patient information leaflet. If you have any questions about this drug,please talk with your doctor, nurse, pharmacist, or other health care provider. If you think there has been an overdose, call your poison control center or get medical care right away. Be ready to tell or show what was taken, how much, and when it happened. Last Reviewed [id number] Consumer Information Use and Disclaimer This generalized information is a limited summary of diagnosis, treatment, and/or medication information. It is not meant to be comprehensive and should be used as a tool to help the user understand and/or assess potential diagnostic and treatment options. It does NOT include all information about conditions, treatments, medications, side effects, or risks that may apply to a specific patient. Itis not intended to be medical advice or a substitute for the medical advice, diagnosis, or treatment of a health care provider based on the health care provider's examination and assessment of a patient's specific and unique circumstances. Patients must speak with a health care provider for complete information about their health, medical questions, and treatment options, including any risks or benefits regarding use of medications. This information does not endorse any treatments or medications as safe, effective, or approved for treating a specific patient. [employer] and its affiliatesdisclaim any warranty or liability relating to this information or the use thereof. The use of thisinformation is governed by the Terms of Use, available at https://www.PharmMD.com/en/know/jenyadum-huauhrzbmizgn-cegsc. 2021 [employer] and its affiliates and/or licensors. All rights reserved. Use of UpToDate is subject to the Terms of Use. Topic 55703 Version 173.0 Close The use of UpToDate is subject to the Terms of Use. documented in this encounter[facility] History of Present illness Narrative* Cassius Selby PA-C - 10/03/2021 1:54 PM EDT 35 year old female with c/o Soles of feet very painful. Has custom insoles. Having trouble walking without house shoes. Sees Dr. Avelar. S/P gastric bypass: doing well Issues with kidney stones, 2 surgeries laser and lithotripsy. Planning to do 24h urine. RLS Gabapentin 300mg qHS helps but has insomnia anyway. Using CPAP nightly Which helps. On Trazedone 50mg Continues on Vyvanse: doing well on medication. Getting B12 injections, taking vit D and folic acid routinely. Component Latest Ref Rng & Units 07/12/2021 WBC 3.70 - 11.00 k/uL 5.15 RBC 3.90 - 5.20 m/uL 4.58 Hemoglobin 11.5 - 15.5 g/dL 13.9 Hematocrit 36.0 - 46.0 % 41.0 MCV 80.0 - 100.0 fL 89.5 MCH 26.0 - 34.0 pg 30.3 MCHC 30.5 - 36.0 g/dL 33.9 RDW-CV 11.5 - 15.0 % 12.4 Platelet Count 150 - 400 k/uL 250 MPV 9.0 - 12.7 fL 9.6 Neut% % 48.0 Abs Neut (ANC) 1.45 - 7.50 k/uL 2.47 Lymph% % 38.8 Abs Lymph 1.00 - 4.00 k/uL 2.00 Loup% % 9.3 Abs Loup <0.87 k/uL 0.48 Eosin% % 2.7 Abs Eosin <0.46 k/uL 0.14 Baso% % 1.0 Abs Baso <0.11 k/uL 0.05 Immature Gran % % 0.2 IMMATURE GRANS (ABS) <0.10 k/uL <0.03 NRBC /100 WBC 0.0 Absolute nRBC <0.01 k/uL <0.01 DTYPE Auto Folate >4.7 ng/mL 8.5 Potassium 3.7 - 5.1 mmol/L 3.7 Estradiol 17B pg/mL 124 FSH See comment mIU/mL 3.7 Vitamin D 25 Hydroxy 31.0 - 80.0 ng/mL 18.5 (L) HISTORIES FAMILY HISTORY Problem Relation Age of Onset Alcohol/Drug Father Hypertension Maternal Grandfather CHF Heart Maternal Grandfather [place] Cancer Paternal Grandmother throat cancer Stroke Paternal Grandmother Blood Clots No Family History Clotting Disorder No Family History Anesthesia Problems No Family History PAST MEDICAL HISTORY Diagnosis Date Anemia Chlamydia 2003,2008,2013 x3 Herpes simplex virus (HSV) infection History of gastric bypass 09/08/2015 Hypoglycemia 5/14/14 Iron deficiency 08/29/2016 Kidney stone Marijuana use Mental disorder RLS (restless legs syndrome) Amezquita Seizure Overdose of Wellbutrin Seizures (HCC) Thrombosed hemorrhoids 2013 PAST SURGICAL HISTORY Procedure Laterality Date DELIVERY ONLY 2002 , low cervical DELIVERY ONLY N/A 04/23/2016 GASTRIC BYPASS HX 04/2011 HEMORRHOIDECTOMY NEUROPLASTY &/TRANSPOS MEDIAN NRV CARPAL TUNNE Right 02/11/2020 Right carpal tunnel release PAST SURGICAL HISTORY OF kidney stone PAST SURGICAL HISTORY OF 01/2020 bilateral fallopian tubes removed REPAIR FIRST ABDOMINAL WALL HERNIA 04/08/2018 Hernia repair, incisional REVISE MEDIAN N/CARPAL TUNNEL SURG Left 03/11/2020 Social History Tobacco Use Smoking status: Current Every Day Smoker Packs/day: 0.50 Years: 15.00 Pack years: 7.50 Types: Cigarettes Smokeless tobacco: Never Used Vaping Use Vaping Use: Never used Substance Use Topics Alcohol use: Yes Comment: social Drug use: No Comment: Hx marijuana use ACTIVE PROBLEM LIST Tobacco Use History of Recurrent Uti (Urinary Tract Infection) History of Herpes Genitalis History of Depression History of Marijuana Use Rls (Restless Legs Syndrome) Anemia Due to Vitamin B12 Deficiency Anemia Cervical High Risk Hpv (Human Papillomavirus) Test Positive Flor (Obstructive Sleep Apnea) Seizures (Hcc) History of Angelika-En-Y Gastric Bypass Vitamin D Deficiency Folic Acid Deficiency (Non Anemic) Current Outpatient Medications Medication Sig Dispense Refill gabapentin (NEURONTIN) 300 mg capsule Take 3 capsules by mouth daily at bedtime for 90 days. 90 capsule 2 traZODone (DESYREL) 50 mg tablet Take 1 tablet by mouth daily at bedtime. 30 tablet 2 ergocalciferol 50,000 unit capsule (VITAMIN D2, DRISDOL) Take 1 capsule by mouth two times a week. 24 capsule 3 levonorgestrel (MIRENA) 20 mcg/24 hours (7 yrs) 52 mg IUD 1 Each by INTRAUTERINE route as directed.1 Each 0 folic acid 1 mg tablet Take 1 tablet by mouth once daily. 30 tablet 5 VYVANSE 60 mg capsule 1 capsule once daily. omeprazole (PRILOSEC) 20 mg capsule Take 1 capsule by mouth daily before breakfast. 1/2 hr before meal. 30 capsule 1 Current Facility-Administered Medications Medication Dose Route Frequency Provider Last Rate Last Admin cyanocobalamin 1,000 mcg injection 1,000 mcg INTRAMUSCULAR q 1 MONTH Milan Hernandez MD 1,000 mcg at 09/08/21 1315 COVID-19 VACCINE(1) Never done PNEUMOCOCCAL(1 - PCV) Never done EXAM: BP 120/72 Pulse 60 Resp 16 Wt 83 kg (183 lb) LMP 05/10/2021 SpO2 98% BMI 30.45 kg/m Pleasant overweight but healthy appearing adult woman in no acute distress. Alert and oriented all spheres. Normal affect and cognition. Speech normal. No deficits to learning or comprehension. Skin warm, dry, pink to lips and nailbeds. Normal turgor. Multiple closed comedones on face Respirations regular and unlabored. HEENT: NCAT. No scleral icterus or conjunctival injection. TM's clear. Nose and oropharynx free from injection or lesion. Oral membranes moist and pink. No cervical lymph nodes. Thyroid non-tender, no masses, or enlargement. Carotids pulses 2+/4+ without bruits. No JVD with HOB at 30 degrees. Chest is normal shape. Lungs are clear to all corbett with good air exchange through out. HRRR without murmur or gallop. No lifts, heaves, or rubs. Extrem: no clubbing or cyanosis. Edema: none. Extremities are warm and pink with prompt capillary refill. ASSESSMENT/PLAN: 1. GERD without esophagitis - ICD9: 530.81, ICD10: K21.9 (primary diagnosis) - Discussed lifestyle modifications including losing weight, limiting caffeine, no meals three hours before sleep and head of bed elevation - OMEPRAZOLE 20 MG CAPSULE,DELAYED RELEASE - CBC + DIFF - COMP METABOLIC PANEL - MAGNESIUM BLD 2. RLS (restless legs syndrome) - ICD9: 333.94, ICD10: G25.81 Stable on medicatioin - GABAPENTIN 300 MG CAPSULE - CBC + DIFF - COMP METABOLIC PANEL 3. Gastroenteritis - ICD9: 558.9, ICD10: K52.9 Improved, no current sx - CBC + DIFF - COMP METABOLIC PANEL - MAGNESIUM BLD 4. Acne comedone - ICD9: 706.1, ICD10: L70.0 New medication reviewed: cautions, warnings, rest useif flushing, cautions with sun- increased skincancer risk - TRETINOIN MICROSPHERES 0.1 % TOPICAL GEL 5. Chronic insomnia - ICD9: 780.52, ICD10: F51.04 Trial Trazedone 50mg tabs: 25-75mg dosing to tolerance. New medication reviewed. 6. FLOR (obstructive sleep apnea) - ICD9: 327.23, ICD10: G47.33 Compliant with CPAP 7. Vitamin D deficiency - ICD9: 268.9, ICD10: E55.9 Recheck next visit - VITAMIN D 25 HYDROXY Cassius Selby PA-C documented [facility] encounter[facility] History of Present illness Narrative* Addis Mendez LPN - 09/08/2021 1:11 PM EDT Patient presents for B-12 injection. Denies any problems at this time. Patient instructed on any SEof medication, verbalized understanding and agreed to proceed with treatment. Tolerated injection well. Addis Mendez LPN documented in this encounter[facility]05-31-[facility]22 Miscellaneous Notes* Telephone Encounter - Nicole Duff Ma - 08/29/2021 12:27 PM EDT CLARENCE 04/05/21 NOV 10/03/21 documented in this encounter[facility]22 History of Present illness Narrative* Addis Mendez LPN - 08/08/2021 1:26 PM EDT Patient presents for B-12 injection. Denies any problems at this time. Patient instructed on any SEof medication, verbalized understanding and agreed to proceed with treatment. Tolerated injection well. Addis Mendez LPN documented in this encounter[facility]05-[facility]22 History of Present illness Narrative* Tomasa Alarcon APRN.CNM - 07/31/2021 1:34 PM EDT Citlali Beckwith is a 35 year old female who presents for vaginal pruritis and discharge for 3 days. She reports having vaginal irritation after intercourse with partner. No condom, lubricant or lotionsused. Mirena IUD for contraception just recently placed. Vaginal discharge: moderate amount, foul smelling and white. Itching: YES Dyspareunia: No Fever/chills: No Abdominal pain: No Bladder: Negative for dysuria or frequency Bowel: No blood in stool, pain with BM, tarry stool, persistent diarrhea or constipation Any new sexual partners or concern for STD exposure: No Any history of STDs: None Does your partner have any new complaints: No Are you currently taking any medications to treat vaginitis: No Do you use feminine sprays, douches or deodorants: No Contraception: IUD Last pap: 2019, normal Past medical, surgical, social history, medications and allergies reviewed and updated. OBJECTIVE: BP 108/70 Wt 190 lb (86.2kg) LMP 05/10/2021 GENERAL: Well developed, well nourished in no apparent distress ABDOMEN: soft, non-tender and no masses PELVIC: external genitalia normal, normal Bartholin's glands, urethra, Agra's glands, no vulvar lesions, no cervical lesions, good vaginal support, physiologic discharge present, normal appearing perineal body and perianal region BIMANUAL: uterus normal size, shape and consistency, no adnexal masses, non- tender and no cervical motion tenderness. RECTOVAGINAL: deferred. ASSESSMENT/PLAN: 1. Vaginal discharge - ICD9: 623.5, ICD10: N89.8 (primary diagnosis) - BACT/BARRIE VAG GRAM STAIN 2. Vaginal pruritus - ICD9: 698.1, ICD10: N89.8 - Discussed possible contact dermatitis from partner's skin lotion - Diflucan 150 mg PO x 1 - rx sent per patient's request - Monistat 7 PV x 7 nights STD screening: Declined STD check. Any new medications given to the patient have been explained as to directions, reasons for prescribing and side effects. Perineal hygiene and safe sex were discussed with the patient. Will notify patient of results and plan of care RTO- OVIDIO Alarcon APRN.CNM I spent a total of 20 minutes on the date of the service which included preparing to see the patient, [id number] patient care, completing clinical documentation, obtaining and/or reviewing separately obtained history, performing a medically appropriate examination, counseling and educating the pat ient/family/caregiver and ordering medications, tests, or procedures. documented in this encounter[facility]04-15-2022 Miscellaneous Notes* Telephone Encounter - Di Perkins LPN - 07/14/2021 8:18 AM EDT Pt notified and voices understanding. Di Perkins LPN * Telephone Encounter - Milan Hernandez MD - 07/14/2021 8:05 AM EDT Notify patient that her vitamin D level is low, start ergocalciferol 50,000 U twice weekly Signed Prescriptions Disp Refills ergocalciferol 50,000 unit capsule (VITAMIN D2, DRISDOL) 24 capsule 3 Sig: Take 1 capsule by mouth two times a week. Authorizing Provider: MILAN HERNANDEZ Order entered - please phone pharmacy and notify patient. Milan Hernandez MD documented in this encounter[facility]04-13-[facility]22 History of Present illness Narrative* Milan Hernandez MD - 07/12/2021 5:30 PM EDT Hematology and Medical Oncology PATIENT NAME: Citlali Beckwith. CLINIC NO: [id number]. ATTENDING PHYSICIAN: Milan Hernandez MD. DATE OF SERVICE:07/12/2021. DIAGNOSIS: History of iron deficiency, vitamin B12, folic acid and vitamin D deficiency PERFORMANCE STATUS:100% HPI: 35-year-old female with history of iron deficiency anemia and vitamin B12 deficient after gastric bypass since 2011. She was started on vitamin B12 injections for several years for vitamin B12 deficiency. She has stopped iron supplements since her last . She was tested again for sleep apnea last year because of restless leg symptom. Her sleep study was negative, but she was iron deficient. Patient currently denied change in bowel habits, no rectal bleeding or melena. Repeat iron study last month showediron deficiency in 2018. Her vitamin B12 and folic acid levels were normal. She is not taking any vitamin on trace mineral supplement at this time. interim history: She is doing well with monthly vitamin B12 injection. She has no fatigue, shortness of breath or restless-legs symptoms. No changes in bowel habit or upper GI symptoms. She is not oniron or multivitamin or trace mineral supplement. She had not had an iron infusion for several years and there is no evidence of anemia. MEDICATIONS: Current Outpatient Medications Medication Sig gabapentin (NEURONTIN) 300 mg capsule Take 3 capsules by mouth daily at bedtime for 90 days. levonorgestrel (MIRENA) 20 mcg/24 hours (7 yrs) 52 mg IUD 1 Each by INTRAUTERINE route as directed. traZODone (DESYREL) 50 mg tablet Take 1 tablet by mouth daily at bedtime. folic acid 1 mg tablet Take 1 tablet by mouth once daily. VYVANSE 60 mg capsule 1 capsule once daily. metroNIDAZOLE (METROGEL VAGINAL) 0.75 % Vaginal Gel Use 1 Applicator vaginally twice daily. (Patient not taking: Reported on 05/03/2021 ) CPAP 30 day download, send 30 day detailed download. mask (pt pref), nasal pillows may be too big, try nasal, filters, heated humidity & tubing. Lifetime supplies. FLOR G47.33npi [id number] CPAP Initiate Auto PAP @ 5-20 cm of water with humidification. Mask (per patient preference) optional chin strap (if indicated) , filters, tubing, humidifier and lifetime supplies. Current Facility-Administered Medications Medication Dose Route Frequency cyanocobalamin 1,000 mcg injection 1,000 mcg INTRAMUSCULAR q 1 MONTH . ALLERGIES: ALLERGIES Allergen Reactions Adhesive Tape (Maite* Rash Aspirin Unable to take aspirin after having gastric bypass surgery Effexor [Venlafaxin* Other: See Comments Dry heaves, shaking uncotrollable Latex Rash Nsaids (Non-Steroid* due to gastric bypass Wellbutrin [Bupropi* Other: See Comments Seizure-was on overdose. Has taken it since then and done fine. . PAST MEDICAL HISTORY: PAST MEDICAL HISTORY Diagnosis Date Anemia Chlamydia 2003,2008,2013 x3 Herpes simplex virus (HSV) infection History of gastric bypass 09/08/2015 Hypoglycemia 08/12/13 Iron deficiency 08/29/2016 Kidney stone Marijuana use Mental disorder RLS (restless legs syndrome) Amezquita Seizure Overdose of Wellbutrin Seizures (HCC) Thrombosed hemorrhoids 2013 . PAST SURGICAL HISTORY: PAST SURGICAL HISTORY Procedure Laterality Date DELIVERY ONLY 2002 , low cervical DELIVERY ONLY N/A 04/23/2016 GASTRIC BYPASS HX 04/2011 HEMORRHOIDECTOMY NEUROPLASTY &/TRANSPOS MEDIAN NRV CARPAL TUNNE Right 02/11/2020 Right carpal tunnel release PAST SURGICAL HISTORY OF kidney stone PAST SURGICAL HISTORY OF 01/2020 bilateral fallopian tubes removed REPAIR FIRST ABDOMINAL WALL HERNIA 04/08/2018 Hernia repair, incisional REVISE MEDIAN N/CARPAL TUNNEL SURG Left 03/11/2020 . FAMILY HISTORY: FAMILY HISTORY Problem Relation Age of Onset Alcohol/Drug Father Hypertension Maternal Grandfather CHF Heart Maternal Grandfather [place] Cancer Paternal Grandmother throat cancer Stroke Paternal Grandmother Blood Clots No Family History Clotting Disorder No Family History Anesthesia Problems No Family History . SOCIAL HISTORY: Social History Tobacco Use Smoking status: Current Every Day Smoker Packs/day: 0.50 Years: 15.00 Pack years: 7.50 Types: Cigarettes Smokeless tobacco: Never Used Vaping Use Vaping Use: Never used Substance Use Topics Alcohol use: Yes Comment: social Drug use: No Comment: Hx marijuana use . PHYSICAL EXAMINATION: BP 157/75 Pulse 82 Temp 98.5 Wt 187 lb (84.8kg) LMP 05/10/2021 HEENT: Head is normocephalic, atraumatic. Sclerae white, conjunctivae pink. PEERL. EOMs are intact.Oropharynx is benign. LYMPHATICS: There is no palpable adenopathy in the neck, supraclavicular region, axillae, or groin. LUNGS: Lungs are clear to percussion and auscultation. HEART: Heart is normal without murmurs, gallops, or rubs. ABDOMEN: Soft and nontender without organomegaly. No masses can be palpated. EXTREMITIES: Are without edema. NEUROLOGIC: Exam is physiologic LABORATORY DATA: Component Latest Ref Rng & Units 07/12/2021 WBC 3.70 - 11.00 k/uL 5.15 RBC 3.90 - 5.20 m/uL 4.58 Hemoglobin 11.5 - 15.5 g/dL 13.9 Hematocrit 36.0 - 46.0 % 41.0 MCV 80.0 - 100.0 fL 89.5 MCH 26.0 - 34.0 pg 30.3 MCHC 30.5 - 36.0 g/dL 33.9 RDW-CV 11.5 - 15.0 % 12.4 Platelet Count 150 - 400 k/uL 250 MPV 9.0 - 12.7 fL 9.6 Neut% % 48.0 Abs Neut (ANC) 1.45 - 7.50 k/uL 2.47 Lymph% % 38.8 Abs Lymph 1.00 - 4.00 k/uL 2.00 Loup% % 9.3 Abs Loup <0.87 k/uL 0.48 Eosin% % 2.7 Abs Eosin <0.46 k/uL 0.14 Baso% % 1.0 Abs Baso <0.11 k/uL 0.05 Immature Gran % % 0.2 IMMATURE GRANS (ABS) <0.10 k/uL <0.03 NRBC /100 WBC 0.0 Absolute nRBC <0.01 k/uL <0.01 DTYPE Auto Component Latest Ref Rng & Units 04/11/2021 Protein, Total 6.3 - 8.0 g/dL 7.0 Albumin 3.9 - 4.9 g/dL 4.7 Calcium 8.5 - 10.2 mg/dL 9.5 Bilirubin, Total 0.2 - 1.3 mg/dL 1.1 Alkaline Phosphatase 34 - 123 U/L 69 AST 13 - 35 U/L 27 Glucose 74 - 99 mg/dL 83 BUN 7 - 21 mg/dL 17 Creatinine 0.58 - 0.96 mg/dL 0.78 Sodium 136 - 144 mmol/L 138 Potassium 3.7 - 5.1 mmol/L 3.6 (L) Chloride 97 - 105 mmol/L 102 CO2 22 - 30 mmol/L 26 Anion Gap 9 - 18 mmol/L 10 ALT 7 - 38 U/L 34 eGFR- >60 eGFR-All Other Races . >60 Iron 41 - 186 ug/dL 81 TIBC 232 - 386 ug/dL 310 Transferrin Saturation 15 - 57 % 26 Vitamin B12 232 - 1,245 pg/mL 652 Folate >4.7 ng/mL 3.6 (L) ASSESSMENT: 35-year-old lady status post gastric bypass with history of iron deficiency, vitamin B12, folic acid, and vitamin D deficiency. -She is doing well on monthly vitamin B12 injection. PLAN: -Continue vitamin B12 injection monthly at PCPs office -Start folic acid and multivitamin with trace mineral daily -Check calcium vitamin D 25 level today and possibly starting ergocalciferol if needed for vitamin D deficiency. -She agreed to follow-up with Dr. Kendrick Portions of this documentation were copied and pasted from previous office visit notes in order to provide a cohesive continuity of the history. The note has been reviewed and edited and updated as necessary. Milan Hernandez MD. ELECTRONICALLY SIGNED Cc: Dr. Paul Kendrick documented in this encounter[facility]04-13-2022 History of Present illness Narrative* Asia Miller MD - 07/12/2021 3:07 PM EDT Citlali Beckwith presents today for IUD check. She had a Mirena placed on 06/07/2021. She has had spotting since placement. REVIEW OF SYSTEMS: No fevers, chills, pain. +Vaginal discharge noticed by a nurse at time of lithotripsy. PHYSICAL EXAMINATION: BP 120/80 Wt 186 lb 8 oz (84.6kg) LMP 05/10/2021 ABDOMEN:soft and non-tender EXTERNAL GENITALIA: Normal genitalia and Bartholins, Urethra, Sken'e normal CERVIX: smooth, no lesions. IUD strings visible. UTERUS: normal size and non-tender ADNEXA: negative for tenderness or masses IMPRESSION/PLAN: IUD correctly positioned. Patient counseled regarding monthly string check. Followup for annual exam or sooner if needed. BV/yeast for discharge. Reviewed bleeding and pain expectations, and reasons to call. Asia Miller DO Medical Decision Making: Problems: Low: Acute, uncomplicated illness or injury Risk: Low: Low risk from testing/treatment Medical Decision Making Level: 3 - Low documented in this encounter[facility]04-[facility]-2022 History of Present illness Narrative* Addis Mendez LPN - 07/10/2021 1:35 PM EDT Patient presents for B-12 injection. Denies any problems at this time. Patient instructed on any SEof medication, verbalized understanding and agreed to proceed with treatment. Tolerated injection well. Addis Mendez LPN documented in this encounter[facility]04-11-2022 Miscellaneous Notes* Telephone Encounter - Honey Delgado MA - 07/10/2021 8:04 AM EDT Patient has been identified by name and date of : Yes Pending Prescriptions Disp Refills GABAPENTIN 300 MG CAPSULE 90 capsule 2 Sig: Take 3 capsules by mouth daily at bedtime for 90 days. OSCAR: No RX INSTRUCTIONS: Patient aware RX will be sent to pharmacy. No need to notify patient. Honey Delgado MA Clarence: 04/2021 Nov: 09/2021 Last refill; 04/2021 90 capsules 2 refills documented in this encounterUc [facility]03-13-2021 History of Present illness Narrative* Sherrie Mendez Tech (Tech) - 06/11/2020 9:20 AM EST Radiology Service Progress Note PATIENT NAME: Citlali Beckwith DATE OF SERVICE: June 11, 2020 TIME: 9:19 AM PATIENT IDENTITY VERIFICATION COMPLETED USING TWO (2) IDENTIFIERS: Name and Date of confirmedby patient verbally. FALL SCREENING: Has the patient had 2 falls in the last year or 1 fall with injury or currently using an Ambulatory Assistive Device (Walker, Cane, Wheelchair, Crutches, etc.)? No PATIENT GENDER DATA: Female. status: : No status: NO. PATIENT RELEVANT IMPLANT DATA REVIEWED: Not Applicable RADIOLOGY DEPARTMENT: General X-ray: Exam(s) Completed: Upper Extremity X- Ray(s): Fingers/Thumb, right : PERIPHERAL IV DATA: Not applicable SIGNED BY: Demetra Polanco June 11, 2020 9:19 AM documented in this encounterUc [facility]05-31-2017 History of Past illness Narrative* Problem Noted Date Resolved Date Iron deficiency 08/29/2016 12/04/2019 UTI (urinary tract infection) in , ante 02/16/2016 02/16/2016 Urgency of urination 01/19/2016 08/29/2016 Frequency of micturition 01/19/2016 017 Trichomonal vaginitis during in second trimester 11/28/2015 08/29/2016 Overview: November 28, 2015 positive trich was negative a month ago, informed patient of STD and she and and any partners need treated. Consider additional STD testing at next visit and Recommend retesting in 6 weeks Lian Queen MD January 03, 2016 Still + trich treat 2000mg flagyl daily x 7 days. Carlie Campbell MD 02/13/16 Still pos trich. Rx tinizadole. Kimberly Nova, JESICA March 13, 2016 Neg. trich. Carlie Campbell MD History of gastric bypass 09/08/20152019 History of delivery, currently 09/08/2015 05/07/2016 Overview: 09/08/2015 Pt had a previous C section by Dr Zamarripa. She is considering a vs repeat C section by Dr Campbell.TKRN 09/08/2015W C section report states CPD and failure to progress as reason for C Section.TKRN September 15, 2015 Patient not interested in TOLAC, desires repeat c/s. Carlie Campbell MD January 30, 2016 Desires repeat c/s and tubal. R/B/A to sterilization reviewed, title 19 signed. Carlie Campbell MD Tobacco use in 09/08/2015 017 Overview: 09/08/2015Pt smokes 1/2 pack a day of cigarettes. Discussed risks of smoking during . Advised pt to quit.TKRN H/O macrosomia in infant in prior , currently 09/08/2015 08/29/2016 Overview: 09/08/2015 Pt's previous lavell birthweight was 9#14oz. TKRN Patient requested diagnostic testing 09/08/2015 11/21/2015 Overview: 09/08/2015Pt desires nuchal ultrasound with sequential testing. TKRN History of kidney stones 09/08/2015 016 Marijuana abuse 04/27/2015 08/29/2016 Recurrent UTI (urinary tract infection) complicating 07/22/2014 08/29/2016 Overview: November 28, 2015 Recommend daily antibiotic Lian Queen MD November 21, 2015 Klebsiella UTI and treated with septra. Rpt urine culture 4 weeks. Kimberly JESICA Nova January 03, 2016 Consider doing cath specimens for her as suspect low colony counts may be contamination. Carlie Campbell MD Kidney stones 07/22/2014 09/13/2015 Thrombosed external hemorrhoid 08/14/2013 0 09/13/2015 Routine general medical exam ination at a health care facility 06/30/2009 09/13/2015 Overview: 06/30/2009, from Dr. Guerra Routine gynecological examination 06/30/2009 09/13/2015 Overview: [facility], [facility] [place] Morbid obesity 06/30/2009 09/13/2015 Insomnia 06/30/2009 09/13/2015 Attention deficit disorder 07/14/200708/29 Overview: Controlled substance agreement-03/19/2015 Adjustment disorder with depressed mood 07/14/19 08 08/29/2016 Seborrheic dermatitis, unspecified 06/12/2007 08/29/2016 Unspecified adjustment reaction 12/19/2006 07/14/2007 documented as of this encounter (statuses as of 07/10/2021) [facility]05-31-2017 History of Past illness Narrative* Problem Noted Date Resolved Date Iron deficiency 08/29/2016 12/04/2019 UTI (urinary tract infection) in , ante 02/16/2016 02/16/2016 Urgency of urination 01/19/2016 08/29/2016 Frequency of micturition 01/19/2016 017 Trichomonal vaginitis during in second trimester 11/28/2015 08/29/2016 Overview: November 28, 2015 positive trich was negative a month ago, informed patient of STD and she and and any partners need treated. Consider additional STD testing at next visit and Recommend retesting in 6 weeks Lian Queen MD January 03, 2016 Still + trich treat 2000mg flagyl daily x 7 days. Carlie Campbell MD 02/13/16 Still pos trich. Rx tinizadole. Kimberly Nova, JESICA March 13, 2016 Neg. trich. Carlie Campbell MD History of gastric bypass 09/08/20152019 History of delivery, currently 09/08/2015 05/07/2016 Overview: 09/08/2015 Pt had a previous C section by Dr Zamarripa. She is considering a vs repeat C section by Dr Campbell.TKRN 09/08/2015W C section report states CPD and failure to progress as reason for C Section.TKRN September 15, 2015 Patient not interested in TOLAC, desires repeat c/s. Carlie Campbell MD January 30, 2016 Desires repeat c/s and tubal. R/B/A to sterilization reviewed, title 19 signed. Carlie Campbell MD Tobacco use in 09/08/2015 017 Overview: 09/08/2015Pt smokes 1/2 pack a day of cigarettes. Discussed risks of smoking during . Advised pt to quit.TKRN H/O macrosomia in in prior , currently 09/08/2015 08/29/2016 Overview: 09/08/2015 Pt's previous lavell birthweight was 9#14oz. TKRN Patient requested diagnostic testing 09/08/2015 11/21/2015 Overview: 09/08/2015Pt desires nuchal ultrasound with sequential testing. TKRN History of kidney stones 09/08/2015 016 Marijuana abuse 04/27/2015 08/29/2016 Recurrent UTI (urinary tract infection) complicating 07/22/2014 08/29/2016 Overview: November 28, 2015 Recommend daily antibiotic Lian Queen MD November 21, 2015 Klebsiella UTI and treated with septra. Rpt urine culture 4 weeks. Kimberly JESICA Nova January 03, 2016 Consider doing cath specimens for her as suspect low colony counts may be contamination. Carlie Campbell MD Kidney stones 07/22/2014 09/13/2015 Thrombosed external hemorrhoid 08/14/2013 0 09/13/2015 Routine general medical exam ination at a health care facility 06/30/2009 09/13/2015 Overview: 06/30/2009, from Dr. Guerra Routine gynecological examination 06/30/2009 09/13/2015 Overview: [facility] [place] Morbid obesity 06/30/2009 09/13/2015 Insomnia 06/30/2009 09/13/2015 Attention deficit disorder 07/14/200708/29 Overview: Controlled substance agreement-03/19/2015 Adjustment disorder with depressed mood 07/14/19 08 08/29/2016 Seborrheic dermatitis, unspecified 06/12/2007 08/29/2016 Unspecified adjustment reaction 12/19/2006 07/14/2007 documented as of this encounter (statuses as of 07/10/2021) [facility]2017 History of Past illness Narrative* Problem Noted Date Resolved Date Iron deficiency 08/29/2016 12/04/2019 UTI (urinary tract infection) in , ante 02/16/2016 02/16/2016 Urgency of urination 01/19/2016 08/29/2016 Frequency of micturition 01/19/2016 017 Trichomonal vaginitis during in second trimester 11/28/2015 08/29/2016 Overview: November 28, 2015 positive trich was negative a month ago, informed patient of STD and she and and any partners need treated. Consider additional STD testing at next visit and Recommend retesting in 6 weeks Lian Queen MD January 03, 2016 Still + trich treat 2000mg flagyl daily x 7 days. Carlie Campbell MD 02/13/16 Still pos trich. Rx tinizadole. Kimberly Nova CNP March 13, 2016 Neg. trich. Carlie Campbell MD History of gastric bypass 09/08/20152019 History of delivery, currently 09/08/2015 05/07/2016 Overview: 09/08/2015 Pt had a previous C section by Dr Zamarripa. She is considering a vs repeat C section by Dr Campbell.TKRN 09/08/2015W C section report states CPD and failure to progress as reason for C Section.TKRN September 15, 2015 Patient not interested in TOLAC, desires repeat c/s. Carlie Campbell MD January 30, 2016 Desires repeat c/s and tubal. R/B/A to sterilization reviewed, title 19 signed. Carlie Campbell MD Tobacco use in 09/08/2015 017 Overview: 09/08/2015Pt smokes 1/2 pack a day of cigarettes. Discussed risks of smoking during . Advised pt to quit.TKRN H/O macrosomia in infant in prior , currently 09/08/2015 08/29/2016 Overview: 09/08/2015 Pt's previous lavell birthweight was 9#14oz. TKRN Patient requested diagnostic testing 09/08/2015 11/21/2015 Overview: 09/08/2015Pt desires nuchal ultrasound with sequential testing. TKRN History of kidney stones 09/08/2015 016 Marijuana abuse 04/27/2015 08/29/2016 Recurrent UTI (urinary tract infection) complicating 07/22/2014 08/29/2016 Overview: November 28, 2015 Recommend daily antibiotic Lian Queen MD November 21, 2015 Klebsiella UTI and treated with septra. Rpt urine culture 4 weeks. Kimberly Nova CNP January 03, 2016 Consider doing cath specimens for her as suspect low colony counts may be contamination. Carlie Campbell MD Kidney stones 07/22/2014 09/13/2015 Thrombosed external hemorrhoid 08/14/2013 0 09/13/2015 Routine general medical exam ination at a health care facility 06/30/2009 09/13/2015 Overview: 06/30/2009, from Dr. Guerra Routine gynecological examination 06/30/2009 09/13/2015 [facility]: [facility] [place] Morbid obesity 06/30/2009 09/13/2015 Insomnia 06/30/2009 09/13/2015 Attention deficit disorder 07/14/200708/29 Overview: Controlled substance agreement-03/19/2015 Adjustment disorder with depressed mood 07/14/19 08 08/29/2016 Seborrheic dermatitis, unspecified 06/12/2007 08/29/2016 Unspecified adjustment reaction 12/19/2006 07/14/2007 documented as of this encounter (statuses as of 07/12/2021) [facility]2017 History of Past illness Narrative* Problem Noted Date Resolved Date Iron deficiency 08/29/2016 12/04/2019 UTI (urinary tract infection) in , ante 02/16/2016 02/16/2016 Urgency of urination 01/19/2016 08/29/2016 Frequency of micturition 01/19/2016 017 Trichomonal vaginitis during in second trimester 11/28/2015 08/29/2016 Overview: November 28, 2015 positive trich was negative a month ago, informed patient of STD and she and and any partners need treated. Consider additional STD testing at next visit and Recommend retesting in 6 weeks Lian Queen MD January 03, 2016 Still + trich treat 2000mg flagyl daily x 7 days. Carlie Campbell MD 02/13/16 Still pos trich. Rx tinizadole. Kimberly Nova, CERTIFIED CODING SPECIALIST March 13, 2016 Neg. trich. Carlie Campbell MD History of gastric bypass 09/08/20152019 History of delivery, currently 09/08/2015 05/07/2016 Overview: 09/08/2015 Pt had a previous C section by Dr Zamarripa. She is considering a vs repeat C section by Dr Campbell.TKRN 09/08/2015W C section report states CPD and failure to progress as reason for C Section.TKRN September 15, 2015 Patient not interested in TOLAC, desires repeat c/s. Carlie Campbell MD January 30, 2016 Desires repeat c/s and tubal. R/B/A to sterilization reviewed, title 19 signed. Carlie Campbell MD Tobacco use in 09/08/2015 017 Overview: 09/08/2015Pt smokes 1/2 pack a day of cigarettes. Discussed risks of smoking during . Advised pt to quit.TKRN H/O macrosomia in in prior , currently 09/08/2015 08/29/2016 Overview: 09/08/2015 Pt's previous lavell birthweight was 9#14oz. TKRN Patient requested diagnostic testing 09/08/2015 11/21/2015 Overview: 09/08/2015Pt desires nuchal ultrasound with sequential testing. TKRN History of kidney stones 09/08/2015 016 Marijuana abuse 04/27/2015 08/29/2016 Recurrent UTI (urinary tract infection) complicating 07/22/2014 08/29/2016 Overview: November 28, 2015 Recommend daily antibiotic Lian Queen MD November 21, 2015 Klebsiella UTI and treated with septra. Rpt urine culture 4 weeks. Kimberly Nova CNP January 03, 2016 Consider doing cath specimens for her as suspect low colony counts may be contamination. Carlie Campbell MD Kidney stones 07/22/2014 09/13/2015 Thrombosed external hemorrhoid 08/14/2013 0 09/13/2015 Routine general medical exam ination at a health care facility 06/30/2009 09/13/2015 Overview: 06/30/2009, from Dr. Guerra Routine gynecological examination 06/30/2009 09/13/2015 Overview: [facility] [place] Morbid obesity 06/30/2009 09/13/2015 Insomnia 06/30/2009 09/13/2015 Attention deficit disorder 07/14/200708/29 Overview: Controlled substance agreement-03/19/2015 Adjustment disorder with depressed mood 07/14/19 08 08/29/2016 Seborrheic dermatitis, unspecified 06/12/2007 08/29/2016 Unspecified adjustment reaction 12/19/2006 07/14/2007 documented as of this encounter (statuses as of 07/13/2021) [facility]2017 History of Past illness Narrative* Problem Noted Date Resolved Date Iron deficiency 08/29/2016 12/04/2019 UTI (urinary tract infection) in , ante 02/16/2016 02/16/2016 Urgency of urination 01/19/2016 08/29/2016 Frequency of micturition 01/19/2016 017 Trichomonal vaginitis during in second trimester 11/28/2015 08/29/2016 Overview: November 28, 2015 positive trich was negative a month ago, informed patient of STD and she and and any partners need treated. Consider additional STD testing at next visit and Recommend retesting in 6 weeks Lian Queen MD January 03, 2016 Still + trich treat 2000mg flagyl daily x 7 days. Carlie Campbell MD 02/13/16 Still pos trich. Rx tinizadole. Kimberly Nova, JESICA March 13, 2016 Neg. trich. Carlie Campbell MD History of gastric bypass 09/08/20152019 History of delivery, currently 09/08/2015 05/07/2016 Overview: 09/08/2015 Pt had a previous C section by Dr Zamarripa. She is considering a vs repeat C section by Dr Campbell.TKRN 09/08/2015W C section report states CPD and failure to progress as reason for C Section.TKRN September 15, 2015 Patient not interested in TOLAC, desires repeat c/s. Carlie Campbell MD January 30, 2016 Desires repeat c/s and tubal. R/B/A to sterilization reviewed, title 19 signed. Carlie Campbell MD Tobacco use in 09/08/2015 017 Overview: 09/08/2015Pt smokes 1/2 pack a day of cigarettes. Discussed risks of smoking during . Advised pt to quit.TKRN H/O macrosomia in in prior , currently 09/08/2015 08/29/2016 Overview: 09/08/2015 Pt's previous lavell birthweight was 9#14oz. TKRN Patient requested diagnostic testing 09/08/2015 11/21/2015 Overview: 09/08/2015Pt desires nuchal ultrasound with sequential testing. TKRN History of kidney stones 09/08/2015 016 Marijuana abuse 04/27/2015 08/29/2016 Recurrent UTI (urinary tract infection) complicating 07/22/2014 08/29/2016 Overview: November 28, 2015 Recommend daily antibiotic Lian Queen MD November 21, 2015 Klebsiella UTI and treated with septra. Rpt urine culture 4 weeks. Kimberly Nova CNP January 03, 2016 Consider doing cath specimens for her as suspect low colony counts may be contamination. Carlie Campbell MD Kidney stones 07/22/2014 09/13/2015 Thrombosed external hemorrhoid 08/14/2013 0 09/13/2015 Routine general medical exam ination at a health care facility 06/30/2009 09/13/2015 Overview: 06/30/2009, from Dr. Guerra Routine gynecological examination 06/30/2009 09/13/2015 Overview: [facility] [place] Morbid obesity 06/30/2009 09/13/2015 Insomnia 06/30/2009 09/13/2015 Attention deficit disorder 07/14/200708/29 Overview: Controlled substance agreement-03/19/2015 Adjustment disorder with depressed mood 07/14/19 08 08/29/2016 Seborrheic dermatitis, unspecified 06/12/2007 08/29/2016 Unspecified adjustment reaction 12/19/2006 07/14/2007 documented as of this encounter (statuses as of 07/14/2021) [facility]2017 History of Past illness Narrative* Problem Noted Date Resolved Date Iron deficiency 08/29/2016 12/04/2019 UTI (urinary tract infection) in , ante 02/16/2016 02/16/2016 Urgency of urination 01/19/2016 08/29/2016 Frequency of micturition 01/19/2016 017 Trichomonal vaginitis during in second trimester 11/28/2015 08/29/2016 Overview: November 28, 2015 positive trich was negative a month ago, informed patient of STD and she and and any partners need treated. Consider additional STD testing at next visit and Recommend retesting in 6 weeks Lian Queen MD January 03, 2016 Still + trich treat 2000mg flagyl daily x 7 days. Carlie Campbell MD 02/13/16 Still pos trich. Rx tinizadole. Kimberly Nova, JESICA March 13, 2016 Neg. trich. Carlie Campbell MD History of gastric bypass 09/08/20152019 History of delivery, currently 09/08/2015 05/07/2016 Overview: 09/08/2015 Pt had a previous C section by Dr Zamarripa. She is considering a vs repeat C section by Dr Campbell.TKRN 09/08/2015[facility] C section report states CPD and failure to progress as reason for C Section.TKRN September 15, 2015 Patient not interested in TOLAC, desires repeat c/s. Carlie Campbell MD January 30, 2016 Desires repeat c/s and tubal. R/B/A to sterilization reviewed, title 19 signed. Carlie Campbell MD Tobacco use in 09/08/2015 017 Overview: 09/08/2015Pt smokes 1/2 pack a day of cigarettes. Discussed risks of smoking during . Advised pt to quit.TKRN H/O macrosomia in in prior , currently 09/08/2015 08/29/2016 Overview: 09/08/2015 Pt's previous lavell birthweight was 9#14oz. TKRN Patient requested diagnostic testing 09/08/2015 11/21/2015 Overview: 09/08/2015Pt desires nuchal ultrasound with sequential testing. TKRN History of kidney stones 09/08/2015 016 Marijuana abuse 04/27/2015 08/29/2016 Recurrent UTI (urinary tract infection) complicating 07/22/2014 08/29/2016 Overview: November 28, 2015 Recommend daily antibiotic Lian Queen MD November 21, 2015 Klebsiella UTI and treated with septra. Rpt urine culture 4 weeks. Kimberly Nova CNP January 03, 2016 Consider doing cath specimens for her as suspect low colony counts may be contamination. Carlie Campbell MD Kidney stones 07/22/2014 09/13/2015 Thrombosed external hemorrhoid 08/14/2013 0 09/13/2015 Routine general medical exam ination at a health care facility 06/30/2009 09/13/2015 Overview: 06/30/2009, from Dr. Guerra Routine gynecological examination 06/30/2009 09/13/2015 Overview: [facility] [place] Morbid obesity 06/30/2009 09/13/2015 Insomnia 06/30/2009 09/13/2015 Attention deficit disorder 07/14/200708/29 Overview: Controlled substance agreement-03/19/2015 Adjustment disorder with depressed mood 07/14/19 08 08/29/2016 Seborrheic dermatitis, unspecified 06/12/2007 08/29/2016 Unspecified adjustment reaction 12/19/2006 07/14/2007 documented as of this encounter (statuses as of 07/31/2021) [facility] History of Past illness Narrative* Problem Noted Date Resolved Date Iron deficiency 08/29/2016 12/04/2019 UTI (urinary tract infection) in , ante 02/16/2016 02/16/2016 Urgency of urination 01/19/2016 08/29/2016 Frequency of micturition 01/19/2016 017 Trichomonal vaginitis during in second trimester 11/28/2015 08/29/2016 Overview: November 28, 2015 positive trich was negative a month ago, informed patient of STD and she and and any partners need treated. Consider additional STD testing at next visit and Recommend retesting in 6 weeks Lian Queen MD January 03, 2016 Still + trich treat 2000mg flagyl daily x 7 days. Carlie Campbell MD 02/13/16 Still pos trich. Rx tinizadole. Kimberly Nova, JESICA March 13, 2016 Neg. trich. Carlie Campbell MD History of gastric bypass 09/08/20152019 History of delivery, currently 09/08/2015 05/07/2016 Overview: 09/08/2015 Pt had a previous C section by Dr Zamarripa. She is considering a vs repeat C section by Dr Campbell.TKRN 09/08/2015W C section report states CPD and failure to progress as reason for C Section.TKRN September 15, 2015 Patient not interested in TOLAC, desires repeat c/s. Carlie Campbell MD January 30, 2016 Desires repeat c/s and tubal. R/B/A to sterilization reviewed, title 19 signed. Carlie Campbell MD Tobacco use in 09/08/2015 017 Overview: 09/08/2015Pt smokes 1/2 pack a day of cigarettes. Discussed risks of smoking during . Advised pt to quit.TKRN H/O macrosomia in in prior , currently 09/08/2015 08/29/2016 Overview: 09/08/2015 Pt's previous lavell birthweight was 9#14oz. TKRN Patient requested diagnostic testing 09/08/2015 11/21/2015 Overview: 09/08/2015Pt desires nuchal ultrasound with sequential testing. TKRN History of kidney stones 09/08/2015 016 Marijuana abuse 04/27/2015 08/29/2016 Recurrent UTI (urinary tract infection) complicating 07/22/2014 08/29/2016 Overview: November 28, 2015 Recommend daily antibiotic Lian Queen MD November 21, 2015 Klebsiella UTI and treated with septra. Rpt urine culture 4 weeks. Kimberly JESICA Nova January 03, 2016 Consider doing cath specimens for her as suspect low colony counts may be contamination. Carlie Campbell MD Kidney stones 07/22/2014 09/13/2015 Thrombosed external hemorrhoid 08/14/2013 0 09/13/2015 Routine general medical exam ination at a health care facility 06/30/2009 09/13/2015 Overview: 06/30/2009, from Dr. Guerra Routine gynecological examination 06/30/2009 09/13/2015 Overview: [facility], [facility] [place] Morbid obesity 06/30/2009 09/13/2015 Insomnia 06/30/2009 09/13/2015 Attention deficit disorder 07/14/200708/29 Overview: Controlled substance agreement-03/19/2015 Adjustment disorder with depressed mood 07/14/19 08 08/29/2016 Seborrheic dermatitis, unspecified 06/12/2007 08/29/2016 Unspecified adjustment reaction 12/19/2006 07/14/2007 documented as of this encounter (statuses as of 08/08/2021) [facility] History of Past illness Narrative* Problem Noted Date Resolved Date Iron deficiency 08/29/2016 12/04/2019 UTI (urinary tract infection) in , ante 02/16/2016 02/16/2016 Urgency of urination 01/19/2016 08/29/2016 Frequency of micturition 01/19/2016 017 Trichomonal vaginitis during in second trimester 11/28/2015 08/29/2016 Overview: November 28, 2015 positive trich was negative a month ago, informed patient of STD and she and and any partners need treated. Consider additional STD testing at next visit and Recommend retesting in 6 weeks Lian Queen MD January 03, 2016 Still + trich treat 2000mg flagyl daily x 7 days. Carlie Campbell MD 02/13/16 Still pos trich. Rx tinizadole. Kimberly Nova, JESICA March 13, 2016 Neg. trich. Carlie Campbell MD History of gastric bypass 09/08/20152019 History of delivery, currently 09/08/2015 05/07/2016 Overview: 09/08/2015 Pt had a previous C section by Dr Zamarripa. She is considering a vs repeat C section by Dr Campbell.TKRN 09/08/2015W C section report states CPD and failure to progress as reason for C Section.TKRN September 15, 2015 Patient not interested in TOLAC, desires repeat c/s. Carlie Campbell MD January 30, 2016 Desires repeat c/s and tubal. R/B/A to sterilization reviewed, title 19 signed. Carlie Campbell MD Tobacco use in 09/08/2015 017 Overview: 09/08/2015Pt smokes 1/2 pack a day of cigarettes. Discussed risks of smoking during . Advised pt to quit.TKRN H/O macrosomia in infant in prior , currently 09/08/2015 08/29/2016 Overview: 09/08/2015 Pt's previous lavell birthweight was 9#14oz. TKRN Patient requested diagnostic testing 09/08/2015 11/21/2015 Overview: 09/08/2015Pt desires nuchal ultrasound with sequential testing. TKRN History of kidney stones 09/08/2015 016 Marijuana abuse 04/27/2015 08/29/2016 Recurrent UTI (urinary tract infection) complicating 07/22/2014 08/29/2016 Overview: November 28, 2015 Recommend daily antibiotic Lian Queen MD November 21, 2015 Klebsiella UTI and treated with septra. Rpt urine culture 4 weeks. Kimberly Nova CNP January 03, 2016 Consider doing cath specimens for her as suspect low colony counts may be contamination. Carlie Campbell MD Kidney stones 07/22/2014 09/13/2015 Thrombosed external hemorrhoid 08/14/2013 0 09/13/2015 Routine general medical exam ination at a health care facility 06/30/2009 09/13/2015 Overview: 06/30/2009, from Dr. Guerra Routine gynecological examination 06/30/2009 09/13/2015 Overview: [facility] [place] Morbid obesity 06/30/2009 09/13/2015 Insomnia 06/30/2009 09/13/2015 Attention deficit disorder 07/14/200708/29 Overview: Controlled substance agreement-03/19/2015 Adjustment disorder with depressed mood 07/14/19 08 08/29/2016 Seborrheic dermatitis, unspecified 06/12/2007 08/29/2016 Unspecified adjustment reaction 12/19/2006 07/14/2007 documented as of this encounter (statuses as of 08/29/2021) [facility] History of Past illness Narrative* Problem Noted Date Resolved Date Iron deficiency 08/29/2016 12/04/2019 UTI (urinary tract infection) in , ante 02/16/2016 02/16/2016 Urgency of urination 01/19/2016 08/29/2016 Frequency of micturition 01/19/2016 017 Trichomonal vaginitis during in second trimester 11/28/2015 08/29/2016 Overview: November 28, 2015 positive trich was negative a month ago, informed patient of STD and she and and any partners need treated. Consider additional STD testing at next visit and Recommend retesting in 6 weeks Lian Queen MD January 03, 2016 Still + trich treat 2000mg flagyl daily x 7 days. Carlie Campbell MD 02/13/16 Still pos trich. Rx tinizadole. Kimberly Nova CNP March 13, 2016 Neg. trich. Carlie Campbell MD History of gastric bypass 09/08/20152019 History of delivery, currently 09/08/2015 05/07/2016 Overview: 09/08/2015 Pt had a previous C section by Dr Zamarripa. She is considering a vs repeat C section by Dr Campbell.TKRN 09/08/2015W C section report states CPD and failure to progress as reason for C Section.TKRN September 15, 2015 Patient not interested in TOLAC, desires repeat c/s. Carlie Campbell MD January 30, 2016 Desires repeat c/s and tubal. R/B/A to sterilization reviewed, title 19 signed. Carlie Campbell MD Tobacco use in 09/08/2015 017 Overview: 09/08/2015Pt smokes 1/2 pack a day of cigarettes. Discussed risks of smoking during . Advised pt to quit.TKRN H/O macrosomia in in prior , currently 09/08/2015 08/29/2016 Overview: 09/08/2015 Pt's previous lavell birthweight was 9#14oz. TKRN Patient requested diagnostic testing 09/08/2015 11/21/2015 Overview: 09/08/2015Pt desires nuchal ultrasound with sequential testing. TKRN History of kidney stones 09/08/2015 016 Marijuana abuse 04/27/2015 08/29/2016 Recurrent UTI (urinary tract infection) complicating 07/22/2014 08/29/2016 Overview: November 28, 2015 Recommend daily antibiotic Lian Queen MD November 21, 2015 Klebsiella UTI and treated with septra. Rpt urine culture 4 weeks. Kimberly Nova CNP January 03, 2016 Consider doing cath specimens for her as suspect low colony counts may be contamination. Carlie Campbell MD Kidney stones 07/22/2014 09/13/2015 Thrombosed external hemorrhoid 08/14/2013 0 09/13/2015 Routine general medical exam ination at a health care facility 06/30/2009 09/13/2015 Overview: 06/30/2009, from Dr. Guerar Routine gynecological examination 06/30/2009 09/13/2015 Overview: [facility], [facility] [place] Morbid obesity 06/30/2009 09/13/2015 Insomnia 06/30/2009 09/13/2015 Attention deficit disorder 07/14/200708/29 Overview: Controlled substance agreement-03/19/2015 Adjustment disorder with depressed mood 07/14/19 08 08/29/2016 Seborrheic dermatitis, unspecified 06/12/2007 08/29/2016 Unspecified adjustment reaction 12/19/2006 07/14/2007 documented as of this encounter (statuses as of 09/08/2021) [facility] History of Past illness Narrative* Problem Noted Date Resolved Date Iron deficiency 08/29/2016 12/04/2019 UTI (urinary tract infection) in , ante 02/16/2016 02/16/2016 Urgency of urination 01/19/2016 08/29/2016 Frequency of micturition 01/19/2016 017 Trichomonal vaginitis during in second trimester 11/28/2015 08/29/2016 Overview: November 28, 2015 positive trich was negative a month ago, informed patient of STD and she and and any partners need treated. Consider additional STD testing at next visit and Recommend retesting in 6 weeks Lian Queen MD January 03, 2016 Still + trich treat 2000mg flagyl daily x 7 days. Carlie Campbell MD 02/13/16 Still pos trich. Rx tinizadole. Kimberly Nova, CERTIFIED CODING SPECIALIST March 13, 2016 Neg. trich. Carlie Campbell MD History of gastric bypass 09/08/20152019 History of delivery, currently 09/08/2015 05/07/2016 Overview: 09/08/2015 Pt had a previous C section by Dr Zamarripa. She is considering a vs repeat C section by Dr Campbell.TKRN 09/08/2015W C section report states CPD and failure to progress as reason for C Section.TKRN September 15, 2015 Patient not interested in TOLAC, desires repeat c/s. Carlie Campbell MD January 30, 2016 Desires repeat c/s and tubal. R/B/A to sterilization reviewed, title 19 signed. Carlie Campbell MD Tobacco use in 09/08/2015 017 Overview: 09/08/2015Pt smokes 1/2 pack a day of cigarettes. Discussed risks of smoking during . Advised pt to quit.TKRN H/O macrosomia in in prior , currently 09/08/2015 08/29/2016 Overview: 09/08/2015 Pt's previous lavell birthweight was 9#14oz. TKRN Patient requested diagnostic testing 09/08/2015 11/21/2015 Overview: 09/08/2015Pt desires nuchal ultrasound with sequential testing. TKRN History of kidney stones 09/08/2015 016 Marijuana abuse 04/27/2015 08/29/2016 Recurrent UTI (urinary tract infection) complicating 07/22/2014 08/29/2016 Overview: November 28, 2015 Recommend daily antibiotic Lian Queen MD November 21, 2015 Klebsiella UTI and treated with septra. Rpt urine culture 4 weeks. Kimberly Nova CNP January 03, 2016 Consider doing cath specimens for her as suspect low colony counts may be contamination. Carlie Campbell MD Kidney stones 07/22/2014 09/13/2015 Thrombosed external hemorrhoid 08/14/2013 0 09/13/2015 Routine general medical exam ination at a health care facility 06/30/2009 09/13/2015 Overview: 06/30/2009, from Dr. Guerra Routine gynecological examination 06/30/2009 09/13/2015 Overview: [facility] [place] Morbid obesity 06/30/2009 09/13/2015 Insomnia 06/30/2009 09/13/2015 Attention deficit disorder 07/14/200708/29 Overview: Controlled substance agreement-03/19/2015 Adjustment disorder with depressed mood 07/14/1908/29/2016 Seborrheic dermatitis, unspecified 06/12/2007 08/29/2016 Unspecified adjustment reaction 12/19/2006 07/14/2007 documented as of this encounter (statuses as of 10/04/2021) [facility]05-[facility]-2017 History of Past illness Narrative* Problem Noted Date Resolved Date Iron deficiency 08/29/2016 12/04/2019 UTI (urinary tract infection) in , ante 02/16/2016 02/16/2016 Urgency of urination 01/19/2016 08/29/2016 Frequency of micturition 01/19/2016 017 Trichomonal vaginitis during in second trimester 11/28/2015 08/29/2016 Overview: November 28, 2015 positive trich was negative a month ago, informed patient of STD and she and and any partners need treated. Consider additional STD testing at next visit and Recommend retesting in 6 weeks Lian Queen MD January 03, 2016 Still + trich treat 2000mg flagyl daily x 7 days. Carlie Campbell MD 02/13/16 Still pos trich. Rx tinizadole. Kimberly Nova, JESICA March 13, 2016 Neg. trich. Carlie Campbell MD History of gastric bypass 09/08/20152019 History of delivery, currently 09/08/2015 05/07/2016 Overview: 09/08/2015 Pt had a previous C section by Dr Zamarripa. She is considering a vs repeat C section by Dr Campbell.TKRN 09/08/2015W C section report states CPD and failure to progress as reason for C Section.TKRN September 15, 2015 Patient not interested in TOLAC, desires repeat c/s. Carlie Campbell MD January 30, 2016 Desires repeat c/s and tubal. R/B/A to sterilization reviewed, title 19 signed. Carlie Campbell MD Tobacco use in 09/08/2015 017 Overview: 09/08/2015Pt smokes 1/2 pack a day of cigarettes. Discussed risks of smoking during . Advised pt to quit.TKRN H/O macrosomia in in prior , currently 09/08/2015 08/29/2016 Overview: 09/08/2015 Pt's previous lavell birthweight was 9#14oz. TKRN Patient requested diagnostic testing 09/08/2015 11/21/2015 Overview: 09/08/2015Pt desires nuchal ultrasound with sequential testing. TKRN History of kidney stones 09/08/2015 016 Marijuana abuse 04/27/2015 08/29/2016 Recurrent UTI (urinary tract infection) complicating 07/22/2014 08/29/2016 Overview: November 28, 2015 Recommend daily antibiotic Lian Queen MD November 21, 2015 Klebsiella UTI and treated with septra. Rpt urine culture 4 weeks. Kimberly Nova CNP January 03, 2016 Consider doing cath specimens for her as suspect low colony counts may be contamination. Carlie Campbell MD Kidney stones 07/22/2014 09/13/2015 Thrombosed external hemorrhoid 08/14/2013 0 09/13/2015 Routine general medical exam ination at a health care facility 06/30/2009 09/13/2015 Overview: 06/30/2009, from Dr. Guerra Routine gynecological examination 06/30/2009 09/13/2015 Overview: [facility] [place] Morbid obesity 06/30/2009 09/13/2015 Insomnia 06/30/2009 09/13/2015 Attention deficit disorder 07/14/200708/29 Overview: Controlled substance agreement-03/19/2015 Adjustment disorder with depressed mood 07/14/19 08 08/29/2016 Seborrheic dermatitis, unspecified 06/12/2007 08/29/2016 Unspecified adjustment reaction 12/19/2006 07/14/2007 documented as of this encounter (statuses as of 10/04/2021) [facility] History of Past illness Narrative* Problem Noted Date Resolved Date Iron deficiency 08/29/2016 12/04/2019 UTI (urinary tract infection) in , ante 02/16/2016 02/16/2016 Urgency of urination 01/19/2016 08/29/2016 Frequency of micturition 01/19/2016 017 Trichomonal vaginitis during in second trimester 11/28/2015 08/29/2016 Overview: November 28, 2015 positive trich was negative a month ago, informed patient of STD and she and and any partners need treated. Consider additional STD testing at next visit and Recommend retesting in 6 weeks Lian Queen MD January 03, 2016 Still + trich treat 2000mg flagyl daily x 7 days. Carlie Campbell MD 02/13/16 Still pos trich. Rx tinizadole. Kimberly Nova, CERTIFIED CODING SPECIALIST March 13, 2016 Neg. trich. Carlie Campbell MD History of gastric bypass 09/08/20152019 History of delivery, currently 09/08/2015 05/07/2016 Overview: 09/08/2015 Pt had a previous C section by Dr Zamarripa. She is considering a vs repeat C section by Dr Campbell.TKRN 09/08/2015W C section report states CPD and failure to progress as reason for C Section.TKRN September 15, 2015 Patient not interested in TOLAC, desires repeat c/s. Carlie Campbell MD January 30, 2016 Desires repeat c/s and tubal. R/B/A to sterilization reviewed, title 19 signed. Carlie Campbell MD Tobacco use in 09/08/2015 017 Overview: 09/08/2015Pt smokes 1/2 pack a day of cigarettes. Discussed risks of smoking during . Advised pt to quit.TKRN H/O macrosomia in infant in prior , currently 09/08/2015 08/29/2016 Overview: 09/08/2015 Pt's previous lavell birthweight was 9#14oz. TKRN Patient requested diagnostic testing 09/08/2015 11/21/2015 Overview: 09/08/2015Pt desires nuchal ultrasound with sequential testing. TKRN History of kidney stones 09/08/2015 016 Marijuana abuse 04/27/2015 08/29/2016 Recurrent UTI (urinary tract infection) complicating 07/22/2014 08/29/2016 Overview: November 28, 2015 Recommend daily antibiotic Lian Queen MD November 21, 2015 Klebsiella UTI and treated with septra. Rpt urine culture 4 weeks. Kimberly Nova CNP January 03, 2016 Consider doing cath specimens for her as suspect low colony counts may be contamination. Carlie Campbell MD Kidney stones 07/22/2014 09/13/2015 Thrombosed external hemorrhoid 08/14/2013 0 09/13/2015 Routine general medical exam ination at a health care facility 06/30/2009 09/13/2015 Overview: 06/30/2009, from Dr. Guerra Routine gynecological examination 06/30/2009 09/13/2015 Overview: [facility] [place] Morbid obesity 06/30/2009 09/13/2015 Insomnia 06/30/2009 09/13/2015 Attention deficit disorder 07/14/200708/29 Overview: Controlled substance agreement-03/19/2015 Adjustment disorder with depressed mood 07/14/1908/29/2016 Seborrheic dermatitis, unspecified 06/12/2007 08/29/2016 Unspecified adjustment reaction 12/19/2006 07/14/2007 documented as of this encounter (statuses as of 10/06/2021) [facility] History of Past illness Narrative* Problem Noted Date Resolved Date Iron deficiency 08/29/2016 12/04/2019 UTI (urinary tract infection) in , ante 02/16/2016 02/16/2016 Urgency of urination 01/19/2016 08/29/2016 Frequency of micturition 01/19/2016 017 Trichomonal vaginitis during in second trimester 11/28/2015 08/29/2016 Overview: November 28, 2015 positive trich was negative a month ago, informed patient of STD and she and and any partners need treated. Consider additional STD testing at next visit and Recommend retesting in 6 weeks Lian Queen MD January 03, 2016 Still + trich treat 2000mg flagyl daily x 7 days. Carlie Campbell MD 02/13/16 Still pos trich. Rx tinizadole. Kimberly Nova, JESICA March 13, 2016 Neg. trich. Carlie Campbell MD History of gastric bypass 09/08/20152019 History of delivery, currently 09/08/2015 05/07/2016 Overview: 09/08/2015 Pt had a previous C section by Dr Zamarripa. She is considering a vs repeat C section by Dr Campbell.TKRN 09/08/2015[facility] C section report states CPD and failure to progress as reason for C Section.TKRN September 15, 2015 Patient not interested in TOLAC, desires repeat c/s. Carlie Campbell MD January 30, 2016 Desires repeat c/s and tubal. R/B/A to sterilization reviewed, title 19 signed. Carlie Campbell MD Tobacco use in 09/08/2015 017 Overview: 09/08/2015Pt smokes 1/2 pack a day of cigarettes. Discussed risks of smoking during . Advised pt to quit.TKRN H/O macrosomia in infant in prior , currently 09/08/2015 08/29/2016 Overview: 09/08/2015 Pt's previous lavell birthweight was 9#14oz. TKRN Patient requested diagnostic testing 09/08/2015 11/21/2015 Overview: 09/08/2015Pt desires nuchal ultrasound with sequential testing. TKRN History of kidney stones 09/08/2015 016 Marijuana abuse 04/27/2015 08/29/2016 Recurrent UTI (urinary tract infection) complicating 07/22/2014 08/29/2016 Overview: November 28, 2015 Recommend daily antibiotic Lian Queen MD November 21, 2015 Klebsiella UTI and treated with septra. Rpt urine culture 4 weeks. Kimberly JESICA Nova January 03, 2016 Consider doing cath specimens for her as suspect low colony counts may be contamination. Carlie Campbell MD Kidney stones 07/22/2014 09/13/2015 Thrombosed external hemorrhoid 08/14/2013 0 09/13/2015 Routine general medical exam ination at a health care facility 06/30/2009 09/13/2015 Overview: 06/30/2009, from Dr. Guerra Routine gynecological examination 06/30/2009 09/13/2015 Overview: [facility] [place] Morbid obesity 06/30/2009 09/13/2015 Insomnia 06/30/2009 09/13/2015 Attention deficit disorder 07/14/200708/29 Overview: Controlled substance agreement-03/19/2015 Adjustment disorder with depressed mood 07/14/19 08 08/29/2016 Seborrheic dermatitis, unspecified 06/12/2007 08/29/2016 Unspecified adjustment reaction 12/19/2006 07/14/2007 documented as of this encounter (statuses as of 10/06/2021) [facility] History of Past illness Narrative* Problem Noted Date Resolved Date Iron deficiency 08/29/2016 12/04/2019 UTI (urinary tract infection) in , ante 02/16/2016 02/16/2016 Urgency of urination 01/19/2016 08/29/2016 Frequency of micturition 01/19/2016 017 Trichomonal vaginitis during in second trimester 11/28/2015 08/29/2016 Overview: November 28, 2015 positive trich was negative a month ago, informed patient of STD and she and and any partners need treated. Consider additional STD testing at next visit and Recommend retesting in 6 weeks Lian Queen MD January 03, 2016 Still + trich treat 2000mg flagyl daily x 7 days. Carlie Campbell MD 02/13/16 Still pos trich. Rx tinizadole. Kimberly Nova, JESICA March 13, 2016 Neg. trich. Carlie Campbell MD History of gastric bypass 09/08/20152019 History of delivery, currently 09/08/2015 05/07/2016 Overview: 09/08/2015 Pt had a previous C section by Dr Zamarripa. She is considering a vs repeat C section by Dr Campbell.TKRN 09/08/2015W C section report states CPD and failure to progress as reason for C Section.TKRN September 15, 2015 Patient not interested in TOLAC, desires repeat c/s. Carlie Campbell MD January 30, 2016 Desires repeat c/s and tubal. R/B/A to sterilization reviewed, title 19 signed. Carlie Campbell MD Tobacco use in 09/08/2015 017 Overview: 09/08/2015Pt smokes 1/2 pack a day of cigarettes. Discussed risks of smoking during . Advised pt to quit.TKRN H/O macrosomia in infant in prior , currently 09/08/2015 08/29/2016 Overview: 09/08/2015 Pt's previous lavell birthweight was 9#14oz. TKRN Patient requested diagnostic testing 09/08/2015 11/21/2015 Overview: 09/08/2015Pt desires nuchal ultrasound with sequential testing. TKRN History of kidney stones 09/08/2015 016 Marijuana abuse 04/27/2015 08/29/2016 Recurrent UTI (urinary tract infection) complicating 07/22/2014 08/29/2016 Overview: November 28, 2015 Recommend daily antibiotic Lian Queen MD November 21, 2015 Klebsiella UTI and treated with septra. Rpt urine culture 4 weeks. Kimberly Nova CNP January 03, 2016 Consider doing cath specimens for her as suspect low colony counts may be contamination. Carlie Campbell MD Kidney stones 07/22/2014 09/13/2015 Thrombosed external hemorrhoid 08/14/2013 0 09/13/2015 Routine general medical exam ination at a health care facility 06/30/2009 09/13/2015 Overview: 06/30/2009, from Dr. Guerra Routine gynecological examination 06/30/2009 09/13/2015 Overview: [facility], [facility] [place] Morbid obesity 06/30/2009 09/13/2015 Insomnia 06/30/2009 09/13/2015 Attention deficit disorder 07/14/200708/29 Overview: Controlled substance agreement-03/19/2015 Adjustment disorder with depressed mood 07/14/19 08 08/29/2016 Seborrheic dermatitis, unspecified 06/12/2007 08/29/2016 Unspecified adjustment reaction 12/19/2006 07/14/2007 documented as of this encounter (statuses as of 10/10/2021) [facility] History of Past illness Narrative* Problem Noted Date Resolved Date Iron deficiency 08/29/2016 12/04/2019 UTI (urinary tract infection) in , ante 02/16/2016 02/16/2016 Urgency of urination 01/19/2016 08/29/2016 Frequency of micturition 01/19/2016 017 Trichomonal vaginitis during in second trimester 11/28/2015 08/29/2016 Overview: November 28, 2015 positive trich was negative a month ago, informed patient of STD and she and and any partners need treated. Consider additional STD testing at next visit and Recommend retesting in 6 weeks Lian Queen MD January 03, 2016 Still + trich treat 2000mg flagyl daily x 7 days. Carlie Campbell MD 02/13/16 Still pos trich. Rx tinizadole. Kimberly Nova CNP March 13, 2016 Neg. trich. Carlie Campbell MD History of gastric bypass 09/08/20152019 History of delivery, currently 09/08/2015 05/07/2016 Overview: 09/08/2015 Pt had a previous C section by Dr Zamarripa. She is considering a vs repeat C section by Dr Campbell.TKRN 09/08/2015W C section report states CPD and failure to progress as reason for C Section.TKRN September 15, 2015 Patient not interested in TOLAC, desires repeat c/s. Carlie Campbell MD January 30, 2016 Desires repeat c/s and tubal. R/B/A to sterilization reviewed, title 19 signed. Carlie Campbell MD Tobacco use in 09/08/2015 017 Overview: 09/08/2015Pt smokes 1/2 pack a day of cigarettes. Discussed risks of smoking during . Advised pt to quit.TKRN H/O macrosomia in in prior , currently 09/08/2015 08/29/2016 Overview: 09/08/2015 Pt's previous lavell birthweight was 9#14oz. TKRN Patient requested diagnostic testing 09/08/2015 11/21/2015 Overview: 09/08/2015Pt desires nuchal ultrasound with sequential testing. TKRN History of kidney stones 09/08/2015 016 Marijuana abuse 04/27/2015 08/29/2016 Recurrent UTI (urinary tract infection) complicating 07/22/2014 08/29/2016 Overview: November 28, 2015 Recommend daily antibiotic Lian Queen MD November 21, 2015 Klebsiella UTI and treated with septra. Rpt urine culture 4 weeks. Kimberly Nova CNP January 03, 2016 Consider doing cath specimens for her as suspect low colony counts may be contamination. Carlie Campbell MD Kidney stones 07/22/2014 09/13/2015 Thrombosed external hemorrhoid 08/14/2013 0 09/13/2015 Routine general medical exam ination at a health care facility 06/30/2009 09/13/2015 Overview: 06/30/2009, from Dr. Guerra Routine gynecological examination 06/30/2009 09/13/2015 Overview: [facility] [place] Morbid obesity 06/30/2009 09/13/2015 Insomnia 06/30/2009 09/13/2015 Attention deficit disorder 07/14/200708/29 Overview: Controlled substance agreement-03/19/2015 Adjustment disorder with depressed mood 07/14/19 08 08/29/2016 Seborrheic dermatitis, unspecified 06/12/2007 08/29/2016 Unspecified adjustment reaction 12/19/2006 07/14/2007 documented as of this encounter (statuses as of 10/17/2021) [facility] History of Past illness Narrative* Problem Noted Date Resolved Date Iron deficiency 08/29/2016 12/04/2019 UTI (urinary tract infection) in , ante 02/16/2016 02/16/2016 Urgency of urination 01/19/2016 08/29/2016 Frequency of micturition 01/19/2016 017 Trichomonal vaginitis during in second trimester 11/28/2015 08/29/2016 Overview: November 28, 2015 positive trich was negative a month ago, informed patient of STD and she and and any partners need treated. Consider additional STD testing at next visit and Recommend retesting in 6 weeks Lian Queen MD January 03, 2016 Still + trich treat 2000mg flagyl daily x 7 days. Carlie Campbell MD 02/13/16 Still pos trich. Rx tinizadole. Kimberly Nova, CERTIFIED CODING SPECIALIST March 13, 2016 Neg. trich. Carlie Campbell MD History of gastric bypass 09/08/20152019 History of delivery, currently 09/08/2015 05/07/2016 Overview: 09/08/2015 Pt had a previous C section by Dr Zamraripa. She is considering a vs repeat C section by Dr Campbell.TKRN 09/08/2015W C section report states CPD and failure to progress as reason for C Section.TKRN September 15, 2015 Patient not interested in TOLAC, desires repeat c/s. Carlie Campbell MD January 30, 2016 Desires repeat c/s and tubal. R/B/A to sterilization reviewed, title 19 signed. Carlie Campbell MD Tobacco use in 09/08/2015 017 Overview: 09/08/2015Pt smokes 1/2 pack a day of cigarettes. Discussed risks of smoking during . Advised pt to quit.TKRN H/O macrosomia in infant in prior , currently 09/08/2015 08/29/2016 Overview: 09/08/2015 Pt's previous lavell birthweight was 9#14oz. TKRN Patient requested diagnostic testing 09/08/2015 11/21/2015 Overview: 09/08/2015Pt desires nuchal ultrasound with sequential testing. TKRN History of kidney stones 09/08/2015 016 Marijuana abuse 04/27/2015 08/29/2016 Recurrent UTI (urinary tract infection) complicating 07/22/2014 08/29/2016 Overview: November 28, 2015 Recommend daily antibiotic Lian Queen MD November 21, 2015 Klebsiella UTI and treated with septra. Rpt urine culture 4 weeks. Kimberly Nova CNP January 03, 2016 Consider doing cath specimens for her as suspect low colony counts may be contamination. Carlie Campbell MD Kidney stones 07/22/2014 09/13/2015 Thrombosed external hemorrhoid 08/14/2013 0 09/13/2015 Routine general medical exam ination at a health care facility 06/30/2009 09/13/2015 Overview: 06/30/2009, from Dr. Guerra Routine gynecological examination 06/30/2009 09/13/2015 Overview: [facility] [place] Morbid obesity 06/30/2009 09/13/2015 Insomnia 06/30/2009 09/13/2015 Attention deficit disorder 07/14/200708/29 Overview: Controlled substance agreement-03/19/2015 Adjustment disorder with depressed mood 07/14/19 08 08/29/2016 Seborrheic dermatitis, unspecified 06/12/2007 08/29/2016 Unspecified adjustment reaction 12/19/2006 07/14/2007 documented as of this encounter (statuses as of 11/08/2021) [facility] History of Past illness Narrative* Problem Noted Date Resolved Date Iron deficiency 08/29/2016 12/04/2019 UTI (urinary tract infection) in , ante 02/16/2016 02/16/2016 Urgency of urination 01/19/2016 08/29/2016 Frequency of micturition 01/19/2016 017 Trichomonal vaginitis during in second trimester 11/28/2015 08/29/2016 Overview: November 28, 2015 positive trich was negative a month ago, informed patient of STD and she and and any partners need treated. Consider additional STD testing at next visit and Recommend retesting in 6 weeks Lian Queen MD January 03, 2016 Still + trich treat 2000mg flagyl daily x 7 days. Carlie Campbell MD 02/13/16 Still pos trich. Rx tinizadole. Kimberly Nova, JESICA March 13, 2016 Neg. trich. Carlie Campbell MD History of gastric bypass 09/08/20152019 History of delivery, currently 09/08/2015 05/07/2016 Overview: 09/08/2015 Pt had a previous C section by Dr Zamarripa. She is considering a vs repeat C section by Dr Campbell.TKRN 09/08/2015[facility] C section report states CPD and failure to progress as reason for C Section.TKRN September 15, 2015 Patient not interested in TOLAC, desires repeat c/s. Carlie Campbell MD January 30, 2016 Desires repeat c/s and tubal. R/B/A to sterilization reviewed, title 19 signed. Carlie Campbell MD Tobacco use in 09/08/2015 017 Overview: 09/08/2015Pt smokes 1/2 pack a day of cigarettes. Discussed risks of smoking during . Advised pt to quit.TKRN H/O macrosomia in in prior , currently 09/08/2015 08/29/2016 Overview: 09/08/2015 Pt's previous lavell birthweight was 9#14oz. TKRN Patient requested diagnostic testing 09/08/2015 11/21/2015 Overview: 09/08/2015Pt desires nuchal ultrasound with sequential testing. TKRN History of kidney stones 09/08/2015 016 Marijuana abuse 04/27/2015 08/29/2016 Recurrent UTI (urinary tract infection) complicating 07/22/2014 08/29/2016 Overview: November 28, 2015 Recommend daily antibiotic Lian Queen MD November 21, 2015 Klebsiella UTI and treated with septra. Rpt urine culture 4 weeks. Kimberly Nova CNP January 03, 2016 Consider doing cath specimens for her as suspect low colony counts may be contamination. Carlie Campbell MD Kidney stones 07/22/2014 09/13/2015 Thrombosed external hemorrhoid 08/14/2013 0 09/13/2015 Routine general medical exam ination at a health care facility 06/30/2009 09/13/2015 Overview: 06/30/2009, from Dr. Guerra Routine gynecological examination 06/30/2009 09/13/2015 Overview: [facility] [place] Morbid obesity 06/30/2009 09/13/2015 Insomnia 06/30/2009 09/13/2015 Attention deficit disorder 07/14/200708/29 Overview: Controlled substance agreement-03/19/2015 Adjustment disorder with depressed mood 07/14/19 08 08/29/2016 Seborrheic dermatitis, unspecified 06/12/2007 08/29/2016 Unspecified adjustment reaction 12/19/2006 07/14/2007 documented as of this encounter (statuses as of 12/06/2021) [facility] History of Past illness Narrative* Problem Noted Date Resolved Date Iron deficiency 08/29/2016 12/04/2019 UTI (urinary tract infection) in , ante 02/16/2016 02/16/2016 Urgency of urination 01/19/2016 08/29/2016 Frequency of micturition 01/19/2016 017 Trichomonal vaginitis during in second trimester 11/28/2015 08/29/2016 Overview: November 28, 2015 positive trich was negative a month ago, informed patient of STD and she and and any partners need treated. Consider additional STD testing at next visit and Recommend retesting in 6 weeks Lian Queen MD January 03, 2016 Still + trich treat 2000mg flagyl daily x 7 days. Carlie Campbell MD 02/13/16 Still pos trich. Rx tinizadole. Kimberly Nova, JESICA March 13, 2016 Neg. trich. Carlie Campbell MD History of gastric bypass 09/08/20152019 History of delivery, currently 09/08/2015 05/07/2016 Overview: 09/08/2015 Pt had a previous C section by Dr Zamarripa. She is considering a vs repeat C section by Dr Campbell.TKRN 09/08/2015W C section report states CPD and failure to progress as reason for C Section.TKRN September 15, 2015 Patient not interested in TOLAC, desires repeat c/s. Carlie Campbell MD January 30, 2016 Desires repeat c/s and tubal. R/B/A to sterilization reviewed, title 19 signed. Carlie Campbell MD Tobacco use in 09/08/2015 017 Overview: 09/08/2015Pt smokes 1/2 pack a day of cigarettes. Discussed risks of smoking during . Advised pt to quit.TKRN H/O macrosomia in infant in prior , currently 09/08/2015 08/29/2016 Overview: 09/08/2015 Pt's previous lavell birthweight was 9#14oz. TKRN Patient requested diagnostic testing 09/08/2015 11/21/2015 Overview: 09/08/2015Pt desires nuchal ultrasound with sequential testing. TKRN History of kidney stones 09/08/2015 016 Marijuana abuse 04/27/2015 08/29/2016 Recurrent UTI (urinary tract infection) complicating 07/22/2014 08/29/2016 Overview: November 28, 2015 Recommend daily antibiotic Lian Queen MD November 21, 2015 Klebsiella UTI and treated with septra. Rpt urine culture 4 weeks. Kimberly Nova CNP January 03, 2016 Consider doing cath specimens for her as suspect low colony counts may be contamination. Carlie Campbell MD Kidney stones 07/22/2014 09/13/2015 Thrombosed external hemorrhoid 08/14/2013 0 09/13/2015 Routine general medical exam ination at a health care facility 06/30/2009 09/13/2015 Overview: 06/30/2009, from Dr. Guerra Routine gynecological examination 06/30/2009 09/13/2015 Overview: [facility] [place] Morbid obesity 06/30/2009 09/13/2015 Insomnia 06/30/2009 09/13/2015 Attention deficit disorder 07/14/200708/29 Overview: Controlled substance agreement-03/19/2015 Adjustment disorder with depressed mood 07/14/19 08 08/29/2016 Seborrheic dermatitis, unspecified 06/12/2007 08/29/2016 Unspecified adjustment reaction 12/19/2006 07/14/2007 documented as of this encounter (statuses as of 12/08/2021) [facility]05-[facility]2017 History of Past illness Narrative* Problem Noted Date Resolved Date Iron deficiency 08/29/2016 12/04/2019 UTI (urinary tract infection) in , ante 02/16/2016 02/16/2016 Urgency of urination 01/19/2016 08/29/2016 Frequency of micturition 01/19/2016 017 Trichomonal vaginitis during in second trimester 11/28/2015 08/29/2016 Overview: November 28, 2015 positive trich was negative a month ago, informed patient of STD and she and and any partners need treated. Consider additional STD testing at next visit and Recommend retesting in 6 weeks Lian Queen MD January 03, 2016 Still + trich treat 2000mg flagyl daily x 7 days. Carlie Campbell MD 02/13/16 Still pos trich. Rx tinizadole. Kimberly Nova, JESICA March 13, 2016 Neg. trich. Carlie Campbell MD History of gastric bypass 09/08/20152019 History of delivery, currently 09/08/2015 05/07/2016 Overview: 09/08/2015 Pt had a previous C section by Dr Zamarripa. She is considering a vs repeat C section by Dr Campbell.TKRN 09/08/2015W C section report states CPD and failure to progress as reason for C Section.TKRN September 15, 2015 Patient not interested in TOLAC, desires repeat c/s. Carlie Campbell MD January 30, 2016 Desires repeat c/s and tubal. R/B/A to sterilization reviewed, title 19 signed. Carlie Campbell MD Tobacco use in 09/08/2015 017 Overview: 09/08/2015Pt smokes 1/2 pack a day of cigarettes. Discussed risks of smoking during . Advised pt to quit.TKRN H/O macrosomia in in prior , currently 09/08/2015 08/29/2016 Overview: 09/08/2015 Pt's previous lavell birthweight was 9#14oz. TKRN Patient requested diagnostic testing 09/08/2015 11/21/2015 Overview: 09/08/2015Pt desires nuchal ultrasound with sequential testing. TKRN History of kidney stones 09/08/2015 016 Marijuana abuse 04/27/2015 08/29/2016 Recurrent UTI (urinary tract infection) complicating 07/22/2014 08/29/2016 Overview: November 28, 2015 Recommend daily antibiotic Lian Queen MD November 21, 2015 Klebsiella UTI and treated with septra. Rpt urine culture 4 weeks. Kimberly Nova CNP January 03, 2016 Consider doing cath specimens for her as suspect low colony counts may be contamination. Carlie Campbell MD Kidney stones 07/22/2014 09/13/2015 Thrombosed external hemorrhoid 08/14/2013 0 09/13/2015 Routine general medical exam ination at a health care facility 06/30/2009 09/13/2015 Overview: 06/30/2009, from Dr. Guerra Routine gynecological examination 06/30/2009 09/13/2015 Overview: [facility], [facility] [place] Morbid obesity 06/30/2009 09/13/2015 Insomnia 06/30/2009 09/13/2015 Attention deficit disorder 07/14/200708/29 Overview: Controlled substance agreement-03/19/2015 Adjustment disorder with depressed mood 07/14/19 08 08/29/2016 Seborrheic dermatitis, unspecified 06/12/2007 08/29/2016 Unspecified adjustment reaction 12/19/2006 07/14/2007 documented as of this encounter (statuses as of 2021) [facility] History of Past illness Narrative* Problem Noted Date Resolved Date Iron deficiency 08/29/2016 12/04/2019 UTI (urinary tract infection) in , ante 02/16/2016 02/16/2016 Urgency of urination 01/19/2016 08/29/2016 Frequency of micturition 01/19/2016 017 Trichomonal vaginitis during in second trimester 11/28/2015 08/29/2016 Overview: November 28, 2015 positive trich was negative a month ago, informed patient of STD and she and and any partners need treated. Consider additional STD testing at next visit and Recommend retesting in 6 weeks Lian Queen MD January 03, 2016 Still + trich treat 2000mg flagyl daily x 7 days. Carlie Campbell MD 02/13/16 Still pos trich. Rx tinizadole. Kimberly Nova, JESICA March 13, 2016 Neg. trich. Carlie Campbell MD History of gastric bypass 09/08/20152019 History of delivery, currently 09/08/2015 05/07/2016 Overview: 09/08/2015 Pt had a previous C section by Dr Zamarripa. She is considering a vs repeat C section by Dr Campbell.TKRN 09/08/2015W C section report states CPD and failure to progress as reason for C Section.TKRN September 15, 2015 Patient not interested in TOLAC, desires repeat c/s. Carlie Campbell MD January 30, 2016 Desires repeat c/s and tubal. R/B/A to sterilization reviewed, title 19 signed. Carlie Campbell MD Tobacco use in 09/08/2015 017 Overview: 09/08/2015Pt smokes 1/2 pack a day of cigarettes. Discussed risks of smoking during . Advised pt to quit.TKRN H/O macrosomia in in prior , currently 09/08/2015 08/29/2016 Overview: 09/08/2015 Pt's previous lavell birthweight was 9#14oz. TKRN Patient requested diagnostic testing 09/08/2015 11/21/2015 Overview: 09/08/2015Pt desires nuchal ultrasound with sequential testing. TKRN History of kidney stones 09/08/2015 016 Marijuana abuse 04/27/2015 08/29/2016 Recurrent UTI (urinary tract infection) complicating 07/22/2014 08/29/2016 Overview: November 28, 2015 Recommend daily antibiotic Lian Queen MD November 21, 2015 Klebsiella UTI and treated with septra. Rpt urine culture 4 weeks. Kimberly JESICA Nova January 03, 2016 Consider doing cath specimens for her as suspect low colony counts may be contamination. Carlie Campbell MD Kidney stones 07/22/2014 09/13/2015 Thrombosed external hemorrhoid 08/14/2013 0 09/13/2015 Routine general medical exam ination at a health care facility 06/30/2009 09/13/2015 Overview: 06/30/2009, from Dr. Guerra Routine gynecological examination 06/30/2009 09/13/2015 Overview: [facility] [place] Morbid obesity 06/30/2009 09/13/2015 Insomnia 06/30/2009 09/13/2015 Attention deficit disorder 07/14/200708/29 Overview: Controlled substance agreement-03/19/2015 Adjustment disorder with depressed mood 07/14/19 08 08/29/2016 Seborrheic dermatitis, unspecified 06/12/2007 08/29/2016 Unspecified adjustment reaction 12/19/2006 07/14/2007 documented as of this encounter (statuses as of 01/05/2022) [facility] History of Past illness Narrative* Problem Noted Date Resolved Date Iron deficiency 08/29/2016 12/04/2019 UTI (urinary tract infection) in , ante 02/16/2016 02/16/2016 Urgency of urination 01/19/2016 08/29/2016 Frequency of micturition 01/19/2016 017 Trichomonal vaginitis during in second trimester 11/28/2015 08/29/2016 Overview: November 28, 2015 positive trich was negative a month ago, informed patient of STD and she and and any partners need treated. Consider additional STD testing at next visit and Recommend retesting in 6 weeks Lian Queen MD January 03, 2016 Still + trich treat 2000mg flagyl daily x 7 days. Carlie Campbell MD 02/13/16 Still pos trich. Rx tinizadole. Kimberly Nova CNP March 13, 2016 Neg. trich. Carlie Campbell MD History of gastric bypass 09/08/20152019 History of delivery, currently 09/08/2015 05/07/2016 Overview: 09/08/2015 Pt had a previous C section by Dr Zamarripa. She is considering a vs repeat C section by Dr Campbell.TKRN 09/08/2015W C section report states CPD and failure to progress as reason for C Section.TKRN September 15, 2015 Patient not interested in TOLAC, desires repeat c/s. Carlie Campbell MD January 30, 2016 Desires repeat c/s and tubal. R/B/A to sterilization reviewed, title 19 signed. Carlie Campbell MD Tobacco use in 09/08/2015 017 Overview: 09/08/2015Pt smokes 1/2 pack a day of cigarettes. Discussed risks of smoking during . Advised pt to quit.TKRN H/O macrosomia in infant in prior , currently 09/08/2015 08/29/2016 Overview: 09/08/2015 Pt's previous lavell birthweight was 9#14oz. TKRN Patient requested diagnostic testing 09/08/2015 11/21/2015 Overview: 09/08/2015Pt desires nuchal ultrasound with sequential testing. TKRN History of kidney stones 09/08/2015 016 Marijuana abuse 04/27/2015 08/29/2016 Recurrent UTI (urinary tract infection) complicating 07/22/2014 08/29/2016 Overview: November 28, 2015 Recommend daily antibiotic Lian Queen MD November 21, 2015 Klebsiella UTI and treated with septra. Rpt urine culture 4 weeks. Kimberly Nova CNP January 03, 2016 Consider doing cath specimens for her as suspect low colony counts may be contamination. Carlie Campbell MD Kidney stones 07/22/2014 09/13/2015 Thrombosed external hemorrhoid 08/14/2013 0 09/13/2015 Routine general medical exam ination at a health care facility 06/30/2009 09/13/2015 Overview: 06/30/2009, from Dr. Guerra Routine gynecological examination 06/30/2009 09/13/2015 Overview: [facility], [facility] [place] Morbid obesity 06/30/2009 09/13/2015 Insomnia 06/30/2009 09/13/2015 Attention deficit disorder 07/14/200708/29 Overview: Controlled substance agreement-03/19/2015 Adjustment disorder with depressed mood 07/14/19 08 08/29/2016 Seborrheic dermatitis, unspecified 06/12/2007 08/29/2016 Unspecified adjustment reaction 12/19/2006 07/14/2007 documented as of this encounter (statuses as of 02/05/2022) [facility] History of Past illness Narrative* Problem Noted Date Resolved Date Iron deficiency 08/29/2016 12/04/2019 UTI (urinary tract infection) in , ante 02/16/2016 02/16/2016 Urgency of urination 01/19/2016 08/29/2016 Frequency of micturition 01/19/2016 017 Trichomonal vaginitis during in second trimester 11/28/2015 08/29/2016 Overview: November 28, 2015 positive trich was negative a month ago, informed patient of STD and she and and any partners need treated. Consider additional STD testing at next visit and Recommend retesting in 6 weeks Lian Queen MD January 03, 2016 Still + trich treat 2000mg flagyl daily x 7 days. Carlie Campbell MD 02/13/16 Still pos trich. Rx tinizadole. Kimberly Nova, JESICA March 13, 2016 Neg. trich. Carlie Campbell MD History of gastric bypass 09/08/20152019 History of delivery, currently 09/08/2015 05/07/2016 Overview: 09/08/2015 Pt had a previous C section by Dr Zamarripa. She is considering a vs repeat C section by Dr Campbell.TKRN 09/08/2015W C section report states CPD and failure to progress as reason for C Section.TKRN September 15, 2015 Patient not interested in TOLAC, desires repeat c/s. Carlie Campbell MD January 30, 2016 Desires repeat c/s and tubal. R/B/A to sterilization reviewed, title 19 signed. Carlie Campbell MD Tobacco use in 09/08/2015 017 Overview: 09/08/2015Pt smokes 1/2 pack a day of cigarettes. Discussed risks of smoking during . Advised pt to quit.TKRN H/O macrosomia in in prior , currently 09/08/2015 08/29/2016 Overview: 09/08/2015 Pt's previous lavell birthweight was 9#14oz. TKRN Patient requested diagnostic testing 09/08/2015 11/21/2015 Overview: 09/08/2015Pt desires nuchal ultrasound with sequential testing. TKRN History of kidney stones 09/08/2015 016 Marijuana abuse 04/27/2015 08/29/2016 Recurrent UTI (urinary tract infection) complicating 07/22/2014 08/29/2016 Overview: November 28, 2015 Recommend daily antibiotic Lian Queen MD November 21, 2015 Klebsiella UTI and treated with septra. Rpt urine culture 4 weeks. Kimberly Nova CNP January 03, 2016 Consider doing cath specimens for her as suspect low colony counts may be contamination. Carlie Campbell MD Kidney stones 07/22/2014 09/13/2015 Thrombosed external hemorrhoid 08/14/2013 0 09/13/2015 Routine general medical exam ination at a health care facility 06/30/2009 09/13/2015 Overview: 06/30/2009, from Dr. Guerra Routine gynecological examination 06/30/2009 09/13/2015 Overview: [facility] [place] Morbid obesity 06/30/2009 09/13/2015 Insomnia 06/30/2009 09/13/2015 Attention deficit disorder 07/14/200708/29 Overview: Controlled substance agreement-03/19/2015 Adjustment disorder with depressed mood 07/14/19 08 08/29/2016 Seborrheic dermatitis, unspecified 06/12/2007 08/29/2016 Unspecified adjustment reaction 12/19/2006 07/14/2007 documented as of this encounter (statuses as of 02/08/2022) [facility] History of Past illness Narrative* Problem Noted Date Resolved Date Iron deficiency 08/29/2016 12/04/2019 UTI (urinary tract infection) in , ante 02/16/2016 02/16/2016 Urgency of urination 01/19/2016 08/29/2016 Frequency of micturition 01/19/2016 017 Trichomonal vaginitis during in second trimester 11/28/2015 08/29/2016 Overview: November 28, 2015 positive trich was negative a month ago, informed patient of STD and she and and any partners need treated. Consider additional STD testing at next visit and Recommend retesting in 6 weeks Lian Queen MD January 03, 2016 Still + trich treat 2000mg flagyl daily x 7 days. Carlie Campbell MD 02/13/16 Still pos trich. Rx tinizadole. Kimberly Nova, CERTIFIED CODING SPECIALIST March 13, 2016 Neg. trich. Carlie Campbell MD History of gastric bypass 09/08/20152019 History of delivery, currently 09/08/2015 05/07/2016 Overview: 09/08/2015 Pt had a previous C section by Dr Zamarripa. She is considering a vs repeat C section by Dr Campbell.TKRN 09/08/2015[facility] C section report states CPD and failure to progress as reason for C Section.TKRN September 15, 2015 Patient not interested in TOLAC, desires repeat c/s. Carlie Campbell MD January 30, 2016 Desires repeat c/s and tubal. R/B/A to sterilization reviewed, title 19 signed. Carlie Campbell MD Tobacco use in 09/08/2015 017 Overview: 09/08/2015Pt smokes 1/2 pack a day of cigarettes. Discussed risks of smoking during . Advised pt to quit.TKRN H/O macrosomia in infant in prior , currently 09/08/2015 08/29/2016 Overview: 09/08/2015 Pt's previous lavell birthweight was 9#14oz. TKRN Patient requested diagnostic testing 09/08/2015 11/21/2015 Overview: 09/08/2015Pt desires nuchal ultrasound with sequential testing. TKRN History of kidney stones 09/08/2015 016 Marijuana abuse 04/27/2015 08/29/2016 Recurrent UTI (urinary tract infection) complicating 07/22/2014 08/29/2016 Overview: November 28, 2015 Recommend daily antibiotic Lian Queen MD November 21, 2015 Klebsiella UTI and treated with septra. Rpt urine culture 4 weeks. Kimberly Nova CNP January 03, 2016 Consider doing cath specimens for her as suspect low colony counts may be contamination. Carlie Campbell MD Kidney stones 07/22/2014 09/13/2015 Thrombosed external hemorrhoid 08/14/2013 0 09/13/2015 Routine general medical exam ination at a health care facility 06/30/2009 09/13/2015 Overview: 06/30/2009, from Dr. Guerra Routine gynecological examination 06/30/2009 09/13/2015 Overview: [facility] [place] Morbid obesity 06/30/2009 09/13/2015 Insomnia 06/30/2009 09/13/2015 Attention deficit disorder 07/14/200708/29 Overview: Controlled substance agreement-03/19/2015 Adjustment disorder with depressed mood 07/14/1908/29/2016 Seborrheic dermatitis, unspecified 06/12/2007 08/29/2016 Unspecified adjustment reaction 12/19/2006 07/14/2007 documented as of this encounter (statuses as of 02/09/2022) [facility] History of Past illness Narrative* Problem Noted Date Resolved Date Iron deficiency 08/29/2016 12/04/2019 UTI (urinary tract infection) in , ante 02/16/2016 02/16/2016 Urgency of urination 01/19/2016 08/29/2016 Frequency of micturition 01/19/2016 017 Trichomonal vaginitis during in second trimester 11/28/2015 08/29/2016 Overview: November 28, 2015 positive trich was negative a month ago, informed patient of STD and she and and any partners need treated. Consider additional STD testing at next visit and Recommend retesting in 6 weeks Lian Queen MD January 03, 2016 Still + trich treat 2000mg flagyl daily x 7 days. Carlie Campbell MD 02/13/16 Still pos trich. Rx tinizadole. Kimberly Nova, CERTIFIED CODING SPECIALIST March 13, 2016 Neg. trich. Carlie Campbell MD History of gastric bypass 09/08/20152019 History of delivery, currently 09/08/2015 05/07/2016 Overview: 09/08/2015 Pt had a previous C section by Dr Zamarripa. She is considering a vs repeat C section by Dr Campbell.TKRN 09/08/2015W C section report states CPD and failure to progress as reason for C Section.TKRN September 15, 2015 Patient not interested in TOLAC, desires repeat c/s. Carlie Campbell MD January 30, 2016 Desires repeat c/s and tubal. R/B/A to sterilization reviewed, title 19 signed. Carlie Campbell MD Tobacco use in 09/08/2015 017 Overview: 09/08/2015Pt smokes 1/2 pack a day of cigarettes. Discussed risks of smoking during . Advised pt to quit.TKRN H/O macrosomia in in prior , currently 09/08/2015 08/29/2016 Overview: 09/08/2015 Pt's previous lavell birthweight was 9#14oz. TKRN Patient requested diagnostic testing 09/08/2015 11/21/2015 Overview: 09/08/2015Pt desires nuchal ultrasound with sequential testing. TKRN History of kidney stones 09/08/2015 016 Marijuana abuse 04/27/2015 08/29/2016 Recurrent UTI (urinary tract infection) complicating 07/22/2014 08/29/2016 Overview: November 28, 2015 Recommend daily antibiotic Lian Queen MD November 21, 2015 Klebsiella UTI and treated with septra. Rpt urine culture 4 weeks. Kimberly Nova CNP January 03, 2016 Consider doing cath specimens for her as suspect low colony counts may be contamination. Carlie Campbell MD Kidney stones 07/22/2014 09/13/2015 Thrombosed external hemorrhoid 08/14/2013 0 09/13/2015 Routine general medical exam ination at a health care facility 06/30/2009 09/13/2015 Overview: 06/30/2009, from Dr. Guerra Routine gynecological examination 06/30/2009 09/13/2015 Overview: [facility] [place] Morbid obesity 06/30/2009 09/13/2015 Insomnia 06/30/2009 09/13/2015 Attention deficit disorder 07/14/200708/29 Overview: Controlled substance agreement-03/19/2015 Adjustment disorder with depressed mood 07/14/19 08 08/29/2016 Seborrheic dermatitis, unspecified 06/12/2007 08/29/2016 Unspecified adjustment reaction 12/19/2006 07/14/2007 documented as of this encounter (statuses as of 02/12/2022) [facility] History of Past illness Narrative* Problem Noted Date Resolved Date Iron deficiency 08/29/2016 12/04/2019 UTI (urinary tract infection) in , ante 02/16/2016 02/16/2016 Urgency of urination 01/19/2016 08/29/2016 Frequency of micturition 01/19/2016 017 Trichomonal vaginitis during in second trimester 11/28/2015 08/29/2016 Overview: November 28, 2015 positive trich was negative a month ago, informed patient of STD and she and and any partners need treated. Consider additional STD testing at next visit and Recommend retesting in 6 weeks Lian Queen MD January 03, 2016 Still + trich treat 2000mg flagyl daily x 7 days. Carlie Campbell MD 02/13/16 Still pos trich. Rx tinizadole. Kimberly Nova, JESICA March 13, 2016 Neg. trich. Carlie Campbell MD History of gastric bypass 09/08/20152019 History of delivery, currently 09/08/2015 05/07/2016 Overview: 09/08/2015 Pt had a previous C section by Dr Zamarripa. She is considering a vs repeat C section by Dr Campbell.TKRN 09/08/2015W C section report states CPD and failure to progress as reason for C Section.TKRN September 15, 2015 Patient not interested in TOLAC, desires repeat c/s. Carlie Campbell MD January 30, 2016 Desires repeat c/s and tubal. R/B/A to sterilization reviewed, title 19 signed. Carlie Campbell MD Tobacco use in 09/08/2015 017 Overview: 09/08/2015Pt smokes 1/2 pack a day of cigarettes. Discussed risks of smoking during . Advised pt to quit.TKRN H/O macrosomia in infant in prior , currently 09/08/2015 08/29/2016 Overview: 09/08/2015 Pt's previous lavell birthweight was 9#14oz. TKRN Patient requested diagnostic testing 09/08/2015 11/21/2015 Overview: 09/08/2015Pt desires nuchal ultrasound with sequential testing. TKRN History of kidney stones 09/08/2015 016 Marijuana abuse 04/27/2015 08/29/2016 Recurrent UTI (urinary tract infection) complicating 07/22/2014 08/29/2016 Overview: November 28, 2015 Recommend daily antibiotic Lian Queen MD November 21, 2015 Klebsiella UTI and treated with septra. Rpt urine culture 4 weeks. Kimberly Nova CNP January 03, 2016 Consider doing cath specimens for her as suspect low colony counts may be contamination. Carlie Campbell MD Kidney stones 07/22/2014 09/13/2015 Thrombosed external hemorrhoid 08/14/2013 0 09/13/2015 Routine general medical exam ination at a health care facility 06/30/2009 09/13/2015 Overview: 06/30/2009, from Dr. Guerra Routine gynecological examination 06/30/2009 09/13/2015 Overview: [facility] [place] Morbid obesity 06/30/2009 09/13/2015 Insomnia 06/30/2009 09/13/2015 Attention deficit disorder 07/14/200708/29 Overview: Controlled substance agreement-03/19/2015 Adjustment disorder with depressed mood 07/14/19 08 08/29/2016 Seborrheic dermatitis, unspecified 06/12/2007 08/29/2016 Unspecified adjustment reaction 12/19/2006 07/14/2007 documented as of this encounter (statuses as of 03/08/2022) [facility] History of Past illness Narrative* Problem Noted Date Resolved Date Iron deficiency 08/29/2016 12/04/2019 UTI (urinary tract infection) in , ante 02/16/2016 02/16/2016 Urgency of urination 01/19/2016 08/29/2016 Frequency of micturition 01/19/2016 017 Trichomonal vaginitis during in second trimester 11/28/2015 08/29/2016 Overview: November 28, 2015 positive trich was negative a month ago, informed patient of STD and she and and any partners need treated. Consider additional STD testing at next visit and Recommend retesting in 6 weeks Lian Queen MD January 03, 2016 Still + trich treat 2000mg flagyl daily x 7 days. Carlie Campbell MD 02/13/16 Still pos trich. Rx tinizadole. Kimberly Nova, JESICA March 13, 2016 Neg. trich. Carlie Campbell MD History of gastric bypass 09/08/20152019 History of delivery, currently 09/08/2015 05/07/2016 Overview: 09/08/2015 Pt had a previous C section by Dr Zamarripa. She is considering a vs repeat C section by Dr Campbell.TKRN 09/08/2015W C section report states CPD and failure to progress as reason for C Section.TKRN September 15, 2015 Patient not interested in TOLAC, desires repeat c/s. Carlie Campbell MD January 30, 2016 Desires repeat c/s and tubal. R/B/A to sterilization reviewed, title 19 signed. Carlie Campbell MD Tobacco use in 09/08/2015 017 Overview: 09/08/2015Pt smokes 1/2 pack a day of cigarettes. Discussed risks of smoking during . Advised pt to quit.TKRN H/O macrosomia in in prior , currently 09/08/2015 08/29/2016 Overview: 09/08/2015 Pt's previous lavell birthweight was 9#14oz. TKRN Patient requested diagnostic testing 09/08/2015 11/21/2015 Overview: 09/08/2015Pt desires nuchal ultrasound with sequential testing. TKRN History of kidney stones 09/08/2015 016 Marijuana abuse 04/27/2015 08/29/2016 Recurrent UTI (urinary tract infection) complicating 07/22/2014 08/29/2016 Overview: November 28, 2015 Recommend daily antibiotic Lian Queen MD November 21, 2015 Klebsiella UTI and treated with septra. Rpt urine culture 4 weeks. Kimberly JuareztingsJESICA January 03, 2016 Consider doing cath specimens for her as suspect low colony counts may be contamination. Carlie Campbell MD Kidney stones 07/22/2014 09/13/2015 Thrombosed external hemorrhoid 08/14/2013 0 09/13/2015 Routine general medical exam ination at a health care facility 06/30/2009 09/13/2015 Overview: 06/30/2009, from Dr. Guerra Routine gynecological examination 06/30/2009 09/13/2015 Overview: [facility] [place] Morbid obesity 06/30/2009 09/13/2015 Insomnia 06/30/2009 09/13/2015 Attention deficit disorder 07/14/200708/29 Overview: Controlled substance agreement-03/19/2015 Adjustment disorder with depressed mood 07/14/19 08 08/29/2016 Seborrheic dermatitis, unspecified 06/12/2007 08/29/2016 Unspecified adjustment reaction 12/19/2006 07/14/2007 documented as of this encounter (statuses as of 04/06/2022) [facility]05-[facility]2017 History of Past illness Narrative* Problem Noted Date Resolved Date Iron deficiency 08/29/2016 12/04/2019 UTI (urinary tract infection) in , ante 02/16/2016 02/16/2016 Urgency of urination 01/19/2016 08/29/2016 Frequency of micturition 01/19/2016 017 Trichomonal vaginitis during in second trimester 11/28/2015 08/29/2016 Overview: November 28, 2015 positive trich was negative a month ago, informed patient of STD and she and and any partners need treated. Consider additional STD testing at next visit and Recommend retesting in 6 weeks Lian Queen MD January 03, 2016 Still + trich treat 2000mg flagyl daily x 7 days. Carlie Campbell MD 02/13/16 Still pos trich. Rx tinizadole. Kimberly Nova CNP March 13, 2016 Neg. trich. Carlie Campbell MD History of gastric bypass 09/08/20152019 History of delivery, currently 09/08/2015 05/07/2016 Overview: 09/08/2015 Pt had a previous C section by Dr Zamarripa. She is considering a vs repeat C section by Dr Campbell.TKRN 09/08/2015W C section report states CPD and failure to progress as reason for C Section.TKRN September 15, 2015 Patient not interested in TOLAC, desires repeat c/s. Carlie Campbell MD January 30, 2016 Desires repeat c/s and tubal. R/B/A to sterilization reviewed, title 19 signed. Carlie Campbell MD Tobacco use in 09/08/2015 017 Overview: 09/08/2015Pt smokes 1/2 pack a day of cigarettes. Discussed risks of smoking during . Advised pt to quit.TKRN H/O macrosomia in in prior , currently 09/08/2015 08/29/2016 Overview: 09/08/2015 Pt's previous lavell birthweight was 9#14oz. TKRN Patient requested diagnostic testing 09/08/2015 11/21/2015 Overview: 09/08/2015Pt desires nuchal ultrasound with sequential testing. TKRN History of kidney stones 09/08/2015 016 Marijuana abuse 04/27/2015 08/29/2016 Recurrent UTI (urinary tract infection) complicating 07/22/2014 08/29/2016 Overview: November 28, 2015 Recommend daily antibiotic Lian Queen MD November 21, 2015 Klebsiella UTI and treated with septra. Rpt urine culture 4 weeks. Kimberly Nova CNP January 03, 2016 Consider doing cath specimens for her as suspect low colony counts may be contamination. Carlie Campbell MD Kidney stones 07/22/2014 09/13/2015 Thrombosed external hemorrhoid 08/14/2013 0 09/13/2015 Routine general medical exam ination at a health care facility 06/30/2009 09/13/2015 Overview: 06/30/2009, from Dr. Guerra Routine gynecological examination 06/30/2009 09/13/2015 Overview: [facility] [place] Morbid obesity 06/30/2009 09/13/2015 Insomnia 06/30/2009 09/13/2015 Attention deficit disorder 07/14/200708/29 Overview: Controlled substance agreement-03/19/2015 Adjustment disorder with depressed mood 07/14/19 08 08/29/2016 Seborrheic dermatitis, unspecified 06/12/2007 08/29/2016 Unspecified adjustment reaction 12/19/2006 07/14/2007 documented as of this encounter (statuses as of 04/09/2022) [facility]2017 History of Past illness Narrative* Problem Noted Date Resolved Date Iron deficiency 08/29/2016 12/04/2019 UTI (urinary tract infection) in , ante 02/16/2016 02/16/2016 Urgency of urination 01/19/2016 08/29/2016 Frequency of micturition 01/19/2016 017 Trichomonal vaginitis during in second trimester 11/28/2015 08/29/2016 Overview: November 28, 2015 positive trich was negative a month ago, informed patient of STD and she and and any partners need treated. Consider additional STD testing at next visit and Recommend retesting in 6 weeks Lian Queen MD January 03, 2016 Still + trich treat 2000mg flagyl daily x 7 days. Carlie Campbell MD 02/13/16 Still pos trich. Rx tinizadole. Kimberly Nova, JESICA March 13, 2016 Neg. trich. Carlie Campbell MD History of gastric bypass 09/08/20152019 History of delivery, currently 09/08/2015 05/07/2016 Overview: 09/08/2015 Pt had a previous C section by Dr Zamarripa. She is considering a vs repeat C section by Dr Campbell.TKRN 09/08/2015W C section report states CPD and failure to progress as reason for C Section.TKRN September 15, 2015 Patient not interested in TOLAC, desires repeat c/s. Carlie Campbell MD January 30, 2016 Desires repeat c/s and tubal. R/B/A to sterilization reviewed, title 19 signed. Carlie Campbell MD Tobacco use in 09/08/2015 017 Overview: 09/08/2015Pt smokes 1/2 pack a day of cigarettes. Discussed risks of smoking during . Advised pt to quit.TKRN H/O macrosomia in infant in prior , currently 09/08/2015 08/29/2016 Overview: 09/08/2015 Pt's previous lavell birthweight was 9#14oz. TKRN Patient requested diagnostic testing 09/08/2015 11/21/2015 Overview: 09/08/2015Pt desires nuchal ultrasound with sequential testing. TKRN History of kidney stones 09/08/2015 016 Marijuana abuse 04/27/2015 08/29/2016 Recurrent UTI (urinary tract infection) complicating 07/22/2014 08/29/2016 Overview: November 28, 2015 Recommend daily antibiotic Lian Queen MD November 21, 2015 Klebsiella UTI and treated with septra. Rpt urine culture 4 weeks. Kimberly Nova CNP January 03, 2016 Consider doing cath specimens for her as suspect low colony counts may be contamination. Carlie Campbell MD Kidney stones 07/22/2014 09/13/2015 Thrombosed external hemorrhoid 08/14/2013 0 09/13/2015 Routine general medical exam ination at a health care facility 06/30/2009 09/13/2015 Overview: 06/30/2009, from Dr. Guerra Routine gynecological examination 06/30/2009 09/13/2015 Overview: [facility] [place] Morbid obesity 06/30/2009 09/13/2015 Insomnia 06/30/2009 09/13/2015 Attention deficit disorder 07/14/200708/29 Overview: Controlled substance agreement-03/19/2015 Adjustment disorder with depressed mood 07/14/19 08 08/29/2016 Seborrheic dermatitis, unspecified 06/12/2007 08/29/2016 Unspecified adjustment reaction 12/19/2006 07/14/2007 documented as of this encounter (statuses as of 04/10/2022) [facility] History of Past illness Narrative* Problem Noted Date Resolved Date Iron deficiency 08/29/2016 12/04/2019 UTI (urinary tract infection) in , ante 02/16/2016 02/16/2016 Urgency of urination 01/19/2016 08/29/2016 Frequency of micturition 01/19/2016 017 Trichomonal vaginitis during in second trimester 11/28/2015 08/29/2016 Overview: November 28, 2015 positive trich was negative a month ago, informed patient of STD and she and and any partners need treated. Consider additional STD testing at next visit and Recommend retesting in 6 weeks Lian Queen MD January 03, 2016 Still + trich treat 2000mg flagyl daily x 7 days. Carlie Campbell MD 02/13/16 Still pos trich. Rx tinizadole. Kimberly Nova, JESICA March 13, 2016 Neg. trich. Carlie Campbell MD History of gastric bypass 09/08/20152019 History of delivery, currently 09/08/2015 05/07/2016 Overview: 09/08/2015 Pt had a previous C section by Dr Zamarripa. She is considering a vs repeat C section by Dr Campbell.TKRN 09/08/2015W C section report states CPD and failure to progress as reason for C Section.TKRN September 15, 2015 Patient not interested in TOLAC, desires repeat c/s. Carlie Campbell MD January 30, 2016 Desires repeat c/s and tubal. R/B/A to sterilization reviewed, title 19 signed. Carlie Campbell MD Tobacco use in 09/08/2015 017 Overview: 09/08/2015Pt smokes 1/2 pack a day of cigarettes. Discussed risks of smoking during . Advised pt to quit.TKRN H/O macrosomia in in prior , currently 09/08/2015 08/29/2016 Overview: 09/08/2015 Pt's previous lavell birthweight was 9#14oz. TKRN Patient requested diagnostic testing 09/08/2015 11/21/2015 Overview: 09/08/2015Pt desires nuchal ultrasound with sequential testing. TKRN History of kidney stones 09/08/2015 016 Marijuana abuse 04/27/2015 08/29/2016 Recurrent UTI (urinary tract infection) complicating 07/22/2014 08/29/2016 Overview: November 28, 2015 Recommend daily antibiotic Lian Queen MD November 21, 2015 Klebsiella UTI and treated with septra. Rpt urine culture 4 weeks. Kimberly Nova CNP January 03, 2016 Consider doing cath specimens for her as suspect low colony counts may be contamination. Carlie Campbell MD Kidney stones 07/22/2014 09/13/2015 Thrombosed external hemorrhoid 08/14/2013 0 09/13/2015 Routine general medical exam ination at a health care facility 06/30/2009 09/13/2015 Overview: 06/30/2009, from Dr. Guerra Routine gynecological examination 06/30/2009 09/13/2015 Overview: [facility] [place] Morbid obesity 06/30/2009 09/13/2015 Insomnia 06/30/2009 09/13/2015 Attention deficit disorder 07/14/200708/29 Overview: Controlled substance agreement-03/19/2015 Adjustment disorder with depressed mood 07/14/19 08 08/29/2016 Seborrheic dermatitis, unspecified 06/12/2007 08/29/2016 Unspecified adjustment reaction 12/19/2006 07/14/2007 documented as of this encounter (statuses as of 04/24/2022) [facility] History of Past illness Narrative* Problem Noted Date Resolved Date Iron deficiency 08/29/2016 12/04/2019 UTI (urinary tract infection) in , ante 02/16/2016 02/16/2016 Urgency of urination 01/19/2016 08/29/2016 Frequency of micturition 01/19/2016 017 Trichomonal vaginitis during in second trimester 11/28/2015 08/29/2016 Overview: November 28, 2015 positive trich was negative a month ago, informed patient of STD and she and and any partners need treated. Consider additional STD testing at next visit and Recommend retesting in 6 weeks Lian Queen MD January 03, 2016 Still + trich treat 2000mg flagyl daily x 7 days. Carlie Campbell MD 02/13/16 Still pos trich. Rx tinizadole. Kimberly Nova, CERTIFIED CODING SPECIALIST March 13, 2016 Neg. trich. Carlie Campbell MD History of gastric bypass 09/08/20152019 History of delivery, currently 09/08/2015 05/07/2016 Overview: 09/08/2015 Pt had a previous C section by Dr Zamarripa. She is considering a vs repeat C section by Dr Campbell.TKRN 09/08/2015[facility] C section report states CPD and failure to progress as reason for C Section.TKRN September 15, 2015 Patient not interested in TOLAC, desires repeat c/s. Carlie Campbell MD January 30, 2016 Desires repeat c/s and tubal. R/B/A to sterilization reviewed, title 19 signed. Carlie Campbell MD Tobacco use in 09/08/2015 017 Overview: 09/08/2015Pt smokes 1/2 pack a day of cigarettes. Discussed risks of smoking during . Advised pt to quit.TKRN H/O macrosomia in in prior , currently 09/08/2015 08/29/2016 Overview: 09/08/2015 Pt's previous lavell birthweight was 9#14oz. TKRN Patient requested diagnostic testing 09/08/2015 11/21/2015 Overview: 09/08/2015Pt desires nuchal ultrasound with sequential testing. TKRN History of kidney stones 09/08/2015 016 Marijuana abuse 04/27/2015 08/29/2016 Recurrent UTI (urinary tract infection) complicating 07/22/2014 08/29/2016 Overview: November 28, 2015 Recommend daily antibiotic Lian Queen MD November 21, 2015 Klebsiella UTI and treated with septra. Rpt urine culture 4 weeks. Kimberly Nova CNP January 03, 2016 Consider doing cath specimens for her as suspect low colony counts may be contamination. Carlie Campbell MD Kidney stones 07/22/2014 09/13/2015 Thrombosed external hemorrhoid 08/14/2013 0 09/13/2015 Routine general medical exam ination at a health care facility 06/30/2009 09/13/2015 Overview: 06/30/2009, from Dr. Guerra Routine gynecological examination 06/30/2009 09/13/2015 Overview: [facility] [place] Morbid obesity 06/30/2009 09/13/2015 Insomnia 06/30/2009 09/13/2015 Attention deficit disorder 07/14/200708/29 Overview: Controlled substance agreement-03/19/2015 Adjustment disorder with depressed mood 07/14/19 08 08/29/2016 Seborrheic dermatitis, unspecified 06/12/2007 08/29/2016 Unspecified adjustment reaction 12/19/2006 07/14/2007 documented as of this encounter (statuses as of 04/26/2022) [facility] History of Past illness Narrative* Problem Noted Date Resolved Date Iron deficiency 08/29/2016 12/04/2019 UTI (urinary tract infection) in , ante 02/16/2016 02/16/2016 Urgency of urination 01/19/2016 08/29/2016 Frequency of micturition 01/19/2016 017 Trichomonal vaginitis during in second trimester 11/28/2015 08/29/2016 Overview: November 28, 2015 positive trich was negative a month ago, informed patient of STD and she and and any partners need treated. Consider additional STD testing at next visit and Recommend retesting in 6 weeks Lian Queen MD January 03, 2016 Still + trich treat 2000mg flagyl daily x 7 days. Carlie Campbell MD 02/13/16 Still pos trich. Rx tinizadole. Kimberly Nova CNP March 13, 2016 Neg. trich. Carlie Campbell MD History of gastric bypass 09/08/20152019 History of delivery, currently 09/08/2015 05/07/2016 Overview: 09/08/2015 Pt had a previous C section by Dr Zamarripa. She is considering a vs repeat C section by Dr Campbell.TKRN 09/08/2015W C section report states CPD and failure to progress as reason for C Section.TKRN September 15, 2015 Patient not interested in TOLAC, desires repeat c/s. Carlie Campbell MD January 30, 2016 Desires repeat c/s and tubal. R/B/A to sterilization reviewed, title 19 signed. Carlie Campbell MD Tobacco use in 09/08/2015 017 Overview: 09/08/2015Pt smokes 1/2 pack a day of cigarettes. Discussed risks of smoking during . Advised pt to quit.TKRN H/O macrosomia in in prior , currently 09/08/2015 08/29/2016 Overview: 09/08/2015 Pt's previous lavell birthweight was 9#14oz. TKRN Patient requested diagnostic testing 09/08/2015 11/21/2015 Overview: 09/08/2015Pt desires nuchal ultrasound with sequential testing. TKRN History of kidney stones 09/08/2015 016 Marijuana abuse 04/27/2015 08/29/2016 Recurrent UTI (urinary tract infection) complicating 07/22/2014 08/29/2016 Overview: November 28, 2015 Recommend daily antibiotic Lian Queen MD November 21, 2015 Klebsiella UTI and treated with septra. Rpt urine culture 4 weeks. Kimberly Nova CNP January 03, 2016 Consider doing cath specimens for her as suspect low colony counts may be contamination. Carlie Campbell MD Kidney stones 07/22/2014 09/13/2015 Thrombosed external hemorrhoid 08/14/2013 0 09/13/2015 Routine general medical exam ination at a health care facility 06/30/2009 09/13/2015 Overview: 06/30/2009, from Dr. Guerra Routine gynecological examination 06/30/2009 09/13/2015 Overview: [facility] [place] Morbid obesity 06/30/2009 09/13/2015 Insomnia 06/30/2009 09/13/2015 Attention deficit disorder 07/14/200708/29 Overview: Controlled substance agreement-03/19/2015 Adjustment disorder with depressed mood 07/14/19 08 08/29/2016 Seborrheic dermatitis, unspecified 06/12/2007 08/29/2016 Unspecified adjustment reaction 12/19/2006 07/14/2007 documented as of this encounter (statuses as of 05/11/2022) [facility] History of Past illness Narrative* Problem Noted Date Resolved Date Iron deficiency 08/29/2016 12/04/2019 UTI (urinary tract infection) in , ante 02/16/2016 02/16/2016 Urgency of urination 01/19/2016 08/29/2016 Frequency of micturition 01/19/2016 017 Trichomonal vaginitis during in second trimester 11/28/2015 08/29/2016 Overview: November 28, 2015 positive trich was negative a month ago, informed patient of STD and she and and any partners need treated. Consider additional STD testing at next visit and Recommend retesting in 6 weeks Lian Queen MD January 03, 2016 Still + trich treat 2000mg flagyl daily x 7 days. Carlie Campbell MD 02/13/16 Still pos trich. Rx tinizadole. Kimberly Rohini, JESICA March 13, 2016 Neg. trich. Carlie Campbell MD History of gastric bypass 09/08/20152019 History of delivery, currently 09/08/2015 05/07/2016 Overview: 09/08/2015 Pt had a previous C section by Dr Zamarripa. She is considering a vs repeat C section by Dr Campbell.TKRN 09/08/2015W C section report states CPD and failure to progress as reason for C Section.TKRN September 15, 2015 Patient not interested in TOLAC, desires repeat c/s. Carlie Campbell MD January 30, 2016 Desires repeat c/s and tubal. R/B/A to sterilization reviewed, title 19 signed. Carlie Campbell MD Tobacco use in 09/08/2015 017 Overview: 09/08/2015Pt smokes 1/2 pack a day of cigarettes. Discussed risks of smoking during . Advised pt to quit.TKRN H/O macrosomia in infant in prior , currently 09/08/2015 08/29/2016 Overview: 09/08/2015 Pt's previous lavell birthweight was 9#14oz. TKRN Patient requested diagnostic testing 09/08/2015 11/21/2015 Overview: 09/08/2015Pt desires nuchal ultrasound with sequential testing. TKRN History of kidney stones 09/08/2015 016 Marijuana abuse 04/27/2015 08/29/2016 Recurrent UTI (urinary tract infection) complicating 07/22/2014 08/29/2016 Overview: November 28, 2015 Recommend daily antibiotic Lian Queen MD November 21, 2015 Klebsiella UTI and treated with septra. Rpt urine culture 4 weeks. Kimberly JuarezJESICA humphreys January 03, 2016 Consider doing cath specimens for her as suspect low colony counts may be contamination. Carlie Campbell MD Kidney stones 07/22/2014 09/13/2015 Thrombosed external hemorrhoid 08/14/2013 0 09/13/2015 Routine general medical exam ination at a health care facility 06/30/2009 09/13/2015 Overview: 06/30/2009, from Dr. Guerra Routine gynecological examination 06/30/2009 09/13/2015 Overview: [facility] [place] Morbid obesity 06/30/2009 09/13/2015 Insomnia 06/30/2009 09/13/2015 Attention deficit disorder 07/14/200708/29 Overview: Controlled substance agreement-03/19/2015 Adjustment disorder with depressed mood 07/14/19 08 08/29/2016 Seborrheic dermatitis, unspecified 06/12/2007 08/29/2016 Unspecified adjustment reaction 12/19/2006 07/14/2007 documented as of this encounter (statuses as of 06/06/2022) [facility] History of Past illness Narrative* Problem Noted Date Resolved Date Iron deficiency 08/29/2016 12/04/2019 UTI (urinary tract infection) in , ante 02/16/2016 02/16/2016 Urgency of urination 01/19/2016 08/29/2016 Frequency of micturition 01/19/2016 017 Trichomonal vaginitis during in second trimester 11/28/2015 08/29/2016 Overview: November 28, 2015 positive trich was negative a month ago, informed patient of STD and she and and any partners need treated. Consider additional STD testing at next visit and Recommend retesting in 6 weeks Lian Queen MD January 03, 2016 Still + trich treat 2000mg flagyl daily x 7 days. Carlie Campbell MD 02/13/16 Still pos trich. Rx tinizadole. Kimberly Nova CNP March 13, 2016 Neg. trich. Carlie Campbell MD History of gastric bypass 09/08/20152019 History of delivery, currently 09/08/2015 05/07/2016 Overview: 09/08/2015 Pt had a previous C section by Dr Zamarripa. She is considering a vs repeat C section by Dr Campbell.TKRN 09/08/2015[facility] C section report states CPD and failure to progress as reason for C Section.TKRN September 15, 2015 Patient not interested in TOLAC, desires repeat c/s. Carlie Campbell MD January 30, 2016 Desires repeat c/s and tubal. R/B/A to sterilization reviewed, title 19 signed. Carlie Campbell MD Tobacco use in 09/08/2015 017 Overview: 09/08/2015Pt smokes 1/2 pack a day of cigarettes. Discussed risks of smoking during . Advised pt to quit.TKRN H/O macrosomia in infant in prior , currently 09/08/2015 08/29/2016 Overview: 09/08/2015 Pt's previous lavell birthweight was 9#14oz. TKRN Patient requested diagnostic testing 09/08/2015 11/21/2015 Overview: 09/08/2015Pt desires nuchal ultrasound with sequential testing. TKRN History of kidney stones 09/08/2015 016 Marijuana abuse 04/27/2015 08/29/2016 Recurrent UTI (urinary tract infection) complicating 07/22/2014 08/29/2016 Overview: November 28, 2015 Recommend daily antibiotic Lian Queen MD November 21, 2015 Klebsiella UTI and treated with septra. Rpt urine culture 4 weeks. Kimberly Nova CNP January 03, 2016 Consider doing cath specimens for her as suspect low colony counts may be contamination. Carlie Campbell MD Kidney stones 07/22/2014 09/13/2015 Thrombosed external hemorrhoid 08/14/2013 0 09/13/2015 Routine general medical exam ination at a health care facility 06/30/2009 09/13/2015 Overview: 06/30/2009, from Dr. Guerra Routine gynecological examination 06/30/2009 09/13/2015 Overview: [facility], [facility] [place] Morbid obesity 06/30/2009 09/13/2015 Insomnia 06/30/2009 09/13/2015 Attention deficit disorder 07/14/200708/29 Overview: Controlled substance agreement-03/19/2015 Adjustment disorder with depressed mood 07/14/19 08 08/29/2016 Seborrheic dermatitis, unspecified 06/12/2007 08/29/2016 Unspecified adjustment reaction 12/19/2006 07/14/2007 documented as of this encounter (statuses as of 06/07/2022) [facility] History of Past illness Narrative* Problem Noted Date Resolved Date Iron deficiency 08/29/2016 12/04/2019 UTI (urinary tract infection) in , ante 02/16/2016 02/16/2016 Urgency of urination 01/19/2016 08/29/2016 Frequency of micturition 01/19/2016 017 Trichomonal vaginitis during in second trimester 11/28/2015 08/29/2016 Overview: November 28, 2015 positive trich was negative a month ago, informed patient of STD and she and and any partners need treated. Consider additional STD testing at next visit and Recommend retesting in 6 weeks Lian Queen MD January 03, 2016 Still + trich treat 2000mg flagyl daily x 7 days. Carlie Campbell MD 02/13/16 Still pos trich. Rx tinizadole. Kimberly Nova CNP March 13, 2016 Neg. trich. Carlie Campbell MD History of gastric bypass 09/08/20152019 History of delivery, currently 09/08/2015 05/07/2016 Overview: 09/08/2015 Pt had a previous C section by Dr Zamarripa. She is considering a vs repeat C section by Dr Campbell.TKRN 09/08/2015W C section report states CPD and failure to progress as reason for C Section.TKRN September 15, 2015 Patient not interested in TOLAC, desires repeat c/s. Carlie Campbell MD January 30, 2016 Desires repeat c/s and tubal. R/B/A to sterilization reviewed, title 19 signed. Carlie Campbell MD Tobacco use in 09/08/2015 017 Overview: 09/08/2015Pt smokes 1/2 pack a day of cigarettes. Discussed risks of smoking during . Advised pt to quit.TKRN H/O macrosomia in infant in prior , currently 09/08/2015 08/29/2016 Overview: 09/08/2015 Pt's previous lavell birthweight was 9#14oz. TKRN Patient requested diagnostic testing 09/08/2015 11/21/2015 Overview: 09/08/2015Pt desires nuchal ultrasound with sequential testing. TKRN History of kidney stones 09/08/2015 016 Marijuana abuse 04/27/2015 08/29/2016 Recurrent UTI (urinary tract infection) complicating 07/22/2014 08/29/2016 Overview: November 28, 2015 Recommend daily antibiotic Lian Queen MD November 21, 2015 Klebsiella UTI and treated with septra. Rpt urine culture 4 weeks. Kimberly Nova CNP January 03, 2016 Consider doing cath specimens for her as suspect low colony counts may be contamination. Carlie Campbell MD Kidney stones 07/22/2014 09/13/2015 Thrombosed external hemorrhoid 08/14/2013 0 09/13/2015 Routine general medical exam ination at a health care facility 06/30/2009 09/13/2015 Overview: 06/30/2009, from Dr. Guerra Routine gynecological examination 06/30/2009 09/13/2015 Overview: [facility] [place] Morbid obesity 06/30/2009 09/13/2015 Insomnia 06/30/2009 09/13/2015 Attention deficit disorder 07/14/200708/29 Overview: Controlled substance agreement-03/19/2015 Adjustment disorder with depressed mood 07/14/19 08 08/29/2016 Seborrheic dermatitis, unspecified 06/12/2007 08/29/2016 Unspecified adjustment reaction 12/19/2006 07/14/2007 documented as of this encounter (statuses as of 06/08/2022) [facility]05-[facility]-2017 History of Past illness Narrative* Problem Noted Date Resolved Date Iron deficiency 08/29/2016 12/04/2019 UTI (urinary tract infection) in , ante 02/16/2016 02/16/2016 Urgency of urination 01/19/2016 08/29/2016 Frequency of micturition 01/19/2016 017 Trichomonal vaginitis during in second trimester 11/28/2015 08/29/2016 Overview: November 28, 2015 positive trich was negative a month ago, informed patient of STD and she and and any partners need treated. Consider additional STD testing at next visit and Recommend retesting in 6 weeks Lian Queen MD January 03, 2016 Still + trich treat 2000mg flagyl daily x 7 days. Carlie Campbell MD 02/13/16 Still pos trich. Rx tinizadole. Kimberly Nova, CERTIFIED CODING SPECIALIST March 13, 2016 Neg. trich. Carlie Campbell MD History of gastric bypass 09/08/20152019 History of delivery, currently 09/08/2015 05/07/2016 Overview: 09/08/2015 Pt had a previous C section by Dr Zamarripa. She is considering a vs repeat C section by Dr Campbell.TKRN 09/08/2015W C section report states CPD and failure to progress as reason for C Section.TKRN September 15, 2015 Patient not interested in TOLAC, desires repeat c/s. Carlie Campbell MD January 30, 2016 Desires repeat c/s and tubal. R/B/A to sterilization reviewed, title 19 signed. Carlie Campbell MD Tobacco use in 09/08/2015 017 Overview: 09/08/2015Pt smokes 1/2 pack a day of cigarettes. Discussed risks of smoking during . Advised pt to quit.TKRN H/O macrosomia in infant in prior , currently 09/08/2015 08/29/2016 Overview: 09/08/2015 Pt's previous lavell birthweight was 9#14oz. TKRN Patient requested diagnostic testing 09/08/2015 11/21/2015 Overview: 09/08/2015Pt desires nuchal ultrasound with sequential testing. TKRN History of kidney stones 09/08/2015 016 Marijuana abuse 04/27/2015 08/29/2016 Recurrent UTI (urinary tract infection) complicating 07/22/2014 08/29/2016 Overview: November 28, 2015 Recommend daily antibiotic Lian Queen MD November 21, 2015 Klebsiella UTI and treated with septra. Rpt urine culture 4 weeks. Kimberly Nova CNP January 03, 2016 Consider doing cath specimens for her as suspect low colony counts may be contamination. Carlie Campbell MD Kidney stones 07/22/2014 09/13/2015 Thrombosed external hemorrhoid 08/14/2013 0 09/13/2015 Routine general medical exam ination at a health care facility 06/30/2009 09/13/2015 Overview: 06/30/2009, from Dr. Guerra Routine gynecological examination 06/30/2009 09/13/2015 Overview: [facility] [place] Morbid obesity 06/30/2009 09/13/2015 Insomnia 06/30/2009 09/13/2015 Attention deficit disorder 07/14/200708/29 Overview: Controlled substance agreement-03/19/2015 Adjustment disorder with depressed mood 07/14/19 08/29/2016 Seborrheic dermatitis, unspecified 06/12/2007 08/29/2016 Unspecified adjustment reaction 12/19/2006 07/14/2007 documented as of this encounter (statuses as of 07/04/2022) [facility]2017 History of Past illness Narrative* Problem Noted Date Resolved Date Iron deficiency 08/29/2016 12/04/2019 UTI (urinary tract infection) in , ante 02/16/2016 02/16/2016 Urgency of urination 01/19/2016 08/29/2016 Frequency of micturition 01/19/2016 017 Trichomonal vaginitis during in second trimester 11/28/2015 08/29/2016 Overview: November 28, 2015 positive trich was negative a month ago, informed patient of STD and she and and any partners need treated. Consider additional STD testing at next visit and Recommend retesting in 6 weeks Lian Queen MD January 03, 2016 Still + trich treat 2000mg flagyl daily x 7 days. Carlie Campbell MD 02/13/16 Still pos trich. Rx tinizadole. Kimberly Nova, JESICA March 13, 2016 Neg. trich. Carlie Campbell MD History of gastric bypass 09/08/20152019 History of delivery, currently 09/08/2015 05/07/2016 Overview: 09/08/2015 Pt had a previous C section by Dr Zamarripa. She is considering a vs repeat C section by Dr Campbell.TKRN 09/08/2015[facility] C section report states CPD and failure to progress as reason for C Section.TKRN September 15, 2015 Patient not interested in TOLAC, desires repeat c/s. Carlie Campbell MD January 30, 2016 Desires repeat c/s and tubal. R/B/A to sterilization reviewed, title 19 signed. Carlie Campbell MD Tobacco use in 09/08/2015 017 Overview: 09/08/2015Pt smokes 1/2 pack a day of cigarettes. Discussed risks of smoking during . Advised pt to quit.TKRN H/O macrosomia in in prior , currently 09/08/2015 08/29/2016 Overview: 09/08/2015 Pt's previous lavell birthweight was 9#14oz. TKRN Patient requested diagnostic testing 09/08/2015 11/21/2015 Overview: 09/08/2015Pt desires nuchal ultrasound with sequential testing. TKRN History of kidney stones 09/08/2015 016 Marijuana abuse 04/27/2015 08/29/2016 Recurrent UTI (urinary tract infection) complicating 07/22/2014 08/29/2016 Overview: November 28, 2015 Recommend daily antibiotic Lian Queen MD November 21, 2015 Klebsiella UTI and treated with septra. Rpt urine culture 4 weeks. Kimberly Nova CNP January 03, 2016 Consider doing cath specimens for her as suspect low colony counts may be contamination. Carlie Campbell MD Kidney stones 07/22/2014 09/13/2015 Thrombosed external hemorrhoid 08/14/2013 0 09/13/2015 Routine general medical exam ination at a health care facility 06/30/2009 09/13/2015 Overview: 06/30/2009, from Dr. Guerra Routine gynecological examination 06/30/2009 09/13/2015 Overview: [facility] [place] Morbid obesity 06/30/2009 09/13/2015 Insomnia 06/30/2009 09/13/2015 Attention deficit disorder 07/14/200708/29 Overview: Controlled substance agreement-03/19/2015 Adjustment disorder with depressed mood 07/14/19 08 08/29/2016 Seborrheic dermatitis, unspecified 06/12/2007 08/29/2016 Unspecified adjustment reaction 12/19/2006 07/14/2007 documented as of this encounter (statuses as of 07/04/2022) [facility] History of Past illness Narrative* Problem Noted Date Resolved Date Iron deficiency 08/29/2016 12/04/2019 UTI (urinary tract infection) in , ante 02/16/2016 02/16/2016 Urgency of urination 01/19/2016 08/29/2016 Frequency of micturition 01/19/2016 017 Trichomonal vaginitis during in second trimester 11/28/2015 08/29/2016 Overview: November 28, 2015 positive trich was negative a month ago, informed patient of STD and she and and any partners need treated. Consider additional STD testing at next visit and Recommend retesting in 6 weeks Lian Queen MD January 03, 2016 Still + trich treat 2000mg flagyl daily x 7 days. Carlie Campbell MD 02/13/16 Still pos trich. Rx tinizadole. Kimberly Nova, JESICA March 13, 2016 Neg. trich. Carlie Campbell MD History of gastric bypass 09/08/20152019 History of delivery, currently 09/08/2015 05/07/2016 Overview: 09/08/2015 Pt had a previous C section by Dr Zamarripa. She is considering a vs repeat C section by Dr Campbell.TKRN 09/08/2015[facility] C section report states CPD and failure to progress as reason for C Section.TKRN September 15, 2015 Patient not interested in TOLAC, desires repeat c/s. Carlie Campbell MD January 30, 2016 Desires repeat c/s and tubal. R/B/A to sterilization reviewed, title 19 signed. Carlie Campbell MD Tobacco use in 09/08/2015 017 Overview: 09/08/2015Pt smokes 1/2 pack a day of cigarettes. Discussed risks of smoking during . Advised pt to quit.TKRN H/O macrosomia in in prior , currently 09/08/2015 08/29/2016 Overview: 09/08/2015 Pt's previous lavell birthweight was 9#14oz. TKRN Patient requested diagnostic testing 09/08/2015 11/21/2015 Overview: 09/08/2015Pt desires nuchal ultrasound with sequential testing. TKRN History of kidney stones 09/08/2015 016 Marijuana abuse 04/27/2015 08/29/2016 Recurrent UTI (urinary tract infection) complicating 07/22/2014 08/29/2016 Overview: November 28, 2015 Recommend daily antibiotic Lian Queen MD November 21, 2015 Klebsiella UTI and treated with septra. Rpt urine culture 4 weeks. Kimberly Nova CNP January 03, 2016 Consider doing cath specimens for her as suspect low colony counts may be contamination. Carlie Campbell MD Kidney stones 07/22/2014 09/13/2015 Thrombosed external hemorrhoid 08/14/2013 0 09/13/2015 Routine general medical exam ination at a health care facility 06/30/2009 09/13/2015 Overview: 06/30/2009, from Dr. Guerra Routine gynecological examination 06/30/2009 09/13/2015 Overview: [facility] [place] Morbid obesity 06/30/2009 09/13/2015 Insomnia 06/30/2009 09/13/2015 Attention deficit disorder 07/14/200708/29 Overview: Controlled substance agreement-03/19/2015 Adjustment disorder with depressed mood 07/14/19 08 08/29/2016 Seborrheic dermatitis, unspecified 06/12/2007 08/29/2016 Unspecified adjustment reaction 12/19/2006 07/14/2007 documented as of this encounter (statuses as of 07/10/2022) [facility] History of Past illness Narrative* Problem Noted Date Resolved Date Iron deficiency 08/29/2016 12/04/2019 UTI (urinary tract infection) in , ante 02/16/2016 02/16/2016 Urgency of urination 01/19/2016 08/29/2016 Frequency of micturition 01/19/2016 017 Trichomonal vaginitis during in second trimester 11/28/2015 08/29/2016 Overview: November 28, 2015 positive trich was negative a month ago, informed patient of STD and she and and any partners need treated. Consider additional STD testing at next visit and Recommend retesting in 6 weeks Lian Queen MD January 03, 2016 Still + trich treat 2000mg flagyl daily x 7 days. Carlie Campbell MD 02/13/16 Still pos trich. Rx tinizadole. Kimberly Nova, CERTIFIED CODING SPECIALIST March 13, 2016 Neg. trich. Carlie Campbell MD History of gastric bypass 09/08/20152019 History of delivery, currently 09/08/2015 05/07/2016 Overview: 09/08/2015 Pt had a previous C section by Dr Zamarripa. She is considering a vs repeat C section by Dr Campbell.TKRN 09/08/2015W C section report states CPD and failure to progress as reason for C Section.TKRN September 15, 2015 Patient not interested in TOLAC, desires repeat c/s. Carlie Campbell MD January 30, 2016 Desires repeat c/s and tubal. R/B/A to sterilization reviewed, title 19 signed. Carlie Campbell MD Tobacco use in 09/08/2015 017 Overview: 09/08/2015Pt smokes 1/2 pack a day of cigarettes. Discussed risks of smoking during . Advised pt to quit.TKRN H/O macrosomia in infant in prior , currently 09/08/2015 08/29/2016 Overview: 09/08/2015 Pt's previous lavell birthweight was 9#14oz. TKRN Patient requested diagnostic testing 09/08/2015 11/21/2015 Overview: 09/08/2015Pt desires nuchal ultrasound with sequential testing. TKRN History of kidney stones 09/08/2015 016 Marijuana abuse 04/27/2015 08/29/2016 Recurrent UTI (urinary tract infection) complicating 07/22/2014 08/29/2016 Overview: November 28, 2015 Recommend daily antibiotic Lian Queen MD November 21, 2015 Klebsiella UTI and treated with septra. Rpt urine culture 4 weeks. Kimberly Nova CNP January 03, 2016 Consider doing cath specimens for her as suspect low colony counts may be contamination. Carlie Campbell MD Kidney stones 07/22/2014 09/13/2015 Thrombosed external hemorrhoid 08/14/2013 0 09/13/2015 Routine general medical exam ination at a health care facility 06/30/2009 09/13/2015 Overview: 06/30/2009, from Dr. Guerra Routine gynecological examination 06/30/2009 09/13/2015 Overview: [facility], [facility] [place] Morbid obesity 06/30/2009 09/13/2015 Insomnia 06/30/2009 09/13/2015 Attention deficit disorder 07/14/200708/29 Overview: Controlled substance agreement-03/19/2015 Adjustment disorder with depressed mood 07/14/19 08 08/29/2016 Seborrheic dermatitis, unspecified 06/12/2007 08/29/2016 Unspecified adjustment reaction 12/19/2006 07/14/2007 documented as of this encounter (statuses as of 08/08/2022) [facility] History of Past illness Narrative* Problem Noted Date Resolved Date Iron deficiency 08/29/2016 12/04/2019 UTI (urinary tract infection) in , ante 02/16/2016 02/16/2016 Urgency of urination 01/19/2016 08/29/2016 Frequency of micturition 01/19/2016 017 Trichomonal vaginitis during in second trimester 11/28/2015 08/29/2016 Overview: November 28, 2015 positive trich was negative a month ago, informed patient of STD and she and and any partners need treated. Consider additional STD testing at next visit and Recommend retesting in 6 weeks Lian Queen MD January 03, 2016 Still + trich treat 2000mg flagyl daily x 7 days. Carlie Campbell MD 02/13/16 Still pos trich. Rx tinizadole. Kimberly Nova CNP March 13, 2016 Neg. trich. Carlie Campbell MD History of gastric bypass 09/08/20152019 History of delivery, currently 09/08/2015 05/07/2016 Overview: 09/08/2015 Pt had a previous C section by Dr Zamarripa. She is considering a vs repeat C section by Dr Campbell.TKRN 09/08/2015W C section report states CPD and failure to progress as reason for C Section.TKRN September 15, 2015 Patient not interested in TOLAC, desires repeat c/s. Carlie Campbell MD January 30, 2016 Desires repeat c/s and tubal. R/B/A to sterilization reviewed, title 19 signed. Carlie Campbell MD Tobacco use in 09/08/2015 017 Overview: 09/08/2015Pt smokes 1/2 pack a day of cigarettes. Discussed risks of smoking during . Advised pt to quit.TKRN H/O macrosomia in in prior , currently 09/08/2015 08/29/2016 Overview: 09/08/2015 Pt's previous lavell birthweight was 9#14oz. TKRN Patient requested diagnostic testing 09/08/2015 11/21/2015 Overview: 09/08/2015Pt desires nuchal ultrasound with sequential testing. TKRN History of kidney stones 09/08/2015 016 Marijuana abuse 04/27/2015 08/29/2016 Recurrent UTI (urinary tract infection) complicating 07/22/2014 08/29/2016 Overview: November 28, 2015 Recommend daily antibiotic Lian Queen MD November 21, 2015 Klebsiella UTI and treated with septra. Rpt urine culture 4 weeks. Kimberly Nova CNP January 03, 2016 Consider doing cath specimens for her as suspect low colony counts may be contamination. Carlie Campbell MD Kidney stones 07/22/2014 09/13/2015 Thrombosed external hemorrhoid 08/14/2013 0 09/13/2015 Routine general medical exam ination at a health care facility 06/30/2009 09/13/2015 Overview: 06/30/2009, from Dr. Guerra Routine gynecological examination 06/30/2009 09/13/2015 Overview: [facility], [facility] [place] Morbid obesity 06/30/2009 09/13/2015 Insomnia 06/30/2009 09/13/2015 Attention deficit disorder 07/14/200708/29 Overview: Controlled substance agreement-03/19/2015 Adjustment disorder with depressed mood 07/14/19 08 08/29/2016 Seborrheic dermatitis, unspecified 06/12/2007 08/29/2016 Unspecified adjustment reaction 12/19/2006 07/14/2007 documented as of this encounter (statuses as of 10/03/2022) [facility] History of Past illness Narrative* Problem Noted Date Diagnosed Date Resolved Date Iron deficiency 08/29/2016 12/04/2019 UTI (urinary tract infection ) in , antepartum 02/16/2016 02/16/2016 Urgency of urination 01/19/2016 017 Frequency of micturition 01/19/2016 Trichomonal vaginitis during in second trimester 11/28/2015 08/29/2016 Overview: November 28, 2015 positive trich was negative a month ago, informed patient of STD and she and and any partners need treated. Consider additional STD testing at next visit and Recommend retesting in 6 weeks Lian Queen MD January 03, 2016 Still + trich treat 2000mg flagyl daily x 7 days. Carlie Campbell MD 02/13/16 Still pos trich. Rx tinizadole. Kimberly Nova, JESICA March 13, 2016 Neg. trich. Carlie Campbell MD History of gastric bypass 09/08/2015 History of delivery , currently 09/08/2015 05/07/2016 Overview: 09/08/2015 Pt had a previous C section by Dr Zamarripa. She is considering a vs repeat C section by Dr Campbell.TKRN 09/08/2015W C section report states CPD and failure to progress as reason for C Section.TKRN September 15, 2015 Patient not interested in TOLAC, desires repeat c/s. Carlie Campbell MD January 30, 2016 Desires repeat c/s and tubal. R/B/A to sterilization reviewed, title 19 signed. Carlie Campbell MD Tobacco use in 09/08/2015 Overview: 09/08/2015Pt smokes 1/2 pack a day of cigarettes. Discussed risks of smoking during . Advised pt to quit.TKRN H/O macrosomia in infant in prior , currently 09/08/2015 08/29/2016 Overview: 09/08/2015 Pt's previous lavell birthweight was 9#14oz. TKRN Patient requested diagnostic testing 09/08/2015 11/21/2015 Overview: 09/08/2015Pt desires nuchal ultrasound with sequential testing. TKRN History of kidney stones 09/08/2015 Marijuana abuse 04/27/2015 08/29/2016 Recurrent UTI (urinary tract infection) complicating 07/22/2014 08/29/2016 Overview: November 28, 2015 Recommend daily antibiotic Lian Queen MD November 21, 2015 Klebsiella UTI and treated with septra. Rpt urine culture 4 weeks. Kimberly Nova CNP January 03, 2016 Consider doing cath specimens for her as suspect low colony counts may be contamination. Carlie Campbell MD Kidney stones 07/22/2014 09/13/2015 Thrombosed external hemorrhoid 08/14/2013 09/13/2015 Routine general medical exam ination at a health care facility 06/30/2009 09/13/2015 Overview: 06/30/2009, from Dr. Guerra Routine gynecological examination 06/30/2009 09/13/2015 Overview: [facility] [place] Morbid obesity 06/30/2009 09/13/2015 Insomnia 06/30/2009 09/13/2015 Attention deficit disorder 07/14/2007 0 08/29/2016 Overview: Controlled substance agreement-03/19/2015 Adjustment disorder with depressed mood 07/14/2007 08/29/2016 Seborrheic dermatitis, unspecified 06/12/2007 08/29/2016 Unspecified adjustment reaction 12/19/2006 07/14/2007 documented as of this encounter (statuses as of 11/05/2022) [facility] History of Past illness Narrative* Problem Noted Date Diagnosed Date Resolved Date Iron deficiency 08/29/2016 12/04/2019 UTI (urinary tract infection ) in , antepartum 02/16/2016 02/16/2016 Urgency of urination 01/19/2016 017 Frequency of micturition 01/19/2016 Trichomonal vaginitis during in second trimester 11/28/2015 08/29/2016 Overview: November 28, 2015 positive trich was negative a month ago, informed patient of STD and she and and any partners need treated. Consider additional STD testing at next visit and Recommend retesting in 6 weeks Lian Queen MD January 03, 2016 Still + trich treat 2000mg flagyl daily x 7 days. Carlie Campbell MD 02/13/16 Still pos trich. Rx tinizadole. Kimberly Nova, CERTIFIED CODING SPECIALIST March 13, 2016 Neg. trich. Carlie Campbell MD History of gastric bypass 09/08/2015 History of delivery , currently 09/08/2015 05/07/2016 Overview: 09/08/2015 Pt had a previous C section by Dr Zamarripa. She is considering a vs repeat C section by Dr Campbell.TKRN 09/08/2015W C section report states CPD and failure to progress as reason for C Section.TKRN September 15, 2015 Patient not interested in TOLAC, desires repeat c/s. Carlie Campbell MD January 30, 2016 Desires repeat c/s and tubal. R/B/A to sterilization reviewed, title 19 signed. Carlie Campbell MD Tobacco use in 09/08/2015 Overview: 09/08/2015Pt smokes 1/2 pack a day of cigarettes. Discussed risks of smoking during . Advised pt to quit.TKRN H/O macrosomia in in prior , currently 09/08/2015 08/29/2016 Overview: 09/08/2015 Pt's previous lavell birthweight was 9#14oz. TKRN Patient requested diagnostic testing 09/08/2015 11/21/2015 Overview: 09/08/2015Pt desires nuchal ultrasound with sequential testing. TKRN History of kidney stones 09/08/2015 Marijuana abuse 04/27/2015 08/29/2016 Recurrent UTI (urinary tract infection) complicating 07/22/2014 08/29/2016 Overview: November 28, 2015 Recommend daily antibiotic Lian Queen MD November 21, 2015 Klebsiella UTI and treated with septra. Rpt urine culture 4 weeks. Kimberly Nova, JESICA January 03, 2016 Consider doing cath specimens for her as suspect low colony counts may be contamination. Carlie Campbell MD Kidney stones 07/22/2014 09/13/2015 Thrombosed external hemorrhoid 08/14/2013 09/13/2015 Routine general medical exam ination at a health care facility 06/30/2009 09/13/2015 Overview: 06/30/2009, from Dr. Guerra Routine gynecological examination 06/30/2009 09/13/2015 Overview: [facility] [place] Morbid obesity 06/30/2009 09/13/2015 Insomnia 06/30/2009 09/13/2015 Attention deficit disorder 07/14/2007 0 08/29/2016 Overview: Controlled substance agreement-03/19/2015 Adjustment disorder with depressed mood 07/14/2007 08/29/2016 Seborrheic dermatitis, unspecified 06/12/2007 08/29/2016 Unspecified adjustment reaction 12/19/2006 07/14/2007 documented as of this encounter (statuses as of 11/15/2022) [facility] History of Past illness Narrative* Problem Noted Date Diagnosed Date Resolved Date Iron deficiency 08/29/2016 12/04/2019 UTI (urinary tract infection ) in , antepartum 02/16/2016 02/16/2016 Urgency of urination 01/19/2016 017 Frequency of micturition 01/19/2016 Trichomonal vaginitis during in second trimester 11/28/2015 08/29/2016 Overview: November 28, 2015 positive trich was negative a month ago, informed patient of STD and she and and any partners need treated. Consider additional STD testing at next visit and Recommend retesting in 6 weeks Lian Queen MD January 03, 2016 Still + trich treat 2000mg flagyl daily x 7 days. Carlie Campbell MD 02/13/16 Still pos trich. Rx tinizadole. Kimberly Nova, JESICA March 13, 2016 Neg. trich. Carlie Campbell MD History of gastric bypass 09/08/2015 History of delivery , currently 09/08/2015 05/07/2016 Overview: 09/08/2015 Pt had a previous C section by Dr Zamarripa. She is considering a vs repeat C section by Dr Campbell.TKRN 09/08/2015[facility] C section report states CPD and failure to progress as reason for C Section.TKRN September 15, 2015 Patient not interested in TOLAC, desires repeat c/s. Carlie Campbell MD January 30, 2016 Desires repeat c/s and tubal. R/B/A to sterilization reviewed, title 19 signed. Carlie Campbell MD Tobacco use in 09/08/2015 Overview: 09/08/2015Pt smokes 1/2 pack a day of cigarettes. Discussed risks of smoking during . Advised pt to quit.TKRN H/O macrosomia in infant in prior , currently 09/08/2015 08/29/2016 Overview: 09/08/2015 Pt's previous lavell birthweight was 9#14oz. TKRN Patient requested diagnostic testing 09/08/2015 11/21/2015 Overview: 09/08/2015Pt desires nuchal ultrasound with sequential testing. TKRN History of kidney stones 09/08/2015 Marijuana abuse 04/27/2015 08/29/2016 Recurrent UTI (urinary tract infection) complicating 07/22/2014 08/29/2016 Overview: November 28, 2015 Recommend daily antibiotic Lian Queen MD November 21, 2015 Klebsiella UTI and treated with septra. Rpt urine culture 4 weeks. Kimberly Nova CNP January 03, 2016 Consider doing cath specimens for her as suspect low colony counts may be contamination. Carlie Campbell MD Kidney stones 07/22/2014 09/13/2015 Thrombosed external hemorrhoid 08/14/2013 09/13/2015 Routine general medical exam ination at a health care facility 06/30/2009 09/13/2015 Overview: 06/30/2009, from Dr. Guerra Routine gynecological examination 06/30/2009 09/13/2015 Overview: [facility] [place] [facility] [place] Morbid obesity 06/30/2009 09/13/2015 Insomnia 06/30/2009 09/13/2015 Attention deficit disorder 07/14/2007 0 08/29/2016 Overview: Controlled substance agreement-03/19/2015 Adjustment disorder with depressed mood 07/14/2007 08/29/2016 Seborrheic dermatitis, unspecified 06/12/2007 08/29/2016 Unspecified adjustment reaction 12/19/2006 07/14/2007 documented as of this encounter (statuses as of 11/28/2022) [facility]05-31-2017 History of Past illness Narrative* Problem Noted Date Diagnosed Date Resolved Date Iron deficiency 08/29/2016 12/04/2019 UTI (urinary tract infection ) in , antepartum 02/16/2016 02/16/2016 Urgency of urination 01/19/2016 017 Frequency of micturition 01/19/2016 Trichomonal vaginitis during in second trimester 11/28/2015 08/29/2016 Overview: November 28, 2015 positive trich was negative a month ago, informed patient of STD and she and and any partners need treated. Consider additional STD testing at next visit and Recommend retesting in 6 weeks Lian Queen MD January 03, 2016 Still + trich treat 2000mg flagyl daily x 7 days. Carlie Campbell MD 02/13/16 Still pos trich. Rx tinizadole. Kimberly Nova, JESICA March 13, 2016 Neg. trich. Carlie Campbell MD History of gastric bypass 09/08/2015 History of delivery , currently 09/08/2015 05/07/2016 Overview: 09/08/2015 Pt had a previous C section by Dr Zamarripa. She is considering a vs repeat C section by Dr Campbell.TKRN 09/08/2015W C section report states CPD and failure to progress as reason for C Section.TKRN September 15, 2015 Patient not interested in TOLAC, desires repeat c/s. Carlie Campbell MD January 30, 2016 Desires repeat c/s and tubal. R/B/A to sterilization reviewed, title 19 signed. Carlie Campbell MD Tobacco use in 09/08/2015 Overview: 09/08/2015Pt smokes 1/2 pack a day of cigarettes. Discussed risks of smoking during . Advised pt to quit.TKRN H/O macrosomia in infant in prior , currently 09/08/2015 08/29/2016 Overview: 09/08/2015 Pt's previous lavell birthweight was 9#14oz. TKRN Patient requested diagnostic testing 09/08/2015 11/21/2015 Overview: 09/08/2015Pt desires nuchal ultrasound with sequential testing. TKRN History of kidney stones 09/08/2015 Marijuana abuse 04/27/2015 08/29/2016 Recurrent UTI (urinary tract infection) complicating 07/22/2014 08/29/2016 Overview: November 28, 2015 Recommend daily antibiotic Lian Queen MD November 21, 2015 Klebsiella UTI and treated with septra. Rpt urine culture 4 weeks. Kimberly Nova CNP January 03, 2016 Consider doing cath specimens for her as suspect low colony counts may be contamination. Carlie Campbell MD Kidney stones 07/22/2014 09/13/2015 Thrombosed external hemorrhoid 08/14/2013 09/13/2015 Routine general medical exam ination at a health care facility 06/30/2009 09/13/2015 Overview: 06/30/2009, from Dr. Guerra Routine gynecological examination 06/30/2009 09/13/2015 Overview: [facility] [place] Morbid obesity 06/30/2009 09/13/2015 Insomnia 06/30/2009 09/13/2015 Attention deficit disorder 07/14/2007 0 08/29/2016 Overview: Controlled substance agreement-03/19/2015 Adjustment disorder with depressed mood 07/14/2007 08/29/2016 Seborrheic dermatitis, unspecified 06/12/2007 08/29/2016 Unspecified adjustment reaction 12/19/2006 07/14/2007 documented as of this encounter (statuses as of 12/18/2022) [facility]05[facility]2017 History of Past illness Narrative* Problem Noted Date Diagnosed Date Resolved Date Iron deficiency 08/29/2016 12/04/2019 UTI (urinary tract infection ) in , antepartum 02/16/2016 02/16/2016 Urgency of urination 01/19/2016 017 Frequency of micturition 01/19/2016 Trichomonal vaginitis during in second trimester 11/28/2015 08/29/2016 Overview: November 28, 2015 positive trich was negative a month ago, informed patient of STD and she and and any partners need treated. Consider additional STD testing at next visit and Recommend retesting in 6 weeks Lian Queen MD January 03, 2016 Still + trich treat 2000mg flagyl daily x 7 days. Carlie Campbell MD 02/13/16 Still pos trich. Rx tinizadole. Kimberly Nova, JESICA March 13, 2016 Neg. trich. Carlie Campbell MD History of gastric bypass 09/08/2015 History of delivery , currently 09/08/2015 05/07/2016 Overview: 09/08/2015 Pt had a previous C section by Dr Zamarripa. She is considering a vs repeat C section by Dr Campbell.TKRN 09/08/2015W C section report states CPD and failure to progress as reason for C Section.TKRN September 15, 2015 Patient not interested in TOLAC, desires repeat c/s. Carlie Campbell MD January 30, 2016 Desires repeat c/s and tubal. R/B/A to sterilization reviewed, title 19 signed. Carlie Campbell MD Tobacco use in 09/08/2015 Overview: 09/08/2015Pt smokes 1/2 pack a day of cigarettes. Discussed risks of smoking during . Advised pt to quit.TKRN H/O macrosomia in in prior , currently 09/08/2015 08/29/2016 Overview: 09/08/2015 Pt's previous lavell birthweight was 9#14oz. TKRN Patient requested diagnostic testing 09/08/2015 11/21/2015 Overview: 09/08/2015Pt desires nuchal ultrasound with sequential testing. TKRN History of kidney stones 09/08/2015 Marijuana abuse 04/27/2015 08/29/2016 Recurrent UTI (urinary tract infection) complicating 07/22/2014 08/29/2016 Overview: November 28, 2015 Recommend daily antibiotic Lian Queen MD November 21, 2015 Klebsiella UTI and treated with septra. Rpt urine culture 4 weeks. Kimberly Nova CNP January 03, 2016 Consider doing cath specimens for her as suspect low colony counts may be contamination. Carlie Campbell MD Kidney stones 07/22/2014 09/13/2015 Thrombosed external hemorrhoid 08/14/2013 09/13/2015 Routine general medical exam ination at a health care facility 06/30/2009 09/13/2015 Overview: 06/30/2009, from Dr. Guerra Routine gynecological examination 06/30/2009 09/13/2015 Overview: [facility], [facility] [place] Morbid obesity 06/30/2009 09/13/2015 Insomnia 06/30/2009 09/13/2015 Attention deficit disorder 07/14/2007 0 08/29/2016 Overview: Controlled substance agreement-03/19/2015 Adjustment disorder with depressed mood 07/14/2007 08/29/2016 Seborrheic dermatitis, unspecified 06/12/2007 08/29/2016 Unspecified adjustment reaction 12/19/2006 07/14/2007 documented as of this encounter (statuses as of 05/07/2023) [facility]2017 History of Past illness Narrative* Problem Noted Date Diagnosed Date Resolved Date Iron deficiency 08/29/2016 12/04/2019 UTI (urinary tract infection ) in , antepartum 02/16/2016 02/16/2016 Urgency of urination 01/19/2016 017 Frequency of micturition 01/19/2016 Trichomonal vaginitis during in second trimester 11/28/2015 08/29/2016 Overview: November 28, 2015 positive trich was negative a month ago, informed patient of STD and she and and any partners need treated. Consider additional STD testing at next visit and Recommend retesting in 6 weeks Lian Queen MD January 03, 2016 Still + trich treat 2000mg flagyl daily x 7 days. Carlie Campbell MD 02/13/16 Still pos trich. Rx tinizadole. Kimberly Nova CNP March 13, 2016 Neg. trich. Carlie Campbell MD History of gastric bypass 09/08/2015 History of delivery , currently 09/08/2015 05/07/2016 Overview: 09/08/2015 Pt had a previous C section by Dr Zamarripa. She is considering a vs repeat C section by Dr Campbell.TKRN 09/08/2015W C section report states CPD and failure to progress as reason for C Section.TKRN September 15, 2015 Patient not interested in TOLAC, desires repeat c/s. Carlie Campbell MD January 30, 2016 Desires repeat c/s and tubal. R/B/A to sterilization reviewed, title 19 signed. Carlie Campbell MD Tobacco use in 09/08/2015 Overview: 09/08/2015Pt smokes 1/2 pack a day of cigarettes. Discussed risks of smoking during . Advised pt to quit.TKRN H/O macrosomia in in prior , currently 09/08/2015 08/29/2016 Overview: 09/08/2015 Pt's previous lavell birthweight was 9#14oz. TKRN Patient requested diagnostic testing 09/08/2015 11/21/2015 Overview: 09/08/2015Pt desires nuchal ultrasound with sequential testing. TKRN History of kidney stones 09/08/2015 Marijuana abuse 04/27/2015 08/29/2016 Recurrent UTI (urinary tract infection) complicating 07/22/2014 08/29/2016 Overview: November 28, 2015 Recommend daily antibiotic Lian Queen MD November 21, 2015 Klebsiella UTI and treated with septra. Rpt urine culture 4 weeks. Kimberly Noav CNP January 03, 2016 Consider doing cath specimens for her as suspect low colony counts may be contamination. Carlie Campbell MD Kidney stones 07/22/2014 09/13/2015 Thrombosed external hemorrhoid 08/14/2013 09/13/2015 Routine general medical exam ination at a health care facility 06/30/2009 09/13/2015 Overview: 06/30/2009, from Dr. Guerra Routine gynecological examination 06/30/2009 09/13/2015 Overview: [facility] [place] Morbid obesity 06/30/2009 09/13/2015 Insomnia 06/30/2009 09/13/2015 Attention deficit disorder 07/14/2007 0 08/29/2016 Overview: Controlled substance agreement-03/19/2015 Adjustment disorder with depressed mood 07/14/2007 08/29/2016 Seborrheic dermatitis, unspecified 06/12/2007 08/29/2016 Unspecified adjustment reaction 12/19/2006 07/14/2007 documented as of this encounter (statuses as of 05/15/2023) [facility]2017 History of Past illness Narrative* Problem Noted Date Diagnosed Date Resolved Date Iron deficiency 08/29/2016 12/04/2019 UTI (urinary tract infection ) in , antepartum 02/16/2016 02/16/2016 Urgency of urination 01/19/2016 017 Frequency of micturition 01/19/2016 Trichomonal vaginitis during in second trimester 11/28/2015 08/29/2016 Overview: November 28, 2015 positive trich was negative a month ago, informed patient of STD and she and and any partners need treated. Consider additional STD testing at next visit and Recommend retesting in 6 weeks Lian Queen MD January 03, 2016 Still + trich treat 2000mg flagyl daily x 7 days. Carlie Campbell MD 02/13/16 Still pos trich. Rx tinizadole. Kimberly Nova, JESICA March 13, 2016 Neg. trich. Carlie Campbell MD History of gastric bypass 09/08/2015 History of delivery , currently 09/08/2015 05/07/2016 Overview: 09/08/2015 Pt had a previous C section by Dr Zamarripa. She is considering a vs repeat C section by Dr Campbell.TKRN 09/08/2015W C section report states CPD and failure to progress as reason for C Section.TKRN September 15, 2015 Patient not interested in TOLAC, desires repeat c/s. Carlie Campbell MD January 30, 2016 Desires repeat c/s and tubal. R/B/A to sterilization reviewed, title 19 signed. Carlie Campbell MD Tobacco use in 09/08/2015 Overview: 09/08/2015Pt smokes 1/2 pack a day of cigarettes. Discussed risks of smoking during . Advised pt to quit.TKRN H/O macrosomia in in prior , currently 09/08/2015 08/29/2016 Overview: 09/08/2015 Pt's previous lavell birthweight was 9#14oz. TKRN Patient requested diagnostic testing 09/08/2015 11/21/2015 Overview: 09/08/2015Pt desires nuchal ultrasound with sequential testing. TKRN History of kidney stones 09/08/2015 Marijuana abuse 04/27/2015 08/29/2016 Recurrent UTI (urinary tract infection) complicating 07/22/2014 08/29/2016 Overview: November 28, 2015 Recommend daily antibiotic Lian Queen MD November 21, 2015 Klebsiella UTI and treated with septra. Rpt urine culture 4 weeks. Kimberly Nova CNP January 03, 2016 Consider doing cath specimens for her as suspect low colony counts may be contamination. Carlie Campbell MD Kidney stones 07/22/2014 09/13/2015 Thrombosed external hemorrhoid 08/14/2013 09/13/2015 Routine general medical exam ination at a health care facility 06/30/2009 09/13/2015 Overview: 06/30/2009, from Dr. Guerra Routine gynecological examination 06/30/2009 09/13/2015 Overview: [facility], [facility] [place] Morbid obesity 06/30/2009 09/13/2015 Insomnia 06/30/2009 09/13/2015 Attention deficit disorder 07/14/2007 0 08/29/2016 Overview: Controlled substance agreement-03/19/2015 Adjustment disorder with depressed mood 07/14/2007 08/29/2016 Seborrheic dermatitis, unspecified 06/12/2007 08/29/2016 Unspecified adjustment reaction 12/19/2006 07/14/2007 documented as of this encounter (statuses as of 05/17/2023) [facility]2017 History of Past illness Narrative* Problem Noted Date Diagnosed Date Resolved Date Iron deficiency 08/29/2016 12/04/2019 UTI (urinary tract infection ) in , antepartum 02/16/2016 02/16/2016 Urgency of urination 01/19/2016 017 Frequency of micturition 01/19/2016 Trichomonal vaginitis during in second trimester 11/28/2015 08/29/2016 Overview: November 28, 2015 positive trich was negative a month ago, informed patient of STD and she and and any partners need treated. Consider additional STD testing at next visit and Recommend retesting in 6 weeks Lian Queen MD January 03, 2016 Still + trich treat 2000mg flagyl daily x 7 days. Carlie Campbell MD 02/13/16 Still pos trich. Rx tinizadole. Kimberly Nova, JESICA March 13, 2016 Neg. trich. Carlie Campbell MD History of gastric bypass 09/08/2015 History of delivery , currently 09/08/2015 05/07/2016 Overview: 09/08/2015 Pt had a previous C section by Dr Zamarripa. She is considering a vs repeat C section by Dr Campbell.TKRN 09/08/2015W C section report states CPD and failure to progress as reason for C Section.TKRN September 15, 2015 Patient not interested in TOLAC, desires repeat c/s. Carlie Campbell MD January 30, 2016 Desires repeat c/s and tubal. R/B/A to sterilization reviewed, title 19 signed. Carlie Campbell MD Tobacco use in 09/08/2015 Overview: 09/08/2015Pt smokes 1/2 pack a day of cigarettes. Discussed risks of smoking during . Advised pt to quit.TKRN H/O macrosomia in in prior , currently 09/08/2015 08/29/2016 Overview: 09/08/2015 Pt's previous lavell birthweight was 9#14oz. TKRN Patient requested diagnostic testing 09/08/2015 11/21/2015 Overview: 09/08/2015Pt desires nuchal ultrasound with sequential testing. TKRN History of kidney stones 09/08/2015 Marijuana abuse 04/27/2015 08/29/2016 Recurrent UTI (urinary tract infection) complicating 07/22/2014 08/29/2016 Overview: November 28, 2015 Recommend daily antibiotic Lian Queen MD November 21, 2015 Klebsiella UTI and treated with septra. Rpt urine culture 4 weeks. Kimberly Nova CNP January 03, 2016 Consider doing cath specimens for her as suspect low colony counts may be contamination. Carlie Campbell MD Kidney stones 07/22/2014 09/13/2015 Thrombosed external hemorrhoid 08/14/2013 09/13/2015 Routine general medical exam ination at a health care facility 06/30/2009 09/13/2015 Overview: 06/30/2009, from Dr. Guerra Routine gynecological examination 06/30/2009 09/13/2015 Overview: [facility] [place] Morbid obesity 06/30/2009 09/13/2015 Insomnia 06/30/2009 09/13/2015 Attention deficit disorder 07/14/2007 0 08/29/2016 Overview: Controlled substance agreement-03/19/2015 Adjustment disorder with depressed mood 07/14/2007 08/29/2016 Seborrheic dermatitis, unspecified 06/12/2007 08/29/2016 Unspecified adjustment reaction 12/19/2006 07/14/2007 documented as of this encounter (statuses as of 05/19/2023) [facility] History of Past illness Narrative* Problem Noted Date Diagnosed Date Resolved Date Iron deficiency 08/29/2016 12/04/2019 UTI (urinary tract infection ) in , antepartum 02/16/2016 02/16/2016 Urgency of urination 01/19/2016 017 Frequency of micturition 01/19/2016 Trichomonal vaginitis during in second trimester 11/28/2015 08/29/2016 Overview: November 28, 2015 positive trich was negative a month ago, informed patient of STD and she and and any partners need treated. Consider additional STD testing at next visit and Recommend retesting in 6 weeks Lian Queen MD January 03, 2016 Still + trich treat 2000mg flagyl daily x 7 days. Carlie Campbell MD 02/13/16 Still pos trich. Rx tinizadole. Kimberly Nova, JESICA March 13, 2016 Neg. trich. Carlie Campbell MD History of gastric bypass 09/08/2015 History of delivery , currently 09/08/2015 05/07/2016 Overview: 09/08/2015 Pt had a previous C section by Dr Zamarripa. She is considering a vs repeat C section by Dr Campbell.TKRN 09/08/2015[facility] C section report states CPD and failure to progress as reason for C Section.TKRN September 15, 2015 Patient not interested in TOLAC, desires repeat c/s. Carlie Campbell MD January 30, 2016 Desires repeat c/s and tubal. R/B/A to sterilization reviewed, title 19 signed. Carlie Campbell MD Tobacco use in 09/08/2015 Overview: 09/08/2015Pt smokes 1/2 pack a day of cigarettes. Discussed risks of smoking during . Advised pt to quit.TKRN H/O macrosomia in in prior , currently 09/08/2015 08/29/2016 Overview: 09/08/2015 Pt's previous lavell birthweight was 9#14oz. TKRN Patient requested diagnostic testing 09/08/2015 11/21/2015 Overview: 09/08/2015Pt desires nuchal ultrasound with sequential testing. TKRN History of kidney stones 09/08/2015 Marijuana abuse 04/27/2015 08/29/2016 Recurrent UTI (urinary tract infection) complicating 07/22/2014 08/29/2016 Overview: November 28, 2015 Recommend daily antibiotic Lian Queen MD November 21, 2015 Klebsiella UTI and treated with septra. Rpt urine culture 4 weeks. Kimberly Nova CNP January 03, 2016 Consider doing cath specimens for her as suspect low colony counts may be contamination. Carlie Campbell MD Kidney stones 07/22/2014 09/13/2015 Thrombosed external hemorrhoid 08/14/2013 09/13/2015 Routine general medical exam ination at a health care facility 06/30/2009 09/13/2015 Overview: 06/30/2009, from Dr. Guerra Routine gynecological examination 06/30/2009 09/13/2015 Overview: [facility] [place] Morbid obesity 06/30/2009 09/13/2015 Insomnia 06/30/2009 09/13/2015 Attention deficit disorder 07/14/2007 0 08/29/2016 Overview: Controlled substance agreement-03/19/2015 Adjustment disorder with depressed mood 07/14/2007 08/29/2016 Seborrheic dermatitis, unspecified 06/12/2007 08/29/2016 Unspecified adjustment reaction 12/19/2006 07/14/2007 documented as of this encounter (statuses as of 05/23/2023) [facility] History of Past illness Narrative* Problem Noted Date Diagnosed Date Resolved Date Iron deficiency 08/29/2016 12/04/2019 UTI (urinary tract infection ) in , antepartum 02/16/2016 02/16/2016 Urgency of urination 01/19/2016 017 Frequency of micturition 01/19/2016 Trichomonal vaginitis during in second trimester 11/28/2015 08/29/2016 Overview: November 28, 2015 positive trich was negative a month ago, informed patient of STD and she and and any partners need treated. Consider additional STD testing at next visit and Recommend retesting in 6 weeks Lian Queen MD January 03, 2016 Still + trich treat 2000mg flagyl daily x 7 days. Carlie Campbell MD 02/13/16 Still pos trich. Rx tinizadole. Kimberly Nova, CERTIFIED CODING SPECIALIST March 13, 2016 Neg. trich. Carlie Campbell MD History of gastric bypass 09/08/2015 History of delivery , currently 09/08/2015 05/07/2016 Overview: 09/08/2015 Pt had a previous C section by Dr Zamarripa. She is considering a vs repeat C section by Dr Campbell.TKRN 09/08/2015W C section report states CPD and failure to progress as reason for C Section.TKRN September 15, 2015 Patient not interested in TOLAC, desires repeat c/s. Carlie Campbell MD January 30, 2016 Desires repeat c/s and tubal. R/B/A to sterilization reviewed, title 19 signed. Carlie Campbell MD Tobacco use in 09/08/2015 Overview: 09/08/2015Pt smokes 1/2 pack a day of cigarettes. Discussed risks of smoking during . Advised pt to quit.TKRN H/O macrosomia in in prior , currently 09/08/2015 08/29/2016 Overview: 09/08/2015 Pt's previous lavell birthweight was 9#14oz. TKRN Patient requested diagnostic testing 09/08/2015 11/21/2015 Overview: 09/08/2015Pt desires nuchal ultrasound with sequential testing. TKRN History of kidney stones 09/08/2015 Marijuana abuse 04/27/2015 08/29/2016 Recurrent UTI (urinary tract infection) complicating 07/22/2014 08/29/2016 Overview: November 28, 2015 Recommend daily antibiotic Lian Queen MD November 21, 2015 Klebsiella UTI and treated with septra. Rpt urine culture 4 weeks. Kimberly Nova CNP January 03, 2016 Consider doing cath specimens for her as suspect low colony counts may be contamination. Carlie Campbell MD Kidney stones 07/22/2014 09/13/2015 Thrombosed external hemorrhoid 08/14/2013 09/13/2015 Routine general medical exam ination at a health care facility 06/30/2009 09/13/2015 Overview: 06/30/2009, from Dr. Guerra Routine gynecological examination 06/30/2009 09/13/2015 Overview: [facility] [place] Morbid obesity 06/30/2009 09/13/2015 Insomnia 06/30/2009 09/13/2015 Attention deficit disorder 07/14/2007 0 08/29/2016 Overview: Controlled substance agreement-03/19/2015 Adjustment disorder with depressed mood 07/14/2007 08/29/2016 Seborrheic dermatitis, unspecified 06/12/2007 08/29/2016 Unspecified adjustment reaction 12/19/2006 07/14/2007 documented as of this encounter (statuses as of 05/29/2023) [facility] History of Past illness Narrative* Problem Noted Date Diagnosed Date Resolved Date Iron deficiency 08/29/2016 12/04/2019 UTI (urinary tract infection ) in , antepartum 02/16/2016 02/16/2016 Urgency of urination 01/19/2016 017 Frequency of micturition 01/19/2016 Trichomonal vaginitis during in second trimester 11/28/2015 08/29/2016 Overview: November 28, 2015 positive trich was negative a month ago, informed patient of STD and she and and any partners need treated. Consider additional STD testing at next visit and Recommend retesting in 6 weeks Lian Queen MD January 03, 2016 Still + trich treat 2000mg flagyl daily x 7 days. Carlie Campbell MD 02/13/16 Still pos trich. Rx tinizadole. Kimberly Nova CNP March 13, 2016 Neg. trich. Carlie Campbell MD History of gastric bypass 09/08/2015 History of delivery , currently 09/08/2015 05/07/2016 Overview: 09/08/2015 Pt had a previous C section by Dr Zamarripa. She is considering a vs repeat C section by Dr Campbell.TKRN 09/08/2015W C section report states CPD and failure to progress as reason for C Section.TKRN September 15, 2015 Patient not interested in TOLAC, desires repeat c/s. Carlie Campbell MD January 30, 2016 Desires repeat c/s and tubal. R/B/A to sterilization reviewed, title 19 signed. Carlie Campbell MD Tobacco use in 09/08/2015 Overview: 09/08/2015Pt smokes 1/2 pack a day of cigarettes. Discussed risks of smoking during . Advised pt to quit.TKRN H/O macrosomia in infant in prior , currently 09/08/2015 08/29/2016 Overview: 09/08/2015 Pt's previous lavell birthweight was 9#14oz. TKRN Patient requested diagnostic testing 09/08/2015 11/21/2015 Overview: 09/08/2015Pt desires nuchal ultrasound with sequential testing. TKRN History of kidney stones 09/08/2015 Marijuana abuse 04/27/2015 08/29/2016 Recurrent UTI (urinary tract infection) complicating 07/22/2014 08/29/2016 Overview: November 28, 2015 Recommend daily antibiotic Lian Queen MD November 21, 2015 Klebsiella UTI and treated with septra. Rpt urine culture 4 weeks. Kimberly Nova CNP January 03, 2016 Consider doing cath specimens for her as suspect low colony counts may be contamination. Carlie Campbell MD Kidney stones 07/22/2014 09/13/2015 Thrombosed external hemorrhoid 08/14/2013 09/13/2015 Routine general medical exam ination at a health care facility 06/30/2009 09/13/2015 Overview: 06/30/2009, from Dr. Guerra Routine gynecological examination 06/30/2009 09/13/2015 Overview: [facility] [place] Morbid obesity 06/30/2009 09/13/2015 Insomnia 06/30/2009 09/13/2015 Attention deficit disorder 07/14/2007 0 08/29/2016 Overview: Controlled substance agreement-03/19/2015 Adjustment disorder with depressed mood 07/14/2007 08/29/2016 Seborrheic dermatitis, unspecified 06/12/2007 08/29/2016 Unspecified adjustment reaction 12/19/2006 07/14/2007 documented as of this encounter (statuses as of 05/29/2023) [facility] History of Past illness Narrative* Problem Noted Date Diagnosed Date Resolved Date Iron deficiency 08/29/2016 12/04/2019 UTI (urinary tract infection ) in , antepartum 02/16/2016 02/16/2016 Urgency of urination 01/19/2016 017 Frequency of micturition 01/19/2016 Trichomonal vaginitis during in second trimester 11/28/2015 08/29/2016 Overview: November 28, 2015 positive trich was negative a month ago, informed patient of STD and she and and any partners need treated. Consider additional STD testing at next visit and Recommend retesting in 6 weeks Lian Queen MD January 03, 2016 Still + trich treat 2000mg flagyl daily x 7 days. Carlie Campbell MD 02/13/16 Still pos trich. Rx tinizadole. Kimberly Nova CNP March 13, 2016 Neg. trich. Carlie Campbell MD History of gastric bypass 09/08/2015 History of delivery , currently 09/08/2015 05/07/2016 Overview: 09/08/2015 Pt had a previous C section by Dr Zamarripa. She is considering a vs repeat C section by Dr Campbell.TKRN 09/08/2015W C section report states CPD and failure to progress as reason for C Section.TKRN September 15, 2015 Patient not interested in TOLAC, desires repeat c/s. Carlie Campbell MD January 30, 2016 Desires repeat c/s and tubal. R/B/A to sterilization reviewed, title 19 signed. Carlie Campbell MD Tobacco use in 09/08/2015 Overview: 09/08/2015Pt smokes 1/2 pack a day of cigarettes. Discussed risks of smoking during . Advised pt to quit.TKRN H/O macrosomia in in prior , currently 09/08/2015 08/29/2016 Overview: 09/08/2015 Pt's previous lavell birthweight was 9#14oz. TKRN Patient requested diagnostic testing 09/08/2015 11/21/2015 Overview: 09/08/2015Pt desires nuchal ultrasound with sequential testing. TKRN History of kidney stones 09/08/2015 Marijuana abuse 04/27/2015 08/29/2016 Recurrent UTI (urinary tract infection) complicating 07/22/2014 08/29/2016 Overview: November 28, 2015 Recommend daily antibiotic Lina Queen MD November 21, 2015 Klebsiella UTI and treated with septra. Rpt urine culture 4 weeks. Kimberly Nova CNP January 03, 2016 Consider doing cath specimens for her as suspect low colony counts may be contamination. Carlie Campbell MD Kidney stones 07/22/2014 09/13/2015 Thrombosed external hemorrhoid 08/14/2013 09/13/2015 Routine general medical exam ination at a health care facility 06/30/2009 09/13/2015 Overview: 06/30/2009, from Dr. Guerra Routine gynecological examination 06/30/2009 09/13/2015 [facility]: [facility] [place] Morbid obesity 06/30/2009 09/13/2015 Insomnia 06/30/2009 09/13/2015 Attention deficit disorder 07/14/2007 0 08/29/2016 Overview: Controlled substance agreement-03/19/2015 Adjustment disorder with depressed mood 07/14/2007 08/29/2016 Seborrheic dermatitis, unspecified 06/12/2007 08/29/2016 Unspecified adjustment reaction 12/19/2006 07/14/2007 documented as of this encounter (statuses as of 05/30/2023) [facility] History of Past illness Narrative* Problem Noted Date Diagnosed Date Resolved Date Iron deficiency 08/29/2016 12/04/2019 UTI (urinary tract infection ) in , antepartum 02/16/2016 02/16/2016 Urgency of urination 01/19/2016 017 Frequency of micturition 01/19/2016 Trichomonal vaginitis during in second trimester 11/28/2015 08/29/2016 Overview: November 28, 2015 positive trich was negative a month ago, informed patient of STD and she and and any partners need treated. Consider additional STD testing at next visit and Recommend retesting in 6 weeks Lian Queen MD January 03, 2016 Still + trich treat 2000mg flagyl daily x 7 days. Carlie Campbell MD 02/13/16 Still pos trich. Rx tinizadole. Kimberly Nova, JESICA March 13, 2016 Neg. trich. Carlie Campbell MD History of gastric bypass 09/08/2015 History of delivery , currently 09/08/2015 05/07/2016 Overview: 09/08/2015 Pt had a previous C section by Dr Zamarripa. She is considering a vs repeat C section by Dr Campbell.TKRN 09/08/2015[facility] C section report states CPD and failure to progress as reason for C Section.TKRN September 15, 2015 Patient not interested in TOLAC, desires repeat c/s. Carlie Campbell MD January 30, 2016 Desires repeat c/s and tubal. R/B/A to sterilization reviewed, title 19 signed. Carlie Campbell MD Tobacco use in 09/08/2015 Overview: 09/08/2015Pt smokes 1/2 pack a day of cigarettes. Discussed risks of smoking during . Advised pt to quit.TKRN H/O macrosomia in infant in prior , currently 09/08/2015 08/29/2016 Overview: 09/08/2015 Pt's previous lavell birthweight was 9#14oz. TKRN Patient requested diagnostic testing 09/08/2015 11/21/2015 Overview: 09/08/2015Pt desires nuchal ultrasound with sequential testing. TKRN History of kidney stones 09/08/2015 Marijuana abuse 04/27/2015 08/29/2016 Recurrent UTI (urinary tract infection) complicating 07/22/2014 08/29/2016 Overview: November 28, 2015 Recommend daily antibiotic Lian Queen MD November 21, 2015 Klebsiella UTI and treated with septra. Rpt urine culture 4 weeks. Kimberly Nova, JESICA January 03, 2016 Consider doing cath specimens for her as suspect low colony counts may be contamination. Carlie Campbell MD Kidney stones 07/22/2014 09/13/2015 Thrombosed external hemorrhoid 08/14/2013 09/13/2015 Routine general medical exam ination at a health care facility 06/30/2009 09/13/2015 Overview: 06/30/2009, from Dr. Guerra Routine gynecological examination 06/30/2009 09/13/2015 Overview: [facility] [place] Morbid obesity 06/30/2009 09/13/2015 Insomnia 06/30/2009 09/13/2015 Attention deficit disorder 07/14/2007 0 08/29/2016 Overview: Controlled substance agreement-03/19/2015 Adjustment disorder with depressed mood 07/14/2007 08/29/2016 Seborrheic dermatitis, unspecified 06/12/2007 08/29/2016 Unspecified adjustment reaction 12/19/2006 07/14/2007 documented as of this encounter (statuses as of 07/01/2023) [facility] History of Past illness Narrative* Problem Noted Date Diagnosed Date Resolved Date Iron deficiency 08/29/2016 12/04/2019 UTI (urinary tract infection ) in , antepartum 02/16/2016 02/16/2016 Urgency of urination 01/19/2016 017 Frequency of micturition 01/19/2016 Trichomonal vaginitis during in second trimester 11/28/2015 08/29/2016 Overview: November 28, 2015 positive trich was negative a month ago, informed patient of STD and she and and any partners need treated. Consider additional STD testing at next visit and Recommend retesting in 6 weeks Lian Queen MD January 03, 2016 Still + trich treat 2000mg flagyl daily x 7 days. Carlie Campbell MD 02/13/16 Still pos trich. Rx tinizadole. Kimberly Nova, JESICA March 13, 2016 Neg. trich. Carlie Campbell MD History of gastric bypass 09/08/2015 History of delivery , currently 09/08/2015 05/07/2016 Overview: 09/08/2015 Pt had a previous C section by Dr Zamarripa. She is considering a vs repeat C section by Dr Campbell.TKRN 09/08/2015[facility] C section report states CPD and failure to progress as reason for C Section.TKRN September 15, 2015 Patient not interested in TOLAC, desires repeat c/s. Carlie Campbell MD January 30, 2016 Desires repeat c/s and tubal. R/B/A to sterilization reviewed, title 19 signed. Carlie Campbell MD Tobacco use in 09/08/2015 Overview: 09/08/2015Pt smokes 1/2 pack a day of cigarettes. Discussed risks of smoking during . Advised pt to quit.TKRN H/O macrosomia in in prior , currently 09/08/2015 08/29/2016 Overview: 09/08/2015 Pt's previous lavell birthweight was 9#14oz. TKRN Patient requested diagnostic testing 09/08/2015 11/21/2015 Overview: 09/08/2015Pt desires nuchal ultrasound with sequential testing. TKRN History of kidney stones 09/08/2015 Marijuana abuse 04/27/2015 08/29/2016 Recurrent UTI (urinary tract infection) complicating 07/22/2014 08/29/2016 Overview: November 28, 2015 Recommend daily antibiotic Lian Queen MD November 21, 2015 Klebsiella UTI and treated with septra. Rpt urine culture 4 weeks. Kimberly Nova CNP January 03, 2016 Consider doing cath specimens for her as suspect low colony counts may be contamination. Carlie Campbell MD Kidney stones 07/22/2014 09/13/2015 Thrombosed external hemorrhoid 08/14/2013 09/13/2015 Routine general medical exam ination at a health care facility 06/30/2009 09/13/2015 Overview: 06/30/2009, from Dr. Guerra Routine gynecological examination 06/30/2009 09/13/2015 Overview: [facility] [place] Morbid obesity 06/30/2009 09/13/2015 Insomnia 06/30/2009 09/13/2015 Attention deficit disorder 07/14/2007 0 08/29/2016 Overview: Controlled substance agreement-03/19/2015 Adjustment disorder with depressed mood 07/14/2007 08/29/2016 Seborrheic dermatitis, unspecified 06/12/2007 08/29/2016 Unspecified adjustment reaction 12/19/2006 07/14/2007 documented as of this encounter (statuses as of 07/18/2023) [facility]No [facility]: [facility]* Diagnosis Onset Date Resolution Status Hydronephrosis acute Kidney calculi acute Ureteral calculus acute [facility] Work Phone: evaluation note* Diagnosis RLS (restless legs syndrome) Restless legs syndrome (RLS) documented in this encounter [facility] note* Diagnosis Other vitamin B12 deficiency anemia- Primary documented in this encounter [facility] note* Diagnosis Vaginal discharge- Primary Leukorrhea, not specified as infective IUD (intrauterine device) in place Presence of intrauterine contraceptive device [facility]* Diagnosis History of Angelika-en-Y gastric bypass- Primary Bariatric surgery status Vitamin D deficiency Unspecified vitamin D deficiency Folic acid deficiency (non anemic) Other B-complex deficiencies Anemia due to vitamin B12 deficiency, unspecified B12 deficiency type [facility] this [facility]* Diagnosis Vitamin D deficiency- Primary Unspecified vitamin D deficiency History of Angelika-en-Y gastric bypass Bariatric surgery status documented in this encounter [facility] note* Diagnosis Vaginal discharge- Primary Leukorrhea, not specified as infective Vaginal pruritus Pruritus of genital organs documented [facility]* Diagnosis Other vitamin B12 deficiency anemia- Primary History of gastric bypass Bariatric surgery status documented in this encounter [facility] note* Diagnosis Chronic insomnia Insomnia, unspecified documented in this encounter [facility] note* Diagnosis Other vitamin B12 deficiency anemia- Primary History of gastric bypass Bariatric surgery status documented in this encounter [facility] note* Diagnosis Onset Date Resolution Status Ureteral calculus resolved [facility] Work Phone: evaluation note* Diagnosis GERD without esophagitis- Primary Esophageal reflux RLS (restless legs syndrome) Restless legs syndrome (RLS) Gastroenteritis Other and unspecified noninfectious gastroenteritis and colitis Acne comedone Other acne Chronic insomnia Insomnia, unspecified FLOR (obstructive sleep apnea) Obstructive sleep apnea (adult) (pediatric) Vitamin D deficiency Unspecified vitamin D deficiency documented in this encounter [facility] note* Diagnosis Other vitamin B12 deficiency anemia- Primary History of gastric bypass Bariatric surgery status documented in this encounter [facility] note* Diagnosis Chronic insomnia Insomnia, unspecified [facility]* Diagnosis Other vitamin B12 deficiency anemia- Primary History of gastric bypass Bariatric surgery status [facility]* Diagnosis RLS (restless legs syndrome) Restless legs syndrome (RLS) documented in this encounter [facility] note* Diagnosis RLS (restless legs syndrome) Restless legs syndrome (RLS) [facility]* Diagnosis Other vitamin B12 deficiency anemia- Primary documented in this encounter [facility] note* Diagnosis Vaginal discharge- Primary Leukorrhea, not specified as infective Vaginal odor Unspecified symptom associated with female genital organs documented in this encounter [facility] note* Diagnosis BV (bacterial vaginosis)- Primary Vaginitis and vulvovaginitis, unspecified [facility]* Diagnosis Seizures (HCC)- Primary Other convulsions RLS (restless legs syndrome) Restless legs syndrome (RLS) FLOR (obstructive sleep apnea) Obstructive sleep apnea (adult) (pediatric) Other vitamin B12 deficiency anemia Folic acid deficiency (non anemic) Other B-complex deficiencies Other specified nutritional anemias Vitamin D deficiency Unspecified vitamin D deficiency History of depression Personal history of other mental disorder Poisoning by vitamin D, undetermined intent, sequela Folate deficiency Other B-complex deficiencies History of gastric bypass Bariatric surgery status Hair loss Alopecia, unspecified Hyperbilirubinemia Jaundice, unspecified, not of documented in this encounter [facility] note* Diagnosis Elevated TSH- Primary Nonspecific abnormal results of thyroid function study documented in this encounter [facility] note* Diagnosis Encounter for gynecological examination (general) (routine) without abnormal findings- Primary Screening for STD (sexually transmitted disease) Screening examination for venereal disease Intrauterine contraceptive device threads lost, initial encounter documented in this encounter [facility] note* Diagnosis Other vitamin B12 deficiency anemia- Primary History of gastric bypass Bariatric surgery status [facility] Diagnosis RLS (restless legs syndrome) Restless legs syndrome (RLS) [facility]* Diagnosis Other vitamin B12 deficiency anemia- Primary History of gastric bypass Bariatric surgery status [facility]* Diagnosis RLS (restless legs syndrome)- Primary Restless legs syndrome (RLS) Seizures (HCC) Other convulsions FLOR (obstructive sleep apnea) Obstructive sleep apnea (adult) (pediatric) Other vitamin B12 deficiency anemia Folic acid deficiency (non anemic) Other B-complex deficiencies History of Angelika-en-Y gastric bypass Bariatric surgery status Vitamin D deficiency Unspecified vitamin D deficiency Acne comedone Other acne [facility] Diagnosis RLS (restless legs syndrome) Restless legs syndrome (RLS) [facility] Diagnosis RLS (restless legs syndrome) Restless legs syndrome (RLS) [facility]* Diagnosis Vaginal discharge- Primary Leukorrhea, not specified as infective [facility]* Diagnosis Vaginal pain- Primary Unspecified symptom associated with female genital organs Vaginal discharge Leukorrhea, not specified as infective Cervical cancer screening Screening for malignant neoplasm of the cervix Special screening examination for human papillomavirus (HPV) [facility]* Diagnosis GERD without esophagitis- Primary Esophageal reflux Seizures (HCC) Other convulsions FLOR (obstructive sleep apnea) Obstructive sleep apnea (adult) (pediatric) RLS (restless legs syndrome) Restless legs syndrome (RLS) History of recurrent UTI (urinary tract infection) Personal history of urinary (tract) infection History of herpes genitalis Personal history of other infectious and parasitic disease Tobacco use Tobacco use disorder Other vitamin B12 deficiency anemia [facility] Diagnosis 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 Cervical high risk human papillomavirus (HPV) DNA test positive [facility]* Diagnosis RLS (restless legs syndrome) Restless legs syndrome (RLS) Other vitamin B12 deficiency anemia [facility] Diagnosis Other vitamin B12 deficiency anemia RLS (restless legs syndrome) Restless legs syndrome (RLS) [facility]* Diagnosis RLS (restless legs syndrome) Restless legs syndrome (RLS) [facility] Diagnosis Other vitamin B12 deficiency anemia [facility] Diagnosis Pre-op evaluation- Primary Preoperative examination, unspecified FLOR (obstructive sleep apnea) Obstructive sleep apnea (adult) (pediatric) Seizures (HCC) Other convulsions History of Angelika-en-Y gastric bypass Bariatric surgery status Anemia due to vitamin B12 deficiency, unspecified B12 deficiency type Tobacco use Tobacco use disorder Carpal tunnel syndrome of left wrist Carpal tunnel syndrome RLS (restless legs syndrome) Restless legs syndrome (RLS) Other vitamin B12 deficiency anemia [facility] Diagnosis Pre-op evaluation- Primary Preoperative examination, unspecified FLOR (obstructive sleep apnea) Obstructive sleep apnea (adult) (pediatric) Seizures (HCC) Other convulsions History of Angelika-en-Y gastric bypass Bariatric surgery status Anemia due to vitamin B12 deficiency, unspecified B12 deficiency type Tobacco use Tobacco use disorder Carpal tunnel syndrome of left wrist Carpal tunnel syndrome RLS (restless legs syndrome) Restless legs syndrome (RLS) [facility]* Diagnosis Pre-op evaluation- Primary Preoperative examination, unspecified FLOR (obstructive sleep apnea) Obstructive sleep apnea (adult) (pediatric) Seizures (HCC) Other convulsions History of Angelika-en-Y gastric bypass Bariatric surgery status Anemia due to vitamin B12 deficiency, unspecified B12 deficiency type Tobacco use Tobacco use disorder Carpal tunnel syndrome of left wrist Carpal tunnel syndrome Thumb tendonitis Other tenosynovitis of hand and wrist [facility]* Diagnosis Pre-op evaluation- Primary Preoperative examination, unspecified FLOR (obstructive sleep apnea) Obstructive sleep apnea (adult) (pediatric) Seizures (HCC) Other convulsions History of Angelika-en-Y gastric bypass Bariatric surgery status Anemia due to vitamin B12 deficiency, unspecified B12 deficiency type Tobacco use Tobacco use disorder Carpal tunnel syndrome of left wrist Carpal tunnel syndrome GERD without esophagitis- Primary Esophageal reflux RLS (restless legs syndrome) Restless legs syndrome (RLS) Seizures (HCC) Other convulsions Seizure disorder (HCC) Unspecified epilepsy without mention of intractable epilepsy Screening for depression Encounter for screening examination for other mental health and behavioral disorders Other vitamin B12 deficiency anemia History of Angelika-en-Y gastric bypass Bariatric surgery status [facility] Diagnosis Pre-op evaluation- Primary Preoperative examination, unspecified FLOR (obstructive sleep apnea) Obstructive sleep apnea (adult) (pediatric) Seizures (HCC) Other convulsions History of Angelika-en-Y gastric bypass Bariatric surgery status Anemia due to vitamin B12 deficiency, unspecified B12 deficiency type Tobacco use Tobacco use disorder Carpal tunnel syndrome of left wrist Carpal tunnel syndrome Lumbar radiculopathy- Primary Thoracic or lumbosacral neuritis or radiculitis, unspecified [facility] Diagnosis Pre-op evaluation- Primary Preoperative examination, unspecified FLOR (obstructive sleep apnea) Obstructive sleep apnea (adult) (pediatric) Seizures (HCC) Other convulsions History of Angelika-en-Y gastric bypass Bariatric surgery status Anemia due to vitamin B12 deficiency, unspecified B12 deficiency type Tobacco use Tobacco use disorder Carpal tunnel syndrome of left wrist Carpal tunnel syndrome Seizure disorder (HCC) Unspecified epilepsy without mention of intractable epilepsy [facility] Diagnosis Pre-op evaluation- Primary Preoperative examination, unspecified FLOR (obstructive sleep apnea) Obstructive sleep apnea (adult) (pediatric) Seizures (HCC) Other convulsions History of Angelika-en-Y gastric bypass Bariatric surgery status Anemia due to vitamin B12 deficiency, unspecified B12 deficiency type Tobacco use Tobacco use disorder Carpal tunnel syndrome of left wrist Carpal tunnel syndrome Recurrent UTI (urinary tract infection)- Primary Urinary tract infection, site not specified RLS (restless legs syndrome) Restless legs syndrome (RLS) [facility]* Diagnosis Pre-op evaluation- Primary Preoperative examination, unspecified FLOR (obstructive sleep apnea) Obstructive sleep apnea (adult) (pediatric) Seizures (HCC) Other convulsions History of Angelika-en-Y gastric bypass Bariatric surgery status Anemia due to vitamin B12 deficiency, unspecified B12 deficiency type Tobacco use Tobacco use disorder Carpal tunnel syndrome of left wrist Carpal tunnel syndrome Lumbar radiculopathy- Primary Thoracic or lumbosacral neuritis or radiculitis, unspecified RLS (restless legs syndrome) Restless legs syndrome (RLS) Seizures (HCC) Other convulsions Carpal tunnel syndrome, unspecified laterality FLOR (obstructive sleep apnea) Obstructive sleep apnea (adult) (pediatric) Other vitamin B12 deficiency anemia GERD without esophagitis Esophageal reflux Hyperbilirubinemia Jaundice, unspecified, not of Other specified nutritional anemias Vitamin D deficiency Unspecified vitamin D deficiency Folic acid deficiency (non anemic) Other B-complex deficiencies History of Angelika-en-Y gastric bypass Bariatric surgery status Frequent UTI Urinary tract infection, site not specified Screening, heart disease, ischemic Screening for ischemic heart disease [facility]* Diagnosis Pre-op evaluation- Primary Preoperative examination, unspecified FLOR (obstructive sleep apnea) Obstructive sleep apnea (adult) (pediatric) Seizures (HCC) Other convulsions History of Angelika-en-Y gastric bypass Bariatric surgery status Anemia due to vitamin B12 deficiency, unspecified B12 deficiency type Tobacco use Tobacco use disorder Carpal tunnel syndrome of left wrist Carpal tunnel syndrome Low iron- Primary Iron deficiency anemia, unspecified [facility] Diagnosis Pre-op evaluation- Primary Preoperative examination, unspecified FLOR (obstructive sleep apnea) Obstructive sleep apnea (adult) (pediatric) Seizures (HCC) Other convulsions History of Angelika-en-Y gastric bypass Bariatric surgery status Anemia due to vitamin B12 deficiency, unspecified B12 deficiency type Tobacco use Tobacco use disorder Carpal tunnel syndrome of left wrist Carpal tunnel syndrome Low iron- Primary Iron deficiency anemia, unspecified documented in this encounter [facility] for referral (narrative)* Diagnostic Procedure Only (Routine) - Pending Review Specialty Diagnoses / Procedures Referred By Isaac ma Referred To Contact US IMAGING Diagnoses Intrauterine contraceptive device threads lost, initial encounter Procedures US FEMALE PELVIS TRANSVAG US TRANSVAGINAL Tomasa Alarcon APRN.CNM [address] [place] [address] Us Imaging Referral ID Status Reason Start Date Expiration Date Visits Requested Visits Authorized [id number] Pending Review Auto-Generat ed Referral 06/05/2022 07/05/2023 1 1 [facility] for referral (narrative)* Outpatient Procedure (Routine) - Pending Review Specialty Diagnoses / Procedures Referred By Isaac ma Referred To Contact [facility] Diagnoses ASCUS with positive high risk HPV cervical Procedures COLPOSCOPY COLPOSCOPY CERVIX BX CERVIX & ENDOCRV Evelin Pratt APRN.CNP [address] [place] [address] [facility] [address] [place] [address] Referral ID Status Reason Start Date Expiration Date Visits Requested Visits Authorized [id number] Pending Review Auto-Generat ed Referral 05/29/2023 05/28/2024 1 1 [facility] for referral (narrative)No reason for referral information availableWMer[facility] Work Phone: Summary Purpose Family History Relationship Condition Age at Onset Recorded Date/T corrine Not Specified Malignant neoplasm Unknown Advance Directives Advance Directive Response Recorded Date/ Time Advance Directives No April 23, 2016 3:00pm Living Will No June 22, 2021 11:03am Power of Fan Engine Engineer No June 22 11:03am Advance Directive Response Recorded Date/ Time Advance Directives No April 23, 2016 3:00pm Living Will No June 22, 2021 6:42pm Power of Fan Engine Engineer No June 22 6:42pm Documents on File Type Date Recorded Patient Credit Risk 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 Manager Expl anation Advance Directive(s) 03/11/2020 8:21 AM Advance Directive(s) 02/09/2020 1:29 PM Advance Directive(s) 04/08/2018 6:25 AM Advance Directive Response Recorded Date/ Time Advance Directives No April 23, 2016 3:00pm Living Will No September 07, 2021 2 :12pm Power of Fan Engine Engineer No September 07, 2021 2:12pm Advance Directive Response Recorded Date/ Time Advance Directives No April 23, 2016 2:00pm Living Will No September 07, 2021 1 :12pm Power of Fan Engine Engineer No September 07, 2021 1:12pm Advance Directive Response Recorded Date/ Time Advance Directives No April 28, 2024 1:10pm Living Will No March 03 10:13am Power of Fan Engine Engineer No March 03, 2024 10:13am Advance Directive Response Recorded Date/ Time Advance Directives No April 28, 2024 1:10pm Procedure Findings Note HNO ID: [id number] Author: Reid jackson (Kellee) Álvaro Service: ? Author Type: Nurse Marketing Sales Consultant Type: Anesthesia Procedure Notes Filed: 02/11/2020 7:56 AM Note Text: ANESTHESIOLOGY PROCEDURE NOTE Airway General Information Procedure Start Time/Medication Administration: 02/11/2020 7:50 AM Patient location during procedure: OR Patient identity confirmed: arm band Staffing Performed by: PASTEURIZER Indications and Patient Condition Preoxygenated: yes Patient position: sniffing Indications for airway management: anesthesia Method: asleep Final Airway Details Final airway type: endotracheal airway Final Endotracheal Airway: ETT Cuffed: yes Successful intubation technique: direct laryngoscopy Blade size: #3 ETT size (mm): 7.0 Measurement (cm): 21 Cormack-Lehane Classification: grade IIa - partial view of glottis Number of attempts at approach: 1 SIGNATURE: Yudi Rea APRN.CRNA PATIENT NAME: Citlali Beckwith DATE: February 11, 2020 TIME: 7:56 AM CSN: [id number] Chief Complaint and Reason for Visit Chief Complaint flank Chief Complaint flank RIGHT URETERAL CALCULUS Reason for Visit Hydronephrosis Kidney calculi Ureteral calculus Chief Complaint flank RIGHT URETERAL CALCULUS RIGHT URETERAL CALCULUS ESWL RIGHT Reason for Visit Ureteral calculus Chief Complaint flank RIGHT URETERAL CALCULUS RIGHT URETERAL CALCULUS ESWL RIGHT KUB- KIDNEY CALC. Reason for Visit Ureteral calculus Chief Complaint FLANK PAIN, KIDNEY S TONE KUB Chief Complaint Admit Date BACK PAIN March 03, 2024 9 :13am LUMBAR RADICULOPATHY April 13, 2024 8:15am LUMBAR RADICULOPATHY, AQUA THERAPY. RX H ERE April 16, 2024 5:30pm LUMBAR SPINE May 05, 2024 8 :12am RM 1 May 05, 2024 8 :33am Reason for Visit Admit Date Lumbar disc herniation May 05 8:12am Chief Complaint Admit Date lumbar spine September 08, 2024 1:35 pm Chief Complaint Admit Date lumbar spine September 08, 2024 1:35 pm LABS September 23, 2024 2:18 pm Reason for Visit Admit Date Lumbar disc herniation with radiculopath y September 08, 2024 1:35pm Medications Administered Section Active Administered Medications - up to 3 most recent administrations Medication Order MAR Action Action Date Dose Rate Site cyanocobalamin 1,000 mcg injection 1,000 mcg, INTRAMUSCULAR, EVERY 1 MONTH, 12 doses, First dose on 12/07/20 at 0000, Last dose on Alaina 11/02/21 at 0000 Given 07/10/2021 1:35 PM EDT 1,000 mcg Deltoid, Right Given 06/09/2021 1:29 PM EST 1,000 mcg De ltoid, Right Given 04/12/2021 1:09 PM EST 1,000 mcg De ltoid, Right Active Administered Medications - up to 3 most recent administrations Medication Order MAR Action Action Date Dose Rate Site cyanocobalamin 1,000 mcg injection 1,000 mcg, INTRAMUSCULAR, EVERY 1 MONTH, 4 doses, First dose (after last modification) on Sat08/04/21 at 0000, Last dose on Sat11/02/21 at 0000 Given 08/08/2021 1:26 PM EDT 1,000 mcg Deltoid, Left Active Administered Medications - up to 3 most recent administrations Medication Order MAR Action Action Date Dose Rate Site cyanocobalamin 1,000 mcg injection 1,000 mcg, INTRAMUSCULAR, EVERY 1 MONTH, 4 doses, First dose (after last modification) on Sat08/04/21 at 0000, Last dose on Sat11/02/21 at 0000 Given 09/08/2021 1:15 PM EDT 1,000 mcg Deltoid, Right Given 08/08/2021 1:26 PM EDT 1,000 mcg De ltoid, Left Active Administered Medications - up to 3 most recent administrations Medication Order MAR Action Action Date Dose Rate Site cyanocobalamin 1,000 mcg injection 1,000 mcg, INTRAMUSCULAR, EVERY 1 MONTH, 4 doses, First dose (after last modification) on Sat08/04/21 at 0000, Last dose on Sat11/02/21 at 0000 Given 10/06/2021 1:26 PM EDT 1,000 mcg Deltoid, Left Given 09/08/2021 1:15 PM EDT 1,000 mcg De ltoid, Right Given 08/08/2021 1:26 PM EDT 1,000 mcg De ltoid, Left Inactive Administered Medications - up to 3 most recent administrations Medication Order MAR Action Action Date Dose Rate Site cyanocobalamin 1,000 mcg injection 1,000 mcg, INTRAMUSCULAR, EVERY 1 MONTH, 4 doses, First dose (after last modification) on Sat08/04/21 at 0000, Last dose on Sat11/02/21 at 0000 Given 11/08/2021 1:19 PM EDT 1,000 mcg Deltoid, Right Given 10/06/2021 1:26 PM EDT 1,000 mcg De ltoid, Left Given 09/08/2021 1:15 PM EDT 1,000 mcg De ltoid, Right Active Administered Medications - up to 3 most recent administrations Medication Order MAR Action Action Date Dose Rate Site cyanocobalamin 1,000 mcg injection 1,000 mcg, INTRAMUSCULAR, EVERY 1 MONTH, 12 doses, First dose on Sat12/08/21 at 0000, Last dose on 11/03/22 at 0000 Given 12/08/2021 1:34 PM EDT 1,000 mcg Deltoid, Left Active Administered Medications - up to 3 most recent administrations Medication Order MAR Action Action Date Dose Rate Site cyanocobalamin 1,000 mcg injection 1,000 mcg, INTRAMUSCULAR, EVERY 1 MONTH, 12 doses, First dose on Sat12/08/21 at 0000, Last dose on Sat11/03/22 at 0000 Given 02/08/2022 1:26 PM EST 1,000 mcg Deltoid, Left Given 01/08/2022 1:05 PM EDT 1,000 mcg De ltoid, Right Given 12/08/2021 1:34 PM EDT 1,000 mcg De ltoid, Left Active Administered Medications - up to 3 most recent administrations Medication Order MAR Action Action Date Dose Rate Site cyanocobalamin 1,000 mcg injection 1,000 mcg, INTRAMUSCULAR, EVERY 1 MONTH, 12 doses, First dose on Sat12/08/21 at 0000, Last dose on Sat11/03/22 at 0000 Given 03/08/2022 1:33 PM EST 1,000 mcg Deltoid, Right Given 02/08/2022 1:26 PM EST 1,000 mcg De ltoid, Left Given 01/08/2022 1:05 PM EDT 1,000 mcg De ltoid, Right Active Administered Medications - up to 3 most recent administrations Medication Order MAR Action Action Date Dose Rate Site cyanocobalamin 1,000 mcg injection 1,000 mcg, INTRAMUSCULAR, EVERY 1 MONTH, 12 doses, First dose on Sat12/08/21 at 0000, Last dose on Sat11/03/22 at 0000 Given 04/10/2022 1:28 PM EST 1,000 mcg Deltoid, Left Given 03/08/2022 1:33 PM EST 1,000 mcg De ltoid, Right Given 02/08/2022 1:26 PM EST 1,000 mcg De ltoid, Left Active Administered Medications - up to 3 most recent administrations Medication Order MAR Action Action Date Dose Rate Site cyanocobalamin 1,000 mcg injection 1,000 mcg, INTRAMUSCULAR, EVERY 1 MONTH, 12 doses, First dose on Sat12/08/21 at 0000, Last dose on Sat11/03/22 at 0000 Given 05/11/2022 2:36 PM EST 1,000 mcg Deltoid, Right Given 04/10/2022 1:28 PM EST 1,000 mcg De ltoid, Left Given 03/08/2022 1:33 PM EST 1,000 mcg De ltoid, Right Active Administered Medications - up to 3 most recent administrations Medication Order MAR Action Action Date Dose Rate Site cyanocobalamin 1,000 mcg injection 1,000 mcg, INTRAMUSCULAR, EVERY 1 MONTH, 12 doses, First dose on Sat12/08/21 at 0000, Last dose on Sat11/03/22 at 0000 Given 06/08/2022 2:24 PM EST 1,000 mcg Deltoid, Left Given 05/11/2022 2:36 PM EST 1,000 mcg De ltoid, Right Given 04/10/2022 1:28 PM EST 1,000 mcg De ltoid, Left Active Administered Medications - up to 3 most recent administrations Medication Order MAR Action Action Date Dose Rate Site cyanocobalamin 1,000 mcg injection 1,000 mcg, INTRAMUSCULAR, EVERY 1 MONTH, 12 doses, First dose on Sat12/08/21 at 0000, Last dose on Sat11/03/22 at 0000 Given 07/09/2022 2:30 PM EDT 1,000 mcg Deltoid, Right Given 06/08/2022 2:24 PM EST 1,000 mcg De ltoid, Left Given 05/11/2022 2:36 PM EST 1,000 mcg De ltoid, Right Active Administered Medications - up to 3 most recent administrations Medication Order MAR Action Action Date Dose Rate Site cyanocobalamin 1,000 mcg injection 1,000 mcg, INTRAMUSCULAR, EVERY 1 MONTH, 12 doses, First dose on Sat12/08/21 at 0000, Last dose on Sat11/03/22 at 0000 Given 08/08/2022 2:23 PM EDT 1,000 mcg Deltoid, Left Given 07/09/2022 2:30 PM EDT 1,000 mcg De ltoid, Right Given 06/08/2022 2:24 PM EST 1,000 mcg De ltoid, Left Active Administered Medications - up to 3 most recent administrations Medication Order MAR Action Action Date Dose Rate Site cyanocobalamin 1,000 mcg injection 1,000 mcg, INTRAMUSCULAR, EVERY 1 MONTH, 12 doses, First dose on Sat12/08/21 at 0000, Last dose on Sat11/03/22 at 0000 Given 10/03/2022 11:14 AM EDT 1,000 mcg Deltoid, Left Given 09/07/2022 2:29 PM EDT 1,000 mcg De ltoid, Right Given 08/08/2022 2:23 PM EDT 1,000 mcg De ltoid, Left Reason for Referral Specialty Diagnoses / Procedures Referred By Contac t Referred To Contact Diagnoses Acne Paul Ambrosio MD [address] [place] [address] Referral ID Status Reason Start Date Expiration Date V isits Requested Visits Authorized [id number] Authorized 10/03/2022 10/03/2025 1 1 Specialty Diagnoses / Procedures Referred By Contac t Referred To Contact Pain Management Diagnoses Lumbar radiculopathy Procedures CONSULT TO PAIN MGT OFFICE/OUTPATIENT NEW HIGH MDM 60 MINUTES Paul Kendrick MD [address] [place] [address] Referral ID Status Reason Start Date Expiration Date Visits Requested Visits Authorized [id number] Authorized PCP Requested Referral 03/03/2024 03/03/2025 1 1 Additional Source Comments INFORMATION SOURCE (unrecogn ized section and content) DATE CREATED AUTHOR 04/08/2018 [facility] DATE CREATED AUTHOR AUTHOR'S ORGANIZ ATION 01/04/2019 [facility] DATE CREATED AUTHOR AUTHOR'S ORGANIZ ATION 03/16/2020 [facility] DATE CREATED AUTHOR AUTHOR'S ORGANIZ ATION 09/29/2024 [facility] DATE CREATED AUTHOR AUTHOR'S ORGANIZ ATION 09/29/2024 [facility] Goals (unrecognized section and content) Goals may be documented in a n alternate sectionGoals may be documented in an alternate sectionGoals may be documented in an alternate sectionGoals may be documented in an alternate sectionGoals may be documented in an alternate sectionGoals may be documented in an alternate sectionGoals may be documented in an alternate section Source Comments (unrecognize d section and content) In the event this informatio n is protected by the Federal Confidentiality of Alcohol and Drug Abuse Patient Records regulations: The Federal rules restrict any use of the information to criminally investigate or prosecute any alcohol or drug abuse patient.[facility] the event this information is protected by the Federal Confidentiality of Alcohol and Drug Abuse Patient Records regulations: The Federal rules restrict any use of the information to criminally investigate or prosecute any alcohol or drug abuse patient.[facility]In the event this information is protected by the Federal Confidentiality of Alcohol and Drug Abuse Patient Records regulations: The Federal rules restrict any use of the information to criminally investigate or prosecute any alcohol or drug abuse patient.[facility]In the event this information is protected by the Federal Confidentiality of Alcohol and Drug Abuse Patient Records regulations: The Federal rules restrict any use of the information to criminally investigate or prosecute any alcohol or drug abuse patient.[facility]In the event this information is protected by the Federal Confidentiality of Alcohol and Drug Abuse Patient Records regulations: The Federal rules restrict any use of the information to criminally investigate or prosecute any alcohol or drug abuse patient.[facility]In the event this information is protected by the Federal Confidentiality of Alcohol and Drug Abuse Patient Records regulations: The Federal rules restrict any use of the information to criminally investigate or prosecute any alcohol or drug abuse patient.[facility]In the event this information is protected by the Federal Confidentiality of Alcohol and Drug Abuse Patient Records regulations: The Federal rules restrict any use of the information to criminally investigate or prosecute any alcohol or drug abuse patient.[facility]In the event this information is protected by the Federal Confidentiality of Alcohol and Drug Abuse Patient Records regulations: The Federal rules restrict any use of the information to criminally investigate or prosecute any alcohol or drug abuse patient.[facility]In the event this information is protected by the Federal Confidentiality of Alcohol and Drug Abuse Patient Records regulations: The Federal rules restrict any use of the information to criminally investigate or prosecute any alcohol or drug abuse patient.[facility]In the event this information is protected by the Federal Confidentiality of Alcohol and Drug Abuse Patient Records regulations: The Federal rules restrict any use of the information to criminally investigate or prosecute any alcohol or drug abuse patient.[facility]In the event this information is protected by the Federal Confidentiality of Alcohol and Drug Abuse Patient Records regulations: The Federal rules restrict any use of the information to criminally investigate or prosecute any alcohol or drug abuse patient.[facility]In the event this information is protected by the Federal Confidentiality of Alcohol and Drug Abuse Patient Records regulations: The Federal rules restrict any use of the information to criminally investigate or prosecute any alcohol or drug abuse patient.[facility]In the event this information is protected by the Federal Confidentiality of Alcohol and Drug Abuse Patient Records regulations: The Federal rules restrict any use of the information to criminally investigate or prosecute any alcohol or drug abuse patient.[facility]In the event this information is protected by the Federal Confidentiality of Alcohol and Drug Abuse Patient Records regulations: The Federal rules restrict any use of the information to criminally investigate or prosecute any alcohol or drug abuse patient.[facility] HospitalIn the event this information is protected by the Federal Confidentiality of Alcohol and Drug Abuse Patient Records regulations: The Federal rules restrict any use of the information to criminally investigate or prosecute any alcohol or drug abuse patient.[facility] HospitalIn the event this information is protected by the Federal Confidentiality of Alcohol and Drug Abuse Patient Records regulations: The Federal rules restrict any use of the information to criminally investigate or prosecute any alcohol or drug abuse patient.[facility] HospitalIn the event this information is protected by the Federal Confidentiality of Alcohol and Drug Abuse Patient Records regulations: The Federal rules restrict any use of the information to criminally investigate or prosecute any alcohol or drug abuse patient.[facility] HospitalIn the event this information is protected by the Federal Confidentiality of Alcohol and Drug Abuse Patient Records regulations: The Federal rules restrict any use of the information to criminally investigate or prosecute any alcohol or drug abuse patient.[facility] HospitalIn the event this information is protected by the Federal Confidentiality of Alcohol and Drug Abuse Patient Records regulations: The Federal rules restrict any use of the information to criminally investigate or prosecute any alcohol or drug abuse patient.[facility] HospitalIn the event this information is protected by the Federal Confidentiality of Alcohol and Drug Abuse Patient Records regulations: The Federal rules restrict any use of the information to criminally investigate or prosecute any alcohol or drug abuse patient.[facility] HospitalIn the event this information is protected by the Federal Confidentiality of Alcohol and Drug Abuse Patient Records regulations: The Federal rules restrict any use of the information to criminally investigate or prosecute any alcohol or drug abuse patient.[facility] HospitalIn the event this information is protected by the Federal Confidentiality of Alcohol and Drug Abuse Patient Records regulations: The Federal rules restrict any use of the information to criminally investigate or prosecute any alcohol or drug abuse patient.[facility] HospitalIn the event this information is protected by the Federal Confidentiality of Alcohol and Drug Abuse Patient Records regulations: The Federal rules restrict any use of the information to criminally investigate or prosecute any alcohol or drug abuse patient.[facility] HospitalIn the event this information is protected by the Federal Confidentiality of Alcohol and Drug Abuse Patient Records regulations: The Federal rules restrict any use of the information to criminally investigate or prosecute any alcohol or drug abuse patient.[facility] HospitalIn the event this information is protected by the Federal Confidentiality of Alcohol and Drug Abuse Patient Records regulations: The Federal rules restrict any use of the information to criminally investigate or prosecute any alcohol or drug abuse patient.[facility] HospitalIn the event this information is protected by the Federal Confidentiality of Alcohol and Drug Abuse Patient Records regulations: The Federal rules restrict any use of the information to criminally investigate or prosecute any alcohol or drug abuse patient.[facility] HospitalIn the event this information is protected by the Federal Confidentiality of Alcohol and Drug Abuse Patient Records regulations: The Federal rules restrict any use of the information to criminally investigate or prosecute any alcohol or drug abuse patient.[facility] HospitalIn the event this information is protected by the Federal Confidentiality of Alcohol and Drug Abuse Patient Records regulations: The Federal rules restrict any use of the information to criminally investigate or prosecute any alcohol or drug abuse patient.[facility] HospitalIn the event this information is protected by the Federal Confidentiality of Alcohol and Drug Abuse Patient Records regulations: The Federal rules restrict any use of the information to criminally investigate or prosecute any alcohol or drug abuse patient.[facility] HospitalIn the event this information is protected by the Federal Confidentiality of Alcohol and Drug Abuse Patient Records regulations: The Federal rules restrict any use of the information to criminally investigate or prosecute any alcohol or drug abuse patient.[facility] HospitalIn the event this information is protected by the Federal Confidentiality of Alcohol and Drug Abuse Patient Records regulations: The Federal rules restrict any use of the information to criminally investigate or prosecute any alcohol or drug abuse patient.[facility] HospitalIn the event this information is protected by the Federal Confidentiality of Alcohol and Drug Abuse Patient Records regulations: The Federal rules restrict any use of the information to criminally investigate or prosecute any alcohol or drug abuse patient.[facility] HospitalIn the event this information is protected by the Federal Confidentiality of Alcohol and Drug Abuse Patient Records regulations: The Federal rules restrict any use of the information to criminally investigate or prosecute any alcohol or drug abuse patient.[facility] HospitalIn the event this information is protected by the Federal Confidentiality of Alcohol and Drug Abuse Patient Records regulations: The Federal rules restrict any use of the information to criminally investigate or prosecute any alcohol or drug abuse patient.[facility]In the event this information is protected by the Federal Confidentiality of Alcohol and Drug Abuse Patient Records regulations: The Federal rules restrict any use of the information to criminally investigate or prosecute any alcohol or drug abuse patient.[facility] HospitalIn the event this information is protected by the Federal Confidentiality of Alcohol and Drug Abuse Patient Records regulations: The Federal rules restrict any use of the information to criminally investigate or prosecute any alcohol or drug abuse patient.[facility] HospitalIn the event this information is protected by the Federal Confidentiality of Alcohol and Drug Abuse Patient Records regulations: The Federal rules restrict any use of the information to criminally investigate or prosecute any alcohol or drug abuse patient.[facility]In the event this information is protected by the Federal Confidentiality of Alcohol and Drug Abuse Patient Records regulations: The Federal rules restrict any use of the information to criminally investigate or prosecute any alcohol or drug abuse patient.[facility] HospitalIn the event this information is protected by the Federal Confidentiality of Alcohol and Drug Abuse Patient Records regulations: The Federal rules restrict any use of the information to criminally investigate or prosecute any alcohol or drug abuse patient.[facility]In the event this information is protected by the Federal Confidentiality of Alcohol and Drug Abuse Patient Records regulations: The Federal rules restrict any use of the information to criminally investigate or prosecute any alcohol or drug abuse patient.[facility] HospitalIn the event this information is protected by the Federal Confidentiality of Alcohol and Drug Abuse Patient Records regulations: The Federal rules restrict any use of the information to criminally investigate or prosecute any alcohol or drug abuse patient.[facility] HospitalIn the event this information is protected by the Federal Confidentiality of Alcohol and Drug Abuse Patient Records regulations: The Federal rules restrict any use of the information to criminally investigate or prosecute any alcohol or drug abuse patient.[facility] HospitalIn the event this information is protected by the Federal Confidentiality of Alcohol and Drug Abuse Patient Records regulations: The Federal rules restrict any use of the information to criminally investigate or prosecute any alcohol or drug abuse patient.[facility] HospitalIn the event this information is protected by the Federal Confidentiality of Alcohol and Drug Abuse Patient Records regulations: The Federal rules restrict any use of the information to criminally investigate or prosecute any alcohol or drug abuse patient.[facility] the event this information is protected by the Federal Confidentiality of Alcohol and Drug Abuse Patient Records regulations: The Federal rules restrict any use of the information to criminally investigate or prosecute any alcohol or drug abuse patient.[facility] HospitalIn the event this information is protected by the Federal Confidentiality of Alcohol and Drug Abuse Patient Records regulations: The Federal rules restrict any use of the information to criminally investigate or prosecute any alcohol or drug abuse patient.[facility] HospitalIn the event this information is protected by the Federal Confidentiality of Alcohol and Drug Abuse Patient Records regulations: The Federal rules restrict any use of the information to criminally investigate or prosecute any alcohol or drug abuse patient.[facility] HospitalIn the event this information is protected by the Federal Confidentiality of Alcohol and Drug Abuse Patient Records regulations: The Federal rules restrict any use of the information to criminally investigate or prosecute any alcohol or drug abuse patient.[facility] HospitalIn the event this information is protected by the Federal Confidentiality of Alcohol and Drug Abuse Patient Records regulations: The Federal rules restrict any use of the information to criminally investigate or prosecute any alcohol or drug abuse patient.[facility] HospitalIn the event this information is protected by the Federal Confidentiality of Alcohol and Drug Abuse Patient Records regulations: The Federal rules restrict any use of the information to criminally investigate or prosecute any alcohol or drug abuse patient.[facility] HospitalIn the event this information is protected by the Federal Confidentiality of Alcohol and Drug Abuse Patient Records regulations: The Federal rules restrict any use of the information to criminally investigate or prosecute any alcohol or drug abuse patient.[facility] HospitalIn the event this information is protected by the Federal Confidentiality of Alcohol and Drug Abuse Patient Records regulations: The Federal rules restrict any use of the information to criminally investigate or prosecute any alcohol or drug abuse patient.[facility] HospitalIn the event this information is protected by the Federal Confidentiality of Alcohol and Drug Abuse Patient Records regulations: The Federal rules restrict any use of the information to criminally investigate or prosecute any alcohol or drug abuse patient.[facility] HospitalIn the event this information is protected by the Federal Confidentiality of Alcohol and Drug Abuse Patient Records regulations: The Federal rules restrict any use of the information to criminally investigate or prosecute any alcohol or drug abuse patient.[facility] HospitalIn the event this information is protected by the Federal Confidentiality of Alcohol and Drug Abuse Patient Records regulations: The Federal rules restrict any use of the information to criminally investigate or prosecute any alcohol or drug abuse patient.[facility] HospitalIn the event this information is protected by the Federal Confidentiality of Alcohol and Drug Abuse Patient Records regulations: The Federal rules restrict any use of the information to criminally investigate or prosecute any alcohol or drug abuse patient.[facility] HospitalIn the event this information is protected by the Federal Confidentiality of Alcohol and Drug Abuse Patient Records regulations: The Federal rules restrict any use of the information to criminally investigate or prosecute any alcohol or drug abuse patient.[facility] HospitalIn the event this information is protected by the Federal Confidentiality of Alcohol and Drug Abuse Patient Records regulations: The Federal rules restrict any use of the information to criminally investigate or prosecute any alcohol or drug abuse patient.[facility] HospitalIn the event this information is protected by the Federal Confidentiality of Alcohol and Drug Abuse Patient Records regulations: The Federal rules restrict any use of the information to criminally investigate or prosecute any alcohol or drug abuse patient.[facility] HospitalIn the event this information is protected by the Federal Confidentiality of Alcohol and Drug Abuse Patient Records regulations: The Federal rules restrict any use of the information to criminally investigate or prosecute any alcohol or drug abuse patient.[facility] HospitalIn the event this information is protected by the Federal Confidentiality of Alcohol and Drug Abuse Patient Records regulations: The Federal rules restrict any use of the information to criminally investigate or prosecute any alcohol or drug abuse patient.[facility] HospitalIn the event this information is protected by the Federal Confidentiality of Alcohol and Drug Abuse Patient Records regulations: The Federal rules restrict any use of the information to criminally investigate or prosecute any alcohol or drug abuse patient.[facility] HospitalIn the event this information is protected by the Federal Confidentiality of Alcohol and Drug Abuse Patient Records regulations: The Federal rules restrict any use of the information to criminally investigate or prosecute any alcohol or drug abuse patient.[facility] HospitalIn the event this information is protected by the Federal Confidentiality of Alcohol and Drug Abuse Patient Records regulations: The Federal rules restrict any use of the information to criminally investigate or prosecute any alcohol or drug abuse patient.[facility] HospitalIn the event this information is protected by the Federal Confidentiality of Alcohol and Drug Abuse Patient Records regulations: The Federal rules restrict any use of the information to criminally investigate or prosecute any alcohol or drug abuse patient.[facility] HospitalIn the event this information is protected by the Federal Confidentiality of Alcohol and Drug Abuse Patient Records regulations: The Federal rules restrict any use of the information to criminally investigate or prosecute any alcohol or drug abuse patient.[facility] HospitalIn the event this information is protected by the Federal Confidentiality of Alcohol and Drug Abuse Patient Records regulations: The Federal rules restrict any use of the information to criminally investigate or prosecute any alcohol or drug abuse patient.[facility] HospitalIn the event this information is protected by the Federal Confidentiality of Alcohol and Drug Abuse Patient Records regulations: The Federal rules restrict any use of the information to criminally investigate or prosecute any alcohol or drug abuse patient.[facility] HospitalIn the event this information is protected by the Federal Confidentiality of Alcohol and Drug Abuse Patient Records regulations: The Federal rules restrict any use of the information to criminally investigate or prosecute any alcohol or drug abuse patient.[facility] HospitalIn the event this information is protected by the Federal Confidentiality of Alcohol and Drug Abuse Patient Records regulations: The Federal rules restrict any use of the information to criminally investigate or prosecute any alcohol or drug abuse patient.[facility] HospitalIn the event this information is protected by the Federal Confidentiality of Alcohol and Drug Abuse Patient Records regulations: The Federal rules restrict any use of the information to criminally investigate or prosecute any alcohol or drug abuse patient.[facility] HospitalIn the event this information is protected by the Federal Confidentiality of Alcohol and Drug Abuse Patient Records regulations: The Federal rules restrict any use of the information to criminally investigate or prosecute any alcohol or drug abuse patient.[facility] HospitalIn the event this information is protected by the Federal Confidentiality of Alcohol and Drug Abuse Patient Records regulations: The Federal rules restrict any use of the information to criminally investigate or prosecute any alcohol or drug abuse patient.[facility] HospitalIn the event this information is protected by the Federal Confidentiality of Alcohol and Drug Abuse Patient Records regulations: The Federal rules restrict any use of the information to criminally investigate or prosecute any alcohol or drug abuse patient.[facility] HospitalIn the event this information is protected by the Federal Confidentiality of Alcohol and Drug Abuse Patient Records regulations: The Federal rules restrict any use of the information to criminally investigate or prosecute any alcohol or drug abuse patient.[facility] Reason for Visit (unrecogniz ed section and content) Reason Onset Date Comments Refill Request 07/10/2021 Reason Comments B-12 Injection Reason Comments iud check Reason Comments Established Patient review labs Reason Comments Results Medication Problem Reason Comments Vaginal Problem Reason Onset Date Comments Refill Request 08/28/2021 Reason Comments 6 Month Exam Reason Comments Insurance Authorization Tretinoin Micros phere Gel Reason Comments Opened In Error Reason Comments Insurance Authorization RETINA-A cream Reason Comments Orders Reason Onset Date Comments Refill Request 01/04/2022 Reason Onset Date Comments Refill Request 02/04/2022 Reason Comments Results Reason Comments Vit D Rx Reason Comments Medication Problem Reason Onset Date Comments Refill Request 07/02/2022 Refill Request 07/04/2022 Reason Comments 6 Month Exam Reason Comments Patient Question Reason Onset Date Comments Refill Request 12/16/2022 Reason Onset Date Comments Refill Request 05/06/2023 Reason Comments Vaginal Problem Possible yeast infec tion, discharge, itching x 5 daysStd panel Reason Comments Rx Refills Reason Comments Results Orders Reason Onset Date Comments Refill Request 07/17/2023 Reason Onset Date Comments Refill Request 10/28/2023 Reason Onset Date Comments Refill Request 11/26/2023 Reason Comments Injection Letter Reason Onset Date Comments Refill Request 12/26/2023 Reason Comments Radiology XR Reason Comments Yearly Exam Reason Comments Insurance Authorization lansoprazole Reason Comments Low Back Pain Reason Comments Back Pain Reason Comments Consult Reason Comments UTI Reason Comments Pre-Op Exam Dr Rajan left discec lyle L5-S1 09/30/24 Reason Comments Patient Question Re: EKG report Care Teams (unrecognized sec tion and content) Hospice Art Therapist Relationship Specialty Start Date End Date Paul Kendrick MD [address] [place] [address] PCP - General Family Practice 03/22/15 Hospice Art Therapist Relationship Specialty Start Date End Date Paul Kendrick MD [address] [place] [address] [place] [address] PCP - General Family Practice 03/22/15 Hospice Art Therapist Relationship Specialty Start Date End Date Paul Kendrick MD [address] [place] [address] PCP - General Family Practice 03/22/15 Hospice Art Therapist Relationship Specialty Start Date End Date Paul Kendrick MD [address] [place] [address] [place] [address] PCP - General Family Practice 03/22/15 Hospice Art Therapist Relationship Specialty Start Date End Date Paul Kendrick MD [address] [place] [address] [place] [address] PCP - General Family Practice 03/22/15 Hospice Art Therapist Relationship Specialty Start Date End Date Paul Kendrick MD [address] [place] [address] [place] [address] PCP - General Family Practice 03/22/15 Hospice Art Therapist Relationship Specialty Start Date End Date Paul Kendrick MD [address] [place] [address] [place] [address] PCP - General Family Practice 03/22/15 Hospice Art Therapist Relationship Specialty Start Date End Date Paul Kendrick MD [address] [facility] [place] [address] PCP - General Family Practice 03/22/15 Hospice Art Therapist Relationship Specialty Start Date End Date Paul Kendrick MD [address] [facility] [place] [address] PCP - General Family Practice 03/22/15 Hospice Art Therapist Relationship Specialty Start Date End Date Paul Kendrick MD [address] [facility] [place] [address] PCP - General Family Practice 03/22/15 Hospice Art Therapist Relationship Specialty Start Date End Date Paul Kendrick MD [address] [facility] [place] [address] PCP - General Family Medicine 03/22/15 Hospice Art Therapist Relationship Specialty Start Date End Date Paul Kendrick MD [address] [facility] [place] [address] PCP - General Family Medicine 03/22/15 Hospice Art Therapist Relationship Specialty Start Date End Date Paul Kendrick MD [address] [facility] [place] [address] PCP - General Family Medicine 03/22/15 Hospice Art Therapist Relationship Specialty Start Date End Date Paul Kendrick MD [address] [facility] [place] [address] PCP - General Family Medicine 03/22/15 Hospice Art Therapist Relationship Specialty Start Date End Date Paul Kendrick MD [address] [facility] [place] [address] PCP - General Family Medicine 03/22/15 Hospice Art Therapist Relationship Specialty Start Date End Date Paul Kendrick MD [address] [facility] [place] [address] PCP - General Family Medicine 03/22/15 Hospice Art Therapist Relationship Specialty Start Date End Date Paul Kendrick MD [address] [facility] [place] [place] [address] PCP - General Family Medicine 03/22/15 Hospice Art Therapist Relationship Specialty Start Date End Date Paul Kendrick MD [address] [facility] [place] [address] PCP - General Family Medicine 03/22/15 Team Status: Active Member Role Status Dates Dr. Paul Kendrick MD Family Provider Active Dr. Paul Kendrick MD Primary Care Provider Active Team Status: Inactive Member Role Status Dates Dr. Paul Kendrick MD Primary Care Provider Active Dr. Desirae Steen MD Attending Provider, Brigida nguyen Active Hospice Art Therapist Relationship Specialty Start Date End Date Paul Kendrick MD [address] [facility] [place] [address] PCP - General Family Medicine 03/22/15 Hospice Art Therapist Relationship Specialty Start Date End Date Paul Kendrick MD [address] [facility] [place] [address] PCP - General Family Medicine 03/22/15 Hospice Art Therapist Relationship Specialty Start Date End Date Paul Kendrick MD [address] [facility] [place] [place] [address] PCP - General Family Medicine 03/22/15 Hospice Art Therapist Relationship Specialty Start Date End Date Paul Kendrick MD [address] [facility] [place] [place] [address] PCP - General Family Medicine 03/22/15 Hospice Art Therapist Relationship Specialty Start Date End Date Palu Kendrick MD [address] [facility] [place] [address] PCP - General Family Medicine 03/22/15 Hospice Art Therapist Relationship Specialty Start Date End Date Paul Kendrick MD [address] [facility] [place] [place] [address] PCP - General Family Medicine 03/22/15 Hospice Art Therapist Relationship Specialty Start Date End Date Paul Kendrick MD [address] [place] [address] PCP - General Family Medicine 03/22/15 Hospice Art Therapist Relationship Specialty Start Date End Date Paul Kendrick MD [address] [place] [address] PCP - General Family Medicine 03/22/15 Hospice Art Therapist Relationship Specialty Start Date End Date Paul Kendrick MD [address] [place] [address] PCP - General Family Medicine 03/22/15 Hospice Art Therapist Relationship Specialty Start Date End Date Paul Kendrick MD [address] [place] [address] PCP - General Family Medicine 03/22/15 Hospice Art Therapist Relationship Specialty Start Date End Date Paul Kendrick MD [address] [place] [address] PCP - General Family Medicine 03/22/15 Hospice Art Therapist Relationship Specialty Start Date End Date Paul Kendrick MD [address] [place] [address] PCP - General Family Medicine 03/22/15 Hospice Art Therapist Relationship Specialty Start Date End Date Paul Kendrick MD [address] [place] [address] PCP - General Family Medicine 03/22/15 Hospice Art Therapist Relationship Specialty Start Date End Date Paul Kendrick MD [address] [place] [address] PCP - General Family Medicine 03/22/15 Hospice Art Therapist Relationship Specialty Start Date End Date Paul Kendrick MD [address] [place] [address] PCP - General Family Medicine 03/22/15 Hospice Art Therapist Relationship Specialty Start Date End Date Paul Kendrick MD [address] [place] [address] PCP - General Family Medicine 03/22/15 Hospice Art Therapist Relationship Specialty Start Date End Date Paul Kendrick MD [address] [place] [address] PCP - General Family Medicine 03/22/15 Hospice Art Therapist Relationship Specialty Start Date End Date Paul Kendrick MD [address] [place] [address] PCP - General Family Medicine 03/22/15 Hospice Art Therapist Relationship Specialty Start Date End Date Paul Kendrick MD [address] [place] [address] PCP - General Family Medicine 03/22/15 Hospice Art Therapist Relationship Specialty Start Date End Date Paul Kendrick MD [address] [place] [address] PCP - General Family Medicine 03/22/15 Hospice Art Therapist Relationship Specialty Start Date End Date Paul Kendrick MD [address] [place] [address] PCP - General Family Medicine 03/22/15 Hospice Art Therapist Relationship Specialty Start Date End Date Paul Kendrick MD [address] [facility] [place] [address] PCP - General Family Medicine 03/22/15 Hospice Art Therapist Relationship Specialty Start Date End Date Paul Kendrick MD [address] [facility] [place] [address] PCP - General Family Medicine 03/22/15 Hospice Art Therapist Relationship Specialty Start Date End Date Paul Kendrick MD [address] [facility] [place] [address] PCP - General Family Medicine 03/22/15 Team Status: Inactive Member Role Status Dates Dr. Paul Kendrick MD Primary Care Provider Active Start: March 02, 2024 End: March 02, 2024 Dr. Sav Montes DC Attending Provider Active Start: March 02, 2024 End: March 02, 2024 Dr. Sav Montes DC Referring Provider Active Start: March 02, 2024 End: March 02, 2024 Team Status: Inactive Member Role Status Dates Dr. Paul Kendrick MD Primary Care Provider Active Start: March 03, 2024 End: March 03, 2024 Dr. Virginia Peter DO Attending Provider Active Start: March 03, 2024 End: March 03, 2024 Dr. Virginia Peter DO Emergency Provider Active Start: March 03, 2024 End: March 03, 2024 Team Status: Inactive Member Role Status Dates Dr. Paul Kendrick MD Primary Care Provider Active Start: April 13, 2024 End: April 13, 2024 Dr. Shayne Blas MD Attending Provider Active Start: April 13, 2024 End: April 13, 2024 Dr. Shayne Blas MD Referring Provider Active Start: April 13, 2024 End: April 13, 2024 Team Status: Inactive Member Role Status Dates Dr. Paul Kendrick MD Primary Care Provider Active Start: April 16, 2024 End: April 16, 2024 Dr. Shayne Blas MD Attending Provider Active Start: April 16, 2024 End: April 16, 2024 Dr. Shayne Blas MD Referring Provider Active Start: April 16, 2024 End: April 16, 2024 Team Status: Inactive Member Role Status Dates Dr. Paul Kendrick MD Primary Care Provider Active Start: May 05, 2024 End: May 05, 2024 Dr. Barney Rajan MD Attending Provider Active Start: May 05, 2024 End: May 05, 2024 Dr. Shayne Blas MD Referring Provider Active Start: May 05, 2024 End: May 05, 2024 Team Status: Inactive Member Role Status Dates Dr. Paul Kendrick MD Primary Care Provider Active Start: May 05, 2024 End: May 05, 2024 Dr. Anselmo Martin MD Attending Provider Active S tart: May 05, 2024 End: May 05, 2024 Hospice Art Therapist Relationship Specialty Start Date End Date Paul Kendrick MD [address] [facility], [place] [address] PCP - General Family Medicine 03/22/15 Adelia Bustillos CUSTOM FEED MILL OPERATOR HELPER.CERTIFIED CODING SPECIALIST [address] [facility], [place] [address] [facility] 03/09/24 Marry Paredes CUSTOM FEED MILL OPERATOR HELPER.CERTIFIED CODING SPECIALIST [address] [facility] [place] [address] [facility] 03/09/24 Team Status: Inactive Member Role Status Dates Dr. Paul Kendrick MD Primary Care Provider Active Start: September 08, 2024 End: September 08, 2024 Dr. Paul Kendrick MD Referring Provider Active Start: September 08, 2024 End: September 08, 2024 Dr. Barney Rajan MD Attending Provider Active Start: September 08, 2024 End: September 08, 2024 Hospice Art Therapist Relationship Specialty Start Date End Date Paul Kendrick MD [address] [facility], [place] [id number] PCP - General Family Medicine 03/22/15 Adelia Bustillos, KIRTI.CERTIFIED CODING SPECIALIST [address] [place] [address] Internal Communications Intern Family Medicine 03/09/24 Marry Paredes APRN.CERTIFIED CODING SPECIALIST [address] [facility] [place] [address] Internal Communications Intern Family Medicine 03/09/24 Hospice Art Therapist Relationship Specialty Start Date End Date Paul Kendrick MD [address] [facility] [place] [place] [address] PCP - General Family Medicine 03/22/15 Adelia Bustillos, CUSTOM FEED MILL OPERATOR HELPER.CERTIFIED CODING SPECIALIST [address] [place] [address] Internal Communications Intern Family Medicine 03/09/24 Marry Paredes CUSTOM FEED MILL OPERATOR HELPER.CERTIFIED CODING SPECIALIST [address] [facility] [place] [address] Internal Communications Intern Family Medicine 03/09/24 Hospice Art Therapist Relationship Specialty Start Date End Date Paul Kendrick MD [address] [facility] [place] [place] [address] PCP - General Family Medicine 03/22/15 Adelia Bustillos, CUSTOM FEED MILL OPERATOR HELPER.CERTIFIED CODING SPECIALIST [address] [facility] [address] Internal Communications Intern Family Medicine 03/09/24 Marry Paredes APRN.CERTIFIED CODING SPECIALIST [address] [facility] [place] [place] [address] Internal Communications Intern Family Medicine 03/09/24 Hospice Art Therapist Relationship Specialty Start Date End Date Paul Kendrick MD [address] [facility] [place], [place] [address] PCP - General Family Medicine 03/22/15 Adelia Bustillos APRN.CERTIFIED CODING SPECIALIST [address] [facility] [place], [place] [address] Internal Communications Intern Family [facility] 03/09/24 Marry Paredes APRN.CERTIFIED CODING SPECIALIST [address] [facility] [place], [place] [address] [facility] Team Status: Active Member Role/Relationship Status Dates Dr. Paul Kendrick MD Primary Care Provider Active Team Status: Inactive Member Role/Relationship Status Dates Dr. Paul Kendrick MD Primary Care Provider Active Start: September 08, 2024 End: September 08, 2024 Dr. Paul Kendrick MD Referring Provider Active Start: September 08, 2024 End: September 08, 2024 Dr. Barney Rajan MD Attending Provider Active Start: September 08, 2024 End: September 08, 2024 Team Status: Inactive Member Role/Relationship Status Dates Dr. Paul Kendrick MD Primary Care Provider Active Start: September 23, 2024 End: September 23, 2024 Dr. Paul Kendrick MD Attending Provider Active Start: September 23, 2024 End: September 23, 2024 Dr. Paul Kendrick MD Referring Provider Active Start: September 23, 2024 End: September 23, 2024 Hospice Art Therapist Relationship Specialty Start Date End Date Paul Kendrick MD [address] [facility] [place], [place] [address] PCP - General Family Medicine 03/22/15 Adelia Bustillos APRN.CERTIFIED CODING SPECIALIST [address] [facility] [place], [place] [address] [facility]24 Marry Paredes APRN.CERTIFIED CODING SPECIALIST [address] [facility] [place], [place] [id number] [facility] 03/09/24 Hospice Art Therapist Relationship Specialty Start Date End Date Paul Kendrick MD [address] [place], [place] [id number] PCP - General Family Medicine 03/22/15 Adelia Bustillos APRN.CERTIFIED CODING SPECIALIST [address] [place], [place] [id number] [facility] [facility] 03/09/24 Marry Paredes APRN.CERTIFIED CODING SPECIALIST [address] [place] [address] [facility] 03/09/24 FOR RECORDS PERTAINING TO PATIENTS WHO ARE OR HAVE BEEN ENROLLED IN A CHEMICAL DEPENDENCY/SUBSTANCEABUSE PROGRAM, SOME INFORMATION MAY BE OMITTED. This clinical summary was aggregated from multiple sources. Caution should be exercised in using it in the provision of clinical care. This summary normalizes information from multiple sources, and as a consequence, information in this document may materially change the coding, format and clinical context of patient data. In addition, data may be omitted in some cases. CLINICAL DECISIONS SHOULD BE BASED ON THE PRIMARY CLINICAL RECORDS. [facility] [employer] [facility]. provides no warranty or guarantee of the accuracy or completeness of information in this document.
--- OUTSIDE RECORDS SUMMARY | 2024-09-30 05:31 | XMS RPT_ITS | CCD ---
Author Organization [facility] Care Team Providers Care Senior Control Systems Engineer Name Role Phone KERRIE KOLB Unavailable Unavailable KERRIE KOLB Unavailable Unavailable Paul Kendrick MD Primary Care Provider Dr. Paul Kendrick Primary Care Provider Dr. Anselmo Martin Attending Provider Dr. Lyle Mas Referring Provider Paul Kendrick MD Primary Care Provider Paul Kendrick MD Primary Care Provider Paul Kendrick MD Primary Care Provider Paul Kendrick MD Primary Care Provider Dr. Paul Kendrick MD Primary Care Provider [facility] GARCIA, Dr. Ang Attending Provider [facility] GARCIA, Dr. Ang Referring Provider Dr. Virginia Peter DO Attending Provider Dr. Virginia Peter DO Emergency Provider Dr. Shayne Blas MD Attending Provider Dr. Shayne Blas MD Referring Provider Dr. Barney Rajan MD Attending Provider Dr. Anselmo Martin MD Attending Provider Haagen GROUND SUPPORT EQUIPMENT MECHANIC.AERIAL LINEMAN, Adelia Unavailable Suppan GROUND SUPPORT EQUIPMENT MECHANIC.AERIAL LINEMAN, Marry A Unavailable Dr. Paul Kendrick MD [...] Martin Attending Unavailable Barney Rajan Attending Unavailable Purple Sage, Paul Primary Care Unavailable Aroldo, Paul Referring Unavailable Barney Rajan Attending Unavailable Aroldo, Paul Primary Care Unavailable PraShayne corley Referring Unavailable PraysShayne holland Attending Unavailable PraShayne corley Referring Unavailable Purple Sage, Paul Primary Care Unavailable Aroldo, Paul Primary Care Unavailable Virginia Peter Attending Unavailable Barney Rajan Referring Unavailable Aroldo, Paul Primary Care Unavailable Barney Rajan Attending Unavailable Aroldo, Paul Primary Care Unavailable Aroldo, Paul Attending Unavailable Aroldo, Paul Referring Unavailable Purple Sage, Paul Primary Care Unavailable Sav Montes Attending Unavailable Sav Montes Referring Unavailable PraShayne corley Attending Unavailable Shayne Blas Referring Unavailable Aroldo, Paul Primary Care Unavailable Allergies Allergy Classification Reported Allergen(s) Allergy Type Date of Onset Reaction(s) Facility (20 sources) Adhesive Tape; Translations: [ADHESIVE TAPE (ROSINS)] Propensity to adverse reactions (disorder) 4 [facility] Repository (20 sources) Aspirin; Translations: [ASPIRIN] Drug Allergy 4 Other [facility] Repository (20 sources) buPROPion; Translations: [BUPROPION HCL] Drug Allergy 7 Other: See Comments [facility] Repository (20 sources) Latex; Translations: [LATEX] Propensity to adverse reactions to drug (disorder) 8 [facility] Repository (20 sources) NSAIDs; Translations: [NSAIDS (NON-STEROIDAL ANTI-INFLAMMATO RY DRUG)] Propensity to adverse reactions to drug (disorder) 5 [facility] Repository (20 sources) venlafaxine; Translations: [VENLAFAXINE] Drug Allergy 8 Other: See Comments [facility] Repository (10 sources) Adhesive Tape; Translations: [adhesive tape] Allergy to substance 2 Other [facility] (9 sources) buPROPion Drug Allergy 2 Other [facility] (10 sources) NSAIDS (Non-Steroidal Anti-Inflamma; Translations: [NSAIDS (Non-Steroidal Anti-Inflamma] Allergy to substance 2 Other [facility] (1 source) buPROPion Drug Allergy 5 [facility] Repository Medications Current Medications Medication Drug Class(es) [...] at bedtime for 180 days. lactobacillus acidophilus [id number] unt / pectin 100 mg oral tablet (20 sources) Start: 2023 take 1 tablet by mouth once Acidophilus-Pectin, [place] 25 million cell -100 mg tab Take [...] before breakfast. 1/2 hr before meal. levonorgestrel 0.205553 mg/hr intrauterine system (20 sources) Progestin, Progestin-containing [...] on above: Take 1 capsule by mo [facility] daily before breakfast. 1/2 hr before meal. [...] humidity & tubing. Lifetime supplies. FLOR G47.33npi [id number] 1 Device 04/28/2020 07/31/2021 Discontinued (Course of therapy completed) Start: 04-28-2020 End: 07-31-2021 CPAP Indications: FLOR (obstr uctive sleep apnea) 30 day download, send 30 day detailed download. mask (pt pref), nasal pillows may be too big, try nasal, filters, heated humidity & tubing. Lifetime supplies. FLOR G47.33npi [id number] 1 Device 0 04/28/2020 07/31/2021 Discontinued (Course of therapy completed) Start: 04-28-2020 CPAP Indicatio ns: FLOR (obstructive sleep apnea) 30 day download, send 30 day detailed download. mask (pt pref), nasal pillows may be too big, try nasal, filters, heated humidity & tubing. Lifetime supplies. FLOR G47.33npi [id number] 1 Device 0 04/28/2020 Active Start: 10-28-2019 [...] humidity & tubing. Lifetime supplies. FLOR G47.33npi [id number] doxycycline hyclate 100 mg oral capsule (20 [...] 7 days. Take 1 capsule by mo [facility] two times a day. ergocalciferol 1.25 mg oral capsule (20 sources) Provitamin D2 Compound Start: 09-07-2021 End: 05-05-2024 Ergocalciferol (Vitamin D2) (Vitamin D2) 1,250 mcg (50,000 unit) capsule Discontinued 00336 ug PO EVERY WEEK September 07, 2021 [...] Comment on above: Take 1 capsule by [facility] two times a week. 21 day ethinyl estradiol 0.698128 mg/hr / etonogestrel 0.005 mg/hr vaginal system [...] RELIEF) 50 mcg/actuation nasal spray Use 1 [place] in each nostril once daily. 01/25/2021 Discontinued [...] Test Name Value Interpretation Reference Range Facility [facility] 09-29-[address] [facility] Telephone ([facility]) -- CITLALI BECKWITH ([id number]) 1985 F Date Time Provider Department 09/29/24 PAUL KENDRICK [facility] During your visit today, we recorded the following information about you: Liliana Smith RN 09/29/2024 9:13 AM Signed Shanna with [facility] called in and was asking [...] times a day as needed. - Acidophilus-Pectin, [place] 25 million cell -100 mg tab Take [...] [Z72.0] 08/26/2007 Routine general medical examination at [facility]*06/30/2009 09/13/2015 Class: Chronic Routine gynecological examination [Z01.419] [...] Status:Closed by LILIANA SMITH on 09/29/24 Normal [facility] Vitamin B1, Thiamineon 09-28 VIT B1 THIAMINE 98.5 nmol/L Normal 66.5-200.0 [facility] Comment on above: Order Comment: Test( s) 811390-Clv. B1, Whole Bloodwas developed and its performance characteristicsdetermined by [facility]. It has not been cleared or approvedby the Food and Drug Administration. Result Comment: Perf ormed at: - [facility] [id number] New Accounts Representative: Lisa Ruvalcaba MD, Phone: [phone] Performed By: #### L 506.0200, L503.0106, L503.6030, L500.4050, L3300.8000 ####[facility] [address] [place], [address] [facility] 09-25-[address] [facility] -- CITLALI BECKWITH ([id number]) 1985 F Date Time Provider Department 09/25/24 [facility]ENDR[facility] During your visit today, we recorded the following information about you: Nicole Duff MA 09/25/2024 9:53 AM Signed View External Labs - Miscellaneous Lab [ID [id number]] View External Labs - Miscellaneous Lab [ID [id number]] View External Labs - [facility]-Blood type [ID [id number]] Paul Kendrick MD 09/28/2024 11:58 AM Signed [...] BLOOD COUNT AND DIFFERENTIAL [SQCBCDIF] Order #: [id number] FUTURE IRON AND TIBC [SQIRON] Order #: [id number] FUTURE ferrous sulfate (IRON) 325 mg (65 [...] times a day as needed. - Acidophilus-Pectin, [place] 25 million cell -100 mg tab Take [...] [Z72.0] 08/26/2007 Routine general medical examination at [facility]*06/30/2009 09/13/2015 Class: Chronic Routine gynecological examination [Z01.419] [...] HPV (human (more content not included)... Normal [facility] Hepatitis A AB, Totalon 08-31 HEPATITIS A,TOT Negative Normal Negative [facility] Comment on above: Result Comment: Comm ent: The HAV total antibody assay detects both IgG and IgM but does not differentiate between them. A negative result suggests susceptibility to infection. A positive result could be due to vaccination, previously resolved infection or active infection. Testing for HAV IgM should be performed if active HAV infection is suspected. [facility] offers profiles that will automatically reflex positive HAV total antibody results to IgM (e.g., panel #[id number] HAV Antibody w/ Rfx). Performed at: [place] [id number] New Accounts Representative: Shashi Jarvis PhD, Phone: [phone] Performed By: #### L 501.9985, BTSPAT, M100.651, L3100.0300, L100.0100, L3890.6006, L500.2500, L3890.6202, L3890.6301 ####[facility] [address] [place], [address] Anion gap in Serum or Plasma Ordered By: Paul Kendrick on 09-23-2024 Anion gap [Moles/Vol] 9 mmol/L 08-13 [facility] BUN/creatinine ratioOrdered By: Paul Kendrick on 09-23-2024 Urea nitrogen/Creatinine [Mass ratio] 14.3 mg/mg 01-18 [facility] Basic Metabolic Profile (BMP )on 09-23-2024 BUN/CRE 14.0 RATIO Normal 10-20 [facility] Comment on above: Performed By: #### L 501.9985, BTSPAT, M100.651, L3100.0300, L100.0100, L3890.6006, L500.2500, L3890.6202, L3890.6301 ####[facility] [address] [place], [address] Calcium [Mass/Vol] 8.8 mg/dL Normal 7.6-11.0 [place] Comment on above: Performed By: #### L 501.9985, BTSPAT, M100.651, L3100.0300, L100.0100, L3890.6006, L500.2500, L3890.6202, L3890.6301 ####[facility] [address] [place], [address] Chloride [Moles/Vol] 106 mmol/L Normal 98-108 [facility] Comment on above: Performed By: #### L 501.9985, BTSPAT, M100.651, L3100.0300, L100.0100, L3890.6006, L500.2500, L3890.6202, L3890.6301 ####[facility] [address] [place], [address] CO2 [Moles/Vol] 23.7 mmol/L Normal 21.0-32.0 [facility] Comment on above: Performed By: #### L 501.9985, BTSPAT, M100.651, L3100.0300, L100.0100, L3890.6006, L500.2500, L3890.6202, L3890.6301 ####[facility] [address] [place], [address] Creatinine [Mass/Vol] 0.91 mg/dL Normal 0.70-1.20 [facility] Comment on above: Performed By: #### L 501.9985, BTSPAT, M100.651, L3100.0300, L100.0100, L3890.6006, L500.2500, L3890.6202, L3890.6301 ####[facility] [address] [place], [address] GAP 11 Normal 5-15 [facility] Comment on above: Performed By: #### L 501.9985, BTSPAT, M100.651, L3100.0300, L100.0100, L3890.6006, L500.2500, L3890.6202, L3890.6301 ####[facility] [address] [place], [address] GFR/1.73 sq M.predicted among non-blacks MDRD (S/P/Bld) [Vol rate/Area] 82 mL/min/{1.73_m2} Normal >60 [facility] Comment on above: Result Comment: mL/m in/1.73m2 CKD-EPI Creatinine Equation (2020) Performed By: #### L 501.9985, BTSPAT, M100.651, L3100.0300, L100.0100, L3890.6006, L500.2500, L3890.6202, L3890.6301 ####[facility] [address] [place], [address] Glucose [Mass/Vol] 92 mg/dL Normal 70-99 [place] Comment on above: Performed By: #### L 501.9985, BTSPAT, M100.651, L3100.0300, L100.0100, L3890.6006, L500.2500, L3890.6202, L3890.6301 ####[facility] [address] [place], [address] Potassium [Moles/Vol] 3.8 mmol/L Normal 3.3-5.1 [facility] Comment on above: Performed By: #### L 501.9985, BTSPAT, M100.651, L3100.0300, L100.0100, L3890.6006, L500.2500, L3890.6202, L3890.6301 ####[facility] [address] [place], [address] Sodium [Moles/Vol] 140 mmol/L Normal 133-145 [place] Comment on above: Performed By: #### L 501.9985, BTSPAT, M100.651, L3100.0300, L100.0100, L3890.6006, L500.2500, L3890.6202, L3890.6301 ####[facility] [address] [place], [address] Urea nitrogen [Mass/Vol] 13 mg/dL Normal 4-19 [facility] Comment on above: Performed By: #### L 501.9985, BTSPAT, M100.651, L3100.0300, L100.0100, L3890.6006, L500.2500, L3890.6202, L3890.6301 ####[facility] [address] [place], [address] Bilirubin, totalOrdered By: Paul Kendrick on 09-23-2024 Bilirubin [Mass/Vol] 1.56 mg/dL High 0.00-1.30 [facility] CBC W/Diff, Automatedon 08-31 Absolute Lymph 1.50 X10 3/uL Normal 0.83-4.51 [facility] Comment on above: Order Comment: DR CHAVIRA ALSO ORDERED CBCD Performed By: #### L 501.9985, BTSPAT, M100.651, L3100.0300, L100.0100, L3890.6006, L500.2500, L3890.6202, L3890.6301 #### [facility] [address] [place], [address] Absolute Neut 3.7 X10 3/uL Normal 2.0-7.7 [facility] Comment on above: Order Comment: DR CHAVIRA ALSO ORDERED CBCD Performed By: #### L 501.9985, BTSPAT, M100.651, L3100.0300, L100.0100, L3890.6006, L500.2500, L3890.6202, L3890.6301 #### [facility] [address] [place], [address] Basophils/100 WBC (Bld) 0.7 % Normal 0-1 [facility] Comment on above: Order Comment: DR CHAVIRA ALSO ORDERED CBCD Performed By: #### L 501.9985, BTSPAT, M100.651, L3100.0300, L100.0100, L3890.6006, L500.2500, L3890.6202, L3890.6301 #### [facility] [address] [place], [address] Eosinophils/100 WBC (Bld) 2.1 % Normal 0-5 [facility] Comment on above: Order Comment: DR CHAVIRA ALSO ORDERED CBCD Performed By: #### L 501.9985, BTSPAT, M100.651, L3100.0300, L100.0100, L3890.6006, L500.2500, L3890.6202, L3890.6301 #### [facility] [address] [place], [address] Erythrocyte distribution width (RBC) [Ratio] 12.4 % Normal 11.6-14.6 [facility] Comment on above: Order Comment: DR CHAVIRA ALSO ORDERED CBCD Performed By: #### L 501.9985, BTSPAT, M100.651, L3100.0300, L100.0100, L3890.6006, L500.2500, L3890.6202, L3890.6301 #### [facility] [address] [facility] [place], [address] Hematocrit (Bld) [Volume fraction] 36.7 % Low 37-47 [facility] Comment on above: Order Comment: DR CHAVIRA ALSO ORDERED CBCD Performed By: #### L 501.9985, BTSPAT, M100.651, L3100.0300, L100.0100, L3890.6006, L500.2500, L3890.6202, L3890.6301 #### [facility] [address] [place], [address] Hemoglobin (Bld) [Mass/Vol] 12.4 g/dL Normal 12.0-15.0 [facility] Comment on above: Order Comment: DR CHAVIRA ALSO ORDERED CBCD Performed By: #### L 501.9985, BTSPAT, M100.651, L3100.0300, L100.0100, L3890.6006, L500.2500, L3890.6202, L3890.6301 #### [facility] [address] [place], [address] IG% 0.200 Normal 0.0-0.9 [facility] Comment on above: Order Comment: DR CHAVIRA ALSO ORDERED CBCD Result Comment: IG% - Immature Granulocytes (promyelocytes, myelocytes and metamyelocytes) > 1% indicates that a LEFT SHIFT is Present. Performed By: #### L 501.9985, BTSPAT, M100.651, L3100.0300, L100.0100, L3890.6006, L500.2500, L3890.6202, L3890.6301 #### [facility] [address] [place], [address] Lymphocytes/100 WBC (Bld) 26.0 % Normal 19-41 [facility] Comment on above: Order Comment: DR CHAVIRA ALSO ORDERED CBCD Performed By: #### L 501.9985, BTSPAT, M100.651, L3100.0300, L100.0100, L3890.6006, L500.2500, L3890.6202, L3890.6301 #### [facility] [address] [place], [address] MCH (RBC) [Entitic mass] 29.7 pg Normal 27.0-32.0 [facility] Comment on above: Order Comment: DR CHAVIRA ALSO ORDERED CBCD Performed By: #### L 501.9985, BTSPAT, M100.651, L3100.0300, L100.0100, L3890.6006, L500.2500, L3890.6202, L3890.6301 #### [facility] [address] [place], [address] MCHC (RBC) [Mass/Vol] 33.8 g/dL Normal 32-36 [facility] Comment on above: Order Comment: DR CHAVIRA ALSO ORDERED CBCD Performed By: #### L 501.9985, BTSPAT, M100.651, L3100.0300, L100.0100, L3890.6006, L500.2500, L3890.6202, L3890.6301 #### [facility] [address] [place], [address] MCV (RBC) [Entitic vol] 87.8 fL Normal 81-99 [facility] Comment on above: Order Comment: DR CHAVIRA ALSO ORDERED CBCD Performed By: #### L 501.9985, BTSPAT, M100.651, L3100.0300, L100.0100, L3890.6006, L500.2500, L3890.6202, L3890.6301 #### [facility] [address] [place], [address] Monocytes/100 WBC (Bld) 6.4 % Normal 0-10 [facility] Comment on above: Order Comment: DR CHAVIRA ALSO ORDERED CBCD Performed By: #### L 501.9985, BTSPAT, M100.651, L3100.0300, L100.0100, L3890.6006, L500.2500, L3890.6202, L3890.6301 #### [facility] [address], [address] Neutrophils/100 WBC (Bld) 64.6 % Normal 47-70 [facility] Comment on above: Order Comment: DR CHAVIRA ALSO ORDERED CBCD Performed By: #### L 501.9985, BTSPAT, M100.651, L3100.0300, L100.0100, L3890.6006, L500.2500, L3890.6202, L3890.6301 #### [facility] [address] [place], [address] Nucleated RBC (Bld) [#/Vol] 0 10*3/uL Normal 0-5 [facility] Comment on above: Order Comment: DR CHAVIRA ALSO ORDERED CBCD Performed By: #### L 501.9985, BTSPAT, M100.651, L3100.0300, L100.0100, L3890.6006, L500.2500, L3890.6202, L3890.6301 #### [facility] [address] [facility] [place], [address] Platelet mean volume (Bld) [Entitic vol] 10.0 fL Normal 6.2-12.0 [facility] Comment on above: Order Comment: DR CHAVIRA ALSO ORDERED CBCD Performed By: #### L 501.9985, BTSPAT, M100.651, L3100.0300, L100.0100, L3890.6006, L500.2500, L3890.6202, L3890.6301 #### [facility] [address] [place], [address] Platelets (Bld) [#/Vol] 240 10*3/uL Normal 150-450 [facility] Comment on above: Order Comment: DR CHAVIRA ALSO ORDERED CBCD Performed By: #### L 501.9985, BTSPAT, M100.651, L3100.0300, L100.0100, L3890.6006, L500.2500, L3890.6202, L3890.6301 #### [facility] [address] [place], [address] RBC (Bld) [#/Vol] 4.18 10*6/uL Low 4.2-5.4 [facility] Comment on above: Order Comment: DR CHAVIRA ALSO ORDERED CBCD Performed By: #### L 501.9985, BTSPAT, M100.651, L3100.0300, L100.0100, L3890.6006, L500.2500, L3890.6202, L3890.6301 #### [facility] [address] [place], [address] RDW SD 39.7 fl Normal 35.1-43.9 [facility] Comment on above: Order Comment: DR CHAVIRA ALSO ORDERED CBCD Performed By: #### L 501.9985, BTSPAT, M100.651, L3100.0300, L100.0100, L3890.6006, L500.2500, L3890.6202, L3890.6301 #### [facility] [address] [place], [address] WBC (Bld) [#/Vol] 5.8 10*3/uL Normal 4.4-11.0 [place] Comment on above: Order Comment: DR CHAVIRA ALSO ORDERED CBCD Performed By: #### L 501.9985, BTSPAT, M100.651, L3100.0300, L100.0100, L3890.6006, L500.2500, L3890.6202, L3890.6301 #### [facility] [address] [place], [address] Carbon dioxide, total [Moles /volume] in Central venous bloodOrdered By: Paul Kendrick on 09-23-2024 CO2 [Moles/Vol] 24.9 mmol/L 21.0-32.0 [facility] Chloride assayOrdered By: Rosa millscassius Aroldo on 09-23-2024 Chloride [Moles/Vol] 106 mmol/L 98-108 [facility] Comprehensive Metabolic Prof ilon 09-23-2024 Albumin [Mass/Vol] 4.0 g/dL Normal 3.5-5.0 [place] Comment on above: Performed By: #### L 506.0200, L503.0106, L503.6030, L500.4050, L3300.8000 ####[facility] [address] [place], [address] Albumin/Globulin [Mass ratio] 1.6 {ratio} Normal 0.9-2.4 [facility] Comment on above: Performed By: #### L 506.0200, L503.0106, L503.6030, L500.4050, L3300.8000 ####[facility] [address] [place], [address] ALK PHOS 72 U/L Normal 35-104 [facility] Comment on above: Performed By: #### L 506.0200, L503.0106, L503.6030, L500.4050, L3300.8000 ####[facility] [address] [place], [address] ALT [Catalytic activity/Vol] 24 U/L Normal <=34 [facility] Comment on above: Performed By: #### L 506.0200, L503.0106, L503.6030, L500.4050, L3300.8000 ####[facility] [address] [place], [address] AST [Catalytic activity/Vol] 23 U/L Normal <=31 [facility] Comment on above: Performed By: #### L 506.0200, L503.0106, L503.6030, L500.4050, L3300.8000 ####[facility] [address] [place], [address] Bilirubin [Mass/Vol] 1.56 mg/dL High 0.00-1.30 [facility] Comment on above: Performed By: #### L 506.0200, L503.0106, L503.6030, L500.4050, L3300.8000 ####[facility] [address] [place], [address] BUN/CRE 14.3 RATIO Normal 10-20 [facility] Comment on above: Performed By: #### L 506.0200, L503.0106, L503.6030, L500.4050, L3300.8000 ####[facility] [address] [place], [address] Calcium [Mass/Vol] 8.8 mg/dL Normal 7.6-11.0 [place] Comment on above: Performed By: #### L 506.0200, L503.0106, L503.6030, L500.4050, L3300.8000 ####[facility] [address] [place], [address] Chloride [Moles/Vol] 106 mmol/L Normal 98-108 [facility] Comment on above: Performed By: #### L 506.0200, L503.0106, L503.6030, L500.4050, L3300.8000 ####[facility] [address] [place], [address] CO2 [Moles/Vol] 24.9 mmol/L Normal 21.0-32.0 [facility] Comment on above: Performed By: #### L 506.0200, L503.0106, L503.6030, L500.4050, L3300.8000 ####[facility] [address] [place], [address] Creatinine [Mass/Vol] 0.89 mg/dL Normal 0.70-1.20 [facility] Comment on above: Performed By: #### L 506.0200, L503.0106, L503.6030, L500.4050, L3300.8000 ####[facility] [address] [place], [address] GAP 9 Normal 5-15 [facility] Comment on above: Performed By: #### L 506.0200, L503.0106, L503.6030, L500.4050, L3300.8000 ####[facility] [address] [place], [address] GFR/1.73 sq M.predicted among non-blacks MDRD (S/P/Bld) [Vol rate/Area] 84 mL/min/{1.73_m2} Normal >60 [facility] Comment on above: Result Comment: mL/m in/1.73m2 CKD-EPI Creatinine Equation (2020) Performed By: #### L 506.0200, L503.0106, L503.6030, L500.4050, L3300.8000 ####[facility] [address] [place], [address] Globulin (S) [Mass/Vol] 2.6 g/dL Normal 2.2-4.2 [facility] Comment on above: Performed By: #### L 506.0200, L503.0106, L503.6030, L500.4050, L3300.8000 ####[facility] [address] [place], [address] Glucose [Mass/Vol] 94 mg/dL Normal 70-99 [place] Comment on above: Performed By: #### L 506.0200, L503.0106, L503.6030, L500.4050, L3300.8000 ####[facility] [address] [place], [address] Potassium [Moles/Vol] 3.8 mmol/L Normal 3.3-5.1 [facility] Comment on above: Performed By: #### L 506.0200, L503.0106, L503.6030, L500.4050, L3300.8000 ####[facility] [address] [place], [address] Sodium [Moles/Vol] 140 mmol/L Normal 133-145 [place] Comment on above: Performed By: #### L 506.0200, L503.0106, L503.6030, L500.4050, L3300.8000 ####[facility] [address] [place], [address] T PROT 6.6 g/dL Normal 5.9-8.4 [facility] Comment on above: Performed By: #### L 506.0200, L503.0106, L503.6030, L500.4050, L3300.8000 ####[facility] [address] [place], [address] Urea nitrogen [Mass/Vol] 13 mg/dL Normal 4-19 [facility] Comment on above: Performed By: #### L 506.0200, L503.0106, L503.6030, L500.4050, L3300.8000 ####[facility] [address] [place], [address] Folate [Moles/volume] in Ser um or PlasmaOrdered By: Paul Kendrick on 09-23-2024 Folate [Moles/Vol] 18.00 ng/mL 4.60-34.80 [facility] Folates,Serum (Folic Acid)on 09-23-2024 FOLATES,SERUM 18.00 ng/mL Normal 4.60-34.80 [facility] Comment on above: Order Comment: N Performed By: #### L 506.0200, L503.0106, L503.6030, L500.4050, L3300.8000 ####[facility] [address] [place], [place], [address] Glomerular filtration rate ( GFR) estimation/1.73 sq m using serum, plasma, or whole bOrdered By: Paul Kendrick on 09-23-2024 GFR/1.73 sq M.predicted among non-blacks MDRD (S/P/Bld) [Vol rate/Area] 84 mL/min/{1.73_m2} >60 [facility] Comment on above: mL/min/1.73m2 CKD-EP I Creatinine Equation (2020) HIVon 09-23-2024 HIV Non-Reactive Normal Nonreactive [facility] Comment on above: Result Comment: Non- Reactive Reactive Repeatedly reactive samples must be confirmed according to CDC recommended confirmatory algorithms. The subresults for either HIVAG or AHIV can be used as an aid in the selection of the confirmation algorithm for reactive samples. Send out specimens with Reactive results to [facility] for confirmation. Order the HIV antibody detection and differentiation: #[id number] AMENDED REPORT 09/23/24 1738 HIV previously reported as: No_Result Non-Reactive Reactive Repeatedly reactive samples must be confirmed according to CDC recommended confirmatory algorithms. The subresults for either HIVAG or AHIV can be used as an aid in the selection of the confirmation algorithm for reactive samples. Send out specimens with Reactive results to [facility] for confirmation. Order the HIV antibody detection and differentiation: lc#[id number] Performed By: #### L 501.9985, BTSPAT, M100.651, L3100.0300, L100.0100, L3890.6006, L500.2500, L3890.6202, L3890.6301 ####[facility] [address] [place], [place], [id number] Hemoglobin A1con 09-23-2024 HbA1c (Bld) [Mass fraction] 5.2 % Normal <=5.6 [facility] Comment on above: Result Comment: Norm al < 5.7 % Prediabetic 5.7 - 6.4 % Diabetic >or= 6.5 % Please note range changes. Performed By: #### L 501.9985, BTSPAT, M100.651, L3100.0300, L100.0100, L3890.6006, L500.2500, L3890.6202, L3890.6301 #### [facility] [address] [place], [place], [address] Hepatitis B Surface Antibody on 09-23-2024 HEP B Surf Ab Non-Reactive Normal [facility] Comment on above: Result Comment: <8.5 mIU/mL: Non-Reactive 8.5<= x <11.5 mIU/mL: Indeterminate >=11.5 mIU/mL: Reactive Non Reactive: Inconsistent with immunity less than <10 mIU/mL Reactive: Consistent with immunity greater than or equal to 10 mIU/mL Performed By: #### L 501.9985, BTSPAT, M100.651, L3100.0300, L100.0100, L3890.6006, L500.2500, L3890.6202, L3890.6301 #### [facility] [address] [place], [place], [address] Hepatitis C Antibodyon 09-23 Hepatitis C Ab Non-Reactive Normal Nonreactive [facility] Comment on above: Result Comment: Reac tive: Presumptive evidence of antibodies to HCV. Follow CDC recommendations for supplemental testing. Non-Reactive: Antibodies to HCV were not detected; does not exclude the possibility of exposure to HCV Reactive Results are presumptive evidence of antibodies to HCV. Follow CDC recommendations for supplemental testing. Order confirmation testing: HCV Quant by PCR testing - HCVPCR lc#[id number] Non Reactive: < 0.8 Equivocal: >/= 0.8 [...] HCV Quant by PCR testing - HCVPCR lc#[id number] Performed By: #### L 501.9985, BTSPAT, M100.651, L3100.0300, L100.0100, L3890.6006, L500.2500, L3890.6202, L3890.6301 ####[facility] [address] [place], [address] Iron measurement (mass/mass) Ordered By: Paul Kendrick on 09-23-2024 Iron (Unsp spec) [Mass/Mass] 48 ug/dL Low 50-170 [facility] Iron+Iron Binding Capacityon 09-23-2024 Iron [Mass/Vol] 48 ug/dL Low 50-170 [facility] Comment on above: Performed By: #### L 506.0200, L503.0106, L503.6030, L500.4050, L3300.8000 ####[facility] [address] [place], [address] IRON SATURATION 13.0 Normal 13-59 [facility] Comment on above: Performed By: #### L 506.0200, L503.0106, L503.6030, L500.4050, L3300.8000 ####[facility] [address] [place], [address] TIBC 361 ug/dL Normal 250-450 [facility] Comment on above: Performed By: #### L 506.0200, L503.0106, L503.6030, L500.4050, L3300.8000 ####[facility] [address] [place], [address] UIBC 313 ug/dL Normal 228-428 [facility] Comment on above: Performed By: #### L 506.0200, L503.0106, L503.6030, L500.4050, L3300.8000 ####[facility] [address] [place], [address] Laboratory - Chemistry and C hemistry - challengeOrdered By: Paul Kendrick on 09-23-2024 AST [Catalytic activity/Vol] 23 U/L <32 [facility] MRSA/SAID NASAL SCREENon MRSA+SAID SCRN Reason for Exam: Salima ruy MRSA MRSA Negative S. AUREUS S. aureus Negative Normal [facility] Comment on above: Performed By: #### L 501.9985, BTSPAT, M100.651, L3100.0300, L100.0100, L3890.6006, L500.2500, L3890.6202, L3890.6301 ####[facility] [address] [place], [place], [address] Magnesiumon 09-23-2024 Magnesium [Mass/Vol] 2.1 mg/dL Normal 1.5-2.2 [facility] Comment on above: Performed By: #### L 501.5200 ####[facility] [address] [place], [place], [id number] No Panel InformationOrdered By: Paul Kendrick on 09-23-2024 Unsaturated Iron Binding Capacity 313 ug/dL 228-428 [facility] Potassium measurement (mass/ volume)Ordered By: Paul Kendrick on 09-23-2024 Potassium (Unsp spec) [Mass/Vol] 3.8 mmol/L 3.3-5.1 [facility] Serum creatinine measurement (mass/volume)Ordered By: Paul Kendrick on 09-23-2024 Creatinine [Mass/Vol] 0.89 mg/dL 0.70-1.20 [facility] Serum globulin measurementOr dered By: Paul Kendrick on 09-23-2024 Globulin (S) [Mass/Vol] 2.6 g/dL 2.2-4.2 [facility] Serum glucose measurement (m ass/volume)Ordered By: Paul Kendrick on 09-23-2024 Glucose [Mass/Vol] 94 mg/dL 70-99 [place] Serum or plasma alanine barrow otransferase (ALT) measurementOrdered By: Paul Kendrick on 09-23-2024 ALT [Catalytic activity/Vol] 24 U/L <35 [facility] Serum or plasma albumin sheryl urement (mass/volume)Ordered By: Paul Kendrick on 09-23-2024 Albumin [Mass/Vol] 4.0 g/dL 3.5-5.0 [place] Serum or plasma albumin/glob ulin mass ratioOrdered By: Paul Kendrick on 09-23-2024 Albumin/Globulin [Mass ratio] 1.6 {ratio} 0.9-2.4 [facility] Serum or plasma alkaline suzy sphatase measurementOrdered By: Paul Kendrick on 09-23-2024 ALP [Catalytic activity/Vol] 72 U/L 35-104 [facility] Serum or plasma calcium sheryl urement (mass/volume)Ordered By: Paul Kendrick on 09-23-2024 Calcium [Mass/Vol] 8.8 mg/dL 7.6-11.0 [place] Serum or plasma iron saturat ion measurement (mass fraction)Ordered By: Paul Kendrick on 09-23-2024 Iron saturation [Mass fraction] 13.0 % 13-59 [facility] Serum or plasma urea nitroge n measurement (mass/volume)Ordered By: Paul Kendrick on 09-23-2024 Urea nitrogen [Mass/Vol] 13 mg/dL 4-19 [facility] Sodium levelOrdered By: Pepe ahrveym Aroldo on 09-23-2024 Sodium [Moles/Vol] 140 mmol/L 133-145 [place] Total proteinOrdered By: Erick Kendrick on 09-23-2024 Protein [Mass/Vol] 6.6 g/dL 5.9-8.4 [place] Type AND Screen - PAT ONLYon 09-23-2024 ABO and Rh group Nom (Bld) Blood group A Rh(D) positive Normal [facility] Comment on above: Order Comment: Surge ry Date: 09/30/24 Reason for Laboratory Test PREOP [id number] No N N S LUMBER DISCECTOMY L5-S1 Performed By: #### L 501.9985, BTSPAT, M100.651, L3100.0300, L100.0100, L3890.6006, L500.2500, L3890.6202, L3890.6301 #### [facility] [address] [place], [place], [address] Vitamin B12on 09-23-2024 Cobalamin (Vitamin B12) [Mass/Vol] 1160 pg/mL High 180-914 [facility] Comment on above: Performed By: #### L 506.0200, L503.0106, L503.6030, L500.4050, L3300.8000 ####[facility] [address] [place], [address] Vitamin B12 ser/plasOrdered By: Paul Kendrick on 09-23-2024 Cobalamin (Vitamin B12) [Mass/Vol] 1160 pg/mL High 180-914 [facility] CNPNon 09-22-2024 CNPN Telephone (TENZIN) -- CITLALI BECKWITH ([id number]) 1985 F Date Time Provider Department 09/22/24 [facility] During your visit today, we recorded the [...] microdiscectomy on 09/30/[address] Pizano at [facility]. - No previous anesthesia complications reported. - Ordered EKG to ensure cardiac stability prior to surgery. EKG normal with NSR - Medical clearance form completed. Pt is going to call and see if that will suffice and if it doesn't, she will send [facility] ms requesting report. Mercedez Rojas RN 09/22/2024 9:40 AM Signed Called pt and got phone number for nurse at [facility]. Called and spoke with Carmita and fax # is [phone]. She would like the actual copy of [...] Fully Assessed Reason for Visit: Patient Question [0072] Cmt: Re: EKG report Prescriptions as of [...] times a day as needed. - Acidophilus-Pectin, [place] 25 million cell -100 mg tab Take [...] [Z72.0] 08/26/2007 Routine general medical examination at [facility]*06/30/2009 09/13/2015 Class: Chronic Routine gynecological examination [Z01.419] [...] in pregna (more content not included)... Normal [facility] CNOVon 09-14-2024 CNOV Office Visit (FAMPWS ) -- CITLALI BECKWITH ([id number]) 1985 F Date Time Provider Department 09/14/24 6:40 PM [facility] During your visit today, we recorded the following information about you: Pulse Blood pressure Weight 95/minute 122/64 93.4 kg Paul Kendrick MD 09/14/2024 7:44 PM Signed - Expect a phone call on September 14 to confirm your surgery time for the L5-S1 left microdiscectomy with Dr. Pizano at [facility], and another call the day before. If you do not receive these calls, contact the surgical assist?s office. - Arrange blood tests (complete blood [...] for L5-S1 left microdiscectomy on 09/30/2024 at [facility]. - No known personal or family history [...] three times a day as needed. Acidophilus-Pectin, [place] 25 million cell -100 mg tab Take [...] Left 03/11/2020 (more content not included)... Normal [facility] UA DIP, URINE (POC)on 2024 BILIRUBIN UA (POCT) Negative Negative [facility] CLARITY UA (POCT) Clear [facility] COLOR UA (POCT) Yellow [facility] GLUCOSE UA (POCT) Negative Negative mg/dL [facility] Hemoglobin Ql (U) Negative Negative [facility] Interpretation and review of laboratory results Abnormal [facility] KETONE UA (POCT) Negative Negative mg/dL [facility] LEUKOCYTES UA (POCT) Negative Negative [facility] NITRITE UA (POCT) Negative Negative [facility] PH UA (POCT) 6.5 4.5 - 8.0 [facility] Protein Ql (U) Trace Abnormal Negative mg/dL [facility] SPECIFIC GRAVITY UA (POCT) 1.025 1.005 - 1.030 [facility] UROBILINOGEN UA (POCT) 1 Normal E.U./dL [facility] Location:[address], [place], [address] [facility] POINT OF CARE [facility] Orthopedic Visit Reporton Orthopedic Visit Report [facility] [place] [address] OFFICE VISIT Date of Service: 09/08/24 MR#: [id number] Acct: [id number] Name: CITLALI BECKWITH Rep #: [id number] : 1985 Provider: Dr. Barney Rajan MD Age/Sex: 38/F Location: [facility].JOSSIE Status: Signed Intake [...] by me, Dr. Barney Rajan MD 09/08/24 1761. Part of today???s visit was documented by Violeta EDUARDO and May Ramsey RN, acting as scribe. CITLALI BECKWITH is a [...] quality of life. 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 She states that in March Dr. Blas gave her injection that helped but only for 2 weeks then about 3 weeks ago she has an injection by Dr. Roth that has been seeming to last a little longer. She has been doing PT here at [facility] which seems to be helping some with [...] raise test (more content not included)... Normal [facility] Bacteria Ur Culton 5 Bacteria identified Cx [...] , Intermediate >32 , Resistant >64 Abnormal [facility] Comment on above: Performed By: #### 6 - ####[facility] [id number] [address] [facility] CNOVon 09-01-2024 CNOV Office Visit (FAMPWS ) -- CITLALI BECKWITH ([id number]) 1985 F Date Time Provider Department 09/01/24 11:40 AM [facility] During your visit today, we recorded the [...] three times a day as needed. Acidophilus-Pectin, [place] 25 million cell -100 mg tab Take [...] Hypertension Maternal Grandfather CHF Heart Maternal Grandfather [place] Cancer Paternal Grandmother throat cancer Stroke Paternal [...] SYSTEMS Co (more content not included)... Normal [facility] UA DIP, URINE (POC)on 2024 BILIRUBIN UA (POCT) Negative Negative [facility] CLARITY UA (POCT) Slightly Cloudy Cl [facility] COLOR UA (POCT) Yellow [facility] GLUCOSE UA (POCT) Negative Negative mg/dL [facility] Hemoglobin Ql (U) Moderate Abnormal Negative [facility] Interpretation and review of laboratory results Abnormal [facility] KETONE UA (POCT) Negative Negative mg/dL [facility] LEUKOCYTES UA (POCT) Trace Abnormal Negative [facility] NITRITE UA (POCT) Positive Abnormal Negative [facility] PH UA (POCT) 7 4.5 - 8.0 [facility] Protein Ql (U) Negative Negative mg/dL [facility] SPECIFIC GRAVITY UA (POCT) 1.02 1.005 - 1.030 [facility] UROBILINOGEN UA (POCT) 2 Abnormal Normal E.U./dL [facility] Location:[address], [id number] [place] [address] POINT OF CARE [facility] L/S Spine Bending Flex/Ramseur 05-05-2024 L/S Spine Bending Flex/Ext [facility] Imaging Services [address] [place] [address] L/S Spine Bending Flex/Ext MR#: [id number] Acct: [id number] Name: CITLALI BECKWITH Rep #: [id number] : 1985 F 38 From: Abilio Tran DO PCP: Dr. Paul Kendrick MD Status: DEP [facility] Study: L/S Spine Bending Flex/Ext Date of Exam: 05/05 Exam# [id number] Ordering Dr: Nupur Canales PROCEDURE: L/S SPINE [...] L5-S1 level, as described Reading [facility] CC: MARCI [place]; Dr. Paul Kendrick MD Management Scientist: Signed Normal [facility] Orthopedic Visit Reporton Orthopedic Visit Report [facility] [address] [place] [address] OFFICE VISIT Date of Service: 05/05/24 MR#: [id number] Acct: [id number] Name: CITLALI BECKWITH Rep #: [id number] : 1985 Provider: Dr. Barney Rajan MD Age/Sex: 38/F Location: [facility].[place]OSSI[facility] Status: Signed Intake [...] mg PO 05/05/24 05/05/24 History capsule,extended release [facility] Medical History Right renal stone Wears glasses [...] by Violeta EDUARDO, acting as scribe. CITLALI BCEKWITH is a 38 year old F here [...] had an MRI and xrays done at [facility] of her lumbar spine. She states that in March Dr. Blas gave her injection that helped but only for 2 weeks then about 3 weeks ago she has an injection by Dr. Roth that has been seeming to last a little longer. She has been doing PT here at [facility] which seems to be helping some with [...] been usin (more content not included)... Normal [facility] Spine Lumbar (Routine)on Spine Lumbar (Routine) [facility] Imaging Services [address] [place] [address] Spine Lumbar (Routine) MR#: [id number] Acct: [id number] Name: CITLALI BECKWITH Rep #: [id number] : 1985 F 38 From: Abilio Sparrow MD PCP: Dr. Paul Kendrick MD Status: REG CLI Study: Spine Lumbar (Routine) Date of Exam: 04/13/24 Exam# [id number] Ordering Dr: Shayne Blas MD [id number] STUDY: MRI LUMBAR SPINE WITHOUT CONTRAST REASON [...] Shayne Blas MD; Dr. Paul Kendrick MD Management Scientist: Signed Normal [facility] Inital Evaluation (1) - PTon 04-10-2024 Inital Evaluation (1) - PT [facility] Physical Therapy [facility] [address] [place] [address] / REHABILITATION SERVICES INITIAL EVALUATION MR#: [id number] Acct: [id number] Name: CITLALI BECKWITH Rep #: [id number] : 1985 38 From: Ambrose Calixto PT, [...] has had x-rays, pain injections, and care director recently which has not given her any relief. Pt reports her pain is severe in nature, and notes her pain radiates down her L LE all the way to her foot. Pt notes her L foot is numb today. Pt notes she continues to have sleep difficulty secondary to pain. Pt works for the formerly [employer] in a building with 3 [...] to be FAXED BACK to us at [phone] for Medicare purposes. For Medicare only, by signing this I certify the plan of care. Please let me know if there are questions or concerns regarding this plan of care. Physician Signature: Date: 04/10/24 0703 CC: Dr. Shayne Blas MD; Dr. Paul Kendrick MD [facility] Signed [facility] 03[facility]04[facility]20[facility] CITLALI BECKWITH ([id number]) 1985 F Date Time Provider Department 03/04/24 PAUL KENDRICK During your visit today, we recorded the following information about you: Gina Kim RN 03/04/2024 11:11 AM Signed Patient calls to request referral to pain management, demographics, and x-ray results be faxed to Dr. Roth. Faxed per request to [phone]. Gina Kim RN Allergies As of Date: [...] Date Reviewed: 01/13/2024 Reviewed by: Marry Paredes APRN.AERIAL LINEMAN - Fully Assessed Reason for Visit: Consult [...] 90 DAYS, THEN AFTER intercourse - Acidophilus-Pectin, [place] 25 million cell -100 mg tab Take [...] [Z72.0] 08/26/2007 Routine general medical examination at [facility]*06/30/2009 09/13/2015 Class: Chronic Routine gynecological examination [Z01.419] [...] [R87*05/29/2023 Encount (more content not included)... Normal [facility] Bilirubin Test strip Ql (U)O rdered By: Virginia Peter on 03-03-2024 Bilirubin Ql (U) 1 mg/dL High Negative [facility] Comment on above: COLOR OF URINE MAY A FFECT DIPSTICK RESULTS. Calcium oxalate crystals LM Ql (Urine sed)Ordered By: Virginia Peter on 03-03-2024 Urine Calcium Oxalate Crystals 1+ /hpf [facility] Emergency Department Summary on 03-03-2024 Emergency Department Summary [facility] Medical Records Department [address] [place] [address] Emergency Department Summary 03/03/24 MR#: [id number] Acct: [id number] Name: CITLALI BECKWITH Rep #: [id number] : 1985 38 From: Virginia Peter DO [...] in her back is over her tailbone. [facility] Medical History Right renal stone Wears [...] LLE Psychiatric (more content not included)... Normal [facility] Epithelial cells.squamous LM Ql (Urine sed)Ordered By: Virginia Peter on 03-03-2024 Epithelial cells.squamous LM.HPF (Urine sed) [#/Area] 5 /[HPF] 5-10 [facility] Glucose Ql (U)Ordered By: Ronald Peter on 03-03-2024 Urine Glucose (UA) Normal mg/dl Normal [facility] Ketones Test strip Ql (U)Ord ered By: Virginia Peter on 03-03-2024 Ketones Ql (U) Negative Negative [facility] Microscopic analysis of urin e for red blood cells (RBC)Ordered By: Virginia Peter on 03-03-2024 Urine RBC 0-5 SEEN /hpf 0-5 [facility] Mucus LM Ql (Urine sed)Order ed By: Virginia Peter on 03-03-2024 Mucus Ql (Urine sed) 0 SEEN /hpf [facility] Nitrite Test strip Ql (U)Ord ered By: Virginia Peter on 03-03-2024 Nitrite Ql (U) Negative Negative [facility] ,Urineon 03-03-2024 Beta HCG ( test) Ql (U) Negative Normal [facility] Comment on above: Order Comment: NENITA TYSONOR TO SPECIFY Result Comment: Very dilute urine specimens, as indicated by a low specific gravity, may not contain outside dealer sales representative levels of hCG. If is still suspected, a first morning urine specimen should be collected 48 hours later and tested. Performed By: #### L 400.7600, L400.0001 ####[facility] [address] [place], [address] Protein Test strip Ql (U)Ord ered By: Virginia Peter on 03-03-2024 Protein Ql (U) 30 mg/dl High Negative [facility] Urinalysis, Completeon 03-03 BACTERIA 2+ /hpf Normal None Seen [facility] Comment on above: Order Comment: NENITA TYSONOR TO SPECIFY Performed By: #### L 400.7600, L400.0001 ####[facility] [address] [place], [address] CA OX CRYSTAL 1+ /hpf Normal [facility] Comment on above: Order Comment: NENITA TYSONOR TO SPECIFY Performed By: #### L 400.7600, L400.0001 ####[facility] [address] [place], [address] EPI,SQUAMOUS 5-10 SEEN Normal 5-10 [facility] Comment on above: Order Comment: NENITA CTOR TO SPECIFY Performed By: #### L 400.7600, L400.0001 ####[facility] [address] [place], [address] RBC 0-5 SEEN Normal 0-5 [facility] Comment on above: Order Comment: NENITA CTOR TO SPECIFY Performed By: #### L 400.7600, L400.0001 ####[facility] [address] [place], [address] WBC 0-5 SEEN Normal 0-5 [facility] Comment on above: Order Comment: NENITA CTOR TO SPECIFY Performed By: #### L 400.7600, L400.0001 ####[facility] [address] [place], [address] Mucus Ql (Urine sed) 0 SEEN Normal [facility] Comment on above: Order Comment: NENITA CTOR TO SPECIFY Performed By: #### L 400.7600, L400.0001 ####[facility] [address] [place], [address] Urine blood detectionOrdered By: Virginia Peter on 03-03-2024 Urine Occult Blood 50 /ul High Negative [place] Urine clarityOrdered By: Linsey Peter on 03-03-2024 Clarity (U) Sl. Cloudy Clear [facility] Urine color determinationOrd ered By: Virginia Peter on 03-03-2024 Color (U) Yellow Yellow [facility] Urine leukocyte esterase det ection by dipstickOrdered By: Virginia Peter on 03-03-2024 Leukocyte esterase Test strip Ql (U) 25 /ul High Negative [facility] Urine pHOrdered By: Virginia forrest on 03-03-2024 pH (U) 6.0 [pH] 5.0 - 8.0 [facility] [facility] Urine testOrdered By: Virginia Peter on 03-03-2024 HCG ( test) Ql (U) Negative [facility] Comment on above: Very dilute urine sp ecimens, as indicated by a low specificgravity, may not contain outside dealer sales representative levels of hCG. If is still suspected, a first morning urinespecimen should be collected 48 hours later and tested. Urine sediment bacteria coun t by microscopy (number/high power field)Ordered By: Virginia Peter on 03-03-2024 Bacteria LM.HPF (Urine sed) [#/Area] 2 /[HPF] None Seen [facility] Urine specific gravity measu rementOrdered By: Virginia Peter on 03-03-2024 Specific gravity (U) [Rel density] 1.020 1.002-1.030 [facility] Urobilinogen Ql (U)Ordered B y: Virginia Peter on 03-03-2024 Urobilinogen (U) [Mass/Vol] 4 mg/dL High Normal [facility] White blood cell countOrdere d By: Virginia Peter on 03-03-2024 Urine WBC 0-5 SEEN /hpf 0-5 [facility] CNPNon 03-02-2024 CNPN Telephone (FAMPWS) -- CITLALI BECKWITH ([id number]) 1985 F Date Time Provider Department 03/02/24 PAUL KENDRICK [facility] During your visit today, we recorded the [...] any injury. Had x-ray completed today at [facility] but not resulted yet. Is asking about [...] for the results from the x-rays from [facility]. CARINA Dhaliwal Lisa, MA 03/03/2024 8:42 AM [...] Date Reviewed: 01/13/2024 Reviewed by: Marry Paredes APRN.AERIAL LINEMAN - Fully Assessed Reason for Visit: Back Pain [12] Primary Visit Diagnosis:Lumbar radiculopathy [M54.16] Order(s):CONSULT TO PAIN MGT [597073] Order #: [id number]: 1 FUTURE Prescriptions as of 03/05/2024 - [...] 90 DAYS, THEN AFTER intercourse - Acidophilus-Pectin, [place] 25 million cell -100 mg tab Take [...] 08/26/2007 Routine (more content not included)... Normal [facility] Lumbar Spine 2 or 3 Viewson 03-02-2024 Lumbar Spine 2 or 3 Views [facility] Services [address] [address] Lumbar Spine 2 or 3 Views MR#: [id number] Acct: [id number] Name: CITLALI BECKWITH Rep #: [id number] : 1985 F 38 From: Jace Raines MD PCP: Dr. Paul Kendrick MD Status: REG CLI Study: Lumbar Spine 2 or 3 Views Date of Exam: Exam# [id number] Ordering Dr: Sav Montes D.C. [id number] EXAM: XR LUMBOSACRAL SPINE, 2 OR 3 [...] CC: GARCIA Montes; Dr. Paul Kendrick MD Management Scientist: Signed [facility] 01-15-[address] [facility] Telephone (FAMPWS) -- CITLALI BECKWITH ([id number]) 1985 F Date Time Provider Department 01/15/24 [facility] During your visit today, we recorded the [...] Date Reviewed: 01/13/2024 Reviewed by: Marry Paredes APRN.AERIAL LINEMAN - Fully Assessed Reason for Visit: Insurance [...] 90 DAYS, THEN AFTER intercourse - Acidophilus-Pectin, [place] 25 million cell -100 mg tab Take [...] [Z72.0] 08/26/2007 Routine general medical examination at [facility]*06/30/2009 09/13/2015 Class: Chronic Routine gynecological examination [Z01.419] [...] with positiv (more content not included)... Normal [facility] CNOVon 01-13-2024 CNOV Office Visit (FAMPWS ) -- CITLALI BECKWITH ([id number]) 1985 F Date Time Provider Department 01/13/24 3:40 PM MARRY PAREDES During your visit today, we recorded the following information about you: Pulse Respiration Blood pressure Weight 71/minute 16/minute 120/76 91.2 kg Marry Paredes APRN.AERIAL LINEMAN 01/13/2024 4:30 PM Signed Chief Reason For [...] Comment: Added automatically from request for surgery [id number] Rls (Restless Legs Syndrome) - 08/29/2016 Anemia [...] 01/2020 b (more content not included)... Normal [facility] CNPNon 12-18-2023 CNPN Telephone (FAMPWS) -- CITLALI BECKWITH ([id number]) 1985 F Date Time Provider Department 12/18/23 PAUL KENDRICK [facility] During your visit today, we recorded the [...] send it to Kristin Tejeda at the [facility], fax # [phone]. Pt states she is due to have an injection today. Paul Kendrick MD 12/18/2023 9:51 AM Signed written Liliana Smith RN 12/18/2023 11:10 AM Signed Letter printed and faxed to Kristinyissel Tejeda at the [facility], fax # [phone]. Allergies As of Date: 12/18/2023 Noted Allergy [...] Date Reviewed: 05/17/2023 Reviewed by: Evelin Lund APRN.AERIAL LINEMAN - Fully Assessed Reason for Visit: Injection [...] 90 DAYS, THEN AFTER intercourse - Acidophilus-Pectin, [place] 25 million cell -100 mg tab Take [...] [Z72.0] 08/26/2007 Routine general medical examination at [facility]*06/30/2009 09/13/2015 Class: Chronic Routine gynecological examination [Z01.419] [...] B12 de (more content not included)... Normal [facility] CBC W Auto Differential pane l (Bld)on 10-03-2022 Basophils (Bld) [#/Vol] 0.06 10*3/uL <0.11 k/uL [facility] Basophils/100 WBC (Bld) 1.0 % [facility] Differential cell count method Nom (Bld) Auto [facility] Eosinophils (Bld) [#/Vol] 0.13 10*3/uL <0.46 k/uL [facility] Eosinophils/100 WBC (Bld) 2.2 % [facility] Erythrocyte distribution width (RBC) [Ratio] 12.2 % 11.5 - 15.0 % [facility] Hematocrit (Bld) [Volume fraction] 37.5 % 36.0 - 46.0 % [facility] Hemoglobin (Bld) [Mass/Vol] 12.5 g/dL 11.5 - 15.5 g/dL [facility] Immature granulocytes (Bld) [#/Vol] <0.10 k/uL [facility] Immature granulocytes/100 WBC (Bld) 0.2 % [facility] Lymphocytes (Bld) [#/Vol] 1.73 10*3/uL 1.00 - 4.00 k/uL [facility] Lymphocytes/100 WBC (Bld) 29.3 % [facility] MCH (RBC) [Entitic mass] 30.6 pg 26.0 - 34.0 pg [facility] MCHC (RBC) [Mass/Vol] 33.3 g/dL 30.5 - 36.0 g/dL [facility] MCV (RBC) [Entitic vol] 91.9 fL 80.0 - 100.0 fL [facility] Monocytes (Bld) [#/Vol] 0.47 10*3/uL <0.87 k/uL [facility] Monocytes/100 WBC (Bld) 8.0 % [facility] Neutrophils (Bld) [#/Vol] 3.50 10*3/uL 1.45 - 7.50 k/uL [facility] Neutrophils/100 WBC (Bld) 59.3 % [facility] Nucleated RBC (Bld) [#/Vol] <0.01 k/uL [facility] Nucleated RBC/100 WBC (Bld) [Ratio] 0.0 /100 WBC [facility] Platelet mean volume (Bld) [Entitic vol] 10.5 fL 9.0 - 12.7 fL [facility] Platelets (Bld) [#/Vol] 195 10*3/uL 150 - 400 k/uL [facility] RBC (Bld) [#/Vol] 4.08 10*6/uL 3.90 - 5.2 0 m/uL [facility] WBC (Bld) [#/Vol] 5.90 10*3/uL 3.70 - 11. 00 k/uL [facility] Comprehensive metabolic 2000 panelon 10-03-2022 Albumin [Mass/Vol] 4.5 g/dL 3.9 - 4.9 g/dL [facility] ALP [Catalytic activity/Vol] 57 U/L 34 - 123 U/L [facility] ALT [Catalytic activity/Vol] 25 U/L 7 - 38 U/L [facility] Anion gap [Moles/Vol] 12 mmol/L 9 - 18 mmol/L [facility] AST [Catalytic activity/Vol] 24 U/L 13 - 35 U/L [facility] Bilirubin [Mass/Vol] 1.9 mg/dL High 0.2 - 1 .3 mg/dL [facility] Calcium [Mass/Vol] 8.9 mg/dL 8.5 - 10. 2 mg/dL [facility] Chloride [Moles/Vol] 104 mmol/L 97 - 10 5 mmol/L [facility] CO2 [Moles/Vol] 23 mmol/L 22 - 30 mmol/L [facility] Creatinine [Mass/Vol] 0.76 mg/dL 0.58 - 0.96 mg/dL [facility] Estimated Glomerular Filtration Rate 104 mL/min/1.73m >=60 mL/min/1.73m [facility] Glucose [Mass/Vol] 97 mg/dL 74 - 99 mg/dL [facility] Potassium [Moles/Vol] 3.9 mmol/L 3.7 - 5.1 mmol/L [facility] Protein [Mass/Vol] 6.3 g/dL 6.3 - 8.0 g/dL [facility] Sodium [Moles/Vol] 139 mmol/L 136 - 144 mmol/L [facility] Urea nitrogen [Mass/Vol] 15 mg/dL 7 - 21 mg/dL [facility] FOLATE SERUMon 10-03-2022 Folate [Mass/Vol] >4.7 ng/mL [facility] Iron and Iron binding capaci ty panelon 10-03-2022 Iron [Mass/Vol] 72 ug/dL 41 - 186 ug/dL [facility] Iron binding capacity [Mass/Vol] 337 ug/dL 232 - 386 ug/dL [facility] Iron/TIBC [Molar ratio] 21.4 % 15.0 - 57.0 % [facility] VITAMIN B12 BLOODon 10-04-19 Cobalamin (Vitamin B12) [Mass/Vol] High 232 - 1,245 pg/mL [facility] Absolute lymphocyte counton 06-23-2021 Lymphocytes Auto (Unsp spec) [#/Vol] 0.81 10*3/uL 0.83-4.51 [facility] Work Phone: Basophil percentageon 2021 Basophils/100 WBC (Bld) 0.2 % 0-1 [facility] Work Phone: Eosinophils/100 WBC (Bld) 0.6 % 0-5 [facility] Work Phone: Neutrophils (Bld) [#/Vol] 8.4 10*3/uL 2.0-7.7 [facility] Work Phone: Neutrophils/100 WBC (Bld) 84.3 % 47-70 [facility] Work Phone: WBC (Bld) [#/Vol] 10.0 10*3/uL 4.4-11.0 [facility] Work Phone: Blood erythrocytes count (nu mber/volume)on 06-23-2021 RBC (Bld) [#/Vol] 3.69 10*6/uL 4.2-5.4 [facility] Work Phone: Blood hemoglobin measurement (mass/volume)on 06-23-2021 Hemoglobin (Bld) [Mass/Vol] 11.6 g/dL 12.0-15.0 [facility] Work Phone: Blood lymphocytes/100 leukoc yteson 06-23-2021 Lymphocytes/100 WBC (Bld) 8.1 % 19-41 [facility] Work Phone: Blood monocytes/100 leukocyt eson 06-23-2021 Monocytes/100 WBC (Bld) 6.5 % 0-10 [facility] Work Phone: Blood platelet mean volumeon 06-23-2021 Platelet mean volume (Bld) [Entitic vol] 10.2 fL 6.2-12.0 [facility] Work Phone: Color of specimen determinat ionon 06-23-2021 Color (Unsp spec) Not Reportable [facility] Work Phone: Determination of erythrocyte mean corpuscular volume (MCV)on 06-23-2021 MCV (RBC) [Entitic vol] 91.1 fL 81-99 [facility] Work Phone: Hematocrit Auto (Bld) [Volum e fraction]on 06-23-2021 Hematocrit (Bld) [Volume fraction] 33.6 % 37-47 [facility] Work Phone: Laboratory - Coagulationon 0 06-23-2021 aPTT Coag (Bld) [Time] 29.9 s 24.1-36.2 [facility] Work Phone: Laboratory - Hematology and Cell countson 06-23-2021 Erythrocyte distribution width (RBC) [Entitic vol] 42.0 fL 35.1-43.9 [facility] Work Phone: Erythrocyte distribution width (RBC) [Ratio] 12.7 % 11.6-14.6 [facility] Work Phone: Immature granulocytes/100 WBC (Bld) 0.300 % 0.0-0.9 [facility] Work Phone: Comment on above: IG% - Immature Granu locytes (promyelocytes, myelocytes and metamyelocytes) > 1% indicates that a LEFT SHIFT is Present. MCH (RBC) [Entitic mass] 31.4 pg 27.0-32.0 [facility] Work Phone: Nucleated RBC/100 WBC (Bld) [Ratio] 0 % 0-5 [facility] Work Phone: MCHC Auto (RBC) [Mass/Vol]on 06-23-2021 MCHC (RBC) [Mass/Vol] 34.5 g/dL 32-36 [facility] Work Phone: Measurement of weight of sto neon 06-23-2021 Weight (Stone) Not Reportable [facility] Work Phone: Origin of Stoneon 06-23-2021 Origin Nom (Stone) See comment [facility] Work Phone: Comment on above: TEST RESULT [...] separate coverComment: Physician questions regarding [facility] at: [phone].Please note: Calculi report will follow via computer, mail or courierdelivery.Disclaimer: This test was developed and its performance characteristicsdetermined by [employer]. It has not been cleared or approvedby the Food and Drug Administration. TESTING PERFORMED AT [facility]. ORIGINAL REPORT ON FILE IN LAB CONTAINS ADDITIONAL TEST SITE INFORMATION. Platelets bldon 06-23-2021 Platelets (Bld) [#/Vol] 142 10*3/uL 150-450 [facility] Work Phone: Size of stoneon 06-23-2021 Size (Stone) [Entitic vol] Not Reportable [facility] Work Phone: Absolute lymphocyte counton 06-22-2021 Lymphocytes Auto (Unsp spec) [#/Vol] 1.58 10*3/uL 0.83-4.51 [facility] Work Phone: Basophil percentageon 2021 Basophil percentage >100 SEEN /hpf 0-5 [facility] Work Phone: Basophils/100 WBC (Bld) 0.5 % 0-1 [facility] Work Phone: Chloride [Moles/Vol] 106 mmol/L 98-107 [facility] Work Phone: Eosinophils/100 WBC (Bld) 1.3 % 0-5 [facility] Work Phone: Glucose [Mass/Vol] 97 mg/dL 74-106 [place] Work Phone: Neutrophils (Bld) [#/Vol] 3.8 10*3/uL 2.0-7.7 [facility] Work Phone: Neutrophils/100 WBC (Bld) 63.4 % 47-70 [facility] Work Phone: Potassium [Moles/Vol] 3.5 mmol/L 3.5-5.1 [facility] Work Phone: Sodium [Moles/Vol] 139 mmol/L 136-145 [place] Work Phone: WBC (Bld) [#/Vol] 6.0 10*3/uL 4.4-11.0 [place] Work Phone: Beta hCG serum qualon 2021 Beta HCG ( test) Ql Negative [facility] Work Phone: Bilirubin Test strip Ql (U)o n 06-22-2021 Bilirubin Ql (U) 1 mg/dL Negative [facility] Work Phone: Comment on above: COLOR OF URINE MAY A FFECT DIPSTICK RESULTS. Blood erythrocytes count (nu mber/volume)on 06-22-2021 RBC (Bld) [#/Vol] 4.33 10*6/uL 4.2-5.4 [facility] Work Phone: Blood hemoglobin measurement (mass/volume)on 06-22-2021 Hemoglobin (Bld) [Mass/Vol] 13.7 g/dL 12.0-15.0 [facility] Work Phone: Blood lymphocytes/100 leukoc yteson 06-22-2021 Lymphocytes/100 WBC (Bld) 26.6 % 19-41 [facility] Work Phone: Blood monocytes/100 leukocyt eson 06-22-2021 Monocytes/100 WBC (Bld) 7.9 % 0-10 [facility] Work Phone: Blood platelet mean volumeon 06-22-2021 Platelet mean volume (Bld) [Entitic vol] 10.4 fL 6.2-12.0 [facility] Work Phone: Determination of erythrocyte mean corpuscular volume (MCV)on 06-22-2021 MCV (RBC) [Entitic vol] 91.2 fL 81-99 [facility] Work Phone: Hematocrit Auto (Bld) [Volum e fraction]on 06-22-2021 Hematocrit (Bld) [Volume fraction] 39.5 % 37-47 [facility] Work Phone: Ketones Test strip Ql (U)on 06-22-2021 Ketones Ql (U) 5 mg/dl Negative [facility] Work Phone: Laboratory - Chemistry and C hemistry - challengeon 06-22-2021 HCG ( test) Ql (U) Negative [facility] Work Phone: Comment on above: Very dilute urine sp ecimens, as indicated by a low specificgravity, may not contain outside dealer sales representative levels of hCG. If is still suspected, a first morning urinespecimen should be collected 48 hours later and tested. CO2 [Moles/Vol] 26.0 mmol/L 21.0-32.0 [facility] Work Phone: HCG ( test) Ql (U) Negative [facility] Work Phone: Comment on above: Very dilute urine sp ecimens, as indicated by a low specificgravity, may not contain outside dealer sales representative levels of hCG. If is still suspected, a first morning urinespecimen should be collected 48 hours later and tested. Urea nitrogen/Creatinine [Mass ratio] 22.6 mg/mg 10-20 [facility] Work Phone: Laboratory - Hematology and Cell countson 06-22-2021 Erythrocyte distribution width (RBC) [Entitic vol] 41.3 fL 35.1-43.9 [facility] Work Phone: Erythrocyte distribution width (RBC) [Ratio] 12.6 % 11.6-14.6 [facility] Work Phone: Immature granulocytes/100 WBC (Bld) 0.300 % 0.0-0.9 [facility] Work Phone: Comment on above: IG% - Immature Granu locytes (promyelocytes, myelocytes and metamyelocytes) > 1% indicates that a LEFT SHIFT is Present. MCH (RBC) [Entitic mass] 31.6 pg 27.0-32.0 [facility] Work Phone: Nucleated RBC/100 WBC (Bld) [Ratio] 0 % 0-5 [facility] Work Phone: MCHC Auto (RBC) [Mass/Vol]on 06-22-2021 MCHC (RBC) [Mass/Vol] 34.7 g/dL 32-36 [facility] Work Phone: Mucus LM Ql (Urine sed)on Mucus Ql (Urine sed) 0 SEEN /hpf [facility] Work Phone: Nitrite Test strip Ql (U)on 06-22-2021 Nitrite Ql (U) Negative Negative [facility] Work Phone: No Panel Informationon 06-22 Estimated Creatinine Clearance Calc 93.31 ml/min [facility] Work Phone: Estimated GFR (MDRD) Amer 112 mL/min >60 [facility] Work Phone: Comment on above: GFR Calc Estimated GFR (MDRD) Non-Af Amer 92 mL/min >60 [facility] Work Phone: Comment on above: Non- GFR Calc Platelets bldon 06-22-2021 Platelets (Bld) [#/Vol] 201 10*3/uL 150-450 [facility] Work Phone: Protein Test strip Ql (U)on 06-22-2021 Protein Ql (U) 30 mg/dl Negative [facility] Work Phone: Serum or plasma calcium sheryl urement (mass/volume)on 06-22-2021 Calcium [Mass/Vol] 8.7 mg/dL 8.5-10.1 [place] Work Phone: Serum or plasma creatinine m easurement (mass/volume)on 06-22-2021 Creatinine [Mass/Vol] 0.75 mg/dL 0.55-1.02 [facility] Work Phone: Comment on above: The validity of the calculated GFR & GFRAA in patients over 70 years has not been determined. Clinical correlation is essential. Serum or plasma urea nitroge n measurement (mass/volume)on 06-22-2021 Urea nitrogen [Mass/Vol] 17 mg/dL 7-18 [facility] Work Phone: Squamous epithelial cells de tection in urine sediment by light microscopyon 06-22-2021 Epithelial cells.squamous LM Ql (Urine sed) 0-5 SEEN /hpf 5-10 [facility] Work Phone: Thin prep Papanicolaou smear with manual screeningon 06-22-2021 Thin prep Papanicolaou smear with manual screening 7 5-15 [facility] Work Phone: Urine blood detectionon 05-31 RBC Ql (U) 150 /ul Negative [facility] Work Phone: RBC Ql (U) 0 SEEN /hpf 0-5 [facility] Work Phone: Urine clarityon 06-22-2021 Clarity (U) Cloudy Clear [facility] Work Phone: Urine color determinationon 06-22-2021 Color (U) Yellow Yellow [facility] Work Phone: Urine glucose detectionon Glucose Ql (U) Normal mg/dl Normal [facility] Work Phone: Urine leukocyte esterase det ection by dipstickon 06-22-2021 Leukocyte esterase Test strip Ql (U) 500 /ul Negative [facility] Work Phone: Urine pHon 06-22-2021 pH (U) 6.0 [pH] 5.0 - 8.0 [facility] Work Phone: Urine sediment bacteria coun t by microscopy (number/high power field)on 06-22-2021 Bacteria LM.HPF (Urine sed) [#/Area] 3 /[HPF] None Seen [facility] Work Phone: Urine specific gravity measu rementon 06-22-2021 Specific gravity (U) [Rel density] 1.015 1.002-1.030 [facility] Work Phone: Urobilinogen Auto test strip Ql (U)on 06-22-2021 Urobilinogen Ql (U) 8 mg/dl Normal [facility] Work Phone: XR Finger - right AP and Lat eral and obliqueon 06-12-2020 IMPRESSION: Negative Management Scientist: ARMEN Transcribe Date/Time: Jun 12 2020 10:08A Dictated by : FRANKIE COBB MD This examination was interpreted and the report reviewed and electronically signed by: FRANKIE COBB MD on Jun 12 2020 10:09AM [facility] DIVISION OF RADIOLOGY * * *Final [...] are unremarkable. DIVISION OF RADIOLOGY Provider, [facility] - 06/12/2020 * * *Final Report* [...] soft tissues are unremarkable. IMPRESSION IMPRESSION: Negative Management Scientist: PSCB Transcribe Date/Time: Jun 12 2020 10:08A Dictated by : FRANKIE COBB MD This examination was interpreted and the report reviewed and electronically signed by: FRANKIE COBB MD on Jun 12 2020 10:09AM EST [facility] XR Finger - right AP and Lat eral and obliqueOrdered By: Ccf Provider on 06-12-2020 [facility] XR Finger - right AP and Lat eral and obliqueon 06-11-2020 Radiology Study observation (narrative) [facility] ANES POSTPROC EVALon 020 ANES POSTPROC EVAL HNO ID: [id number] Author: Yovani Danielle Service: ? Author Type: Anesthesiologist Type: Anesthesia Postprocedure Evaluation Filed: 03/11/2020 2:47 PM Note Text: POST ANESTHESIA EVALUATION NOTE : 1985 Procedure Summary Date: 03/11/20 Room / Location: [place] OR03 / [place] OR Anesthesia Start: 1010 [...] March 11, 2020 TIME: 2:46 PM CSN: [id number] [facility] ANES PRE-OPon 03-11-2020 ANES PRE-OP HNO ID: [id number] Author: Yovani Danielle Service: ? Author Type: Anesthesiologist Type: Anesthesia Preprocedure Evaluation Filed: 03/11/2020 9:22 AM Note Text: ANESTHESIOLOGY DAY OF SURGERY NOTE : 1985 Procedure(s) (LRB): DECOMPRESSION NERVE MEDIAN CARPAL TUNNEL (Left) Surgeon(s): Aisf Coronado Estimated body mass index is 33.28 [...] NEW RING - CPAP Modem access to [facility], send detailed download. mask (pt pref), nasal pillows may be too big, try nasal, filters, heated humidity AND tubing. Lif[employer] supplies. FLOR G47.33npi [id number] - gabapentin (NEURONTIN) 300 mg capsule Take [...] RELIEF) 50 mcg/actuation nasal spray Use 1 Milton in each nostril once daily. - cetirizine [...] March 11, 2020 TIME: 9:22 AM CSN: [id number] [facility] OPERATIVE NOon 03-11-2020 OPERATIVE NO HNO ID: [id number] Author: Asif Coronado Service: Orthopaedic Surgery Author Type: Physician Type: Operative Report Filed: 03/15/2020 7:46 AM Note Text: [place] [address] [place] OPERATIVE REPORT NAME:Citlali Beckwith [id number] DATE: March 15, 2020 AGE: [age] year [...] resistance. Subsequently, I selected a mini meniscotome [place] blade and slid this in the protective guide, completely dividing the transverse carpal ligament. Aguila rakes were used to view up the wound to visualize for complete release and a Engelhard elevator was used to palpate for complete [...] DRAINS: None SPECIMENS: None. Asif Coronado M.D. [facility] 02-29-2020 [facility] Patient:Citlali Beckwith MRN: Height:5' 5(1.651 m) [...] for the following basenames: K,HCT Progress Notes (CUTTING TABLE OPERATOR WSTR MOB): Carlie Campbell MD 03/01/2020 9:33 [...] Carlie Campbell MD Previous Version Progress Notes ([facility] WSTR): Radha Dickens RN 03/01/2020 8:00 AM Signed Called pt. and appt. changed. [facility] ANES POSTPROC EVALon 020 ANES POSTPROC EVAL HNO ID: [id number] Author: Get Ramirez Service: ? Author Type: Physician Type: Anesthesia Postprocedure Evaluation Filed: 02/11/2020 10:30 AM Note Text: POST ANESTHESIA EVALUATION NOTE : 1985 Procedure Summary Date: 02/11/20 Room / Location: [place] OR03 / [place] OR Anesthesia Start: 738 Anesthesia Stop: 902 [...] care. SIGNATURE: Get Ramirez MD PATIENT NAME: Citllai Beckwith DATE: February 11, 2020 TIME: 10:30 AM CSN: [id number] [facility] ANES PRE-OPon 02-11-2020 ANES PRE-OP HNO ID: [id number] Author: Get Ramirez Service: ? Author Type: [...] RELIEF) 50 mcg/actuation nasal spray Use 1 Milton in each nostril once daily. - cetirizine [...] February 11, 2020 TIME: 7:06 AM CSN: [id number] [facility] NURSING PROGon 02-11-2020 NURSING PROG HNO ID: [id number] Author: Radha BurrRn) CARINA Mcarthur Service: Nursing Author Type: Registered Nurse Type: Nursing Progress Note Filed: 02/11/2020 9:48 AM Note Text: 09 report from Rama LIM in PACU. Pt shivering, Demerol given per Rama LIM, will continue to monitor. Pt. c/o 9/10 abd pain. R wrist drsg DANDI. Abd lap sites x3 OIL RIG ROUGHNECK no drng with skin glue. Joseline pad in place mesh panties applies. PIV DANDI. VSS no s/sx of distress. 0927 pt continues to shiver, Demerol given. 0945 pt c/o pain 3/10 denies pain meds @ this time. Takes PO ice chips denies nausea. [facility] NURSING PROG HNO ID: [id number] Author: Leslie BurrRn) CARINA Madsen Service: ? Author Type: Registered Nurse Type: Nursing Progress Note Filed: 02/11/2020 8:34 AM Note Text: DR CAMPBELL END 0822. DR CORONAOD START 0832 [facility] OPERATIVE NOon 02-11-2020 OPERATIVE NO HNO ID: [id number] Author: Asif Coronado Service: Orthopaedic Surgery Author Type: Physician Type: Operative Report Filed: 02/11/2020 9:09 AM Note Text: [place] [address] [place] OPERATIVE REPORT NAME:Citlali Beckwith [id number] DATE: February 11, 2020 AGE: [age] year old SURGEON 1: Asfi Coronado M.D. OPERATION: Right carpal tunnel release, [...] and had her set up for her MEDIA CONSULTANT OUTSIDE SALES procedure. At the completion of her tubal [...] resistance. Subsequently, I selected a mini meniscotome [place] blade and slid this in the protective guide, completely dividing the transverse carpal ligament. Aguila rakes were used to view up the wound to visualize for complete release and a Engelhard elevator was used to palpate for complete [...] DRAINS: None SPECIMENS: None. Asif Coronado M.D. [facility] OPERATIVE NO HNO ID: [id number] Author: Carlie Campbell Service: Gynecology Author Type: Physician Type: Operative Report Filed: 02/11/2020 8:34 AM Note Text: MEDIA CONSULTANT OUTSIDE SALES OPERATIVE/PROCEDURE REPORT LOG ID: [id number] Surgery/Procedure Date: 02/11/2020 Incision/Procedure Start Time: 7:58 AM Incision Close/Procedure End Time: 0822 Surgeon(s)/Proceduralist(s ) and Parliamentary Archivist(s): Surgeon(s) and Role: Panel 1: * Carlie [...] 2020 TIME: 8:29 AM PAGER/CONTACT #: Normal [facility] SURGICAL PATHOLOGYon 020 SURGICAL PATHOLOGY Specimen originated from [facility] Specimen #: [id number] Submitting Physician: Carlie Campbell M.D. FINAL DIAGNOSIS [...] cysts. Sectioning reveals an unremarkable pinpoint lumen. Felt Machine Mechanic sections are submitted as follows: A1 fallopian tube #1 fimbriated end bisected and mid cross section, A2 fallopian tube #2 fimbriated end bisected and mid cross section. OLS/td 02/11/2020 Gross examination performed at [facility], [address] [place] [id number] Date of Report: 02/15/2020 Date of Procedure: 02/11/2020 Date of Receipt: 02/11/2020 Submitted by: Carlie Campbell M.D. Location: [facility] Diagnostic interpretation performed at [facility], [facility] [place] [address]. IA Number: [id number] [facility] JESICAAndie 02-04-2020 CNPN Telephone (PREANME) -- LUIS FERNANDOCITLALI Reid ([id number]) 1985 F Date Time Provider Department 02/04/20 [...] right hand carpal tunnel release. Lian at [place] [facility] has been notified. Allergies As of Date: [...] RING VAGINALLY DI* CPAP Modem access to niangua cli* GABAPENTIN 300 MG CAPSULE Take 3 capsules by mouth madina* TRAZODONE 50 MG TABLET Take 1 tablet by mouth daily * CPAP Initiate Auto PAP @ 5-20 cm o* NICOTINE 21 MG/24 HR DAILY TR* Apply 1 Patch as directed lesli* FLUTICASONE PROPIONATE 50 MCG* Use 1 Milton in each nostril o* CETIRIZINE 10 MG [...] 09/13/2015 More... Routine general medical examination at [facility]*06/30/2009 09/13/2015 Class: Chronic More... Routine gynecological examination [...] Encounter Status:Closed by WENDIE RIVERA on 02/04/20 [facility] HOSPon 12-11-2019 HOSP Patient:Citlali Beckwith MRN: Height:5' [...] % 01/18/2020 46.0 36.0 Progress Notes (PRE [facility]): Flavio Rivera RN, RN 02/04/2020 10:37 AM Addendum Site clarification: Per patient she is having surgery to right hand by Dr. Coronado on 02/11/2020. Previous Version Danyelle Fleming Ma 02/05/2020 9:02 AM Signed I called and spoke with patient. She would like to have right hand carpal tunnel release. Lian at [place] scheduling has been notified. Progress Notes (Z CUTTING TABLE OPERATOR [facility]): Sarah Martinez RN 02/03/2020 8:51 AM [...] need to notify patient. Sarah Martinez RN [facility] .Auto Diffon 04-01-2018 Ammonia (P) [Mass/Vol] 0.40 10 3/mcL Normal 0.15-1.00 [facility] ([place]) Comment on above: Performed By: #### B MP, GFR, LAC #### [place] [address] #### CBC, ADIFF, ANEU #### [address] [address] Basophils (Bld) [#/Vol] 0.00 10 3/mcL Normal 0.00-0.19 [facility] ([place]) Comment on above: Performed By: #### B MP, GFR, LAC #### [place] [address] #### CBC, ADIFF, ANEU #### [address] [address] Basophils/100 WBC (Bld) 0.6 % Normal 0.0-2.5 [facility] ([place] Comment on above: Performed By: #### B MP, GFR, LAC #### [place] [address] #### CBC, ADIFF, ANEU #### [address] [address] Eosinophils (Bld) [#/Vol] 0.20 10 3/mcL Normal 0.00-0.40 [facility] ([place] Comment on above: Performed By: #### B MP, GFR, LAC #### [place] [address] #### CBC, ADIFF, ANEU #### [address] [address] Eosinophils/100 WBC (Bld) 2.5 % Normal 0.0-7.0 [facility] ([place] Comment on above: Performed By: #### B MP, GFR, LAC #### [place] [address] #### CBC, ADIFF, ANEU #### [address] [address] Lymphocytes (Bld) [#/Vol] 1.10 10 3/mcL Normal 0.77-3.85 [facility] ([place]) Comment on above: Performed By: #### B MP, GFR, LAC #### [address] [address] #### CBC, ADIFF, ANEU #### [address] [address] Lymphocytes/100 WBC (Bld) 17.7 % Normal 10.0-50.0 [facility] ([place]) Comment on above: Performed By: #### B MP, GFR, LAC #### [place] [address] #### CBC, ADIFF, ANEU #### [address] [address] Monocytes/100 WBC (Bld) 7.2 % Normal 1.7-13.0 [facility] ([place]) Comment on above: Performed By: #### B MP, GFR, LAC #### [place] [address] #### CBC, ADIFF, ANEU #### [address] [address] Neutrophils/100 WBC (Bld) 72.0 % Normal 37.0-80.0 [facility] ([place]) Comment on above: Performed By: #### B MP, GFR, LAC #### [place] [address] #### CBC, ADIFF, ANEU #### [address] [address] .GFRon 04-01-2018 GFR Non- 95 ml/min/1.73sqm Normal [facility] ([place]) Comment on above: Result Comment: GFR [...] By: #### B MP, GFR, LAC #### [place] [address] #### CBC, ADIFF, ANEU #### [address] [address] GFR 115 ml/min/1.73sqm Normal [facility] ([place] Comment on above: Result Comment: GFR Population [...] By: #### B MP, GFR, LAC #### [place] [address] #### CBC, ADIFF, ANEU #### [address] [address] .NEUABSon 04-01-2018 Neutrophils (Bld) [#/Vol] 4.50 10 3/mcL Normal 2.85-6.16 [facility] ([place] Comment on above: Performed By: #### B MP, GFR, LAC #### [place] [address] #### CBC, ADIFF, ANEU #### [address] [address] BMPon 04-01-2018 Calcium [Mass/Vol] 8.1 mg/dL Low 8.4-10.2 [facility] ([place]) Comment on above: Performed By: #### B MP, GFR, LAC #### [address] [address] #### CBC, ADIFF, ANEU #### [address] [address] Chloride [Moles/Vol] 106 mmol/L Normal 98-107 [facility] ([place]) Comment on above: Performed By: #### B MP, GFR, LAC #### [address] [address] #### CBC, ADIFF, ANEU #### [address] [address] CO2 [Moles/Vol] 28 mmol/L Normal 22-29 [facility] ([place] Comment on above: Performed By: #### B MP, GFR, LAC #### [address] [address] #### CBC, ADIFF, ANEU #### [address] [address] Creatinine [Mass/Vol] 0.71 mg/dL Normal 0.55-1.02 [facility] ([place]) Comment on above: Performed By: #### B MP, GFR, LAC #### [place] [address] #### CBC, ADIFF, ANEU #### [address] [address] Electrolyte Balance 9.0 mEq/L Normal [facility] ([place] Comment on above: Performed By: #### B MP, GFR, LAC #### [address] [address] #### CBC, ADIFF, ANEU #### [address] [address] Glucose [Mass/Vol] 82 mg/dL Normal 70-105 [facility] ([place]) Comment on above: Performed By: #### B MP, GFR, LAC #### [address] [address] #### CBC, ADIFF, ANEU #### [address] [address] Potassium [Moles/Vol] 4.2 mmol/L Normal 3.5-5.1 [facility] ([place]) Comment on above: Performed By: #### B MP, GFR, LAC #### [address] [address] #### CBC, ADIFF, ANEU #### [address] [address] Sodium [Moles/Vol] 143 mmol/L Normal 136-145 [facility] ([place]) Comment on above: Performed By: #### B MP, GFR, LAC #### [address] [address] #### CBC, ADIFF, ANEU #### [address] [address] Urea nitrogen [Mass/Vol] 20 mg/dL High 7-18 [facility] ([place] Comment on above: Performed By: #### B MP, GFR, LAC #### [place] [address] #### CBC, ADIFF, ANEU #### [address] [address] Urea nitrogen/Creatinine [Mass ratio] 28 ratio High 7 [facility] ([place] Comment on above: Performed By: #### B MP, GFR, LAC #### [place] [address] #### CBC, ADIFF, ANEU #### [address] [address] CBCon 04-01-2018 Erythrocyte distribution width (RBC) [Ratio] 13.3 % Normal 11.5-14.5 [facility] ([place] Comment on above: Performed By: #### B MP, GFR, LAC #### [address] [address] #### CBC, ADIFF, ANEU #### [address] [address] Hematocrit (Bld) [Volume fraction] 37.5 % Normal 37.0-47.0 [facility] ([place] Comment on above: Performed By: #### B MP, GFR, LAC #### [place] [address] #### CBC, ADIFF, ANEU #### [address] [address] Hemoglobin (Bld) [Mass/Vol] 12.8 G/dL Normal 12.0-16.0 [facility] ([place] Comment on above: Performed By: #### B MP, GFR, LAC #### [place] [address] #### CBC, ADIFF, ANEU #### [address] [address] MCH (RBC) [Entitic mass] 31.0 pg Normal 27.0-31.2 [facility] ([place] Comment on above: Performed By: #### B MP, GFR, LAC #### [place] [address] #### CBC, ADIFF, ANEU #### [address] [address] MCHC (RBC) [Mass/Vol] 34.2 G/dL Normal 33.0-37.0 [facility] ([place] Comment on above: Performed By: #### B MP, GFR, LAC #### [place] [address] #### CBC, ADIFF, ANEU #### [address] [address] MCV (RBC) [Entitic vol] 90.7 fL Normal 80.0-94.0 [facility] ([place] Comment on above: Performed By: #### B MP, GFR, LAC #### [place] [address] #### CBC, ADIFF, ANEU #### [address] [address] Platelet mean volume (Bld) [Entitic vol] 8.4 fL Normal 7.4-10.4 [facility] ([place] Comment on above: Performed By: #### B MP, GFR, LAC #### [place] [address] #### CBC, ADIFF, ANEU #### [address] [address] Platelets (Bld) [#/Vol] 182 10 3/mcL Normal 130-400 [facility] ([place] Comment on above: Performed By: #### B MP, GFR, LAC #### [place] [address] #### CBC, ADIFF, ANEU #### [address] [address] RBC (Bld) [#/Vol] 4.14 10 6/mcL Low 4.20-5.40 [facility] ([place] Comment on above: Performed By: #### B MP, GFR, LAC #### [place] [address] #### CBC, ADIFF, ANEU #### [address] [address] WBC (Bld) [#/Vol] 6.20 10 3/mcL Normal 4.60-10.80 [facility] ([place] Comment on above: Performed By: #### B MP, GFR, LAC #### [place] [address] #### CBC, ADIFF, ANEU #### [address] [address] [address] ABD/PELVIS W/ IV CONTRAST ONLYon 04-01-2018 [...] Sign Date: 04/01/2018 12:20:12 PM Normal [facility] ([place]) LACon 04-01-2018 Lactic Acid Lvl 0.6 mmol/L Normal 0.4-2.0 [facility] ([place] Comment on above: Performed By: #### B MP, GFR, LAC #### [place] [address] #### CBC, ADIFF, ANEU #### [address] [address] PREGUon 04-01-2018 HCG ( test) Ql (U) Negative Normal [facility] ([place] Comment on above: Performed By: #### P REGU #### [address] [address] test (u) int HCG not detected. [facility] ([place] Comment on above: Performed By: #### P REGU #### [address] [address] Culture, urine Bacteria identified Cx Nom (U) Klebsiella pneumoniae sp pneum [facility] Work Phone: Vital Signs Date Time Vital Sign Value Performing Clinician Facility 09-14-2024 18:49-0400 Body mass index (BMI) [Ratio] 34.28 kg/m2 Paul Kendrick MD Work Phone: [facility] 09-14-2024 18:49-0400 Body weight 93.44 kg Paul Kendrick MD Work Phone: [facility] 09-14-2024 18:49-0400 Diastolic blood pressure 64 mm[Hg] Paul Kendrick MD Work Phone: [facility] 09-14-2024 18:49-0400 Heart rate 95 /min Paul Kendrick MD Work Phone: [facility] 09-14-2024 18:49-0400 SaO2% (BldA) [Mass fraction] 98 % Paul Kendrick MD Work Phone: [facility] 09-14-2024 18:49-0400 Systolic blood pressure 122 mm[Hg] Paul Kendrick MD Work Phone: [facility] 09-01-2024 11:48-0400 Body mass index (BMI) [Ratio] 34.45 kg/m2 Marry Suppan GROUND SUPPORT EQUIPMENT MECHANIC.AERIAL LINEMAN Work Phone: [facility] 09-01-2024 11:48-0400 Body weight 93.89 kg Marry Suppan GROUND SUPPORT EQUIPMENT MECHANIC.AERIAL LINEMAN Work Phone: [facility] 09-01-2024 11:48-0400 Diastolic blood pressure 78 mm[Hg] Marry Suppan GROUND SUPPORT EQUIPMENT MECHANIC.AERIAL LINEMAN Work Phone: [facility] 09-01-2024 11:48-0400 Heart rate 84 /min Marry Suppan GROUND SUPPORT EQUIPMENT MECHANIC.AERIAL LINEMAN Work Phone: [facility] 09-01-2024 11:48-0400 SaO2% (BldA) [Mass fraction] 98 % Marry Suppan GROUND SUPPORT EQUIPMENT MECHANIC.AERIAL LINEMAN Work Phone: [facility] 09-01-2024 11:48-0400 Systolic blood pressure 118 mm[Hg] Marry Suppan GROUND SUPPORT EQUIPMENT MECHANIC.AERIAL LINEMAN Work Phone: [facility] 05-05-2024 08:22-0500 Body height 165.[address] Paul Kendrick MD Work Phone: [facility] 05-05-2024 08:22-0500 Body mass index (BMI) [Ratio] 34 kg/m2 Dr. Paul Kendrick MD Work Phone: 2(684)840-715291 [place] [address] 05-05-2024 08:22-0500 Body weight 92.[address] Paul Kendrick MD Work Phone: 8(445)829-072991 [place] [address] 03-03-2024 13:09-0500 Body temperature 98.1 [degF] Dr. Paul Kendrick MD Work Phone: 3(338)623-172091 [place] [address] 03-03-2024 13:09-0500 Diastolic blood pressure 71 mm[Hg] Dr. Paul Kendrick MD Work Phone: 6(994)373-940691 [place] [address] 03-03-2024 13:09-0500 Heart rate 81 /min Dr. Paul Kendrick MD Work Phone: 3(136)900-450391 [place] [address] 03-03-2024 13:09-0500 Respiratory rate 19 /min Dr. Paul Kendrick MD Work Phone: 3(384)717-093991 [place] [address] 03-03-2024 13:09-0500 SaO2% (BldA) [Mass fraction] 99 % Dr. Paul Kendrick MD Work Phone: 6(708)946-573391 [place] [address] 03-03-2024 13:09-0500 Systolic blood pressure 133 mm[Hg] Dr. Paul Kendrick MD Work Phone: 0(319)891-488291 [place] [address] 03-03-2024 09:13-0500 Body mass index (BMI) [Ratio] 33.8 kg/m2 Dr. Paul Kendrick MD Work Phone: 0(783)771-807991 [place] [address] 03-03-2024 09:13-0500 Body weight 92.[address] Paul Kendrick MD Work Phone: 5(283)486-020491 [place] [address] 01-13-2024 16:01-0400 Body mass index (BMI) [Ratio] 33.45 kg/m2 Marry Paredes GROUND SUPPORT EQUIPMENT MECHANIC.AERIAL LINEMAN Work Phone: 2(066)470-936139 [place] [address] 01-13-2024 16:01-0400 Body weight 91.17 kg Marry Paredes APRN.AERIAL LINEMAN Work Phone: 1(755)858-875539 [place] [address] 01-13-2024 16:01-0400 Diastolic blood pressure 76 mm[Hg] Marry Suppan GROUND SUPPORT EQUIPMENT MECHANIC.AERIAL LINEMAN Work Phone: [facility] 01-13-2024 16:01-0400 Heart rate 71 /min Marry Suppan GROUND SUPPORT EQUIPMENT MECHANIC.AERIAL LINEMAN Work Phone: [facility] 01-13-2024 16:01-0400 Respiratory rate 16 /min Marry Suppan GROUND SUPPORT EQUIPMENT MECHANIC.AERIAL LINEMAN Work Phone: [facility] 01-13-2024 16:01-0400 SaO2% (BldA) [Mass fraction] 98 % Marry Suppan GROUND SUPPORT EQUIPMENT MECHANIC.AERIAL LINEMAN Work Phone: [facility] 01-13-2024 16:01-0400 Systolic blood pressure 120 mm[Hg] Marry Suppan GROUND SUPPORT EQUIPMENT MECHANIC.AERIAL LINEMAN Work Phone: [facility] 05-17-2023 13:20-0500 Body weight 89.09 kg Evelin Haury GROUND SUPPORT EQUIPMENT MECHANIC.AERIAL LINEMAN Work Phone: [facility] 05-17-2023 13:20-0500 Diastolic blood pressure 76 mm[Hg] Evelin Haury GROUND SUPPORT EQUIPMENT MECHANIC.AERIAL LINEMAN Work Phone: [facility] 05-17-2023 13:20-0500 Systolic blood pressure 110 mm[Hg] Evelin Haury GROUND SUPPORT EQUIPMENT MECHANIC.AERIAL LINEMAN Work Phone: [facility] 05-15-2023 09:09-0500 Body temperature 98.49 [degF] Krislyn Aberegg PA Work Phone: [facility] 05-15-2023 09:09-0500 Body weight 88.72 kg Krislyn Aberegg PA Work Phone: [facility] 05-15-2023 09:09-0500 Diastolic blood pressure 78 mm[Hg] Krislyn Aberegg PA Work Phone: [facility] 05-15-2023 09:09-0500 Heart rate 97 /min Krislyn Aberegg PA Work Phone: [facility] 05-15-2023 09:09-0500 Respiratory rate 21 /min Krislyn Aberegg PA Work Phone: [facility] 05-15-2023 09:09-0500 SaO2% (BldA) [Mass fraction] 98 % Krislyn Aberegg PA Work Phone: [facility] 05-15-2023 09:09-0500 Systolic blood pressure 100 mm[Hg] Krislyn Aberegg PA Work Phone: [facility] 10-03-2022 10:35-0400 Body height 165.1 cm Paul Kendrick MD Work Phone: [facility] 10-03-2022 10:35-0400 Body weight 83.01 kg Paul Kendrick MD Work Phone: [facility] 10-03-2022 10:35-0400 Diastolic blood pressure 68 mm[Hg] Paul Kendrick MD Work Phone: [facility] 10-03-2022 10:35-0400 Heart rate 81 /min Paul Kendrick MD Work Phone: [facility] 10-03-2022 10:35-0400 SaO2% (BldA) [Mass fraction] 98 % Paul Kendirck MD Work Phone: [facility] 10-03-2022 10:35-0400 Systolic blood pressure 108 mm[Hg] Paul Kendrick MD Work Phone: [facility] 06-05-2022 14:44-0500 Body height 165.1 cm Tomasa Alarcon APRN.CNM Work Phone: [facility] 06-05-2022 14:44-0500 Body weight 81.19 kg Tomasa Alarcon GROUND SUPPORT EQUIPMENT MECHANIC.CNM Work Phone: [facility] 06-05-2022 14:44-0500 Diastolic blood pressure 70 mm[Hg] Tomasa Alarcon GROUND SUPPORT EQUIPMENT MECHANIC.CNM Work Phone: [facility] 06-05-2022 14:44-0500 Systolic blood pressure 110 mm[Hg] Tomasa Alarcon GROUND SUPPORT EQUIPMENT MECHANIC.CNM Work Phone: [facility] 04-04-2022 14:06-0500 Body height 165.1 cm Paul Kendrick MD Work Phone: [facility] 04-04-2022 14:06-0500 Body weight 82.1 kg Paul Kendrick MD Work Phone: [facility] 04-04-2022 14:06-0500 Diastolic blood pressure 68 mm[Hg] Paul Kendrick MD Work Phone: [facility] 04-04-2022 14:06-0500 Heart rate 89 /min Paul Kendrick MD Work Phone: [facility] 04-04-2022 14:06-0500 SaO2% (BldA) [Mass fraction] 98 % Paul Kendrick MD Work Phone: [facility] 04-04-2022 14:06-0500 Systolic blood pressure 112 mm[Hg] Paul Kendrick MD Work Phone: [facility] 02-09-2022 10:48-0500 Body weight 81.28 kg Asia Miller MD Work Phone: [facility] 02-09-2022 10:48-0500 Diastolic blood pressure 64 mm[Hg] Asia Miller MD Work Phone: [facility] 02-09-2022 10:48-0500 Systolic blood pressure 100 mm[Hg] Asia Miller MD Work Phone: [facility] 10-03-2021 13:43-0400 Body weight 83.01 kg NA Selby PA-C Work Phone: [facility] 10-03-2021 13:43-0400 Diastolic blood pressure 72 mm[Hg] NA Selby PA-C Work Phone: [facility] 10-03-2021 13:43-0400 Heart rate 60 /min NA Selby PA-C Work Phone: [facility] 10-03-2021 13:43-0400 Respiratory rate 16 /min NA Selby PA-C Work Phone: [facility] 10-03-2021 13:43-0400 SaO2% (BldA) [Mass fraction] 98 % NA Selby PA-C Work Phone: [facility] 10-03-2021 13:43-0400 Systolic blood pressure 120 mm[Hg] NA Selby PA-C Work Phone: [facility] 09-14-2021 16:01-0400 Diastolic blood pressure 70 mm[Hg] Dr. Paul Kendrick Work Phone: [facility] Work Phone: 09-14-2021 16:01-0400 Heart rate 60 /min Dr. Paul Kendrick Work Phone: [facility] Work Phone: 09-14-2021 16:01-0400 Respiratory rate 16 /min Dr. Paul Kendrick Work Phone: [facility] Work Phone: 09-14-2021 16:01-0400 SaO2% (BldA) [Mass fraction] 98 % Dr. Paul Kendrick Work Phone: [facility] Work Phone: 09-14-2021 16:01-0400 Systolic blood pressure 110 mm[Hg] Dr. Paul Kendrick Work Phone: [facility] Work Phone: 09-14-2021 15:47-0400 Body temperature 97.5 [degF] Dr. Paul Kendrick Work Phone: [facility] Work Phone: 09-14-2021 13:17-0400 Body height 165.[address] Paul Kendrick Work Phone: [facility] Work Phone: 09-14-2021 13:17-0400 Body mass index (BMI) [Ratio] 30 kg/m2 Dr. Paul Kendrick Work Phone: [facility] Work Phone: 09-14-2021 13:17-0400 Body weight [address] Paul Kendrick Work Phone: [facility] Work Phone: 07-31-2021 13:35-0400 Body weight 86.18 kg Tomasa Alarcon GROUND SUPPORT EQUIPMENT MECHANIC.CNM Work Phone: [facility] 07-31-2021 13:35-0400 Diastolic blood pressure 70 mm[Hg] Tomasa Plotts GROUND SUPPORT EQUIPMENT MECHANIC.CNM Work Phone: [facility] 07-31-2021 13:35-0400 Systolic blood pressure 108 mm[Hg] Tomasa Plotts GROUND SUPPORT EQUIPMENT MECHANIC.CNM Work Phone: [facility] 07-12-2021 15:11-0400 Body weight 84.6 kg Asia Miller MD Work Phone: [facility] 07-12-2021 15:11-0400 Diastolic blood pressure 80 mm[Hg] Asia Miller MD Work Phone: [facility] 07-12-2021 15:11-0400 Systolic blood pressure 120 mm[Hg] Asia Miller MD Work Phone: [facility] 07-12-2021 14:43-0400 Body temperature 98.49 [degF] Milan Hernandez MD Work Phone: [facility] 07-12-2021 14:43-0400 Body weight 84.82 kg Milan Hernandez MD Work Phone: [facility] 07-12-2021 14:43-0400 Diastolic blood pressure 75 mm[Hg] Milan Hernandez MD Work Phone: [facility] 07-12-2021 14:43-0400 Heart rate 82 /min Milan Hernandez MD Work Phone: [facility] 07-12-2021 14:43-0400 Systolic blood pressure 157 mm[Hg] Milan Hernandez MD Work Phone: [facility] 06-23-2021 14:35-0400 Body temperature 98.1 [degF] [facility] Work Phone: 06-23-2021 14:35-0400 Diastolic blood pressure 54 mm[Hg] [facility] Work Phone: 06-23-2021 14:35-0400 Heart rate 83 /min [facility] Work Phone: 06-23-2021 14:35-0400 Respiratory rate 16 /min [facility] Work Phone: 06-23-2021 14:35-0400 SaO2% (BldA) [Mass fraction] 99 % [facility] Work Phone: 06-23-2021 14:35-0400 Systolic blood pressure 101 mm[Hg] [facility] Work Phone: 06-23-2021 11:18-0400 Body height 165.1 cm [facility] Work Phone: 06-23-2021 11:18-0400 Body mass index (BMI) [Ratio] 31.2 kg/m2 [facility] Work Phone: 06-23-2021 11:18-0400 Body weight 85.27 kg [facility] Work Phone: 06-22-2021 12:20-0400 Body temperature 96.8 [degF] [facility] Work Phone: 06-22-2021 12:20-0400 Diastolic blood pressure 79 mm[Hg] [facility] Work Phone: 06-22-2021 12:20-0400 Heart rate 72 /min [facility] Work Phone: 06-22-2021 12:20-0400 Respiratory rate 16 /min [facility] Work Phone: 06-22-2021 12:20-0400 SaO2% (BldA) [Mass fraction] 98 % [facility] Work Phone: 06-22-2021 12:20-0400 Systolic blood pressure 128 mm[Hg] [facility] [facility] Work Phone: 06-22-2021 09:15-0400 Body height 165.1 cm [facility] Work Phone: 06-22-2021 09:15-0400 Body mass index (BMI) [Ratio] 32.4 kg/m2 [facility] Work Phone: 06-22-2021 09:15-0400 Body weight 88.45 kg [facility] Work Phone: Encounters Encounter Date Encounter Type Care Provider Facility Start: 09-30-2024 ambulatory [facility] Facility:[facility] Start: 09-29-2024 End: 09-29-2024 Telephone encounter Paul Kendrick MD Work Phone: [facility] Start: 09-29-2024 Encounter for other preprocedural examination [facility] Start: 09-28-2024 End: 09-28-2024 ambulatory Paul Kendrick MD Work Phone: [facility] Comment on above: Iron supplements Start: 09-25-2024 End: 09-28-2024 Telephone encounter Paul Kendrick MD Work Phone: [facility] Comment on above: Results Start: 09-23-2024 End: 09-23-[address] Paul Kendrick MD Work Phone: -Laboratory Start: 09-23-2024 End: 09-23-[address] Paul Kendrick MD -Laboratory Work Phone: Start: 09-22-2024 End: 09-23-2024 Get Medical Advice Paul Kendrick MD Work Phone: [facility] Comment on above: Lab orders Patient Question (Re : EKG report) Start: 09-14-2024 End: 09-14-2024 Patient encounter procedure Paul Kendrick MD Work Phone: [facility] Comment on above: Lumbar radiculopathy (Primary Dx); RLS (restless legs syndrome); Seizures (HCC); Carpal tunnel syndrome, unspecified laterality; FLOR (obstructive sleep apnea); Other vitamin B12 deficiency anemia; GERD without esophagitis; Hyperbilirubinemia; Other specified nutritional anemias; Vitamin D deficiency; Folic acid deficiency (non anemic); History of Angelika-en-Y gastric bypass; Frequent UTI; Screening, heart disease, ischemic Start: 09-14-2024 End: 09-14-2024 ambulatory PAUL KENDRICK Facility:[facility] Start: 09-08-2024 End: 09-08-[address] Barney Rajan MD -[facility] Work Phone: Start: 09-08-2024 End: 09-08-[address] Paul Kendrick MD Work Phone: [facility] Work Phone: Start: 09-01-2024 End: 09-01-2024 ambulatory MARRY Torie PAREDES Facility:[facility] Start: 09-01-2024 End: 09-01-2024 Office outpatient visit 15 minutes Marry Torie Paredes [employer]IPMENT MECH[employer]IC.[employer] Work Phone: [facility] Comment on above: Recurrent UTI (urina ry tract infection) (Primary Dx); RLS (restless legs syndrome) Start: 08-27-2024 End: 08-27-2024 ambulatory Paul Kendrick MD Work Phone: [facility] Comment on above: Trazodone Start: 05-05-2024 End: 05-05-[address] Barney Rajan MD -[facility] Work Phone: Start: 05-05-2024 End: 05-05-2024 ambulatory Barney Rajan Facility:[facility] Start: 04-16-2024 End: 04-16-[address] Paul Kendrick MD Work Phone: [facility] Work Phone: Start: 04-16-2024 End: 04-16-[address] Shayne Blas MD -Physical Therapy Work Phone: Start: 04-13-2024 End: 04-13-[address] Shayne Blas MD -MRI - [facility] Work Phone: Start: 04-13-2024 End: 04-13-2024 ambulatory Shayne Blas Facility:[facility] Start: 03-04-2024 End: 03-04-2024 ambulatory No Pcp GROUND [employer] EQUIPMENT MECHANIC [facility] Start: 03-04-2024 End: 03-04-2024 Patient encounter procedure No Pcp [employer] EQUIPMENT MECHANIC [facility] Start: 03-04-2024 End: 03-04-2024 Telephone encounter Paul Kendrick MD Work Phone: [facility] Comment on above: Consult Start: 03-03-2024 End: 03-03-2024 ambulatory Paul Kendrick MD Work Phone: [facility] Comment on above: Low Back Pain Start: 03-03-2024 End: 03-03-2024 Emergency department patient visit Dr. Virginia Peter DO -Emergency Department Work Phone: Start: 03-02-2024 End: 03-03-2024 Telephone encounter Paul Kendrick MD Work Phone: [facility] Comment on above: Back Pain Start: 03-02-2024 End: 03-02-[address] Sav Montes DC -Radiology, [facility] Work Phone: Start: 03-02-2024 End: 03-02-2024 [facility] Start: 01-15-2024 End: 01-15-2024 ambulatory Marry A Suppan [employer]PPORT EQUIPMENT MECHANIC.[employer]ERIAL LINEM[employer] Work Phone: [facility] Comment on above: Prior Authorization Start: 01-15-2024 End: 01-15-2024 Telephone encounter Paul Kendrick MD Work Phone: [facility] Comment on above: Insurance Authorizat ion (lansoprazole) Start: 01-13-2024 End: 01-13-2024 ambulatory MARRY A SUPPAN Facility:[facility] Start: 01-13-2024 End: 01-13-2024 Periodic preventive med est patient 18-39 yrs Marry Vogt Yovani CORTESN.AERIAL LINEMAN Work Phone: [facility] Comment on above: GERD without esophag itis (Primary Dx); RLS (restless legs syndrome); Seizures (HCC); Seizure disorder (HCC); Screening for depression; Encounter for screening examination for other mental health and behavioral disorders; Other vitamin B12 deficiency anemia; History of Angelika-en-Y gastric bypass Start: 12-26-2023 End: 12-27-2023 Refill Paul Kendrick MD Work Phone: [facility] Comment on above: Refill Request Start: 12-18-2023 End: 12-18-2023 Telephone encounter Paul Kendrick MD Work Phone: [facility] Comment on above: Injection Letter Start: 11-26-2023 End: 11-26-2023 Refill Paul Kendrick MD Work Phone: [facility] Comment on above: Refill Request Start: 11-13-2023 ambulatory Paul Kendrick MD Work Phone: [facility] [place] Comment on above: B12 Start: 10-28-2023 Refill Paul Kendrick MD Work Phone: [facility] Comment on above: Refill Request Start: 07-17-2023 Refill Paul Kendrick MD Work Phone: [facility] Comment on above: Refill Request Start: 06-29-2023 ambulatory Paul Kendrick MD Work Phone: [facility] Comment on above: [facility] Start: 05-29-2023 Telephone encounter Evelin dey APRN.[employer]ERIAL LINEMAN Work Phone: OB/Gynecology Comment on above: Results; Orders Start: 05-28-2023 ambulatory Cassius holland PA-C Work Phone: [facility] [place] Comment on above: [facility] Start: 05-28-2023 Telephone encounter Paul Kendrick MD Work Phone: [facility] Comment on above: Medication Problem Start: 05-21-2023 Telephone encounter Evelin dey KIRTI.AERIAL LINEMAN Work Phone: OB/Gynecology Comment on above: Results Start: 05-17-2023 End: 05-17-2023 Patient encounter procedure Evelin Lund KIRTI.AERIAL LINEMAN Work Phone: OB/Gynecology Comment on above: Vaginal pain (Primar y Dx); Vaginal discharge; Cervical cancer screening; Special screening examination for human papillomavirus (HPV) Start: 05-16-2023 End: 05-16-2023 ambulatory Cassius Jelani Selby PA-C Work Phone: [facility] Comment on above: GERD without esophag [...] Refill Paul Kendrick MD Work Phone: [facility] Comment on above: Refill Request Start: 12-16-2022 Refill Paul Kendrick MD Work Phone: [facility] [place] Comment on above: Refill Request Start: 11-28-2022 Telephone encounter Paul Kendrick MD Work Phone: [facility] [place] Comment on above: Patient Question Start: 11-15-2022 ambulatory Paul Kendrick MD Work Phone: [facility] Comment on above: B12 Start: 11-04-2022 ambulatory Paul Kendrick MD Work Phone: [facility] [place] Comment on above: Trazodone Start: 10-03-2022 End: 10-03-2022 Patient encounter procedure Paul Kendrick MD Work Phone: [facility] Comment on above: RLS (restless legs s yndrome) (Primary Dx); Seizures (HCC); FLOR (obstructive sleep apnea); Other vitamin B12 deficiency anemia; Folic acid deficiency (non anemic); History of Angelika-en-Y gastric bypass; Vitamin D deficiency; Acne comedone Start: 08-08-2022 End: 08-08-2022 Nursing evaluation of patient and report Mi Nurse Work Phone: [facility] Comment on above: Other vitamin B12 de ficiency anemia (Primary Dx); History of gastric bypass Start: 07-17-2022 End: 07-17-2022 ambulatory [facility] Work Phone: Start: 07-17-2022 End: 07-17-2022 Patient encounter procedure [facility]-Radiology, [place] Start: 07-11-2022 End: 07-11-2022 Patient encounter procedure [facility]-Ultrasound, [facility] Start: 07-09-2022 End: 07-09-2022 Nursing evaluation of patient and report Mi Nurse Work Phone: [facility] Comment on above: Other vitamin B12 de ficiency anemia (Primary Dx); History of gastric bypass Start: 07-03-2022 ambulatory Paul Kendrick MD Work Phone: [facility] Comment on above: Gabapentin Start: 07-02-2022 Refill Paul Kendrick MD Work Phone: [facility] Comment on above: Refill Request; Refi ll Request Start: 06-08-2022 End: 06-08-2022 Nursing evaluation of patient and report Mi Nurse Work Phone: [facility] Comment on above: Other vitamin B12 de ficiency anemia (Primary Dx); History of gastric bypass Start: 06-07-2022 Telephone encounter Tomasa rodriguez APRN.CNM Work Phone: OB/Gynecology Comment on above: Medication Problem Start: 06-05-2022 End: 06-05-2022 Patient encounter procedure Tomasa Alarcon [employer] EQUIPMENT MECHANIC.CNM Work Phone: OB/Gynecology Comment on above: Encounter for gyneco logical examination (general) (routine) without abnormal findings (Primary Dx); Screening for STD (sexually transmitted disease); Intrauterine contraceptive device threads lost, initial encounter Start: 06-05-2022 End: 06-05-2022 Patient encounter status Tomasa Alarcon [employer] SU[employer] EQUIPMENT MECHANIC.CNM Work Phone: OB/Gynecology Start: 05-16-2022 End: 05-16-2022 ambulatory [facility] Work Phone: Start: 05-16-2022 End: 05-16-2022 Patient encounter procedure [facility] Start: 05-11-2022 End: 05-11-2022 Nursing evaluation of patient and report Mi Nurse Work Phone: [facility] Comment on above: Other vitamin B12 de ficiency anemia (Primary Dx); History of gastric bypass Start: 04-26-2022 Telephone encounter Paul Kendrick MD Work Phone: [facility] Comment on above: Vit D Rx Start: 04-24-2022 Telephone encounter Paul Kendrick MD Work Phone: [facility] [place] Comment on above: Results Start: 04-10-2022 End: 04-10-2022 Nursing evaluation of patient and report Mi Nurse Work Phone: [facility] [place] Comment on above: Other vitamin B12 de ficiency anemia (Primary Dx); History of gastric bypass Start: 04-09-2022 ambulatory Cassius holland PA-C Work Phone: [facility] [place] Comment on above: vit D level Start: 04-09-2022 E-mail encounter fro m caregiver Cassius Selby PA-C Work Phone: [facility] Start: 04-04-2022 End: 04-04-2022 Patient encounter procedure Paul Kendrick MD Work Phone: [facility] Comment on above: Seizures (HCC) [...] and report Mi Nurse Work Phone: [facility] Comment on above: Other vitamin B12 [...] patient and report Mi Nurse Work Phone: [facility] [place] Comment on above: Other vitamin B12 de ficiency anemia (Primary Dx) Start: 02-04-2022 Refill Paul Kendrick MD Work Phone: [facility] Comment on above: Refill Request Start: 01-04-2022 Refill Cassius Holder on PA-C Work Phone: [facility] Comment on above: Refill Request Start: 2021 ambulatory Cassius Holder on PA-C Work Phone: [facility] Comment on above: Trazodone Start: 12-08-2021 End: 12-08-2021 Nursing evaluation of patient and report Mi Nurse Work Phone: [facility] [place] Comment on above: Other vitamin B12 de ficiency anemia (Primary Dx); History of gastric bypass Start: 12-06-2021 Telephone encounter Paul Kendrick MD Work Phone: [facility] Comment on above: Orders Start: 11-08-2021 End: 11-08-2021 Nursing evaluation of patient and report Mi Nurse Work Phone: [facility] Comment on above: Other vitamin B12 de ficiency anemia (Primary Dx); History of gastric bypass Start: 10-17-2021 Telephone encounter Paul Kendrick MD Work Phone: [facility] Comment on above: Insurance Authorizat ion (RETINA-A cream ) Start: 10-08-2021 ambulatory Cassius Jelani holland PA-C Work Phone: [facility] Start: 10-08-2021 Follow-up encounter Cassius Jelani COVARRUBIAS-C Work Phone: [facility] Comment on above: Follow up Start: 10-06-2021 Telephone encounter Paul Kendrick MD Work Phone: [facility] Comment on above: Opened In Error Start: 10-06-2021 End: 10-06-2021 Nursing evaluation of patient and report Mi Nurse Work Phone: [facility] Comment on above: Other vitamin B12 de ficiency anemia (Primary Dx); History of gastric bypass Start: 10-04-2021 End: 10-04-[address] Paul Kendrick Work Phone: [facility] Start: 10-03-2021 Telephone encounter Paul Kendrick MD Work Phone: [facility] Comment on above: Insurance Authorizat ion (Tretinoin Microsphere Gel) Start: 10-03-2021 End: 10-03-2021 Patient encounter procedure Cassius Jelani COVARRUBIAS-C Work Phone: [facility] Comment on above: GERD without esophag itis (Primary Dx); RLS (restless legs syndrome); Gastroenteritis; Acne comedone; Chronic insomnia; FLOR (obstructive sleep apnea); Vitamin D deficiency Start: 09-14-2021 End: 09-14-2021 Admission to same day surgery center Dr. Paul Kendrick Work Phone: [facility] Start: 09-08-2021 End: 09-08-2021 Nursing evaluation of patient and report Mi Nurse Work Phone: [facility] Comment on above: Other vitamin B12 de ficiency anemia (Primary Dx); History of gastric bypass Start: 08-28-2021 Refill Paul Kendrick MD Work Phone: [facility] Comment on above: Refill Request Start: 08-08-2021 End: 08-08-2021 Nursing evaluation of patient and report Mt Nurse Work Phone: [facility] Comment on above: Other vitamin B12 [...] 07-10-2021 Refill Paul Kendrick MD Work Phone: [facility] Comment on above: Refill Request Other vitamin B12 de ficiency anemia (Primary Dx) Start: 06-23-2021 Non-patient / Non-visit Dr. Rosa Kendrick Work Phone: [facility] Start: 06-22-2021 End: 06-23-2021 Evaluation and management of inpatient [facility] 3 Start: 06-22-2021 End: 06-22-2021 [facility] Start: 06-11-2020 End: 06-11-2020 Subsequent hospital visit by physician [facility] Work Phone: Radiology Comment on above: Thumb tendonitis [M7 7.8] Start: 04-08-2018 End: 04-08-2018 Patient encounter procedure KERRIE KOLB [facility] Start: 09-08-2015 End: 11-21-2015 Patient requested procedure Paul Kendrick MD Work Phone: [facility] Start: 06-30-2009 End: 09-13-2015 Patient encounter status Paul Kendrick MD Work Phone: [facility] Procedures Date Procedure Procedure Detail Performing Clinician Start: 09-23-2024 Total iron binding capacity measurement Dr. 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 Paul abdi MD Work Phone: Start: 04-13-2024 MRI of lumbar spine Dr. Paul Kendrick MD Work Phone: Start: 03-02-2024 X-ray of lumbar spine, two or three views Dr. 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 Paul Chavira Work Phone: Viral antigen assay Dr. Pepe Kendrick Work Phone: Plan of Treatment Date Care Activity Detail Author Start: 05-17-2028 Screening for malignant neoplasm of cervix [facility] Start: 06-06-2027 HPV TESTING HPV TESTING [facility] Start: 06-06-2027 PAP TESTING PAP TESTING [facility] Start: 06-06-2027 Screening for malignant neoplasm of cervix [facility] Start: 02-12-2026 Urine microalbumin profile [facility] Start: 01-12-2025 Anxiety Screening Anxiety Screening [facility] Start: 01-12-2025 Covid-19 Vaccine ( season) Covid-19 Vaccine () [facility] Comment on above: Postponed from 12/01/2023 (Declined at t his time) Start: 01-12-2025 Depression Screening Depression Screening [facility] Start: 01-12-2025 Pneumococcal vaccination Pneumococcal Vaccine (1 of 2 - PCV) [facility] Comment on above: Postponed from 1990 (Declined at t his time) Postponed from 12/29 (Declined at this time) Start: 11-30-2024 Influenza vaccination [facility] Start: 10-28-2024 End: 01-27-2025 CBC W Auto Differential panel - Blood COMPLETE BLOOD COUNT AND DIFFERENTIAL Lab Routine Low iron Expected: 10/28/2024, Expires: 01/27/2025 [facility] Work Phone: Comment on above: Expected: 10/28/2024, Expires: Start: 10-28-2024 End: 01-27-2025 Iron and Iron binding capacity panel - Serum or Plasma IRON AND TIBC Lab Routine Low iron Expected: 10/28/2024, Expires: 01/27/2025 [facility] Comment on above: Expected: 10/28/2024, Expires: Start: 10-26-2024 End: 10-26-2024 Patient encounter procedure 10/26/2024 8:15 AM EDT Office Visit OB/Gynecology [address] [place] [address] Tomasa Alarcon APRN.[facility] [address] [place] [address] Annual OB/Gynecology Comment on above: Annual Start: 09-28-2024 Influenza vaccination Influenza Vaccine (#1) [place] [facility] Comment on above: Postponed from 12/01/2023 (Declined at t his time) Start: 09-23-2024 [facility] Start: 09-14-2024 End: 12-14-2024 CBC W Auto Differential panel - Blood COMPLETE BLOOD COUNT AND DIFFERENTIAL Lab Routine History of Angelika-en-Y gastric bypass Expected: 09/14/2024, Expires: 12/14/2024 [facility] Work Phone: Comment on above: Expected: 09/14/2024, Expires: Start: 09-14-2024 End: 12-14-2024 Cobalamin (Vitamin B12) [Mass/volume] in Serum or Plasma VITAMIN B12 Lab Routine History of Angelika-en-Y gastric bypass Expected: 09/14/2024, Expires: 12/14/2024 [facility] Comment on above: Expected: 09/14/2024, Expires: Start: 09-14-2024 End: 12-14-2024 Comprehensive metabolic 2000 panel - Serum or Plasma COMPREHENSIVE METABOLIC PANEL Lab Routine History of Angelika-en-Y gastric bypass Expected: 09/14/2024, Expires: 12/14/2024 [facility] Comment on above: Expected: 09/14/2024, Expires: Start: 09-14-2024 End: 12-14-2024 Folate [Mass/volume] in Serum or Plasma FOLATE, SERUM Lab Routine History of Angelika-en-Y gastric bypass Expected: 09/14/2024, Expires: 12/14/2024 [facility] Comment on above: Expected: 09/14/2024, Expires: Start: 09-14-2024 End: 12-14-2024 Iron and Iron binding capacity panel - Serum or Plasma IRON AND TIBC Lab Routine History of Angelika-en-Y gastric bypass Expected: 09/14/2024, Expires: 12/14/2024 [facility] Comment on above: Expected: 09/14/2024, Expires: Start: 09-14-2024 End: 12-14-2024 VITAMIN B1 (THIAMINE), WHOLE BLOOD VITAMIN B1 (THIAMINE), WHOLE BLOOD Lab Routine History of Angelika-en-Y gastric bypass Expected: 09/14/2024, Expires: 12/14/2024 [facility] Comment on above: Expected: 09/14/2024, Expires: Start: 09-08-2024 HPV TESTING HPV TESTING [facility] Start: 09-08-2024 PAP TESTING PAP TESTING [facility] Start: 05-17-2024 Screening for malignant neoplasm of cervix Cervical Cancer Screening [facility] Start: 03-03-2024 [facility] Start: 01-13-2024 End: 01-13-2024 Patient encounter procedure 01/13/2024 3:40 PM EDT Office Visit [facility] [address] [place] [address] Marry Paredes APRN.AERIAL LINEMAN [address] [place] [address] Physical [facility] [place] Comment on above: Physical Start: 01-13-2024 End: 04-13-2024 25-hydroxyvitamin D3 [Mass/volume] in Serum or Plasma VITAMIN D 25 HYDROXY Lab Routine History of Angelika-en-Y gastric bypass Expected: 01/13/2024, Expires: 04/13/2024 [facility] Comment on above: Expected: 01/13/2024, Expires: Start: 01-13-2024 End: 04-13-2024 CBC W Auto Differential panel - Blood COMPLETE BLOOD COUNT AND DIFFERENTIAL Lab Routine RLS (restless legs syndrome) History of Angelika-en-Y gastric bypass Expected: 01/13/2024, Expires: 04/13/2024 [facility] Work Phone: Comment on above: Expected: 01/13/2024, Expires: Start: 01-13-2024 End: 04-13-2024 Cobalamin (Vitamin B12) [Mass/volume] in Serum or Plasma VITAMIN B12 Lab Routine Other vitamin B12 deficiency anemia Expected: 01/13/2024, Expires: 04/13/2024 [facility] Comment on above: Expected: 01/13/2024, Expires: Start: 01-13-2024 End: 04-13-2024 Comprehensive metabolic 2000 panel - Serum or Plasma COMPREHENSIVE METABOLIC PANEL Lab Routine History of Angelika-en-Y gastric bypass Expected: 01/13/2024, Expires: 04/13/2024 [facility] Comment on above: Expected: 01/13/2024, Expires: Start: 01-13-2024 End: 04-13-2024 Hemoglobin A1c in Blood HEMOGLOBIN A1C Lab Routine History of Angelika-en-Y gastric bypass Expected: 01/13/2024, Expires: 04/13/2024 [facility] Comment on above: Expected: 01/13/2024, Expires: Start: 01-13-2024 End: 04-13-2024 LIPID PANEL, NONFASTING LIPID PANEL, NONFASTING Lab Routine History of Angelika-en-Y gastric bypass Expected: 01/13/2024, Expires: 04/13/2024 [facility] Comment on above: Expected: 01/13/2024, Expires: Start: 01-13-2024 End: 04-13-2024 Magnesium [Mass/volume] in Serum or Plasma MAGNESIUM Lab Routine RLS (restless legs syndrome) Expected: 01/13/2024, Expires: 04/13/2024 [facility] Comment on above: Expected: 01/13/2024, Expires: Start: 01-13-2024 End: 04-13-2024 Thyrotropin [Units/volume] in Serum or Plasma THYROID STIMULATING HORMONE Lab Routine Seizure disorder (HCC) Other vitamin B12 deficiency anemia Expected: 01/13/2024, Expires: 04/13/2024 [facility] Comment on above: Expected: 01/13/2024, Expires: Start: 12-01-2023 Covid-19 Vaccine ( season) Covid-19 Vaccine ( season) [facility] Start: 12-01-2023 Covid-19 Vaccine ( season) Covid-19 Vaccine ( season) [facility] Start: 12-01-2023 Influenza vaccination [facility] Start: 11-14-2023 End: 02-13-2024 CBC W Auto Differential panel - Blood CBC + DIFF Lab Routine GERD without esophagitis Seizures (HCC) Expected: 11/14/2023, Expires: 02/13/2024 [facility] Work Phone: Comment on above: Expected: 11/14/2023, Expires: Start: 11-14-2023 End: 02-13-2024 Comprehensive metabolic 2000 panel - Serum or Plasma COMP METABOLIC PANEL Lab Routine GERD without esophagitis Seizures (HCC) Expected: 11/14/2023, Expires: 02/13/2024 [facility] Work Phone: Comment on above: Expected: 11/14/2023, Expires: 4 Start: 04-04-2023 COVID-19 VACCINE (#1) COVID-19 VACCINE (#1) [facility] Comment on above: Postponed from 06/28/1985 (Declined at t his time) Start: 04-04-2023 PNEUMOCOCCAL (1 - PCV) PNEUMOCOCCAL (1 - PCV) [facility] Comment on above: Postponed from 1990 (Declined at t his time) Start: 04-04-2023 Pneumococcal vaccination Pneumococcal Vaccine (1 - PCV) [facility] Comment on above: Postponed from 1990 (Declined at t his time) Start: 04-01-2023 Behavioral Health Screening Behavioral Health Screening [facility] Start: 04-01-2023 Depression Assessment Depression Assessment [facility] Start: 11-30-2022 Covid-19 Vaccine ( season) Covid-19 Vaccine ( season) [facility] Start: 11-30-2022 Influenza vaccination [facility] Start: 10-03-2022 End: 12-03-2022 25-hydroxyvitamin D3 [Mass/volume] in Serum or Plasma [facility] Work Phone: Comment on above: Expected: 10/03/2022, Expires: 3 Start: 10-03-2022 End: 12-03-2022 VITAMIN B1 (THIAMINE), WHOLE BLOOD [facility] Work Phone: Comment on above: Expected: 10/03/2022, Expires: 3 Start: 09-28-2022 Influenza vaccination INFLUENZA (#1) [facility] Comment on above: Postponed from 11/30/2021 (Declined at t his time) Start: 07-11-2022 Adult depression screening assessment DEPRESSION SCREENING [facility] Start: 04-24-2022 End: 06-24-2022 THYROID PEROXIDASE ANTIBODY BLOOD THYROID PEROXIDASE ANTIBODY BLOOD Lab Routine Elevated TSH Expected: 04/24/2022, Expires: 06/24/2022 [facility] Work Phone: Comment on above: Expected: 04/24/2022, Expires: 3 Start: 04-24-2022 End: 06-24-2022 Thyrotropin [Units/volume] in Serum or Plasma TSH BLD Lab Routine Elevated TSH Expected: 04/24/2022, Expires: 06/24/2022 [facility] Work Phone: Comment on above: Expected: 04/24/2022, Expires: Start: 04-24-2022 End: 06-24-2022 Thyroxine (T4) free [Mass/volume] in Serum or Plasma T4 FREE/FREE THYROX Lab Routine Elevated TSH Expected: 04/24/2022, Expires: 06/24/2022 [facility] Work Phone: Comment on above: Expected: 04/24/2022, Expires: 3 Start: 04-24-2022 End: 06-24-2022 Triiodothyronine (T3) [Mass/volume] in Serum or Plasma T3 BLD Lab Routine Elevated TSH Expected: 04/24/2022, Expires: 06/24/2022 [facility] Work Phone: Comment on above: Expected: 04/24/2022, Expires: Start: 04-05-2022 End: 06-05-2022 25-hydroxyvitamin D3 [Mass/volume] in Serum or Plasma VITAMIN D 25 HYDROXY Lab Routine Vitamin D deficiency Expected: 04/05/2022, Expires: 06/05/2022 [facility] Work Phone: Comment on above: Expected: 04/05/2022, Expires: Start: 04-05-2022 End: 06-05-2022 CBC W Auto Differential panel - Blood CBC + DIFF Lab Routine RLS (restless legs syndrome) Gastroenteritis GERD without esophagitis Expected: 04/05/2022, Expires: 06/05/2022 [facility] Work Phone: Comment on above: Expected: 04/05/2022, Expires: 3 Start: 04-05-2022 End: 06-05-2022 Comprehensive metabolic 2000 panel - Serum or Plasma COMP METABOLIC PANEL Lab Routine RLS (restless legs syndrome) Gastroenteritis GERD without esophagitis Expected: 04/05/2022, Expires: 06/05/2022 [facility] Work Phone: Comment on above: Expected: 04/05/2022, Expires: 3 Start: 04-05-2022 End: 06-05-2022 Magnesium [Mass/volume] in Serum or Plasma MAGNESIUM BLD Lab Routine Gastroenteritis GERD without esophagitis Expected: 04/05/2022, Expires: 06/05/2022 [facility] Work Phone: Comment on above: Expected: 04/05/2022, Expires: Start: 04-04-2022 End: 06-04-2022 25-hydroxyvitamin D3 [Mass/volume] in Serum or Plasma VITAMIN D 25 HYDROXY Lab Routine Poisoning by vitamin D, undetermined intent, sequela Expected: 04/04/2022, Expires: 06/04/2022 [facility] Work Phone: Comment on above: Expected: 04/04/2022, Expires: 3 Start: 04-04-2022 End: 06-04-2022 Cobalamin (Vitamin B12) [Mass/volume] in Serum or Plasma VITAMIN B12 BLOOD Lab Routine Other vitamin B12 deficiency anemia History of gastric bypass Expected: 04/04/2022, Expires: 06/04/2022 [facility] Work Phone: Comment on above: Expected: 04/04/2022, Expires: 3 Start: 04-04-2022 End: 06-04-2022 Folate [Mass/volume] in Serum or Plasma FOLATE SERUM Lab Routine Folate deficiency Expected: 04/04/2022, Expires: 06/04/2022 [facility] Work Phone: Comment on above: Expected: 04/04/2022, Expires: 3 Start: 04-04-2022 End: 06-04-2022 Iron and Iron binding capacity panel - Serum or Plasma IRON + TIBC Lab Routine History of gastric bypass Expected: 04/04/2022, Expires: 06/04/2022 [facility] Work Phone: Comment on above: Expected: 04/04/2022, Expires: 3 Start: 04-04-2022 End: 06-04-2022 bilirubin panel [Mass/volume] - Serum or Plasma BILIRUBIN FRACTION Lab Routine Hyperbilirubinemia Expected: 04/04/2022, Expires: 06/04/2022 [facility] Work Phone: Comment on above: Expected: 04/04/2022, Expires: 3 Start: 04-04-2022 End: 06-04-2022 Thyrotropin [Units/volume] in Serum or Plasma TSH BLD Lab Routine Hair loss Expected: 04/04/2022, Expires: 06/04/2022 [facility] Work Phone: Comment on above: Expected: 04/04/2022, Expires: 3 Start: 04-04-2022 End: 06-04-2022 VITAMIN B1 (THIAMINE), WHOLE BLOOD VITAMIN B1 (THIAMINE), WHOLE BLOOD Lab Routine History of gastric bypass Expected: 04/04/2022, Expires: 06/04/2022 [facility] Work Phone: Comment on above: Expected: 04/04/2022, Expires: 3 Start: 04-01-2022 Adult depression screening assessment DEPRESSION SCREENING [facility] Start: 11-30-2021 Influenza vaccination [facility] Start: 09-14-2021 Patient discharge [facility] Work Phone: Start: 09-14-2021 Anes lithotrp xtrcorp shock wave w/o water bath ANESTH KIDNEY STONE DESTRUCT [facility] Work Phone: Start: 09-14-2021 Lithotripsy xtrcorp shock wave FRAGMENTING OF KIDNEY STONE [facility] Work Phone: Start: 07-12-2021 End: 09-11-2021 VITAMIN D 25 HYDROXY [facility] Work Phone: Comment on above: Expected: 07/12/2021, Expires: Start: 06-23-2021 Patient discharge [facility] Work Phone: Start: 06-22-2021 Application of intermittent pneumatic compression device [facility] Work Phone: Start: 06-22-2021 Collection of urine and strain for calculus [facility] Work Phone: Start: 06-22-2021 Incentive spirometry [facility] Work Phone: Start: 06-22-2021 Admission procedure [facility] Work Phone: Start: 06-22-2021 Assessment of risk of venous thromboembolism [facility] Work Phone: Start: 06-22-2021 Insertion of catheter into peripheral vein [facility] Work Phone: Start: 06-22-2021 Providing care according to standard [facility] Work Phone: Start: 06-22-2021 End: 06-22-2021 [facility] Work Phone: Start: 06-22-2021 Ambulation without limitation [facility] Work Phone: Start: 06-22-2021 Measuring intake and output [facility] Work Phone: Start: 06-22-2021 Following clinical pathway protocol [facility] Work Phone: Start: 06-22-2021 Anes transurethral w/urethrocystoscopy nos ANESTH BLADDER SURGERY [facility] Work Phone: Start: 06-22-2021 Basic metabolic panel calcium total METABOLIC PANEL TOTAL CA [facility] Work Phone: Start: 06-22-2021 Blood count complete auto&auto difrntl wbc COMPLETE CBC W/AUTO DIFF WBC [facility] Work Phone: Start: 06-22-2021 Ct abdomen & pelvis w/o contrast material CT ABD & PELVIS W/O CONTRAST [facility] Work Phone: Start: 06-22-2021 Culture bacterial quanttative colony count urine URINE CULTURE/COLONY COUNT [facility] Work Phone: Start: 06-22-2021 Cysto w/insert ureteral stent CYSTOSCOPY AND TREATMENT [facility] Work Phone: Start: 06-22-2021 Gonadotropin chorionic qualitative CHORIONIC GONADOTROPIN ASSAY [facility] Work Phone: Start: 06-22-2021 Urine culture Urine Culture [facility] Work Phone: Start: 06-22-2021 Urine test visual color cmprsn meths URINE TEST [facility] Work Phone: Start: 06-22-2021 Urnls dip stick/tablet reagent auto microscopy URINALYSIS AUTO W/SCOPE [facility] Work Phone: Start: 04-01-2021 DEPRESSION ASSESSMENT DEPRESSION ASSESSMENT [facility] Start: 12-30-2003 ONE PNEUMOVAX PRIOR TO AGE 65 ONE PNEUMOVAX PRIOR TO AGE 64 [facility] Start: 2002 Anxiety Screening Anxiety Screening [facility] Start: 2002 Depression Screening Depression Screening [facility] Start: 1990 PNEUMOCOCCAL (1 - PCV) PNEUMOCOCCAL (1 - PCV) [facility] Start: 1990 Pneumococcal vaccination Pneumococcal Vaccine (1 of 2 - PCV) [facility] Start: 1989 COVID-19 VACCINE (#1) COVID-19 VACCINE (#1) [facility] Start: 1989 COVID-19 VACCINE (1) COVID-19 VACCINE (1) [facility] Start: 06-28-1985 COVID-19 VACCINE (#1) COVID-19 VACCINE (#1) [facility] Start: 1984 HEPATITIS B (1 of 3 - 3-dose series) HEPATITIS B (1 of 3 - 3-dose series) [facility] Bacteria identified in Urine by Culture BACTERIAL CULTURE, URINE Microbiology Routine Recurrent UTI (urinary tract infection) 09/01/2024 12:22 PM EDT [facility] Work Phone: BACTERIAL VAGINOSIS AMPLIFICATION BACTERIAL VAGINOSIS AMPLIFICATION Lab Routine Vaginal discharge Vaginal odor 02/09/2022 11:29 AM EST [facility] Work Phone: BACTERIAL VAGINOSIS AMPLIFICATION BACTERIAL VAGINOSIS AMPLIFICATION Lab Routine Screening for STD (sexually transmitted disease) 06/05/2022 5:00 PM EST [facility] Work Phone: BACTERIAL VAGINOSIS NAAT BACTERI AL VAGINOSIS NAAT Lab Routine Vaginal discharge Ordered: 05/15/2023 [facility] Work Phone: Comment on above: Ordered: 05/15/2023 BACTERIAL VAGINOSIS NAAT BACTERI AL VAGINOSIS NAAT Lab Routine Vaginal discharge 05/17/2023 1:47 PM EST [facility] Work Phone: BARRIE / TRICHOMONA S AMPLIFICATION BARRIE / TRICHOMONAS AMPLIFICATION Microbiology Routine Vaginal discharge Vaginal odor 02/09/2022 11:29 AM EST [facility] Work Phone: BARRIE / TRICHOMONA S AMPLIFICATION BARRIE / TRICHOMONAS AMPLIFICATION Microbiology Routine Screening for STD (sexually transmitted disease) 06/05/2022 5:00 PM EST [facility] Work Phone: BARRIE/TRICHOMONAS NAAT BARRIE /TRICHOMONAS NAAT Lab Routine Vaginal discharge Ordered: 05/15/2023 [facility] Work Phone: Comment on above: Ordered: 05/15/2023 BARRIE/TRICHOMONAS NAAT BARRIE /TRICHOMONAS NAAT Lab Routine Vaginal discharge 05/17/2023 1:47 PM EST [facility] Work Phone: Chlamydia trachomatis+Neisseria gonorrhoeae DNA [Presence] in Unspecified specimen by NADIR with probe detection GC/CHLAMYDIA DNA DET Lab Routine Vaginal discharge Vaginal odor 02/09/2022 11:29 AM EST [facility] Work Phone: Chlamydia trachomatis+Neisseria gonorrhoeae DNA [Presence] in Unspecified specimen by NADIR with probe detection GC/CHLAMYDIA DNA DET Lab Routine Screening for STD (sexually transmitted disease) 06/05/2022 3:28 PM EST [facility] Work Phone: Chlamydia trachomatis+Neisseria gonorrhoeae DNA [Presence] in Unspecified specimen by NADIR with probe detection GONORRHEA/CHLAMYDIA NAAT Lab Routine Vaginal discharge Ordered: 05/15/2023 [facility] Work Phone: Comment on above: Ordered: 05/15/2023 COLPOSCOPY COLPOSCOPY Proce dures Routine ASCUS with positive high risk HPV cervical Ordered: 05/29/2023 [facility] Work Phone: Comment on above: Ordered: 05/29/2023 ECG COMPLETE ECG COMPLETE ECG Routine Screening, heart disease, ischemic Ordered: 09/14/2024 [facility] Comment on above: Ordered: 09/14/2024 Microscopic observat ion [Identifier] in Vaginal fluid by Gram stain BACT/BARRIE VAG GRAM STAIN Microbiology Routine Vaginal discharge 07/12/2021 3:36 PM EDT [facility] Work Phone: Microscopic observat ion [Identifier] in Vaginal fluid by Gram stain BACT/BARRIE VAG GRAM STAIN Microbiology Routine Vaginal discharge 07/31/2021 1:51 PM EDT [facility] Work Phone: PAP FLUID CERVICAL SCREENING PAP FLUID CERVICAL SCREENING Lab Routine Encounter for gynecological examination (general) (routine) without abnormal findings 06/05/2022 3:28 PM [facility] Work Phone: PAP TEST PAP TEST Lab [facility] Cervical cancer screening Special screening examination for human papillomavirus (HPV) 05/17/2023 1:47 PM [facility] Work Phone: Patient Education [facility] Work Phone: Patient referral [facility] Work Phone: UROGENITAL UREAPLASM A AND MYCOPLASMA SPECIES BY PCR, FOR GENITAL, RECTAL, URINE SAMPLES UROGENITAL UREAPLASMA AND MYCOPLASMA SPECIES BY PCR, FOR GENITAL, RECTAL, URINE SAMPLES Lab Routine Vaginal pain 05/17/2023 1:47 PM [facility] Work Phone: End: 07-07-2023 Us transvaginal US FEMALE PELVIS TRANSVAG Radiology Routine Intrauterine contraceptive device threads lost, initial encounter 1 Occurrences starting 06/05/2022 until 07/07/2023 [facility] Work Phone: Comment on above: 1 Occurrences starting 06/05/2022 until 07/07/2023 [facility] Immunizations Immunization Date Immunization Notes Care Provider [facility] 03-31-2018 influenza virus vacc ine, unspecified formulation Paul Kendrick MD Work Phone: [facility] 02-13-2016 influenza, injectabl e, quadrivalent, preservative free Paul Kendrick MD Work Phone: [facility] 02-13-2016 tetanus toxoid, redu anjel diphtheria toxoid, and acellular pertussis vaccine, adsorbed Paul Kendrick MD Work Phone: [facility] 02-19-2014 influenza, live, intranasal, quadrivalent NA Bal HURTADO Work Phone: [facility] Payers Date Payer Category Payer Self-pay [id number] 2023 Private Health Insurance [id number] 2022 Private Health Insurance [id number] 2016 Unknown [id number] 2014 Medicaid [place] [employer] [place] [employer] [id number] 2014-Present [phone] [place] [id number] Medicaid [id number] 2014 Medicaid [id number] Unknown [id number] 62 Unknown [id number] 62 Unknown [id number] 62 Unknown [id number] 62 Unknown [id number] 62 Unknown [id number] 62 Unknown [id number] 62 Unknown [id number] 62 Unknown [id number] 62 Social History Date Type Detail Facility [facility] Work Phone: Start: 06-22-2021 End: 09-07-2021 Tobacco smoking status MAIS Unknown if ever smoked [facility] Start: 1985 Sex Assigned At Female [facility] Start: 08-29-2016 End: 01-13-2024 Tobacco smoking status NHIS Smokes tobacco daily [facility] History of tobacco use Cigarette Smoker C [facility] Start: 08-29-2016 End: 08-08-2022 Cigarettes smoked current (pack per day) - Reported 0.5 [facility] Start: 08-29-2016 End: 01-13-2024 Tobacco use and exposure Smokeless tobacco non-user [facility] Start: 06-07-2021 End: 09-24-2024 Alcohol intake Current drinker of alcohol (finding) [facility] Start: 04-01-2021 End: 03-28-2022 History SDOH Alcohol Frequency 4 [facility] Start: 04-01-2021 End: 03-28-2022 History SDOH Alcohol Std Drinks 1 [facility] Start: 02-14-2021 History SDOH Alcohol Comment social [facility] Start: 04-01-2021 End: 03-28-2022 History SDOH Social Connections Phone 5 [facility] Start: 04-01-2021 End: 03-28-2022 History SDOH Social Connections Christianity 3 [facility] Start: 04-01-2021 End: 03-28-2022 History SDOH Physical Activity DPW 2 [facility] Start: 08-04-2019 Education 12 [facility] Start: 04-24-2020 End: 07-31-2021 Exposure to SARS-CoV-2 (event) Not sure [facility] Start: 03-28-2022 History SDOH Physical Activity MPS 6 [facility] Start: 03-28-2022 End: 08-08-2022 Social connection and isolation panel [facility] Do you belong to any clubs or organizations such as yazidism groups, unions, fraternal or athletic groups, or school groups? Yes [facility] Are you now , , , , never or living with a partner? [facility] How often to you hav e a drink containing alcohol? 2-3 time sa week [facility] How many standard dr inks containing alcohol do you have on a typical day? 1 or 2 [facility] How often do you hav e 6 or more drinks on 1 occasion? Never [facility] How hard is it for y ou to pay for the very basics like food, housing, medical care, and heating Not very hard [facility] Adult Depression Screening Assessment 0 [facility] Do you feel stress - tense, restless, nervous, or anxious, or unable to sleep at night because your mind is troubled all the time - these days [OSQ] Only a little [facility] (I/We) worried chrissy er (my/our) food would run out before (I/we) got money to buy more. Never true [facility] In the past 12 month s, was there a time when you were not able to pay the mortgage or rent on time? No [facility] Start: 04-09-2020 Gender identity Identifies as female gender (finding) [facility] Start: 04-09-2020 Sexual orientation Heterosexual (finding) [facility] How often to you hav e a drink containing alcohol? Monthly or less [facility] How hard is it for y ou to pay for the very basics like food, housing, medical care, and heating Somewhat hard [facility] Do you feel stress - tense, restless, nervous, or anxious, or unable to sleep at night because your mind is troubled all the time - these days [OSQ] Rather much [facility] Start: 03-09-2020 Alcohol Comment one drink a month [facility] Start: 06-16-2024 Sex Female (finding) [facility] Do you feel stress - tense, restless, nervous, or anxious, or unable to sleep at night because your mind is troubled all the time - these days [OSQ] To some extent [facility] Start: 09-22-2024 Tobacco smoking status NHIS Ex-smoker (finding) [facility] Medical Equipment Procedure Code Equipment Code Equipment [...] 0 09/02/19 7:03 AM EDT User, Nemesio [facility] 09-01-2024 How often to you hav e a drink containing alcohol? Never 09/01/2024 7:03 AM EDT User, Jasmint Never [facility] 09-01-2024 Functional status Patient does n ot drink 09/01/2024 7:03 AM EDT User, Nemesio Patient does not drink [facility] 09-01-2024 How often do you hav e 6 or more drinks on 1 occasion? Never 09/01/2024 7:03 AM EDT User, Jasmint Never [facility] 06-23-2021 Functional status Ambulates [facility] Work Phone: 10-19-2014 Are you deaf, or do you have serious difficulty hearing No 10/19/2014 9:45 AM Debby Short RN No [facility] 10-19-2014 Are you blind, or do you have serious difficulty seeing, even when wearing glasses No 10/19/2014 9:45 AM Debby Short RN No [facility] 10-19-2014 Do you have serious difficulty walking or climbing stairs No 10/19/2014 9:45 AM Debby Short RN No [facility] 10-19-2014 Do you have difficul ty dressing or bathing No 10/19/2014 9:45 AM Debby Short RN No [facility] 10-19-2014 Because of a physica l, mental, or emotional condition, do you have difficulty doing errands alone such as visiting a physician's office or shopping No 10/19/2014 9:45 AM Debby Short RN No [facility] Mental Status Date Assessment Result Facility 09-14-2021 Cognitive function Voice/Name [facility] Work Phone: 06-23-2021 Cognitive function Level Of Cons ciousness Awake;Alert;Appropriate;Fol lows Commands [facility] Work Phone: 06-23-2021 Cognitive function Voice/Name [facility] Work Phone: 10-19-2014 Because of a physica l, mental, or emotional condition, do you have serious difficulty concentrating, remembering, or making decisions No 10/19/2014 9:45 AM EDT Debby Wilkins RN No [facility] Clinical Notes 08-29-2016 to 09-29-2024 Telephone Encounter - Liliana Smith RN - 09/29/2024 9:10 AM EDTTelephone Encounter - Liliana Smith RN - 09/29/2024 9:10 AM EDTTelephone Encounter - Nicole Duff MA - 09/28/2024 12:55 PM EDT Note Date & Type Note Facility 09-29-2024 Telephone encounter Note Shanna with [facility] called in and was asking about the ferrous gluconate and ferrous sulfate that were called in yesterday. I told her the ferrous sulfate had been canceled. She verbalized understanding. Liliana Smith RN [facility] 09-29-2024 Miscellaneous Notes Shanna with [facility] called in and was asking about the ferrous gluconate and ferrous sulfate that were called in yesterday. I told her the ferrous sulfate had been canceled. She verbalized understanding. Liliana Smith RN documented in this encounter [facility] 09-28-2024 Telephone encounter Note Patient made aware of provider message. She declines of any black or bloody stools. She will start the iron as advised and recheck labs [facility] 09-28-2024 Miscellaneous Notes Patient made aware [...] View External Labs - Miscellaneous Lab [ID [id number]] View External Labs - Miscellaneous Lab [ID [id number]] View External Labs - [facility]-Blood type [ID [id number]] documented in this encounter [facility] 09-28-2024 Telephone encounter Note Blood counts are ok. Iron is low. Likely due to her history of gi surgery. After surgery, start on iron iron once a day. Recheck cbc and iron in four to six weeks. Make sure no signs of black or bloody stools. [facility] 09-25-2024 Telephone encounter Note View External Labs - Miscellaneous Lab [ID [id number]] View External Labs - Miscellaneous Lab [ID [id number]] View External Labs - [facility]-Blood type [ID [id number]] [facility] 09-22-2024 Telephone encounter Note EKG was retransmitted and printed and faxed as requested. Will scan to the chart as well [facility] 09-22-2024 Miscellaneous Notes EKG was retransmitted and printed and faxed as requested. Will scan to the chart as well Called pt and got phone number for nurse at [facility]. Called and spoke with Carmita and fax # is [phone]. She would like the actual copy of [...] microdiscectomy on 09/30/[address] Pizano at [facility]. - No previous anesthesia complications reported. - Ordered EKG to ensure cardiac stability prior to surgery. EKG normal with NSR - Medical clearance form completed. Pt is going to call and see if that will suffice and if it doesn't, she will send [facility] msg requesting report. documented in this encounter [facility] 09-22-2024 Telephone encounter Note Called pt and got phone number for nurse at [facility]. Called and spoke with Carmita and fax # is [phone]. She would like the actual copy of the EKG faxed when we get it. [facility] 09-22-2024 Telephone encounter Note Pt calling [...] microdiscectomy on 09/30/[address] Pizano at [facility]. - No previous anesthesia complications reported. - Ordered EKG to ensure cardiac stability prior to surgery. EKG normal with NSR - Medical clearance form completed. Pt is going to call and see if that will suffice and if it doesn't, she will send [employer] msg requesting report. [facility] 09-14-2024 Note HNO ID: [id number] Author: PAUL KENDRICK MD Service: ? Author Type: Physician Type: Progress Notes Filed: 09/14/2024 20:17 Note Text: Citlali Beckwith is a 38-year-old female with a history of recurrent UTIs, nephrolithiasis, and sleep apnea, presenting for preoperative evaluation prior to L5-S1 microdiscectomy. HPI Preoperative Evaluation: - Scheduled for L5-S1 left microdiscectomy on 09/30/2024 at [facility]. - No known personal or family history [...] three times a day as needed. Acidophilus-Pectin, Southlake 25 million cell -100 mg tab Take [...] Hypertension Maternal Grandfather CHF Heart Maternal Grandfather [place] Cancer Paternal Grandmother throat cancer Stroke Paternal [...] (-) swelling Respiratory: (more content not included)... [facility] 09-14-2024 History of Present illness Narrative Citlali Beckwith is a 38-year-old female with a history of recurrent UTIs, nephrolithiasis, and sleep apnea, presenting for preoperative evaluation prior to L5-S1 microdiscectomy. HPI Preoperative Evaluation: - Scheduled for L5-S1 left microdiscectomy on 09/30/2024 at [facility]. - No known personal or family history [...] three times a day as needed. Acidophilus-Pectin, Southlake 25 million cell -100 mg tab Take [...] Hypertension Maternal Grandfather CHF Heart Maternal Grandfather [place] Cancer Paternal Grandmother throat cancer Stroke Paternal [...] microdiscectomy on 09/30/[address] Pizano at [facility]. - No previous anesthesia complications reported. - [...] apnea) (G47.33) - Previously severe, now mild bfpx-Xaux-hm-Y gastric bypass. - No current treatment; anesthesia [...] to patient) Paul Kendrick MD Recording using [email or web address] software for draft documentation of the visit was discussed with the patient/authorized outside dealer sales representative; all questions welcomed and answered. Patient/authorized outside dealer sales representative agreed to proceed documented in this encounter [facility] 09-14-2024 Instructions Paul Kendrick MD - 09/14/2024 7:44 PM EDT - Expect a phone call on September 14 to confirm your surgery time for the L5-S1 left microdiscectomy with Dr. Pizano at [facility], and another call the day before. If you do not receive these calls, contact the surgical assist s office. - Arrange blood tests (complete blood count, B12 level, iron, folate) at your convenience - Continue taking your nightly dose of Keflex as prescribed for your urinary tract infection prophylaxis. - Remind the surgical and anesthesia teams that you have mild sleep apnea so they can monitor your breathing after surgery. documented in this encounter [facility] 09-08-2024 Evaluation note Diagnosis Onset Date Resolution Lumbar disc herniation with radiculopathy acute September 08 1:35pm [facility] Work Phone: 1(235) 708-813206-03-2025 Instructions* Patient Instructions* Marry Paredes APRN.JESICA - 09/01/2024 12:13 PM EDT - Continue your nightly cephalexin; refill has been sent to [facility]. - Start clindamycin and fluconazole (Diflucan) from your local pharmacy to treat your current bacterial and yeast symptoms. - You may use nitrofurantoin (Macrobid) for urinary infection management; prescription sent to [facility] pharmacy. - A urine culture has been sent; results are expected in 1-2 days and will guide any changes in your treatment. - Your gabapentin prescription has been renewed; please pick it up at your pharmacy. - Follow up with Dr. Degroot (urologist) for long-term management of your antibiotic regimen. documented in this encounterOhio State [facility]ing [facility]06-03-2025 NoteHNO ID: [id number] Author: MARRY PAREDES APRN.CNP Service: ? Author [...] three times a day as needed. Acidophilus-Pectin, Southlake 25 million cell -100 mg tab Take [...] Hypertension Maternal Grandfather CHF Heart Maternal Grandfather [place] Cancer Paternal Grandmother throat cancer Stroke Paternal [...] NECK: Supple, no lymph (more content not included)...[facility] 09-01-2024 History of Present illness Narrative* Marry Paredes APRN.AERIAL LINEMAN - 09/01/2024 12:00 PM EDT This is [...] three times a day as needed. Acidophilus-Pectin, Southlake 25 million cell -100 mg tab Take [...] Hypertension Maternal Grandfather CHF Heart Maternal Grandfather [place] Cancer Paternal Grandmother throat cancer Stroke Paternal [...] as needed for worsening/no improvement. Marry Paredes APRN.AERIAL LINEMAN documented in this encounterOhio [facility]ing [facility]05-29-2025 Note* Addendum Note - Paul Kendrick MD - 08/27/2024 8:21 AM EDTAddended by: PAUL KENDRICK on: 08/27/2024 08:21 AM Modules accepted: Orders [facility]05-29-2025 Miscellaneous Notes* Addendum Note - Paul [...] 27, 2024 7:04 AM documented in this encounterOhio State Harding Hospital05-29-2025 Telephone encounter Note * Telephone Encounter [...] Rodriges LPN August 27, 2024 7:04 AM [facility]03-18-2025 Discharge summary Author Ambrose Calixto [facility] Note Date/Time June 16, 2024 8:5 5am [facility] Physical Therapy [facility] [address] [place] [address] [address] [place] [address] / REHABILITATION SERVICES DISCHARGE SUMMARY MR#: [id number] Acct: [id number] Name: CITLALI BECKWITH Rep #: [id number] : 1985 38 From: Ambrose Calixto PT, [...] Blas MD; Dr. Paul Kendrick MD ~ [facility] Signed [facility] Work Phone: 1(753) 970-792203-18-2025 Discharge summary [facility] Physical Therapy [facility] [address] [place] [address] [address] [place] [address] / REHABILITATION SERVICES DISCHARGE SUMMARY MR#: [id number] Acct: [id number] Name: CITLALI BECKWITH Rep #: [id number] : 1985 38 From: Ambrose Calixto PT, ATC Referring Dr.: Dr. Shayne lBas MD Status : REG RCR Insurance: CIG[employer] [...] Back Score: 36 06/16/24 0855 CC: Dr. Shayen Blas MD; Dr. Paul Kendrick MD ~ [facility] Signed [facility]02-04-2025 Evaluation note* Diagnosis Onset Date Resolution Status Admit Date Lumbar disc herniation acute [place] 2024 8:12am [facility] Work Phone: [phone]) 800-560112-04-2024 Telephone encounter Note* Telephone Encounter - Gina Kim RN - 03/04/2024 11:10 AM EST Patient calls to request referral to pain management, demographics, and x-ray results be faxed to Dr. Roth. Faxed per request to [phone]. Gina Kim RN [facility]12-04-2024 Miscellaneous Notes* Telephone Encounter - Gina Kim RN - 03/04/2024 11:10 AM EST Patient calls to request referral to pain management, demographics, and x-ray results be faxed to Dr. Roth. Faxed per request to [phone]. Gina Kim RN documented in this encounterOhio State Harding Hospital12-04-2024 NoteHNO ID: [id number] Author: ?, ?, ? Service: ? Author Type: ? Type: Progress Notes Filed: 03/04/2024 11:05 Note Text: POPULATION HEALTH NAVIGATION OUTREACH Action/[facility] Support: Called pt to schedule an appt [...] Signature: Paulina Wiley March 04, 2024 11:04 [facility]12-04-2024 History of Present illness Narrative* Paulina Wiley - 03/04/2024 11:04 AM EST POPULATION HEALTH NAVIGATION OUTREACH Action/[facility] Support: Called pt to schedule an appt [...] 04, 2024 11:04 AM documented in this encounterOhio State [facility]ing Hospital12-04-2024 NotePatient Outreach (NETNAV) CITLALI BECKWITH ([id number]) 1985 F Date Time Provider Department 03/04/24 NO PCP NETNAV During your visit today, we recorded the following information about you: Paulina Wiley 03/04/2024 11:05 AM Signed POPULATION HEALTH NAVIGATION OUTREACH Action/[facility] Support: Called pt to schedule an appt [...] Date Reviewed: 01/13/2024 Reviewed by: Marry Paredes APRN.AERIAL LINEMAN - Fully Assessed Prescriptions as of 03/04/2024 [...] 90 DAYS, THEN AFTER intercourse - Acidophilus-Pectin, [place]lake 25 million cell -100 mg tab Take [...] [Z72.0] 08/26/2007 Routine general medical examination at [facility]*06/30/2009 09/13/2015 Class: Chronic Routine gynecological examination [Z01.419] [...] bypass [Z98.84] 12 (more content not included)... [facility]12-03-2024 Telephone encounter Note* Telephone Encounter - Meche Walsh MA - 03/03/2024 1:50 PM EST Patient was notified and will do pain management please file order Meche Walsh MA [facility]12-03-2024 Miscellaneous Notes* Telephone Encounter - Meche [...] for the results from the x-rays from [facility]. Liliana Smith, RN * Telephone Encounter - [...] any injury. Had x-ray completed today at [facility] but not resulted yet. Is asking about a cortisone injection? Is aware may need to see ortho for injection and she had seen Dr. Coronado in the past. Is not able to afford multiply co-payments and declined an appointment with PCP at this time. documented in this encounterOhio State [facility]ing Hospital12-03-2024 Telephone encounter Note * Telephone Encounter - Paul Kendrick MD - 03/03/2024 11:04 AM EST Xray shows some degenerative changes. I can refer her to pain management or spine med. Let me know if interested. [facility]12-03-2024 Telephone encounter Note* Telephone Encounter - Liliana Smith RN - 03/03/2024 8:36 AM EST Protocol recommends go to ER now. Pt will be going to [facility] ER. Care plan reviewed with patient. Patient [...] but has a Mirania. Protocols used: Back Rkdt-RNKXT-EN [facility]12-03-2024 Miscellaneous Notes* Telephone Encounter - Liliana Smith RN - 03/03/2024 8:36 AM EST Protocol recommends go to ER now. Pt will be going to [facility] ER. Care plan reviewed with patient. Patient [...] but has a Mirania. Protocols used: Back Hevh-PFTRF-PL documented in this encounterOhio State Harding Hospital12-03-2024 Telephone encounter Note * Telephone Encounter - Nicole Duff MA - 03/03/2024 8:26 AM EST X-ray scanned in for review Nicole Duff MA March 03, 2024 8:27 AM [facility]12-02-2024 Telephone encounter Note* Telephone Encounter - [...] for the results from the x-rays from [facility]. Liliana Smith RN [facility]12-02-2024 Telephone encounter Note* Telephone Encounter - Paul Kendrick MD - 03/02/2024 12:09 PM EST Usually injections like that involve seeing someone like pain management, not ortho. What she describes actually sounds like spine. Hard to decide without one of us seeing her. Sometimes do physical therapy also. Likely needs seen [facility]12-02-2024 Telephone encounter Note* Telephone Encounter - [...] any injury. Had x-ray completed today at [facility] but not resulted yet. Is asking about a cortisone injection? Is aware may need to see ortho for injection and she had seen Dr. Coronado in the past. Is not able to afford multiply co-payments and declined an appointment with PCP at this time. [facility]10-16-2024 Telephone encounter Note* Telephone Encounter - Meche Walsh MA - 01/15/2024 1:51 PM EDT Images from the original note were not included. PA approved till 01/25 Patient notified [facility]10-16-2024 Miscellaneous Notes* Telephone Encounter - Meche Walsh MA - 01/15/2024 1:51 PM EDT Images from the original note were not included. PA approved till 01/25 Patient notified * Telephone Encounter - Meche Walsh MA - 01/15/2024 11:44 AM EDT Received PA request from pharmacy for lansoprazole submitted through [employer] Méndez:[email or web address] Meche Walsh MA documented in this encounterOhio State Harding Hospital10-16-2024 Telephone encounter Note * Telephone Encounter - Meche Walsh MA - 01/15/2024 11:44 AM EDT Received PA request from pharmacy for lansoprazole submitted through [employer] Méndez:[email or web address] Meche Walsh MA [facility]10-14-2024 Instructions* Patient Instructions* Marry Paredes APRN.CNP - 01/13/2024 4:29 PM EDT 1) Check labs - non fasting 2) Follow up in 6 months documented in this encounterOhio State Harding Hospital10-14-2024 NoteHNO ID: [id number] Author: MARRY PAREDES APRN.CNP Service: ? Author [...] Comment: Added automatically from request for surgery [id number] Rls (Restless Legs Syndrome) - 08/29/2016 Anemia [...] Sig Dispense Refill dextroamphetami (more content not included)...[facility] 01-13-2024 History of Present illness Narrative* Marry Paredes APRN.AERIAL LINEMAN - 01/13/2024 4:13 PM EDT Chief Reason [...] Comment: Added automatically from request for surgery [id number] Rls (Restless Legs Syndrome) - 08/29/2016 Anemia [...] FOR 90 DAYS, THEN AFTER intercourse Acidophilus-Pectin, [place]lake 25 million cell -100 mg tab Take [...] 1 capsule by mouth once daily. 30 [id number] Cholecalciferol, Vitamin D3, 25 mcg (1,000 unit) cap Take 1 capsule by mouth once daily. 30 [id number] No current facility-administered medications for this visit. [...] Up Plans: 6 months documented in this encounterOhio State [facility]ing Hospital09-27-2024 Telephone encounter Note * Telephone Encounter [...] Hunter LPN December 27, 2023 8:18 AM [facility]09-27-2024 Miscellaneous Notes* Telephone Encounter - Marry [...] 27, 2023 8:18 AM documented in this encounterOhio State Harding Hospital09-18-2024 Telephone encounter Note * Telephone Encounter - Liliana Smith RN - 12/18/2023 11:09 AM EDT Letter printed and faxed to Kristin Tejeda at the [facility], fax # [phone]. [facility]-18-[facility] Miscellaneous Notes* Telephone Encounter - Liliana Smith RN - 12/18/2023 11:09 AM EDT Letter printed and faxed to Kristin Tejeda at the [facility], fax # [phone]. * Telephone Encounter - Paul Kendrick MD [...] send it to Kristin Tejeda at the [facility], fax # [phone]. Pt states she is due to have an injection today. documented in this encounterOhio State Harding Hospital09-18-2024 Telephone encounter Note * Telephone Encounter - Paul Kendrick MD - 12/18/2023 9:51 AM EDT written [facility] Telephone encounter Note* Telephone Encounter - [...] send it to Kristin Tejeda at the [facility], fax # [phone]. Pt states she is due to have an injection today. [facility]08-27-20[facility] Telephone encounter Note* Telephone Encounter - [...] Hunter LPN November 26, 2023 10:25 AM [facility]08-27-2024 Miscellaneous Notes* Telephone Encounter - Marry [...] 26, 2023 10:25 AM documented in this encounterOhio State Harding Hospital08-27-2024 Telephone encounter Note * Telephone Encounter [...] Hunter LPN November 26, 2023 10:24 AM [facility]08-27-2024 Miscellaneous Notes* Telephone Encounter - Marry [...] 26, 2023 10:24 AM documented in this encounterOhio State Harding Hospital07-29-2024 Telephone encounter Note * Telephone Encounter [...] The last office visit in the department: [facility] with Diomedes 05/16/23 Does the patient have a future office visit with this provider/department: No Requested Prescriptions Pending Prescriptions Disp Refills gabapentin (NEURONTIN) 300 mg capsule 42 capsule 0 Sig: Take 3 capsules by mouth daily at bedtime for 180 days. Isabel Rodriges LPN October 28, 2023 9:57 AM [facility]07-29-2024 Miscellaneous Notes* Telephone Encounter - Isabel [...] The last office visit in the department: [facility] with Diomedes 05/16/23 Does the patient have a future office visit with this provider/department: No Requested Prescriptions Pending Prescriptions Disp Refills gabapentin (NEURONTIN) 300 mg capsule 42 capsule 0 Sig: Take 3 capsules by mouth daily at bedtime for 180 days. Isabel Rodriges LPN October 28, 2023 9:57 AM documented in this encounterOhio State Harding Hospital04-17-2024 Miscellaneous Notes* Telephone Encounter - Karen Parr RN - 07/17/2023 12:00 PM EDT Luma from [facility] calls and states that they had shipped out patient medication for gabapentin and cyanocobalamin injection in the mail on 07/12/2023. Patient has not received medication yet and tracking for medication through [facility] does not show medication is in transit. Luma asking if provider c an send in cyanocobalamin and 14 day dose of gabapentin to [facility]'s pharmacy. Patient has to get injection done on Saturday. Karen Parr RN documented in this encounterOhio State Harding Hospital02-28-2024 Miscellaneous Notes* Telephone Encounter - Evelin [...] Patient plans to call number. Evelin Lund APRN.AERIAL LINEMAN documented in this encounterOhio State Harding Hospital02-27-2024 Miscellaneous Notes* Addendum Note - Marry Hunter LPN - 05/28/2023 2:24 PM ESTAddended by: MARRY HUNTER on: 05/28/2023 02:24 PM Modules accepted: Orders * Telephone Encounter - Marry Hunter LPN - 05/28/2023 2:19 PM EST Spoke to patient. Patient needs this sent to [facility] instead of [facility]. Please review and advise. documented in this encounterOhio State Harding Hospital02-27-2024 Miscellaneous Notes* Telephone Encounter - Bonnie Brantley LPN - 05/28/2023 12:00 PM EST Images from the original note were not included. Too early to fill. Pt was notified via [employer]. Justyna Brantley LPN * Telephone Encounter - Bonnie Brantley LPN - 05/28/2023 11:51 AM EST Pt sends MyChart stating she may need a PA for Trazodone. (Pt may also be trying to fill too soon as she picked up a month supply 05/07/23.) PA sent on [employer] ([id number]) Justyna Brantley LPN documented in this encounterOhio State Harding Hospital02-16-2024 History of Present illness Narrative* Evelin Lund, KIRTI.AERIAL LINEMAN - 05/17/2023 1:17 PM EST Import/Export Administrator offered: Patient declines. Citlali Beckwith is a [...] L2 SAB0 IAB0 Ectopic0 Multiple0 Live Births2 Project/Production Manager Imaging History LMP: 05/10/2021, IUD Age at Menarche: Age at First : Age at Menopause: Project/Production Manager Imaging History Comments: Sexual Activity: Yes; No partner [...] Hypertension Maternal Grandfather CHF Heart Maternal Grandfather [place] Cancer Paternal Grandmother throat cancer Stroke Paternal [...] FOR 90 DAYS, THEN AFTER intercourse Acidophilus-Pectin, [place]lake 25 million cell -100 mg tab Take [...] external genitalia normal, normal Bartholin's glands, urethra, Pence's glands, no vulvar lesions, no cervical lesions, [...] Level: 4 - Moderate documented in this encounterOhio State Harding Hospital02-15-2024 History of Present illness Narrative* Cassius Selby PA-C - 05/16/2023 2:20 PM EST MyChart Zoom Video Visit was used for evaluation of this patient. Location of patient: [place] Patient was offered a virtual/telemedicine appointment in [...] visit. Either the patient or their legal outside dealer sales representative has been informed of the risks and benefits of -- and alternatives to -- treatment through a remote evaluation andconsents to proceed with the evaluation remotely. 2:15 PM 37 year old female with c/o med refills Gerd without esophagitis (primary encounter diagnosis) Current medication: Pantoprazole DR 40mg daily AC Acidophilus-Pectin, Southlake 25 million cell Current symptoms: none. Last [...] Hypertension Maternal Grandfather CHF Heart Maternal Grandfather [place] Cancer Paternal Grandmother throat cancer Stroke Paternal [...] FOR 90 DAYS, THEN AFTER intercourse Acidophilus-Pectin, [place]lake 25 million cell -100 mg tab Take [...] 1 capsule by mouth once daily. 30 [id number] Cholecalciferol, Vitamin D3, 25 mcg (1,000 unit) cap Take 1 capsule by mouth once daily. [id number] (PROTONIX) 40 mg tablet Take [...] needed. Cassius Selby PA-C documented in this encounterOhio State Harding Hospital02-14-2024 History of Present illness Narrative* Radha [...] and BV. She has been using Monistat [id number], but has not been helping with her [...] FOR 90 DAYS, THEN AFTER intercourse Acidophilus-Pectin, [place]lake 25 million cell -100 mg tab Take [...] Hypertension Maternal Grandfather CHF Heart Maternal Grandfather [place] Cancer Paternal Grandmother throat cancer Stroke Paternal [...] nursing note reviewed. Exam conducted with a lan/wan engineer present. Constitutional: General: She is not in [...] intercourse until symptoms are resolved. -Follow-up with direct of real estate if pain with intercourse continues. Diagnosis and treatment plan were discussed and questions were answered to the patient's satisfaction. Pt acknowledged understanding of concepts and follow up plan. Specific signs and symptoms that would indicate the need for higher level of care were discussed in detail warranting prompt ER evaluation. MARCI Garza documented in this encounterOhio State Harding Hospital02-06-2024 Miscellaneous Notes* Telephone Encounter - Marry [...] you. Marry Hunter LPN. documented in this encounterOhio State Harding Hospital09-18-2023 Miscellaneous Notes* Telephone Encounter - Isabel [...] 04/03/23 Isabel Rodriges LPN documented in this encounterOhio State Harding Hospital08-30-2023 Miscellaneous Notes* Telephone Encounter - Antonio [...] mg. Patient reports that she went to picker tender helper medication at pharmacy on Saturday and they [...] advise, Karen Parr, RN documented in this encounterOhio State Harding Hospital08-17-2023 Miscellaneous Notes* Telephone Encounter - Yani Sutton Ma - 11/15/2022 10:48 AM EDT See pt message. Can you write letter and upload into pt chart for her to give to Wellness Nurse. Rxhas already been sent into local pharmacy. Update pt via [employer] this was already sent into [facility]. Yani Sutton Ma documented in this encounterOhio State Harding Hospital08-07-2023 Miscellaneous Notes* Telephone Encounter - Isabel [...] patient. Isabel Rodriges LPN documented in this encounterOhio State Harding Hospital07-05-2023 History of Present illness Narrative* Paul [...] Hypertension Maternal Grandfather CHF Heart Maternal Grandfather [place] Cancer Paternal Grandmother throat cancer Stroke Paternal [...] GEL Paul Kendrick MD documented in this encounterOhio State Harding Hospital05-10-2023 History of Present illness Narrative* Addis Mendez LPN - 08/08/2022 2:22 PM EDT Patient presents for B-12 injection. Denies any problems at this time. Patient instructed on any SEof medication, verbalized understanding and agreed to proceed with treatment. Tolerated injection well. Addis Mendez LPN documented in this encounterOhio State Harding Hospital04-10-2023 History of Present illness Narrative* Addis Mendez LPN - 07/09/2022 2:29 PM EDT Patient presents for B-12 injection. Denies any problems at this time. Patient instructed on any SEof medication, verbalized understanding and agreed to proceed with treatment. Tolerated injection well. Addis Mendez LPN documented in this encounterOhio State Harding Hospital04-03-2023 Miscellaneous Notes* Telephone Encounter - Mercedez Ojeda LPN - 07/02/2022 12:54 PM EDT Patient phones requesting refills as follows: Requested Prescriptions Pending Prescriptions Disp Refills gabapentin (NEURONTIN) 300 mg capsule 90 capsule 2 Sig: Take 3 capsules by mouth daily at bedtime for 90 days. [facility]-04/04/22 Labs-05/03/22 NOV-10/03/22 Please review and advise. Mercedez Ojeda LPN documented in this encounterOhio State Harding Hospital03-10-2023 History of Present illness Narrative* Addis Mendez LPN - 06/08/2022 2:21 PM EST Patient presents for B-12 injection. Denies any problems at this time. Patient instructed on any SEof medication, verbalized understanding and agreed to proceed with treatment. Tolerated injection well. Addis Mendez LPN documented in this encounterOhio State Harding Hospital03-09-2023 Miscellaneous Notes* Telephone Encounter - Tomasa [...] Floragen. Tomasa Alarcon APRN.CNM documented in this encounterOhio State Harding Hospital03-07-2023 History of Present illness Narrative* Tomasa [...] L2 SAB0 IAB0 Ectopic0 Multiple0 Live Births2 Project/Production Manager Imaging History LMP: 05/10/2021, IUD Age at Menarche: Age at First : Age at Menopause: Project/Production Manager Imaging History Comments: Sexual Activity: Yes; No partner [...] Hypertension Maternal Grandfather CHF Heart Maternal Grandfather [place] Cancer Paternal Grandmother throat cancer Stroke Paternal [...] external genitalia normal, normal Bartholin's glands, urethra, Pence's glands, no vulvar lesions, no cervical lesions, [...] care Tomasa Alarcon APRN.CNM documented in this encounterOhio [facility] History of Present illness Narrative* Addis Mendez LPN - 05/11/2022 2:25 PM EST Patient presents for B-12 injection. Denies any problems at this time. Patient instructed on any SEof medication, verbalized understanding and agreed to proceed with treatment. Tolerated injection well. Addis Mendez LPN documented in this encounterOhio [facility]ing [facility]01-26-2023 Miscellaneous Notes* Telephone Encounter - Meche [...] At thattime she d/c'd the Rx at [facility]. Then when vit D lab came back down, Diomedes, advised her take the vit D once a week. Will need provider to send new Rx to [facility] for this. documented in this encounterOhio [facility]ing Hospital01-24-2023 Miscellaneous Notes* Telephone Encounter - Liliana [...] labs in two weeks. documented in this encounterOhio [facility]ing [facility]01-10-2023 History of Present illness Narrative* Addis Mendez LPN - 04/10/2022 1:19 PM EST Patient presents for B-12 injection. Denies any problems at this time. Patient instructed on any SEof medication, verbalized understanding and agreed to proceed with treatment. Tolerated injection well. Addis Mendez LPN documented in this encounterOhio [facility]01-09-2023 Miscellaneous Notes* Telephone Encounter - Cassius Selby PA-C - 04/09/2022 4:26 AM EST See [facility] chart message Diomedes Selby PA-C documented in this encounterOhio [facility]01-04-2023 History of Present illness Narrative* Paul [...] Abs Lymph 1.00 - 4.00 k/uL 1.63 [place]% % 9.7 Abs [place] <0.87 k/uL 0.48 [place]% % 2.4 Abs [...] Hypertension Maternal Grandfather CHF Heart Maternal Grandfather [place] Cancer Paternal Grandmother throat cancer Stroke Paternal [...] BILIRUBIN FRACTION Paul Kendrick documented in this encounterOhio [facility]ing [facility]12-08-2022 History of Present illness Narrative* Addis Mendez LPN - 03/08/2022 1:18 PM EST Patient presents for B-12 injection. Denies any problems at this time. Patient instructed on any SEof medication, verbalized understanding and agreed to proceed with treatment. Tolerated injection well. Addis Mendez LPN documented in this encounterOhio [facility] Hospital11-14-2022 Miscellaneous Notes* Telephone Encounter - Asia Miller MD - 02/12/2022 7:16 AM EST See result note Flagyl sent in documented in this encounterOhio State [facility]ing Hospital11-11-2022 History of Present illness Narrative* Asia Miller MD - 02/09/2022 10:45 AM EST Import/Export Administrator offered: Patient declines. Citlali Beckwith is a [...] external genitalia normal, normal Bartholin's glands, urethra, Pence's glands, no vulvar lesions, no cervical lesions, [...] Level: 3 - Low documented in this encounterOhio [facility]ing Hospital11-10-2022 History of Present illness Narrative* Addis Mendez LPN - 02/08/2022 1:18 PM EST Patient presents for B-12 injection. Denies any problems at this time. Patient instructed on any SEof medication, verbalized understanding and agreed to proceed with treatment. Tolerated injection well. Addis Mendez LPN documented in this encounterOhio [facility]ing Hospital11-07-2022 Miscellaneous Notes* Telephone Encounter - Antonio Ogden LPN - 02/05/2022 1:50 PM EST Patient phones requesting refills as follows: Requested Prescriptions Pending Prescriptions Disp Refills gabapentin (NEURONTIN) 300 mg capsule 90 capsule 2 Sig: Take 3 capsules by mouth daily at bedtime for 90 days. [place] 10/03/21 04/04/22 Please review and advise. Antonio Ogden LPN documented in this [facility]10-07-2022 Miscellaneous Notes* Telephone Encounter - Antonio Ogden LPN - 01/05/2022 8:51 AM EDT Patient phones requesting refills as follows: Requested Prescriptions Pending Prescriptions Disp Refills gabapentin (NEURONTIN) 300 mg capsule 90 capsule 2 Sig: Take 3 capsules by mouth daily at bedtime for 90 days. CL[place]ENCE 10/03/21 04/04/22 Please review and advise. Antonio Ogden LPN documented in this [facility]09-30-2022 Miscellaneous Notes* Telephone Encounter - Cassius Selby PA-C - 2021 11:26 AM EDT The following approved medication requests have been transmitted electronically. Requested Prescriptions Signed Prescriptions Disp Refills traZODone (DESYREL) 100 mg tablet 30 tablet 5 Sig: Take 1 tablet by mouth daily at bedtime. Cassius Selby PA-C documented in this [facility]09-09-2022 History of Present illness Narrative* Addis Mendez LPN - 12/08/2021 1:27 PM EDT Patient presents for B-12 injection. Denies any problems at this time. Patient instructed on any SEof medication, verbalized understanding and agreed to proceed with treatment. Tolerated injection well. Addis Mendez LPN documented in this [facility]09-07-2022 Miscellaneous Notes* Telephone Encounter - Addis Mendez LPN - 12/06/2021 8:36 AM EDT Patient scheduled for nurse visit 12/08/21 to receive B-[address] new administrationorder at this time. Addis Mendez LPN documented in this encounterOhio [facility]ing Hospital08-10-2022 History of Present illness Narrative* Addis Mendez LPN - 11/08/2021 1:15 PM EDT Patient presents for B-12 injection. Denies any problems at this time. Patient instructed on any SEof medication, verbalized understanding and agreed to proceed with treatment. Tolerated injection well. Addis Mendez LPN documented in this encounterOhio State [facility]ing Hospital07-19-2022 Miscellaneous Notes* Telephone Encounter - Meche [...] Prior Authorization has been completed online at [employer] for RETINA-A gel, will await response. [id number] Please keep encounter open until final decision has been received and documented from insurance company. Meche Walsh MA documented in this encounterOhio State [facility]ing Hospital07-12-2022 Miscellaneous Notes* Telephone Encounter - Cassius Selby PA-C - 10/10/2021 6:24 PM EDT The following approved medication requests have been transmitted electronically. Signed Prescriptions Disp Refills traZODone (DESYREL) 50 mg tablet 135 tablet 1 Sig: Take 1.5 tablets by mouth daily at bedtime. OSCAR: No Cassius Selby PA-C documented in this encounterOhio State [facility]ing Hospital07-08-2022 History of Present illness Narrative* Addis Mendez LPN - 10/06/2021 1:25 PM EDT Patient presents for B-12 injection. Denies any problems at this time. Patient instructed on any SEof medication, verbalized understanding and agreed to proceed with treatment. Tolerated injection well. Addis Mendez LPN documented in this encounterOhio State [facility]ing Hospital07-06-2022 Miscellaneous Notes* Telephone Encounter - Isabel [...] Prior Authorization has been completed online at [employer] for Tretinoin Microsphere Gel, will await response. [id number] Please keep encounter open until final decision has been received and documented from insurance company. 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 LDLs picker tender helper cholesterol from the liver and deliver it [...] learn more? National Heart, Lung, and Blood [employer] Health Information Center Attention: Web Site [address] [address] [place] [address] TTY e-mail: For all correspondence, please indicate that your request results from your visit to the NHLBI website, www.nhlbi.nih.gov/health. Copyright 9477-6603 [facility]. All rights reserved. This information is provided by the [facility] and is not intended to replace the medical advice of your doctor or health care provider. Please consult your health care provider for advice about a specific medical condition. For additional written health information, please contact the HealthInformation Center at the [facility] or toll-free extension [phone]. This document was last reviewed on: 2003 [...] drink alcohol, drink in moderation. Follow the [place] [employer] recommendations when you eat out. Read the nutrition facts label and ingredients list. Adapted from the [place] [employer]: www.americanheart.org Guidelines for low cholesterol, [...] and chicken; processed meats; luncheon meats (salami, [facility]); frankfurters and fast food hambergers (they are [...] milk. Avoid sweet rolls, doughnuts, breakfast pastries (Yoruba), and sweetened packaged cereals (the added sugar [...] all-trans retinoic acid): Patient drug information Access [employer] for additional drug information, tools, and databases. Copyright 3556-9183 [employer]. All rights reserved. Contributor Disclosures (For additional information see Topical tretinoin (topical all-trans retinoic acid): Drug information and see Topical tretinoin (topical all-trans retinoic acid): Pediatric drug information) You must carefully read the Consumer Information Use and Disclaimer below in order to understand and correctly use this information. Brand Names: [place] Altreno; Atralin; Avita; Refissa; Oakesdale; [place]dale Pump; Retin-A; Retin-A Micro; Retin-A Micro Pump [...] much, and when it happened. Last Reviewed [id number] Consumer Information Use and Disclaimer This generalized [...] or approved for treating a specific patient. [employer]. and its affiliatesdisclaim any warranty or liability relating to this information or the use thereof. The use of thisinformation is governed by the Terms of Use, available at https://www.Maimaibao.com/en/know/adcrtsld-lwpulhpqfjgdk-ymlpu. 2021 [employer]. and its affiliates and/or licensors. All rights reserved. Use of UpToDate is subject to the Terms of Use. Topic 09295 Version 173.0 Close The use of UpToDate is subject to the Terms of Use. documented in this encounterOhio State [facility]ing Hospital07-05-2022 History of Present illness Narrative* Cassius [...] Abs Lymph 1.00 - 4.00 k/uL 2.00 [place]% % 9.3 Abs [place] <0.87 k/uL 0.48 Eosin% % 2.7 Abs [...] Hypertension Maternal Grandfather CHF Heart Maternal Grandfather [place] Cancer Paternal Grandmother throat cancer Stroke Paternal [...] HYDROXY Cassius Selby PA-C documented in this encounterOhio State [facility]ing Hospital06-10-2022 History of Present illness Narrative* Addis Mendez LPN - 09/08/2021 1:11 PM EDT Patient presents for B-12 injection. Denies any problems at this time. Patient instructed on any SEof medication, verbalized understanding and agreed to proceed with treatment. Tolerated injection well. Addis Mendez LPN documented in this encounterOhio State [facility]ing Hospital05-31-2022 Miscellaneous Notes* Telephone Encounter - Nicole Duff Ma - 08/29/2021 12:27 PM EDT [place] 04/05/21 NOV 10/03/21 documented in this encounterOhio State [facility]ing Hospital05-10-2022 History of Present illness Narrative* Addis Mendez LPN - 08/08/2021 1:26 PM EDT Patient presents for B-12 injection. Denies any problems at this time. Patient instructed on any SEof medication, verbalized understanding and agreed to proceed with treatment. Tolerated injection well. Addis Mendez LPN documented in this encounterOhio State [facility]ing Hospital05-02-2022 History of Present illness Narrative* Tomasa [...] external genitalia normal, normal Bartholin's glands, urethra, Pence's glands, no vulvar lesions, no cervical lesions, [...] which included preparing to see the patient, [id number] patient care, completing clinical documentation, obtaining and/or reviewing separately obtained history, performing a medically appropriate examination, counseling and educating the pat ient/family/caregiver and ordering medications, tests, or procedures. documented in this encounterOhio State [facility]ing Hospital04-15-2022 Miscellaneous Notes* Telephone Encounter - Di [...] patient. Milan Hernandez MD documented in this encounterOhio State Harding Hospital04-13-2022 History of Present illness Narrative* Milan Hernandez MD - 07/12/2021 5:30 PM EDT Hematology and Medical Oncology PATIENT NAME: Citlali Beckwith. CLINIC NO: [id number]. ATTENDING PHYSICIAN: Milan Hernandez MD. DATE OF [...] humidity & tubing. Lifetime supplies. FLOR G47.33npi [id number] CPAP Initiate Auto PAP @ 5-20 cm [...] Hypertension Maternal Grandfather CHF Heart Maternal Grandfather [place] Cancer Paternal Grandmother throat cancer Stroke Paternal [...] Abs Lymph 1.00 - 4.00 k/uL 2.00 [place]% % 9.3 Abs [place] <0.87 k/uL 0.48 Eosin% % 2.7 Abs [...] Cc: Dr. Paul Kendrick documented in this encounterOhio State Harding Hospital04-13-2022 History of Present illness Narrative* Asia [...] Level: 3 - Low documented in this encounterOhio State Harding Hospital04-11-2022 History of Present illness Narrative* Addis Mendez LPN - 07/10/2021 1:35 PM EDT Patient presents for B-12 injection. Denies any problems at this time. Patient instructed on any SEof medication, verbalized understanding and agreed to proceed with treatment. Tolerated injection well. Addis Mendez LPN documented in this encounterOhio State Harding Hospital04-11-2022 Miscellaneous Notes* Telephone Encounter - Honey [...] 90 capsules 2 refills documented in this encounterOhio State Harding Hospital03-13-2021 History of Present illness Narrative* Sherrie [...] 11, 2020 9:19 AM documented in this encounterOhio State Harding Hospital05-31-2017 History of Past illness Narrative* Problem [...] Routine gynecological examination 06/30/2009 09/13/2015 Overview: [facility], [facility] [place] Morbid obesity 06/30/2009 09/13/2015 Insomnia 06/30/2009 09/13/2015 Attention deficit disorder 07/14/200708/29 Overview: Controlled substance agreement-03/19/2015 Adjustment disorder with depressed mood 07/14/19 08 08/29/2016 Seborrheic dermatitis, unspecified 06/12/2007 08/29/2016 Unspecified adjustment reaction 12/19/2006 07/14/2007 documented as of this encounter (statuses as of 07/10/2021) [facility] of Past illness Narrative* Problem [...] Still pos trich. Rx tinizadole. Kimberly Nova, JESCIA March 13, 2016 Neg. trich. Carlie Campbell [...] gynecological examination 06/30/2009 09/13/2015 Overview: [facility] [place], [facility] [place] Morbid obesity 06/30/2009 09/13/2015 Insomnia 06/30/2009 09/13/2015 Attention deficit disorder 07/14/200708/29 Overview: Controlled substance agreement-03/19/2015 Adjustment disorder with depressed mood 07/14/19 08 08/29/2016 Seborrheic dermatitis, unspecified 06/12/2007 08/29/2016 Unspecified adjustment reaction 12/19/2006 07/14/2007 documented as of this encounter (statuses as of 07/10/2021) [facility] of [facility] illness Narrative* Problem [...] examination 06/30/2009 09/13/2015 [facility]: [facility] [place] Morbid obesity 06/30/2009 09/13/2015 Insomnia 06/30/2009 09/13/2015 Attention deficit disorder 07/14/200708/29 Overview: Controlled substance agreement-03/19/2015 Adjustment disorder with depressed mood 07/14/19 08 08/29/2016 Seborrheic dermatitis, unspecified 06/12/2007 08/29/2016 Unspecified adjustment reaction 12/19/2006 07/14/2007 documented as of this encounter (statuses as of 07/12/2021) [facility] Narrative* Problem [...] Still pos trich. Rx tinizadole. 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 trich. Carlie Campbell [...] of this encounter (statuses as of 07/13/2021) [facility] of [facility] Narrative* Problem [...] examination 06/30/2009 09/13/2015 [facility]: [facility] Em Morbid obesity 06/30/2009 09/13/2015 Insomnia 06/30/2009 09/13/2015 Attention deficit disorder 07/14/200708/29 Overview: Controlled substance agreement-03/19/2015 Adjustment disorder with depressed mood 07/14/19 08 08/29/2016 Seborrheic dermatitis, unspecified 06/12/2007 08/29/2016 Unspecified adjustment reaction 12/19/2006 07/14/2007 documented as of this encounter (statuses as of 07/14/2021) [facility] Narrative* Problem [...] examination 06/30/2009 09/13/2015 [facility]: [facility] [place] Morbid obesity 06/30/2009 09/13/2015 Insomnia 06/30/2009 09/13/2015 Attention deficit disorder 07/14/200708/29 Overview: Controlled substance agreement-03/19/2015 Adjustment disorder with depressed mood 07/14/19 08 08/29/2016 Seborrheic dermatitis, unspecified 06/12/2007 08/29/2016 Unspecified adjustment reaction 12/19/2006 07/14/2007 documented as of this encounter (statuses as of 07/31/2021) [facility] Narrative* Problem [...] Routine gynecological examination 06/30/2009 09/13/2015 Overview: [facility], [facility] Em Morbid obesity 06/30/2009 09/13/2015 Insomnia 06/30/2009 09/13/2015 Attention deficit disorder 07/14/200708/29 Overview: Controlled substance agreement-03/19/2015 Adjustment disorder with depressed mood 07/14/19 08 08/29/2016 Seborrheic dermatitis, unspecified 06/12/2007 08/29/2016 Unspecified adjustment reaction 12/19/2006 07/14/2007 documented as of this encounter (statuses as of 08/08/2021) [facility] Narrative* Problem [...] gynecological examination 06/30/2009 09/13/2015 Overview: [facility] [place], [facility] [place] Morbid obesity 06/30/2009 09/13/2015 Insomnia 06/30/2009 09/13/2015 Attention deficit disorder 07/14/200708/29 Overview: Controlled substance agreement-03/19/2015 Adjustment disorder with depressed mood 07/14/19 08 08/29/2016 Seborrheic dermatitis, unspecified 06/12/2007 08/29/2016 Unspecified adjustment reaction 12/19/2006 07/14/2007 documented as of this encounter (statuses as of 08/29/2021) [facility] Narrative* Problem [...] Routine gynecological examination 06/30/2009 09/13/2015 Overview: [facility], [facility] [place] Morbid obesity 06/30/2009 09/13/2015 Insomnia 06/30/2009 09/13/2015 Attention deficit disorder 07/14/200708/29 Overview: Controlled substance agreement-03/19/2015 Adjustment disorder with depressed mood 07/14/19 08 08/29/2016 Seborrheic dermatitis, unspecified 06/12/2007 08/29/2016 Unspecified adjustment reaction 12/19/2006 07/14/2007 documented as of this encounter (statuses as of 09/08/2021) [facility] Narrative* Problem [...] Still pos trich. Rx tinizadole. 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 trich. Carlie Campbell [...] 06/30/2009 09/13/2015 Overview: [facility] [place] Morbid obesity 06/30/2009 09/13/2015 Insomnia 06/30/2009 09/13/2015 Attention deficit disorder 07/14/200708/29 Overview: Controlled substance agreement-03/19/2015 Adjustment disorder with depressed mood 07/14/1908/29/2016 Seborrheic dermatitis, unspecified 06/12/2007 08/29/2016 Unspecified adjustment reaction 12/19/2006 07/14/2007 documented as of this encounter (statuses as of 10/04/2021) [facility] Narrative* Problem [...] examination 06/30/2009 09/13/2015 Overview: [facility], [facility] [place] Morbid obesity 06/30/2009 09/13/2015 Insomnia 06/30/2009 09/13/2015 Attention deficit disorder 07/14/200708/29 Overview: Controlled substance agreement-03/19/2015 Adjustment disorder with depressed mood 07/14/19 08 08/29/2016 Seborrheic dermatitis, unspecified 06/12/2007 08/29/2016 Unspecified adjustment reaction 12/19/2006 07/14/2007 documented as of this encounter (statuses as of 10/04/2021) [facility] Narrative* Problem [...] Still pos trich. Rx tinizadole. 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 trich. Carlie Campbell [...] examination 06/30/2009 09/13/2015 Overview: [facility] [place] Morbid obesity 06/30/2009 09/13/2015 Insomnia 06/30/2009 09/13/2015 Attention deficit disorder 07/14/200708/29 Overview: Controlled substance agreement-03/19/2015 Adjustment disorder with depressed mood 07/14/1908/29/2016 Seborrheic dermatitis, unspecified 06/12/2007 08/29/2016 Unspecified adjustment reaction 12/19/2006 07/14/2007 documented as of this encounter (statuses as of 10/06/2021) [facility] Narrative* Problem [...] Routine gynecological examination 06/30/2009 09/13/2015 Overview: [facility], [facility] [place] Morbid obesity 06/30/2009 09/13/2015 Insomnia 06/30/2009 09/13/2015 Attention deficit disorder 07/14/200708/29 Overview: Controlled substance agreement-03/19/2015 Adjustment disorder with depressed mood 07/14/19 08 08/29/2016 Seborrheic dermatitis, unspecified 06/12/2007 08/29/2016 Unspecified adjustment reaction 12/19/2006 07/14/2007 documented as of this encounter (statuses as of 10/06/2021) [facility] Narrative* Problem [...] Routine gynecological examination 06/30/2009 09/13/2015 Overview: [facility], [facility] [place] Morbid obesity 06/30/2009 09/13/2015 Insomnia 06/30/2009 09/13/2015 Attention deficit disorder 07/14/200708/29 Overview: Controlled substance agreement-03/19/2015 Adjustment disorder with depressed mood 07/14/19 08 08/29/2016 Seborrheic dermatitis, unspecified 06/12/2007 08/29/2016 Unspecified adjustment reaction 12/19/2006 07/14/2007 documented as of this encounter (statuses as of 10/10/2021) [facility] Narrative* Problem [...] Routine gynecological examination 06/30/2009 09/13/2015 Overview: [facility], [facility] [place] Morbid obesity 06/30/2009 09/13/2015 Insomnia 06/30/2009 09/13/2015 Attention deficit disorder 07/14/200708/29 Overview: Controlled substance agreement-03/19/2015 Adjustment disorder with depressed mood 07/14/19 08 08/29/2016 Seborrheic dermatitis, unspecified 06/12/2007 08/29/2016 Unspecified adjustment reaction 12/19/2006 07/14/2007 documented as of this encounter (statuses as of 10/17/2021) [facility] Narrative* Problem [...] Still pos trich. Rx tinizadole. 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 trich. Carlie Campbell [...] of this encounter (statuses as of 11/08/2021) [facility] Narrative* Problem [...] examination 06/30/2009 09/13/2015 Overview: [facility] [place] Morbid obesity 06/30/2009 09/13/2015 Insomnia 06/30/2009 09/13/2015 Attention deficit disorder 07/14/200708/29 Overview: Controlled substance agreement-03/19/2015 Adjustment disorder with depressed mood 07/14/19 08 08/29/2016 Seborrheic dermatitis, unspecified 06/12/2007 08/29/2016 Unspecified adjustment reaction 12/19/2006 07/14/2007 documented as of this encounter (statuses as of 12/06/2021) [facility] Narrative* Problem [...] examination 06/30/2009 09/13/2015 Overview: [facility], [facility] [place] Morbid obesity 06/30/2009 09/13/2015 Insomnia 06/30/2009 09/13/2015 Attention deficit disorder 07/14/200708/29 Overview: Controlled substance agreement-03/19/2015 Adjustment disorder with depressed mood 07/14/19 08 08/29/2016 Seborrheic dermatitis, unspecified 06/12/2007 08/29/2016 Unspecified adjustment reaction 12/19/2006 07/14/2007 documented as of this encounter (statuses as of 12/08/2021) [facility]2017 History of Past illness Narrative* Problem [...] Routine gynecological examination 06/30/2009 09/13/2015 Overview: [facility], [facility] [place] Morbid obesity 06/30/2009 09/13/2015 Insomnia 06/30/2009 09/13/2015 Attention deficit disorder 07/14/200708/29 Overview: Controlled substance agreement-03/19/2015 Adjustment disorder with depressed mood 07/14/19 08 08/29/2016 Seborrheic dermatitis, unspecified 06/12/2007 08/29/2016 Unspecified adjustment reaction 12/19/2006 07/14/2007 documented as of this encounter (statuses as of 2021) [facility]2017 History of Past illness Narrative* Problem [...] gynecological examination 06/30/2009 09/13/2015 Overview: [facility] [place], [facility] [place] Morbid obesity 06/30/2009 09/13/2015 Insomnia 06/30/2009 09/13/2015 Attention deficit disorder 07/14/200708/29 Overview: Controlled substance agreement-03/19/2015 Adjustment disorder with depressed mood 07/14/19 08 08/29/2016 Seborrheic dermatitis, unspecified 06/12/2007 08/29/2016 Unspecified adjustment reaction 12/19/2006 07/14/2007 documented as of this encounter (statuses as of 01/05/2022) [facility] History of Past illness Narrative* Problem [...] Guerra Routine gynecological examination 06/30/2009 09/13/2015 Overview: [facility], [facility] [place] Morbid obesity 06/30/2009 09/13/2015 Insomnia 06/30/2009 09/13/2015 Attention deficit disorder 07/14/200708/29 Overview: Controlled substance agreement-03/19/2015 Adjustment disorder with depressed mood 07/14/19 08 08/29/2016 Seborrheic dermatitis, unspecified 06/12/2007 08/29/2016 Unspecified adjustment reaction 12/19/2006 07/14/2007 documented as of this encounter (statuses as of 02/05/2022) [facility] History of Past illness Narrative* Problem [...] of this encounter (statuses as of 02/08/2022) [facility] History of Past illness Narrative* Problem [...] Still pos trich. Rx tinizadole. 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 trich. Carlie Campbell [...] examination 06/30/2009 09/13/2015 [facility]: [facility] [place] Morbid obesity 06/30/2009 09/13/2015 Insomnia 06/30/2009 09/13/2015 Attention deficit disorder 07/14/200708/29 Overview: Controlled substance agreement-03/19/2015 Adjustment disorder with depressed mood 07/14/1908/29/2016 Seborrheic dermatitis, unspecified 06/12/2007 08/29/2016 Unspecified adjustment reaction 12/19/2006 07/14/2007 documented as of this encounter (statuses as of 02/09/2022) [facility] History of Past illness Narrative* Problem [...] Still pos trich. Rx tinizadole. 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 trich. Carlie Campbell [...] examination 06/30/2009 09/13/2015 [facility]: [facility], [facility] [place] Morbid obesity 06/30/2009 09/13/2015 Insomnia 06/30/2009 09/13/2015 Attention deficit disorder 07/14/200708/29 Overview: Controlled substance agreement-03/19/2015 Adjustment disorder with depressed mood 07/14/19 08 08/29/2016 Seborrheic dermatitis, unspecified 06/12/2007 08/29/2016 Unspecified adjustment reaction 12/19/2006 07/14/2007 documented as of this encounter (statuses as of 02/12/2022) [facility] History of Past illness Narrative* Problem [...] gynecological examination 06/30/2009 09/13/2015 Overview: [facility] [place], [facility] [place] Morbid obesity 06/30/2009 09/13/2015 Insomnia 06/30/2009 09/13/2015 Attention deficit disorder 07/14/200708/29 Overview: Controlled substance agreement-03/19/2015 Adjustment disorder with depressed mood 07/14/19 08 08/29/2016 Seborrheic dermatitis, unspecified 06/12/2007 08/29/2016 Unspecified adjustment reaction 12/19/2006 07/14/2007 documented as of this encounter (statuses as of 03/08/2022) [facility] History of Past illness Narrative* Problem [...] examination 06/30/2009 09/13/2015 [facility]: [facility], [facility] [place] Morbid obesity 06/30/2009 09/13/2015 Insomnia 06/30/2009 09/13/2015 Attention deficit disorder 07/14/200708/29 Overview: Controlled substance agreement-03/19/2015 Adjustment disorder with depressed mood 07/14/19 08 08/29/2016 Seborrheic dermatitis, unspecified 06/12/2007 08/29/2016 Unspecified adjustment reaction 12/19/2006 07/14/2007 documented as of this encounter (statuses as of 04/06/2022) [facility] History of Past illness Narrative* Problem [...] Routine gynecological examination 06/30/2009 09/13/2015 Overview: [facility], [place] Morbid obesity 06/30/2009 09/13/2015 Insomnia 06/30/2009 09/13/2015 Attention deficit disorder 07/14/200708/29 Overview: Controlled substance agreement-03/19/2015 Adjustment disorder with depressed mood 07/14/19 08 08/29/2016 Seborrheic dermatitis, unspecified 06/12/2007 08/29/2016 Unspecified adjustment reaction 12/19/2006 07/14/2007 documented as of this encounter (statuses as of 04/09/2022) [facility] History of Past illness Narrative* Problem [...] of this encounter (statuses as of 04/10/2022) [facility] History of Past illness Narrative* Problem [...] examination 06/30/2009 09/13/2015 Overview: [facility], [facility] [place] Morbid obesity 06/30/2009 09/13/2015 Insomnia 06/30/2009 09/13/2015 Attention deficit disorder 07/14/200708/29 Overview: Controlled substance agreement-03/19/2015 Adjustment disorder with depressed mood 07/14/19 08 08/29/2016 Seborrheic dermatitis, unspecified 06/12/2007 08/29/2016 Unspecified adjustment reaction 12/19/2006 07/14/2007 documented as of this encounter (statuses as of 04/24/2022) [facility] History of Past illness Narrative* Problem [...] Still pos trich. Rx tinizadole. 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 trich. Carlie Campbell [...] examination 06/30/2009 09/13/2015 Overview: [facility], [facility] [place] Morbid obesity 06/30/2009 09/13/2015 Insomnia 06/30/2009 09/13/2015 Attention deficit disorder 07/14/200708/29 Overview: Controlled substance agreement-03/19/2015 Adjustment disorder with depressed mood 07/14/19 08 08/29/2016 Seborrheic dermatitis, unspecified 06/12/2007 08/29/2016 Unspecified adjustment reaction 12/19/2006 07/14/2007 documented as of this encounter (statuses as of 04/26/2022) [facility] History of Past illness Narrative* Problem [...] examination 06/30/2009 09/13/2015 Overview: [facility], [facility] [place] Morbid obesity 06/30/2009 09/13/2015 Insomnia 06/30/2009 09/13/2015 Attention deficit disorder 07/14/200708/29 Overview: Controlled substance agreement-03/19/2015 Adjustment disorder with depressed mood 07/14/19 08 08/29/2016 Seborrheic dermatitis, unspecified 06/12/2007 08/29/2016 Unspecified adjustment reaction 12/19/2006 07/14/2007 documented as of this encounter (statuses as of 05/11/2022) [facility] History of Past illness Narrative* Problem [...] examination 06/30/2009 09/13/2015 Overview: [facility], [facility] [place] Morbid obesity 06/30/2009 09/13/2015 Insomnia 06/30/2009 09/13/2015 Attention deficit disorder 07/14/200708/29 Overview: Controlled substance agreement-03/19/2015 Adjustment disorder with depressed mood 07/14/19 08 08/29/2016 Seborrheic dermatitis, unspecified 06/12/2007 08/29/2016 Unspecified adjustment reaction 12/19/2006 07/14/2007 documented as of this encounter (statuses as of 06/06/2022) [facility] History of Past illness Narrative* Problem [...] Guerra Routine gynecological examination 06/30/2009 09/13/2015 Overview: [facility], [facility] [place] Morbid obesity 06/30/2009 09/13/2015 Insomnia 06/30/2009 09/13/2015 Attention deficit disorder 07/14/200708/29 Overview: Controlled substance agreement-03/19/2015 Adjustment disorder with depressed mood 07/14/19 08 08/29/2016 Seborrheic dermatitis, unspecified 06/12/2007 08/29/2016 Unspecified adjustment reaction 12/19/2006 07/14/2007 documented as of this encounter (statuses as of 06/07/2022) [facility] History of Past illness Narrative* Problem [...] examination 06/30/2009 09/13/2015 Overview: [facility], [facility] [place] Morbid obesity 06/30/2009 09/13/2015 Insomnia 06/30/2009 09/13/2015 Attention deficit disorder 07/14/200708/29 Overview: Controlled substance agreement-03/19/2015 Adjustment disorder with depressed mood 07/14/19 08 08/29/2016 Seborrheic dermatitis, unspecified 06/12/2007 08/29/2016 Unspecified adjustment reaction 12/19/2006 07/14/2007 documented as of this encounter (statuses as of 06/08/2022) [facility] History of Past illness Narrative* Problem [...] Still pos trich. Rx tinizadole. 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 trich. Carlie Campbell [...] examination 06/30/2009 09/13/2015 Overview: [facility], [facility] [place] Morbid obesity 06/30/2009 09/13/2015 Insomnia 06/30/2009 09/13/2015 Attention deficit disorder 07/14/200708/29 Overview: Controlled substance agreement-03/19/2015 Adjustment disorder with depressed mood 07/14/19 08/29/2016 Seborrheic dermatitis, unspecified 06/12/2007 08/29/2016 Unspecified adjustment reaction 12/19/2006 07/14/2007 documented as of this encounter (statuses as of 07/04/2022) [facility] History of Past illness Narrative* Problem [...] Routine gynecological examination 06/30/2009 09/13/2015 Overview: [facility], [facility] [place] Morbid obesity 06/30/2009 09/13/2015 Insomnia 06/30/2009 09/13/2015 Attention deficit disorder 07/14/200708/29 Overview: Controlled substance agreement-03/19/2015 Adjustment disorder with depressed mood 07/14/19 08 08/29/2016 Seborrheic dermatitis, unspecified 06/12/2007 08/29/2016 Unspecified adjustment reaction 12/19/2006 07/14/2007 documented as of this encounter (statuses as of 07/04/2022) [facility] History of Past illness Narrative* Problem [...] examination 06/30/2009 09/13/2015 Overview: [facility], [facility] [place] Morbid obesity 06/30/2009 09/13/2015 Insomnia 06/30/2009 09/13/2015 Attention deficit disorder 07/14/200708/29 Overview: Controlled substance agreement-03/19/2015 Adjustment disorder with depressed mood 07/14/19 08 08/29/2016 Seborrheic dermatitis, unspecified 06/12/2007 08/29/2016 Unspecified adjustment reaction 12/19/2006 07/14/2007 documented as of this encounter (statuses as of 07/10/2022) [facility] History of Past illness Narrative* Problem [...] Still pos trich. Rx tinizadole. 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 trich. Carlie Campbell [...] Routine gynecological examination 06/30/2009 09/13/2015 Overview: [facility], [facility] [place] Morbid obesity 06/30/2009 09/13/2015 Insomnia 06/30/2009 09/13/2015 Attention deficit disorder 07/14/200708/29 Overview: Controlled substance agreement-03/19/2015 Adjustment disorder with depressed mood 07/14/19 08 08/29/2016 Seborrheic dermatitis, unspecified 06/12/2007 08/29/2016 Unspecified adjustment reaction 12/19/2006 07/14/2007 documented as of this encounter (statuses as of 08/08/2022) [facility] History of Past illness Narrative* Problem [...] Guerra Routine gynecological examination 06/30/2009 09/13/2015 Overview: [facility], [facility] [place] Morbid obesity 06/30/2009 09/13/2015 Insomnia 06/30/2009 09/13/2015 Attention deficit disorder 07/14/200708/29 Overview: Controlled substance agreement-03/19/2015 Adjustment disorder with depressed mood 07/14/19 08 08/29/2016 Seborrheic dermatitis, unspecified 06/12/2007 08/29/2016 Unspecified adjustment reaction 12/19/2006 07/14/2007 documented as of this encounter (statuses as of 10/03/2022) [facility] History of Past illness Narrative* Problem [...] examination 06/30/2009 09/13/2015 Overview: [facility], [facility] [place] Morbid obesity 06/30/2009 09/13/2015 Insomnia 06/30/2009 09/13/2015 Attention deficit disorder 07/14/2007 0 08/29/2016 Overview: Controlled substance agreement-03/19/2015 Adjustment disorder with depressed mood 07/14/2007 08/29/2016 Seborrheic dermatitis, unspecified 06/12/2007 08/29/2016 Unspecified adjustment reaction 12/19/2006 07/14/2007 documented as of this encounter (statuses as of 11/05/2022) [facility] History of Past illness Narrative* Problem [...] Still pos trich. Rx tinizadole. 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 trich. Carlie Campbell [...] examination 06/30/2009 09/13/2015 Overview: [facility], [facility] [place] Morbid obesity 06/30/2009 09/13/2015 Insomnia 06/30/2009 09/13/2015 Attention deficit disorder 07/14/2007 0 08/29/2016 Overview: Controlled substance agreement-03/19/2015 Adjustment disorder with depressed mood 07/14/2007 08/29/2016 Seborrheic dermatitis, unspecified 06/12/2007 08/29/2016 Unspecified adjustment reaction 12/19/2006 07/14/2007 documented as of this encounter (statuses as of 11/15/2022) [facility] History of Past illness Narrative* Problem [...] Routine gynecological examination 06/30/2009 09/13/2015 Overview: [facility], [facility] [place] Morbid obesity 06/30/2009 09/13/2015 Insomnia 06/30/2009 09/13/2015 Attention deficit disorder 07/14/2007 0 08/29/2016 Overview: Controlled substance agreement-03/19/2015 Adjustment disorder with depressed mood 07/14/2007 08/29/2016 Seborrheic dermatitis, unspecified 06/12/2007 08/29/2016 Unspecified adjustment reaction 12/19/2006 07/14/2007 documented as of this encounter (statuses as of 11/28/2022) [facility] History of Past illness Narrative* Problem [...] examination 06/30/2009 09/13/2015 Overview: [facility], [facility] [place] Morbid obesity 06/30/2009 09/13/2015 Insomnia 06/30/2009 09/13/2015 Attention deficit disorder 07/14/2007 0 08/29/2016 Overview: Controlled substance agreement-03/19/2015 Adjustment disorder with depressed mood 07/14/2007 08/29/2016 Seborrheic dermatitis, unspecified 06/12/2007 08/29/2016 Unspecified adjustment reaction 12/19/2006 07/14/2007 documented as of this encounter (statuses as of 12/18/2022) [facility] History of Past illness Narrative* Problem [...] Routine gynecological examination 06/30/2009 09/13/2015 Overview: [facility], [facility] [place] Morbid obesity 06/30/2009 09/13/2015 Insomnia 06/30/2009 09/13/2015 Attention deficit disorder 07/14/2007 0 08/29/2016 Overview: Controlled substance agreement-03/19/2015 Adjustment disorder with depressed mood 07/14/2007 08/29/2016 Seborrheic dermatitis, unspecified 06/12/2007 08/29/2016 Unspecified adjustment reaction 12/19/2006 07/14/2007 documented as of this encounter (statuses as of 05/07/2023) [facility] of Past illness Narrative* Problem [...] of this encounter (statuses as of 05/15/2023) [facility] of Past illness Narrative* Problem [...] Routine gynecological examination 06/30/2009 09/13/2015 Overview: [facility], [facility] [place] Morbid obesity 06/30/2009 09/13/2015 Insomnia 06/30/2009 09/13/2015 Attention deficit disorder 07/14/2007 0 08/29/2016 Overview: Controlled substance agreement-03/19/2015 Adjustment disorder with depressed mood 07/14/2007 08/29/2016 Seborrheic dermatitis, unspecified 06/12/2007 08/29/2016 Unspecified adjustment reaction 12/19/2006 07/14/2007 documented as of this encounter (statuses as of 05/17/2023) [facility] of Past illness Narrative* Problem [...] examination 06/30/2009 09/13/2015 Overview: [facility], [facility] [place] Morbid obesity 06/30/2009 09/13/2015 Insomnia 06/30/2009 09/13/2015 Attention deficit disorder 07/14/2007 0 08/29/2016 Overview: Controlled substance agreement-03/19/2015 Adjustment disorder with depressed mood 07/14/2007 08/29/2016 Seborrheic dermatitis, unspecified 06/12/2007 08/29/2016 Unspecified adjustment reaction 12/19/2006 07/14/2007 documented as of this encounter (statuses as of 05/19/2023) [facility] of Past illness Narrative* Problem [...] examination 06/30/2009 09/13/2015 Overview: [facility], [facility] [place] Morbid obesity 06/30/2009 09/13/2015 Insomnia 06/30/2009 09/13/2015 Attention deficit disorder 07/14/2007 0 08/29/2016 Overview: Controlled substance agreement-03/19/2015 Adjustment disorder with depressed mood 07/14/2007 08/29/2016 Seborrheic dermatitis, unspecified 06/12/2007 08/29/2016 Unspecified adjustment reaction 12/19/2006 07/14/2007 documented as of this encounter (statuses as of 05/23/2023) [facility] History of Past illness Narrative* Problem [...] Still pos trich. Rx tinizadole. 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 trich. Carlie Campbell [...] gynecological examination 06/30/2009 09/13/2015 Overview: [facility] [place], [facility] [place] Morbid obesity 06/30/2009 09/13/2015 Insomnia 06/30/2009 09/13/2015 Attention deficit disorder 07/14/2007 0 08/29/2016 Overview: Controlled substance agreement-03/19/2015 Adjustment disorder with depressed mood 07/14/2007 08/29/2016 Seborrheic dermatitis, unspecified 06/12/2007 08/29/2016 Unspecified adjustment reaction 12/19/2006 07/14/2007 documented as of this encounter (statuses as of 05/29/2023) [facility] of Past illness Narrative* Problem [...] examination 06/30/2009 09/13/2015 Overview: [facility], [facility] [place] Morbid obesity 06/30/2009 09/13/2015 Insomnia 06/30/2009 09/13/2015 Attention deficit disorder 07/14/2007 0 08/29/2016 Overview: Controlled substance agreement-03/19/2015 Adjustment disorder with depressed mood 07/14/2007 08/29/2016 Seborrheic dermatitis, unspecified 06/12/2007 08/29/2016 Unspecified adjustment reaction 12/19/2006 07/14/2007 documented as of this encounter (statuses as of 05/29/2023) [facility] of Past illness Narrative* Problem [...] examination 06/30/2009 09/13/2015 Overview: [facility], [facility] [place] Morbid obesity 06/30/2009 09/13/2015 Insomnia 06/30/2009 09/13/2015 Attention deficit disorder 07/14/2007 0 08/29/2016 Overview: Controlled substance agreement-03/19/2015 Adjustment disorder with depressed mood 07/14/2007 08/29/2016 Seborrheic dermatitis, unspecified 06/12/2007 08/29/2016 Unspecified adjustment reaction 12/19/2006 07/14/2007 documented as of this encounter (statuses as of 05/30/2023) [facility] of Past illness Narrative* Problem [...] examination 06/30/2009 09/13/2015 Overview: [facility] [place] Morbid obesity 06/30/2009 09/13/2015 Insomnia 06/30/2009 09/13/2015 Attention deficit disorder 07/14/2007 0 08/29/2016 Overview: Controlled substance agreement-03/19/2015 Adjustment disorder with depressed mood 07/14/2007 08/29/2016 Seborrheic dermatitis, unspecified 06/12/2007 08/29/2016 Unspecified adjustment reaction 12/19/2006 07/14/2007 documented as of this encounter (statuses as of 07/01/2023) [facility] of Past illness Narrative* Problem [...] examination 06/30/2009 09/13/2015 Overview: [facility] [place] Morbid obesity 06/30/2009 09/13/2015 Insomnia 06/30/2009 09/13/2015 Attention deficit disorder 07/14/2007 0 08/29/2016 Overview: Controlled substance agreement-03/19/2015 Adjustment disorder with depressed mood 07/14/2007 08/29/2016 Seborrheic dermatitis, unspecified 06/12/2007 08/29/2016 Unspecified adjustment reaction 12/19/2006 07/14/2007 documented as of this encounter (statuses as of 07/18/2023) [facility]No [facility] information availableW[facility] Work [facility]: [facility]* Diagnosis Onset Date Resolution Status Hydronephrosis acute Kidney calculi acute Ureteral calculus acute [facility] Work Phone: evaluation note* Diagnosis RLS (restless legs syndrome) Restless legs syndrome (RLS) documented in this encounter [facility] note* Diagnosis Other vitamin B12 deficiency anemia- Primary documented in this encounter [facility] note* Diagnosis Vaginal discharge- Primary Leukorrhea, not specified as infective IUD (intrauterine device) in place Presence of intrauterine contraceptive device [facility] this encounter [facility]* Diagnosis History of Angelika-en-Y gastric bypass- Primary Bariatric surgery status Vitamin D deficiency Unspecified vitamin D deficiency Folic acid deficiency (non anemic) Other B-complex deficiencies Anemia due to vitamin B12 deficiency, unspecified B12 deficiency type documented in this encounter [facility]* Diagnosis Vitamin D deficiency- Primary Unspecified vitamin D deficiency History of Angelika-en-Y gastric bypass Bariatric surgery status documented in this encounter [facility] note* Diagnosis Vaginal discharge- Primary Leukorrhea, not specified as infective Vaginal pruritus Pruritus of genital organs documented in this encounter [facility]* Diagnosis Other vitamin B12 deficiency anemia- Primary History of gastric bypass Bariatric surgery status documented in this encounter [facility] note* Diagnosis Chronic insomnia Insomnia, unspecified documented in this encounter [facility] note* Diagnosis Other vitamin B12 deficiency anemia- Primary History of gastric bypass Bariatric surgery status documented in this encounter [facility] note* Diagnosis Onset Date Resolution Status Ureteral calculus resolved [facility] Work Phone: evaluation note* Diagnosis GERD without esophagitis- Primary Esophageal reflux RLS (restless legs syndrome) Restless legs syndrome (RLS) Gastroenteritis Other and unspecified noninfectious gastroenteritis and colitis Acne comedone Other acne Chronic insomnia Insomnia, unspecified FLOR (obstructive sleep apnea) Obstructive sleep apnea (adult) (pediatric) Vitamin D deficiency Unspecified vitamin D deficiency documented in this encounter [facility] note* Diagnosis Other vitamin B12 deficiency anemia- Primary History of gastric bypass Bariatric surgery status documented in this encounter [facility] note* Diagnosis Chronic insomnia Insomnia, unspecified documented in this encounter [facility]* Diagnosis Other vitamin B12 deficiency anemia- Primary History of gastric bypass Bariatric surgery status documented in this encounter [facility]* Diagnosis RLS (restless legs syndrome) Restless legs syndrome (RLS) documented in this encounter [facility] note* Diagnosis RLS (restless legs syndrome) Restless legs syndrome (RLS) [facility] Diagnosis Other vitamin B12 deficiency anemia- Primary documented in this encounter [facility] note* Diagnosis Vaginal discharge- Primary Leukorrhea, not specified as infective Vaginal odor Unspecified symptom associated with female genital organs documented in this encounter [facility] note* Diagnosis BV (bacterial vaginosis)- Primary Vaginitis and vulvovaginitis, unspecified [facility]* Diagnosis Seizures (HCC)- Primary Other [...] unspecified, not of documented in this encounter [facility] note* Diagnosis Elevated TSH- Primary Nonspecific abnormal results of thyroid function study documented in this encounter [facility] note* Diagnosis Encounter for gynecological examination (general) (routine) without abnormal findings- Primary Screening for STD (sexually transmitted disease) Screening examination for venereal disease Intrauterine contraceptive device threads lost, initial encounter documented in this encounter [facility] note* Diagnosis Other vitamin B12 deficiency anemia- Primary History of gastric bypass Bariatric surgery status [facility] Diagnosis RLS (restless legs syndrome) Restless legs syndrome (RLS) documented [facility]* Diagnosis Other vitamin B12 deficiency anemia- Primary History of gastric bypass Bariatric surgery status [facility] Diagnosis RLS (restless legs syndrome)- Primary Restless legs syndrome (RLS) Seizures (HCC) Other convulsions FLOR (obstructive sleep apnea) Obstructive sleep apnea (adult) (pediatric) Other vitamin B12 deficiency anemia Folic acid deficiency (non anemic) Other B-complex deficiencies History of Angelika-en-Y gastric bypass Bariatric surgery status Vitamin D deficiency Unspecified vitamin D deficiency Acne comedone Other acne [facility] Diagnosis RLS (restless legs syndrome) Restless legs syndrome (RLS) [facility] Diagnosis RLS (restless legs syndrome) Restless legs syndrome (RLS) [facility] Diagnosis Vaginal discharge- Primary Leukorrhea, not specified as infective [facility] Diagnosis Vaginal pain- Primary Unspecified symptom associated with female genital organs Vaginal discharge Leukorrhea, not specified as infective Cervical cancer screening Screening for malignant neoplasm of the cervix Special screening examination for human papillomavirus (HPV) [facility] Diagnosis GERD without esophagitis- [...] B12 deficiency anemia [facility] Diagnosis 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 Cervical high risk human papillomavirus (HPV) DNA test positive [facility] Diagnosis RLS (restless legs syndrome) Restless legs syndrome (RLS) Other vitamin B12 deficiency anemia [facility] Diagnosis Other vitamin B12 deficiency anemia RLS (restless legs syndrome) Restless legs syndrome (RLS) [facility] Diagnosis RLS (restless legs syndrome) Restless legs syndrome (RLS) [facility] Diagnosis Other vitamin B12 deficiency anemia [facility] Diagnosis Pre-op evaluation- Primary Preoperative [...] B12 deficiency anemia [facility] Diagnosis Pre-op evaluation- Primary [...] legs syndrome (RLS) [facility] Diagnosis Pre-op evaluation- Primary [...] hand and wrist [facility] Diagnosis Pre-op evaluation- Primary [...] Bariatric surgery status [facility] Diagnosis Pre-op evaluation- Primary [...] or radiculitis, unspecified [facility] Diagnosis Pre-op evaluation- Primary [...] of intractable epilepsy [facility] Diagnosis Pre-op evaluation- Primary [...] legs syndrome (RLS) [facility] Diagnosis Pre-op evaluation- Primary [...] Other convulsions Carpal tunnel syndrome, unspecified laterality LFOR (obstructive sleep apnea) Obstructive sleep apnea (adult) [...] ischemic heart disease documented [facility]* Diagnosis Pre-op evaluation- Primary Preoperative [...] deficiency anemia, unspecified [facility] Diagnosis Pre-op evaluation- Primary [...] deficiency anemia, unspecified documented in this encounter [facility] for referral (narrative)* Diagnostic Procedure Only (Routine) - Pending Review Specialty Diagnoses / Procedures Referred By Isaac ma Referred To Contact US IMAGING Diagnoses Intrauterine contraceptive device threads lost, initial encounter Procedures US FEMALE PELVIS TRANSVAG US TRANSVAGINAL Tomasa Alarcon APRN.CNM [address] [place] [address] Us Imaging Referral ID Status Reason Start Date Expiration Date Visits Requested Visits Authorized [id number] Pending Review Auto-Generat ed Referral 06/05/2022 07/05/2023 1 1 [facility] for referral (narrative)* Outpatient Procedure (Routine) - Pending Review Specialty Diagnoses / Procedures Referred By Isaac ma Referred To Contact [facility] Diagnoses ASCUS with positive high risk HPV cervical Procedures COLPOSCOPY COLPOSCOPY CERVIX BX CERVIX & ENDOCRV Evelin Pratt APRN.CNP [address] [place] [address] [facility] [address] [place] [address] Referral ID Status Reason Start Date Expiration Date Visits Requested Visits Authorized [id number] Pending Review Auto-Generat ed Referral 05/29/2023 05/28/2024 1 1 [facility] for referral (narrative)No reason for referral information availableWOhio State [facility] Work Phone: Summary Purpose Family History Relationship Condition Age at Onset Recorded Date/T corrine Not Specified Malignant neoplasm Unknown Advance Directives Advance Directive Response Recorded Date/ Time Advance Directives No April 23, 2016 3:00pm Living Will No June 22, 2021 11:03am Power of Charge Entry Clerk No June 22 11:03am Advance Directive Response Recorded Date/ Time Advance Directives No April 23, 2016 3:00pm Living Will No June 22, 2021 6:42pm Power of Charge Entry Clerk No June 22 6:42pm Documents on File Type Date 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 Advance Directive(s) 03/11/2020 8:21 AM Advance Directive(s) 02/09/2020 1:29 PM Advance Directive(s) 04/08/2018 6:25 AM Advance Directive Response Recorded Date/ Time Advance Directives No April 23, 2016 3:00pm Living Will No September 07, 2021 2 :12pm Power of Charge Entry Clerk No September 07, 2021 2:12pm Advance Directive Response Recorded Date/ Time Advance Directives No April 23, 2016 2:00pm Living Will No September 07, 2021 1 :12pm Power of Charge Entry Clerk No September 07, 2021 1:12pm Advance Directive Response Recorded Date/ Time Advance Directives No April 28, 2024 1:10pm Living Will No March 03 10:13am Power of Charge Entry Clerk No March 03, 2024 10:13am Advance Directive Response Recorded Date/ Time Advance Directives No April 28, 2024 1:10pm Procedure Findings Note HNO ID: [id number] Author: Reid jackson (Kellee) Álvaro Service: ? 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 Indications and Patient Condition Preoxygenated: yes Patient [...] February 11, 2020 TIME: 7:56 AM CSN: [id number] Chief Complaint and Reason for Visit Chief [...] Contact Diagnoses Acne Paul Ambrosio MD [address] [place] [address] Referral ID Status Reason Start Date Expiration Date V isits Requested Visits Authorized [id number] Authorized 10/03/2022 10/03/2025 1 1 Specialty Diagnoses / Procedures Referred By Contac t Referred To Contact Pain Management Diagnoses Lumbar radiculopathy Procedures CONSULT TO PAIN MGT OFFICE/OUTPATIENT NEW HIGH MDM 60 MINUTES Paul Kendrick MD [address] [place] [address] Referral ID Status Reason Start Date Expiration Date Visits Requested Visits Authorized [id number] Authorized PCP Requested Referral 03/03/2024 03/03/2025 1 1 Additional Source Comments INFORMATION SOURCE (unrecogn ized section and content) DATE CREATED AUTHOR 04/08/2018 [facility] DATE CREATED AUTHOR AUTHOR'S ORGANIZ ATION 01/04/2019 [facility] DATE CREATED AUTHOR AUTHOR'S ORGANIZ ATION 03/16/2020 [facility] DATE CREATED AUTHOR AUTHOR'S ORGANIZ ATION 09/29/2024 [facility] DATE CREATED AUTHOR AUTHOR'S ORGANIZ ATION 09/29/2024 [facility] Goals (unrecognized section and content) Goals [...] or prosecute any alcohol or drug abuse patient.[facility] the event this information is protected by the Federal Confidentiality of Alcohol and Drug Abuse Patient Records regulations: The Federal rules restrict any use of the information to criminally investigate or prosecute any alcohol or drug abuse patient.[facility] the event this information is protected by the Federal Confidentiality of Alcohol and Drug Abuse Patient Records regulations: The Federal rules restrict any use of the information to criminally investigate or prosecute any alcohol or drug abuse patient.[facility] the event this information is protected by the Federal Confidentiality of Alcohol and Drug Abuse Patient Records regulations: The Federal rules restrict any use of the information to criminally investigate or prosecute any alcohol or drug abuse patient.[facility] the event this information is protected by the Federal Confidentiality of Alcohol and Drug Abuse Patient Records regulations: The Federal rules restrict any use of the information to criminally investigate or prosecute any alcohol or drug abuse patient.[facility] Hospital[facility] the event this information is protected by the Federal Confidentiality of Alcohol and Drug Abuse Patient Records regulations: The Federal rules restrict any use of the information to criminally investigate or prosecute any alcohol or drug abuse patient.[facility] Hospital[facility] the event this information is protected by the Federal Confidentiality of Alcohol and Drug Abuse Patient Records regulations: The Federal rules restrict any use of the information to criminally investigate or prosecute any alcohol or drug abuse patient.[facility] Hospital[facility] the event this information is protected by the Federal Confidentiality of Alcohol and Drug Abuse Patient Records regulations: The Federal rules restrict any use of the information to criminally investigate or prosecute any alcohol or drug abuse patient.[facility] the event this information is protected by the Federal Confidentiality of Alcohol and Drug Abuse Patient Records regulations: The Federal rules restrict any use of the information to criminally investigate or prosecute any alcohol or drug abuse patient.[facility] HospitalIn the event this information is protected by the Federal Confidentiality of Alcohol and Drug Abuse Patient Records regulations: The Federal rules restrict any use of the information to criminally investigate or prosecute any alcohol or drug abuse patient.[facility] Hospital[facility] the event this information is protected by the Federal Confidentiality of Alcohol and Drug Abuse Patient Records regulations: The Federal rules restrict any use of the information to criminally investigate or prosecute any alcohol or drug abuse patient.[facility] Hospital[facility] the event this information is protected by the Federal Confidentiality of Alcohol and Drug Abuse Patient Records regulations: The Federal rules restrict any use of the information to criminally investigate or prosecute any alcohol or drug abuse patient.[facility] Hospital[facility] the event this information is protected by the Federal Confidentiality of Alcohol and Drug Abuse Patient Records regulations: The Federal rules restrict any use of the information to criminally investigate or prosecute any alcohol or drug abuse patient.[facility] the event this information is protected by the Federal Confidentiality of Alcohol and Drug Abuse Patient Records regulations: The Federal rules restrict any use of the information to criminally investigate or prosecute any alcohol or drug abuse patient.[facility] Hospital[facility] the event this information is protected by the Federal Confidentiality of Alcohol and Drug Abuse Patient Records regulations: The Federal rules restrict any use of the information to criminally investigate or prosecute any alcohol or drug abuse patient.[facility] HospitalIn the event this information is protected by the Federal Confidentiality of Alcohol and Drug Abuse Patient Records regulations: The Federal rules restrict any use of the information to criminally investigate or prosecute any alcohol or drug abuse patient.[facility] HospitalIn the event this information is protected by the Federal Confidentiality of Alcohol and Drug Abuse Patient Records regulations: The Federal rules restrict any use of the information to criminally investigate or prosecute any alcohol or drug abuse patient.[facility] HospitalIn the event this information is protected by the Federal Confidentiality of Alcohol and Drug Abuse Patient Records regulations: The Federal rules restrict any use of the information to criminally investigate or prosecute any alcohol or drug abuse patient.[facility] HospitalIn the event this information is protected by the Federal Confidentiality of Alcohol and Drug Abuse Patient Records regulations: The Federal rules restrict any use of the information to criminally investigate or prosecute any alcohol or drug abuse patient.[facility] HospitalIn the event this information is protected by the Federal Confidentiality of Alcohol and Drug Abuse Patient Records regulations: The Federal rules restrict any use of the information to criminally investigate or prosecute any alcohol or drug abuse patient.[facility] HospitalIn the event this information is protected by the Federal Confidentiality of Alcohol and Drug Abuse Patient Records regulations: The Federal rules restrict any use of the information to criminally investigate or prosecute any alcohol or drug abuse patient.[facility] HospitalIn the event this information is protected by the Federal Confidentiality of Alcohol and Drug Abuse Patient Records regulations: The Federal rules restrict any use of the information to criminally investigate or prosecute any alcohol or drug abuse patient.[facility] HospitalIn the event this information is protected by the Federal Confidentiality of Alcohol and Drug Abuse Patient Records regulations: The Federal rules restrict any use of the information to criminally investigate or prosecute any alcohol or drug abuse patient.[facility] HospitalIn the event this information is protected by the Federal Confidentiality of Alcohol and Drug Abuse Patient Records regulations: The Federal rules restrict any use of the information to criminally investigate or prosecute any alcohol or drug abuse patient.[facility] HospitalIn the event this information is protected by the Federal Confidentiality of Alcohol and Drug Abuse Patient Records regulations: The Federal rules restrict any use of the information to criminally investigate or prosecute any alcohol or drug abuse patient.[facility] HospitalIn the event this information is protected by the Federal Confidentiality of Alcohol and Drug Abuse Patient Records regulations: The Federal rules restrict any use of the information to criminally investigate or prosecute any alcohol or drug abuse patient.[facility] HospitalIn the event this information is protected by the Federal Confidentiality of Alcohol and Drug Abuse Patient Records regulations: The Federal rules restrict any use of the information to criminally investigate or prosecute any alcohol or drug abuse patient.[facility] HospitalIn the event this information is protected by the Federal Confidentiality of Alcohol and Drug Abuse Patient Records regulations: The Federal rules restrict any use of the information to criminally investigate or prosecute any alcohol or drug abuse patient.[facility] HospitalIn the event this information is protected by the Federal Confidentiality of Alcohol and Drug Abuse Patient Records regulations: The Federal rules restrict any use of the information to criminally investigate or prosecute any alcohol or drug abuse patient.[facility] HospitalIn the event this information is protected by the Federal Confidentiality of Alcohol and Drug Abuse Patient Records regulations: The Federal rules restrict any use of the information to criminally investigate or prosecute any alcohol or drug abuse patient.[facility] HospitalIn the event this information is protected by the Federal Confidentiality of Alcohol and Drug Abuse Patient Records regulations: The Federal rules restrict any use of the information to criminally investigate or prosecute any alcohol or drug abuse patient.[facility] HospitalIn the event this information is protected by the Federal Confidentiality of Alcohol and Drug Abuse Patient Records regulations: The Federal rules restrict any use of the information to criminally investigate or prosecute any alcohol or drug abuse patient.[facility] HospitalIn the event this information is protected by the Federal Confidentiality of Alcohol and Drug Abuse Patient Records regulations: The Federal rules restrict any use of the information to criminally investigate or prosecute any alcohol or drug abuse patient.[facility] HospitalIn the event this information is protected by the Federal Confidentiality of Alcohol and Drug Abuse Patient Records regulations: The Federal rules restrict any use of the information to criminally investigate or prosecute any alcohol or drug abuse patient.[facility] HospitalIn the event this information is protected by the Federal Confidentiality of Alcohol and Drug Abuse Patient Records regulations: The Federal rules restrict any use of the information to criminally investigate or prosecute any alcohol or drug abuse patient.[facility] HospitalIn the event this information is protected by the Federal Confidentiality of Alcohol and Drug Abuse Patient Records regulations: The Federal rules restrict any use of the information to criminally investigate or prosecute any alcohol or drug abuse patient.[facility] HospitalIn the event this information is protected by the Federal Confidentiality of Alcohol and Drug Abuse Patient Records regulations: The Federal rules restrict any use of the information to criminally investigate or prosecute any alcohol or drug abuse patient.[facility] HospitalIn the event this information is protected by the Federal Confidentiality of Alcohol and Drug Abuse Patient Records regulations: The Federal rules restrict any use of the information to criminally investigate or prosecute any alcohol or drug abuse patient.[facility] HospitalIn the event this information is protected by the Federal Confidentiality of Alcohol and Drug Abuse Patient Records regulations: The Federal rules restrict any use of the information to criminally investigate or prosecute any alcohol or drug abuse patient.[facility]In the event this information is protected by the Federal Confidentiality of Alcohol and Drug Abuse Patient Records regulations: The Federal rules restrict any use of the information to criminally investigate or prosecute any alcohol or drug abuse patient.[facility] HospitalIn the event this information is protected by the Federal Confidentiality of Alcohol and Drug Abuse Patient Records regulations: The Federal rules restrict any use of the information to criminally investigate or prosecute any alcohol or drug abuse patient.[facility] HospitalIn the event this information is protected by the Federal Confidentiality of Alcohol and Drug Abuse Patient Records regulations: The Federal rules restrict any use of the information to criminally investigate or prosecute any alcohol or drug abuse patient.[facility] HospitalIn the event this information is protected by the Federal Confidentiality of Alcohol and Drug Abuse Patient Records regulations: The Federal rules restrict any use of the information to criminally investigate or prosecute any alcohol or drug abuse patient.[facility] HospitalIn the event this information is protected by the Federal Confidentiality of Alcohol and Drug Abuse Patient Records regulations: The Federal rules restrict any use of the information to criminally investigate or prosecute any alcohol or drug abuse patient.[facility] HospitalIn the event this information is protected by the Federal Confidentiality of Alcohol and Drug Abuse Patient Records regulations: The Federal rules restrict any use of the information to criminally investigate or prosecute any alcohol or drug abuse patient.[facility] HospitalIn the event this information is protected by the Federal Confidentiality of Alcohol and Drug Abuse Patient Records regulations: The Federal rules restrict any use of the information to criminally investigate or prosecute any alcohol or drug abuse patient.[facility] HospitalIn the event this information is protected by the Federal Confidentiality of Alcohol and Drug Abuse Patient Records regulations: The Federal rules restrict any use of the information to criminally investigate or prosecute any alcohol or drug abuse patient.[facility] HospitalIn the event this information is protected by the Federal Confidentiality of Alcohol and Drug Abuse Patient Records regulations: The Federal rules restrict any use of the information to criminally investigate or prosecute any alcohol or drug abuse patient.[facility] HospitalIn the event this information is protected by the Federal Confidentiality of Alcohol and Drug Abuse Patient Records regulations: The Federal rules restrict any use of the information to criminally investigate or prosecute any alcohol or drug abuse patient.[facility] HospitalIn the event this information is protected by the Federal Confidentiality of Alcohol and Drug Abuse Patient Records regulations: The Federal rules restrict any use of the information to criminally investigate or prosecute any alcohol or drug abuse patient.[facility] HospitalIn the event this information is protected by the Federal Confidentiality of Alcohol and Drug Abuse Patient Records regulations: The Federal rules restrict any use of the information to criminally investigate or prosecute any alcohol or drug abuse patient.[facility] HospitalIn the event this information is protected by the Federal Confidentiality of Alcohol and Drug Abuse Patient Records regulations: The Federal rules restrict any use of the information to criminally investigate or prosecute any alcohol or drug abuse patient.[facility] HospitalIn the event this information is protected by the Federal Confidentiality of Alcohol and Drug Abuse Patient Records regulations: The Federal rules restrict any use of the information to criminally investigate or prosecute any alcohol or drug abuse patient.[facility] HospitalIn the event this information is protected by the Federal Confidentiality of Alcohol and Drug Abuse Patient Records regulations: The Federal rules restrict any use of the information to criminally investigate or prosecute any alcohol or drug abuse patient.[facility] HospitalIn the event this information is protected by the Federal Confidentiality of Alcohol and Drug Abuse Patient Records regulations: The Federal rules restrict any use of the information to criminally investigate or prosecute any alcohol or drug abuse patient.[facility] HospitalIn the event this information is protected by the Federal Confidentiality of Alcohol and Drug Abuse Patient Records regulations: The Federal rules restrict any use of the information to criminally investigate or prosecute any alcohol or drug abuse patient.[facility] HospitalIn the event this information is protected by the Federal Confidentiality of Alcohol and Drug Abuse Patient Records regulations: The Federal rules restrict any use of the information to criminally investigate or prosecute any alcohol or drug abuse patient.[facility] HospitalIn the event this information is protected by the Federal Confidentiality of Alcohol and Drug Abuse Patient Records regulations: The Federal rules restrict any use of the information to criminally investigate or prosecute any alcohol or drug abuse patient.[facility] HospitalIn the event this information is protected by the Federal Confidentiality of Alcohol and Drug Abuse Patient Records regulations: The Federal rules restrict any use of the information to criminally investigate or prosecute any alcohol or drug abuse patient.[facility] HospitalIn the event this information is protected by the Federal Confidentiality of Alcohol and Drug Abuse Patient Records regulations: The Federal rules restrict any use of the information to criminally investigate or prosecute any alcohol or drug abuse patient.[facility] HospitalIn the event this information is protected by the Federal Confidentiality of Alcohol and Drug Abuse Patient Records regulations: The Federal rules restrict any use of the information to criminally investigate or prosecute any alcohol or drug abuse patient.[facility] HospitalIn the event this information is protected by the Federal Confidentiality of Alcohol and Drug Abuse Patient Records regulations: The Federal rules restrict any use of the information to criminally investigate or prosecute any alcohol or drug abuse patient.[facility] HospitalIn the event this information is protected by the Federal Confidentiality of Alcohol and Drug Abuse Patient Records regulations: The Federal rules restrict any use of the information to criminally investigate or prosecute any alcohol or drug abuse patient.[facility] HospitalIn the event this information is protected by the Federal Confidentiality of Alcohol and Drug Abuse Patient Records regulations: The Federal rules restrict any use of the information to criminally investigate or prosecute any alcohol or drug abuse patient.[facility] HospitalIn the event this information is protected by the Federal Confidentiality of Alcohol and Drug Abuse Patient Records regulations: The Federal rules restrict any use of the information to criminally investigate or prosecute any alcohol or drug abuse patient.[facility] HospitalIn the event this information is protected by the Federal Confidentiality of Alcohol and Drug Abuse Patient Records regulations: The Federal rules restrict any use of the information to criminally investigate or prosecute any alcohol or drug abuse patient.[facility] HospitalIn the event this information is protected by the Federal Confidentiality of Alcohol and Drug Abuse Patient Records regulations: The Federal rules restrict any use of the information to criminally investigate or prosecute any alcohol or drug abuse patient.[facility] HospitalIn the event this information is protected by the Federal Confidentiality of Alcohol and Drug Abuse Patient Records regulations: The Federal rules restrict any use of the information to criminally investigate or prosecute any alcohol or drug abuse patient.[facility] HospitalIn the event this information is protected by the Federal Confidentiality of Alcohol and Drug Abuse Patient Records regulations: The Federal rules restrict any use of the information to criminally investigate or prosecute any alcohol or drug abuse patient.[facility] HospitalIn the event this information is protected by the Federal Confidentiality of Alcohol and Drug Abuse Patient Records regulations: The Federal rules restrict any use of the information to criminally investigate or prosecute any alcohol or drug abuse patient.[facility] HospitalIn the event this information is protected by the Federal Confidentiality of Alcohol and Drug Abuse Patient Records regulations: The Federal rules restrict any use of the information to criminally investigate or prosecute any alcohol or drug abuse patient.[facility] HospitalIn the event this information is protected by the Federal Confidentiality of Alcohol and Drug Abuse Patient Records regulations: The Federal rules restrict any use of the information to criminally investigate or prosecute any alcohol or drug abuse patient.[facility] HospitalIn the event this information is protected by the Federal Confidentiality of Alcohol and Drug Abuse Patient Records regulations: The Federal rules restrict any use of the information to criminally investigate or prosecute any alcohol or drug abuse patient.[facility] HospitalIn the event this information is protected by the Federal Confidentiality of Alcohol and Drug Abuse Patient Records regulations: The Federal rules restrict any use of the information to criminally investigate or prosecute any alcohol or drug abuse patient.[facility] HospitalIn the event this information is protected by the Federal Confidentiality of Alcohol and Drug Abuse Patient Records regulations: The Federal rules restrict any use of the information to criminally investigate or prosecute any alcohol or drug abuse patient.[facility] Reason for Visit (unrecogniz ed section [...] Care Teams (unrecognized sec tion and content) Senior Control Systems Engineer Relationship Specialty Start Date End Date Paul Kendrick MD [address] [place] [address] PCP - General Family Practice 03/22/15 Senior Control Systems Engineer Relationship Specialty Start Date End Date Paul Kendrick MD [address] [place] [address] [place] [address] PCP - General Family Practice 03/22/15 Senior Control Systems Engineer Relationship Specialty Start Date End Date Paul Kendrick MD [address] [place] [id number] PCP - General Family Practice 03/22/15 Senior Control Systems Engineer Relationship Specialty Start Date End Date Paul Kendrick MD [address] [place] [address] [place] [address] PCP - General Family Practice 03/22/15 Senior Control Systems Engineer Relationship Specialty Start Date End Date Paul Kendrick MD [address] [place] [address] [place] [address] PCP - General Family Practice 03/22/15 Senior Control Systems Engineer Relationship Specialty Start Date End Date Paul Kendrick MD [address] [place] [address] [place] [address] PCP - General Family Practice 03/22/15 Senior Control Systems Engineer Relationship Specialty Start Date End Date Paul Kendrick MD [address] [place] [address] [place] [address] PCP - General Family Practice 03/22/15 Senior Control Systems Engineer Relationship Specialty Start Date End Date Paul Kendrick MD [address] [facility] [place] [address] PCP - General Family Practice 03/22/15 Senior Control Systems Engineer Relationship Specialty Start Date End Date Paul Kendrick MD [address] [facility] [place] [address] PCP - General Family Practice 03/22/15 Senior Control Systems Engineer Relationship Specialty Start Date End Date Paul Kendrick MD [address] [place] [place] [address] PCP - General Family Practice 03/22/15 Senior Control Systems Engineer Relationship Specialty Start Date End Date Paul Kendrick MD [address] [facility] [place] [address] PCP - General Family Medicine 03/22/15 Senior Control Systems Engineer Relationship Specialty Start Date End Date Paul Kendrick MD [address] [facility] [address] PCP - General Family Medicine 03/22/15 Senior Control Systems Engineer Relationship Specialty Start Date End Date Paul Kendrick MD [address] [facility] [place] [address] PCP - General Family Medicine 03/22/15 Senior Control Systems Engineer Relationship Specialty Start Date End Date Paul Kendrick MD [address] [facility] [place] [address] PCP - General Family Medicine 03/22/15 Senior Control Systems Engineer Relationship Specialty Start Date End Date Paul Kendrick MD [address] [facility] [place] [address] PCP - General Family Medicine 03/22/15 Senior Control Systems Engineer Relationship Specialty Start Date End Date Paul Kendrick MD [address] [facility] [place] [address] PCP - General Family Medicine 03/22/15 Senior Control Systems Engineer Relationship Specialty Start Date End Date Paul Kendrick MD [address] [place] [place] [address] PCP - General Family Medicine 03/22/15 Senior Control Systems Engineer Relationship Specialty Start Date End Date Paul Kendrick MD [address] [facility] [place] [address] PCP - General Family Medicine 03/22/15 Team Status: Active Member Role Status Dates Dr. Paul Kendrick MD Family Provider Active Dr. Paul Kendrick MD Primary Care Provider Active Team Status: Inactive Member Role Status Dates Dr. Paul Kendrick MD Primary Care Provider Active Dr. Desirae Steen MD Attending Provider, Brigida nguyen Active Senior Control Systems Engineer Relationship Specialty Start Date End Date Paul Kendrick MD [address] [facility] [place] [address] PCP - General Family Medicine 03/22/15 Senior Control Systems Engineer Relationship Specialty Start Date End Date Paul Kendrick MD [address] [facility] [place] [address] PCP - General Family Medicine 03/22/15 Senior Control Systems Engineer Relationship Specialty Start Date End Date Paul Kendrick MD [address] [facility] [place] [address] PCP - General Family Medicine 03/22/15 Senior Control Systems Engineer Relationship Specialty Start Date End Date Paul Kendrick MD [address] [facility] [place] [address] PCP - General Family Medicine 03/22/15 Senior Control Systems Engineer Relationship Specialty Start Date End Date Paul Kendrick MD [address] [place] [address] PCP - General Family Medicine 03/22/15 Senior Control Systems Engineer Relationship Specialty Start Date End Date Paul Kendrick MD [address] [place] [address] PCP - General Family Medicine 03/22/15 Senior Control Systems Engineer Relationship Specialty Start Date End Date Paul Kendrick MD [address] [place] [address] PCP - General Family Medicine 03/22/15 Senior Control Systems Engineer Relationship Specialty Start Date End Date Paul Kendrick MD [address] [place] [address] PCP - General Family Medicine 03/22/15 Senior Control Systems Engineer Relationship Specialty Start Date End Date Paul Kendrick MD [address] [place] [address] PCP - General Family Medicine 03/22/15 Senior Control Systems Engineer Relationship Specialty Start Date End Date Paul Kendrick MD [address] [place] [address] PCP - General Family Medicine 03/22/15 Senior Control Systems Engineer Relationship Specialty Start Date End Date Paul Kendrick MD [address] [place] [address] PCP - General Family Medicine 03/22/15 Senior Control Systems Engineer Relationship Specialty Start Date End Date Paul Kendrick MD [address] [place] [address] PCP - General Family Medicine 03/22/15 Senior Control Systems Engineer Relationship Specialty Start Date End Date Paul Kendrick MD [address] [place] [address] PCP - General Family Medicine 03/22/15 Senior Control Systems Engineer Relationship Specialty Start Date End Date Paul Kendrick MD [address] [place] [address] PCP - General Family Medicine 03/22/15 Senior Control Systems Engineer Relationship Specialty Start Date End Date Paul Kendrick MD [address] [place] [address] PCP - General Family Medicine 03/22/15 Senior Control Systems Engineer Relationship Specialty Start Date End Date Paul Kendrick MD [address] [place] [address] PCP - General Family Medicine 03/22/15 Senior Control Systems Engineer Relationship Specialty Start Date End Date Paul Kendrick MD [address] [place] [address] PCP - General Family Medicine 03/22/15 Senior Control Systems Engineer Relationship Specialty Start Date End Date Paul Kendrick MD [address] [place] [address] PCP - General Family Medicine 03/22/15 Senior Control Systems Engineer Relationship Specialty Start Date End Date Paul Kendrick MD [address] [place] [address] PCP - General Family Medicine 03/22/15 Senior Control Systems Engineer Relationship Specialty Start Date End Date Paul Kendrick MD [address] [place] [address] PCP - General Family Medicine 03/22/15 Senior Control Systems Engineer Relationship Specialty Start Date End Date Paul Kendrick MD [address] [place] [address] PCP - General Family Medicine 03/22/15 Senior Control Systems Engineer Relationship Specialty Start Date End Date Paul Kendrick MD [address] [facility] [place] [address] PCP - General Family Medicine 03/22/15 Senior Control Systems Engineer Relationship Specialty Start Date End Date Paul Kendrick MD [address] [facility] [address] PCP - General Family Medicine 03/22/15 Senior Control Systems Engineer Relationship Specialty Start Date End Date Paul Kendrick MD [address] [facility] [place] [address] PCP - General Family Medicine 03/22/15 Team [...] May 05, 2024 End: May 05, 2024 Senior Control Systems Engineer Relationship Specialty Start Date End Date Paul Kendrick MD [address] [facility], [place] [address] PCP - General Family Medicine 03/22/15 Adelia Bustillos GROUND SUPPORT EQUIPMENT MECHANIC.AERIAL LINEMAN [address] [facility], [place] [address] [facility] 03/09/24 Marry Paredes GROUND SUPPORT EQUIPMENT MECHANIC.AERIAL LINEMAN [address] [facility] [place] [address] [facility] 03/09/24 Team Status: Inactive Member Role Status Dates Dr. Paul Kendrick MD Primary Care Provider Active Start: September 08, 2024 End: September 08, 2024 Dr. Paul Kendrick MD Referring Provider Active Start: September 08, 2024 End: September 08, 2024 Dr. Barney Rajan MD Attending Provider Active Start: September 08, 2024 End: September 08, 2024 Senior Control Systems Engineer Relationship Specialty Start Date End Date Paul Kendrick MD [address] [facility], [place] [id number] PCP - General Family Medicine 03/22/15 Adelia Bustillos, KIRTI.AERIAL LINEMAN [address] [facility] [place] [address] [employer] Family Medicine 03/09/24 Marry Paredes APRN.[employer]ERIAL LINEMAN [address] [facility] [place] [address] [employer] Developer Family Medicine 03/09/24 Senior Control Systems Engineer Relationship Specialty Start Date End Date Paul Kendrick MD [address] [facility] [place] [address] PCP - General Family Medicine 03/22/15 Adelia Bustillos, GROUND SUPPORT EQUIPMENT MECHANIC.AERIAL LINEMAN [address] [facility] [place] [address] [employer] Developer Family Medicine 03/09/24 aMrry Paredes GROUND SUPPORT EQUIPMENT MECHANIC.AERIAL LINEMAN [address] [facility] [place] [address] [employer] Developer Family Medicine 03/09/24 Senior Control Systems Engineer Relationship Specialty Start Date End Date Paul Kendrick MD [address] [facility] [place] [address] PCP - General Family Medicine 03/22/15 Adelia Bustillos, GROUND SUPPORT EQUIPMENT MECHANIC.AERIAL LINEMAN [address] [facility] [place] [address] [employer] Developer Family Medicine 03/09/24 Marry Paredes APRN.AERIAL LINEMAN [address] [place] [address] [employer] Developer Family Medicine 03/09/24 Senior Control Systems Engineer Relationship Specialty Start Date End Date Paul Kendrick MD [address] [facility] [place], [place] [address] PCP - General Family Medicine 03/22/15 Adelia Bustillos APRN.AERIAL LINEMAN [address] [facility] [place], [place] [address] [employer] Developer Family [facility] 03/09/24 Marry Paredes APRN.AERIAL LINEMAN [address] [facility] [place], [place] [address] [employer] [facility] 03/09/24 Team Status: Active Member Role/Relationship [...] September 23, 2024 End: September 23, 2024 Senior Control Systems Engineer Relationship Specialty Start Date End Date Paul Kendrick MD [address] [facility] [place], [place] [address] PCP - General Family Medicine 03/22/15 Adelia Bustillos APRN.AERIAL LINEMAN [address] [facility] [place], [place] [address] [employer] [facility] 03/09/24 Marry Paredes APRN.AERIAL LINEMAN [address] [facility] [place], [place] [id number] [facility] 03/09/24 Senior Control Systems Engineer Relationship Specialty Start Date End Date Paul Kendrick MD [address] [place], [place] [id number] PCP - General Family Medicine 03/22/15 Adelia Bustillos APRN.AERIAL LINEMAN [address] [place], [place] [id number] [facility] 03/09/24 Marry Paredes APRN.AERIAL LINEMAN [address] [place] [address] [facility] 03/09/24 FOR RECORDS PERTAINING TO PATIENTS WHO [...] BE BASED ON THE PRIMARY CLINICAL RECORDS. [facility]. provides no warranty or guarantee of the accuracy or completeness of information in this document.
[2024-09-30] MEDS: Lactated Ringers 1,000 ML 15 ML IV (05:45)
[2024-09-30] MEDS: Magnesium 1 GM over 15 mins IV (06:31)
--- NOTE | 2024-09-30 06:43 | PCM.PRE.AN2 ---
ASA Classification* ASA Classification ASA Classification: 2 Assessment & Plan Anesthesia* Anesthesia Assessment Anesthesia Assessment: Discussed sedation and/or anesthesia options, risks, benefits, and alternatives with patient/parents/legal guardian/POA. Questions invited. The patient/parents/legal guardian/POA seems to understand and agrees to proceed with anesthesia plan. Reviewed the physical assessment, medical history, allergy history and patient home medications list prior to surgery/procedure/anesthetic and documented any changes. Performed airway and anesthesia risk assessments. Anesthesia Type Anesthesia Type: General History Source History Obtained from:: Patient and Chart Anesthesia Focused Assessment* Temperature: 97.7 F Pulse Rate: 72 Blood Pressure: 118/85 Respiratory Rate: 18 Pulse Ox: 97 Oxygen Delivery Method: Room Air Airway Assessment Mouth opens: >3 cm Mallampati Score: II Teeth Condition: Caps/Crowns (Patient has 1 crown. It is tight.) and Missing (Patient has couple missing teeth. Rest are tight.) Neck Range of motion (ROM): Full ROM Labs Anesthesia Preop lab: CBC WBC 5.8 K/mm3 (4.4-11.0) 09/23/24 14:09/23/24 RBC 4.18 M/mm3 (4.2-5.4) L 09/23/24 14:09/23/24 Hgb 12.4 g/dL (12.0-15.0) 09/23/24 14:09/23/24 Hct 36.7 % (37-47) L 09/23/24 14:09/23/24 Plt Count 240 K/mm3 (150-450) 09/23/24 14:09/23/24 CHEMISTRY Potassium 3.8 mmol/L (3.3-5.1) 09/23/24 14:09/23/24 Sodium 140 mmol/L (133-145) 09/23/24 14:09/23/24 Magnesium 2.1 mg/dL (1.5-2.2) 09/23/24 14:09/23/24 BUN 13 mg/dL (4-19) 09/23/24 14:09/23/24 Creatinine 0.89 mg/dL (0.70-1.20) 09/23/24 14:09/23/24 Glucose 94 mg/dL (70-99) 09/23/24 14:26 09/23/24 POC Glucose 69 mg/dL (74-106) L 09/30/24 05:49 09/30/24 COAG Urine Test Negative Negative 03/03/24 10:55 03/03/24 Pre-Assessment Diagnosis/Proposed Procedure Planned Operative Procedure(s): LEFT LUMBAR DISCECTOMY L5-S1 Anesthesia History 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 When Was Last Pacemaker Check QUESTION #4 FULL TEXT: You/Your Family Experience fever (hyperthermia) with Anesthesia Last Oral Intake Last Oral intake: Last Oral Intake NPO since 03:30 09/30/24 06:23 Meds taken in AM with sips of water? Meds patient instructed to take am of surgery Any additional information?: Yes NPO since: 03:30 (Patient had preop Ensure at 3:30 AM) Meds taken in AM with sips of water?: Yes PONV PONV - gear nicker: PONV - gear nicker Female Yes 09/22/24 08:33 HX of Motion Sickness No 09/22/24 08:33 HX of N/V After Surgery No 09/22/24 08:33 Non-Smoker Yes 09/22/24 08:33 Duration of Surgery greater Yes 09/22/24 08:33 than 60 minutes Number of Risk Factors 3 09/22/24 08:33 PONV Score Moderate Risk 09/22/24 08:33 Height & Weight Height & Weight: Anesthesia: Height & Weight Height 5 ft 5 in 09/30/24 06:23 Weight: 92.9 kg 09/30/24 06:23 Body Mass Index (BMI) 34.0 09/30/24 06:23 Respiratory Assessment Respiratory Assessment - gear nicker: Respiratory Tract Infection Hx - gear nicker Hx Respiratory Tract Infection No 09/22/24 08:33 STOP Sleep Apnea STOP Sleep Apnea - gear nicker: STOP Sleep Apnea - gear nicker Hx Hypertension No 09/22/24 08:33 Hx Sleep Apnea Yes: NONCOMPLIANT 09/22/24 08:33 CPAP Yes 09/22/24 08:33 BIPAP No 09/22/24 08:33 Do you snore loudly (louder than talking or can be heard Do you often feel tired/ fatigued/ sleepy during daytime? Has anyone observed you stop breathing during sleep? STOP Results Positive 09/22/24 08:33 QUESTION #5 FULL TEXT : Do you snore loudly (louder than talking or can be heard through closed doors)? 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 confused, unrespo /Reproduction History /Reproductive History - gear nicker: /Reproductive Hx- gear nicker Hx Now No 09/22/24 08:33 Gestational Age (in weeks): EDC: Hx Hx Para Hx Section SAB No 09/22/24 08:33 Active Medications Active Medications: Current Medications Generic Name Dose Route Start Last Admin Trade Name Freq PRN Reason Stop Dose Admin Acetaminophen 1,000 mg 09/30/24 07:30 09/30/24 06:22 Acetaminophen 500 Mg Tablet PO 09/30/24 07:31 1,000 mg PREOP ONE Administration Cefazolin Sodium 2 gm/ Sodium 110 mls @ 150 mls/hr 09/30/24 07:30 Chloride IV 09/30/24 08:13 INTRAOP ONE Tranexamic Acid 1,000 mg/ 110 mls @ 440 mls/hr 09/30/24 07:30 Sodium Chloride IV 09/30/24 07:44 INTRAOP ONE Tranexamic Acid 1,000 mg/ 110 mls @ 440 mls/hr 09/30/24 07:30 Sodium Chloride IV 09/30/24 07:44 INTRAOP ONE Magnesium Sulfate 1 gm/ 102 mls @ 408 mls/hr 09/30/24 07:30 09/30/24 06:31 Dextrose IV 09/30/24 07:44 408 mls/hr INTRAOP ONE Administration Lactated Ringer's 1,000 mls @ 15 mls/hr 09/30/24 05:45 09/30/24 05:45 IV 15 mls/hr .Q48H JINNY Administration Insulin Human Lispro 1 - 6 unit 09/30/24 07:30 Insulin Lispro 100 Unit/Ml Insuln.Pen SC 09/30/24 18:00 Q4H PRN PRN BG>/= 180, SEE PROTOCOL Protocol PFSH Medical History Depression Anxiety Marijuana use Arthritis Bladder disease Low iron Easy bruising Back pain Injury of back Migraine headache CPAP (continuous positive airway pressure) dependence Gastric reflux Former smoker Leg cramps History of pain when walking Right renal stone Wears glasses Wears contact lenses Restless legs Ureteral calculus History of seizures Hypoglycemia Bilateral headaches Anemia Allergies Home Medications ?Medication ?Instructions ?Recorded ?Last Taken ?Type gabapentin 300 mg capsule 900 mg PO QHS 08/16/16 09/29/24 History trazodone 50 mg tablet 100 mg PO QHS 06/22/21 09/29/24 History omeprazole 20 mg capsule,delayed 20 mg PO DAILY #14 CAPSULES 03/03/24 09/30/24 Rx release cyanocobalamin (vitamin B-12) 1,000 mcg IM Q4W 05/05/24 09/25/24 History 1,000 mcg/mL injection solution dextroamphetamine sulfate 15 mg 30 mg PO 0800,1200 05/05/24 09/30/24 History capsule,extended release cephalexin 250 mg capsule 250 mg PO QHS 09/22/24 09/29/24 History dextroamphetamine sulfate 15 mg 15 mg PO 1600 09/22/24 09/29/24 History tablet Allergy/AdvReac Type Severity Reaction Status Date / Time adhesive tape Allergy Other Verified 09/30/24 06:21 aspirin Allergy Other Verified 09/30/24 06:21 bupropion (From Wellbutrin) Allergy Other Verified 09/30/24 06:21 latex Allergy Hives Verified 09/30/24 06:21 NSAIDS (Non-Steroidal Allergy Other Verified 09/30/24 06:21 Anti-Inflamma bupropion HCl (From AdvReac Other Verified 09/30/24 06:21 Wellbutrin) venlafaxine (From Effexor) AdvReac Upset Verified 09/30/24 06:21 Stomach Family History Other Cancer Surgical History History of carpal tunnel surgery of right wrist History of carpal tunnel surgery of left wrist Hx of hemorrhoidectomy Hx of hernia repair History of gastric bypass History of ear surgery History of lithotripsy S/P tubal ligation History of section Social History Smoking Status: Former smoker quit status: not considering quitting alcohol intake: never substance use type: does not use what type of physical activity do you participate in: none Review of Systems (Anesthesia) ROS Narrative System reviewed and no additional complaints, except as documented.
--- NOTE | 2024-09-30 06:43 | PCM.PRE.AN2 ---
ASA Classification* ASA Classification ASA Classification: 2 Assessment & Plan Anesthesia* Anesthesia Assessment Anesthesia Assessment: Discussed sedation and/or anesthesia options, risks, benefits, and alternatives with patient/parents/legal guardian/POA. Questions invited. The patient/parents/legal guardian/POA seems to understand and agrees to proceed with anesthesia plan. Reviewed the physical assessment, medical history, allergy history and patient home medications list prior to surgery/procedure/anesthetic and documented any changes. Performed airway and anesthesia risk assessments. Anesthesia Type Anesthesia Type: General History Source History Obtained from:: Patient and Chart Anesthesia Focused Assessment* Temperature: 97.7 F Pulse Rate: 72 Blood Pressure: 118/85 Respiratory Rate: 18 Pulse Ox: 97 Oxygen Delivery Method: Room Air Airway Assessment Mouth opens: >3 cm Mallampati Score: II Teeth Condition: Caps/Crowns (Patient has 1 crown. It is tight.) and Missing (Patient has couple missing teeth. Rest are tight.) Neck Range of motion (ROM): Full ROM Labs Anesthesia Preop lab: CBC WBC 5.8 K/mm3 (4.4-11.0) 09/23/24 14:09/23/24 RBC 4.18 M/mm3 (4.2-5.4) L 09/23/24 14:09/23/24 Hgb 12.4 g/dL (12.0-15.0) 09/23/24 14:09/23/24 Hct 36.7 % (37-47) L 09/23/24 14:09/23/24 Plt Count 240 K/mm3 (150-450) 09/23/24 14:09/23/24 CHEMISTRY Potassium 3.8 mmol/L (3.3-5.1) 09/23/24 14:09/23/24 Sodium 140 mmol/L (133-145) 09/23/24 14:09/23/24 Magnesium 2.1 mg/dL (1.5-2.2) 09/23/24 14:09/23/24 BUN 13 mg/dL (4-19) 09/23/24 14:09/23/24 Creatinine 0.89 mg/dL (0.70-1.20) 09/23/24 14:09/23/24 Glucose 94 mg/dL (70-99) 09/23/24 14:26 09/23/24 POC Glucose 69 mg/dL (74-106) L 09/30/24 05:49 09/30/24 COAG Urine Test Negative Negative 03/03/24 10:55 03/03/24 Pre-Assessment Diagnosis/Proposed Procedure Planned Operative Procedure(s): LEFT LUMBAR DISCECTOMY L5-S1 Anesthesia History 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 When Was Last Pacemaker Check QUESTION #4 FULL TEXT: You/Your Family Experience fever (hyperthermia) with Anesthesia Last Oral Intake Last Oral intake: Last Oral Intake NPO since 03:30 09/30/24 06:23 Meds taken in AM with sips of water? 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 Female Yes 09/22/24 08:33 HX of Motion Sickness No 09/22/24 08:33 HX of N/V After Surgery No 09/22/24 08:33 Non-Smoker Yes 09/22/24 08:33 Duration of Surgery greater Yes 09/22/24 08:33 than 60 minutes Number of Risk Factors 3 09/22/24 08:33 PONV Score Moderate Risk 09/22/24 08:33 Height & Weight Height & Weight: Anesthesia: Height & Weight Height 5 ft 5 in 09/30/24 06:23 Weight: 92.9 kg 09/30/24 06:23 Body Mass Index (BMI) 34.0 09/30/24 06:23 Respiratory Assessment Respiratory Assessment - washerette machine operator: Respiratory Tract Infection Hx - 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 Has anyone observed you stop breathing during sleep? STOP Results Positive 09/22/24 08:33 QUESTION #5 FULL TEXT : Do you snore loudly (louder than talking or can be heard through closed doors)? 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: /Reproductive Hx- washerette machine operator Hx Now No 09/22/24 08:33 Gestational Age (in weeks): EDC: Hx Hx Para Hx Section SAB No 09/22/24 08:33 Active Medications Active Medications: Current Medications Generic Name Dose Route Start Last Admin Trade Name Freq PRN Reason Stop Dose Admin Acetaminophen 1,000 mg 09/30/24 07:30 09/30/24 06:22 Acetaminophen 500 Mg Tablet PO 09/30/24 07:31 1,000 mg PREOP ONE Administration Cefazolin Sodium 2 gm/ Sodium 110 mls @ 150 mls/hr 09/30/24 07:30 Chloride IV 09/30/24 08:13 INTRAOP ONE Tranexamic Acid 1,000 mg/ 110 mls @ 440 mls/hr 09/30/24 07:30 Sodium Chloride IV 09/30/24 07:44 INTRAOP ONE Tranexamic Acid 1,000 mg/ 110 mls @ 440 mls/hr 09/30/24 07:30 Sodium Chloride IV 09/30/24 07:44 INTRAOP ONE Magnesium Sulfate 1 gm/ 102 mls @ 408 mls/hr 09/30/24 07:30 09/30/24 06:31 Dextrose IV 09/30/24 07:44 408 mls/hr INTRAOP ONE Administration Lactated Ringer's 1,000 mls @ 15 mls/hr 09/30/24 05:45 09/30/24 05:45 IV 15 mls/hr .Q48H JINNY Administration Insulin Human Lispro 1 - 6 unit 09/30/24 07:30 Insulin Lispro 100 Unit/Ml Insuln.Pen SC 09/30/24 18:00 Q4H PRN PRN BG>/= 180, SEE PROTOCOL Protocol PFSH Medical History Depression Anxiety Marijuana use Arthritis Bladder disease Low iron Easy bruising Back pain Injury of back Migraine headache CPAP (continuous positive airway pressure) dependence Gastric reflux Former smoker Leg cramps History of pain when walking Right renal stone Wears glasses Wears contact lenses Restless legs Ureteral calculus History of seizures Hypoglycemia Bilateral headaches Anemia Allergies Home Medications ?Medication ?Instructions ?Recorded ?Last Taken ?Type gabapentin 300 mg capsule 900 mg PO QHS 08/16/16 09/29/24 History trazodone 50 mg tablet 100 mg PO QHS 06/22/21 09/29/24 History omeprazole 20 mg capsule,delayed 20 mg PO DAILY #14 CAPSULES 03/03/24 09/30/24 Rx release cyanocobalamin (vitamin B-12) 1,000 mcg IM Q4W 05/05/24 09/25/24 History 1,000 mcg/mL injection solution dextroamphetamine sulfate 15 mg 30 mg PO 0800,1200 05/05/24 09/30/24 History capsule,extended release cephalexin 250 mg capsule 250 mg PO QHS 09/22/24 09/29/24 History dextroamphetamine sulfate 15 mg 15 mg PO 1600 09/22/24 09/29/24 History tablet Allergy/AdvReac Type Severity Reaction Status Date / Time adhesive tape Allergy Other Verified 09/30/24 06:21 aspirin Allergy Other Verified 09/30/24 06:21 bupropion (From Wellbutrin) Allergy Other Verified 09/30/24 06:21 latex Allergy Hives Verified 09/30/24 06:21 NSAIDS (Non-Steroidal Allergy Other Verified 09/30/24 06:21 Anti-Inflamma bupropion HCl (From AdvReac Other Verified 09/30/24 06:21 Wellbutrin) venlafaxine (From Effexor) AdvReac Upset Verified 09/30/24 06:21 Stomach Family History Other Cancer Surgical History History of carpal tunnel surgery of right wrist History of carpal tunnel surgery of left wrist Hx of hemorrhoidectomy Hx of hernia repair History of gastric bypass History of ear surgery History of lithotripsy S/P tubal ligation History of section Social History Smoking Status: Former smoker quit status: not considering quitting alcohol intake: never substance use type: does not use what type of physical activity do you participate in: none Review of Systems (Anesthesia) ROS Narrative System reviewed and no additional complaints, except as documented.
--- NOTE | 2024-09-30 07:22 | PCM.HP.BLA ---
History and Physical MR#: [id number] Acct: [id number] Name: CITLALI GOULD Rep #: [id number] : 1985 Provider: Dr. Barney Rajan MD Age/Sex: 38/F Location[place] [facility] [email or web address] Status: Signed Intake Vital Signs 05/05/2507:22 Height 5 ft 5 in Weight: 204 lb 2 oz BMI 34.0 Intake Visit Reasons: lumbar spine Allergies adhesive tape Allergy (Verified 09/08/24 13:38) Otheraspirin Allergy (Verified 09/08/24 13:38) Otherbupropion (From Wellbutrin) Allergy (Verified 09/08/24 13:38) Otherlatex Allergy (Verified 09/08/24 13:38) HivesNSAIDS (Non-Steroidal Anti-Inflamma Allergy (Verified 09/08/24 13:38) Otherbupropion HCl (From Wellbutrin) Adverse Reaction (Verified 09/08/24 13:38) Othervenlafaxine (From Effexor) Adverse Reaction (Verified 09/08/24 13:38) Upset Stomach Medications ?Medication ?Instructions ?Recorded ?Confirmed ?Type gabapentin 300 mg capsule 900 mg PO QHS 08/16/16 09/08/24 History trazodone 50 mg tablet 50 mg PO QHS 06/22/21 09/08/24 History omeprazole 20 mg capsule,delayed 20 mg PO DAILY #14 CAPSULES 03/03/24 09/08/24 Rx release cyanocobalamin (vitamin B-12) 1,000 mcg IM Q4W 05/05/24 09/08/24 History 1,000 mcg/mL injection solution dextroamphetamine sulfate 15 mg mg PO 05/05/24 09/08/24 History capsule,extended release PFSH Medical History Right renal stone Wears glasses Wears contact lenses Restless legs Smoker Ureteral calculus Sleep apnea history of gastric byoass Vitamin D deficiency History of seizures Hypoglycemia Bilateral headaches Carpal tunnel syndrome Anemia Allergies Surgical History History of gastric bypass History of ear surgery History of lithotripsy Hx of carpal tunnel repair S/P tubal ligation History of section Family History Other Cancer Social History Smoking Status: Current every day smoker tobacco type: cigarettes quit status: not considering quitting alcohol intake: never substance use type: does not use what type of physical activity do you participate in: none HPI lumbar spine Details: This documentation accurately reflects the service provided and the decisions made by me, Dr. Barney Rajan MD 09/08/24 9512. Part of today?s visit was documented by Violeta EDUARDO and May Ramsey RN, acting as scribe. CITLALI GOULD is a 38 year old F here today for f/u on lumbar spine to discuss surgery. She denies having any recent injections since her last visit. Her last injection was in April and she reports this was helpful until . She reports working in the yard and garden the day before the pain started. She has not been on oral steroids recently. Since she has been experiencing low back pain that is worse on the left side. The pain does radiate down into her left hip and posterior leg. The pain is interfering with her daily activities and she is not able to garden. She is able to walk the entire grocery store but she does limp She reports standing from a seated position is difficult and she has weakness in her left leg. She feels as though this is affecting her function and quality of life. 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 She denies diabetes, heart or lung problems. She does not take blood thinners. 05/05/24: CITLALI GOULD is a 38 year old F here today NEW patient for low back pain that she has been having since the end of December of 2023. She denies any known injury. She does have pain that radiates into her left leg and sometimes extends into her foot. She does have numbness in her calf and the heel of her left foot. She does see Dr. Roth for pain management. She has had an MRI and xrays done at [facility] of her lumbar spine. She states that in March Dr. Blas gave her injection that helped but only for 2 weeks then about 3 weeks ago she has an injection by Dr. Roth that has been seeming to last a little longer. She has been doing PT here at [facility] which seems to be helping some with her pain. She denies taking anything for pain. Ortho Exam General General: Yes no acute distress Neurologic: Yes alert Psychologic: Yes reasonable and appropriate Spine SPINE TESTING CERVICAL THORACIC LUMBAR Musculoskeletal Strength 0=absent - 5=normal Details: Examination the back shows left paraspinal tenderness. Neurologic valuation of lower extremity shows 5 x 5 power normal shows normal sensations in all dermatomes. Passive straight leg raise test is positive on the left. Coding Level of Care Code Off vis,est,level 4 Diagnoses Lumbar disc herniation with radiculopathy M51.16 Time Spent (min) 35 Assessment and Plan Assessment and Plan (1) Lumbar disc herniation with radiculopathy: Status: Acute Plan Again reviewed x-rays and MRI of the lumbar spine. These show L5-S1 disc height loss with large left paracentral disc herniation causing lateral recess stenosis. No dynamic instability on flexion-extension views. Explained imaging findings in detail. Patient has a large disc herniation causing left S1 radiculopathy. I reviewed pt's x-rays and MRI in detail again with patient. We discussed that there is a disc herniation on the left side. Her pain improved initially with injections but since last month the pain has certainly worsened again and making it difficult for her activities of daily living. She has had this radicular pain since November of last year now. She feels as though her quality of life and function are declining. She was very emotional and tearful regarding this. We discussed all options including surgical versus non surgical options. She would like to proceed with surgery at this time. I recommend L5-S1 left microdiscectomy. We discussed the risks, benefits and alteratives to surgery. Risks include but are not limited to infection, bleeding, injury to nerves and vessels, hematoma formation, foot drop, persistent pain, persistent numbness and weakness, worsening disc degeneration, iatrogenic instability, need for fusion surgery in the future, recurrent disc herniation, DVT, pulm embolism, pneumonia, atelectasis, cardiopulmonary event. Patient understands and agrees to proceed with surgery. We discussed the restrictions after surgery including no lifting, bending or twisting. I explained the surgery in detail to patient and answered all her concerns. Follow up one week before surgery or sooner if pain, swelling, numbness or associated symptoms, or concerns develop. All questions answered. Patient in agreement of plan.
--- NOTE | 2024-09-30 07:22 | PCM.HP.BLA ---
History and Physical MR#: [id number] Acct: [id number] Name: CITLALI GOULD Rep #: [id number] : 1985 Provider: Dr. Barney Rajan MD Age/Sex: 38/F Location: [facility] [email or web address] Status: Signed Intake Vital Signs 05/05/2507:22 Height 5 ft 5 in Weight: 204 lb 2 oz BMI 34.0 Intake Visit Reasons: lumbar spine Allergies adhesive tape Allergy (Verified 09/08/24 13:38) Otheraspirin Allergy (Verified 09/08/24 13:38) Otherbupropion (From Wellbutrin) Allergy (Verified 09/08/24 13:38) Otherlatex Allergy (Verified 09/08/24 13:38) HivesNSAIDS (Non-Steroidal Anti-Inflamma Allergy (Verified 09/08/24 13:38) Otherbupropion HCl (From Wellbutrin) Adverse Reaction (Verified 09/08/24 13:38) Othervenlafaxine (From Effexor) Adverse Reaction (Verified 09/08/24 13:38) Upset Stomach Medications ?Medication ?Instructions ?Recorded ?Confirmed ?Type gabapentin 300 mg capsule 900 mg PO QHS 08/16/16 09/08/24 History trazodone 50 mg tablet 50 mg PO QHS 06/22/21 09/08/24 History omeprazole 20 mg capsule,delayed 20 mg PO DAILY #14 CAPSULES 03/03/24 09/08/24 Rx release cyanocobalamin (vitamin B-12) 1,000 mcg IM Q4W 05/05/24 09/08/24 History 1,000 mcg/mL injection solution dextroamphetamine sulfate 15 mg mg PO 05/05/24 09/08/24 History capsule,extended release PFSH Medical History Right renal stone Wears glasses Wears contact lenses Restless legs Smoker Ureteral calculus Sleep apnea history of gastric byoass Vitamin D deficiency History of seizures Hypoglycemia Bilateral headaches Carpal tunnel syndrome Anemia Allergies Surgical History History of gastric bypass History of ear surgery History of lithotripsy Hx of carpal tunnel repair S/P tubal ligation History of section Family History Other Cancer Social History Smoking Status: Current every day smoker tobacco type: cigarettes quit status: not considering quitting alcohol intake: never substance use type: does not use what type of physical activity do you participate in: none HPI lumbar spine Details: This documentation accurately reflects the service provided and the decisions made by me, Dr. Barney Rajan MD 09/08/24 2498. Part of today?s visit was documented by Violeta EDUARDO and May Ramsey RN, acting as scribe. CITLALI GOULD is a 38 year old F here today for f/u on lumbar spine to discuss surgery. She denies having any recent injections since her last visit. Her last injection was in April and she reports this was helpful until . She reports working in the yard and garden the day before the pain started. She has not been on oral steroids recently. Since she has been experiencing low back pain that is worse on the left side. The pain does radiate down into her left hip and posterior leg. The pain is interfering with her daily activities and she is not able to garden. She is able to walk the entire grocery store but she does limp She reports standing from a seated position is difficult and she has weakness in her left leg. She feels as though this is affecting her function and quality of life. 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 She denies diabetes, heart or lung problems. She does not take blood thinners. 05/05/24: CITLALI GOULD is a 38 year old F here today NEW patient for low back pain that she has been having since the end of December of 2023. She denies any known injury. She does have pain that radiates into her left leg and sometimes extends into her foot. She does have numbness in her calf and the heel of her left foot. She does see Dr. Roth for pain management. She has had an MRI and xrays done at [facility] of her lumbar spine. She states that in March Dr. Blas gave her injection that helped but only for 2 weeks then about 3 weeks ago she has an injection by Dr. Roth that has been seeming to last a little longer. She has been doing PT here at [facility] which seems to be helping some with her pain. She denies taking anything for pain. Ortho Exam General General: Yes no acute distress Neurologic: Yes alert Psychologic: Yes reasonable and appropriate Spine SPINE TESTING CERVICAL THORACIC LUMBAR Musculoskeletal Strength 0=absent - 5=normal Details: Examination the back shows left paraspinal tenderness. Neurologic valuation of lower extremity shows 5 x 5 power normal shows normal sensations in all dermatomes. Passive straight leg raise test is positive on the left. Coding Level of Care Code Off vis,est,level 4 Diagnoses Lumbar disc herniation with radiculopathy M51.16 Time Spent (min) 35 Assessment and Plan Assessment and Plan (1) Lumbar disc herniation with radiculopathy: Status: Acute Plan Again reviewed x-rays and MRI of the lumbar spine. These show L5-S1 disc height loss with large left paracentral disc herniation causing lateral recess stenosis. No dynamic instability on flexion-extension views. Explained imaging findings in detail. Patient has a large disc herniation causing left S1 radiculopathy. I reviewed pt's x-rays and MRI in detail again with patient. We discussed that there is a disc herniation on the left side. Her pain improved initially with injections but since last month the pain has certainly worsened again and making it difficult for her activities of daily living. She has had this radicular pain since November of last year now. She feels as though her quality of life and function are declining. She was very emotional and tearful regarding this. We discussed all options including surgical versus non surgical options. She would like to proceed with surgery at this time. I recommend L5-S1 left microdiscectomy. We discussed the risks, benefits and alteratives to surgery. Risks include but are not limited to infection, bleeding, injury to nerves and vessels, hematoma formation, foot drop, persistent pain, persistent numbness and weakness, worsening disc degeneration, iatrogenic instability, need for fusion surgery in the future, recurrent disc herniation, DVT, pulm embolism, pneumonia, atelectasis, cardiopulmonary event. Patient understands and agrees to proceed with surgery. We discussed the restrictions after surgery including no lifting, bending or twisting. I explained the surgery in detail to patient and answered all her concerns. Follow up one week before surgery or sooner if pain, swelling, numbness or associated symptoms, or concerns develop. All questions answered. Patient in agreement of plan.
--- NOTE | 2024-09-30 07:40 | RAD_ITS ---
PROCEDURE: LUMBAR SPINE 2 OR 3 VIEWS 09/30/2024 REASON FOR EXAM: LT LUMBAR DISCECTOMY L5-S1 TECHNIQUE: LUMBAR SPINE 2 OR 3 VIEWS COMPARISON: None FINDINGS: Fluoroscopic guidance was used intraoperatively for this lumbar discectomy at L5-S1. Total 10 images were obtained. Total fluoroscopy time was 37 seconds. Total radiation dose was 28.92 mGy. RAD/Lumbar Spine 2 or 3 Views IMPRESSION: Fluoroscopic guidance was used intraoperatively. Please refer to the operative note for further details. Reading Location: [id number]
--- NOTE | 2024-09-30 07:40 | RAD_ITS ---
PROCEDURE: LUMBAR SPINE 2 OR 3 VIEWS 09/30/2024 REASON FOR EXAM: LT LUMBAR DISCECTOMY L5-S1 TECHNIQUE: LUMBAR SPINE 2 OR 3 VIEWS COMPARISON: None FINDINGS: Fluoroscopic guidance was used intraoperatively for this lumbar discectomy at L5-S1. Total 10 images were obtained. Total fluoroscopy time was 37 seconds. Total radiation dose was 28.92 mGy. RAD/Lumbar Spine 2 or 3 Views IMPRESSION: Fluoroscopic guidance was used intraoperatively. Please refer to the operative note for further details. Reading Location: [id number]
[2024-09-30] MEDS: Cefazolin 2 GM in 0.9% Normal Saline (100mL Bag) 100 ML IV (07:55)
[2024-09-30] MEDS: TRANEXAMIC ACID 1,000 MG in 0.9% Normal Saline (100mL Bag) 100 ML 440 MG IV ×2 (07:58→09:30)
[2024-09-30] MEDS: Bupiv/Epi 0.25% 30 ML Vial (09:39)
--- NOTE | 2024-09-30 10:08 | PCM.OPRPT ---
Procedures Musculoskeletal 20xxx-29xxx: Other Procedure See Report Operative Report (Standard) Operative Information Date of Procedure: 09/30/24 Pre-Operative Diagnosis: L5-S1 left sided disc herniation with radiculopathy Post-Operative Diagnosis: Same Surgery/Procedure Performed: L5-S1 left microdiscectomy venereal disease control head: Yes Self Propelled Mining Machine Operator: Nupur Canales Tasks completed by first line production supervisor: Closing, Hemostasis: Electrocautery and Retracting Type of Anesthesia: General RN Documented Start/Stop Times: Operation Date: 09/30/24 07:30 Case Time Into Pre-Op 09/30/24 05:41 Out of Pre-Op 09/30/24 07:30 Anesthesia Start 09/30/24 07:34 Into Room 09/30/24 07:34 Procedure Start 09/30/24 08:09 Procedure End 09/30/24 09:41 Anesthesia End 09/30/24 09:47 Out of Room 09/30/24 09:47 Into Recovery 09/30/24 09:50 Procedure Start Time: 08:09 Procedure Stop Time: 09:41 Select all DRAINS/GRAFTS/IMPLANTS that apply: None Estimated Blood Loss: 5 cc Specimen collected: No Description of surgery: Preoperative diagnosis: L5-S1 left paracentral disc herniation with radiculopathy Postoperative diagnosis: Same Name of procedure: L5-S1 left sided microdiscectomy CPT 02064 Attending Surgeon: Dr. Barney Rajan Estimated blood loss: 5 mL Anesthesia: General Indications: Patient is a 38-year-old lady who presented with low back pain and severe left lower extremity radiation. MRI revealed L5-S1 Left paracentral disc herniation. All options of treatment were discussed which included continued nonoperative treatment measures like rest physical therapy, injections. After prolonged nonsurgical treatment, patient requested surgical intervention for microdiscectomy. All risks and benefits associated with the procedure were explained to the patient. The risks include but are not limited to infection, bleeding, injury to nerves and vessels, persistent paresthesia, incidental dural tear, recurrent disc herniation, spinal instability and need for fusion or other procedures in future, persistent pain, persistent weakness and numbness, etc. Procedure: The patient was identified in the preoperative holding suite using Unique patient identifiers. Skin was marked, consent was reviewed, and all questions were answered. The patient was then brought back to the operative room. A surgical timeout was performed to make sure correct procedure was being done on the correct patient and all operative room staff were on the same page. General endotracheal anesthesia was then given to the patient. The patient was then turned prone onto a Isael table over a Bronson frame. The back was prepped and draped in usual fashion. Preoperative antibiotic was given. A final timeout was then again done just before starting the procedure. Incision was marked using the AP view to show the L5-S1 interspace towards the left. An incision was then carried out Just to the left of the midline. Fascia was incised vertically. Serial dilator was then passed deep into the L5-S1 interspace under C-arm control. Minimally invasive cannula was then passed over the last dilator. Inferior edge of the L5 lamina was identified and palpated. Under light based direct visualization, remainder of the muscle tissue was cauterized and inferior edge of lamina as well as flavum was identified. Straight biters were then utilized to resect the flavum and the epidural space was entered. Up-biting instrument was then used to remove the remainder of the flavum going up to the lateral recess. Epidural fat was removed. Traversing left S1 nerve root was identified. This was carefully teased off of the underlying disc with a help of Chadwick Dissector. Significant adhesions were noticed on the undersurface of the left S1 nerve root. Some disc fragments were debulked through the axilla of the nerve root. The traversing S1 nerve root was then carefully retracted medially to expose the disc. Nerve hook was utilized to tease out the extruded fragments. These were removed piecemeal with the help of pituitaries. Annulotomy was identified and loose fragments were also removed from the disc space. Once adequate decompression was achieved, feeler probe was then used to make sure the nerve was well decompressed and all disc fragments extruded underneath the nerve were all removed. Hemostasis was achieved. Closure was done with help of 2-0 Vicryl for subcutaneous tissue and 4-0 Monocryl for the skin. The skin closure was augmented with Dermabond. 2 x 2 gauze was then placed over the wound covered with Tegaderm. The patient was then turned supine onto a hospital bed. The patient was extubated and taken to PACU in stable condition. The patient tolerated the procedure well and no complications occurred. Estimated blood loss for the entire surgery was 5 mL. No instrumentation was utilized in this case. No obvious dural leak was identified in this case. Neuromonitoring was utilized during the surgery and all sensory and EMG potentials remained at baseline. I was present for the entirety of the case and performed the surgery myself. Property Analyst Nupur Canales PA-C. My physician assistant therapy aide was a vital part of this case. They were important in appropriate retraction during the case, and protection of soft tissues during the procedure. Their intimate knowledge of the case and my steps aided in safe and expedient completion of the procedure as well as appropriate position of the patient during the surgery. They were also vital in assisting with closure under my direct supervision. Surgical Findings: See operative note Complications Complications: No
--- NOTE | 2024-09-30 13:19 | PCM.POST.ANE ---
Anesthesia: Postop Eval I Current Vital Signs Temperature: 98.3 F Pulse Rate: 86 Blood Pressure: 134/80 Respiratory Rate: 18 Pulse Ox: 100 Oxygen Delivery Method: Room Air Assessment Airway patent: Yes Spontaneous unlabored respirations: Yes Mental status: Awake and Calm nausea: No Vomiting: No Anesthesia Complication: No Fluid Hydration Crystalloid volume administer (ml): 1,500 Total IV fluid infused: 1,500 Progress Note Anesthesia document: Postop Eval 1 completed: Yes
--- NOTE | 2024-09-30 16:46 | POSTOPAN2_ITS ---
Anesthesia Postop Eval I Sum Postop Eval Completion status Anesthesia document: Postop Eval 1 completed: Yes Anesthesia Postop Eval I Summary Anesthesia Postop Eval I Summary: Anesthesia Postop Eval I: Assessment Summary Airway patent Yes 09/30/24 13:20 QUALITY WORKER.ACAR Spontaneous unlabored Yes 09/30/24 13:20 QUALITY WORKER.ACAR respirations Mental status Awake,Calm 09/30/24 13:20 QUALITY WORKER.ACAR nausea No 09/30/24 13:20 QUALITY WORKER.ACAR Vomiting No 09/30/24 13:20 QUALITY WORKER.ACAR Anesthesia Postop Eval I: Fluid Summary Crystalloid volume administer 1,500 09/30/24 13:20 QUALITY WORKER.ACAR (ml) Colloids volume administered ( ml) Blood Product volume administered (ml) Total IV fluid infused 1,500 09/30/24 13:20 QUALITY WORKER.ACAR Anesthesia Postop Eval I: Summary Notes Anesthesia Complication No 09/30/24 13:20 QUALITY WORKER.ACAR Anesthesia Complication Comment: Post-operative progress note Anesthesia: Postop Eval II Evaluation Mental status: Awake and Calm Pain Level: 2 nausea: No Vomiting: No Complications Anesthesia Complication: No
--- NOTE | 2024-09-30 16:46 | POSTOPAN2_ITS ---
Anesthesia Postop Eval I Sum Postop Eval Completion status Anesthesia document: Postop Eval 1 completed: Yes Anesthesia Postop Eval I Summary Anesthesia Postop Eval I Summary: Anesthesia Postop Eval I: Assessment Summary Airway patent Yes 09/30/24 13:20 AREA SALES MANAGER.ACAR Spontaneous unlabored Yes 09/30/24 13:20 AREA SALES MANAGER.ACAR respirations Mental status Awake,Calm 09/30/24 13:20 AREA SALES MANAGER.ACAR nausea No 09/30/24 13:20 AREA SALES MANAGER.ACAR Vomiting No 09/30/24 13:20 AREA SALES MANAGER.ACAR Anesthesia Postop Eval I: Fluid Summary Crystalloid volume administer 1,500 09/30/24 13:20 AREA SALES MANAGER.ACAR (ml) Colloids volume administered ( ml) Blood Product volume administered (ml) Total IV fluid infused 1,500 09/30/24 13:20 AREA SALES MANAGER.ACAR Anesthesia Postop Eval I: Summary Notes Anesthesia Complication No 09/30/24 13:20 AREA SALES MANAGER.ACAR Anesthesia Complication Comment: Post-operative progress note Anesthesia: Postop Eval II Evaluation Mental status: Awake and Calm Pain Level: 2 nausea: No Vomiting: No Complications Anesthesia Complication: No
--- NOTE | 2024-09-30 16:46 | PCM.POSTANE2 ---
Anesthesia Postop Eval I Sum Postop Eval Completion status Anesthesia document: Postop Eval 1 completed: Yes Anesthesia Postop Eval I Summary Anesthesia Postop Eval I Summary: Anesthesia Postop Eval I: Assessment Summary Airway patent Yes 09/30/24 13:20 PROCESS PLANNER.ACAR Spontaneous unlabored Yes 09/30/24 13:20 PROCESS PLANNER.ACAR respirations Mental status Awake,Calm 09/30/24 13:20 PROCESS PLANNER.ACAR nausea No 09/30/24 13:20 PROCESS PLANNER.ACAR Vomiting No 09/30/24 13:20 PROCESS PLANNER.ACAR Anesthesia Postop Eval I: Fluid Summary Crystalloid volume administer 1,500 09/30/24 13:20 PROCESS PLANNER.ACAR (ml) Colloids volume administered ( ml) Blood Product volume administered (ml) Total IV fluid infused 1,500 09/30/24 13:20 PROCESS PLANNER.ACAR Anesthesia Postop Eval I: Summary Notes Anesthesia Complication No 09/30/24 13:20 PROCESS PLANNER.ACAR Anesthesia Complication Comment: Post-operative progress note Anesthesia: Postop Eval II Evaluation Mental status: Awake and Calm Pain Level: 2 nausea: No Vomiting: No Complications Anesthesia Complication: No
--- NOTE | 2024-09-30 16:46 | PCM.POSTANE2 ---
Anesthesia Postop Eval I Sum Postop Eval Completion status Anesthesia document: Postop Eval 1 completed: Yes Anesthesia Postop Eval I Summary Anesthesia Postop Eval I Summary: Anesthesia Postop Eval I: Assessment Summary Airway patent Yes 09/30/24 13:20 PARISH NURSE.ACAR Spontaneous unlabored Yes 09/30/24 13:20 PARISH NURSE.ACAR respirations Mental status Awake,Calm 09/30/24 13:20 PARISH NURSE.ACAR nausea No 09/30/24 13:20 PARISH NURSE.ACAR Vomiting No 09/30/24 13:20 PARISH NURSE.ACAR Anesthesia Postop Eval I: Fluid Summary Crystalloid volume administer 1,500 09/30/24 13:20 PARISH NURSE.ACAR (ml) Colloids volume administered ( ml) Blood Product volume administered (ml) Total IV fluid infused 1,500 09/30/24 13:20 PARISH NURSE.ACAR Anesthesia Postop Eval I: Summary Notes Anesthesia Complication No 09/30/24 13:20 PARISH NURSE.ACAR Anesthesia Complication Comment: Post-operative progress note Anesthesia: Postop Eval II Evaluation Mental status: Awake and Calm Pain Level: 2 nausea: No Vomiting: No Complications Anesthesia Complication: No
== END 2024-09-30 12:30 | disposition home or self-care (01) ==
LOC: SDC 05:28 → AC 05:31
PROVIDERS: Anesthesiology; PCP Family Medicine; Referring Provider Orthopaedic Surgery Orthopaedic Surgery of the Spine; Visit Provider Orthopaedic Surgery Orthopaedic Surgery of the Spine
PROC: 0SB24ZZ Excision of Lumbar Vertebral Disc, Percutaneous Endoscopic Approach (ICD-10-PCS; CPT 62287; principal; 2024-09-30 07:15)
DX: M51.16 Intervertebral disc disorders with radiculopathy, lumbar region (principal); M51.27 Other intervertebral disc displacement, lumbosacral region; M51.26 Other intervertebral disc displacement, lumbar region; F32.A Depression, unspecified; F41.9 Anxiety disorder, unspecified; G25.81 Restless legs syndrome; Z98.84 Bariatric surgery status; Z79.899 Other long term (current) drug therapy; Z87.891 Personal history of nicotine dependence
CPT/HCPCS: 63030; 00630; 36415; 72100; 76000; 80048; 82962; 83036; 83735; 85025; 86703; 86706; 86708; 86803; 86850; 86900; 86901; 87081; J2405; J3475

== ENCOUNTER → 2024-12-03 | Outpatient (CLI) | payer OTHER, SELFPAY ==
--- NOTE | 2024-12-03 13:25 | MRI_ITS ---
PROCEDURE: LOWER EXT JOINT ONLY (ROUTINE) 12/03/2024 REASON FOR EXAM: PAIN, EVAL PATELLAR TENDON, MENISCUS TECHNIQUE: Procedure Code: MRILEJ Modality: MR Procedure: LOWER EXT JOINT ONLY (ROUTINE) Multiplanar and multisequence images were obtained without IV contrast administration. COMPARISON: 11-03-2024 CR FINDINGS: Abnormal modeling of the inferior patellar pole showing abnormal contour, possibly old post traumatic sequel Thinning and denudation of the patellar articular cartilage showing thinning intrasubstance high signal with underlying subcortical marrow edema signal. Intact patellar and quadriceps tendons showing homogenous signal with no obvious tears Intact anterior cruciate ligament The posterior cruciate ligament is intact. The collateral ligament, medial and lateral patellar retinaculi are intact. The posterior horn of the medial meniscus shows high signal not interrupting meniscal articular surfaces. Intact lateral meniscus. Mild knee joint effusion. Multilocular Reese's cyst is noted No marrow infiltrative lesions. Normal MR appearance of the abril-articular musculature. Subcutaneous soft tissue edema of the anterior aspect of the knee. MRI/Lower Ext Joint Only (Routine) IMPRESSION: Abnormal modeling of the inferior patellar pole showing abnormal contour, possi bharat old post traumatic sequel Grade III patellar chondromalacia. Intact patellar and quadriceps tendons showing homogenous signal with no obviou s tears Grade I signal of the posterior horn of the medial meniscus. Mild knee joint effusion with Reese's cyst. Pre-patellar subcutaneous soft tissue edema. Reading Location[facility] [id number]
== END | disposition home or self-care (01) ==
LOC: MRI 13:23
PROVIDERS: PCP Family Medicine; Referring Provider Orthopaedic Surgery Sports Medicine; Visit Provider Orthopaedic Surgery Sports Medicine
DX: M17.11 Unilateral primary osteoarthritis, right knee (principal); M25.561 Pain in right knee
CPT/HCPCS: 73721

== ENCOUNTER → 2025-01-07 | Outpatient (CLI) | payer OTHER, SELFPAY | END | disposition home or self-care (01) | LOC: MRI 08:10 | PROVIDERS: PCP Family Medicine; Referring Provider Student in an Organized Health Care Education/Training Program; Visit Provider Student in an Organized Health Care Education/Training Program | DX: M54.16 Radiculopathy, lumbar region (principal); Z98.890 Other specified postprocedural states | CPT/HCPCS: 72158; A9575; A4216 ==